=== PATIENT | male | born 1945 | race Caucasian/White ===

== ENCOUNTER 2019-09-25 07:35 | Outpatient (CLI) | payer MEDICARE, SELFPAY ==
[2019-09-25 08:16] LABS: Basophils Absolute Auto 0.1 K/mm3 (0.0-0.1); Basophils Percent Auto 0.8 % (0.2-1.2); Eosinophils Absolute Auto 0.3 K/mm3 (0-0.3); Eosinophils Percent Auto 3.4 % (0-4.4); Hematocrit 46.8 % (42.0-52.0); Immature Granulocyte Absolute 0.04 K/mm3 (0.00-0.031); Immature Granulocyte Percent A 0.5 % (0-0.5); Lymphocytes Absolute Auto 1.25 K/mm3 (0.9-3.2); Lymphocytes Percent Auto 17.1 % (18.3-44.2); Mean Corpuscular HGB Conc 32.1 g/dl (32-36); Mean Corpuscular Hemoglobin 30.3 pg (26-34); Mean Corpuscular Volume 94.5 fl (80-100); Mean Platelet Volume 9.8 fl (7.4-10.4); Monocytes Absolute Auto 0.6 K/mm3 (0.1-0.6); Monocytes Percent Auto 7.7 % (2.6-8.5); Neutrophils Absolute Auto 5.1 K/mm3 (1.3-6.7); Neutrophils Percent Auto 70.5 % (45.5-73.1); Platelet Count Result 187 k/mm3 (150-375); Red Blood Count 4.95 M/mm3 (4.6-6.20); Red Cell Distribution Width 12.7 % (11.5-14.5); White Blood Count 7.3 K/mm3 (4.5-10.0)
[2019-09-25 08:20] LABS: Hemoglobin A1C 6.7 % (<5.7)
[2019-09-25 08:23] LABS: Potassium 4.4 mmol/L (3.4-5.0)
[2019-09-25 08:28] LABS: Blood Urea Nitrogen 27 mg/dL (9-20); Calcium 9.3 mg/dL (8.4-10.2); Carbon Dioxide 27 mmol/L (22-30); Chloride 99 mmol/L (98-107); Cholesterol 140 mg/dL (0-200); Estimated Glomerular Filt Rate > 60; Glucose 147 mg/dL (75-110); HDL Direct 33 mg/dL; Sodium 139 mmol/L (137-145); Triglycerides 150 mg/dL (<150)
[2019-09-25 08:34] LABS: LDL Cholesterol Direct 68 mg/dL
[2019-09-25 09:01] LABS: Microalbumin Urine Random 9.7 mg/L (0-16.7)
[2019-09-25 09:16] LABS: Creatinine Urine 107.6 mg/dL
== END 2019-09-25 07:36 | disposition home or self-care (01) ==
PROVIDERS: PCP Internal Medicine; Visit Provider Internal Medicine
DX: I10 Essential (primary) hypertension (principal); E11.9 Type 2 diabetes mellitus without complications; E78.2 Mixed hyperlipidemia; Z79.899 Other long term (current) drug therapy
CPT/HCPCS: 36415; 80048; 80061; 82043; 83036; 84443; 85025

== ENCOUNTER 2020-02-04 07:00 | Outpatient (CLI) | payer MEDICARE, SELFPAY ==
[2020-02-04 08:05] LABS: Alanine Aminotransferase 19 U/L (4-50); Albumin Level 4.1 g/dL (3.5-5.1); Alkaline Phosphatase 102 U/L (38-126); Aspartate Amino Transferase 25 U/L (17-59); Bilirubin,Total 0.8 mg/dL (0.2-1.3); Blood Urea Nitrogen 19 mg/dL (9-20); Calcium 8.8 mg/dL (8.4-10.2); Carbon Dioxide 25 mmol/L (22-30); Chloride 105 mmol/L (98-107); Cholesterol 154 mg/dL (0-200); Estimated Glomerular Filt Rate > 60; Glucose 150 mg/dL (75-110); HDL Direct 28 mg/dL; Potassium 4.1 mmol/L (3.4-5.0); Sodium 136 mmol/L (137-145); Triglycerides 172 mg/dL (<150)
[2020-02-04 08:07] LABS: Hemoglobin A1C 6.8 % (<5.7)
[2020-02-04 08:17] LABS: LDL Cholesterol Direct 84 mg/dL
[2020-02-04 08:19] LABS: Creatinine Urine 72.2 mg/dL
[2020-02-04 08:23] LABS: MALB Creatinine Ratio 8.9 mg/g (0-30); Microalbumin Urine Random 6.4 mg/L (0-16.7)
== END 2020-02-04 07:01 | disposition home or self-care (01) ==
PROVIDERS: PCP Internal Medicine; Visit Provider Internal Medicine
DX: E11.9 Type 2 diabetes mellitus without complications (principal); I10 Essential (primary) hypertension; E78.2 Mixed hyperlipidemia
CPT/HCPCS: 36415; 80048; 80061; 80076; 82043; 83036

== ENCOUNTER 2020-03-22 00:51 | Outpatient (CLI) | payer MEDICARE, SELFPAY ==
[2020-03-22 18:41] LABS: SARS-CoV-2 RNA PCR Negative
== END 2020-03-22 00:52 | disposition home or self-care (01) ==
LOC: ANHCOVIDDT 00:51
PROVIDERS: PCP Internal Medicine; Visit Provider Internal Medicine Gastroenterology
DX: Z20.828 Contact with and (suspected) exposure to other viral communicable diseases (principal)
CPT/HCPCS: 87635; C9803; U0003

== ENCOUNTER 2020-03-24 01:48 | Day surgery (SDC) | payer MEDICARE, SELFPAY ==
[2020-03-17 08:59] VITALS: BMI 37.7
[2020-03-24 06:29] VITALS: BP 122/81; PULSE 61; RESP 18; TEMP 36.3; O2SAT 97; BMI 37.1
[2020-03-24] MEDS: LACTATED RINGERS 1,000 ML 150 ML IV CONT (06:42)
[2020-03-24 07:01] LABS: Glucose Point of Care 207 (65-105)
--- NOTE | 2020-03-24 07:09 | WPDANESEPPF ---
Anes - Initial Pre Proc Eval Procedure: Operation Date: 03/24/20 07:30 Proposed Procedures p Screening Colonoscopy - Quincy Blackwell MD Date/Time: 03/24/20 07:09 Surgeon: Quincy Blackwell MD Pre Op Diagnosis: neoplasm screening Patient Data Age: 74 Gender: M Height: 5 ft 8 in Weight: 110.9 kg Last Vital Signs Temp 97.4 F L 03/24/20 06:29 Pulse 61 03/24/20 06:29 Resp 18 03/24/20 06:29 BP 122/81 03/24/20 06:29 Pulse Ox 97 03/24/20 06:29 Allergies Allergy/AdvReac Type Severity Reaction Status Date / Time JACKIE Inhibitors Allergy Unknown Unknown Verified 03/24/20 06:27 Home Medications Medication Instructions Recorded Confirmed Type sitagliptin 100 mg tablet 100 mg PO DAILY #30 tablet 08/18/19 03/24/20 Rx amlodipine 2.5 mg tablet 2.5 mg PO DAILY 09/27/19 03/24/20 History aspirin 81 mg tablet,delayed 81 mg PO DAILY 09/27/19 03/24/20 History release dapagliflozin 5 mg tablet 5 mg PO DAILY 09/27/19 03/24/20 History melatonin 10 mg tablet 10 mg PO HS PRN tablet 09/27/19 03/24/20 History multivitamin 1 tablet PO DAILY 09/27/19 03/24/20 History nitroglycerin 0.4 mg sublingual 0.4 mg SUBLINGUAL Q5M PRN 09/27/19 03/17/20 History tablet omega-3 fatty acids 1,000 mg 1,000 mg PO BID 09/27/19 03/24/20 History capsule triamcinolone acetonide 0.1 % 1 applic TOPICAL BID PRN 09/27/19 03/24/20 History topical cream carvedilol 3.125 mg tablet 3.125 mg PO Q12H #180 tablet 12/06/19 03/24/20 Rx telmisartan 80 mg tablet 80 mg PO DAILY #90 tablet 12/28/19 03/24/20 Rx atorvastatin 40 mg tablet 40 mg PO DAILY #90 tablet 01/04/20 03/24/20 Rx ascorbic acid (vitamin C) 1,000 mg 1,000 mg PO Q12H 06/30/20 08/14/20 History tablet,extended release spironolactone 25 mg tablet 25 mg PO DAILY #90 tablet 02/08/20 03/24/20 Rx trazodone 50 mg PO .COMPLEX PRN 03/17/20 03/24/20 History Laboratory Tests 03/24/20 06:41 POC Capillary Glucose 207 mg/dl H mg/dl (65-105) Patient hx anesthesia problems: none Family hx anesthesia problems: none [facility] Past Medical History Medical History (Updated 02/08/20 @ 08:34 by Holly Perez CMA) Abnormal finding of blood chemistry ASHD (arteriosclerotic heart disease) Benign essential hypertension Bilateral cataracts BMI 37.0-37.9, adult Cardiac defibrillator in place Cardiomyopathy Colon cancer screening DM type 2 (diabetes mellitus, type 2) Elevated PSA Encounter for routine adult health examination without abnormal findings FHx: colon cancer Hyperlipidemia On residential drug therapy Vitamin D deficiency Surgical History Surgical History History of total right knee replacement Social History Social History Second hand tobacco smoke exposure: No Smoking end date: 08/11/85 Alcohol intake: never Anes - Eval Final PreProcedure Day of Procedure 03/24/20 07:09 Patient weight: obese Heart: regular rate and rhythm Lungs: clear to auscultation Airway: Mallampati scale class III Neurological: alert and oriented Last oral intake: >/= 8 hours ASA classification: IV Emergent: no Anesthetic plan: proceed Anesthesia type and monitoring: general GIVS and standard monitoring Informed Consent: The patient's anesthetic plan and its attendant risks and benefits were discussed with the patient/family/POA. Questions were solicited and answers provided to the satisfaction of the patient/family/POA.
--- NOTE | 2020-03-24 07:12 | PM.HPGS ---
History of Present Illness History of Present Illness Consent: Risks, benefits, and alternatives have been discussed and questions answered. Patient agrees to proceed with procedure. Chief complaint: neoplasm screening Narrative: Kenny Schneider is a 74 year old male Here for screening colonoscopy. 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 Vitamin D deficiency Surgical History Surgical History History of total right knee replacement Family History Family History Father Family history of cardiovascular disease Family history of heart disease in male family member before age 55 Mother Family history of cardiovascular disease Family history of heart disease in male family member before age 55 Social History Social History Second hand tobacco smoke exposure: No Smoking end date: 08/11/85 Alcohol intake: never Meds Home Medications and Allergies Home Medications Medication Instructions Recorded Confirmed Type sitagliptin 100 mg tablet 100 mg PO DAILY #30 tablet 08/18/19 03/24/20 Rx amlodipine 2.5 mg tablet 2.5 mg PO DAILY 09/27/19 03/24/20 History aspirin 81 mg tablet,delayed 81 mg PO DAILY 09/27/19 03/24/20 History release dapagliflozin 5 mg tablet 5 mg PO DAILY 09/27/19 03/24/20 History melatonin 10 mg tablet 10 mg PO HS PRN tablet 09/27/19 03/24/20 History multivitamin 1 tablet PO DAILY 09/27/19 03/24/20 History nitroglycerin 0.4 mg sublingual 0.4 mg SUBLINGUAL Q5M PRN 09/27/19 03/17/20 History tablet omega-3 fatty acids 1,000 mg 1,000 mg PO BID 09/27/19 03/24/20 History capsule triamcinolone acetonide 0.1 % 1 applic TOPICAL BID PRN 09/27/19 03/24/20 History topical cream carvedilol 3.125 mg tablet 3.125 mg PO Q12H #180 tablet 12/06/19 03/24/20 Rx telmisartan 80 mg tablet 80 mg PO DAILY #90 tablet 12/28/19 03/24/20 Rx atorvastatin 40 mg tablet 40 mg PO DAILY #90 tablet 01/04/20 03/24/20 Rx ascorbic acid (vitamin C) 1,000 mg 1,000 mg PO Q12H 02/08/20 03/24/20 History tablet,extended release spironolactone 25 mg tablet 25 mg PO DAILY #90 tablet 02/08/20 03/24/20 Rx trazodone 50 mg PO .COMPLEX PRN 03/17/20 03/24/20 History Allergies Allergy/AdvReac Type Severity Reaction Status Date / Time JACKIE Inhibitors Allergy Unknown Unknown Verified 03/24/20 06:27 Vital Signs Vital Signs - 24 hr 03/24/20 06:29 Temperature 36.3 C L Pulse Rate 61 Respiratory Rate 18 Blood Pressure 122/81 Pulse Oximetry 97 Exam Resp: Auscultation: clear to auscultation bilaterally Cardio: Rate: regular rate Rhythm: regular rhythm GI: GI Palp: Yes Soft to palpation and No Tenderness to palpation present (GI) Assessment and Plan Assessment and plan (1) Colon cancer screening: Code(s): Z12.11 - Encounter for screening for malignant neoplasm of colon Status: Acute Assessment and Plan: Colonoscopy with possible biopsy or polypectomy or cautery or injection of substances.
[2020-03-24 07:56] VITALS: BP 91/54; PULSE 82; RESP 20; O2SAT 99
[2020-03-24 08:06] VITALS: BP 98/58; PULSE 86; RESP 20; O2SAT 99
[2020-03-24 08:16] VITALS: BP 105/58; PULSE 84; RESP 20; O2SAT 99
== END 2020-03-24 08:36 | disposition home or self-care (01) ==
PROVIDERS: PCP Internal Medicine; Visit Provider Internal Medicine Gastroenterology
PROC: 0DJD8ZZ Inspection of Lower Intestinal Tract, Via Natural or Artificial Opening Endoscopic (ICD-10-PCS; CPT 45378; principal; 2020-03-24 07:30)
DX: Z12.11 Encounter for screening for malignant neoplasm of colon (principal); Z80.0 Family history of malignant neoplasm of digestive organs; D12.3 Benign neoplasm of transverse colon; D12.6 Benign neoplasm of colon, unspecified; D12.8 Benign neoplasm of rectum; K57.30 Diverticulosis of large intestine without perforation or abscess without bleeding; K64.8 Other hemorrhoids; I10 Essential (primary) hypertension; I25.10 Atherosclerotic heart disease of native coronary artery without angina pectoris; E11.9 Type 2 diabetes mellitus without complications; E78.5 Hyperlipidemia, unspecified; E66.9 Obesity, unspecified; Z68.37 Body mass index [BMI] 37.0-37.9, adult; I42.9 Cardiomyopathy, unspecified; Z95.810 Presence of automatic (implantable) cardiac defibrillator; Z79.899 Other long term (current) drug therapy; Z79.82 Long term (current) use of aspirin; Z96.651 Presence of right artificial knee joint
CPT/HCPCS: 45380; 45385; 88305; J2704; J7120

== ENCOUNTER 2020-05-27 07:10 | Outpatient (CLI) | payer MEDICARE, SELFPAY ==
[2020-05-27 07:34] LABS: Basophils Absolute Auto 0.1 K/mm3 (0.0-0.1); Basophils Percent Auto 0.9 % (0.2-1.2); Eosinophils Absolute Auto 0.2 K/mm3 (0-0.3); Eosinophils Percent Auto 2.6 % (0-4.4); Hematocrit 46.9 % (42.0-52.0); Hemoglobin 15.5 g/dL (14.0-18.0); Immature Granulocyte Absolute 0.03 K/mm3 (0.00-0.031); Immature Granulocyte Percent A 0.4 % (0-0.5); Lymphocytes Absolute Auto 1.09 K/mm3 (0.9-3.2); Lymphocytes Percent Auto 13.7 % (18.3-44.2); Mean Corpuscular Hemoglobin 30.7 pg (26-34); Mean Corpuscular Volume 92.9 fl (80-100); Mean Platelet Volume 9.4 fl (7.4-10.4); Monocytes Absolute Auto 0.7 K/mm3 (0.1-0.6); Neutrophils Absolute Auto 5.8 K/mm3 (1.3-6.7); Neutrophils Percent Auto 73.4 % (45.5-73.1); Platelet Count Result 197 k/mm3 (150-375); Red Blood Count 5.05 M/mm3 (4.6-6.20); Red Cell Distribution Width 12.6 % (11.5-14.5)
[2020-05-27 07:47] LABS: Hemoglobin A1C 6.6 % (<5.7)
[2020-05-27 08:02] LABS: Alanine Aminotransferase 29 U/L (4-50); Albumin Level 4.3 g/dL (3.5-5.1); Alkaline Phosphatase 94 U/L (38-126); Anion Gap 8 mmol/L (8-16); Aspartate Amino Transferase 33 U/L (17-59); Bilirubin,Total 0.7 mg/dL (0.2-1.3); Blood Urea Nitrogen 29 mg/dL (9-20); Calcium 9.6 mg/dL (8.4-10.2); Carbon Dioxide 29 mmol/L (22-30); Chloride 103 mmol/L (98-107); Cholesterol 156 mg/dL (0-200); Estimated Glomerular Filt Rate 59; Glucose 161 mg/dL (75-110); HDL Direct 32 mg/dL; Sodium 140 mmol/L (137-145); Triglycerides 158 mg/dL (<150)
[2020-05-27 08:12] LABS: LDL Cholesterol Direct 76 mg/dL
[2020-05-31 05:45] LABS: Homocysteine 18.2 umol/L (<11.4)
[2020-06-01 10:10] LABS: Vitamin D 1,25 (OH)2 Total 17 pg/mL (18-72); Vitamin D2 1,25 (OH)2 <8 pg/mL; Vitamin D3 1,25 (OH)2 17 pg/mL
== END 2020-05-27 07:11 | disposition home or self-care (01) ==
PROVIDERS: PCP Internal Medicine; Visit Provider Internal Medicine
DX: E78.2 Mixed hyperlipidemia (principal); I10 Essential (primary) hypertension; E55.9 Vitamin D deficiency, unspecified; E11.9 Type 2 diabetes mellitus without complications; R79.9 Abnormal finding of blood chemistry, unspecified
CPT/HCPCS: 36415; 80053; 80061; 82652; 83036; 83090; 85025

== ENCOUNTER 2020-10-28 06:59 | Outpatient (CLI) | payer MEDICARE, SELFPAY ==
[2020-10-28 07:28] LABS: Basophils Absolute Auto 0.1 K/mm3 (0.0-0.1); Basophils Percent Auto 0.8 % (0.2-1.2); Eosinophils Absolute Auto 0.3 K/mm3 (0-0.3); Eosinophils Percent Auto 3.5 % (0-4.4); Hematocrit 43.3 % (42.0-52.0); Hemoglobin 14.3 g/dL (14.0-18.0); Immature Granulocyte Absolute 0.07 K/mm3 (0.00-0.031); Immature Granulocyte Percent A 0.9 % (0-0.5); Lymphocytes Absolute Auto 0.92 K/mm3 (0.9-3.2); Lymphocytes Percent Auto 12.5 % (18.3-44.2); Mean Corpuscular Hemoglobin 30.8 pg (26-34); Mean Corpuscular Volume 93.3 fl (80-100); Mean Platelet Volume 8.9 fl (7.4-10.4); Monocytes Absolute Auto 0.6 K/mm3 (0.1-0.6); Neutrophils Absolute Auto 5.5 K/mm3 (1.3-6.7); Neutrophils Percent Auto 74.3 % (45.5-73.1); Platelet Count Result 210 k/mm3 (150-375); Red Blood Count 4.64 M/mm3 (4.6-6.20); Red Cell Distribution Width 12.6 % (11.5-14.5); White Blood Count 7.4 K/mm3 (4.5-10.0)
[2020-10-28 07:40] LABS: Anion Gap 5 mmol/L (8-16); Blood Urea Nitrogen 19 mg/dL (9-20); Carbon Dioxide 32 mmol/L (22-30); Chloride 104 mmol/L (98-107); Cholesterol 131 mg/dL (0-200); Estimated Glomerular Filt Rate > 60; Glucose 160 mg/dL (75-110); HDL Direct 30 mg/dL; Potassium 4.2 mmol/L (3.4-5.0); Sodium 141 mmol/L (137-145); Triglycerides 109 mg/dL (<150)
[2020-10-28 07:51] LABS: LDL Cholesterol Direct 63 mg/dL
[2020-10-28 08:15] LABS: Hemoglobin A1C 6.3 % (<5.7)
[2020-10-28 08:20] LABS: Vitamin D 25 Hydroxy 55.5 ng/mL
[2020-10-28 08:46] LABS: Creatinine Urine 89.2 mg/dL
[2020-10-28 08:49] LABS: MALB Creatinine Ratio 14.3 mg/g (0-30); Microalbumin Urine Random 12.8 mg/L (0-16.7)
== END 2020-10-28 07:00 | disposition home or self-care (01) ==
PROVIDERS: PCP Internal Medicine; Visit Provider Internal Medicine
DX: E11.9 Type 2 diabetes mellitus without complications (principal); E55.9 Vitamin D deficiency, unspecified; I10 Essential (primary) hypertension; R97.20 Elevated prostate specific antigen [PSA]; Z12.11 Encounter for screening for malignant neoplasm of colon; Z79.899 Other long term (current) drug therapy; Z95.810 Presence of automatic (implantable) cardiac defibrillator
CPT/HCPCS: 36415; 80048; 80061; 82043; 82306; 83036; 85025

== ENCOUNTER 2021-01-15 12:52 | Outpatient (CLI) | payer MEDICARE, SELFPAY ==
--- NOTE | ~2021-01-15 | XR_ITS ---
XR chest 2V 01/15/2021 13:59 Indication: Follow-up pacemaker insertion Procedure: 2 view chest Comparison: No prior studies for comparison. Findings: Moderate cardiomegaly. No focal air space disease, pulmonary edema, pleural effusion or nick pected pneumothorax. Pacemaker tip in the right ventricle. There are cholecystectomy clips. Impression: 1: No acute cardiopulmonary disease. 2: Moderate cardiomegaly. Reviewed, dictated and finalized at location B. Impression: 1: No acute cardiopulmonary disease. 2: Moderate cardiomegaly.
[2021-01-15 13:26] LABS: CRP < 0.5 mg/dL (<1.0)
[2021-01-15 13:32] LABS: Erythrocyte Sedimentation Rate 22 mm/hr (0-20)
--- NOTE | 2021-01-15 16:03 | P.PCNPFT_ITS ---
PFT Procedure Performed PFT Procedure Performed Spirometry with Pre/Post Bronchodilator Plethysmography (Lung Vol) Diffusing Cap (DLCO) Flow Vol Loop PFT Interpretation This is a pulmonary function test with pre and post-bronchodilator spirometry, plethysmography and diffusing capacity. The test was performed and results interpreted in accordance with the 2019 and 2005 ATS/ERS Task Force guidelines respectively using the Global Lung Function Initiative-2012 reference equations. Patient demonstrated good effort and cooperation. Reproducibility criteria were met. The quality of the pre bronchodilator spirometry maneuver was Grade A and post bronchodilator spirometry maneuver was Grade A. Findings: Spirometry: the contour the inspiratory and expiratory flow tracing are normal. The pre bronchodilator FVC is 2.50 L, 66% predicted. The pre bronchodilator FEV1 is 2.08 L, 73% predicted. The FEV1: FVC ratio was 83%. The post bronchodilator FVC is 2.49 L, representing no change. The post bronchodilator FEV1 is 2.14 L, representing a 3% increase. Plethysmography: The total lung capacity is 4.20 L, 63% predicted. The functional residual capacity is 2.00 L, 56% predicted. The residual volume is 1.69 L, 69% predicted. Diffusion capacity: The absolute diffusion capacity is 18.9, 79% predicted. Th e diffusing capacity corrected for alveolar volume is 5.16, 133% predicted. Impression: There is a mild restrictive ventilatory abnormality. The spirometry is normal without evidence of an obstructive abnormality. There is no significant improvement after inhaling a single dose of albuterol. The absolute diffusing capacity is normal and increased when corrected for alveolar volume. There are no prior studies for comparison
== END 2021-01-15 12:53 | disposition home or self-care (01) ==
PROVIDERS: PCP Internal Medicine; Visit Provider Internal Medicine
DX: R29.898 Other symptoms and signs involving the musculoskeletal system (principal); R53.1 Weakness; R06.02 Shortness of breath; R94.2 Abnormal results of pulmonary function studies; I51.7 Cardiomegaly
CPT/HCPCS: 36415; 71046; 85652; 86140; 94060; 94726; 94729

== ENCOUNTER 2021-03-12 08:10 | Outpatient (CLI) | payer MEDICARE, SELFPAY ==
[2021-03-12 08:36] LABS: Basophils Absolute Auto 0.1 K/mm3 (0.0-0.1); Basophils Percent Auto 0.6 % (0.2-1.2); Eosinophils Absolute Auto 0.2 K/mm3 (0-0.3); Eosinophils Percent Auto 2.1 % (0-4.4); Hematocrit 46.6 % (42.0-52.0); Immature Granulocyte Absolute 0.06 K/mm3 (0.00-0.031); Immature Granulocyte Percent A 0.7 % (0-0.5); Lymphocytes Absolute Auto 1.02 K/mm3 (0.9-3.2); Lymphocytes Percent Auto 11.2 % (18.3-44.2); Mean Corpuscular HGB Conc 32.2 g/dl (32-36); Mean Corpuscular Hemoglobin 30.2 pg (26-34); Mean Corpuscular Volume 93.8 fl (80-100); Mean Platelet Volume 9.3 fl (7.4-10.4); Monocytes Absolute Auto 0.8 K/mm3 (0.1-0.6); Monocytes Percent Auto 8.5 % (2.6-8.5); Neutrophils Percent Auto 76.9 % (45.5-73.1); Platelet Count Result 191 k/mm3 (150-375); Red Blood Count 4.97 M/mm3 (4.6-6.20); Red Cell Distribution Width 12.5 % (11.5-14.5); White Blood Count 9.1 K/mm3 (4.5-10.0)
[2021-03-12 08:48] LABS: Anion Gap 7 mmol/L (8-16); Blood Urea Nitrogen 25 mg/dL (9-20); Calcium 9.8 mg/dL (8.4-10.2); Carbon Dioxide 25 mmol/L (22-30); Chloride 103 mmol/L (98-107); Cholesterol 138 mg/dL (0-200); Estimated Glomerular Filt Rate 54; Glucose 150 mg/dL (65-110); HDL Direct 34 mg/dL; Potassium 4.8 mmol/L (3.4-5.0); Sodium 135 mmol/L (137-145); Triglycerides 164 mg/dL (<150)
[2021-03-12 09:01] LABS: LDL Cholesterol Direct 62 mg/dL
[2021-03-12 18:09] LABS: Hemoglobin A1C 6.9 % (<5.7)
== END 2021-03-12 08:11 | disposition home or self-care (01) ==
PROVIDERS: PCP Internal Medicine; Visit Provider Internal Medicine
DX: E11.9 Type 2 diabetes mellitus without complications (principal); I10 Essential (primary) hypertension; E78.2 Mixed hyperlipidemia; Z79.899 Other long term (current) drug therapy
CPT/HCPCS: 36415; 80048; 80061; 83036; 85025

== ENCOUNTER 2021-03-19 08:23 | Outpatient (CLI) | payer MEDICARE, SELFPAY ==
[2021-03-19 08:57] LABS: Anion Gap 7 mmol/L (8-16); Blood Urea Nitrogen 22 mg/dL (9-20); Calcium 9.5 mg/dL (8.4-10.2); Carbon Dioxide 26 mmol/L (22-30); Chloride 101 mmol/L (98-107); Estimated Glomerular Filt Rate 54; Glucose 152 mg/dL (65-110); Magnesium 1.9 mg/dL (1.6-2.3); Potassium 4.5 mmol/L (3.4-5.0); Sodium 134 mmol/L (137-145)
== END 2021-03-19 08:24 | disposition home or self-care (01) ==
PROVIDERS: PCP Internal Medicine; Visit Provider Internal Medicine
DX: I48.92 Unspecified atrial flutter (principal); E11.9 Type 2 diabetes mellitus without complications; Z79.899 Other long term (current) drug therapy; Z95.810 Presence of automatic (implantable) cardiac defibrillator
CPT/HCPCS: 36415; 80048; 83735

== ENCOUNTER → 2021-05-08 14:44 | Outpatient (REF) | payer MEDICARE, SELFPAY | LOC: ANHLAB 14:44 | PROVIDERS: PCP Internal Medicine; Visit Provider Nurse Practitioner | DX: L98.9 Disorder of the skin and subcutaneous tissue, unspecified (principal) | CPT/HCPCS: 88305 ==

== ENCOUNTER 2021-05-26 10:01 | Outpatient (CLI) | payer MEDICARE, SELFPAY ==
--- NOTE | ~2021-05-26 | XR_ITS ---
XR hip LT min 2V 05/26/2021 10:14 Indication: Left hip pain Procedure: 2 views left hip Comparison: No prior studies for comparison. Findings: There is a possible nondisplaced left femoral neck fracture. There is cortical buckling abner ng the lateral margin of the femoral neck. Mild osteoarthritis of the hip. No focal soft tissue abnor mality. Impression: 1: Possible nondisplaced left femoral neck fracture. Consider correlation with CT or MRI. Reviewed, dictated and finalized at location A. Impression: 1: Possible nondisplaced left femoral neck fracture. Consider correlation with CT or MRI.
== END 2021-05-26 10:02 | disposition home or self-care (01) ==
LOC: ANHIMG 10:02
PROVIDERS: PCP Internal Medicine; Visit Provider Internal Medicine
DX: M25.552 Pain in left hip (principal); R93.6 Abnormal findings on diagnostic imaging of limbs
CPT/HCPCS: 73502

== ENCOUNTER 2021-05-28 15:24 | Outpatient (CLI) | payer MEDICARE, SELFPAY ==
--- NOTE | ~2021-05-28 | CT_ITS ---
EXAMINATION: CT hip LT wo con DATE: 05/28/2021 15:40 INDICATION: Left hip pain. Possible femoral neck fracture. TECHNIQUE: High resolution computed tomography (CT) of the left hip was performed without intravenous contrast. Additional sagittal and coronal reconstructions were performed. Automated exposure control and iterative reconstruction technique were employed. The dose-length product was 562.43 mGy-cm. COMPARISON: Left hip radiographs dated 05/26/2021 FINDINGS: Bone alignment is normal. No fracture. Mild left hip osteoarthritis. Small anterosuperior os acetabul um with large marginal osteophytes along the superolateral to posterior rim of the left acetabulum. N o left hip joint effusion. Small sclerotic bone islands at the left sacral ala, inferior to the left greater trochanter and superior to the left acetabulum. Additional mild osteoarthritis at the left sa croiliac joint. Prominent diverticulosis along the sigmoid and visualized distal descending colon wit hout adjacent inflammatory stranding to suggest diverticulitis. Bladder is normal. Prostatomegaly melodie suring 6.3 x 4.6 cm. 4.3 x 1.3 x 2.8 cm soft tissue density along the left gonadal vein proximal to t he entrance to the inguinal canal. The inguinal canal appears to blindly terminate proximal to the sc rotum just in the soft tissue density represents an undescended left testis. No pathologically enlarg ed left pelvic or inguinal lymphadenopathy. No free fluid in the visualized pelvis. IMPRESSION: 1. Mild left hip osteoarthritis. No acute osseous abnormality. 2. 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 3. Prominent diverticulosis. 4. Prostatomegaly. Reviewed, dictated and finalized at location A. IMPRESSION: 1. Mild left hip osteoarthritis. No acute osseous abnormality. 2. Undescended left testis located in the left hemipelvis proximal to the ingui nal canal. 3. Prominent diverticulosis. 4. Prostatomegaly.
== END 2021-05-28 15:25 | disposition home or self-care (01) ==
LOC: ANHIMG 15:25
PROVIDERS: PCP Internal Medicine; Visit Provider Orthopaedic Surgery
DX: S79.922A Unspecified injury of left thigh, initial encounter (principal); M16.12 Unilateral primary osteoarthritis, left hip; Q53.9 Undescended testicle, unspecified; K57.90 Diverticulosis of intestine, part unspecified, without perforation or abscess without bleeding; N40.0 Benign prostatic hyperplasia without lower urinary tract symptoms
CPT/HCPCS: 73700

== ENCOUNTER 2021-06-12 12:18 | Inpatient (IN) | payer MEDICARE, SELFPAY ==
[2021-06-12] VITALS (39 sets, daily range): BP systolic 102–151; BP diastolic 61–107; PULSE 52–110; RESP 12–27; TEMP 36.8–37.2; O2SAT 93–100; BMI 36.9
--- NOTE | ~2021-06-12 | XR_ITS ---
EXAMINATION: XR chest 1V portable INDICATION: Defibrillator firing, arrhythmia TECHNIQUE: Portable AP chest at 1342 hours COMPARISON: 01/15/2021 FINDINGS: There is stable cardiomegaly. A single lead pacemaker of the left chest wall ends with its lead in the right ventricle. There is a mild diffuse interstitial pattern. No pleural effusion or pne umothorax is identified. IMPRESSION: 1. Cardiomegaly with likely mild pulmonary edema. Reviewed, dictated and finalized at location B.
--- NOTE | 2021-06-12 12:28 | ECG_ITS ---
Measurements Intervals [place] Rate: 85 P: -75 [place]: 115 QRS: -66 QRSD: 141 T: 64 QT: 390 QTc: 465 Interpretive Statements SINUS RHYTHM WITH FIRST DEGREE AV BLOCK ATRIAL AND VENTRICULAR PREMATURE COMPLEXES LEFT BUNDLE BRANCH BLOCK BASELINE ARTIFACT- I, II, III, AVR, AVL, AVF, V1-V6 ABNORMAL ECG Electronically Signed On 06-12-2021 14:22:54 CDT by Niels Brower D.O.
--- NOTE | 2021-06-12 12:45 | PC.NURSE ---
While in room, patient stated he began to feel lightheaded. Upon entering room with NICO Lopez, patient's heart rhythm appeared to show VTACH. Patient was then defibrillated by ICD. Patient alert and oriented after shock. Patient sinus tachycardic on the monitor.
--- NOTE | 2021-06-12 12:52 | ED.ARRPALP ---
HPI - Arrhythmia/Palpitations General Chief Complaint: Arrhythmia/Palpitations Stated Complaint: DEFIB FIRING Time Seen by Provider: 06/12/21 12:30 Source: patient, RN notes reviewed and old records reviewed Mode of arrival: ambulatory Limitations: no limitations History of Present Illness HPI narrative: This is a 76 year old male with history of hypertension, atrial fibrillation with defibrillator who presents for evaluation defibrillator firing. Patient states he was riding in car on his way back home when he felt his defibrillator fire with small episode of preceding dizziness . This occurred at 1150 am and he states his defibrillator fired again 15 minutes later. He denies chest pain, shortness of breath, nausea, vomiting. He reports 2 months his defibrillator fired and he was found to have gone into episode of atrial flutter. He was started on Xarelto and his carvedilol was increased to 3.125 mg bid. 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 Related Data Home Medications Medication Instructions Recorded Confirmed multivitamin 1 tablet PO DAILY 09/27/19 06/12/21 omega-3 fatty acids 1,000 mg 1,000 mg PO DAILY 09/27/19 06/12/21 capsule ascorbic acid (vitamin C) 1,000 mg 1,000 mg PO Q12H 02/08/20 06/12/21 tablet,extended release rivaroxaban 20 mg tablet 20 mg PO DAILY 03/14/21 06/12/21 coQ10 (ubiquinol) 200 mg PO DAILY 06/12/21 06/12/21 dapagliflozin [Farxiga] 5 mg PO DAILY 06/12/21 06/12/21 Allergies Allergy/AdvReac Type Severity Reaction Status Date / Time No Known Allergies Allergy Verified 06/12/21 19:09 Review of Systems Review of Systems: All systems reviewed & are unremarkable except as noted in HPI and below PMFSH Past Medical History Medical History A-fib Abnormal finding of blood chemistry ASHD (arteriosclerotic heart disease) Atrial flutter Benign essential hypertension Bilateral cataracts BMI 37.0-37.9, adult Cardiac defibrillator in place Cardiomyopathy Colon cancer screening DM type 2 (diabetes mellitus, type 2) Elevated PSA Encounter for routine adult health examination without abnormal findings FHx: colon cancer Heavy sensation of lower extremity History of colon polyps History of lower leg fracture bilateral Hyperlipidemia Left hip pain On halfway drug therapy Pacemaker Shortness of breath Vitamin D deficiency Weakness Surgical History Surgical History History of cholecystectomy History of total right knee replacement Family History Family History (Updated 06/12/21 @ 18:08 by Izzy Vee RN) Father Family history of heart disease in male family member before age 55 Family history of cardiovascular disease Mother Family history of heart disease in male family member before age 55 Family history of cardiovascular disease Sibling Colon cancer Social History Social History Social History: Surrogate decision maker: Delaney Schneider, . Code status: Full code. Smoking status: Never smoker Second hand tobacco smoke exposure: No Smoking end date: 08/11/85 Alcohol intake: never Substance use: never Substance use type: does not use Additional living arrangements comments: The patient lives in [place] with his . Additional occupation/education comments: Retired [employer] [facility] [employer]. Also worked at [employer] Exam Const: General: no acute distress and alert Orientation/consciousness: patient oriented x3 Eyes: EOM: EOMs intact bilaterally Chest: Chest palpation & inspection: normal inspection of the chest Resp: Effort & Inspection: normal respiratory effort and no retractions Auscultation: clear to auscultation bilaterally Cardio: Rate: regular rate Rhythm: regular rhythm Heart sounds: no murmurs GI: GI Palp: Yes Soft to palpati
[2021-06-12 13:03] LABS: INR 2.1
--- NOTE | 2021-06-12 13:05 | PC.NURSE ---
Spoke to Verónica at [employer]. Verónica states a rep will be here in about 40 minutes. NICO mccoy.
[2021-06-12] MEDS: AMIODARONE 150 MG/D5W 100 ML 150 MG/100 ML BAG 600 MG IV CONT ×2 (13:37→15:24)
--- NOTE | 2021-06-12 13:39 | PC.NURSE ---
Addendum entered by Richard Isabel RN 06/12/21 13:44: Correction: Patient been shocked 5 times in total. Original Note: Patient shocked 3 times in total in the ED. [email or web address] tech in ED at this time.
[2021-06-12] MEDS: AMIODARONE 360 MG/D5W 200 ML 360 MG/200 ML BAG 33.33 MG IV CONT (13:49)
[2021-06-12 13:57] LABS: Anion Gap 6 mmol/L (8-16); Blood Urea Nitrogen 22 mg/dL (9-20); Calcium 9.4 mg/dL (8.4-10.2); Carbon Dioxide 29 mmol/L (22-30); Chloride 102 mmol/L (98-107); Estimated Glomerular Filt Rate 54; Glucose 150 mg/dL (65-110); Potassium 3.9 mmol/L (3.4-5.0); Sodium 137 mmol/L (137-145)
[2021-06-12 14:07] LABS: Magnesium 1.9 mg/dL (1.6-2.3)
[2021-06-12 14:18] LABS: Basophils Absolute Auto 0.1 K/mm3 (0.0-0.1); Basophils Percent Auto 0.7 % (0.2-1.2); Eosinophils Absolute Auto 0.2 K/mm3 (0-0.3); Eosinophils Percent Auto 2.2 % (0-4.4); Hematocrit 46.1 % (42.0-52.0); Hemoglobin 15.4 g/dL (14.0-18.0); Immature Granulocyte Absolute 0.19 K/mm3 (0.00-0.031); Immature Granulocyte Percent A 1.9 % (0-0.5); Lymphocytes Absolute Auto 1.28 K/mm3 (0.9-3.2); Lymphocytes Percent Auto 13.1 % (18.3-44.2); Mean Corpuscular HGB Conc 33.4 g/dl (32-36); Mean Corpuscular Hemoglobin 31.4 pg (26-34); Mean Corpuscular Volume 94.1 fl (80-100); Mean Platelet Volume 9.8 fl (7.4-10.4); Monocytes Percent Auto 10.4 % (2.6-8.5); Neutrophils Percent Auto 71.7 % (45.5-73.1); Platelet Count Result 209 k/mm3 (150-375); Red Cell Distribution Width 12.5 % (11.5-14.5); White Blood Count 9.8 K/mm3 (4.5-10.0)
--- NOTE | 2021-06-12 15:08 | WPDCNINT ---
Assessment and Plan Assessment and plan (1) Ventricular tachycardia, incessant: Code(s): I47.2 - Ventricular tachycardia Status: Acute Assessment and Plan: Patient presented with complaint of multiple AICD shocks and has had multiple additional shocks in ER. Interrogation of AICD confirms incessant ventricular tachycardia. His EKG otherwise shows sinus rhythm with bundle branch block. At the moment, patient is asymptomatic and hemodynamically stable in between AICD shocks and is on room air. He will need to be closely monitored in ICU for any possible deterioration. Patient was given amio bolus and started on amiodarone infusion after consultation with Cardiology. I discussed with Cardiology and will give additional amiodarone bolus of 150 mg at this time Also will give 1 g of magnesium sulfate We may need to add lidocaine if this persists and this decision will be deferred to Cardiology. Also discussed with patient possibility of requiring intubation and sedation if ventricular tachycardia became severe requiring frequent shocks or hemodynamic instability. 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 as he told me that he had cardiac catheterization done prior to AICD placement and did not had any stent placed or bypass surgery Recent echo done in March of this year showed EF of 25-30%, moderate MR, moderate aortic stenosis, mild TR, severely enlarged left ventricular cavity and diastolic dysfunction As above mentioned continue beta-mairsela, ARB, Aldactone, anticoagulation (3) Atrial flutter: Qualifiers: Atrial flutter type: unspecified Qualified Code(s): I48.92 - Unspecified atrial flutter Code(s): I48.92 - Unspecified atrial flutter Status: Acute Assessment and Plan: Patient has history of atrial flutter which is likely proximal as currently he is in sinus rhythm with bundle-branch block (4) DM type 2 (diabetes mellitus, type 2): Qualifiers: Diabetes mellitus usp insulin use: without usp use Diabetes mellitus complication status: without complication Qualified Code(s): E11.9 - Type 2 diabetes mellitus without complications Code(s): E11.9 - Type 2 diabetes mellitus without complications Status: Acute Assessment and Plan: Sliding scale insulin Hold p.o. diabetic medications at this time (5) Benign essential hypertension: Code(s): I10 - Essential (primary) hypertension Status: Acute Assessment and Plan: Continue telmisartan Aldactone and Coreg (6) Electrolyte abnormality: Code(s): E87.8 - Other disorders of electrolyte and fluid balance, not elsewhere classified Status: Acute Assessment and Plan: Patient has magnesium of 1.9. In light of recurrent VTs, I will give him 1 g of magnesium Additional Plan DVT prophylaxis -continue Xarelto Nutrition -NPO at this Code Status - Full Code Total Critical Care Time - minutes Due to a high probability of clinically significant, life threatening deterioration, the patient required my highest level of preparedness to intervene emergently and I personally spent this critical care time directly and personally managing the patient. This critical care time included obtaining a history; examining the patient; pulse oximetry; ordering and review of studies; arranging urgent treatment with development of a management plan; evaluation of patient's response to treatment; frequent reassessment; and discussions with other providers
--- NOTE | 2021-06-12 15:17 | PC.NURSE ---
Per EDP Jessica, infuse another 150mg bolus of Amiodarone.
[2021-06-12] MEDS: MAGNESIUM SULF 1 GM/D5W 100 ML 1 GM/100 ML BAG IVPB ×2 (15:26→15:40)
[2021-06-12] MEDS: METOPROLOL TARTRATE INJ 5 MG/5 ML VIAL IV PUSH (15:32)
--- NOTE | 2021-06-12 15:43 | PC.NURSE ---
NICO Adorno in room. Per Dr. Adorno, give 5mg Metoprolol IVP and another 1G of magnesium.
--- NOTE | 2021-06-12 16:02 | PM.CNCAR ---
Assessment and Plan Assessment and plan (1) Ventricular tachycardia, incessant: Code(s): I47.2 - Ventricular tachycardia Status: Acute Assessment and Plan: Recurrent wide complex tachycardia consistent with ventricular tachycardia status post multiple appropriate ICD discharge, failed ATP attempts. Severe LV systolic dysfunction EF 25-30% by echocardiogram March 2021, nonischemic etiology. IV amiodarone boluses, infusion loading, IV beta-marislea, IV magnesium, IV lidocaine as needed for suppression of recurrent ventricular cardiac to prevent ongoing ICD defibrillations. Monitor electrolytes closely. Admit to ICU on telemetry. Patient may require transfer to high-level care outside facility with electrophysiology consultative services if unable to control medically. Patient has remained hemodynamically stable. Benzodiazepines may also be useful if he has with caution given recurrent ICD shocks and to assist in suppression of ventricular tachyarrhythmias. Repeat 2D echocardiogram in a.m.. Precise etiology for recurrent ventricular tachycardia remains unclear although patient clearly is at high risk given severe LV dysfunction. He has no history of CAD and provides no anginal symptoms. Trend troponin. Discontinue carvedilol in favor of metoprolol 25 mg p.o. q.6 hours. Continue amiodarone load with boluses as necessary. May repeat lidocaine 50 mg in 20 minutes after initial bolus if recurrent VT requiring defibrillation. Check TSH. IV metoprolol tartrate if ongoing recurrent VT. Of unable to suppress may consider transferred to outside hospital such as [facility]. I discussed with Dr. Farrar who agreed to accept if required and pending bed availability. Thankfully, patient is hemodynamically stable these events yet continues to experience traumatic recurrent fibrillations which is unacceptable. Aggressive medical antiarrhythmic therapy as tolerated. Further recommendations to follow. Discussed with patient and his at length as well as Dr. Lopez of the emergency department. They verbalized understanding and agreed with the plan of care. Patient is aware of the potential life-threatening nature of ventricular tachycardia and the indication for ICD implantation initially for primary prophylaxis. That being said there is no question his ICD has saved his life thus far today yet patient remains in a dangerous clinical scenario requiring aggressive medical management as tolerated due to the risk for further associated complications and/or . (2) ICD (implantable cardioverter-defibrillator) discharge: Code(s): Z45.02 - Encounter for adjustment and management of automatic implantable cardiac defibrillator Status: Acute Assessment and Plan: As above, normal device function appropriate ICD defibrillations for generally monomorphic ventricular tachycardia although I have seen at least 2 separate, stable morphologies. (3) Nonischemic cardiomyopathy: Code(s): I42.8 - Other cardiomyopathies Status: Acute Assessment and Plan: Patient is not currently in significant clinical decompensated heart failure. Chest x-ray with mild pulmonary vascular congestion. Patient hypoxic or complaints significant dyspnea. He denies any weight gain or lower extremity edema. Continue home medical therapy for now. (4) DM type 2 (diabetes mellitus, type 2): Qualifiers: Diabetes mellitus rehab manager insulin use: without assisted use Diabetes mellitus complication status: without complication Qualified Code(s): E11.9 - Type 2 diabetes mellitus without complications Code(s): E11.9 - Type 2 diabetes mellitus without complications Status: Acute Assessment and Plan: Per primary service. (5) Hyperlipidemia associated with type 2 diabetes mellitus: Code(s): E11.69 - Type 2 diabetes mellitus with other specified complication; E78.5 - Hyperlipidemia, unsp
[2021-06-12 17:08] LABS: Troponin I 0.082 ng/mL (0.000-0.034)
--- NOTE | 2021-06-12 17:32 | ADMGEN ---
This patient, Kenny Schneider, was admitted to Intensive Care Unit-5 @1725. Patient/family oriented to hospital policies and general routines including ID bracelet, bed and alarms, visiting hours, pain management, procedures, bathroom and other care routines, personal items, smoking policy, room service/diet, and visiting hours. Information on how to activate the Rapid Response Team has been discussed. Patient/Family are encouraged to report perceived risks to care and to ask questions if they do not understand what they are told or what they should do.
[2021-06-12 17:47] LABS: Hemoglobin A1C 6.6 % (<5.7)
[2021-06-12] MEDS: METOPROLOL TARTRATE 25 MG TABLET PO (18:40)
[2021-06-12] MEDS: RIVAROXABAN 20 MG TABLET PO (18:41)
[2021-06-12 18:44] LABS: Glucose Point of Care 171 mg/dl (65-105)
--- NOTE | 2021-06-12 19:00 | PM.IMHP ---
H&P: HPI History of Present Illness Date/Time: 06/12/21 19:00 Chief Complaint: Defibrillator firing. Narrative: This is a very pleasant 76-year-old male with history of nonischemic cardiomyopathy, hypertension, hyperlipidemia, and diabetes who presented to the emergency department earlier today via private vehicle for evaluation after his defibrillator fired. He was in his usual state of health this morning and while driving down the road he began to feel lightheaded and his vision was blurry. Shortly thereafter his defibrillator fired and did so once again approximately 6 minutes later. His then drove him to the emergency department for evaluation and he reports that his device has fired at least 17 more time since arrival. On interrogation he was noted to have monomorphic wide complex tachycardia consistent with ventricular tachycardia with heart rates 220-280 beats per minute. In the emergency department he received a total of 2 boluses of amiodarone, a 100 mg bolus of lidocaine, 5 mg IV push of metoprolol, and 2 mg of IV magnesium. At the time my evaluation he is resting comfortably and has no current complaints. He states compliance with his home medications. The only change in medication recently was the addition of right peroxide van after he was found to have paroxysmal atrial flutter on previous interrogation. He has not had exertional chest pain or shortness of breath. No orthopnea, PND, or lower extremity edema. Review of Systems Review of Systems: Twelve systems were reviewed. No fever, chills, sweats. No recent cold or flu symptoms. He denies sick contacts. No nausea, vomiting, or diarrhea. Except as documented, all other systems were reviewed and are negative. [facility] Past Medical History Medical History (Updated 06/12/21 @ 20:46 by Emi Ryder PA-C) Atrial flutter Benign essential hypertension Bilateral cataracts Cardiac arrest with ventricular fibrillation (2013) Chronic anticoagulation History of colon polyps Hyperlipidemia Hypertension Nonischemic cardiomyopathy Echocardiogram in March 2021 showed severe LV systolic dysfunction with an EF of 25 to 30%. Type 2 diabetes mellitus Hemoglobin A1c was 6.6% on 06/12/2021. Vitamin D deficiency Surgical History Surgical History (Updated 06/12/21 @ 20:39 by Emi Ryder PA-C) History of cholecystectomy History of implantable cardioverter-defibrillator (ICD) insertion History of open reduction and internal fixation (ORIF) procedure Bilateral lower extremity fractures. History of total right knee replacement Family History Family History Father Family history of heart disease in male family member before age 55 Family history of cardiovascular disease Mother Family history of heart disease in male family member before age 55 Family history of cardiovascular disease Sibling Colon cancer Social History Social History (Updated 06/12/21 @ 20:40 by Emi Ryder PA-C) Social History: Surrogate decision maker: Delaney Schneider, . Code status: Full code. Smoking status: Never smoker Second hand tobacco smoke exposure: No Smoking end date: 08/11/85 Alcohol intake: never Substance use: never Substance use type: does not use Additional living arrangements comments: The patient lives in [place] with his . Additional occupation/education comments: Retired [employer]. Also worked at [employer]. Meds Home Medications and Allergies Home Medications Medication Instructions Recorded Confirmed Type sitagliptin 100 mg tablet 100 mg PO DAILY #30 tablet 08/18/19 04/04/21 Rx multivitamin 1 tablet PO DAILY 09/27/19 04/04/21 History omega-3 fatty acids 1,000 mg 1,000 mg PO BID 09/27/19 04/04/21 History capsule ascorbic acid (vitamin C) 1,000 mg 1,000 mg PO Q12H 02/08/20 04/04/21 History tablet,extended release cholecalci
[2021-06-12] MEDS: AMIODARONE 360 MG/D5W 200 ML 360 MG/200 ML BAG 16.67 MG IV CONT (19:38)
[2021-06-13] VITALS (20 sets, daily range): BP systolic 107–128; BP diastolic 51–99; PULSE 48–62; RESP 13–22; TEMP 36.5–36.8; O2SAT 93–99
[2021-06-13] MEDS: METOPROLOL TARTRATE 25 MG TABLET PO ×3 (00:08→22:47)
[2021-06-13 00:15] LABS: Glucose Point of Care 184 mg/dl (65-105)
[2021-06-13 05:21] LABS: Alanine Aminotransferase 22 U/L (4-50); Albumin Level 3.7 g/dL (3.5-5.1); Alkaline Phosphatase 74 U/L (38-126); Anion Gap 9 mmol/L (8-16); Aspartate Amino Transferase 29 U/L (17-59); Blood Urea Nitrogen 18 mg/dL (9-20); Calcium 8.5 mg/dL (8.4-10.2); Carbon Dioxide 23 mmol/L (22-30); Chloride 103 mmol/L (98-107); Estimated CRCL calculation 70 ml/min; Estimated Glomerular Filt Rate > 60; Glucose 142 mg/dL (65-110); Magnesium 2.2 mg/dL (1.6-2.3); Phosphorus 2.8 mg/dL (2.5-4.5); Potassium 4.3 mmol/L (3.4-5.0); Sodium 135 mmol/L (137-145)
--- NOTE | 2021-06-13 06:11 | PC.NURSE ---
Spoke With Dr. Koehler regarding HR and 6am dose of lopressor. Hold morning Lopressor. Continue Amio drip.
[2021-06-13] MEDS: AMIODARONE 360 MG/D5W 200 ML 360 MG/200 ML BAG 16.67 MG IV CONT (06:22)
[2021-06-13] MEDS: TELMISARTAN 40 MG TABLET 80 MG PO (09:22)
[2021-06-13] MEDS: ATORVASTATIN 40 MG TABLET PO (09:22)
[2021-06-13] MEDS: SPIRONOLACTONE 25 MG TABLET PO (09:22)
--- NOTE | 2021-06-13 09:57 | WPDINTPN ---
Progress Note: A&P Assessment and Plan (1) Ventricular tachycardia, incessant: Code(s): I47.2 - Ventricular tachycardia Status: Acute Assessment and Plan: Patient presented with complaint of multiple AICD shocks and has had multiple additional shocks in ER. Interrogation of AICD confirms incessant ventricular tachycardia. His EKG otherwise shows sinus rhythm with bundle branch block. he was admitted to ICU for close monitoring for any possible deterioration. Patient was given amio bolus and started on amiodarone infusion after consultation with Cardiology. later he was given another amiodarone bolus. Patient was given a bolus of lidocaine and 2 g of magnesium sulfate patient was switched to metoprolol q.6 hours which I will change to q.8 hours at this time due to sinus bradycardia No recurrence of VT or AICD shocks since arrival to ICU (2) Cardiomyopathy: Code(s): I42.9 - Cardiomyopathy, unspecified Status: Acute Assessment and Plan: Although although details are not available at this time, it appears the patient has nonischemic cardiomyopathy as he told me that he had cardiac catheterization done prior to AICD placement and did not had any stent placed or bypass surgery Recent echo done in March of this year showed EF of 25-30%, moderate MR, moderate aortic stenosis, mild TR, severely enlarged left ventricular cavity and diastolic dysfunction Continue beta-marisela, ARB, Aldactone, anticoagulation (3) Atrial flutter: Qualifiers: Atrial flutter type: unspecified Qualified Code(s): I48.92 - Unspecified atrial flutter Code(s): I48.92 - Unspecified atrial flutter Status: Acute Assessment and Plan: Patient has history of atrial flutter which is likely proximal as currently he is in sinus rhythm with bundle-branch block (4) DM type 2 (diabetes mellitus, type 2): Qualifiers: Diabetes mellitus group home insulin use: without group home use Diabetes mellitus complication status: without complication Qualified Code(s): E11.9 - Type 2 diabetes mellitus without complications Code(s): E11.9 - Type 2 diabetes mellitus without complications Status: Acute Assessment and Plan: continue Sliding scale insulin resume p.o. diabetic medications at this time (5) Benign essential hypertension: Code(s): I10 - Essential (primary) hypertension Status: Acute Assessment and Plan: Continue telmisartan Aldactone and metop (6) Electrolyte abnormality: Code(s): E87.8 - Other disorders of electrolyte and fluid balance, not elsewhere classified Status: Acute Assessment and Plan: potassium and magnesium normal range this morning Additional Plan DVT prophylaxis -continue Xarelto Nutrition - resume diet Code Status - Full Code Transfer out of ICU today Subjective Date/time seen: 06/13/21 09:57 Patient states he feels fine this morning and did not sleep well due to alarms. He has not had any shocks since he arrived to ICU. Denies any lightheadedness or dizziness. Denies any chest pain shortness of breath headache nausea vomiting abdominal pain or diarrhea. All other systems were reviewed and were negative. Intermittent sinus bradycardia or paced rhythm. blood pressure is adequate and patient is afebrile. He is on room air Review of Systems Review of Systems: All systems reviewed & are unremarkable except as noted in HPI and below (Subjective) Exam Narrative: General: Pt is alert awake and in NAD Lungs/Chest: Trachea central Clear BS B/L, No crackles or wheezing. Patient has AICD in left anterior chest and skin overlying shows no abnormality redness or swelling Cardiac: RRR. Normal S1 S2. No murmurs Circulation: Pedal pulses are intact and symmetrical. Abdomen: Normal bowel sounds.. Obese Soft. NT. ND. Extremities: No clubbing, cyanosis or edema. Warm : [place] in place Neurologic: Follows commands. Move
[2021-06-13] MEDS: PERFLUTREN LIPID MICROSPHERES 1.5 ML VIAL DILUTED TO 10 ML TOTAL VOLUME IV PUSH (11:34)
[2021-06-13] MEDS: EMPAGLIFLOZIN 10 MG TABLET PO (12:07)
--- NOTE | 2021-06-13 12:12 | PM.PNCARD ---
Progress Note: A&P Assessment and Plan (1) Ventricular tachycardia, incessant: Code(s): I47.2 - Ventricular tachycardia Status: Acute Assessment and Plan: Recurrent wide complex tachycardia consistent with ventricular tachycardia status post multiple appropriate ICD discharge, failed ATP attempts. Severe LV systolic dysfunction EF 25-30% by echocardiogram March 2021, nonischemic etiology. Metoprolol reduced due to more frequent ventricular pacing by Critical Care which is reasonable. VT storm resolved with IV amiodarone, lidocaine bolus, beta-marisela therapy. Transition to oral amiodarone 400 mg t.i.d., change metoprolol tartrate to 25 mg b.i.d. with plans to change to Toprol XL 25 mg tomorrow morning. If no recurrent VT overnight consider discharge home tomorrow with plan follow-up with electrophysiology. 2D echocardiogram personally reviewed EF 25% largely unchanged compared to prior study. If no recurrent VT this afternoon may transfer to IMU. Discussed with critical care physician Dr Koehler who is in agreement. (2) ICD (implantable cardioverter-defibrillator) discharge: Code(s): Z45.02 - Encounter for adjustment and management of automatic implantable cardiac defibrillator Status: Acute Assessment and Plan: As above, normal device function appropriate ICD defibrillations for generally monomorphic ventricular tachycardia although I have seen at least 2 separate, stable morphologies. (3) Nonischemic cardiomyopathy: Code(s): I42.8 - Other cardiomyopathies Status: Acute Assessment and Plan: Patient is not currently in significant clinical decompensated heart failure. (4) DM type 2 (diabetes mellitus, type 2): Qualifiers: Diabetes mellitus complication status: without complication Diabetes mellitus hitting coach insulin use: without hitting coach use Qualified Code(s): E11.9 - Type 2 diabetes mellitus without complications Code(s): E11.9 - Type 2 diabetes mellitus without complications Status: Acute Assessment and Plan: Per primary service. (5) Hyperlipidemia associated with type 2 diabetes mellitus: Code(s): E11.69 - Type 2 diabetes mellitus with other specified complication; E78.5 - Hyperlipidemia, unspecified Status: Acute Assessment and Plan: Continue statin therapy. (6) Hypertension associated with diabetes: Code(s): E11.59 - Type 2 diabetes mellitus with other circulatory complications; I15.2 - Hypertension secondary to endocrine disorders Status: Acute Assessment and Plan: Avoid hypotension if possible. Continue medical therapy as tolerated for supportive cardiomyopathy. Subjective Date/time seen: Date of service: 06/13/21 12:12 Follow-up for VT storm, nonischemic cardiomyopathy No recurrent VT overnight on IV amiodarone. Patient feeling much better and very appreciative. No chest pain, shortness of breath or palpitations. Intermittent ventricular pacing on telemetry. Hemodynamically stable. Echo being performed at bedside in ICU. Review of Systems Review of Systems: All systems reviewed & are unremarkable except as noted in HPI and below Constitutional: Constitutional: Reports as per HPI, Reports no additional constitutional complaints and Denies fatigue Eyes: Eyes: Reports as per HPI and Reports no additional eye complaints ENT: Reports system reviewed and no additional complaints, except as documented and Reports as per HPI Cardiovascular: Cardiovascular: Reports as per HPI, Reports no additional cardiovascular complaints, Denies chest pain, Denies diaphoresis, Denies pedal edema, Denies leg edema, Denies lightheadedness, Denies palpitations, Denies dyspnea and Denies dyspnea on exertion Respiratory: Respiratory: Reports as per HPI, Reports no additional respiratory complaints, Denies dyspnea and Denies dyspnea on exertion Gastrointestinal: Gastrointestinal: Reports as per HPI, Reports
[2021-06-13 12:53] LABS: Glucose Point of Care 129 mg/dl (65-105)
--- NOTE | 2021-06-13 16:27 | ECHO_ITS ---
Patient Info Name: Kenny Schneider Age: 76 years : 1945 Gender: Male Ht: 67 in Wt: 245 lbs BSA: 2.34 m2 HR: 55 bpm BP: 128 / 58 mmHg Heart Rhythm: Sinus Rhythm Technical Quality: Poor Exam Date: 06/13/2021 11:01 AM Exam Location: [facility] Pulmonary Exam Room: [facility] Patient Status: Inpatient Admit Date: 06/12/2021 Staff Ordering Physician: Partha Adorno MD Core Cutter: Alicia Tate RDCS Attending Provider: Dusty Jiménez MD Referring Physician: Tila VIERA; Exam Type: CA echo dop color flow w con Study Info Indications - vt nicm AICD Complete two-dimensional, color flow and Doppler transthoracic echocardiogram is performed with contrast to opacify the left ventricle and to improve the deliniation of the left ventricle endocardial borders. Contrast/Agitated Saline Contrast/Ag. Saline: Definity Amount: 2.00 ml Administered By: Ginger Coello RN Existing IV Access: Yes IV Access Condition: patent with no signs of infiltration Reason for Poor Study: poor echocardiographic windows Summary 1. Left ventricular chamber dimension is severely enlarged. 2. Left ventricular systolic function is severely reduced, estimated at 25-30%. 3. There is moderately increased left ventricular wall thickness. 4. Left ventricular septal wall motion is abnormal with septal motion related to bundle branch block. 5. There is no aortic valve stenosis. 6. There is trace tricuspid valve regurgitation. 7. No pulmonary hypertension, estimated pulmonary arterial systolic pressure is 26 mmHg. 8. There is trace mitral valve regurgitation. Left Ventricle Left ventricular chamber dimension is severely enlarged. Left ventricular systolic function is severely reduced, estimated at 25-30%. There is moderately increased left ventricular wall thickness. Left ventricular septal wall motion is abnormal with septal motion related to bundle branch block. The left ventricular diastolic function is grade I diastolic dysfunction. Right Ventricle Right ventricular chamber dimension is normal. Right ventricular systolic function is normal. Linear artifact in right ventricle suggestive of catheter(s), pacemaker lead(s), or ICD lead(s). Left Atria Left atrial chamber dimension is mildly enlarged. Right Atria Right atrial chamber dimension is normal. Aortic Valve The aortic valve is not well visualized. There is no aortic valve stenosis. There is trace aortic valve regurgitation. There is mild aortic valve calcification. Pulmonic Valve The pulmonic valve is not well visualized. Mitral Valve The mitral valve has normal leaflets. There is trace mitral valve regurgitation. The mitral valve annulus is mildly calcified. Tricuspid Valve The tricuspid valve leaflets are normal. There is trace tricuspid valve regurgitation. No pulmonary hypertension, estimated pulmonary arterial systolic pressure is 26 mmHg. Pericardium/Pleural The pericardium appears normal. There is small pericardial effusion. Inferior Vena Cava Normal inferior vena cava with >50% collapse upon inspiration consistent with normal right atrial pressure, 5 mmHg. Aorta The aortic root size at the sinus of Valsalva is normal. There is mild aortic atherosclerosis. Left Ventricular Outflow Tract Name Value Normal
[2021-06-13] MEDS: RIVAROXABAN 20 MG TABLET PO (17:32)
[2021-06-13] MEDS: AMIODARONE HCL 200 MG TABLET 400 MG PO (17:32)
[2021-06-13 17:36] LABS: Glucose Point of Care 150 mg/dl (65-105)
[2021-06-13 19:52] LABS: Glucose Point of Care 189 mg/dl (65-105)
[2021-06-14] VITALS (10 sets, daily range): BP systolic 113–126; BP diastolic 65–67; PULSE 50–69; RESP 17–20; TEMP 36.6–36.8; O2SAT 96–99
[2021-06-14 06:31] LABS: Alanine Aminotransferase 21 U/L (4-50); Albumin Level 3.7 g/dL (3.5-5.1); Alkaline Phosphatase 88 U/L (38-126); Anion Gap 8 mmol/L (8-16); Aspartate Amino Transferase 26 U/L (17-59); Blood Urea Nitrogen 21 mg/dL (9-20); Carbon Dioxide 23 mmol/L (22-30); Chloride 104 mmol/L (98-107); Estimated CRCL calculation 53 ml/min; Estimated Glomerular Filt Rate 59; Glucose 137 mg/dL (65-110); Magnesium 2.2 mg/dL (1.6-2.3); Phosphorus 3.3 mg/dL (2.5-4.5); Potassium 4.2 mmol/L (3.4-5.0); Sodium 135 mmol/L (137-145)
[2021-06-14] MEDS: METOPROLOL TARTRATE 25 MG TABLET PO (08:45)
[2021-06-14] MEDS: ATORVASTATIN 40 MG TABLET PO (08:45)
[2021-06-14] MEDS: AMIODARONE HCL 200 MG TABLET 400 MG PO ×2 (08:45→12:57)
[2021-06-14] MEDS: EMPAGLIFLOZIN 10 MG TABLET PO (08:45)
[2021-06-14] MEDS: TELMISARTAN 40 MG TABLET 80 MG PO (08:46)
[2021-06-14] MEDS: SPIRONOLACTONE 25 MG TABLET PO (08:46)
--- NOTE | 2021-06-14 10:57 | PM.DS ---
DS: Admitting Diagnosis Discharge Date 06/14/21 Admitting Diagnosis (1) Ventricular tachycardia: Code(s): I47.2 - Ventricular tachycardia Status: Acute Assessment and Plan: Recurrent ventricular tachycardia status post multiple ICD discharges today with failed ATP attempts. At the time my evaluation he has been in a sinus bradycardia for several hours after receiving boluses of amiodarone, lidocaine, magnesium, and metoprolol in the emergency department. His carvedilol is currently on hold and he is being started on metoprolol q.6 hours. He was seen evaluated by Dr. Ellis in the emergency room and at this time he is being admitted to the ICU for close observation. Should he continue to have ongoing issues, he will be transferred to [facility] for consultation with Dr. Farrar (art therapy specialist). (2) ICD (implantable cardioverter-defibrillator) discharge: Code(s): Z45.02 - Encounter for adjustment and management of automatic implantable cardiac defibrillator Status: Acute Assessment and Plan: As as detailed above. (3) Nonischemic cardiomyopathy: Code(s): I42.8 - Other cardiomyopathies Status: Acute Assessment and Plan: Ejection fraction was 25 to 30% on echocardiogram in March 2021. (4) Type 2 diabetes mellitus: Code(s): E11.9 - Type 2 diabetes mellitus without complications Status: Acute Assessment and Plan: Hemoglobin A1c today is 6.6%. Initiate sliding scale insulin, Accu-Cheks, and hypoglycemic protocol. (5) Hypertension: Code(s): I10 - Essential (primary) hypertension Status: Acute Assessment and Plan: Blood pressures were reviewed and they have been stable. 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 Status: Acute (2) Hypertension: Code(s): I10 - Essential (primary) hypertension Status: Acute (3) Type 2 diabetes mellitus: Code(s): E11.9 - Type 2 diabetes mellitus without complications Status: Acute (4) Nonischemic cardiomyopathy: Code(s): I42.8 - Other cardiomyopathies Status: Acute (5) Ventricular tachycardia: Code(s): I47.2 - Ventricular tachycardia Status: Acute (6) Hypertension associated with diabetes: Code(s): E11.59 - Type 2 diabetes mellitus with other circulatory complications; I15.2 - Hypertension secondary to endocrine disorders Status: Acute (7) Hyperlipidemia associated with type 2 diabetes mellitus: Code(s): E11.69 - Type 2 diabetes mellitus with other specified complication; E78.5 - Hyperlipidemia, unspecified Status: Acute (8) Nonischemic cardiomyopathy: Code(s): I42.8 - Other cardiomyopathies Status: Acute (9) ICD (implantable cardioverter-defibrillator) discharge: Code(s): Z45.02 - Encounter for adjustment and management of automatic implantable cardiac defibrillator Status: Acute (10) Ventricular tachycardia, incessant: Code(s): I47.2 - Ventricular tachycardia Status: Acute (11) Electrolyte abnormality: Code(s): E87.8 - Other disorders of electrolyte and fluid balance, not elsewhere classified Status: Acute DS: Summary Hospital Course Reason for hospitalization: AICD firing Hospital Course: 76 yo M presented to ER w c/o of AICD firing. He received numerous shocks by his device for monomorphic wide complex tachycardia consistent with ventricular tachycardia with heart rates 220-280 beats per minute. In the emergency department he received a total of 2 boluses of amiodarone, a 100 mg bolus of lidocaine, 5 mg IV push of metoprolol, and 2 mg of IV magnesium. Pt was admitted to ICU and placed on Amiodarone i
[2021-06-14 13:00] LABS: Glucose Point of Care 130 mg/dl (65-105)
--- NOTE | 2021-06-14 13:03 | PC.NURSE ---
Cardiopulmonary Rehab Services flyer was given to patient.
--- NOTE | 2021-06-14 13:31 | PM.PNCARD ---
Progress Note: A&P Assessment and Plan (1) Ventricular tachycardia, incessant: Code(s): I47.2 - Ventricular tachycardia Status: Acute Assessment and Plan: Recurrent wide complex tachycardia consistent with ventricular tachycardia status post multiple appropriate ICD discharge, failed ATP attempts. Severe LV systolic dysfunction EF 25-30% by echocardiogram March 2021, nonischemic etiology. Metoprolol reduced due to more frequent ventricular pacing by Critical Care which is reasonable. VT storm resolved with IV amiodarone, lidocaine bolus, beta-marisela therapy. Continue oral Amiodarone 400 mg t.i.d. for an additional 2 days, transition to 400 mg twice daily for 2 weeks, then 400 mg once daily. Change metoprolol tartrate to Toprol XL 25 mg once daily at discharge. He may take an additional 12.5 mg Toprol XL this evening at home as he received 25 mg metoprolol tartrate this morning while in the hospital. At this time, patient stable for discharge home and to call immediately or present back to the emergency department with recurrent VT with ICD discharge. Follow-up with Dr. Tolentino within 2 weeks. Further recommendations and/or EP referral will be deferred to Dr. Tolentino. Patient verbalized understanding of the recommendations and appreciated all that has been done for him. 2D echocardiogram personally reviewed EF 25% largely unchanged compared to prior study. Stable for discharge home per Cardiology perspective. Disposition per hospitalist service. (2) ICD (implantable cardioverter-defibrillator) discharge: Code(s): Z45.02 - Encounter for adjustment and management of automatic implantable cardiac defibrillator Status: Acute Assessment and Plan: As above, normal device function appropriate ICD defibrillations for generally monomorphic ventricular tachycardia. No recurrent episodes. (3) Nonischemic cardiomyopathy: Code(s): I42.8 - Other cardiomyopathies Status: Acute Assessment and Plan: Patient is not currently in significant clinical decompensated heart failure. EF 25%. (4) DM type 2 (diabetes mellitus, type 2): Qualifiers: Diabetes mellitus termite control representative insulin use: without fdc use Diabetes mellitus complication status: without complication Qualified Code(s): E11.9 - Type 2 diabetes mellitus without complications Code(s): E11.9 - Type 2 diabetes mellitus without complications Status: Acute Assessment and Plan: Per primary service. (5) Hyperlipidemia associated with type 2 diabetes mellitus: Code(s): E11.69 - Type 2 diabetes mellitus with other specified complication; E78.5 - Hyperlipidemia, unspecified Status: Acute Assessment and Plan: Continue statin therapy. (6) Hypertension associated with diabetes: Code(s): E11.59 - Type 2 diabetes mellitus with other circulatory complications; I15.2 - Hypertension secondary to endocrine disorders Status: Acute Assessment and Plan: Avoid hypotension if possible. Continue medical therapy as tolerated for supportive cardiomyopathy. Subjective Date/time seen: Date of service: 06/14/21 13:31 Follow-up for VT storm, nonischemic cardiomyopathy, multiple ICD shocks No recurrent sustained or nonsustained ventricular tachycardia since shortly after admission. Tolerating medical therapy well. Denies complaints of chest pain, shortness of breath, palpitations, dizziness or lightheadedness. Patient feels quite well and is looking forward to discharge today. Review of Systems Review of Systems: All systems reviewed & are unremarkable except as noted in HPI and below Constitutional: Constitutional: Reports as per HPI, Reports no additional constitutional complaints and Denies fatigue Eyes: Eyes: Reports as per HPI and Reports no additional eye complaints ENT: Reports system reviewed and no additional complaints, except as documented and Reports as pe
== END 2021-06-14 13:30 | disposition home or self-care (01) | DRG 309 ==
LOC: ANHED 12:49 → ANHICU 16:29
PROVIDERS: Emergency Medicine; Internal Medicine; Internal Medicine Cardiovascular Disease; Admitting Provider Internal Medicine; Emergency Provider General Practice; PCP Internal Medicine; Visit Provider Hospitalist
DX: I47.2 Ventricular tachycardia (principal); I42.8 Other cardiomyopathies; Z95.810 Presence of automatic (implantable) cardiac defibrillator; I48.92 Unspecified atrial flutter; E11.59 Type 2 diabetes mellitus with other circulatory complications; I15.2 Hypertension secondary to endocrine disorders; E11.36 Type 2 diabetes mellitus with diabetic cataract; H26.9 Unspecified cataract; E11.69 Type 2 diabetes mellitus with other specified complication; E78.5 Hyperlipidemia, unspecified; E55.9 Vitamin D deficiency, unspecified; E87.8 Other disorders of electrolyte and fluid balance, not elsewhere classified; Z79.01 Long term (current) use of anticoagulants; Z79.899 Other long term (current) drug therapy; Z86.74 Personal history of sudden cardiac arrest; Z87.891 Personal history of nicotine dependence
CPT/HCPCS: 36415; 71045; 80048; 80053; 82948; 83036; 83735; 84100; 84443; 84484; 85025; 85610; 85730; 93005; 96365; 96374; 96375; 96376; 99285; A9270; C8929; J0282; J2001; J3475; Q9957

== ENCOUNTER → 2021-06-22 03:29 | Outpatient (CLI) | payer MEDICARE, SELFPAY ==
[2021-06-22 18:10] LABS: SARS-CoV-2 RNA PCR Positive
== END ==
PROVIDERS: PCP Internal Medicine; Visit Provider Internal Medicine
DX: U07.1 COVID-19 (principal)
CPT/HCPCS: C9803; U0003; U0005

== ENCOUNTER 2021-06-26 09:46 | Outpatient (RCR) | payer MEDICARE, SELFPAY ==
[2021-06-26] MEDS: diphenhydrAMINE HCl CAP 25 MG CAPSULE PO (10:13)
[2021-06-26] MEDS: ACETAMINOPHEN 325 MG TABLET 650 MG PO (10:13)
[2021-06-26] MEDS: FAMOTIDINE 20 MG TABLET PO (10:14)
[2021-06-26 10:37] VITALS: BP 147/66; PULSE 77; RESP 18; TEMP 37.6; O2SAT 95
[2021-06-26 11:52] VITALS: BP 119/65
== END 2021-06-26 10:30 ==
LOC: AMCINF 09:46
PROVIDERS: Referring Provider Internal Medicine; Visit Provider Internal Medicine Hematology & Oncology
DX: Z23 Encounter for immunization (principal); U07.1 COVID-19; I10 Essential (primary) hypertension; E11.9 Type 2 diabetes mellitus without complications
CPT/HCPCS: A9270; M0245; Q0245

== ENCOUNTER → 2021-07-31 15:04 | Outpatient (REF) | payer MEDICARE, SELFPAY | LOC: ANHLAB 15:04 | PROVIDERS: Visit Provider Nurse Practitioner | DX: C44.1122 Basal cell carcinoma of skin of right lower eyelid, including canthus (principal) | CPT/HCPCS: 88305 ==

== ENCOUNTER 2021-08-24 08:12 | Outpatient (CLI) | payer MEDICARE, SELFPAY ==
[2021-08-24 09:09] LABS: Alanine Aminotransferase 22 U/L (4-50); Albumin Level 4.1 g/dL (3.5-5.1); Alkaline Phosphatase 100 U/L (38-126); Anion Gap 7 mmol/L (8-16); Aspartate Amino Transferase 26 U/L (17-59); Bilirubin,Total 0.8 mg/dL (0.2-1.3); Blood Urea Nitrogen 22 mg/dL (9-20); Calcium 9.5 mg/dL (8.4-10.2); Carbon Dioxide 28 mmol/L (22-30); Chloride 103 mmol/L (98-107); Cholesterol 152 mg/dL (0-200); Estimated Glomerular Filt Rate 45; Glucose 146 mg/dL (65-110); HDL Direct 37 mg/dL; Potassium 4.6 mmol/L (3.4-5.0); Sodium 138 mmol/L (137-145); Triglycerides 123 mg/dL (<150)
[2021-08-24 09:13] LABS: Basophils Absolute Auto 0.1 K/mm3 (0.0-0.1); Basophils Percent Auto 0.9 % (0.2-1.2); Eosinophils Absolute Auto 0.2 K/mm3 (0-0.3); Eosinophils Percent Auto 2.6 % (0-4.4); Hematocrit 46.6 % (42.0-52.0); Hemoglobin 14.9 g/dL (14.0-18.0); Immature Granulocyte Absolute 0.08 K/mm3 (0.00-0.031); Immature Granulocyte Percent A 1.2 % (0-0.5); Lymphocytes Percent Auto 13.8 % (18.3-44.2); Mean Corpuscular Hemoglobin 31.8 pg (26-34); Mean Corpuscular Volume 99.4 fl (80-100); Mean Platelet Volume 9.8 fl (7.4-10.4); Monocytes Absolute Auto 0.6 K/mm3 (0.1-0.6); Monocytes Percent Auto 9.7 % (2.6-8.5); Neutrophils Absolute Auto 4.7 K/mm3 (1.3-6.7); Neutrophils Percent Auto 71.8 % (45.5-73.1); Platelet Count Result 183 k/mm3 (150-375); Red Blood Count 4.69 M/mm3 (4.6-6.20); Red Cell Distribution Width 13.3 % (11.5-14.5); White Blood Count 6.5 K/mm3 (4.5-10.0)
[2021-08-24 09:20] LABS: LDL Cholesterol Direct 69 mg/dL
[2021-08-24 09:53] LABS: Free T4 Free Thyroxine 1.39 ng/mL (0.78-2.19)
[2021-08-24 12:12] LABS: Hemoglobin A1C 6.7 % (<5.7)
== END 2021-08-24 08:13 | disposition home or self-care (01) ==
PROVIDERS: PCP Internal Medicine; Visit Provider Internal Medicine
DX: E11.9 Type 2 diabetes mellitus without complications (principal); I10 Essential (primary) hypertension; E78.2 Mixed hyperlipidemia; Z51.81 Encounter for therapeutic drug level monitoring; Z79.899 Other long term (current) drug therapy; I25.10 Atherosclerotic heart disease of native coronary artery without angina pectoris
CPT/HCPCS: 36415; 80048; 80061; 80076; 83036; 84439; 84443; 85025

== ENCOUNTER → 2021-09-10 08:48 | Outpatient (REF) | payer MEDICARE, SELFPAY | LOC: ANHLAB 08:48 | PROVIDERS: PCP Internal Medicine; Visit Provider Nurse Practitioner | DX: C44.1122 Basal cell carcinoma of skin of right lower eyelid, including canthus (principal) | CPT/HCPCS: 88305; 88331 ==

== ENCOUNTER 2021-09-18 08:18 | Outpatient (CLI) | payer MEDICARE, SELFPAY ==
[2021-09-18 09:07] LABS: Anion Gap 6 mmol/L (8-16); Blood Urea Nitrogen 24 mg/dL (9-20); Calcium 9.5 mg/dL (8.4-10.2); Carbon Dioxide 25 mmol/L (22-30); Chloride 102 mmol/L (98-107); Estimated Glomerular Filt Rate 59; Glucose 160 mg/dL (65-110); Potassium 4.6 mmol/L (3.4-5.0); Sodium 133 mmol/L (137-145)
== END 2021-09-18 08:19 | disposition home or self-care (01) ==
LOC: ANHLAB 08:19
PROVIDERS: PCP Internal Medicine; Visit Provider Internal Medicine
DX: R79.89 Other specified abnormal findings of blood chemistry (principal)
CPT/HCPCS: 36415; 80048

== ENCOUNTER 2021-12-24 10:34 | Outpatient (CLI) | payer MEDICARE, SELFPAY ==
[2021-12-24 11:03] LABS: Basophils Absolute Auto 0.1 K/mm3 (0.0-0.1); Basophils Percent Auto 0.8 % (0.2-1.2); Eosinophils Absolute Auto 0.2 K/mm3 (0-0.3); Eosinophils Percent Auto 2.9 % (0-4.4); Hematocrit 45.6 % (42.0-52.0); Hemoglobin 14.3 g/dL (14.0-18.0); Immature Granulocyte Absolute 0.04 K/mm3 (0.00-0.031); Immature Granulocyte Percent A 0.6 % (0-0.5); Lymphocytes Absolute Auto 0.85 K/mm3 (0.9-3.2); Lymphocytes Percent Auto 12.9 % (18.3-44.2); Mean Corpuscular HGB Conc 31.4 g/dl (32-36); Mean Corpuscular Hemoglobin 30.7 pg (26-34); Mean Corpuscular Volume 97.9 fl (80-100); Mean Platelet Volume 9.1 fl (7.4-10.4); Monocytes Absolute Auto 0.6 K/mm3 (0.1-0.6); Monocytes Percent Auto 8.9 % (2.6-8.5); Neutrophils Absolute Auto 4.9 K/mm3 (1.3-6.7); Neutrophils Percent Auto 73.9 % (45.5-73.1); Platelet Count Result 160 k/mm3 (150-375); Red Blood Count 4.66 M/mm3 (4.6-6.20); Red Cell Distribution Width 13.2 % (11.5-14.5); White Blood Count 6.6 K/mm3 (4.5-10.0)
[2021-12-24 11:08] LABS: Anion Gap 6 mmol/L (8-16); Blood Urea Nitrogen 18 mg/dL (9-20); Calcium 8.9 mg/dL (8.4-10.2); Carbon Dioxide 29 mmol/L (22-30); Chloride 103 mmol/L (98-107); Cholesterol 143 mg/dL (0-200); Estimated Glomerular Filt Rate 45; Glucose 165 mg/dL (65-110); HDL Direct 38 mg/dL; Potassium 4.1 mmol/L (3.4-5.0); Sodium 138 mmol/L (137-145); Triglycerides 129 mg/dL (<150)
[2021-12-24 11:17] LABS: Hemoglobin A1C 6.4 % (<5.7)
[2021-12-24 11:19] LABS: LDL Cholesterol Direct 60 mg/dL
[2021-12-24 11:39] LABS: Creatinine Urine 75.1 mg/dL
[2021-12-24 11:42] LABS: MALB Creatinine Ratio 10.7 mg/g (0-30)
[2021-12-24 12:37] LABS: Free T4 Free Thyroxine 1.88 ng/mL (0.78-2.19); Vitamin D 25 Hydroxy 64.7 ng/mL
== END 2021-12-24 10:35 | disposition home or self-care (01) ==
LOC: ANHLAB 10:37
PROVIDERS: PCP Internal Medicine; Visit Provider Internal Medicine
DX: E78.2 Mixed hyperlipidemia (principal); Z51.81 Encounter for therapeutic drug level monitoring; Z79.899 Other long term (current) drug therapy; I10 Essential (primary) hypertension; Z13.29 Encounter for screening for other suspected endocrine disorder; E55.9 Vitamin D deficiency, unspecified; E11.9 Type 2 diabetes mellitus without complications
CPT/HCPCS: 36415; 80048; 80061; 82043; 82306; 83036; 84439; 84443; 85025

== ENCOUNTER 2022-02-21 10:05 | Outpatient (CLI) | payer MEDICARE, SELFPAY ==
--- NOTE | ~2022-02-21 | XR_ITS ---
XR sinus min 3V DATE: 02/21/2022 10:25 INDICATION: Unspecified disorders of nose and nasal sinuses TECHNIQUE: Lateral, Rocha, cabrera and submental vertical views COMPARISON: None FINDINGS: The paranasal sinuses and mastoid air cells appear normally developed and aerated. IMPRESSION: Normal paranasal sinuses Reviewed, dictated and finalized at location A. IMPRESSION: Normal paranasal sinuses
--- NOTE | ~2022-02-21 | XR_ITS ---
XR chest 2V 02/21/2022 10:25 Indication: Chronic cough Procedure: 2 view chest Comparison: Comparison to multiple prior studies sequentially, with oldest reviewed study dated 02/2021. Findings: Cardiomegaly. Pacemaker lead tip in the right ventricle. No significant effusion or pneumot horax. No edema. No focal pneumonia. No acute osseous abnormality. Impression: 1: No acute cardiopulmonary disease. 2: Cardiomegaly. Reviewed, dictated and finalized at location A. Impression: 1: No acute cardiopulmonary disease. 2: Cardiomegaly.
== END 2022-02-21 10:06 | disposition home or self-care (01) ==
LOC: ANHIMG 10:07
PROVIDERS: PCP Internal Medicine; Visit Provider Internal Medicine
DX: J34.89 Other specified disorders of nose and nasal sinuses (principal); R05.3 Chronic cough; I51.7 Cardiomegaly
CPT/HCPCS: 70220; 71046

== ENCOUNTER 2022-05-27 07:49 | Outpatient (CLI) | payer MEDICARE, SELFPAY ==
[2022-05-27 08:23] LABS: Basophils Percent Auto 0.6 % (0.2-1.2); Eosinophils Absolute Auto 0.2 K/mm3 (0-0.3); Eosinophils Percent Auto 3.8 % (0-4.4); Hematocrit 43.9 % (42.0-52.0); Hemoglobin 13.7 g/dL (14.0-18.0); Immature Granulocyte Absolute 0.04 K/mm3 (0.00-0.031); Immature Granulocyte Percent A 0.6 % (0-0.5); Lymphocytes Absolute Auto 0.67 K/mm3 (0.9-3.2); Lymphocytes Percent Auto 10.7 % (18.3-44.2); Mean Corpuscular HGB Conc 31.2 g/dl (32-36); Mean Corpuscular Hemoglobin 31.4 pg (26-34); Mean Corpuscular Volume 100.5 fl (80-100); Mean Platelet Volume 9.4 fl (7.4-10.4); Monocytes Absolute Auto 0.6 K/mm3 (0.1-0.6); Monocytes Percent Auto 8.8 % (2.6-8.5); Neutrophils Absolute Auto 4.7 K/mm3 (1.3-6.7); Neutrophils Percent Auto 75.5 % (45.5-73.1); Platelet Count Result 183 k/mm3 (150-375); Red Blood Count 4.37 M/mm3 (4.6-6.20); Red Cell Distribution Width 13.3 % (11.5-14.5); White Blood Count 6.2 K/mm3 (4.5-10.0)
[2022-05-27 08:34] LABS: Alanine Aminotransferase 30 U/L (6-50); Albumin Level 3.9 g/dL (3.5-5.1); Alkaline Phosphatase 116 U/L (38-126); Anion Gap 8 mmol/L (8-16); Aspartate Amino Transferase 31 U/L (17-59); Bilirubin,Total 0.6 mg/dL (0.2-1.3); Blood Urea Nitrogen 22 mg/dL (9-20); Calcium 9.2 mg/dL (8.4-10.2); Carbon Dioxide 27 mmol/L (22-30); Chloride 103 mmol/L (98-107); Cholesterol 129 mg/dL (0-200); Estimated Glomerular Filt Rate 45; Glucose 164 mg/dL (65-110); HDL Direct 38 mg/dL; Potassium 4.1 mmol/L (3.4-5.0); Sodium 138 mmol/L (137-145); Triglycerides 121 mg/dL (<150)
[2022-05-27 08:35] LABS: Hemoglobin A1C 6.3 % (<5.7)
[2022-05-27 08:40] LABS: Add Urine Microscopic? YES; Appearance Urine Cloudy (Clear); Bilirubin Urine Negative (Negative); Blood Urine Negative (Negative); Color Urine Yellow (Yellow); Glucose Urine UA 3+ mg/dL (Negative); Ketones Urine Negative (Negative); Leukocyte Esterase Ur Negative LEU/UL (Negative); Mucus Urine Rare /lpf; Nitrate Urine Negative (Negative); Protein Urine Negative (Negative); RBC Urine 0-2 /hpf (0-2); Specific Grav Ur 1.021 (1.001-1.035); Urobilinogen Urine Negative mg/dL (<2.0); WBC Urine 0-3 /hpf
[2022-05-27 08:46] LABS: LDL Cholesterol Direct 57 mg/dL
[2022-05-27 13:39] LABS: Free T4 Free Thyroxine 1.87 ng/mL (0.78-2.19); Vitamin D 25 Hydroxy 59.9 ng/mL
== END 2022-05-27 07:50 | disposition home or self-care (01) ==
PROVIDERS: PCP Internal Medicine; Visit Provider Internal Medicine
DX: E78.5 Hyperlipidemia, unspecified (principal)
CPT/HCPCS: 36415; 80053; 80061; 81001; 82306; 83036; 84439; 84443; 85025

== ENCOUNTER 2022-06-11 21:00 | Inpatient (IN) | payer MEDICARE, SELFPAY ==
[2022-06-11] VITALS (30 sets, daily range): BP systolic 75–130; BP diastolic 55–95; PULSE 45–83; RESP 16–96; TEMP 35.7–36.3; O2SAT 20–99
--- NOTE | ~2022-06-11 | XR_ITS ---
EXAMINATION: XR abdomen obstructive series DATE: 06/17/2022 08:46 INDICATION: Abdominal distention TECHNIQUE: Frontal supine and upright views of the abdomen were obtained. COMPARISON: 06/11/2022 FINDINGS: Nasogastric tube tip in proximal side port in the body of the stomach. Cholecystectomy clips in right upper quadrant. Small to moderate amount of gas and stool scattered throughout the normal caliber co sosa. No dilated gas-filled loops of bowel to suggest obstruction. No free intraperineal gas. Consolid ation in the left lower lung zone which could represent atelectasis, pneumonia, small pleural effusio n or some combination thereof. Small right pleural effusion. Tip of a cardiac pacemaker/defibrillator lead projects of the right ventricle. Temperature probe within a [place] catheter projecting over the expected location of the bladder. IMPRESSION: 1. No free intraperitoneal gas or dilated gas-filled loops of bowel to suggest obstruction. 2. Opacities in the left lower lung zone which could represent atelectasis, pneumonia, small to moder ate pleural effusion or some combination thereof. 3. Small right pleural effusion. Reviewed, dictated and finalized at location A. EMAN IMPRESSION: 1. No free intraperitoneal gas or dilated gas-filled loops of bowel to suggest obstruction. 2. Opacities in the left lower lung zone which could represent atelectasis, pne umonia, small to moderate pleural effusion or some combination thereof. 3. Small right pleural effusion.
--- NOTE | ~2022-06-11 | XR_ITS ---
XR chest PICC line 07/14/2022 13:42 Indication: PICC line placement Procedure: AP portable chest Comparison: Comparison to multiple prior studies sequentially, with oldest reviewed study dated 06/12. Findings: Right subclavian PICC line tip in the SVC. Tracheostomy tube present. Moderate cardiomegaly . Diffuse bilateral airspace disease is unchanged. Left pleural effusion. No pneumothorax. Impression: 1: Diffuse bilateral airspace disease may represent edema and/or pneumonia. 2: Moderate cardiomegaly. 3: Small left effusion. Reviewed, dictated and finalized at location A. RER STEEL HANDLING Impression: 1: Diffuse bilateral airspace disease may represent edema and/or pneumonia. 2: Moderate cardiomegaly. 3: Small left effusion.
--- NOTE | ~2022-06-11 | XR_ITS ---
EXAMINATION: XR chest 1V portable DATE: 06/17/2022 05:58 INDICATION: Acute respiratory failure TECHNIQUE: frontal view of the chest was obtained. COMPARISON: Chest radiograph dated 06/16/2022 FINDINGS: Endotracheal tube tip 4.3 cm above the angelita. Nasogastric tube extends into the stomach. Right inter nal jugular central venous catheter with distal tip at the caudal superior vena cava. Improvement in now mild residual airspace opacities in the right mid and lower lung zones. Persistent dense consolidation in the left mid and lower lung zone. Blunting at the lateral costophrenic angles consistent with small to moderate-sized left and small right pleural effusions. Cardiomegaly. Single lead cardiac pacemaker/defibrillator with lead tip at the right ventricle. IMPRESSION: 1. Unchanged small right pleural effusion with some improvement in opacities in the right mid and low er lung zones with appearance suggesting improvement in pulmonary edema. 2. Unchanged dense consolidation in the left mid to lower lung zone consistent with small to moderate right pleural effusion with associated atelectasis or pneumonia. 3. Cardiomegaly. Reviewed, dictated and finalized at location A. OARDING TEACHER IMPRESSION: 1. Unchanged small right pleural effusion with some improvement in opacities in the right mid and lower lung zones with appearance suggesting improvement in p ulmonary edema. 2. Unchanged dense consolidation in the left mid to lower lung zone consistent with small to moderate right pleural effusion with associated atelectasis or pn eumonia. 3. Cardiomegaly.
--- NOTE | ~2022-06-11 | XR_ITS ---
XR chest 1V portable DATE: 07/05/2022 05:59 INDICATION: Respiratory failure TECHNIQUE: Portable AP chest on 07/05/2022 at 0525 hours COMPARISON: 07/04/2022 portable AP chest at 0515 hours FINDINGS: Cardiomegaly, pulmonary vascular congestion and redistribution and bilateral pulmonary infi ltrates persist. The findings suggest congestive heart failure and pulmonary edema. Bilateral central and lower lung infiltrates are noted, greatest in the left lower lobe. Pneumonia is not excluded. Tracheostomy tube is noted. Left-sided transvenous pacemaker/defibrillator with lead overlying right ventricular apex. Right internal jugular central venous catheter tip overlies the superior vena cava. IMPRESSION: Congestive heart failure and probable pulmonary edema; cannot exclude pneumonia especiall y in left lower lobe Reviewed, dictated and finalized at location A. TS EQUIPMENT RACKER IMPRESSION: Congestive heart failure and probable pulmonary edema; cannot exclu de pneumonia especially in left lower lobe
--- NOTE | ~2022-06-11 | XR_ITS ---
EXAMINATION: XR chest 1V portable DATE: 06/14/2022 05:53 INDICATION: Acute respiratory failure. TECHNIQUE: A single frontal view of the chest was obtained. COMPARISON: Chest single view 06/13/2022 FINDINGS: The lung volumes are small. There are mild airspace opacities in the mid and lower lung zon es. No pleural effusion or pneumothorax. Cardiomegaly is noted. The endotracheal tube tip is 3.9 cm a jose alberto the angelita. The nasogastric tube tip is in the stomach. A right internal jugular central venous catheter is seen with tip at the superior cavoatrial junction. There is a left chest pacer/defibrilla tor with lead in right ventricle. IMPRESSION: 1. Stable small lung volumes with airspace opacities in the mid and lower lung zones, consistent with atelectasis versus pneumonia. 2. Cardiomegaly. Reviewed, dictated and finalized at location A.
--- NOTE | ~2022-06-11 | XR_ITS ---
EXAMINATION: XR chest 1V portable DATE: 07/08/2022 10:00 INDICATION: Congestive heart failure. TECHNIQUE: A single frontal view of the chest was obtained. COMPARISON: Chest single view 07/06/2022, chest CT 06/11/2022 FINDINGS: There are airspace opacities in all lung zones bilaterally with a perihilar and left basila r predominance. There is prominent extrapleural fat bilaterally. No definite pleural effusion. No pne umothorax. Cardiomegaly is noted. There is a tracheostomy tube in expected position. There is a left chest pacer/defibrillator with lead in right ventricle. IMPRESSION: 1. Diffuse lung disease with mild improvement on the right, consistent with pulmonary edema versus pn eumonia. 2. Cardiomegaly. Reviewed, dictated and finalized at location A. TEACHER IMPRESSION: 1. Diffuse lung disease with mild improvement on the right, consistent with pul monary edema versus pneumonia. 2. Cardiomegaly.
--- NOTE | ~2022-06-11 | XR_ITS ---
EXAMINATION: XR abdomen NG/feed tube insert DATE: 07/21/2022 10:17 INDICATION: Nasogastric tube placement. TECHNIQUE: An upright view of the abdomen on 2 radiographs was obtained. COMPARISON: CT abdomen and pelvis 07/16/2022 FINDINGS: The lower abdomen is excluded. The nasogastric tube tip is in the stomach. There is a left chest pacer with lead in right ventricle. Surgical clips in the right upper quadrant are likely from cholecystectomy. IMPRESSION: 1. Nasogastric tube tip in the stomach. Reviewed, dictated and finalized at location A. ECT SPECIALIST
--- NOTE | ~2022-06-11 | XR_ITS ---
EXAMINATION: XR chest 1V portable DATE: 06/20/2022 06:10 INDICATION: Respiratory failure TECHNIQUE: frontal view of the chest was obtained. COMPARISON: Chest radiograph dated 06/19/2022 FINDINGS: Endotracheal tube tip 2.7 cm above the angelita. The cardiomediastinal silhouette is normal. Visualized bones and soft tissues are unremarkable. Nasogastric tube extends below the left hemidiaphragm with distal tip collimated off the study. Right internal jugular central venous catheter with distal tip near the superior cavoatrial junction. Decrease in the hazy airspace opacities throughout the right hemithorax consistent with decreasing sm all right pleural effusion. There is also been some interval improvement in the bilateral perihilar o pacities which likely represented pulmonary edema as well as of the retrocardiac consolidation in the left lower lung zone consistent with a small to moderate left pleural effusion with associated atele ctasis and/or pneumonia. Cardiomegaly. Single lead cardiac pacemaker/defibrillator with tip projectin g over the right ventricle. IMPRESSION: 1. Interval improvement in prior perihilar pulmonary edema and decrease in small right and small-to-m oderate left pleural effusions. 2. Decreasing consolidation in the left lower lung zone which could represent associated atelectasis or pneumonia. 3. Cardiomegaly. Reviewed, dictated and finalized at location A. ECTOR ALUMINUM BOAT IMPRESSION: 1. Interval improvement in prior perihilar pulmonary edema and decrease in smal l right and [id number] left pleural effusions. 2. Decreasing consolidation in the left lower lung zone which could represent a ssociated atelectasis or pneumonia. 3. Cardiomegaly.
--- NOTE | ~2022-06-11 | XR_ITS ---
EXAMINATION: XR chest 1V portable DATE: 06/19/2022 06:06 INDICATION: Respiratory failure. TECHNIQUE: frontal view of the chest was obtained. COMPARISON: Chest radiograph dated 06/18/2022 FINDINGS: Endotracheal tube tip 4.0 cm above the angelita. Nasogastric tube extends below the left hemidiaphragm with distal tip collimated off the study. Right internal jugular central venous catheter with distal tip near the superior cavoatrial junction. Increasing basilar predominant hazy opacities throughout the right hemithorax with additional increas ing more focal right perihilar groundglass opacities. No significant change in more dense opacities i n the left perihilar region and left lower lung zone. No pneumothorax. Cardiomegaly. Single lead card iac pacemaker/defibrillator with lead tip projecting over the right ventricle. IMPRESSION: 1. Worsening bilateral lung disease which could represent pulmonary edema, pneumonia, atelectasis or most likely some combination thereof superimposed over increasing small right and unchanged small to moderate left pleural effusions 2. Cardiomegaly. Reviewed, dictated and finalized at location A. RENCE AND INSTRUCTION LIBRARIAN IMPRESSION: 1. Worsening bilateral lung disease which could represent pulmonary edema, pneu monia, atelectasis or most likely some combination thereof superimposed over in creasing small right and unchanged small to moderate left pleural effusions 2. Cardiomegaly.
--- NOTE | ~2022-06-11 | XR_ITS ---
XR chest 1V portable DATE: 07/15/2022 07:56 INDICATION: Worsening respiratory status TECHNIQUE: Portable upright AP view on 07/15/2022 at 0751 hours COMPARISON: 07/2022 portable AP chest at 1337 hours FINDINGS: Tracheostomy tube. Left sided transvenous pacemaker defibrillator device with IV overlying right ventricular apex. Cardiomegaly. There is diminished pulmonary vascular congestion and bilateral pulmonary infiltrates s martin 07/2022 consistent with mild interval improvement of congestive changes. Small right pleural ef fusion. No pneumothorax. IMPRESSION: Congestive heart failure, mildly improved since 07/2022 Reviewed, dictated and finalized at location B. Y DRIVER
--- NOTE | ~2022-06-11 | XR_ITS ---
XR chest 1V portable DATE: 06/22/2022 18:25 INDICATION: Wheezing. Fracture. TECHNIQUE: Portable AP chest on 06/22/2022 1820 hours COMPARISON: 06/22/2022 portable AP chest at 0530 hours FINDINGS: There is cardiomegaly, pulmonary vascular congestion and redistribution. There are bilatera l primarily central and lower lung zone infiltrates suggesting pulmonary edema. Mild pleural effusion s. Left sided transvenous pacemaker device with lead overlying right ventricle. ET and NG tubes appear in satisfactory position. IMPRESSION: Congestive heart failure and pulmonary edema, mildly increased since earlier today Reviewed, dictated and finalized at location A. INE SHOP APPRENTICE IMPRESSION: Congestive heart failure and pulmonary edema, mildly increased sinc e earlier today
--- NOTE | ~2022-06-11 | XR_ITS ---
EXAMINATION: XR chest ET placement Exam Date/Time: 06/11/2022 21:20 CDT HISTORY: ET TUBE Comparison: 02/21/2022. RESULT: Lines, tubes, and devices: Endotracheal tube terminating 5 cm above the angelita in image #1 and 3 cm above the angelita in image #2. Left chest pacer with intact lead. Lungs and pleura: Lordotic positioning. Significant hypoinflation with crowding. Patchy bilateral ai rspace and diffuse reticular opacities. Cardiomediastinal silhouette: Stable severe cardiomegaly. Other: No acute osseous or upper abdominal finding. IMPRESSION: Endotracheal tube terminating 3 cm above the angelita in the final image. Pulmonary opacities may refle ct interstitial and alveolar edema. Reviewed, dictated [facility] final[facility] at [facility] IMPRESSION: Endotracheal tube terminating 3 cm above the angelita in the final image. Pulmona ry opacities may reflect interstitial and alveolar edema.
--- NOTE | ~2022-06-11 | XR_ITS ---
EXAMINATION: XR chest 1V portable DATE: 07/02/2022 05:51 INDICATION: Respiratory failure. TECHNIQUE: A single frontal view of the chest was obtained. COMPARISON: Chest single view 07/01/2022 FINDINGS: There are airspace opacities in the perihilar regions and at left lung base. There are smal l pleural effusions. No pneumothorax. Cardiomegaly is noted. There is a tracheostomy tube in expected position. There is a left chest pacer/defibrillator with lead in right ventricle. A right internal j ugular central venous catheter is seen with tip at the superior cavoatrial junction. IMPRESSION: 1. Airspace opacities in the perihilar regions and at left lung base with improvement on the right, c onsistent with atelectasis versus pneumonia. 2. Stable small pleural effusions. 3. Cardiomegaly. Reviewed, dictated and finalized at location A. NEYMAN PIPEFITTER IMPRESSION: 1. Airspace opacities in the perihilar regions and at left lung base with impro vement on the right, consistent with atelectasis versus pneumonia. 2. Stable small pleural effusions. 3. Cardiomegaly.
--- NOTE | ~2022-06-11 | XR_ITS ---
EXAMINATION: XR chest 1V portable DATE: 06/12/2022 05:44 INDICATION: Intubated. TECHNIQUE: A single frontal view of the chest was obtained. COMPARISON: Chest single view 06/11/2022, chest CT 06/11/2022 FINDINGS: There are mild airspace opacities in all lung zones bilaterally. No pleural effusion or pne umothorax. Cardiomegaly is noted. The endotracheal tube tip is 4.9 cm above the angelita. There is a le ft chest pacer/defibrillator with lead in right ventricle. The nasogastric tube tip is beyond the inf erior margin of the radiograph, but at least to the stomach. IMPRESSION: 1. Mild airspace opacities in the lungs, likely atelectasis. 2. Cardiomegaly. Reviewed, dictated and finalized at location A.
--- NOTE | ~2022-06-11 | XR_ITS ---
EXAMINATION: XR chest 1V portable DATE: 07/18/2022 06:17 INDICATION: Respiratory failure TECHNIQUE: frontal view of the chest was obtained. COMPARISON: Chest radiograph dated 07/15/2022 FINDINGS: Tracheostomy tube at the thoracic inlet. Right upper extremity peripherally inserted central venous c atheter (PICC) distal tip of which is indistinct, likely at the right brachiocephalic vein. Pulmonary vascular congestion and mild increased interstitial pattern with perihilar predominance con sistent with mild pulmonary edema. Gradient of hazy basilar predominant airspace opacities throughout both lungs with more dense retrocardiac consolidation at the left lung base and blunting at the righ t costophrenic angle consistent with small bilateral posterior layering pleural effusions and associa rodolfo atelectasis and/or pneumonia. Cardiomegaly. Single lead cardiac pacemaker/defibrillator with lead tip at the right ventricle. IMPRESSION: 1. Interval development of mild pulmonary edema. 2. New small bilateral pleural effusions with associated basilar atelectasis and/or pneumonia. 3. Cardiomegaly. Reviewed, dictated and finalized at location A. WEBSPHERE DEVELOPER IMPRESSION: 1. Interval development of mild pulmonary edema. 2. New small bilateral pleural effusions with associated basilar atelectasis an d/or pneumonia. 3. Cardiomegaly.
--- NOTE | ~2022-06-11 | XR_ITS ---
XR chest 1V portable 07/14/2022 06:41 Indication: Respiratory failure Procedure: AP portable chest Comparison: Comparison to multiple prior studies sequentially, with oldest reviewed study dated 06/12. Findings: Stable pacemaker lead. Cardiomegaly. Persistent diffuse bilateral airspace disease with low lung volumes. No pneumothorax. Impression: 1: Persistent diffuse bilateral airspace disease which may represent edema and/or pneumonia. Reviewed, dictated and finalized at location A. DER'S LABOURER Impression: 1: Persistent diffuse bilateral airspace disease which may represent edema and/ or pneumonia.
--- NOTE | ~2022-06-11 | US_ITS ---
EXAMINATION: US venous doppler [facility] DATE: 07/01/2022 10:00 INDICATION: Lower limb swelling. TECHNIQUE: Grayscale ultrasound images without and with compression and Doppler ultrasound images of the bilateral lower extremity veins were obtained. COMPARISON: None. FINDINGS: The visualized portions of right common femoral vein, profunda (deep) femoral vein, femoral vein, pop liteal vein, peroneal veins, and greater saphenous vein outflow are patent. There is thrombus in a ri ght posterior tibial vein. The visualized portions of left common femoral vein, profunda femoral vein, femoral vein, popliteal v ein, and greater saphenous vein outflow are patent. There is thrombus in left posterior tibial, peron eal, and soleus veins. IMPRESSION: 1. Deep vein thrombosis in the calves. Reviewed, dictated and finalized at location A. R BANDER HAND
--- NOTE | ~2022-06-11 | XR_ITS ---
EXAMINATION: XR chest port-a-cath/central DATE: 06/12/2022 09:29 INDICATION: Central line placement. TECHNIQUE: A single frontal view of the chest was obtained. COMPARISON: Chest single view at 5:16 AM FINDINGS: There are airspace opacities in the lower lung zones. No pleural effusion or pneumothorax. Cardiomegaly is noted. The endotracheal tube tip is 5.3 cm above the angelita. A right internal jugular central venous catheter is seen with tip at the superior cavoatrial junction. There is a left chest pacer/defibrillator with lead in right ventricle. IMPRESSION: 1. Stable airspace opacities in the lower lung zones, consistent with atelectasis versus pneumonia. 2. Cardiomegaly. Reviewed, dictated and finalized at location A. IMPRESSION: 1. Stable airspace opacities in the lower lung zones, consistent with atelectas is versus pneumonia. 2. Cardiomegaly.
--- NOTE | ~2022-06-11 | XR_ITS ---
EXAMINATION: XR chest 1V portable DATE: 06/24/2022 05:57 INDICATION: Respiratory failure. TECHNIQUE: A single frontal view of the chest was obtained. COMPARISON: Chest single view 06/23/2022, chest CT 06/11/2022 FINDINGS: There are airspace opacities in the mid and lower lung zones. There are small pleural effus ions. No pneumothorax. There is prominent extrapleural fat on the right. Cardiomegaly is noted. The e ndotracheal tube tip is 3.9 cm above the angelita. The nasogastric tube tip is in the stomach. There is a left chest pacer/defibrillator with lead in right ventricle. IMPRESSION: 1. Stable airspace opacities in the mid and lower lung zones, consistent with atelectasis versus pneu monia. 2. Stable small pleural effusions. 3. Cardiomegaly. Reviewed, dictated and finalized at location A. WIRE ALINER IMPRESSION: 1. Stable airspace opacities in the mid and lower lung zones, consistent with a telectasis versus pneumonia. 2. Stable small pleural effusions. 3. Cardiomegaly.
--- NOTE | ~2022-06-11 | US_ITS ---
EXAMINATION: US venous doppler [facility] DATE: 06/29/2022 10:59 INDICATION: Upper limb swelling. Respiratory failure. TECHNIQUE: Grayscale images without and with compression and Doppler images of the bilateral upper ex tremity veins were obtained. COMPARISON: None. FINDINGS: The right internal jugular vein, subclavian vein, axillary vein, brachial vein, basilic vein, cephali c vein, radial vein, and ulnar vein are patent. The left internal jugular vein, subclavian vein, axillary vein, brachial vein, basilic vein, cephalic vein, radial vein, and ulnar vein are patent. IMPRESSION: 1. Patent bilateral upper extremity veins. No evidence of venous thrombosis. Reviewed, dictated and finalized at location A. DIRECTOR
--- NOTE | ~2022-06-11 | CT_ITS ---
EXAMINATION: CT brain wo con DATE: 06/11/2022 23:50 INDICATION: Altered mental status. TECHNIQUE: Computed tomography (CT) of the head was performed without intravenous contrast. The mA wa s adjusted according to patient size. Iterative reconstruction technique was employed. The dose-lengt h product was 681.00 mGy-cm. COMPARISON: None FINDINGS: There are scattered areas of low attenuation in the cerebral white matter. There is no intr acranial hemorrhage, acute infarction, or abnormal intracranial mass lesion. The ventricles are filomena l in size. There are likely changes of ocular lens replacement surgeries. There is mild mucosal thick ening in the paranasal sinuses. The mastoid air cells are normal. IMPRESSION: 1. Mild nonspecific cerebral white matter disease, which likely represents chronic small vessel ische tessa disease. Reviewed, dictated and finalized at location A. IMPRESSION: 1. Mild nonspecific cerebral white matter disease, which likely represents payroll consultant migdalia small vessel ischemic disease.
--- NOTE | ~2022-06-11 | XR_ITS ---
XR chest 1V portable DATE: 06/16/2022 06:28 INDICATION: Acute respiratory failure TECHNIQUE: Portable AP chest on 06/16/2022 at 0506 COMPARISON: 06/15/2022 portable AP chest at 0536 hours FINDINGS: Cardiomegaly, prominent pulmonary vascular congestion and redistribution and bilateral pulm onary infiltrates likely due to pulmonary edema. The congestion or infiltrates are increased substant ially since 06/15/2000 Mild blunting of costophrenic angle suggests minimal pleural effusions. Left transvenous pacemaker de vice with lead overlying right apex. Right internal to suggest venous catheter tip situated near cavoatrial junction. ET tube is approxima tely 5.3 cm above angelita. NG tube in stomach. IMPRESSION: Essentially increased pulmonary vascular congestion bilateral pulmonary infiltrates consi stent with increased congestive heart failure and pulmonary edema since 06/15 Reviewed, dictated and finalized at location A. PAD PLATE FILLER IMPRESSION: Essentially increased pulmonary vascular congestion bilateral pulmo nary infiltrates consistent with increased congestive heart failure and pulmona ry edema since 06/15
--- NOTE | ~2022-06-11 | XR_ITS ---
EXAMINATION: XR chest 1V portable DATE: 06/26/2022 06:16 INDICATION: Respiratory failure. TECHNIQUE: A single frontal view of the chest was obtained on 2 radiographs. COMPARISON: Chest single view 06/25/2022 FINDINGS: The patient is rotated to his left. There are small pleural effusions. There is a diffuse i nterstitial pattern, consistent mild pulmonary edema. There are airspace opacities in left mid and lo wer lung zones. No pneumothorax. Cardiomegaly is noted. The endotracheal tube tip is 2.9 cm above the angelita. There is a left chest pacer/defibrillator with lead in right ventricle. The nasogastric tube tip is beyond the inferior margin of the radiograph, but at least to the stomach. A right internal j ugular central venous catheter is seen with tip at the superior cavoatrial junction. IMPRESSION: 1. Stable airspace opacities in left mid and lower lung zones, consistent with atelectasis versus pne umonia. 2. Mild pulmonary edema. 3. Stable small pleural effusions. 4. Cardiomegaly. Reviewed, dictated and finalized at location A. ONER CLASSIFICATION INTERVIEWER IMPRESSION: 1. Stable airspace opacities in left mid and lower lung zones, consistent with atelectasis versus pneumonia. 2. Mild pulmonary edema. 3. Stable small pleural effusions. 4. Cardiomegaly.
--- NOTE | ~2022-06-11 | XR_ITS ---
EXAMINATION: XR chest 1V portable DATE: 06/28/2022 05:57 INDICATION: Respiratory failure. TECHNIQUE: A single frontal view of the chest was obtained. COMPARISON: Chest single view 06/27/2022 FINDINGS: There are airspace opacities in the perihilar regions and left lung base. There are small p leural effusions. No pneumothorax. Cardiomegaly is noted. The endotracheal tube tip is 4.5 cm above t he angelita. There is a left chest pacer/defibrillator with lead in right ventricle. A right internal j ugular central venous catheter is seen with tip at the superior cavoatrial junction. IMPRESSION: 1. Airspace opacities in the perihilar regions and left lung base with improvement on the right, cons istent with pulmonary edema versus pneumonia. 2. Stable small pleural effusions. 3. Cardiomegaly. Reviewed, dictated and finalized at location A. ITY IMPROVEMENT CONSULTANT IMPRESSION: 1. Airspace opacities in the perihilar regions and left lung base with improvem ent on the right, consistent with pulmonary edema versus pneumonia. 2. Stable small pleural effusions. 3. Cardiomegaly.
--- NOTE | ~2022-06-11 | US_ITS ---
EXAMINATION: US renal BI DATE: 07/15/2022 11:03 INDICATION: Acute kidney injury. Assess for hydronephrosis. TECHNIQUE: Multiple ultrasound grayscale images of the kidneys were obtained. COMPARISON: None. FINDINGS: The right kidney measures 14.8 x 8.9 x 7.4 cm. The left kidney measures 13.6 x 7.0 x 6.5 cm. The kidn eys demonstrate normal echogenicity. There are bilateral simple appearing anechoic cysts measuring up to 5.1 cm in maximal diameter at the lower pole of the right kidney and 4.9 cm the lower pole of the left kidney. There is a 4.8 x 4.6 x 4.6 cm exophytic complex, likely mixed solid and cystic mass at the the mid to lower pole of the right kidney which is centrally hypoechoic with thickened more echog enic peripheral wall and multiple hyperechoic and shadowing calcifications both peripherally and cent rally. There is no hydronephrosis in either kidney. No stones identified. The bladder is partially d ecompressed due to the presence of a partially visualized Newberry catheter which limits evaluation of t he bladder. IMPRESSION: 1. 4.8 cm exophytic complex appearing right renal mass which is concerning for malignancy. Would rec ommend further evaluation with pre and postcontrast MRI or CT. 2. No hydronephrosis. Reviewed, dictated and finalized at location A. T BOSS IMPRESSION: 1. 4.8 cm exophytic complex appearing right renal mass which is concerning for malignancy. Would recommend further evaluation with pre and postcontrast MRI o r CT. 2. No hydronephrosis.
--- NOTE | ~2022-06-11 | XR_ITS ---
EXAMINATION: XR chest 1V portable INDICATION: Respiratory failure TECHNIQUE: Portable AP chest at 0530 hours COMPARISON: 06/21/2022 FINDINGS: The endotracheal tube ends approximately 3.5 cm above the angelita. The nasogastric tube is f ollowed as far as the stomach. Its tip is beyond the inferior margin of the radiograph. A right inter nal jugular catheter ends with its tip in the midsuperior vena cava. Cardiomegaly is noted. Small, st able pleural effusions are present, left greater than right. No pneumothorax is identified. Cardiomeg luiza is noted. There are diffuse interstitial pattern persists but has improved. There are unchanged l eft basilar airspace opacities. A single lead pacemaker of the left chest wall ends with its lead pro jecting in the right ventricle. IMPRESSION: 1. Cardiomegaly with improving pulmonary edema. 2. Small pleural effusions, stable. 3. Stable left basilar airspace opacity, consistent with atelectasis versus pneumonia. Reviewed, dictated and finalized at location A. HAND IMPRESSION: 1. Cardiomegaly with improving pulmonary edema. 2. Small pleural effusions, stable. 3. Stable left basilar airspace opacity, consistent with atelectasis versus pne umonia.
--- NOTE | ~2022-06-11 | XR_ITS ---
EXAMINATION: XR chest 1V portable DATE: 06/21/2022 05:09 INDICATION: Respiratory failure TECHNIQUE: frontal view of the chest was obtained. COMPARISON: Chest radiograph dated 06/20/2022 FINDINGS: Endotracheal tube tip 2.4 cm above the angelita. Nasogastric tube extends below the left hemidiaphragm with distal tip collimated off the study. Right internal jugular central venous catheter with distal tip near the superior cavoatrial junction. Patient is rotated towards the left. Slight increase in perihilar groundglass opacities consistent wi th increasing pulmonary edema. Increasing retrocardiac consolidation the left mid to lower lung zone consistent with enlarging small to moderate left pleural effusion and associated atelectasis and/or p neumonia. There has also been slight increase in a small right pleural effusion. No pneumothorax. Car diomegaly. Single lead cardiac pacemaker/defibrillator with lead tip projecting over the right ventri wilmer. IMPRESSION: 1. Increasing mild perihilar pulmonary edema. 2. Increasing small right and small to moderate left pleural effusions. 3. Consolidation in the left lower lung zone consistent with atelectasis and/or pneumonia. 4. Cardiomegaly. Reviewed, dictated and finalized at location A. CUTTER
--- NOTE | ~2022-06-11 | XR_ITS ---
EXAMINATION: XR chest 1V portable DATE: 07/01/2022 05:39 INDICATION: Respiratory failure. TECHNIQUE: A single frontal view of the chest was obtained. COMPARISON: Chest single view 06/29/2022, chest CT 06/11/2022 FINDINGS: Sensitivity is decreased by obesity. There are airspace opacities in the mid and lower lung zones, right worse than left. There are small pleural effusions. No pneumothorax. Cardiomegaly is no rodolfo. The endotracheal tube tip is 4.5 cm above the angelita. The nasogastric tube tip is beyond the inf erior margin of the radiograph, but at least to the stomach. There is a left chest pacer/defibrillato r with lead in right ventricle. IMPRESSION: 1. Stable airspace opacities in the mid and lower lung zones, right worse than left, consistent with atelectasis versus pneumonia. 2. Stable small pleural effusions. 3. Cardiomegaly. Reviewed, dictated and finalized at location A. ER INSPECTOR
--- NOTE | ~2022-06-11 | XR_ITS ---
EXAMINATION: XR chest 1V portable DATE: 07/03/2022 06:12 INDICATION: Respiratory failure. TECHNIQUE: A single frontal view of the chest was obtained. COMPARISON: Chest single view 07/02/2022, chest CT 06/11/2022 FINDINGS: There are airspace opacities in the perihilar regions and lower lung zones. No pleural effu adi or pneumothorax. Cardiomegaly is noted. There is a left chest pacer/defibrillator with lead in r ight ventricle. A tracheostomy tube is noted. A right internal jugular central venous catheter is see n with tip at the superior cavoatrial junction. IMPRESSION: 1. Airspace opacities in the perihilar regions and lower lung zones, consistent with atelectasis vers us pneumonia versus mild pulmonary edema. 2. Cardiomegaly. Reviewed, dictated and finalized at location A. THREADER IMPRESSION: 1. Airspace opacities in the perihilar regions and lower lung zones, consistent with atelectasis versus pneumonia versus mild pulmonary edema. 2. Cardiomegaly.
--- NOTE | ~2022-06-11 | XR_ITS ---
EXAMINATION: XR chest 1V portable DATE: 06/25/2022 05:49 INDICATION: Respiratory failure. TECHNIQUE: A single frontal view of the chest was obtained. COMPARISON: Chest single view 06/24/2022, chest CT 06/11/2022 FINDINGS: There are airspace opacities in the perihilar regions and lower lung zones. There are small pleural effusions. No pneumothorax. Cardiomegaly is noted. The endotracheal tube tip is 2.7 cm above the angelita. There is a left chest pacer/defibrillator with lead in right ventricle. The nasogastric tube tip is in the stomach. A right internal jugular central venous catheter is seen with tip at the superior cavoatrial junction. IMPRESSION: 1. Stable airspace opacities in the perihilar regions and lower lung zones, consistent with atelectas is versus pulmonary edema versus pneumonia. 2. Stable small pleural effusions. 3. Cardiomegaly. Reviewed, dictated and finalized at location A. RDER HELPER GRAVITY PROSPECTING IMPRESSION: 1. Stable airspace opacities in the perihilar regions and lower lung zones, con sistent with atelectasis versus pulmonary edema versus pneumonia. 2. Stable small pleural effusions. 3. Cardiomegaly.
--- NOTE | ~2022-06-11 | XR_ITS ---
EXAMINATION: XR chest 1V portable DATE: 06/29/2022 06:12 INDICATION: Respiratory failure TECHNIQUE: frontal view of the chest was obtained. COMPARISON: Chest radiograph dated 06/28/2022 FINDINGS: Endotracheal tube tip 4.8 cm above the angelita. Nasogastric tube extends into the stomach. Right inter nal jugular central venous catheter with distal tip near the superior cavoatrial junction. Persistent bilateral perihilar opacities with some improvement in opacities at the left lower lung zo ne. Small bilateral pleural effusions. No pneumothorax. Cardiomegaly. Single lead cardiac pacemaker/A ICD seen with the tip in the right ventricle. IMPRESSION: 1. Unchanged bilateral perihilar opacities and some improvement in opacities in the left lower lung z one which could represent pulmonary edema or pneumonia. 2. Unchanged small bilateral pleural effusions. 3. Cardiomegaly. Reviewed, dictated and finalized at location A. R VEHICLE DISPATCHER IMPRESSION: 1. Unchanged bilateral perihilar opacities and some improvement in opacities in the left lower lung zone which could represent pulmonary edema or pneumonia. 2. Unchanged small bilateral pleural effusions. 3. Cardiomegaly.
--- NOTE | ~2022-06-11 | XR_ITS ---
EXAMINATION: XR abdomen NG/feed tube insert DATE: 06/12/2022 00:00 INDICATION: Nasogastric tube placement. TECHNIQUE: A supine view of the abdomen was obtained. COMPARISON: Chest CT 06/11/2022 FINDINGS: The lower abdomen is excluded. There are no dilated loops of bowel. Surgical clips in the r ight upper quadrant are likely from cholecystectomy. The nasogastric tube tip is in the stomach. IMPRESSION: 1. Nasogastric tube tip in the stomach. Reviewed, dictated and finalized at location A.
--- NOTE | ~2022-06-11 | XR_ITS ---
XR chest ET placement DATE: 07/02/2022 15:36 INDICATION: Postintubation. Tracheostomy tube removed emergently. TECHNIQUE: Portable supine AP chest on 07/02/2022 at 1529 hours COMPARISON: 07/02/2022 portable AP chest at 0521 hours FINDINGS: Interval removal of tracheostomy tube and placement of an ET tube which is in satisfactory position. Right internal jugular central venous catheter tip overlies the superior vena cava. Left transvenous pacemaker device is noted with lead overlying right ventricular apex. There is cardiomegaly. Pneumomediastinum and subcutaneous emphysema in the upper chest and particularly the bilateral cervic al soft tissues. There are bilateral predominantly central pulmonary infiltrates, particularly along the mediastinum a nd cardiac margin on the left. IMPRESSION: Removal of tracheostomy tube and placement of ET tube in satisfactory position Extensive pneumomediastinum and upper thoracic and prominent bilateral cervical subcutaneous emphysem a Prominent bilateral pulmonary infiltrates, greater centrally, especially along the left mediastinum a nd cardiac margin and increased since 0521 hours today Reviewed, dictated and finalized at Location [facility]. Reviewed, dictated and finalized at location A. SUPERINTENDENT IMPRESSION: Removal of tracheostomy tube and placement of ET tube in satisfacto ry position Extensive pneumomediastinum and upper thoracic and prominent bilateral cervical subcutaneous emphysema Prominent bilateral pulmonary infiltrates, greater centrally, especially along the left mediastinum and cardiac margin and increased since 0521 hours today
--- NOTE | ~2022-06-11 | CT_ITS ---
EXAMINATION: CT abdomen pelvis wo con DATE: 07/16/2022 11:21 INDICATION: Right renal mass. TECHNIQUE: Computed tomography (CT) of the abdomen and pelvis was performed without intravenous contr ast. The dose-length product was 1631.18 mGy-cm. Automated exposure control and iterative reconstruct ion technique were employed. COMPARISON: Ultrasound dated 07/15/2022. FINDINGS: There are bilateral pleural effusions, right greater than left. There is patchy bilateral a irspace disease with more focal consolidation in the lower lobes. There are diffuse groundglass opaci ties. Cardiomegaly. Mild atherosclerosis. There is ventral abdominal wall hernia containing small bow el. There is mild thickening of the small bowel at the hernia site. Cannot exclude partial obstructio n. No free air. There is evidence for previous ventral hernia repair. Severe lower thoracic and lumba r spondylosis. There is scoliosis. There is osteoarthritis of the hips. No definite obstruction. Ther e is mild mesenteric edema. Newberry catheter present in the bladder. Colonic diverticulosis without joe dence for diverticulitis. There is a G-tube present. There is a complex solid right renal mass laterally containing coarse calcifications, consistent with renal cell carcinoma until proven otherwise. This mass measures approximately 4.4 x 3.4 cm. There ar e multiple renal cysts. There is an intermediate density 2.9 cm left renal mass laterally measuring 3 5 Hounsfield units. IMPRESSION: 1. Solid complex right renal mass measuring 4.4 cm containing coarse calcifications, consistent with renal cell carcinoma until proven otherwise. 2: Indeterminate left renal mass measuring 2.[address] or MRI with/without contrast recommended. 3: Patchy bilateral airspace disease with consolidation of the lower lobes which may represent atele ctasis and/or pneumonia. 4: Bilateral pleural effusions, right greater than left. 5: Small ventral hernia containing small bowel which is focally thickened at the hernia site. Reviewed, dictated and finalized at location A. DRINIER MACHINE OPERATOR IMPRESSION: 1. Solid complex right renal mass measuring 4.4 cm containing coarse calcificat ions, consistent with renal cell carcinoma until proven otherwise. 2: Indeterminate left renal mass measuring 2.[address] or MRI with/without contrast recommended. 3: Patchy bilateral airspace disease with consolidation of the lower lobes whi ch may represent atelectasis and/or pneumonia. 4: Bilateral pleural effusions, right greater than left. 5: Small ventral hernia containing small bowel which is focally thickened at t he hernia site.
--- NOTE | ~2022-06-11 | XR_ITS ---
EXAMINATION: XR chest 1V portable DATE: 06/27/2022 05:54 INDICATION: Respiratory failure. TECHNIQUE: A single frontal view of the chest was obtained. COMPARISON: Chest single view 06/26/2022 FINDINGS: There are small pleural effusions. There are airspace opacities in all lung zones bilateral ly with a perihilar and basilar predominance. No pneumothorax. Cardiomegaly is noted. The endotrachea l tube tip is 1.9 cm above the angelita. There is a left chest pacer/defibrillator with lead in right v entricle. The nasogastric tube tip is beyond the inferior margin of the radiograph, but at least to t he stomach. A right internal jugular central venous catheter is seen with tip in the superior vena ca va. IMPRESSION: 1. Diffuse lung disease with worsening on the right, consistent with pulmonary edema versus pneumonia . 2. Stable small pleural effusions. 3. Cardiomegaly. Reviewed, dictated and finalized at location A. ER CHROME IMPRESSION: 1. Diffuse lung disease with worsening on the right, consistent with pulmonary edema versus pneumonia. 2. Stable small pleural effusions. 3. Cardiomegaly.
--- NOTE | ~2022-06-11 | XR_ITS ---
EXAMINATION: XR chest 1V portable INDICATION: Respiratory failure TECHNIQUE: Portable AP chest at 0518 hours COMPARISON: 07/09/2022 FINDINGS: Cardiomegaly is noted. Diffuse interstitial and airspace opacities persist throughout all l ledy zones with slight worsening in the right mid and lower lung zones. Small pleural effusions are melo ggested. A tracheostomy is in expected position. There is a single lead pacemaker with its lead in ex pected position. No pneumothorax is identified. IMPRESSION: 1. Diffuse lung disease with interval worsening in the right mid and lower lung zones, consistent wit h pneumonia and/or pulmonary edema. 2. Cardiomegaly. Reviewed, dictated and finalized at location A. HAUL TRUCK DRIVER IMPRESSION: 1. Diffuse lung disease with interval worsening in the right mid and lower lung zones, consistent with pneumonia and/or pulmonary edema. 2. Cardiomegaly.
--- NOTE | ~2022-06-11 | XR_ITS ---
XR chest 1V portable DATE: 07/06/2022 06:06 INDICATION: Respiratory failure TECHNIQUE: Portable AP chest on 07/06/2022 at 0537 hours COMPARISON: 07/05/2022 portable AP chest at 0525 hours FINDINGS: Tracheostomy tube is noted. Right internal jugular central venous catheter is noted in supe rior vena cava. Left transvenous pacemaker device with right ventricular lead. Cardiomegaly, pulmonary vascular congestion and redistribution. There are very prominent bilateral pu lmonary infiltrates which predominate in the central and lower lung zones, increased since 07/05/2022 , likely due to pulmonary edema. Pneumonia or aspiration are not excluded. Diffuse osteopenia. IMPRESSION: Increased bilateral pulmonary infiltrates since 07/05/2022, likely due to pulmonary edema Increased Reviewed, dictated and finalized at location A. ARCH METHODS INSTRUCTOR
--- NOTE | ~2022-06-11 | XR_ITS ---
XR chest 1V portable DATE: 07/04/2022 05:57 INDICATION: Ventricular fibrillation, cardiac arrest, pulmonary edema, mechanical ventilation TECHNIQUE: Portable AP chest on 06/30/2022 at 0515 hours COMPARISON: 07/03/2022 portable AP chest FINDINGS: Tracheostomy tube appears in satisfactory position. Right internal urinary stent of venous catheter tip is situated near the superior cavoatrial junction. Left transvenous pacemaker device/defibrillator with lead overlying right ventricular apex. There is cardiomegaly, pulmonary vascular congestion and redistribution and bilateral slightly centra l and lower lung zone infiltrates suggesting pulmonary edema. Increased density is noted in the retro cardiac area suggesting left lower lobe atelectasis and/or consolidation. Pneumonia is not excluded. Small pleural effusions. No pneumothorax. IMPRESSION: No significant change since 07/03/2022 Reviewed, dictated and finalized at location A. INSPECTOR
--- NOTE | ~2022-06-11 | XR_ITS ---
EXAMINATION: XR chest 1V portable DATE: 07/09/2022 08:30 INDICATION: Respiratory failure. TECHNIQUE: A single frontal view of the chest was obtained on 2 radiographs. COMPARISON: Chest single view 07/08/2022 FINDINGS: There are airspace opacities in all lung zones bilaterally with a perihilar predominance. T here is prominent extrapleural fat bilaterally. There may be small pleural effusions. No pneumothorax . Cardiomegaly is noted. There is a tracheostomy tube in expected position. There is a left chest pac er/defibrillator with lead in right ventricle. IMPRESSION: 1. Diffuse lung disease with mild improvement, consistent with pulmonary edema versus pneumonia. 2. Possible small pleural effusions. 3. Cardiomegaly. Reviewed, dictated and finalized at location A. PILOT
--- NOTE | ~2022-06-11 | CT_ITS ---
EXAMINATION: CTA chest PE protocol DATE: 06/11/2022 23:52 INDICATION: Cardiac arrest. TECHNIQUE: Computed tomography angiography (CTA) of the chest was performed with 100 mL Omnipaque-350 intravenous contrast timed to evaluate the pulmonary arteries. Coronal maximum intensity projection 3D-reconstructions were created by the technologist. Automated exposure control and iterative reconst ruction technique were employed. The dose-length product was 872.86 mGy-cm. COMPARISON: None. FINDINGS: The lungs demonstrate mild atelectasis bilaterally. There is mild bronchiectasis in left lo wer lobe. No pleural effusion. Cardiomegaly is noted. No pericardial effusion. There are coronary art linda calcifications. There is a 5.6 cm fusiform aneurysm of ascending aorta. There are calcifications of aortic valve. There is no pulmonary embolus. The nasogastric tube tip is beyond the inferior angela n of the scan, but at least to the stomach. There are changes of cholecystectomy. The endotracheal tu be tip is in expected position above the angelita. There is a left chest pacer with lead in right ventr icle. There are bridging endplate osteophytes at multiple levels in the spine, consistent with diffus e idiopathic skeletal hyperostosis (DISH). There is severe thoracic spondylosis. There are old healed left rib fractures. IMPRESSION: 1. No pulmonary embolus. Sensitivity is mildly decreased by motion artifact. 2. Cardiomegaly. 3. 5.6 cm fusiform aneurysm of ascending aorta. 3. Bronchiectasis in left lower lobe. Reviewed, dictated and finalized at location A.
--- NOTE | ~2022-06-11 | XR_ITS ---
EXAMINATION: XR chest ET placement Exam Date/Time: 06/19/2022 17:00 FACING SLITTER HISTORY: Intubation Comparison: Same date at 5:13 AM. RESULT: Significant rotation limits this examination. Lines, tubes, and devices: Endotracheal tube terminates 2 cm above the angelita. Nasogastric tube term inates off the inferior field of view. Right IJ central line terminating at the cavoatrial junction Lungs and pleura: Unchanged pulmonary opacities. Cardiomediastinal silhouette: Stable. Other: No acute osseous or upper abdominal finding. IMPRESSION: Exam limited by rotation. Lines and tubes remain in stable position. Unchanged pulmonary opacities. Reviewed, dictated and finalized at location K. NG SLITTER
--- NOTE | ~2022-06-11 | XR_ITS ---
EXAMINATION: XR abdomen NG/feed tube insert DATE: 06/19/2022 17:20 INDICATION: Orogastric tube placement. TECHNIQUE: A supine view of the abdomen on 2 radiographs was obtained. COMPARISON: Chest CT 06/11/2022 FINDINGS: The right lateral aspect of the abdomen is excluded. There are no dilated loops of bowel. S urgical clips in the right upper quadrant are likely from cholecystectomy. The nasogastric tube tip i s in the stomach. IMPRESSION: 1. Nasogastric tube tip in the stomach. Reviewed, dictated and finalized at location A. E GRINDER
--- NOTE | ~2022-06-11 | XR_ITS ---
XR chest 1V portable DATE: 06/15/2022 06:29 INDICATION: Intubation TECHNIQUE: Portable upright AP chest on 06/15/2022 at 0536 hours COMPARISON: 06/2022 portable AP chest at 0509 hours FINDINGS: Cardiomegaly. Elevated right diaphragm. There is infiltrate and/atelectasis in the left mid and both lower lung zones. Left-sided transvenous pacemaker device with lead overlying right ventricle. ET tube in satisfactory position approximately 3.5 cm above angelita. NG tube extends only approximately 3.4 cm into the gastric fundus. Advancement is recommended. Surgical clips overlie right upper quadrant. IMPRESSION: Cardiomegaly Left mid and bilateral lower lung infiltrate and/atelectasis ET tube in satisfactory position NG tube advancement is recommended; tube extends only approximately 3.4 cm distal to the diaphragmati c hiatus Reviewed, dictated and finalized at location A. IMPRESSION: Cardiomegaly Left mid and bilateral lower lung infiltrate and/atelectasis ET tube in satisfactory position NG tube advancement is recommended; tube extends only approximately 3.4 cm dist al to the diaphragmatic hiatus
--- NOTE | ~2022-06-11 | XR_ITS ---
EXAMINATION: XR chest 1V portable DATE: 06/13/2022 06:16 INDICATION: Acute respiratory failure. TECHNIQUE: A single frontal view of the chest was obtained. COMPARISON: Chest single view 06/12/2022, chest CT 06/11/2022 FINDINGS: There are mild airspace opacities in the mid and lower lung zones. No pleural effusion or p neumothorax. Cardiomegaly is noted. The endotracheal tube tip is 3.2 cm above the angelita. There is a left chest pacer/defibrillator with lead in right ventricle. A right internal jugular central venous catheter is seen with tip in the right atrium. IMPRESSION: 1. Stable mild airspace opacities in the mid and lower lung zones, consistent with atelectasis versus pneumonia. 2. Cardiomegaly. Reviewed, dictated and finalized at location A. IMPRESSION: 1. Stable mild airspace opacities in the mid and lower lung zones, consistent w ith atelectasis versus pneumonia. 2. Cardiomegaly.
--- NOTE | ~2022-06-11 | XR_ITS ---
EXAMINATION: XR chest 1V portable DATE: 06/18/2022 06:14 INDICATION: Intubated TECHNIQUE: frontal view of the chest was obtained. COMPARISON: Chest radiograph dated 06/17/2022 FINDINGS: Endotracheal tube tip 4.0 cm above the angelita. Nasogastric tube extends below the left hemidiaphragm with distal tip collimated off the study. Right internal jugular central venous catheter with distal tip at the caudal superior vena cava. Thyromegaly with pulmonary vascular congestion. Persistent airspace opacities in the left mid to lowe r lung zone. Less severe but increasing opacities in the right mid to lower lung zone. Small bilatera l pleural effusions, left greater than right. Single lead cardiac pacemaker/defibrillator with lead t ip projecting over the right ventricle. IMPRESSION: 1. Opacities in the bilateral mid and lower lung zones, left greater than right but with interval inc rease on the right. Differential includes pneumonia, pulmonary edema, atelectasis or some combination thereof. 2. Small bilateral pleural effusions. 3. Cardiomegaly. Reviewed, dictated and finalized at location A. ERCAM PROGRAMMER IMPRESSION: 1. Opacities in the bilateral mid and lower lung zones, left greater than right but with interval increase on the right. Differential includes pneumonia, pulm onary edema, atelectasis or some combination thereof. 2. Small bilateral pleural effusions. 3. Cardiomegaly.
--- NOTE | ~2022-06-11 | XR_ITS ---
EXAMINATION: XR chest 1V portable INDICATION: Respiratory failure TECHNIQUE: Portable AP chest at 0543 hours COMPARISON: 06/22/2022 FINDINGS: The endotracheal tube ends approximately 2.3 cm above the angelita. The nasogastric tube is f ollowed as far as the stomach. Its tip is beyond the inferior margin of the radiograph. Cardiomegaly is noted. A right internal jugular catheter ends with its tip in the midsuperior vena cava. A mild di ffuse interstitial pattern persists without significant change. There are small, stable pleural effus ions, left greater than right. Left basilar airspace opacities persist without significant change. A single lead pacemaker of the left chest wall ends with its lead projecting in the right ventricle. IMPRESSION: 1. Cardiomegaly with stable pulmonary edema. 2. Small pleural effusions, left greater than right, stable. 3. Stable left basilar airspace opacity, consistent with atelectasis versus pneumonia. Reviewed, dictated and finalized at location A. BED PRESS OPERATOR IMPRESSION: 1. Cardiomegaly with stable pulmonary edema. 2. Small pleural effusions, left greater than right, stable. 3. Stable left basilar airspace opacity, consistent with atelectasis versus pne umonia.
--- NOTE | ~2022-06-11 | XR_ITS ---
EXAMINATION: XR chest ET placement, XR abdomen NG/feed tube insert DATE: 06/29/2022 23:32 INDICATION: Intubated. Nasogastric tube reinsertion. TECHNIQUE: 1. Portable upright AP view of the chest was obtained. 2. Portable AP semierect view of the abdomen was obtained. COMPARISON: Chest radiograph dated 06/29/2022 at 5:23 AM FINDINGS: Endotracheal tube tip 3.3 cm above the angelita. Right internal jugular central venous catheter with di stal tip at the caudal superior vena cava. Nasogastric tube with tip in proximal side port in the bod y of the stomach. Increasing gradient of basilar predominant hazy airspace opacities throughout the right lung and in t he left mid to lower lung zone consistent with posterior layering bilateral pleural effusions. More d ense bilateral perihilar and basilar opacities which could represent associated atelectasis, pneumoni a or pulmonary edema. No pneumothorax. Cardiomegaly. Single lead cardiac pacemaker/AICD seen with the tip in the right ventricle. Cholecystectomy clips in right upper quadrant. No dilated loops of gas-f illed bowel in the visualized upper abdomen to suggest obstruction. IMPRESSION: 1. Increasing posterior layering small to moderate right and small left pleural effusions. 2. Increasing perihilar and basilar opacities which could represent associated atelectasis, pulmonary edema or pneumonia. 3. Cardiomegaly. Reviewed, dictated and finalized at location A. MAN IMPRESSION: 1. Increasing posterior layering small to moderate right and small left pleural effusions. 2. Increasing perihilar and basilar opacities which could represent associated atelectasis, pulmonary edema or pneumonia. 3. Cardiomegaly.
--- NOTE | 2022-06-11 21:12 | PC.NURSE ---
5 Dr. Wheeler and respiratory at bedside for intubation. 2111 Etomidate 30mg given IVP per Dr. Wheeler verbal order. 2112 Succinylcholine 100 mg given IVP per Dr. Wheeler verbal order. 2113 Pt intubated with 7.5 tube placed at 21 @ lip.
--- NOTE | 2022-06-11 21:16 | ECG_ITS ---
Measurements Intervals [place] Rate: 47 P: 224 RI: 162 QRS: 130 QRSD: 74 T: 99 QT: 372 QTc: 330 Interpretive Statements SINUS BRADYCARDIA WITH FIRST DEGREE AV BLOCK LEFT BUNDLE BRANCH BLOCK BASELINE ARTIFACT- I, II, III, AVR, AVL, AVF, V1-V6 ABNORMAL ECG COMPARED TO ECG 06/12/2021 12:26:20 SINUS BRADYCARDIA NOW PRESENT Electronically Signed On 06-12-2022 12:06:40 CDT by Niels Brower D.O.
--- NOTE | 2022-06-11 21:20 | PC.NURSE ---
Radiology at bedside for chest xray
--- NOTE | 2022-06-11 21:33 | ED.GENADULT ---
HPI - General Adult General Chief complaint: Unspecified Stated complaint: CARDIAC ARREST - ROSC History of Present Illness HPI narrative: Patient is a 77-year-old male who presents the ER after having cardiac arrest in the field. reports that he was sitting watching TV and began to say he did not feel right. She then states he started having some jerking movements like he could be having a seizure. She then reports she saw him dark like his AICD had delivered a shock. PD arrived and attempted CPR. EMS arrived and placed the Flash on the patient. Patient was in [place] in the 30s for EMS. He received 2 doses of epinephrine as well as CPR and had an eye gel placed. He then had return of spontaneous circulation. reports she has had no other abnormalities over the previous few days and has been acting normally. Related Data Home Medications Medication Instructions Recorded Confirmed multivitamin 1 tablet PO DAILY 09/27/19 06/12/22 ascorbic acid (vitamin C) 1,000 mg 1,000 mg PO DAILY 02/08/20 06/12/22 tablet,extended release rivaroxaban 20 mg tablet (Xarelto) 20 mg PO DAILY 03/14/21 06/12/22 coQ10 (ubiquinol) 200 mg capsule 200 mg PO DAILY 06/12/21 06/12/22 amiodarone 400 mg tablet 200 mg PO DAILY 06/12/22 06/12/22 cholecalciferol (vitamin D3) 25 25 mcg PO Q12H 06/12/22 06/12/22 mcg (1,000 unit) tablet (Vitamin D3) metoprolol succinate 25 mg 25 mg PO DAILY 06/12/22 06/12/22 tablet,extended release 24 hr omega-3 fatty acids 1,000 mg 4,000 mg PO DAILY 06/12/22 06/12/22 capsule spironolactone 25 mg tablet 25 mg PO DAILY 06/12/22 06/12/22 trazodone 50 mg tablet 50 - 100 mg PO HS PRN Insomnia 06/12/22 06/12/22 Allergies Allergy/AdvReac Type Severity Reaction Status Date / Time No Known Allergies Allergy Verified 05/22/22 08:12 Review of Systems Review of Systems: ROS unobtainable: Yes unobtainable due to medical condition PMFSH Past Medical History Medical History (Updated 06/12/22 @ 03:55 by Oleg Wheeler MD) Abscess Atrial flutter Benign essential hypertension Bilateral cataracts BMI 38.0-38.9,adult Bronchitis Cardiac arrest with ventricular fibrillation (2013) CHF (congestive heart failure) Chronic anticoagulation CKD (chronic kidney disease) Cough Elevated serum creatinine Encounter for Medicare annual wellness exam History of colon polyps Hyperlipidemia Hypertension Hypotension Impacted cerumen of left ear Nonischemic cardiomyopathy Echocardiogram in March 2021 showed severe LV systolic dysfunction with an EF of 25 to 30%. Otitis of left ear Pyogenic granuloma Vitamin D deficiency Surgical History Surgical History History of cholecystectomy History of implantable cardioverter-defibrillator (ICD) insertion History of open reduction and internal fixation (ORIF) procedure Bilateral lower extremity fractures. History of total right knee replacement S/P cataract surgery Family History Family History Father Family history of heart disease in male family member before age 55 Family history of cardiovascular disease Mother Family history of heart disease in male family member before age 55 Family history of cardiovascular disease Sibling Colon cancer Social History Social History (Updated 05/31/22 @ 10:18 by Holly Perez CMA) Social History: Surrogate decision maker: Delaney Schneider, . Code status: Full code. Smoking status: Never smoker Second hand tobacco smoke exposure: No Smoking end date: 08/11/85 Alcohol intake: never Substance use: never Substance use type: does not use Has the Lack of Transportation Kept You From Medical Appointments or From Getting Medications?: No Within the Past 12 Months, Were You Worried Whether Your Food Would Run Out Before You Got Money to Buy More?: Never True What is Your Housing Situation Today?: I Have
[2022-06-11] MEDS: EPINEPHrine INJ 1 MG in DEXTROSE 5% IN WATER 250 ML 15.06 MG IV CONT (21:37)
[2022-06-11 21:41] LABS: Basophils Absolute Auto 0.1 K/mm3 (0.0-0.1); Basophils Percent Auto 0.7 % (0.2-1.2); Eosinophils Absolute Auto 0.3 K/mm3 (0-0.3); Eosinophils Percent Auto 2.8 % (0-4.4); Hematocrit 38.5 % (42.0-52.0); Hemoglobin 12.2 g/dL (14.0-18.0); Immature Granulocyte Absolute 0.44 K/mm3 (0.00-0.031); Immature Granulocyte Percent A 4.7 % (0-0.5); Lymphocytes Absolute Auto 2.36 K/mm3 (0.9-3.2); Lymphocytes Percent Auto 25.1 % (18.3-44.2); Mean Corpuscular HGB Conc 31.7 g/dl (32-36); Mean Corpuscular Hemoglobin 31.4 pg (26-34); Mean Corpuscular Volume 99.2 fl (80-100); Mean Platelet Volume 9.6 fl (7.4-10.4); Monocytes Absolute Auto 0.9 K/mm3 (0.1-0.6); Neutrophils Absolute Auto 5.3 K/mm3 (1.3-6.7); Neutrophils Percent Auto 56.7 % (45.5-73.1); Platelet Count Result 201 k/mm3 (150-375); Red Blood Count 3.88 M/mm3 (4.6-6.20); Red Cell Distribution Width 13.2 % (11.5-14.5); White Blood Count 9.4 K/mm3 (4.5-10.0)
--- NOTE | 2022-06-11 21:43 | PC.NURSE ---
[employer] pacemaker attempting to be interrogated at this time per Dr. Wheeler verbal order.
[2022-06-11 21:50] LABS: Alanine Aminotransferase 43 U/L (6-50); Albumin Level 3.6 g/dL (3.5-5.1); Alkaline Phosphatase 141 U/L (38-126); Anion Gap 12 mmol/L (8-16); Aspartate Amino Transferase 56 U/L (17-59); Bilirubin,Total 0.4 mg/dL (0.2-1.3); Blood Urea Nitrogen 29 mg/dL (9-20); Calcium 8.3 mg/dL (8.4-10.2); Carbon Dioxide 19 mmol/L (22-30); Chloride 105 mmol/L (98-107); Estimated Glomerular Filt Rate 45; Glucose 240 mg/dL (65-110); Potassium 3.9 mmol/L (3.4-5.0); Sodium 136 mmol/L (137-145)
--- NOTE | 2022-06-11 21:50 | PC.NURSE ---
Dr. Wheeler found documentation of implanted defib brand and we do not have that type of interrogator for his brand.
[2022-06-11 21:51] LABS: INR 1.6; Lactic Acid Reflex 3.7 mmol/L (0.7-2.0); Partial Thromboplastin Time 32.3 SECONDS (22.3-36.8); Prothrombin Time 18.1 Seconds (11.1-14.7)
--- NOTE | 2022-06-11 21:55 | PC.NURSE ---
[employer]formerly [employer] contacted [phone]. local rep will reach out dinah and fax us a copy of his current activity.
--- NOTE | 2022-06-11 22:00 | PC.NURSE ---
per [employer] no shocks delivered today, last shock they have a record of was June 12, 2021. Last update from his system to their system was June 11, 2022 @ 0400. However if there would have been a shock delivered it is all wireless and automatic. There shows no activity. It only showed low heart rate.
[2022-06-11] MEDS: MIDAZOLAM 100MG/NS 100ML(*CRX) 100 MG/100 ML BAG IV CONT (22:03)
[2022-06-11 22:06] LABS: Alveolar/Arterial O2 Gradient 234.1 mmHg; Carboxyhemoglobin 0.3 % THb (0-2.0); Fractional Inspired Oxygen 50 %; HCO3 ABG 18.6 mEq/l (22.0-26.0); Methemoglobin ABG 0.2 %THb (0-1.5); Oxygen Content ABG 16.9 %vol (16.0-22.0); Oxygen Saturation ABG 94.8 % (95.0-100.0); Oxyhemoglobin 94.1 % THb (90.0-100.0); PCO2 ABG 37.9 mmHg (35.0-45.0); PO2 ABG 79.8 mmHg (80.0-100.0); Reduced Hemoglobin 5.4 %THb (0-5.0); Total Hemoglobin 12.7 g/dL (12.0-18.0); pH ABG 7.309 (7.350-7.450)
[2022-06-11 22:07] LABS: Device VENTILATOR; Modified Allen's Test Unable to perform; Site Drawn LEFT RADIAL
[2022-06-11 22:08] LABS: Arterial Blood Gas PEEP 8 cmH2O; Arterial Blood Gas Tidal Volume 450 ml; Arterial Blood Gas Vent Mode CMV; Arterial Blood Gas Ventilator rate 18 /MIN
[2022-06-11 22:08] LABS: NT Pro B Type Natriuretic Pept 1470 pg/mL (5-100); Troponin I 0.065 ng/mL (0.000-0.034)
--- NOTE | 2022-06-11 22:08 | PC.NURSE ---
[employer] will come out to bump rate from 40 to 60 per manager of engineering request per freda carter.
[2022-06-11] MEDS: FENTANYL 2,500MCG/NS250ML(*CRX 2,500 MCG/250 ML BAG IV CONT (22:35)
[2022-06-11] MEDS: fentaNYL CITRATE INJ (*CRX) 100 MCG/2 ML VIAL 25 MCG IV PUSH (22:46)
[2022-06-11] MEDS: MIDAZOLAM HCL (*CRX) 2 MG/2 ML VIAL IV PUSH (22:52)
[2022-06-11] MEDS: FUROSEMIDE INJ 40 MG/4 ML VIAL IV PUSH (22:54)
--- NOTE | 2022-06-11 22:59 | PC.NURSE ---
[employer] Rep at bedside for evaluation of defibrillator.
--- NOTE | 2022-06-11 23:05 | PC.NURSE ---
Report given to KERRI Black
--- NOTE | 2022-06-11 23:25 | PC.NURSE ---
Pt taken to CT on monitor with respiratory
--- NOTE | 2022-06-11 23:50 | PC.NURSE ---
Pt returned from CT
--- NOTE | 2022-06-11 23:54 | PC.NURSE ---
Radiology at bedside for xray
[2022-06-12] VITALS (83 sets, daily range): BP systolic 74–169; BP diastolic 55–144; PULSE 59–78; RESP 13–27; TEMP 32.3–36.8; O2SAT 96–100; BMI 38.9
--- NOTE | 2022-06-12 | PC.NURSE ---
Verbal order per dr carter 2mg versed
[2022-06-12] MEDS: MIDAZOLAM HCL (*CRX) 2 MG/2 ML VIAL IV PUSH (00:02)
[2022-06-12 00:36] LABS: SARS-CoV-2 RNA PCR Negative
[2022-06-12 00:39] LABS: Reflex Lactic Acid Yes or No Add Lactic
--- NOTE | 2022-06-12 00:55 | PC.NURSE ---
per CHILD CARE ASSISTANT pt must have central line to have cooling blanket applied. This RN applied 4 ice packs around pt. Cooling blanket not applied.
[2022-06-12 00:57] LABS: Troponin I 0.431 ng/mL (0.000-0.034)
--- NOTE | 2022-06-12 01:01 | PM.IMHP ---
H&P: HPI History of Present Illness Date/Time: 06/12/22 01:01 Chief Complaint: Cardiac arrest Narrative: This is a 77-year-old male with past medical history significant for atrial flutter, hypertension, congestive heart failure, chronic kidney disease, nonischemic cardiomyopathy, AICD implanted, ejection fraction is 25-30%, moderate aortic stenosis. Patient was brought today due to witnessed cardiac arrest at home by his who is a retired nurse witnessed how the patient was in his recliner reach over to grab his blood pressure monitor in device and then he lost consciousness right after seem to have had some myoclonic jerks and 911 was called initial rhythm upon arrival was ventricular fibrillation ROSC was achieved, he was intubated on the field also he was noted to be shocked by his implantable cardioverter defibrillator device and patient was transferred to our facility. patient is now on ventilator support. History has been obtained upon reviewing medical records as well as speaking to family who is at bedside mainly who witnessed the event. Review of Systems Review of Systems: ROS unobtainable: Yes unobtainable due to medical condition (Comatose under sedation status post cardiac arrest) [facility] Past Medical History Medical History (Updated 06/12/22 @ 02:09 by Kerri Perez MD) Abscess Atrial flutter Benign essential hypertension Bilateral cataracts BMI 38.0-38.9,adult Bronchitis Cardiac arrest with ventricular fibrillation (2013) CHF (congestive heart failure) Chronic anticoagulation CKD (chronic kidney disease) Cough Elevated serum creatinine Encounter for Medicare annual wellness exam History of colon polyps Hyperlipidemia Hypertension Hypotension Impacted cerumen of left ear Nonischemic cardiomyopathy Echocardiogram in March 2021 showed severe LV systolic dysfunction with an EF of 25 to 30%. Otitis of left ear Pyogenic granuloma Vitamin D deficiency Surgical History Surgical History History of cholecystectomy History of implantable cardioverter-defibrillator (ICD) insertion History of open reduction and internal fixation (ORIF) procedure Bilateral lower extremity fractures. History of total right knee replacement S/P cataract surgery Family History Family History Father Family history of heart disease in male family member before age 55 Family history of cardiovascular disease Mother Family history of heart disease in male family member before age 55 Family history of cardiovascular disease Sibling Colon cancer Social History Social History (Updated 05/31/22 @ 10:[address] [facility]) Social History: Surrogate decision maker: Delaney Schneider, . Code status: Full code. Smoking status: Never smoker Second hand tobacco smoke exposure: No Smoking end date: 08/11/85 Alcohol intake: never Substance use: never Substance use type: does not use Has the Lack of Transportation Kept You From Medical Appointments or From Getting Medications?: No Within the Past 12 Months, Were You Worried Whether Your Food Would Run Out Before You Got Money to Buy More?: Never True What is Your Housing Situation Today?: I Have Housing Are You Worried That in the Next 2 Months, You May Not Have Your Own Housing to Live In?: No Do You Have Trouble Paying Your Heating Or Electricity Bill?: No Do You Have Trouble Paying For Medicines?: No Are You Currently Unemployed and Looking for Work?: No Highest Level of Education Completed: Associate Degree Do You Have Trouble With Childcare or the Care of a Family Member?: No Additional living arrangements comments: The patient lives in [place] with his . Additional occupation/education comments: Retired [employer]. Also worked at [employer]. Gender identity (if verbalized by the patient):
[2022-06-12] MEDS: HEPARIN SODIUM 5,000 UNITS/ML VIAL 4000 UNITS IV PUSH (01:07)
[2022-06-12 03:37] LABS: Basophils Absolute Auto 0.1 K/mm3 (0.0-0.1); Basophils Percent Auto 0.3 % (0.2-1.2); Eosinophils Percent Auto 0.1 % (0-4.4); Hematocrit 41.2 % (42.0-52.0); Hemoglobin 12.9 g/dL (14.0-18.0); Immature Granulocyte Absolute 0.21 K/mm3 (0.00-0.031); Immature Granulocyte Percent A 1.2 % (0-0.5); Lymphocytes Absolute Auto 0.76 K/mm3 (0.9-3.2); Lymphocytes Percent Auto 4.4 % (18.3-44.2); Mean Corpuscular HGB Conc 31.3 g/dl (32-36); Mean Corpuscular Hemoglobin 31.3 pg (26-34); Mean Platelet Volume 9.8 fl (7.4-10.4); Monocytes Absolute Auto 1.4 K/mm3 (0.1-0.6); Monocytes Percent Auto 7.9 % (2.6-8.5); Neutrophils Absolute Auto 14.8 K/mm3 (1.3-6.7); Neutrophils Percent Auto 86.1 % (45.5-73.1); Platelet Count Result 235 k/mm3 (150-375); Red Blood Count 4.12 M/mm3 (4.6-6.20); White Blood Count 17.2 K/mm3 (4.5-10.0)
[2022-06-12] MEDS: ROCURONIUM BROMIDE 50 MG/5 ML VIAL IV PUSH ×2 (03:40→06:29)
[2022-06-12 03:53] LABS: Anion Gap 15 mmol/L (8-16); Blood Urea Nitrogen 33 mg/dL (9-20); Calcium 8.7 mg/dL (8.4-10.2); Carbon Dioxide 23 mmol/L (22-30); Chloride 101 mmol/L (98-107); Estimated CRCL calculation 38 ml/min; Estimated Glomerular Filt Rate 37; Glucose 290 mg/dL (65-110); Magnesium 1.9 mg/dL (1.6-2.3); Potassium 4.2 mmol/L (3.4-5.0); Sodium 139 mmol/L (137-145)
[2022-06-12 03:58] LABS: Lactic Acid 4.7 mmol/L (0.7-2.0)
[2022-06-12 04:10] LABS: Troponin I 0.916 ng/mL (0.000-0.034)
[2022-06-12 05:07] LABS: Glucose Point of Care 298 mg/dl (65-105)
[2022-06-12 05:20] LABS: Alveolar/Arterial O2 Gradient 184.6 mmHg; Base Excess ABG -5.1 mEq/l (+/-2.0); Carboxyhemoglobin 0.1 % THb (0-2.0); Fractional Inspired Oxygen 50 %; HCO3 ABG 21.4 mEq/l (22.0-26.0); Methemoglobin ABG 0.3 %THb (0-1.5); Oxygen Content ABG 19.6 %vol (16.0-22.0); Oxyhemoglobin 97.3 % THb (90.0-100.0); PCO2 ABG 45.4 mmHg (35.0-45.0); PO2 ABG 120.8 mmHg (80.0-100.0); PO2 FiO2 Ratio Arterial Blood 2.42 %; Reduced Hemoglobin 2.3 %THb (0-5.0); Total Hemoglobin 14.2 g/dL (12.0-18.0)
[2022-06-12 05:21] LABS: Modified Allen's Test Unable to perform; Site Drawn RIGHT RADIAL; pH ABG 7.292 (7.350-7.450)
[2022-06-12 05:22] LABS: Arterial Blood Gas PEEP 8 cmH2O; Arterial Blood Gas Tidal Volume 450 ml; Arterial Blood Gas Vent Mode CMV; Arterial Blood Gas Ventilator rate 18 /MIN; Device VENTILATOR
[2022-06-12] MEDS: HEPARIN SOD/D5W 100 UNITS/ML 25,000 UNITS/250 ML BAG 10 UNITS IV CONT (05:22)
[2022-06-12] MEDS: SODIUM CHLORIDE 0.9% IV 1,000 ML 999 ML IV CONT (06:29)
[2022-06-12 07:33] LABS: Glucose Point of Care 259 mg/dl (65-105)
--- NOTE | 2022-06-12 08:00 | ECG_ITS ---
Measurements Intervals Tram Rate: 60 P: NE: 0 QRS: -67 QRSD: 230 T: 61 QT: 590 QTc: 590 Interpretive Statements ELECTRONIC VENTRICULAR PACEMAKER BASELINE ARTIFACT- I, III NO FURTHER INTERPRETATION IS POSSIBLE ATYPICAL ECG COMPARED TO ECG 06/12/2021 12:26:20 ELECTRONIC VENTRICULAR PACEMAKER NOW PRESENT Electronically Signed On 06-12-2022 10:56:58 CDT by Niels Brower D.O.
--- NOTE | 2022-06-12 08:22 | PC.NURSE ---
New orders for Fentanyl and Versed ordered per Dr. Bean for titrating purposes. New bags hung and scanned. Lasix IVP d/c'd per Dr. Bean as well.
[2022-06-12] MEDS: FENTANYL 2,500MCG/NS250ML(*CRX 2,500 MCG/250 ML BAG IV CONT (08:38)
[2022-06-12] MEDS: MIDAZOLAM 100MG/NS 100ML(*CRX) 100 MG/100 ML BAG IV CONT (08:38)
[2022-06-12] MEDS: MINERAL OIL/WHITE PETROLATUM OINTMENT 1 APPLIC EACH EYE ×2 (08:39→20:23)
[2022-06-12 08:46] LABS: Glucose Point of Care 305 mg/dl (65-105)
--- NOTE | 2022-06-12 09:03 | PM.CNCAR ---
Assessment and Plan Assessment and plan (1) Cardiac arrest with ventricular fibrillation: Code(s): I46.9 - Cardiac arrest, cause unspecified; I49.01 - Ventricular fibrillation Status: Acute Assessment and Plan: Patient has suffered a VFib arrest and was appropriately defibrillated by his ICD. However then he suffered a PEA arrest requiring CPR. Currently intubated and sedated in the ICU on a cooling protocol Initially hypotensive, supported with epinephrine, resolved. Initially bradycardic, ICD reprogrammed for a backup rate of 60, improved. This is a single lead pacemaker but a Biotronik lead that has atrial sensing electrodes. May have hypoxic encephalopathy. Continue supportive care. (2) Acute on chronic systolic CHF (congestive heart failure): Code(s): I50.23 - Acute on chronic systolic (congestive) heart failure Status: Acute Assessment and Plan: History of nonischemic cardiomyopathy, EF 25-30%. Echo when patient is off his cooling protocol Received 1 dose of IV Lasix in the emergency room; CXR improved. Resume heart failure medications when blood pressure stable Chest x-ray in the morning. Daily BMP (3) Presence of combination internal cardiac defibrillator (ICD) and pacemaker: Code(s): Z95.810 - Presence of automatic (implantable) cardiac defibrillator Status: Acute Assessment and Plan: Biotronik ICD single lead ICD with atrial sensing electrodes History of V-tach, on chronic amiodarone; resume when patient does not appear bradycardic Appropriate ICD discharge yesterday evening for VFib No recurrent ventricular arrhythmias since admission. At some point will reprogrammed the ICD to a backup VVI, rate of 40. (4) Paroxysmal atrial flutter: Code(s): I48.92 - Unspecified atrial flutter Status: Acute Assessment and Plan: History of paroxysmal atrial flutter, on Eliquis. None seen this admission Currently on a heparin drip History of Present Illness History of Present Illness Consult date/time: 06/12/22 09:03 Reason For Visit: V FIB ARREST, Pulmonary Edema Narrative: Kenny Sears is a 77-year-old male whom I was asked to see at the request of Dr. Wheeler for my advice and opinion regarding his cardiac arrest, in consultation. He has a history of a nonischemic cardiomyopathy with his EF being 25-30% a couple years ago. chronic anticoagulation for paroxysmal atrial flutter, hypertension, CHF, CKD, moderate aortic stenosis. Mr. Schneider is followed by Dr. Tolentino for his nonischemic cardiomyopathy. He has a history of a Biotronik ICD. He has a history of a V. tach storm apparently a few years ago , but no recent problems with arrhythmias taking metoprolol and amiodarone. The patient was in his normal state of health until last night when he was watching TV and did not feel well. He was reaching for his blood pressure cuff then became unresponsive. His apparently noted some jerking movements and it appeared that his ICD had delivered a shock. The police department arrived and started CPR (AED advised no shock) and when EMS arrived at 8:25 p.m. he was in a PEA arrest. He received 2 doses of epi and had return of spontaneous circulation and CPR was discontinued at 8:40 p.m. He was transferred to the ER. He was started on an epinephrine drip for bradycardia and hypotension. He was intubated in the emergency room. His ICD was interrogated and showed that he had an episode of polymorphic V-tach/ VFib with an appropriate ICD discharge at 8:23 p.m. last night , converting him to AV paced rhythm. Because of his bradycardia I recommended his backup pacing rate be increased to 60 beats per minute and the device was reprogrammed. In the emergency room he was not waking up and appeared to be posturing. The patient is now in the ICU, on a vent with an FiO2 of 40%, and sedated. The epinephrine has been weaned off and his blood pressure
[2022-06-12] MEDS: INSULIN ASPART (*BKC) 100 UNITS/ML SUB-Q (09:21)
[2022-06-12 09:25] LABS: Glucose Point of Care 282 mg/dl (65-105)
[2022-06-12 10:06] LABS: Glucose Point of Care 251 mg/dl (65-105)
[2022-06-12] MEDS: SODIUM CHLORIDE 0.9% IV 1,000 ML 50 ML IV CONT (11:02)
[2022-06-12 11:09] LABS: Glucose Point of Care 250 mg/dl (65-105)
[2022-06-12 11:09] LABS: Anion Gap 14 mmol/L (8-16); Blood Urea Nitrogen 32 mg/dL (9-20); Calcium 8.3 mg/dL (8.4-10.2); Carbon Dioxide 23 mmol/L (22-30); Chloride 104 mmol/L (98-107); Estimated CRCL calculation 44 ml/min; Estimated Glomerular Filt Rate 45; Glucose 226 mg/dL (65-110); Magnesium 1.9 mg/dL (1.6-2.3); Phosphorus 4.2 mg/dL (2.5-4.5); Potassium 4.5 mmol/L (3.4-5.0); Sodium 141 mmol/L (137-145)
[2022-06-12 11:11] LABS: Hemoglobin A1C 6.2 % (<5.7)
[2022-06-12 12:03] LABS: Glucose Point of Care 227 mg/dl (65-105)
[2022-06-12] MEDS: PANTOPRAZOLE SODIUM IV 40 MG VIAL IV PUSH (12:03)
[2022-06-12] MEDS: INSULIN HUMAN REGULAR (*BKC) 100 UNITS in SODIUM CHLORIDE 0.9% IV 99 ML IV CONT (12:14)
[2022-06-12] MEDS: CISATRACURIUM BESYLATE 20 MG/10 ML VIAL 17 MG IV PUSH (12:16)
[2022-06-12] MEDS: CISATRACURIUM BESYLATE 200 MG in DEXTROSE 5% 80 ML 10.17 ML IV CONT (12:18)
[2022-06-12 12:19] LABS: Partial Thromboplastin Time 98.4 SECONDS (22.3-36.8)
[2022-06-12] MEDS: hetaSTARCH 6%/NACL 500 ML 250 ML IV CONT (12:31)
--- NOTE | 2022-06-12 12:40 | WPDCNINT ---
Assessment and Plan Assessment and plan (1) Cardiac arrest with ventricular fibrillation: Code(s): I46.9 - Cardiac arrest, cause unspecified; I49.01 - Ventricular fibrillation Status: Acute Assessment and Plan: Patient presented with VFib arrest, ROSC within 15 minutes, total down time was about 25 minutes. -currently on targeted temperature management -elevated troponins likely related to cardiac arrest -patient is on heparin infusion possible NSTEMI -appreciate cardiology evaluation -echocardiogram will be done in the morning as patient is currently being cooled (2) Acute respiratory failure with hypoxia: Code(s): J96.01 - Acute respiratory failure with hypoxia Status: Acute Assessment and Plan: Acute respiratory failure likely related to cardiac arrest -patient was intubated ED on 06/11/2022 -continue CMV mode of ventilation, peep of 8 in 50% FiO2, wean FiO2 to maintain O2 sats greater than 92% -currently on fentanyl and Versed for sedation -patient is shivering so will add Nimbex -had bronchodilators (3) Acute kidney injury: Code(s): N17.9 - Acute kidney failure, unspecified Status: Acute Assessment and Plan: Patient with acute kidney injury likely related cardiac arrest, diuretics -patient was given IV fluids this morning due to elevated lactic acid -creatinine improving -repeat lactic is trending down -continue to monitor renal function, electrolytes and urine output (4) DM type 2 (diabetes mellitus, type 2): Code(s): E11.9 - Type 2 diabetes mellitus without complications Status: Acute Assessment and Plan: Has been hyperglycemic, started on insulin infusion for appropriate blood sugar control (5) Nonischemic cardiomyopathy: Code(s): I42.8 - Other cardiomyopathies Status: Acute Assessment and Plan: Nausea nonischemic cardiomyopathy with EF of 20-25% on an echocardiogram done and 06/12/2021 -status post AICD -chest x-ray does not reveal significant pulmonary edema, will hold all diuresis at this time given decreased renal function and increase lactic acid -will cautiously hydrate patient Plan DVT prophylaxis: On heparin infusion Stress ulcer prophylaxis: IV Protonix Nutrition: NPO for now Code Status: Full code Critical Care Time Spent: 51 minutes Due to a high probability of clinically significant, life threatening deterioration, the patient required my highest level of preparedness to intervene emergently and I personally spent this critical care time directly and personally managing the patient. This critical care time included obtaining a history; examining the patient; pulse oximetry; ordering and review of studies; arranging urgent treatment with development of a management plan; evaluation of patient's response to treatment; frequent reassessment; and discussions with other providers. It was exclusive of separately billable procedures and treating other patients and teaching time. Please see Assessment and Plan section and the rest of the note for further information on patient assessment and treatment Mac Developer Consult Note Consult date: 06/12/22 Reason for consult: VFib arrest, acute respiratory failure, HPI: Kenny Schneider is a 77 year old male with significant past medical history of atrial flutter, cardiac arrest with ventricular fibrillation, CHF, CKD, severe LV systolic dysfunction with EF of 25-30% status post AICD, essential hypertension, diabetes, hyperlipidemia ED via EMS after he was found in VFib arrest, according the EMS note from the time they arrived he was in PEA, CPR was started in ROSC within 15 minutes of CPR. Patient was down for about 10 minutes prior to that. So total down time was around 25 minutes. Patient did receive epinephrine in the field. Patient was intubated in the ER. Patient was given Lasix in the ER, started on hypothermia protocol and transferred to the ICU for further management. JENNIFER shafer
[2022-06-12 12:53] LABS: Creatine Kinase 118 U/L (55-170); Lactic Acid Reflex 3.2 mmol/L (0.7-2.0)
--- NOTE | 2022-06-12 13:04 | P.PCNBED_ITS ---
Procedures Central Line Placement Right IJ: Central Line Date: 06/12/22 Central Line Time: 09:02 Consent: I have discussed with the patient and/or surrogate, the non-emergent placement of a central venous catheter, including its clinical necessity/indication and associated potential risks and complications. The patient and/or surrogate understand(s) and acknowledge(s) the need to proceed with central venous catheter insertion as an important element of the patient's clinical management. Time Out Performed: Yes Patient Position: supine Patient placed on monitor/pulse ox: Yes Provider Prep: mask, sterile gown, sterile gloves, Max. sterile barrier precautions, cap and hand hygiene with conventional soap/water or alcohol based hand rub Central line prep: 2% Chlorhexidine scrub Local anesthesia used: lidocaine 1% Amount of anesthesia used (ml): 3 Sterile US Technique with sterile gel/sterile probe covers: Yes Nepali: 12 Length (cm): 16 Depth of Insertion (cm): 16 Post Procedure: sutured in place, good blood return, all ports aspirated, flushed, capped, transparent dressing, hemostatic product, antimicrobial product, securement product and aseptic technique maintained throughout procedure Post procedure x-ray: tip of catheter in good position Patient tolerated procedure: well Complications: none
[2022-06-12 13:20] LABS: Glucose Point of Care 219 mg/dl (65-105)
[2022-06-12] MEDS: CENTRAL LINE FLUSH 10 ML IV PUSH ×2 (14:12→20:23)
[2022-06-12 14:18] LABS: Glucose Point of Care 211 mg/dl (65-105)
[2022-06-12 15:00] LABS: Reflex Lactic Acid Yes or No Add Lactic
[2022-06-12 15:27] LABS: Glucose Point of Care 192 mg/dl (65-105)
[2022-06-12 15:30] LABS: Lactic Acid 2.1 mmol/L (0.7-2.0)
--- NOTE | 2022-06-12 16:00 | ECG_ITS ---
Measurements Intervals [place] Rate: 60 P: MA: 0 QRS: -58 QRSD: 158 T: 0 QT: 280 QTc: 280 Interpretive Statements ELECTRONIC VENTRICULAR PACEMAKER BASELINE WANDER- I, AVR, AVL, AVF NO FURTHER INTERPRETATION IS POSSIBLE ATYPICAL ECG COMPARED TO ECG 06/12/2022 10:04:23 NO SIGNIFICANT CHANGES Electronically Signed On 06-12-2022 16:07:54 CDT by Niels Brower D.O.
[2022-06-12 16:16] LABS: Glucose Point of Care 177 mg/dl (65-105)
[2022-06-12 16:25] LABS: Anion Gap 13 mmol/L (8-16); Blood Urea Nitrogen 31 mg/dL (9-20); Calcium 8.1 mg/dL (8.4-10.2); Carbon Dioxide 22 mmol/L (22-30); Chloride 106 mmol/L (98-107); Estimated CRCL calculation 50 ml/min; Estimated Glomerular Filt Rate 53; Glucose 138 mg/dL (65-110); Potassium 3.4 mmol/L (3.4-5.0); Sodium 141 mmol/L (137-145)
[2022-06-12 16:25] LABS: Hematocrit 35.1 % (42.0-52.0); Hemoglobin 11.4 g/dL (14.0-18.0); Mean Corpuscular HGB Conc 32.5 g/dl (32-36); Mean Corpuscular Hemoglobin 31.5 pg (26-34); Mean Platelet Volume 9.4 fl (7.4-10.4); Platelet Count Result 155 k/mm3 (150-375); Red Blood Count 3.62 M/mm3 (4.6-6.20); Red Cell Distribution Width 13.1 % (11.5-14.5); White Blood Count 11.5 K/mm3 (4.5-10.0)
[2022-06-12 16:34] LABS: Lactic Acid Reflex 2.1 mmol/L (0.7-2.0)
[2022-06-12 16:36] LABS: Anion Gap 11 mmol/L (8-16); Blood Urea Nitrogen 31 mg/dL (9-20); Calcium 8.1 mg/dL (8.4-10.2); Carbon Dioxide 23 mmol/L (22-30); Chloride 106 mmol/L (98-107); Creatine Kinase 128 U/L (55-170); Estimated CRCL calculation 50 ml/min; Estimated Glomerular Filt Rate 53; Glucose 129 mg/dL (65-110); Magnesium 1.9 mg/dL (1.6-2.3); Phosphorus 2.3 mg/dL (2.5-4.5); Potassium 3.4 mmol/L (3.4-5.0); Sodium 140 mmol/L (137-145)
--- NOTE | 2022-06-12 16:45 | PC.NURSE ---
Spoke with Dr. Bean regarding decreasing in patient's BP. New order to start Levophed infusion and to maintain MAP >70. Also new order for Albuin 25% IVPB q6hr x4 bottles.
[2022-06-12] MEDS: NOREPINEPHRINE 8 MG/D5W 250 ML 8 MG/250 ML BAG 9.38 MG IV CONT (17:13)
[2022-06-12 17:27] LABS: Glucose Point of Care 133 mg/dl (65-105)
[2022-06-12] MEDS: ALBUMIN HUMAN 25% 25 GM/100 ML 100 ML IVPB (17:36)
--- NOTE | 2022-06-12 17:38 | PCRCNOTE ---
Window of time for administration has passed. See next scheduled administration.
[2022-06-12 18:25] LABS: Glucose Point of Care 145 mg/dl (65-105)
[2022-06-12 18:30] LABS: Anion Gap 8 mmol/L (8-16); Blood Urea Nitrogen 31 mg/dL (9-20); Calcium 8.1 mg/dL (8.4-10.2); Carbon Dioxide 23 mmol/L (22-30); Chloride 108 mmol/L (98-107); Estimated CRCL calculation 50 ml/min; Estimated Glomerular Filt Rate 53; Glucose 131 mg/dL (65-110); Potassium 3.6 mmol/L (3.4-5.0); Sodium 139 mmol/L (137-145)
--- NOTE | 2022-06-12 19:10 | PC.NURSE ---
Spoke with Dr. Bean regarding patient's insulin. Pt's blood glucose has been less than 180 since 1600 and GAP was closed at that time. New orders to administer 20u Lantus SQ now, stop insulin drip and all labs per protocol, resume moderate dose sliding scale and continue Q1HR accu-checks per hypothermia protocol.
[2022-06-12 19:19] LABS: Glucose Point of Care 131 mg/dl (65-105)
--- NOTE | 2022-06-12 19:20 | PC.NURSE ---
Yellow band removed from pt's left ring finger and given to pt's son to take home.
[2022-06-12] MEDS: INSULIN GLARGINE (*BKC) 100 UNITS/ML 20 UNITS SUB-Q (19:28)
[2022-06-12] MEDS: ALBUTEROL SULFATE NEB 2.5 MG/3 ML INH INHALATION (20:38)
[2022-06-12] MEDS: IPRATROPIUM BR 0.02% INH SOLN 0.5 MG/2.5 ML VIAL INHALATION (20:39)
[2022-06-12 20:54] LABS: Glucose Point of Care 135 mg/dl (65-105)
[2022-06-12 21:24] LABS: Glucose Point of Care 147 mg/dl (65-105)
[2022-06-12 22:23] LABS: Glucose Point of Care 145 mg/dl (65-105)
[2022-06-12 22:33] LABS: Creatine Kinase 457 U/L (55-170)
[2022-06-12 23:21] LABS: Glucose Point of Care 163 mg/dl (65-105)
[2022-06-13] VITALS (66 sets, daily range): BP systolic 82–112; BP diastolic 49–94; PULSE 60–83; RESP 18–28; TEMP 32.3–37.6; O2SAT 91–100
[2022-06-13] MEDS: ALBUMIN HUMAN 25% 25 GM/100 ML 100 ML IVPB ×3 (00:21→11:51)
[2022-06-13 00:37] LABS: Glucose Point of Care 177 mg/dl (65-105)
[2022-06-13 01:28] LABS: Glucose Point of Care 141 mg/dl (65-105)
[2022-06-13] MEDS: ALBUTEROL SULFATE NEB 2.5 MG/3 ML INH INHALATION ×4 (02:02→20:30)
[2022-06-13] MEDS: IPRATROPIUM BR 0.02% INH SOLN 0.5 MG/2.5 ML VIAL INHALATION ×4 (02:02→20:30)
[2022-06-13 02:25] LABS: Glucose Point of Care 146 mg/dl (65-105)
[2022-06-13 03:20] LABS: Glucose Point of Care 145 mg/dl (65-105)
[2022-06-13 04:32] LABS: Glucose Point of Care 140 mg/dl (65-105)
[2022-06-13 04:35] LABS: Basophils Percent Auto 0.2 % (0.2-1.2); Eosinophils Absolute Auto 0.1 K/mm3 (0-0.3); Eosinophils Percent Auto 1.4 % (0-4.4); Hematocrit 32.3 % (42.0-52.0); Hemoglobin 10.5 g/dL (14.0-18.0); Immature Granulocyte Absolute 0.07 K/mm3 (0.00-0.031); Immature Granulocyte Percent A 0.8 % (0-0.5); Lymphocytes Absolute Auto 0.64 K/mm3 (0.9-3.2); Lymphocytes Percent Auto 7.2 % (18.3-44.2); Mean Corpuscular HGB Conc 32.5 g/dl (32-36); Mean Corpuscular Hemoglobin 31.3 pg (26-34); Mean Corpuscular Volume 96.1 fl (80-100); Mean Platelet Volume 9.1 fl (7.4-10.4); Monocytes Absolute Auto 0.5 K/mm3 (0.1-0.6); Monocytes Percent Auto 5.7 % (2.6-8.5); Neutrophils Absolute Auto 7.5 K/mm3 (1.3-6.7); Neutrophils Percent Auto 84.7 % (45.5-73.1); Platelet Count Result 135 k/mm3 (150-375); Red Blood Count 3.36 M/mm3 (4.6-6.20); Red Cell Distribution Width 13.2 % (11.5-14.5); White Blood Count 8.8 K/mm3 (4.5-10.0)
[2022-06-13 04:44] LABS: Lactic Acid Reflex 1.1 mmol/L (0.7-2.0)
[2022-06-13 04:45] LABS: Alanine Aminotransferase 42 U/L (6-50); Albumin Level 3.3 g/dL (3.5-5.1); Alkaline Phosphatase 86 U/L (38-126); Anion Gap 9 mmol/L (8-16); Aspartate Amino Transferase 51 U/L (17-59); Bilirubin,Total 0.7 mg/dL (0.2-1.3); Blood Urea Nitrogen 29 mg/dL (9-20); Calcium 8.3 mg/dL (8.4-10.2); Carbon Dioxide 21 mmol/L (22-30); Chloride 110 mmol/L (98-107); Creatine Kinase 604 U/L (55-170); Estimated CRCL calculation 59 ml/min; Estimated Glomerular Filt Rate > 60; Glucose 131 mg/dL (65-110); Magnesium 1.9 mg/dL (1.6-2.3); Phosphorus 2.4 mg/dL (2.5-4.5); Potassium 3.2 mmol/L (3.4-5.0); Sodium 140 mmol/L (137-145)
[2022-06-13 04:56] LABS: Partial Thromboplastin Time 148.6 SECONDS (22.3-36.8)
[2022-06-13 05:25] LABS: Alveolar/Arterial O2 Gradient 124.3 mmHg; Base Excess ABG -3.5 mEq/l (+/-2.0); Carboxyhemoglobin 0.3 % THb (0-2.0); Fractional Inspired Oxygen 30 %; HCO3 ABG 19.1 mEq/l (22.0-26.0); Methemoglobin ABG 0.2 %THb (0-1.5); Oxygen Content ABG 15.4 %vol (16.0-22.0); Oxyhemoglobin 95.4 % THb (90.0-100.0); PCO2 ABG 27.4 mmHg (35.0-45.0); PO2 ABG 84.6 mmHg (80.0-100.0); PO2 FiO2 Ratio Arterial Blood 2.82 %; Reduced Hemoglobin 4.1 %THb (0-5.0); Total Hemoglobin 11.4 g/dL (12.0-18.0); pH ABG 7.462 (7.350-7.450)
[2022-06-13 05:26] LABS: Arterial Blood Gas PEEP 8 cmH2O; Arterial Blood Gas Tidal Volume 450 ml; Arterial Blood Gas Vent Mode CMV; Arterial Blood Gas Ventilator rate 22 /MIN; Device VENTILATOR; Modified Allen's Test Unable to perform; Site Drawn RIGHT RADIAL
[2022-06-13] MEDS: CENTRAL LINE FLUSH 10 ML IV PUSH ×3 (05:37→20:23)
[2022-06-13 05:41] LABS: Glucose Point of Care 117 mg/dl (65-105)
[2022-06-13 06:10] LABS: Glucose Point of Care 122 mg/dl (65-105)
[2022-06-13] MEDS: SODIUM CHLORIDE 0.9% IV 1,000 ML 50 ML IV CONT (07:02)
[2022-06-13] MEDS: hetaSTARCH 6%/NACL 500 ML 250 ML IV CONT (07:20)
[2022-06-13 07:30] LABS: Glucose Point of Care 127 mg/dl (65-105)
[2022-06-13] MEDS: MIDAZOLAM 100MG/NS 100ML(*CRX) 100 MG/100 ML BAG IV CONT (08:14)
[2022-06-13] MEDS: MINERAL OIL/WHITE PETROLATUM OINTMENT 1 APPLIC EACH EYE ×2 (08:17→20:23)
[2022-06-13] MEDS: PANTOPRAZOLE SODIUM IV 40 MG VIAL IV PUSH (08:17)
[2022-06-13] MEDS: POTASSIUM PHOS/SODIUM PHOS 250 MG TABLET PO (08:19)
[2022-06-13 08:23] LABS: Glucose Point of Care 128 mg/dl (65-105)
--- NOTE | 2022-06-13 08:39 | PCNSR ---
On 06/12/22, the student, Yonatan Carroll, provided care and completed [employer] [facility] on this patient. I have reviewed the student's documentation and agree with the findings.
--- NOTE | 2022-06-13 08:42 | WPDINTPN ---
Progress Note: A&P Assessment and Plan (1) Cardiac arrest with ventricular fibrillation: Code(s): I46.9 - Cardiac arrest, cause unspecified; I49.01 - Ventricular fibrillation Status: Acute Assessment and Plan: Patient presented with VFib arrest, ROSC within 15 minutes after EMS arrived and started CPR, (total down time was about 25 minutes.) -currently on targeted temperature management, will start rewarming him this morning. -elevated troponins likely related to cardiac arrest -patient is on heparin infusion possible NSTEMI, will discuss with Cardiology -appreciate cardiology evaluation -echocardiogram to be done on 06/13/2022 -patient may have hypoxic encephalopathy given extensive downtime (2) Acute respiratory failure with hypoxia: Code(s): J96.01 - Acute respiratory failure with hypoxia Status: Acute Assessment and Plan: Acute respiratory failure likely related to cardiac arrest -patient was intubated ED on 06/11/2022 -continue CMV mode of ventilation, peep of 8 in 30% FiO2, wean FiO2 to maintain O2 sats greater than 92% -currently on fentanyl and Versed for sedation -patient is shivering so added Nimbex -continue bronchodilators (3) Acute kidney injury: Code(s): N17.9 - Acute kidney failure, unspecified Status: Acute Assessment and Plan: Patient with acute kidney injury likely related cardiac arrest, diuretics -patient was given IV fluidin the ICU on 06/12 due to elevated lactic acid -creatinine back to normal at 1.10 -lactic acid this morning is 1.1 -continue to monitor renal function, electrolytes and urine output (4) DM type 2 (diabetes mellitus, type 2): Qualifiers: Diabetes mellitus complication status: without complication 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 (5) Nonischemic cardiomyopathy: Code(s): I42.8 - Other cardiomyopathies Status: Acute Assessment and Plan: Nausea nonischemic cardiomyopathy with EF of 20-25% on an echocardiogram done and 06/12/2021 -status post AICD -chest x-ray does not reveal significant pulmonary edema, will hold all diuresis at this time given decreased renal function and increase lactic acid -will cautiously hydrate patient Plan DVT prophylaxis: On heparin infusion Stress ulcer prophylaxis: IV Protonix Nutrition: Will start tube feeds today Code Status: Full code Critical Care Time Spent: 34 minutes Due to a high probability of clinically significant, life threatening deterioration, the patient required my highest level of preparedness to intervene emergently and I personally spent this critical care time directly and personally managing the patient. This critical care time included obtaining a history; examining the patient; pulse oximetry; ordering and review of studies; arranging urgent treatment with development of a management plan; evaluation of patient's response to treatment; frequent reassessment; and discussions with other providers. It was exclusive of separately billable procedures and treating other patients and teaching time. Please see Assessment and Plan section and the rest of the note for further information on patient assessment and treatment Subjective Date/time seen: 06/13/22 08:42 Interval history: Reason for consult: VFib cardiac arrest, acute respiratory failure, acute kidney injury, hyperglycemia 06/12/2022: Patient seen and examined the ICU, remains intubated on CMV mode of ventilation, peep of 8 and 30% FiO2. Patient is sedated with fentanyl, Versed infusion. He is als
[2022-06-13 09:03] LABS: Glucose Point of Care 121 mg/dl (65-105)
[2022-06-13 10:40] LABS: Lactic Acid Reflex 0.9 mmol/L (0.7-2.0)
[2022-06-13 10:41] LABS: Creatine Kinase 606 U/L (55-170)
--- NOTE | 2022-06-13 11:08 | PCFNICU ---
ICU Rounding Note: Pt current nutrition is NPO. Last recorded weight is 112.1 kg. Bowel Motility: no BM documented(PA gastrointestinal or I/O) Labs Reviewed: Hgb:10.5, Hct: 32.3, Alb:3.3, K:3.2, BUN:29, Glu:131 Meds Noted:norco, albutein, albuterol, dextrose, fentanyl, gulcagon, glutose, heparin, hespan, novolog, atrovent, versed, levohed, zofraan, protonix, definity, saline Skin: WNL Additional Notes: Pt on target temperature management. Per MD once pt is rewarm will titrate down sedation. Per MD will start tube feeding. Nutrition recommendation: Vital AF 1.2 @20ml/hr, advance by 10ml q4h till goal rate 60ml/hr and 30ml flushes q4h. Will provide 1716kcal, 99g protein and 1160ml fluid. Following daily in ICU rounds. follow up T/F monitor feeding tolerance, per policy gastric residual, wt and labs.
[2022-06-13 11:22] LABS: Glucose Point of Care 116 mg/dl (65-105)
--- NOTE | 2022-06-13 11:41 | PCNSR ---
On 06/13/22, the student, Yonatan Carroll, provided care and [facility]. I have reviewed the student's documentation and agree with the findings.
[2022-06-13 11:45] LABS: Partial Thromboplastin Time 60.3 SECONDS (22.3-36.8)
[2022-06-13] MEDS: HEPARIN SODIUM 5,000 UNITS/ML VIAL 3500 UNITS IV PUSH ×2 (11:51→18:21)
[2022-06-13] MEDS: HEPARIN SOD/D5W 100 UNITS/ML 25,000 UNITS/250 ML BAG 6 UNITS IV CONT (12:03)
[2022-06-13 12:05] LABS: Glucose Point of Care 105 mg/dl (65-105)
--- NOTE | 2022-06-13 12:21 | PM.PNCARD ---
Progress Note: A&P Assessment and Plan (1) Cardiac arrest with ventricular fibrillation: Code(s): I46.9 - Cardiac arrest, cause unspecified; I49.01 - Ventricular fibrillation Status: Acute Assessment and Plan: Patient has suffered a VFib arrest and was appropriately defibrillated by his ICD.? However then he suffered a PEA arrest requiring CPR. Currently intubated and sedated in the ICU. Now in the rewarming phase of the cooling protocol. Initially hypotensive, supported with epinephrine, resolved. Initially bradycardic, ICD reprogrammed for a backup rate of 60, improved.? This is a single lead pacemaker but a Biotronik lead that has atrial sensing electrodes. May have hypoxic encephalopathy. Continue supportive care. (2) Acute on chronic systolic CHF (congestive heart failure): Code(s): I50.23 - Acute on chronic systolic (congestive) heart failure Status: Acute Assessment and Plan: History of nonischemic cardiomyopathy, EF 25-30%. Echo when patient is off his cooling protocol Received 1 dose of IV Lasix in the emergency room; CXR improved. Resume heart failure medications when blood pressure stable Daily BMP (3) Presence of combination internal cardiac defibrillator (ICD) and pacemaker: Code(s): Z95.810 - Presence of automatic (implantable) cardiac defibrillator Status: Acute Assessment and Plan: Biotronik ICD single lead ICD with atrial sensing electrodes History of V-tach, on chronic amiodarone; resume when patient does not appear bradycardic Appropriate ICD discharge yesterday evening for VFib No recurrent ventricular arrhythmias since admission. At some point will reprogrammed the ICD to a backup VVI,? rate of 40. (4) Paroxysmal atrial flutter: Code(s): I48.92 - Unspecified atrial flutter Status: Acute Assessment and Plan: History of paroxysmal atrial flutter, on Eliquis. None seen this admission Currently on a heparin drip Time Spent With Patient Time with patient: 15 - 25 minutes Subjective Date/time seen: 06/13/22 12:21 Interval history: Reason for visit: Cardiac arrest Kenny Sears? is a 77-year-old male? whom I was asked to see at the request of Dr. Wheeler for my advice and opinion regarding his cardiac arrest, in consultation.? ? He has a history of a nonischemic cardiomyopathy with his EF being 25-30% a couple years ago. chronic anticoagulation for paroxysmal atrial flutter, hypertension, CHF, CKD, moderate aortic stenosis. Mr. Schneider is followed by Dr. Tolentino for his nonischemic cardiomyopathy.? He has a history of a Biotronik ICD.? He has a history of a V. tach storm apparently a few years ago , but no recent problems with arrhythmias taking metoprolol and amiodarone. The patient was in his normal state of health until? last night when he was watching TV and did not feel well.? He was reaching for his blood pressure cuff then became unresponsive.? His apparently noted some jerking movements and it appeared that his ICD had delivered a shock.? The police department arrived and started CPR (AED advised no shock) and when EMS arrived at 8:25 p.m. he was in a PEA arrest.? He received 2 doses of epi and had return of spontaneous circulation and CPR was discontinued at 8:40 p.m.? He was transferred to the ER.? He was started on an epinephrine drip for bradycardia and hypotension.? ? He was intubated in the emergency room.? His ICD was interrogated and showed that he had an episode of polymorphic V-tach/ VFib with an appropriate ICD discharge at 8:23 p.m. last night , converting him to AV paced rhythm.? Because of his bradycardia I recommended his backup pacing rate be increased to 60 beats per minute and the device was reprogrammed.? In the emergency room he was not waking up and appeared to be posturing. ?The patient is now in the ICU, on a vent with an FiO2 of 40%, and sedated.? The epinephrine has been weaned off and his blood pressure i
[2022-06-13] MEDS: LACTATED RINGERS 1,000 ML 500 ML IV CONT (12:36)
[2022-06-13 13:00] LABS: Glucose Point of Care 119 mg/dl (65-105)
--- NOTE | 2022-06-13 13:50 | PC.NURSE ---
1215: Notified Dr. Koehler of patient's urine output being less than 30ml within an hour (output of 17ml). Dr. Koehler stated I will look into the labs and patient chart and put some orders in. 1225: New order for 1L LR IV @ 500ml/hr. 1300: Notified Dr. Koehler of urine output of 20ml. No new orders at this time
[2022-06-13 14:25] LABS: Glucose Point of Care 122 mg/dl (65-105)
[2022-06-13 15:12] LABS: Glucose Point of Care 149 mg/dl (65-105)
--- NOTE | 2022-06-13 15:16 | PC.NURSE ---
Notified Dr. Koehler of urine output of 26 ml/hr. No new orders at this time
[2022-06-13 16:56] LABS: Glucose Point of Care 141 mg/dl (65-105)
--- NOTE | 2022-06-13 17:23 | PM.IMPN ---
Progress Note: A&P Assessment and Plan (1) Paroxysmal atrial flutter: Code(s): I48.92 - Unspecified atrial flutter Status: Acute (2) Acute on chronic systolic CHF (congestive heart failure): Code(s): I50.23 - Acute on chronic systolic (congestive) heart failure Status: Acute (3) Acute kidney injury: Code(s): N17.9 - Acute kidney failure, unspecified Status: Acute (4) Cardiac arrest with ventricular fibrillation: Code(s): I46.9 - Cardiac arrest, cause unspecified; I49.01 - Ventricular fibrillation Status: Acute (5) Respiratory failure: Code(s): J96.90 - Respiratory failure, unspecified, unspecified whether with hypoxia or hypercapnia Status: Acute (6) Pulmonary edema: Code(s): J81.1 - Chronic pulmonary edema Status: Acute (7) Non-ST elevated myocardial infarction: Code(s): I21.4 - Non-ST elevation (NSTEMI) myocardial infarction Status: Acute (8) Acute respiratory failure with hypoxia: Code(s): J96.01 - Acute respiratory failure with hypoxia Status: Acute (9) Cardiac arrest due to underlying cardiac condition: Code(s): I46.2 - Cardiac arrest due to underlying cardiac condition Status: Acute (10) Abdominal aortic aneurysm (AAA) without rupture: Code(s): I71.4 - Abdominal aortic aneurysm, without rupture Status: Acute (11) Presence of combination internal cardiac defibrillator (ICD) and pacemaker: Code(s): Z95.810 - Presence of automatic (implantable) cardiac defibrillator Status: Acute (12) BMI 38.0-38.9,adult: Code(s): Z68.38 - Body mass index [BMI] 38.0-38.9, adult Status: Acute (13) Hyperlipidemia associated with type 2 diabetes mellitus: Code(s): E11.69 - Type 2 diabetes mellitus with other specified complication; E78.5 - Hyperlipidemia, unspecified Status: Acute Plan 06/12/22 ?patient is undergoing cooling protocol ?continue supportive care ?cardiology consult ?currently on ventilator support ?likely secondary to cardiac arrest ?device interrogation ?continue home meds ?patient on statin ?Accu-Cheks? 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 Review of Systems Review of Systems: ROS unobtainable: Yes unobtainable due to endotracheal tube Exam Narrative: GEN: NAD, intubated and sedated HEENT: NCAT, MMM Neck: no JVD Heart: IRR Lungs: symmetric chest rise aerating well Ext: edema Objective Data Vital Signs Vital Signs: Vital Signs - 24 hr 06/12/22 17:40 06/12/22 18:17 06/12/22 18:18 Temperature Pulse Rate 60 Respiratory Rate 23 H Blood Pressure 108/80 120/57 L Pulse Oximetry Oxygen Delivery Fraction of Inspired Oxygen 06/12/22 18:18 06/12/22 18:19 06/12/22 18:00 Temperature 91.7 F L Pulse Rate 60 60 60 Respiratory Rate 23 H 23 H Blood Pressure 102/57 L 109/76 Pulse Oximetry 100 Oxygen Delivery Fraction of Inspired Oxygen 06/12/22 18:00 06/12/22 19:00 06/12/22 19:38 Temperature 93.1 F L Pulse Rate 60 60 60 Respiratory Rate 22 H 22 H Blood Pressure 122/77 Pulse Oximetry 99 Oxygen Delivery Fraction of Inspired Oxygen 06/12/22 19:38 06/12/22 19:38 06/12/22 20:00 Temperature 92.8 F L Pulse Rate 60 60 Respiratory Rate 22 H 22 H 22 H Blood Pressure 121/77 120/79 Pulse Oximetry 100 Oxygen Delivery Fraction of Inspired Oxygen 06/12/22 20:00 06/12/22 21:00 06/12/22 20:39 Temperature 91.8 F L Pulse Rate 60 62 Respiratory Rate 22 H 22
[2022-06-13 18:14] LABS: Partial Thromboplastin Time 62.1 SECONDS (22.3-36.8)
[2022-06-13 18:16] LABS: Creatine Kinase 442 U/L (55-170); Lactic Acid Reflex 1.1 mmol/L (0.7-2.0)
[2022-06-13] MEDS: INSULIN GLARGINE (*BKC) 100 UNITS/ML 20 UNITS SUB-Q (20:23)
[2022-06-13 20:33] LABS: Glucose Point of Care 138 mg/dl (65-105)
[2022-06-14] VITALS (52 sets, daily range): BP systolic 84–134; BP diastolic 43–75; PULSE 60–98; RESP 16–30; TEMP 37.1–38.1; O2SAT 91–96
[2022-06-14 00:36] LABS: Glucose Point of Care 138 mg/dl (65-105)
[2022-06-14 00:55] LABS: Partial Thromboplastin Time 98.4 SECONDS (22.3-36.8)
[2022-06-14] MEDS: ALBUTEROL SULFATE NEB 2.5 MG/3 ML INH INHALATION ×4 (02:00→21:20)
[2022-06-14] MEDS: IPRATROPIUM BR 0.02% INH SOLN 0.5 MG/2.5 ML VIAL INHALATION ×4 (02:00→21:20)
[2022-06-14] MEDS: SODIUM CHLORIDE 0.9% IV 1,000 ML 50 ML IV CONT ×2 (02:59→20:36)
--- NOTE | 2022-06-14 03:35 | ECHO_ITS ---
Patient Info Name: Kenny Schneider Age: 77 years : 1945 Gender: Male Ht: 67 in Wt: 266 lbs BSA: 2.45 m2 HR: 76 bpm BP: 91 / 45 mmHg Heart Rhythm: Sinus Rhythm Technical Quality: Poor Exam Date: 06/14/2022 8:55 AM Exam Location: [facility] Pulmonary Patient Status: Inpatient Admit Date: 06/11/2022 Staff Ordering Physician: Kerri Perez MD Invas Tech: Anel Kelly RDCS Attending Provider: Dusty Jiménez MD Referring Physician: Chris TRACY; Exam Type: CA echo dop color flow w con Study Info Indications - V FIB ARREST ACID FIRING Complete two-dimensional, color flow and Doppler transthoracic echocardiogram is performed with contrast to opacify the left ventricle and to improve the deliniation of the left ventricle endocardial borders. Contrast/Agitated Saline Contrast/Ag. Saline: Definity Amount: 3.00 ml Administered By: Anel Kelly RDCS Existing IV Access: Yes IV Access Condition: patent with no signs of infiltration Summary 1. Left ventricular chamber dimension is severely enlarged. 2. Left ventricular systolic function is severely reduced, estimated at 25-30%. 3. There is mild aortic valve sclerosis. 4. There is trace mitral valve regurgitation. 5. Left atrial chamber dimension is mildly enlarged. Left Ventricle Left ventricular chamber dimension is severely enlarged. Left ventricular systolic function is severely reduced, estimated at 25-30%. The left ventricular diastolic function is grade I diastolic dysfunction. Right Ventricle Right ventricular chamber dimension is normal. Linear artifact in right ventricle suggestive of catheter(s), pacemaker lead(s), or ICD lead(s). Left Atria Left atrial chamber dimension is mildly enlarged. Right Atria Right atrial chamber dimension is mildly enlarged. Aortic Valve The aortic valve is trileaflet. There is mild aortic valve sclerosis. Pulmonic Valve The pulmonic valve is not well visualized. Mitral Valve The mitral valve has normal leaflets. There is trace mitral valve regurgitation. Tricuspid Valve The tricuspid valve leaflets are normal. Pericardium/Pleural The pericardium appears normal. Aorta The aortic root size at the sinus of Valsalva is normal. Left Ventricular Outflow Tract Name Value Normal LVOT 2D LVOT Diameter 2.71 cm LVOT Doppler LVOT Peak Gradient 4 mmHg LVOT Mean Gradient 3 mmHg LVOT VTI 20.12 cm LVOT VTI/AV VTI Ratio 0.46 LVOT Stroke Volume 116.00 ml LVOT CO 7.59 l/min LVOT CI 3.10 L/min/m2 Pulmonic Valve Name Value Normal RVOT Doppler RVOT Peak Gradient
[2022-06-14 04:41] LABS: Glucose Point of Care 152 mg/dl (65-105)
[2022-06-14] MEDS: NOREPINEPHRINE 8 MG/D5W 250 ML 8 MG/250 ML BAG 9.38 MG IV CONT (05:21)
[2022-06-14 05:53] LABS: Alveolar/Arterial O2 Gradient 99.3 mmHg; Arterial Blood Gas PEEP 8 cmH2O; Arterial Blood Gas Tidal Volume 450 ml; Arterial Blood Gas Vent Mode CMV; Arterial Blood Gas Ventilator rate 22 /MIN; Base Excess ABG -2.5 mEq/l (+/-2.0); Carboxyhemoglobin 0.3 % THb (0-2.0); Device VENTILATOR; Fractional Inspired Oxygen 30 %; HCO3 ABG 22.1 mEq/l (22.0-26.0); Methemoglobin ABG 0.4 %THb (0-1.5); Modified Allen's Test Unable to perform; Oxygen Content ABG 15.8 %vol (16.0-22.0); Oxygen Saturation ABG 94.3 % (95.0-100.0); Oxyhemoglobin 93.1 % THb (90.0-100.0); PCO2 ABG 37.2 mmHg (35.0-45.0); PO2 ABG 70.9 mmHg (80.0-100.0); PO2 FiO2 Ratio Arterial Blood 2.36 %; Reduced Hemoglobin 6.2 %THb (0-5.0); Site Drawn RIGHT RADIAL; pH ABG 7.391 (7.350-7.450)
[2022-06-14] MEDS: CENTRAL LINE FLUSH 10 ML IV PUSH ×3 (06:27→20:36)
[2022-06-14 06:51] LABS: Basophils Percent Auto 0.2 % (0.2-1.2); Eosinophils Absolute Auto 0.1 K/mm3 (0-0.3); Eosinophils Percent Auto 1.5 % (0-4.4); Hematocrit 30.6 % (42.0-52.0); Hemoglobin 9.7 g/dL (14.0-18.0); Immature Granulocyte Absolute 0.06 K/mm3 (0.00-0.031); Immature Granulocyte Percent A 0.7 % (0-0.5); Lymphocytes Absolute Auto 0.29 K/mm3 (0.9-3.2); Lymphocytes Percent Auto 3.3 % (18.3-44.2); Mean Corpuscular HGB Conc 31.7 g/dl (32-36); Mean Corpuscular Hemoglobin 31.4 pg (26-34); Mean Platelet Volume 9.8 fl (7.4-10.4); Monocytes Absolute Auto 0.5 K/mm3 (0.1-0.6); Monocytes Percent Auto 6.1 % (2.6-8.5); Neutrophils Absolute Auto 7.7 K/mm3 (1.3-6.7); Neutrophils Percent Auto 88.2 % (45.5-73.1); Platelet Count Result 138 k/mm3 (150-375); Red Blood Count 3.09 M/mm3 (4.6-6.20); Red Cell Distribution Width 13.7 % (11.5-14.5); White Blood Count 8.7 K/mm3 (4.5-10.0)
[2022-06-14 06:59] LABS: Partial Thromboplastin Time 77.7 SECONDS (22.3-36.8)
[2022-06-14 07:06] LABS: Alanine Aminotransferase 40 U/L (6-50); Albumin Level 3.2 g/dL (3.5-5.1); Alkaline Phosphatase 68 U/L (38-126); Anion Gap 8 mmol/L (8-16); Aspartate Amino Transferase 68 U/L (17-59); Bilirubin,Total 0.6 mg/dL (0.2-1.3); Blood Urea Nitrogen 25 mg/dL (9-20); Carbon Dioxide 22 mmol/L (22-30); Chloride 111 mmol/L (98-107); Estimated CRCL calculation 49 ml/min; Estimated Glomerular Filt Rate 53; Glucose 179 mg/dL (65-110); Magnesium 1.7 mg/dL (1.6-2.3); Phosphorus 2.9 mg/dL (2.5-4.5); Potassium 3.7 mmol/L (3.4-5.0); Sodium 141 mmol/L (137-145)
[2022-06-14] MEDS: AMPICILLIN SULB 3 GM/NS 100 ML 3 GM/100 ML VIAL IVPB ×3 (08:00→17:40)
[2022-06-14] MEDS: PANTOPRAZOLE SODIUM IV 40 MG VIAL IV PUSH (08:01)
[2022-06-14] MEDS: MINERAL OIL/WHITE PETROLATUM OINTMENT 1 APPLIC EACH EYE ×2 (08:01→20:36)
[2022-06-14 08:04] LABS: Glucose Point of Care 167 mg/dl (65-105)
--- NOTE | 2022-06-14 09:23 | IVDEFINITY ---
Prior to administration of IV Definity the patient was educated on the risks and benefits of the imaging enhancing agent including potential adverse side effects. The patient verbalized understanding. Allergies were verified. No exclusion criteria were identified and at least one of the following inclusion criteria were met: 1) physician request, 2) patient technically difficult to image (per the [place] [employer] guidelines of two or more segments not discernable within the apical view), or 3) questionable left ventricular function. ?
--- NOTE | 2022-06-14 09:25 | PM.PNCARD ---
Progress Note: A&P Assessment and Plan (1) Cardiac arrest with ventricular fibrillation: Code(s): I46.9 - Cardiac arrest, cause unspecified; I49.01 - Ventricular fibrillation Status: Acute Plan patient has severe dilated nonischemic cardiomyopathy unfortunately despite defibrillator in amiodarone treatment has had a lethal ventricular arrhythmia which was resuscitated following which she likely will have significant anoxic brain injury. Vital signs and oxygenation are favorable and he is no longer cooled and off sedation. No meaningful neurological responsiveness today. Appears to have a poor prognosis discussed with family in the room Ramakrishna Tolentino MD FAC Subjective Date/time seen: Date of service:06/14/22 09:25 Interval history: Follow-up visit in this 77-year-old man with: Longstanding nonischemic cardiomyopathy presenting to the hospital following out of hospital cardiac arrest with VT/VFib and appropriate response of his defibrillator. Despite this he was without a pulse for approximately 25 minutes at least. Patient is still intubated on the ventilator in the ICU he is re warmed and off sedation Review of Systems Review of Systems: ROS unobtainable: Yes unobtainable due to endotracheal tube and unobtainable due to mental status Exam Const: Other: obese elderly man sedated unresponsive on ventilator support HENMT: Mouth: Yes moist mucous membranes Eyes: Sclera: sclerae normal Neck: Other: unable to assess JVD given his obesity /normal carotid pulses Resp: Other: few central rhonchi noted Cardio: Rate: regular rate Rhythm: regular rhythm GI: GI Palp: Yes Soft to palpation Auscultation: normal bowel sounds Skin: General skin exam: normal color Neuro: Other: unresponsive Objective Data Vital Signs Vital Signs: Vital Signs - 24 hr 06/13/22 09:34 06/13/22 09:39 06/13/22 09:41 Temperature Pulse Rate 60 61 60 Respiratory Rate 22 H 22 H Blood Pressure Pulse Oximetry 97 Oxygen Delivery Mechanical Ventilation Fraction of Inspired Oxygen 30 06/13/22 10:00 06/13/22 10:21 06/13/22 10:04 Temperature 33.8 C L Pulse Rate 60 60 Respiratory Rate 22 H 22 H Blood Pressure 96/60 L 86/57 L 96/60 L Pulse Oximetry 96 Oxygen Delivery Fraction of Inspired Oxygen 06/13/22 10:05 06/13/22 10:05 06/13/22 10:00 Temperature Pulse Rate 60 60 60 Respiratory Rate 23 H 23 H Blood Pressure Pulse Oximetry Oxygen Delivery Fraction of Inspired Oxygen 06/13/22 10:30 06/13/22 11:00 06/13/22 11:45 Temperature 34.6 C L Pulse Rate 60 Respiratory Rate 22 H Blood Pressure 97/57 L 100/78 82/53 L Pulse Oximetry 94 Oxygen Delivery Fraction of Inspired Oxygen 06/13/22 12:03 06/13/22 12:04 06/13/22 12:00 Temperature 34.6 C L Pulse Rate 60 60 60 Respiratory Rate 23 H 23 H 22 H Blood Pressure 86/58 L Pulse Oximetry 96 Oxygen Delivery Fraction of Inspired Oxygen 06/13/22 12:05 06/13/22 12:05 06/13/22 12:00 Temperature Pulse Rate 60 Respiratory Rate Blood Pressure 94/55 L Pulse Oximetry 95 Oxygen Delivery Mechanical Ventilation Fraction of Inspired Oxygen 30 30 06/13/22 12:54 06/13/22 12:00 06/13/22 12:00 Temperature 34.7 C L Pulse Rate 60 60 Respiratory Rate 22 H Blood Pressure 101/61 Pulse Oximetry 95 95 Oxygen Delivery Mechanical Ventilation Fraction of Inspired Oxygen 30 06/13/22 14:00 06/13/22 14:17 06/13/22 14:17 Temperature 35.8 C L Pulse Rate 62 61 Respiratory Rate 22 H 22 H Blood Pressure 93/61 L 102/61 Pulse Oximetry 92 Oxygen Delivery Fraction of Inspired Oxygen 06/13/22 14:18 06/13/22 14:00 06/13/22 15:00 Temperature 36.5 C Pulse Rate 60 60 64 Respiratory Rate 22 H 22 H Blood Pressure 98/55 L Pulse Oximetry 92 Oxygen Delivery Fraction of Inspired Oxygen 06/13/22 15:21 06/13/22 15:25 06/13/22 15:3
[2022-06-14] MEDS: PERFLUTREN LIPID MICROSPHERES 1.5 ML VIAL DILUTED TO 10 ML TOTAL VOLUME IV PUSH (09:30)
--- NOTE | 2022-06-14 09:35 | WPDINTPN ---
Progress Note: A&P Assessment and Plan (1) Cardiac arrest with ventricular fibrillation: Code(s): I46.9 - Cardiac arrest, cause unspecified; I49.01 - Ventricular fibrillation Status: Acute Assessment and Plan: Patient presented with VFib arrest, ROSC within 15 minutes after EMS arrived and started CPR, (total down time was about 25 minutes.) -patient status post target temperature management, rewarmed to normal body temperature. -elevated troponins likely related to cardiac arrest -patient on heparin, discussed with Cardiology will discontinue -appreciate cardiology evaluation -echocardiogram to be done on 06/14/2022, pending report -patient may have hypoxic encephalopathy given extensive downtime -will discontinue sedation to evaluate neurological function -will consult neurology (2) Acute respiratory failure with hypoxia: Code(s): J96.01 - Acute respiratory failure with hypoxia Status: Acute Assessment and Plan: Acute respiratory failure likely related to cardiac arrest -patient was intubated ED on 06/11/2022 -continue CMV mode of ventilation, peep of 8 in 30% FiO2, wean FiO2 to maintain O2 sats greater than 92% -currently on fentanyl and Versed for sedation -patient is shivering so added Nimbex -continue bronchodilators (3) Acute kidney injury: Code(s): N17.9 - Acute kidney failure, unspecified Status: Acute Assessment and Plan: Patient with acute kidney injury likely related cardiac arrest, diuretics -patient was given IV fluidin the ICU on 06/12 due to elevated lactic acid -creatinine back to normal at 1.30 -lactic acid this morning is 1.1 -continue to monitor renal function, electrolytes and urine output (4) DM type 2 (diabetes mellitus, type 2): Qualifiers: Diabetes mellitus complication status: without complication Diabetes mellitus detention insulin use: without long distance operator use Qualified Code(s): E11.9 - Type 2 diabetes mellitus without complications Code(s): E11.9 - Type 2 diabetes mellitus without complications Status: Acute Assessment and Plan: Has been hyperglycemic, started on insulin infusion for appropriate blood sugar control -patient was transition to Lantus overnight with moderate dose sliding scale -continue Lantus q.h.s. (5) Nonischemic cardiomyopathy: Code(s): I42.8 - Other cardiomyopathies Status: Acute Assessment and Plan: Nausea nonischemic cardiomyopathy with EF of 20-25% on an echocardiogram done and 06/12/2021 -status post AICD -chest x-ray does not reveal significant pulmonary edema, will hold all diuresis at this time given decreased renal function and increase lactic acid -will cautiously hydrate patient Plan DVT prophylaxis: Stop heparin infusion, will switch to prophylactic loving Stress ulcer prophylaxis: IV Protonix Nutrition: Continue tube feeds Discussed with patient's brother and updated him with patient's condition and plan of care. I answered all questions Code Status: Full code Critical Care Time Spent: 34 minutes Due to a high probability of clinically significant, life threatening deterioration, the patient required my highest level of preparedness to intervene emergently and I personally spent this critical care time directly and personally managing the patient. This critical care time included obtaining a history; examining the patient; pulse oximetry; ordering and review of studies; arranging urgent treatment with development of a management plan; evaluation of patient's response to treatment; frequent reassessment; and discussions with other providers. It was exclusive of separately billable procedures and treating other patients and teaching time. Please see Assessment and Plan section and the rest of the note for further information on patient assessment and treatment Subjective Date/time seen: 06/14/22 09:35 Interval history: Reason for consult: VFib cardiac arrest, a
--- NOTE | 2022-06-14 11:33 | PCNFU ---
Nutrition Follow-Up Complete: decreased nutrient needs related to NPO status as evidence by diet order Meet estimated energy needs through TF Goal: Goal not met. continue original goal. Pt current nutrition is tube feeding Vital AF 1.2. Last recorded weight is 109.4 kg. Bowel Motility: none documented in I/O and PA gastrointestinal Labs Reviewed:Hgb: 9.7, Hct: 30.6, Alb: 3.2, GFR: 53, BUN: 25, Glu: 179 Meds Noted:albuterol, unsyn (antibiotic), dextrose, lovenox, , glucagon, glutose, novolog, , atrovent, reglan, lubrifresh, levophed, zofran, protonix, definity, normal saline Skin: WNL, warm Additional Notes: Pt rewarmed through target temp management. Per MD sedation was turned off, pt opens eyes, responds to pain, but does not follow command. Tube feeding was was poorly tolerated with high gastric residuals. Tube feeding resumed again Vital AF 1.2at 20ml/hr. Recommendation: increase pt tube feeding 10ml as pt's tolerance improves and 30ml flushes q4h. Goal rate 65ml/hr, provides 1716kcal(1684kcal), 99g(80-94g) protein, and 1160ml fluid with 30ml flushes q4h and saline 50ml/hr (estimated: 2000ml). Pt is meeting 101% of kcal, 105% of protein 1340ml. Agree with current diet order: Pt is meeting estimated needs. has started Reglan to improve tube feeding tolerance. follow up T/F monitor feeding tolerance, per policy gastric residual, wt and labs
[2022-06-14] MEDS: METOCLOPRAMIDE HCL INJ 10 MG/2 ML VIAL IV PUSH ×2 (12:18→17:40)
[2022-06-14 12:20] LABS: Glucose Point of Care 164 mg/dl (65-105)
--- NOTE | 2022-06-14 13:27 | PCNSR ---
On 06/14/22, the student,Yonatan Carroll, provided care and completed [facility] documentation on this patient. I have reviewed the student's documentation and agree with the findings.
[2022-06-14] MEDS: NOREPINEPHRINE 8 MG/D5W 250 ML 8 MG/250 ML BAG 13.13 MG IV CONT (13:28)
--- NOTE | 2022-06-14 13:34 | WPDNEURCNPN ---
Assessment and Plan Assessment and plan (1) Paroxysmal atrial flutter: Code(s): I48.92 - Unspecified atrial flutter Status: Acute (2) Cardiac arrest with ventricular fibrillation: Code(s): I46.9 - Cardiac arrest, cause unspecified; I49.01 - Ventricular fibrillation Status: Acute (3) Respiratory failure: Code(s): J96.90 - Respiratory failure, unspecified, unspecified whether with hypoxia or hypercapnia Status: Acute (4) Hypoxic ischemic encephalopathy: Code(s): P91.60 - Hypoxic ischemic encephalopathy [HIE], unspecified Status: Acute Plan while the medical treatment is being continued as such we will obtain the EEG to evaluate the brain function and further recommendation according Consult date: 06/14/22 HPI: Kenny Schneider is a 77 year old male admitted to the hospital through the emergency room subsequent to having had cardiopulmonary arrest in the field reportedly was sitting watching TV and began to see he did not feel right and started having jerking movements and subsequently became dark PD arrived in attempted CPR EMS arrived he did receive 2 doses of epinephrine as well as CPR when he was found to have spontaneous circulation as per the there were no other abnormalities over the last several days and had been acting normal. his medications included rivaroxaban 20 mg daily amiodarone 200 mg daily with metoprolol 25 mg daily also spironolactone 25 mg daily, past history is consistent with the atrial flutter, attention, cardiac arrest in 2013 ventricular fibrillation, congestive heart failure, chronic anticoagulation therapy, chronic kidney disease, in addition to nonischemic cardiomyopathy and history of implantable cardioverter-defibrillator insert, not a smoker nor drinker Review of Systems Review of Systems: All systems reviewed & are unremarkable except as noted in HPI and below [facility] Past Medical History Medical History (Updated 06/14/22 @ 13:43 by Mahesh Fernandez MD) Abscess Atrial flutter Benign essential hypertension Bilateral cataracts BMI 38.0-38.9,adult Bronchitis Cardiac arrest with ventricular fibrillation (2013) CHF (congestive heart failure) Chronic anticoagulation CKD (chronic kidney disease) Cough Elevated serum creatinine Encounter for Medicare annual wellness exam History of colon polyps (Unknown) Hyperlipidemia Hypertension Hypotension Impacted cerumen of left ear Nonischemic cardiomyopathy Echocardiogram in March 2021 showed severe LV systolic dysfunction with an EF of 25 to 30%. Otitis of left ear Paroxysmal atrial flutter Pyogenic granuloma Vitamin D deficiency Surgical History Surgical History History of cholecystectomy History of implantable cardioverter-defibrillator (ICD) insertion History of open reduction and internal fixation (ORIF) procedure Bilateral lower extremity fractures. History of total right knee replacement S/P cataract surgery Family History Family History Father Family history of heart disease in male family member before age 55 Family history of cardiovascular disease Mother Family history of heart disease in male family member before age 55 Family history of cardiovascular disease Sibling Colon cancer Social History Social History (Updated 05/31/22 @ 10:18 by Holly Perez [facility]) Social History: Surrogate decision maker: Delaney Schneider, . Code status: Full code. Smoking status: Never smoker Second hand tobacco smoke exposure: No Alcohol intake: never Substance use: never Substance use type: does not use Has the Lack of Transportation Kept You From Medical Appointments or From Getting Medications?: No Within the Past 12 Months, Were You Worried Whether Your Food Would Run Out Before You Got Money to Buy More?: Never True What is Your Housing Situation Today?: I Have Housing
[2022-06-14] MEDS: dexmedeTOMIDine 400 MCG/100 ML 400 MCG/100 ML BAG 5.47 MCG IV CONT (15:42)
[2022-06-14] MEDS: INSULIN ASPART (*BKC) 100 UNITS/ML SUB-Q ×2 (16:06→20:35)
[2022-06-14 16:25] LABS: Glucose Point of Care 216 mg/dl (65-105)
[2022-06-14] MEDS: INSULIN GLARGINE (*BKC) 100 UNITS/ML 20 UNITS SUB-Q (20:35)
[2022-06-14 21:18] LABS: Glucose Point of Care 219 mg/dl (65-105)
[2022-06-15] VITALS (108 sets, daily range): BP systolic 81–148; BP diastolic 48–104; PULSE 59–110; RESP 17–34; TEMP 37.1–38.2; O2SAT 80–100
[2022-06-15 00:23] LABS: Glucose Point of Care 222 mg/dl (65-105)
[2022-06-15] MEDS: METOCLOPRAMIDE HCL INJ 10 MG/2 ML VIAL IV PUSH ×4 (00:39→17:13)
[2022-06-15] MEDS: AMPICILLIN SULB 3 GM/NS 100 ML 3 GM/100 ML VIAL IVPB ×4 (00:39→17:11)
[2022-06-15] MEDS: INSULIN ASPART (*BKC) 100 UNITS/ML SUB-Q ×4 (00:40→17:13)
[2022-06-15] MEDS: ALBUTEROL SULFATE NEB 2.5 MG/3 ML INH INHALATION ×4 (02:48→20:33)
[2022-06-15] MEDS: IPRATROPIUM BR 0.02% INH SOLN 0.5 MG/2.5 ML VIAL INHALATION ×4 (02:48→20:33)
[2022-06-15] MEDS: dexmedeTOMIDine 400 MCG/100 ML 400 MCG/100 ML BAG 10.94 MCG IV CONT ×2 (04:40→09:37)
[2022-06-15] MEDS: CENTRAL LINE FLUSH 10 ML IV PUSH ×3 (04:44→21:23)
[2022-06-15 04:53] LABS: Alveolar/Arterial O2 Gradient 79.5 mmHg; Base Excess ABG -2.1 mEq/l (+/-2.0); Carboxyhemoglobin 0.8 % THb (0-2.0); Fractional Inspired Oxygen 30 %; HCO3 ABG 21.7 mEq/l (22.0-26.0); Methemoglobin ABG 0.2 %THb (0-1.5); Oxygen Content ABG 17.5 %vol (16.0-22.0); Oxygen Saturation ABG 97.4 % (95.0-100.0); Oxyhemoglobin 96.1 % THb (90.0-100.0); PCO2 ABG 34.4 mmHg (35.0-45.0); PO2 FiO2 Ratio Arterial Blood 3.13 %; Reduced Hemoglobin 2.9 %THb (0-5.0); Total Hemoglobin 12.9 g/dL (12.0-18.0); pH ABG 7.418 (7.350-7.450)
[2022-06-15 04:57] LABS: Modified Allen's Test Pass; Site Drawn LEFT RADIAL
[2022-06-15 04:58] LABS: Arterial Blood Gas PEEP 8 cmH2O; Arterial Blood Gas Tidal Volume 450 ml; Arterial Blood Gas Vent Mode CMV; Arterial Blood Gas Ventilator rate 22 /MIN; Device VENTILATOR
[2022-06-15] MEDS: NOREPINEPHRINE 8 MG/D5W 250 ML 8 MG/250 ML BAG 11.25 MG IV CONT (05:50)
[2022-06-15 06:44] LABS: Basophils Absolute Auto 0.1 K/mm3 (0.0-0.1); Basophils Percent Auto 0.5 % (0.2-1.2); Eosinophils Absolute Auto 0.2 K/mm3 (0-0.3); Eosinophils Percent Auto 2.4 % (0-4.4); Hematocrit 31.8 % (42.0-52.0); Immature Granulocyte Absolute 0.09 K/mm3 (0.00-0.031); Lymphocytes Absolute Auto 0.53 K/mm3 (0.9-3.2); Lymphocytes Percent Auto 5.8 % (18.3-44.2); Mean Corpuscular HGB Conc 31.4 g/dl (32-36); Mean Corpuscular Volume 98.5 fl (80-100); Mean Platelet Volume 9.9 fl (7.4-10.4); Monocytes Absolute Auto 0.7 K/mm3 (0.1-0.6); Monocytes Percent Auto 7.3 % (2.6-8.5); Neutrophils Absolute Auto 7.6 K/mm3 (1.3-6.7); Platelet Count Result 138 k/mm3 (150-375); Red Blood Count 3.23 M/mm3 (4.6-6.20); Red Cell Distribution Width 13.6 % (11.5-14.5); White Blood Count 9.1 K/mm3 (4.5-10.0)
[2022-06-15 06:48] LABS: Partial Thromboplastin Time 38.8 SECONDS (22.3-36.8)
[2022-06-15 06:52] LABS: Alanine Aminotransferase 42 U/L (6-50); Albumin Level 3.2 g/dL (3.5-5.1); Alkaline Phosphatase 71 U/L (38-126); Anion Gap 12 mmol/L (8-16); Aspartate Amino Transferase 74 U/L (17-59); Bilirubin,Total 0.7 mg/dL (0.2-1.3); Blood Urea Nitrogen 21 mg/dL (9-20); Calcium 8.1 mg/dL (8.4-10.2); Carbon Dioxide 23 mmol/L (22-30); Chloride 108 mmol/L (98-107); Estimated CRCL calculation 53 ml/min; Estimated Glomerular Filt Rate 59; Glucose 203 mg/dL (65-110); Magnesium 1.7 mg/dL (1.6-2.3); Phosphorus 3.1 mg/dL (2.5-4.5); Potassium 3.6 mmol/L (3.4-5.0); Sodium 143 mmol/L (137-145)
[2022-06-15 08:19] LABS: Glucose Point of Care 211 mg/dl (65-105)
--- NOTE | 2022-06-15 09:22 | WPDINTPN ---
Progress Note: A&P Assessment and Plan (1) Cardiac arrest with ventricular fibrillation: Code(s): I46.9 - Cardiac arrest, cause unspecified; I49.01 - Ventricular fibrillation Status: Acute Assessment and Plan: Patient presented with VFib arrest, ROSC within 15 minutes after EMS arrived and started CPR, (total down time was about 25 minutes.) -patient status post target temperature management, rewarmed to normal body temperature. -elevated troponins likely related to cardiac arrest -patient on heparin, discussed with Cardiology will discontinue -appreciate cardiology evaluation -patient is off all sedation, had to be started on small dose of Precedex due to patient being restless and tachypneic -he does open his eyes and follows simple commands -appreciate Neurology evaluation and recommendation 06/14/2022 echocardiogram showed LV chamber dimension is severely enlarged, severely reduced LV systolic function with EF of 25-30%, mild aortic valve sclerosis, trace mitral valve regurg left atrial chamber dimension is mildly enlarged. (2) Acute respiratory failure with hypoxia: Code(s): J96.01 - Acute respiratory failure with hypoxia Status: Acute Assessment and Plan: Acute respiratory failure likely related to cardiac arrest -patient was intubated ED on 06/11/2022 -continue CMV mode of ventilation, peep of 8 in 30% FiO2, wean FiO2 to maintain O2 sats greater than 92% -off all sedation, only on small dose of Precedex -continue bronchodilators (3) Acute kidney injury: Code(s): N17.9 - Acute kidney failure, unspecified Status: Acute Assessment and Plan: Patient with acute kidney injury likely related cardiac arrest, diuretics -patient was given IV fluidin the ICU on 06/12 due to elevated lactic acid -creatinine back to normal at 1.20 -continue to monitor renal function, electrolytes and urine output (4) DM type 2 (diabetes mellitus, type 2): Qualifiers: Diabetes mellitus custodial insulin use: without risk specialist use Diabetes mellitus complication status: without complication Qualified Code(s): E11.9 - Type 2 diabetes mellitus without complications Code(s): E11.9 - Type 2 diabetes mellitus without complications Status: Acute Assessment and Plan: Has been hyperglycemic, started on insulin infusion for appropriate blood sugar control -patient was transition to Lantus overnight with moderate dose sliding scale -continue Lantus q.h.s. -will add small dose of Lantus QD (5) Nonischemic cardiomyopathy: Code(s): I42.8 - Other cardiomyopathies Status: Acute Assessment and Plan: nonischemic cardiomyopathy with EF of 20-25% on an echocardiogram done and 06/12/2021 -status post AICD -chest x-ray does not reveal significant pulmonary edema, will hold all diuresis at this time given decreased renal function and increase lactic acid -discontinue IV fluids Plan DVT prophylaxis: Stop heparin infusion, will switch to prophylactic loving Stress ulcer prophylaxis: IV Protonix Nutrition: Continue tube feeds 06/14/2022: Discussed patient's and son, and updated with patient's condition and plan of care. I answered all questions Code Status: Full code Critical Care Time Spent: 35 minutes Due to a high probability of clinically significant, life threatening deterioration, the patient required my highest level of preparedness to intervene emergently and I personally spent this critical care time directly and personally managing the patient. This critical care time included obtaining a history; examining the patient; pulse oximetry; ordering and review of studies; arranging urgent treatment with development of a management plan; evaluation of patient's response to treatment; frequent reassessment; and discussions with other providers. It was exclusive of separately billable procedures and treating other patients and teaching time. Please see Assessment and Keyshawn
[2022-06-15] MEDS: INSULIN GLARGINE (*BKC) 100 UNITS/ML SUB-Q (09:43)
[2022-06-15] MEDS: PANTOPRAZOLE SODIUM IV 40 MG VIAL IV PUSH (09:44)
[2022-06-15] MEDS: ENOXAPARIN 40 MG/0.4 ML SYRINGE SUB-Q (09:44)
[2022-06-15] MEDS: MINERAL OIL/WHITE PETROLATUM OINTMENT 1 APPLIC EACH EYE ×2 (09:44→21:23)
[2022-06-15 12:02] LABS: Glucose Point of Care 198 mg/dl (65-105)
--- NOTE | 2022-06-15 12:07 | PM.PNCARD ---
Progress Note: A&P Assessment and Plan (1) Cardiac arrest with ventricular fibrillation: Code(s): I46.9 - Cardiac arrest, cause unspecified; I49.01 - Ventricular fibrillation Status: Acute Assessment and Plan: Remains on Lovophed low dose. Resume Amiodarone. ICD in place. No recurrent ICD shock. No recurrent VT on telemetry Electrolytes stable potassium 3.6 not currently on Amiodarone po, will restart per tube. Monitor electrolytes keep potassium around 4.0 magnesium 2.0 as appropriate. Hold off on beta-marisela therapy due to ongoing use of pressors. (2) Hypoxic ischemic encephalopathy: Code(s): P91.60 - Hypoxic ischemic encephalopathy [HIE], unspecified Status: Acute Assessment and Plan: slow improvement. Weaning sedation. Remains intubated. Prognosis guarded. (3) Respiratory failure: Code(s): J96.90 - Respiratory failure, unspecified, unspecified whether with hypoxia or hypercapnia Status: Acute Assessment and Plan: Remains intubated. Wean ventilatory support as tolerated. Patient currently uncomfortable with low dose Precedex (4) Nonischemic cardiomyopathy: Code(s): I42.8 - Other cardiomyopathies Status: Acute Assessment and Plan: severe dilated nonischemic cardiomyopathy, status post ICD. EF 25% (5) Acute kidney injury: Code(s): N17.9 - Acute kidney failure, unspecified Status: Acute Assessment and Plan: Improved. Stable. Subjective Date/time seen: Date of service:06/15/22 12:07 Interval history: Follow-up visit in this 77-year-old man with: Longstanding nonischemic cardiomyopathy presenting to the hospital following out of hospital cardiac arrest with VT/VFib and appropriate response of his defibrillator. Despite this he was without a pulse for approximately 25 minutes at least. Patient is still intubated on the ventilator in the ICU he is re warmed and off sedation Patient remains intubated, following commands, eyes open more respiratory distress this morning On Precedex ventricular paced rhythm on telemetry occasional PVCs no sustained ventricular tachycardia. Unable to obtain history from the patient due to intubation mechanical ventilatory support. Low-grade fever. Remains on IV Unasyn. Review of Systems Review of Systems: ROS unobtainable: Yes unobtainable due to endotracheal tube, unobtainable due to medical condition and unobtainable due to mental status Gastrointestinal: Gastrointestinal: Denies hematochezia Genitourinary: Genitourinary: Denies hematuria Neurologic: Denies confusion Psychiatric: Psychiatric: Denies confusion Exam Narrative: eyes open, moving head, tracking Const: General: in distress mild and respiratory; No confusion Orientation/consciousness: oriented to person, patient oriented x3, No confusion and patient obtunded Other: obese elderly man sedated unresponsive on ventilator support HENMT: Mouth: Yes moist mucous membranes Other: endotracheal tube/ intubated mechanical ventilatory support Eyes: Sclera: sclerae normal Other: Pupils equal and round Neck: Neck: supple Thyroid: thyroid normal Other: unable to assess JVD given his obesity /normal carotid pulses Resp: Effort & Inspection: normal respiratory effort Auscultation: clear to auscultation bilaterally Other: few central rhonchi noted Cardio: Rate: regular rate Rhythm: regular rhythm Heart sounds: no murmurs GI: Inspection: normal to inspection Auscultation: normal bowel sounds Other: No hepatosplenomegaly Skin: General skin exam: normal color and no rashes or lesions noted Neuro: General: oriented to person, patient oriented x3, No confusion and patient obtunded Other: unresponsive Extrem: Right lower extremity: no edema Left lower extremity: no edema Other: Extremities cool, no distal pulses palpated Psych: Other: Intubated and sedated Objective Data Vital Signs
[2022-06-15] MEDS: MIDAZOLAM HCL (*CRX) 2 MG/2 ML VIAL (12:19)
[2022-06-15] MEDS: FUROSEMIDE INJ 40 MG/4 ML VIAL IV PUSH (12:29)
[2022-06-15] MEDS: dexmedeTOMIDine 400 MCG/100 ML 400 MCG/100 ML BAG 24.62 MCG IV CONT (16:06)
[2022-06-15 16:40] LABS: Glucose Point of Care 209 mg/dl (65-105)
--- NOTE | 2022-06-15 19:00 | PC.NURSE ---
On 06/15/22, the student, Dasha Stone, provided care and completed [employer] documentation on this patient. I have reviewed the student's documentation and agree with the findings.
[2022-06-15] MEDS: dexmedeTOMIDine 400 MCG/100 ML 400 MCG/100 ML BAG 30.09 MCG IV CONT ×2 (19:41→23:30)
[2022-06-15 21:46] LABS: Glucose Point of Care 200 mg/dl (65-105)
[2022-06-15] MEDS: INSULIN GLARGINE (*BKC) 100 UNITS/ML 20 UNITS SUB-Q (21:53)
[2022-06-16] VITALS (109 sets, daily range): BP systolic 73–139; BP diastolic 55–78; PULSE 60–955; RESP 18–29; TEMP 36.8–37.7; O2SAT 92–100
--- NOTE | 2022-06-16 01:06 | PC.NURSE ---
Daylight Savings Time For Daylight Savings Time Ending in the Fall - Clocks are moved back. For Daylight Savings Time Beginning in the Spring - Clocks are moved ahead. For [facility], the time of change occurs at 0200 hrs. Time is taken from the hotel server. This entry on the patient's chart recognizes the change in time reflected during documentation. Example: 2 entries for vital signs may be charted for 0200 hrs.
[2022-06-16] MEDS: AMPICILLIN SULB 3 GM/NS 100 ML 3 GM/100 ML VIAL IVPB ×5 (01:25→23:54)
[2022-06-16] MEDS: dexmedeTOMIDine 400 MCG/100 ML 400 MCG/100 ML BAG 30.09 MCG IV CONT ×3 (01:26→08:33)
[2022-06-16] MEDS: INSULIN ASPART (*BKC) 100 UNITS/ML SUB-Q ×5 (01:28→20:14)
[2022-06-16 01:39] LABS: Glucose Point of Care 203 mg/dl (65-105)
[2022-06-16] MEDS: IPRATROPIUM BR 0.02% INH SOLN 0.5 MG/2.5 ML VIAL INHALATION ×4 (02:49→20:01)
[2022-06-16] MEDS: ALBUTEROL SULFATE NEB 2.5 MG/3 ML INH INHALATION ×4 (02:49→20:00)
[2022-06-16] MEDS: CENTRAL LINE FLUSH 10 ML IV PUSH ×3 (05:08→20:15)
[2022-06-16 06:22] LABS: Alveolar/Arterial O2 Gradient 152.5 mmHg; Base Excess ABG 1.7 mEq/l (+/-2.0); Fractional Inspired Oxygen 40 %; HCO3 ABG 25.9 mEq/l (22.0-26.0); Methemoglobin ABG 0.2 %THb (0-1.5); Oxygen Content ABG 17.3 %vol (16.0-22.0); Oxyhemoglobin 96.3 % THb (90.0-100.0); PCO2 ABG 39.2 mmHg (35.0-45.0); PO2 ABG 87.6 mmHg (80.0-100.0); PO2 FiO2 Ratio Arterial Blood 2.19 %; Reduced Hemoglobin 3.5 %THb (0-5.0); Total Hemoglobin 12.7 g/dL (12.0-18.0); pH ABG 7.438 (7.350-7.450)
[2022-06-16 06:49] LABS: Basophils Percent Auto 0.3 % (0.2-1.2); Eosinophils Absolute Auto 0.1 K/mm3 (0-0.3); Eosinophils Percent Auto 0.9 % (0-4.4); Hematocrit 31.2 % (42.0-52.0); Hemoglobin 9.8 g/dL (14.0-18.0); Immature Granulocyte Absolute 0.06 K/mm3 (0.00-0.031); Immature Granulocyte Percent A 0.8 % (0-0.5); Lymphocytes Absolute Auto 0.24 K/mm3 (0.9-3.2); Lymphocytes Percent Auto 3.1 % (18.3-44.2); Mean Corpuscular HGB Conc 31.4 g/dl (32-36); Mean Corpuscular Hemoglobin 30.9 pg (26-34); Mean Corpuscular Volume 98.4 fl (80-100); Mean Platelet Volume 10.2 fl (7.4-10.4); Monocytes Absolute Auto 0.5 K/mm3 (0.1-0.6); Monocytes Percent Auto 6.7 % (2.6-8.5); Neutrophils Absolute Auto 6.8 K/mm3 (1.3-6.7); Neutrophils Percent Auto 88.2 % (45.5-73.1); Platelet Count Result 135 k/mm3 (150-375); Red Blood Count 3.17 M/mm3 (4.6-6.20); Red Cell Distribution Width 13.4 % (11.5-14.5); White Blood Count 7.7 K/mm3 (4.5-10.0)
[2022-06-16 06:50] LABS: Partial Thromboplastin Time 38.3 SECONDS (22.3-36.8)
[2022-06-16 06:54] LABS: Alanine Aminotransferase 46 U/L (6-50); Alkaline Phosphatase 81 U/L (38-126); Anion Gap 10 mmol/L (8-16); Aspartate Amino Transferase 49 U/L (17-59); Bilirubin,Total 0.7 mg/dL (0.2-1.3); Blood Urea Nitrogen 25 mg/dL (9-20); Calcium 8.4 mg/dL (8.4-10.2); Carbon Dioxide 24 mmol/L (22-30); Chloride 109 mmol/L (98-107); Estimated CRCL calculation 58 ml/min; Estimated Glomerular Filt Rate > 60; Glucose 250 mg/dL (65-110); Magnesium 1.9 mg/dL (1.6-2.3); Phosphorus 3.1 mg/dL (2.5-4.5); Potassium 4.1 mmol/L (3.4-5.0); Sodium 143 mmol/L (137-145)
--- NOTE | 2022-06-16 08:12 | WPDINTPN ---
Progress Note: A&P Assessment and Plan (1) Cardiac arrest with ventricular fibrillation: Code(s): I46.9 - Cardiac arrest, cause unspecified; I49.01 - Ventricular fibrillation Status: Acute Assessment and Plan: Patient presented with VFib arrest, ROSC within 15 minutes after EMS arrived and started CPR, (total down time was about 25 minutes.) -patient status post target temperature management, -elevated troponins likely related to cardiac arrest -patient is off all sedation, had to be started on small dose of Precedex due to patient being restless and tachypneic -he does open his eyes and follows simple commands -appreciate Neurology evaluation and recommendation -appreciate cardiology evaluation, patient started on amiodarone per feeding tube -currently off Levophed 06/14/2022 echocardiogram showed LV chamber dimension is severely enlarged, severely reduced LV systolic function with EF of 25-30%, mild aortic valve sclerosis, trace mitral valve regurg left atrial chamber dimension is mildly enlarged. (2) Acute respiratory failure with hypoxia: Code(s): J96.01 - Acute respiratory failure with hypoxia Status: Acute Assessment and Plan: Acute respiratory failure likely related to cardiac arrest -patient was intubated ED on 06/11/2022 -continue CMV mode of ventilation, peep of 8 in 30% FiO2, wean FiO2 to maintain O2 sats greater than 92% -off all sedation, only on small dose of Precedex -continue bronchodilators -chest x-ray continues to show left mid and bilateral lower lung infiltrates/atelectasis, could be pulmonary edema -low-grade fevers, added vancomycin -will gently diurese patient (3) Acute kidney injury: Code(s): N17.9 - Acute kidney failure, unspecified Status: Acute Assessment and Plan: Patient with acute kidney injury likely related cardiac arrest, diuretics -patient was given IV fluidin the ICU on 06/12 due to elevated lactic acid -creatinine back to normal -continue to monitor renal function, electrolytes and urine output (4) DM type 2 (diabetes mellitus, type 2): Qualifiers: Diabetes mellitus meterman insulin use: without meterman use Diabetes mellitus complication status: without complication Qualified Code(s): E11.9 - Type 2 diabetes mellitus without complications Code(s): E11.9 - Type 2 diabetes mellitus without complications Status: Acute Assessment and Plan: Patient was significantly hyperglycemic on admission, was placed on insulin infusion which is currently off Continue Accu-Cheks and sliding scale insulin -increase Lantus (5) Nonischemic cardiomyopathy: Code(s): I42.8 - Other cardiomyopathies Status: Acute Assessment and Plan: nonischemic cardiomyopathy with EF of 20-25% on an echocardiogram done and 06/12/2021 -status post AICD -chest x-ray does not reveal significant pulmonary edema, will hold all diuresis at this time given decreased renal function and increase lactic acid -discontinue IV fluids -gentle diuresis -will discuss with Cardiology regarding Xarelto, telmisartan, spironolactone and metoprolol -restart atorvastatin Plan DVT prophylaxis: Stop heparin infusion, will switch to prophylactic loving Stress ulcer prophylaxis: IV Protonix Nutrition: Continue tube feeds Discussed with daughter and son, and updated with patient's condition and plan of care. I answered all questions Code Status: Full code Critical Care Time Spent: 33 minutes Due to a high probability of clinically significant, life threatening deterioration, the patient required my highest level of preparedness to intervene emergently and I personally spent this critical care time directly and personally managing the patient. This critical care time included obtaining a history; examining the patient; pulse oximetry; ordering and review of studies; arranging urgent treatment with development of a management plan; evaluation of pat
[2022-06-16] MEDS: PANTOPRAZOLE SODIUM IV 40 MG VIAL IV PUSH (08:34)
[2022-06-16] MEDS: MINERAL OIL/WHITE PETROLATUM OINTMENT 1 APPLIC EACH EYE ×2 (08:34→20:15)
[2022-06-16] MEDS: ENOXAPARIN 40 MG/0.4 ML SYRINGE SUB-Q (08:34)
[2022-06-16] MEDS: FUROSEMIDE INJ 40 MG/4 ML VIAL 20 MG IV PUSH (08:40)
[2022-06-16] MEDS: AMIODARONE HCL 200 MG TABLET PO (08:50)
[2022-06-16 08:57] LABS: Glucose Point of Care 235 mg/dl (65-105)
[2022-06-16 09:19] LABS: Platelet Estimate Adequate (Adequate)
[2022-06-16 09:20] LABS: Poikilocytosis 1+ (NORMAL); Schistocytes None Seen (NORMAL)
[2022-06-16] MEDS: ATORVASTATIN 40 MG TABLET PO (09:28)
[2022-06-16] MEDS: AMIODARONE 150 MG/D5W 100 ML 150 MG/100 ML BAG 600 MG IV CONT (09:45)
[2022-06-16] MEDS: MIDAZOLAM HCL (*CRX) 2 MG/2 ML VIAL IV PUSH ×2 (09:45→09:58)
[2022-06-16] MEDS: MIDAZOLAM 100MG/NS 100ML(*CRX) 100 MG/100 ML BAG IV CONT ×2 (09:57→10:00)
[2022-06-16] MEDS: AMIODARONE 360 MG/D5W 200 ML 360 MG/200 ML BAG 33.33 MG IV CONT (10:00)
--- NOTE | 2022-06-16 10:16 | PM.PNCARD ---
Progress Note: A&P Assessment and Plan (1) Cardiac arrest with ventricular fibrillation: Code(s): I46.9 - Cardiac arrest, cause unspecified; I49.01 - Ventricular fibrillation Status: Acute Assessment and Plan: off pressors this a.m. continue Amiodarone. no ICD discharge with slower VT this morning status post external defibrillation x1. ICD in place. Electrolytes stable potassium 4.1 , magnesium 1.9 this a.m.. Monitor electrolytes keep potassium around 4.0 magnesium 2.0 as appropriate. Resume beta-marisela therapy as BP permits. (2) Ventricular tachycardia: Code(s): I47.2 - Ventricular tachycardia Status: Acute Assessment and Plan: as above, sustained VT approximately 140 beats per minute this morning s/p external defibx1 successful. IV Amio 150mg bolus and infusion initiated. Amiodarone po resumed yesterday. electrolytes stable. If recurrent slower VT may need to lower VT detect and therapies. monitor for now. (3) Hypoxic ischemic encephalopathy: Code(s): P91.60 - Hypoxic ischemic encephalopathy [HIE], unspecified Status: Acute Assessment and Plan: slow improvement. Weaning sedation. Remains intubated. Prognosis guarded. (4) Respiratory failure: Code(s): J96.90 - Respiratory failure, unspecified, unspecified whether with hypoxia or hypercapnia Status: Acute Assessment and Plan: Remains intubated. Wean ventilatory support as tolerated. Patient currently uncomfortable with low dose Precedex (5) Nonischemic cardiomyopathy: Code(s): I42.8 - Other cardiomyopathies Status: Acute Assessment and Plan: severe dilated nonischemic cardiomyopathy, status post ICD. EF 25% (6) Acute kidney injury: Code(s): N17.9 - Acute kidney failure, unspecified Status: Acute Assessment and Plan: Improved. Stable. Subjective Date/time seen: Date of service:06/16/22 10:16 Interval history: Follow-up visit in this 77-year-old man with: Longstanding nonischemic cardiomyopathy presenting to the hospital following out of hospital cardiac arrest with VT/VFib and appropriate response of his defibrillator. Despite this he was without a pulse for approximately 25 minutes at least. Patient is still intubated on the ventilator in the ICU he is re warmed and off sedation 06/15/2022 Patient remains intubated, following commands, eyes open more respiratory distress this morning On Precedex ventricular paced rhythm on telemetry occasional PVCs no sustained ventricular tachycardia. Unable to obtain history from the patient due to intubation mechanical ventilatory support. Low-grade fever. Remains on IV Unasyn. 06/16/2022 patient developed recurrent sustained ventricular tachycardia heart rate 140 beats per minute with hypotension status post defibrillation x1 with bahai of ventricular paced rhythm. Patient received oral amiodarone, IV amiodarone bolus and infusion initiated. Electrolytes stable, no reported issues overnight or early this morning as precipitating event. Patient remains intubated was off pressors. ICD VT 1 detect 162 beats per minute VT 2 detect 172 beats per minute Review of Systems Review of Systems: ROS unobtainable: Yes unobtainable due to endotracheal tube, unobtainable due to medical condition and unobtainable due to mental status Gastrointestinal: Gastrointestinal: Denies hematochezia Genitourinary: Genitourinary: Denies hematuria Neurologic: Denies confusion Psychiatric: Psychiatric: Denies confusion Exam Narrative: eyes open, moving head, tracking Const: General: in distress mild and respiratory and patient obtunded; No confusion Orientation/consciousness: oriented to person, patient oriented x3, No confusion and patient obtunded Other: obese elderly man sedated unresponsive on ventilator support HENMT: Mouth: Yes moist mucous membranes Other: endotracheal tube/ intubated m
[2022-06-16 11:21] LABS: Alveolar/Arterial O2 Gradient 108.4 mmHg; Base Excess ABG -1.3 mEq/l (+/-2.0); Fractional Inspired Oxygen 40 %; HCO3 ABG 24.1 mEq/l (22.0-26.0); Oxygen Content ABG 16.2 %vol (16.0-22.0); Oxygen Saturation ABG 98.4 % (95.0-100.0); Oxyhemoglobin 97.1 % THb (90.0-100.0); PCO2 ABG 43.3 mmHg (35.0-45.0); PO2 FiO2 Ratio Arterial Blood 3.17 %; Total Hemoglobin 11.7 g/dL (12.0-18.0); pH ABG 7.364 (7.350-7.450)
[2022-06-16 11:23] LABS: Arterial Blood Gas Ventilator rate 22 /MIN; Device VENTILATOR; Modified Allen's Test Pass; Site Drawn RIGHT RADIAL
[2022-06-16 11:24] LABS: Arterial Blood Gas PEEP 8 cmH2O; Arterial Blood Gas Tidal Volume 450 ml; Arterial Blood Gas Vent Mode CMV
[2022-06-16] MEDS: dexmedeTOMIDine 400 MCG/100 ML 400 MCG/100 ML BAG 27.35 MCG IV CONT (11:53)
[2022-06-16 12:21] LABS: Glucose Point of Care 207 mg/dl (65-105)
--- NOTE | 2022-06-16 14:54 | PM.IMPN ---
Progress Note: A&P Assessment and Plan (1) Cardiac arrest with ventricular fibrillation: Code(s): I46.9 - Cardiac arrest, cause unspecified; I49.01 - Ventricular fibrillation Status: Acute Assessment and Plan: Patient presented with VFib arrest, ROSC within 15 minutes after EMS arrived and started CPR, (total down time was about 25 minutes.) -patient status post target temperature management, -elevated troponins likely related to cardiac arrest - off sedation and started on precedex for restlessness. 06/14/2022 echocardiogram showed LV chamber dimension is severely enlarged, severely reduced LV systolic function with EF of 25-30%, mild aortic valve sclerosis, trace mitral valve regurg left atrial chamber dimension is mildly enlarged. Sustained ventricular tachycardia: 06/16/2022 status post successful external defibrillator x1 amiodarone started (2) Acute respiratory failure with hypoxia: Code(s): J96.01 - Acute respiratory failure with hypoxia Status: Acute Assessment and Plan: Acute respiratory failure likely related to cardiac arrest -patient was intubated ED on 06/11/2022 -continue CMV mode of ventilation, peep of 8 in 30% FiO2, wean FiO2 to maintain O2 sats greater than 92% -off all sedation, only on small dose of Precedex -continue bronchodilators -chest x-ray continues to show left mid and bilateral lower lung infiltrates/atelectasis, could be pulmonary edema -low-grade fevers, added vancomycin - diuresis started (3) Acute kidney injury: Code(s): N17.9 - Acute kidney failure, unspecified Status: Acute Assessment and Plan: Patient with acute kidney injury likely related cardiac arrest, diuretics -patient was given IV fluidin the ICU on 06/12 due to elevated lactic acid -creatinine back to normal -continue to monitor renal function, electrolytes and urine output (4) DM type 2 (diabetes mellitus, type 2): Qualifiers: Diabetes mellitus rat exterminator insulin use: without rat exterminator use Diabetes mellitus complication status: without complication Qualified Code(s): E11.9 - Type 2 diabetes mellitus without complications Code(s): E11.9 - Type 2 diabetes mellitus without complications Status: Acute Assessment and Plan: Patient was significantly hyperglycemic on admission, was placed on insulin infusion which is currently off Continue Accu-Cheks and sliding scale insulin -increase Lantus (5) Nonischemic cardiomyopathy: Code(s): I42.8 - Other cardiomyopathies Status: Acute Assessment and Plan: nonischemic cardiomyopathy with EF of 20-25% on an echocardiogram done and 06/12/2021 -status post AICD -chest x-ray does not reveal significant pulmonary edema, will hold all diuresis at this time given decreased renal function and increase lactic acid -discontinue IV fluids -gentle diuresis - Plan DVT prophylaxis: Lovenox Stress ulcer prophylaxis: IV Protonix Nutrition: Continue tube feeds code status: Full code Subjective Date/time seen: 06/16/22 14:54 Interval history: chart reviewed. intubated and on ventilator. went into ventricular tachycardia earlier today aborted with external defib. amiodarone started. Review of Systems Review of Systems: ROS unobtainable: Yes unobtainable due to mental status Exam Narrative: General: Intubated and sedated HEENT:? Pupils equal and reactive, sclera is clear Neck:? Supple Respiratory:? Coarse breath sounds bilaterally, decreased at bases, adequate air entry Cardiac:? Paced rhythm Abdomen:? Soft, nontender, nondistended, hypoactive bowel sounds, protuberant/obese Extremities:? 1+ edema, palpable pedal pulses Neuro:? Patient is intubated sedated Skin:? No lesions noted, warm and dry Psych:? Unable to assess at this time Objective Data Vital Signs Vital Signs: Vital Signs - 24 hr 06/15/22 16:00 06/15/22 16:05 06/15/22 16:09 Temperature 100.7 F H Pulse Rate 74 73 R
[2022-06-16] MEDS: dexmedeTOMIDine 400 MCG/100 ML 400 MCG/100 ML BAG 21.88 MCG IV CONT (15:17)
[2022-06-16] MEDS: AMIODARONE 360 MG/D5W 200 ML 360 MG/200 ML BAG 16.67 MG IV CONT ×2 (16:00→23:55)
[2022-06-16 17:21] LABS: Glucose Point of Care 175 mg/dl (65-105)
[2022-06-16 20:15] LABS: Glucose Point of Care 202 mg/dl (65-105)
[2022-06-16] MEDS: INSULIN GLARGINE (*BKC) 100 UNITS/ML 30 UNITS SUB-Q (20:15)
[2022-06-16] MEDS: dexmedeTOMIDine 400 MCG/100 ML 400 MCG/100 ML BAG 13.68 MCG IV CONT (21:11)
[2022-06-16] MEDS: NOREPINEPHRINE 8 MG/D5W 250 ML 8 MG/250 ML BAG 9.38 MG IV CONT (23:02)
[2022-06-16 23:54] LABS: Glucose Point of Care 197 mg/dl (65-105)
[2022-06-17] VITALS (38 sets, daily range): BP systolic 75–119; BP diastolic 51–94; PULSE 60–84; RESP 20–30; TEMP 37–37.9; O2SAT 97–100
[2022-06-17] MEDS: ALBUTEROL SULFATE NEB 2.5 MG/3 ML INH INHALATION ×4 (02:15→20:20)
[2022-06-17] MEDS: IPRATROPIUM BR 0.02% INH SOLN 0.5 MG/2.5 ML VIAL INHALATION ×4 (02:15→20:20)
[2022-06-17] MEDS: MIDAZOLAM 100MG/NS 100ML(*CRX) 100 MG/100 ML BAG IV CONT (04:07)
[2022-06-17] MEDS: dexmedeTOMIDine 400 MCG/100 ML 400 MCG/100 ML BAG 13.68 MCG IV CONT (04:34)
[2022-06-17 05:03] LABS: Glucose Point of Care 175 mg/dl (65-105)
[2022-06-17 05:44] LABS: Alveolar/Arterial O2 Gradient 140.7 mmHg; Base Excess ABG 2.5 mEq/l (+/-2.0); Carboxyhemoglobin 0.3 % THb (0-2.0); Fractional Inspired Oxygen 40 %; HCO3 ABG 26.5 mEq/l (22.0-26.0); Methemoglobin ABG 0.3 %THb (0-1.5); Oxygen Content ABG 15.5 %vol (16.0-22.0); Oxygen Saturation ABG 97.8 % (95.0-100.0); Oxyhemoglobin 96.5 % THb (90.0-100.0); PCO2 ABG 38.5 mmHg (35.0-45.0); PO2 ABG 100.2 mmHg (80.0-100.0); Reduced Hemoglobin 2.9 %THb (0-5.0); Total Hemoglobin 11.3 g/dL (12.0-18.0); pH ABG 7.455 (7.350-7.450)
[2022-06-17 05:46] LABS: Device VENTILATOR; Modified Allen's Test Pass; Site Drawn RIGHT RADIAL
[2022-06-17 05:47] LABS: Arterial Blood Gas PEEP 5 cmH2O; Arterial Blood Gas Tidal Volume 450 ml; Arterial Blood Gas Vent Mode CMV; Arterial Blood Gas Ventilator rate 22 /MIN
[2022-06-17] MEDS: AMPICILLIN SULB 3 GM/NS 100 ML 3 GM/100 ML VIAL IVPB ×4 (06:06→23:08)
[2022-06-17] MEDS: CENTRAL LINE FLUSH 10 ML IV PUSH ×3 (06:07→22:06)
[2022-06-17 06:42] LABS: Basophils Absolute Auto 0.1 K/mm3 (0.0-0.1); Basophils Percent Auto 0.6 % (0.2-1.2); Eosinophils Absolute Auto 0.5 K/mm3 (0-0.3); Eosinophils Percent Auto 5.6 % (0-4.4); Hematocrit 32.3 % (42.0-52.0); Hemoglobin 10.2 g/dL (14.0-18.0); Immature Granulocyte Absolute 0.08 K/mm3 (0.00-0.031); Lymphocytes Percent Auto 5.9 % (18.3-44.2); Mean Corpuscular HGB Conc 31.6 g/dl (32-36); Mean Corpuscular Hemoglobin 31.5 pg (26-34); Mean Corpuscular Volume 99.7 fl (80-100); Mean Platelet Volume 9.7 fl (7.4-10.4); Monocytes Percent Auto 12.4 % (2.6-8.5); Neutrophils Absolute Auto 6.3 K/mm3 (1.3-6.7); Neutrophils Percent Auto 74.5 % (45.5-73.1); Platelet Count Result 156 k/mm3 (150-375); Red Blood Count 3.24 M/mm3 (4.6-6.20); Red Cell Distribution Width 13.7 % (11.5-14.5); White Blood Count 8.4 K/mm3 (4.5-10.0)
[2022-06-17 06:48] LABS: Alanine Aminotransferase 49 U/L (6-50); Albumin Level 2.9 g/dL (3.5-5.1); Alkaline Phosphatase 79 U/L (38-126); Anion Gap 10 mmol/L (8-16); Aspartate Amino Transferase 74 U/L (17-59); Bilirubin,Total 0.5 mg/dL (0.2-1.3); Blood Urea Nitrogen 33 mg/dL (9-20); Calcium 8.5 mg/dL (8.4-10.2); Carbon Dioxide 28 mmol/L (22-30); Chloride 104 mmol/L (98-107); Estimated CRCL calculation 46 ml/min; Estimated Glomerular Filt Rate 49; Glucose 185 mg/dL (65-110); Magnesium 1.8 mg/dL (1.6-2.3); Phosphorus 3.5 mg/dL (2.5-4.5); Potassium 3.6 mmol/L (3.4-5.0); Sodium 142 mmol/L (137-145)
[2022-06-17 06:49] LABS: Partial Thromboplastin Time 35.1 SECONDS (22.3-36.8)
--- NOTE | 2022-06-17 08:16 | WPDINTPN ---
Progress Note: A&P Assessment and Plan (1) Cardiac arrest with ventricular fibrillation: Code(s): I46.9 - Cardiac arrest, cause unspecified; I49.01 - Ventricular fibrillation Status: Acute Assessment and Plan: Patient presented with VFib arrest, ROSC within 15 minutes after EMS arrived and started CPR, (total down time was about 25 minutes.) -patient status post target temperature management, -elevated troponins likely related to cardiac arrest -post target temperature management he did open his eyes and follows simple commands 06/16/2022: Patient had slow VFib/V-tach with no ICD discharge, requiring defibrillation x1, electrolytes were within normal limits patient was given amiodarone bolus and started on amiodarone infusion,. Cardiology was present during the episode. Cardiology going to evaluate AICD discharge thresholds -restarted on Levophed on 06/1606/14/2022 echocardiogram showed LV chamber dimension is severely enlarged, severely reduced LV systolic function with EF of 25-30%, mild aortic valve sclerosis, trace mitral valve regurg left atrial chamber dimension is mildly enlarged. (2) Acute respiratory failure with hypoxia: Code(s): J96.01 - Acute respiratory failure with hypoxia Status: Acute Assessment and Plan: Acute respiratory failure likely related to cardiac arrest -patient was intubated ED on 06/11/2022 -continue CMV mode of ventilation, peep of 8 in 30% FiO2, wean FiO2 to maintain O2 sats greater than 92% -off all sedation, only on small dose of Precedex -continue bronchodilators -06/17 chest x-ray: Small right pleural effusion with improvement in opacity in the right mid and lower lung zones with appearance suggesting improvement in pulmonary edema. Unchanged dense consolidation in the left mid to lower lung zone. Cardiomegaly -low-grade fevers, added vancomycin (3) Acute kidney injury: Code(s): N17.9 - Acute kidney failure, unspecified Status: Acute Assessment and Plan: Patient with acute kidney injury likely related cardiac arrest, diuretics - creatinine increased a little, possible secondary to V-tach/VFib, hypotension. Will continue to monitor -Urine output has been adequate -continue to monitor renal function, electrolytes and urine output (4) DM type 2 (diabetes mellitus, type 2): Qualifiers: Diabetes mellitus long-term insulin use: without intermediate accountant use Diabetes mellitus complication status: without complication Qualified Code(s): E11.9 - Type 2 diabetes mellitus without complications Code(s): E11.9 - Type 2 diabetes mellitus without complications Status: Acute Assessment and Plan: Patient was significantly hyperglycemic on admission, was placed on insulin infusion which is currently off Continue Accu-Cheks and sliding scale insulin -continue Lantus (5) Nonischemic cardiomyopathy: Code(s): I42.8 - Other cardiomyopathies Status: Acute Assessment and Plan: nonischemic cardiomyopathy with EF of 20-25% on an echocardiogram done and 06/12/2021 -status post AICD -chest x-ray does not reveal significant pulmonary edema, will hold all diuresis at this time given decreased renal function and increase lactic acid -of IV fluids -will discuss with Cardiology regarding Xarelto, -continue atorvastatin -continue to hold spironolactone, telmisartan and metoprolol as patient on Levophed Plan DVT prophylaxis: Prophylactic Lovenox Stress ulcer prophylaxis: IV Protonix Nutrition: Continue tube feeds Discussed with , daughter and son, and updated with patient's condition and plan of care. I answered all questions Code Status: Full code Critical Care Time Spent: 34 minutes Due to a high probability of clinically significant, life threatening deterioration, the patient required my highest level of preparedness to intervene emergently and I personally spent this critical care time directly and perso
[2022-06-17] MEDS: ATORVASTATIN 40 MG TABLET PO (08:52)
[2022-06-17] MEDS: MINERAL OIL/WHITE PETROLATUM OINTMENT 1 APPLIC EACH EYE ×2 (08:52→22:05)
[2022-06-17] MEDS: ENOXAPARIN 40 MG/0.4 ML SYRINGE SUB-Q (08:52)
[2022-06-17] MEDS: PANTOPRAZOLE SODIUM IV 40 MG VIAL IV PUSH (08:52)
[2022-06-17] MEDS: INSULIN ASPART (*BKC) 100 UNITS/ML SUB-Q ×2 (09:03→11:08)
[2022-06-17 09:04] LABS: Glucose Point of Care 204 mg/dl (65-105)
[2022-06-17] MEDS: ALBUMIN HUMAN 25% 25 GM/100 ML 100 ML IVPB ×3 (09:11→21:00)
--- NOTE | 2022-06-17 10:40 | PCFNICU ---
ICU Rounding Note: Pt current nutrition is Vital 1.2 @ 65 ml/h. 1716 kcals, 99 g protein, 1160 ml free water. flushes 30 ml q 4h. Nutrition recommendation: Agree with current TF regimen for now with pressors on. No changes to TF regimen. Last recorded weight is 107.4 kg. Bowel Motility: None charted Labs Reviewed: Hgc 10.2, Hct 32.3, Alb 2.9, BUN 33, Creat 1.4 Meds Noted: Precedex, Levophed, Skin: Blistering from cooling blanket. Wound care consult Additional Notes: Pressors on, levophed @ 9.38 ml/h. Day 6 of vent. Meeting about 90% EER at current rate 65 ml/h. Lost -12 lbs since initial weight. Consider increasing to 75 ml/h after pressors decrease or discontinue. 18 kcals/kg = 1933 kcals. Current rate: 16 kcals/kg = 1718 kcals/day. Min vent 8.3 L/min today (decreasing). MAP 66. Following daily in ICU rounds. follow up T/F monitor feeding tolerance, per policy gastric residual, wt and labs.
[2022-06-17] MEDS: dexmedeTOMIDine 400 MCG/100 ML 400 MCG/100 ML BAG 8.21 MCG IV CONT ×2 (11:03→23:06)
[2022-06-17 11:17] LABS: Glucose Point of Care 250 mg/dl (65-105)
[2022-06-17 17:24] LABS: Glucose Point of Care 162 mg/dl (65-105)
[2022-06-17] MEDS: AMIODARONE 360 MG/D5W 200 ML 360 MG/200 ML BAG 16.67 MG IV CONT (18:31)
[2022-06-17] MEDS: INSULIN GLARGINE (*BKC) 100 UNITS/ML 30 UNITS SUB-Q (22:05)
[2022-06-17 22:12] LABS: Glucose Point of Care 209 mg/dl (65-105)
[2022-06-18] VITALS (67 sets, daily range): BP systolic 92–151; BP diastolic 57–75; PULSE 60–74; RESP 20–36; TEMP 37.1–38.1; O2SAT 91–100
[2022-06-18 00:27] LABS: Glucose Point of Care 187 mg/dl (65-105)
[2022-06-18] MEDS: ALBUTEROL SULFATE NEB 2.5 MG/3 ML INH INHALATION ×4 (02:41→20:17)
[2022-06-18] MEDS: IPRATROPIUM BR 0.02% INH SOLN 0.5 MG/2.5 ML VIAL INHALATION ×4 (02:42→20:17)
[2022-06-18] MEDS: ALBUMIN HUMAN 25% 25 GM/100 ML 100 ML IVPB (03:10)
[2022-06-18] MEDS: NOREPINEPHRINE 8 MG/D5W 250 ML 8 MG/250 ML BAG 5.63 MG IV CONT (03:11)
[2022-06-18 04:53] LABS: Basophils Percent Auto 0.6 % (0.2-1.2); Eosinophils Absolute Auto 0.4 K/mm3 (0-0.3); Eosinophils Percent Auto 5.8 % (0-4.4); Hematocrit 28.1 % (42.0-52.0); Hemoglobin 8.8 g/dL (14.0-18.0); Immature Granulocyte Absolute 0.06 K/mm3 (0.00-0.031); Immature Granulocyte Percent A 0.9 % (0-0.5); Lymphocytes Absolute Auto 0.47 K/mm3 (0.9-3.2); Lymphocytes Percent Auto 7.3 % (18.3-44.2); Mean Corpuscular HGB Conc 31.3 g/dl (32-36); Mean Corpuscular Volume 98.9 fl (80-100); Mean Platelet Volume 10.1 fl (7.4-10.4); Monocytes Absolute Auto 0.9 K/mm3 (0.1-0.6); Monocytes Percent Auto 13.4 % (2.6-8.5); Neutrophils Absolute Auto 4.6 K/mm3 (1.3-6.7); Platelet Count Result 133 k/mm3 (150-375); Red Blood Count 2.84 M/mm3 (4.6-6.20); Red Cell Distribution Width 13.7 % (11.5-14.5); White Blood Count 6.4 K/mm3 (4.5-10.0)
[2022-06-18 05:30] LABS: Alanine Aminotransferase 46 U/L (6-50); Albumin Level 3.6 g/dL (3.5-5.1); Alkaline Phosphatase 75 U/L (38-126); Anion Gap 10 mmol/L (8-16); Aspartate Amino Transferase 66 U/L (17-59); Bilirubin,Total 0.6 mg/dL (0.2-1.3); Blood Urea Nitrogen 37 mg/dL (9-20); Calcium 8.5 mg/dL (8.4-10.2); Carbon Dioxide 28 mmol/L (22-30); Chloride 104 mmol/L (98-107); Estimated CRCL calculation 53 ml/min; Estimated Glomerular Filt Rate 59; Glucose 168 mg/dL (65-110); Potassium 3.7 mmol/L (3.4-5.0); Sodium 142 mmol/L (137-145)
[2022-06-18 05:38] LABS: Alveolar/Arterial O2 Gradient 77.3 mmHg; Base Excess ABG 3.7 mEq/l (+/-2.0); Carboxyhemoglobin 0.1 % THb (0-2.0); Fractional Inspired Oxygen 30 %; HCO3 ABG 28.3 mEq/l (22.0-26.0); Oxygen Content ABG 13.2 %vol (16.0-22.0); Oxygen Saturation ABG 96.7 % (95.0-100.0); Oxyhemoglobin 95.8 % THb (90.0-100.0); PCO2 ABG 43.1 mmHg (35.0-45.0); PO2 FiO2 Ratio Arterial Blood 2.87 %; Reduced Hemoglobin 4.1 %THb (0-5.0); Total Hemoglobin 9.7 g/dL (12.0-18.0); pH ABG 7.435 (7.350-7.450)
[2022-06-18] MEDS: CENTRAL LINE FLUSH 10 ML IV PUSH ×3 (05:46→20:49)
[2022-06-18] MEDS: AMIODARONE 360 MG/D5W 200 ML 360 MG/200 ML BAG 16.67 MG IV CONT ×2 (05:46→16:50)
[2022-06-18] MEDS: AMPICILLIN SULB 3 GM/NS 100 ML 3 GM/100 ML VIAL IVPB ×4 (05:46→23:02)
[2022-06-18 06:11] LABS: Device VENTILATOR; Modified Allen's Test Pass; Site Drawn RIGHT RADIAL
[2022-06-18 06:12] LABS: Arterial Blood Gas PEEP 8 cmH2O; Arterial Blood Gas Tidal Volume 450 ml; Arterial Blood Gas Vent Mode CMV; Arterial Blood Gas Ventilator rate 20 /MIN
[2022-06-18 08:23] LABS: Arterial Blood Gas PEEP 8 cmH2O; Arterial Blood Gas Tidal Volume 450 ml; Arterial Blood Gas Vent Mode ASSIST CONTROL; Arterial Blood Gas Ventilator rate 22 /MIN; Device VENTILATOR
[2022-06-18] MEDS: POTASSIUM CHLORIDE 20 MEQ PACKET (FOR LIQUID) 40 MEQ FEED TUBE (08:44)
[2022-06-18] MEDS: MINERAL OIL/WHITE PETROLATUM OINTMENT 1 APPLIC EACH EYE ×2 (08:45→20:49)
[2022-06-18] MEDS: PANTOPRAZOLE SODIUM IV 40 MG VIAL IV PUSH (08:45)
[2022-06-18] MEDS: ATORVASTATIN 40 MG TABLET PO (08:45)
[2022-06-18] MEDS: ENOXAPARIN 40 MG/0.4 ML SYRINGE SUB-Q (08:45)
[2022-06-18] MEDS: FUROSEMIDE INJ 40 MG/4 ML VIAL IV PUSH (08:45)
[2022-06-18] MEDS: MIDAZOLAM HCL (*CRX) 2 MG/2 ML VIAL IV PUSH ×2 (09:12→22:56)
[2022-06-18 09:32] LABS: NT Pro B Type Natriuretic Pept 2900 pg/mL (5-100)
[2022-06-18] MEDS: LORazepam INJ (*CRX) 2 MG/ML VIAL IV PUSH (09:47)
[2022-06-18] MEDS: dexmedeTOMIDine 400 MCG/100 ML 400 MCG/100 ML BAG 19.15 MCG IV CONT ×3 (09:49→19:40)
[2022-06-18 10:11] LABS: Procalcitonin 0.2 ng/mL
--- NOTE | 2022-06-18 10:43 | WPDINTPN ---
Progress Note: A&P Assessment and Plan (1) Cardiac arrest with ventricular fibrillation: Code(s): I46.9 - Cardiac arrest, cause unspecified; I49.01 - Ventricular fibrillation Status: Acute Assessment and Plan: Patient presented with VFib arrest, ROSC within 15 minutes after EMS arrived and started CPR, (total down time was about 25 minutes.) -patient status post target temperature management, -elevated troponins likely related to cardiac arrest -post target temperature management he is following simple commands with all 4 extremities 06/16/2022: Patient had slow VFib/V-tach with no ICD discharge, requiring defibrillation x1, electrolytes were within normal limits patient was given amiodarone bolus and started on amiodarone infusion,. Cardiology was present during the episode. Cardiology going to evaluate AICD discharge thresholds Continue Levophed for shock and blood pressure support 06/14/2022 echocardiogram showed LV chamber dimension is severely enlarged, severely reduced LV systolic function with EF of 25-30%, mild aortic valve sclerosis, trace mitral valve regurg left atrial chamber dimension is mildly enlarged. (2) Acute respiratory failure with hypoxia: Code(s): J96.01 - Acute respiratory failure with hypoxia Status: Acute Assessment and Plan: Acute respiratory failure likely related to cardiac arrest -patient was intubated ED on 06/11/2022 -continue CMV mode of ventilation, peep of 8 in 30% FiO2, wean FiO2 to maintain O2 sats greater than 92% -off all sedation except Precedex -continue bronchodilators - Chest x-ray reviewed - 12/16 PSV weaning trial was performed. Patient quickly failed trial due to high RSBI with respiratory rate up to 40 and obvious respiratory distress and use of accessory muscles On vancomycin and Unasyn -check procalcitonin (3) Acute kidney injury: Code(s): N17.9 - Acute kidney failure, unspecified Status: Acute Assessment and Plan: Patient with acute kidney injury likely related cardiac arrest, diuretics -110/07 creatinine increased a little, possible secondary to V-tach/VFib, hypotension. Will continue to monitor -creatinine at 1.2 today -Urine output has been adequate -continue Lasix IV for volume overload -continue to monitor renal function, electrolytes and urine output (4) DM type 2 (diabetes mellitus, type 2): Qualifiers: Diabetes mellitus sales activity manager insulin use: without sales activity manager use Diabetes mellitus complication status: without complication Qualified Code(s): E11.9 - Type 2 diabetes mellitus without complications Code(s): E11.9 - Type 2 diabetes mellitus without complications Status: Acute Assessment and Plan: Patient was significantly hyperglycemic on admission, was placed on insulin infusion which is currently off Continue Accu-Cheks and sliding scale insulin -continue Lantus (5) Nonischemic cardiomyopathy: Code(s): I42.8 - Other cardiomyopathies Status: Acute Assessment and Plan: nonischemic cardiomyopathy with EF of 20-25% on an echocardiogram done and 06/12/2021 -status post AICD -chest x-ray does not reveal significant pulmonary edema, will hold all diuresis at this time given decreased renal function and increase lactic acid -of IV fluids. Will give Lasix -discussed with Dr. Butterfield with Cardiology and no plans for further diagnostic workup including cardiac catheterization at this time -continue atorvastatin -continue to hold spironolactone, telmisartan and metoprolol at this time as patient on Levophed -check BNP Echo Summary ? 1. Left ventricular chamber dimension is severely enlarged. ? 2. Left ventricular systolic function is severely reduced, estimated at 25-30%. ? 3. There is mild aortic valve sclerosis. ? 4. There is trace mitral valve regurgitation. ? 5. Left atrial chamber dimension is mildly enlarged. (6) Sepsis: Code(s): A41.9 - Sepsis, unspecified organism
--- NOTE | 2022-06-18 10:58 | PCNFU ---
Nutrition Follow-Up Complete: decreased nutrient needs related to NPO status as evidence by diet order Goal: Meet estimated energy needs through TF Patient is progressing towards goal. We will continue current goal. Pt current nutrition is Vital AF at 65 ml/hr. Last recorded weight is 108.1 kg, down from 113 kg on admit. Bowel Motility: +Bm reported 06/17 Labs Reviewed:Glu 168, BUN 37, Hct 28.1,Hgb 8.8 Meds Noted:Precedex, Levophed, Lasix, Lovenox,Atrovent,Vancomycin. Skin: WNL Additional Notes: Patient remains on mechanical vent and tube feedings of Vital AF 1.2 at 65 ml/hr. Current tube feedings providing 1716 kcals/99 gms protein/1160 ml water. Meeting 100% kcal needs and 100% protein needs. Free water flush 30 ml q 4 hours. Agree with diet orders. follow up T/F monitor feeding tolerance, per policy gastric residual, wt and labs
--- NOTE | 2022-06-18 11:06 | PM.PNCARD ---
Progress Note: A&P Assessment and Plan (1) Cardiac arrest with ventricular fibrillation: Code(s): I46.9 - Cardiac arrest, cause unspecified; I49.01 - Ventricular fibrillation Status: Acute Assessment and Plan: Wean pressors as able. Continue Amiodarone. Will recheck a magnesium today. Will give 40 mEq of potassium chloride IV x1. Monitor electrolytes keep potassium around 4.0 magnesium 2.0 as appropriate. Will check an EKG now as it appears that he is in atrial flutter (2) Ventricular tachycardia: Code(s): I47.2 - Ventricular tachycardia Status: Acute Assessment and Plan: as above, sustained VT approximately 140 beats per minute this morning s/p external defibx1 successful. IV Amio 150mg bolus and infusion initiated. Amiodarone po resumed yesterday. electrolytes stable. If recurrent slower VT may need to lower VT detect and therapies. monitor for now. Will need electrophysiology evaluation/opinion (3) Hypoxic ischemic encephalopathy: Code(s): P91.60 - Hypoxic ischemic encephalopathy [HIE], unspecified Status: Acute Assessment and Plan: slow improvement. Weaning sedation. Remains intubated. Prognosis guarded. (4) Respiratory failure: Code(s): J96.90 - Respiratory failure, unspecified, unspecified whether with hypoxia or hypercapnia Status: Acute Assessment and Plan: Remains intubated. Wean ventilatory support as tolerated. Patient currently uncomfortable with low dose Precedex (5) Nonischemic cardiomyopathy: Code(s): I42.8 - Other cardiomyopathies Status: Acute Assessment and Plan: severe dilated nonischemic cardiomyopathy, status post ICD. EF 25% (6) Acute kidney injury: Code(s): N17.9 - Acute kidney failure, unspecified Status: Acute Assessment and Plan: Improved. Stable. Subjective Date/time seen: 06/18/22 11:06 Interval history: Follow-up visit in this 77-year-old man with: Longstanding nonischemic cardiomyopathy presenting to the hospital following out of hospital cardiac arrest with VT/VFib and appropriate response of his defibrillator. Despite this he was without a pulse for approximately 25 minutes at least. Patient is still intubated on the ventilator in the ICU he is re warmed and off sedation 06/15/2022 Patient remains intubated, following commands, eyes open more respiratory distress this morning On Precedex ventricular paced rhythm on telemetry occasional PVCs no sustained ventricular tachycardia. Unable to obtain history from the patient due to intubation mechanical ventilatory support. Low-grade fever. Remains on IV Unasyn. 06/16/2022 patient developed recurrent sustained ventricular tachycardia heart rate 140 beats per minute with hypotension status post defibrillation x1 with orthodoxy of ventricular paced rhythm. Patient received oral amiodarone, IV amiodarone bolus and infusion initiated. Electrolytes stable, no reported issues overnight or early this morning as precipitating event. Patient remains intubated was off pressors. ICD VT 1 detect 162 beats per minute VT 2 detect 172 beats per minute Date of service 06/18/2022: He is responsive and following simple commands while sedated on the ventilator. Is having some ventricular ectopy and is in atrial flutter at this point. Review of Systems Review of Systems: ROS unobtainable: Yes unobtainable due to endotracheal tube, unobtainable due to medical condition and unobtainable due to mental status Gastrointestinal: Gastrointestinal: Denies hematochezia Genitourinary: Genitourinary: Denies hematuria Integumentary/Breasts: Skin/Breast: Denies wounds Neurologic: Denies confusion Psychiatric: Psychiatric: Denies confusion Exam Narrative: eyes open, moving head, tracking Const: General: in distress mild and respiratory; No confusion Orientation/consciousness: oriented to person and No confusion Other:
--- NOTE | 2022-06-18 11:14 | ECG_ITS ---
Measurements Intervals [place] Rate: 60 P: NC: 0 QRS: -70 QRSD: 195 T: -26 QT: 533 QTc: 533 Interpretive Statements ELECTRONIC VENTRICULAR PACEMAKER UNDERLYING ATRIAL FLUTTER/TACHYCARDIA BASELINE ARTIFACT- I, II, AVR, AVL, AVF NO FURTHER INTERPRETATION IS POSSIBLE ABNORMAL ECG COMPARED TO ECG 06/12/2022 16:06:33 NO SIGNIFICANT CHANGES Electronically Signed On 06-18-2022 13:30:46 LEGAL CONTRACTS SPECIALIST by Niels Brower D.O.
[2022-06-18 11:53] LABS: Glucose Point of Care 253 mg/dl (65-105)
[2022-06-18] MEDS: INSULIN ASPART (*BKC) 100 UNITS/ML SUB-Q ×2 (12:16→17:31)
--- NOTE | 2022-06-18 14:41 | PM.IMPN ---
Progress Note: A&P Assessment and Plan (1) Cardiac arrest with ventricular fibrillation: Code(s): I46.9 - Cardiac arrest, cause unspecified; I49.01 - Ventricular fibrillation Status: Acute Assessment and Plan: Patient presented with VFib arrest, ROSC within 15 minutes after EMS arrived and started CPR, (total down time was about 25 minutes.) -patient status post target temperature management, -elevated troponins likely related to cardiac arrest -post target temperature management he is following simple commands with all 4 extremities 06/16/2022: Patient had slow VFib/V-tach with no ICD discharge, requiring defibrillation x1, electrolytes were within normal limits patient was given amiodarone bolus and started on amiodarone infusion,. Cardiology was present during the episode. Cardiology going to evaluate AICD discharge thresholds Continue Levophed for shock and blood pressure support 06/14/2022 echocardiogram showed LV chamber dimension is severely enlarged, severely reduced LV systolic function with EF of 25-30%, mild aortic valve sclerosis, trace mitral valve regurg left atrial chamber dimension is mildly enlarged. (2) Acute respiratory failure with hypoxia: Code(s): J96.01 - Acute respiratory failure with hypoxia Status: Acute Assessment and Plan: Acute respiratory failure likely related to cardiac arrest -patient was intubated ED on 06/11/2022 -continue CMV mode of ventilation, peep of 8 in 30% FiO2, wean FiO2 to maintain O2 sats greater than 92% -off all sedation except Precedex -continue bronchodilators - Chest x-ray reviewed - 12/16 PSV weaning trial was performed. Patient quickly failed trial due to high RSBI with respiratory rate up to 40 and obvious respiratory distress and use of accessory muscles On vancomycin and Unasyn -check procalcitonin (3) Acute kidney injury: Code(s): N17.9 - Acute kidney failure, unspecified Status: Acute Assessment and Plan: Patient with acute kidney injury likely related cardiac arrest, diuretics creatinine increased a little to 1.4 06/17, possible secondary to V-tach/VFib, hypotension. Will continue to monitor -creatinine down to 1.2 -Urine output has been adequate -continue Lasix IV for volume overload -continue to monitor renal function, electrolytes and urine output (4) DM type 2 (diabetes mellitus, type 2): Qualifiers: Diabetes mellitus accounts administrator insulin use: without accounts administrator use Diabetes mellitus complication status: without complication Qualified Code(s): E11.9 - Type 2 diabetes mellitus without complications Code(s): E11.9 - Type 2 diabetes mellitus without complications Status: Acute Assessment and Plan: Patient was significantly hyperglycemic on admission, was placed on insulin infusion which is currently off Continue Accu-Cheks and sliding scale insulin -continue Lantus (5) Nonischemic cardiomyopathy: Code(s): I42.8 - Other cardiomyopathies Status: Acute Assessment and Plan: nonischemic cardiomyopathy with EF of 20-25% on an echocardiogram done and 06/12/2021 -status post AICD -chest x-ray does not reveal significant pulmonary edema, will hold all diuresis at this time given decreased renal function and increase lactic acid -of IV fluids. Will give Lasix -discussed with Dr. Butterfield with Cardiology and no plans for further diagnostic workup including cardiac catheterization at this time -continue atorvastatin -continue to hold spironolactone, telmisartan and metoprolol at this time as patient on Levophed -check BNP Echo Summary ? 1. Left ventricular chamber dimension is severely enlarged. ? 2. Left ventricular systolic function is severely reduced, estimated at 25-30%. ? 3. There is mild aortic valve sclerosis. ? 4. There is trace mitral valve regurgitation. ? 5. Left atrial chamber dimension is mildly enlarged. (6) Sepsis: Code(s): A41.9 - Sepsis, unspecified organism
[2022-06-18 17:21] LABS: Glucose Point of Care 203 mg/dl (65-105)
[2022-06-18 20:53] LABS: Glucose Point of Care 194 mg/dl (65-105)
[2022-06-18] MEDS: INSULIN GLARGINE (*BKC) 100 UNITS/ML 30 UNITS SUB-Q (20:56)
[2022-06-18 23:48] LABS: Glucose Point of Care 204 mg/dl (65-105)
[2022-06-19] VITALS (85 sets, daily range): BP systolic 90–129; BP diastolic 49–80; PULSE 60–102; RESP 15–36; TEMP 36.9–38.1; O2SAT 93–100
[2022-06-19] MEDS: INSULIN ASPART (*BKC) 100 UNITS/ML SUB-Q ×4 (00:10→20:39)
[2022-06-19] MEDS: dexmedeTOMIDine 400 MCG/100 ML 400 MCG/100 ML BAG 41.03 MCG IV CONT (00:11)
--- NOTE | 2022-06-19 02:22 | PC.NURSE ---
0215 Patient remains tachypneic RR 32-36. Dr Koehler informed and orders received.
[2022-06-19] MEDS: PROPOFOL IV EMULSION 100 ML 3.24 MG IV CONT (02:35)
[2022-06-19] MEDS: dexmedeTOMIDine 400 MCG/100 ML 400 MCG/100 ML BAG 16.41 MCG IV CONT ×2 (02:47→08:40)
[2022-06-19] MEDS: IPRATROPIUM BR 0.02% INH SOLN 0.5 MG/2.5 ML VIAL INHALATION ×4 (03:13→20:00)
[2022-06-19] MEDS: ALBUTEROL SULFATE NEB 2.5 MG/3 ML INH INHALATION ×4 (03:13→20:00)
[2022-06-19] MEDS: AMIODARONE 360 MG/D5W 200 ML 360 MG/200 ML BAG 16.67 MG IV CONT (04:55)
[2022-06-19 05:15] LABS: Alveolar/Arterial O2 Gradient 94.1 mmHg; Base Excess ABG 5.2 mEq/l (+/-2.0); Carboxyhemoglobin 0.2 % THb (0-2.0); Fractional Inspired Oxygen 30 %; HCO3 ABG 28.8 mEq/l (22.0-26.0); Methemoglobin ABG 0.2 %THb (0-1.5); Oxygen Content ABG 13.9 %vol (16.0-22.0); Oxygen Saturation ABG 95.9 % (95.0-100.0); Oxyhemoglobin 94.5 % THb (90.0-100.0); PCO2 ABG 38.8 mmHg (35.0-45.0); PO2 ABG 74.2 mmHg (80.0-100.0); PO2 FiO2 Ratio Arterial Blood 2.47 %; Reduced Hemoglobin 5.1 %THb (0-5.0); Total Hemoglobin 10.4 g/dL (12.0-18.0); pH ABG 7.489 (7.350-7.450)
[2022-06-19 05:18] LABS: Arterial Blood Gas PEEP 8 cmH2O; Arterial Blood Gas Tidal Volume 450 ml; Arterial Blood Gas Vent Mode CMV; Arterial Blood Gas Ventilator rate 20 /MIN; Device VENTILATOR; Modified Allen's Test Unable to perform; Site Drawn RIGHT RADIAL
[2022-06-19 05:37] LABS: Hemoglobin 9.4 g/dL (14.0-18.0); Mean Corpuscular HGB Conc 31.3 g/dl (32-36); Mean Platelet Volume 10.3 fl (7.4-10.4); Platelet Count Result 144 k/mm3 (150-375); Red Blood Count 3.03 M/mm3 (4.6-6.20); Red Cell Distribution Width 13.5 % (11.5-14.5)
[2022-06-19 05:46] LABS: Alanine Aminotransferase 43 U/L (6-50); Albumin Level 3.4 g/dL (3.5-5.1); Alkaline Phosphatase 80 U/L (38-126); Anion Gap 12 mmol/L (8-16); Aspartate Amino Transferase 53 U/L (17-59); Bilirubin,Total 0.6 mg/dL (0.2-1.3); Blood Urea Nitrogen 36 mg/dL (9-20); Calcium 8.6 mg/dL (8.4-10.2); Carbon Dioxide 28 mmol/L (22-30); Chloride 102 mmol/L (98-107); Estimated CRCL calculation 53 ml/min; Estimated Glomerular Filt Rate 59; Glucose 180 mg/dL (65-110); Magnesium 2.1 mg/dL (1.6-2.3); Potassium 3.8 mmol/L (3.4-5.0); Sodium 142 mmol/L (137-145)
[2022-06-19] MEDS: CENTRAL LINE FLUSH 10 ML IV PUSH ×3 (05:56→21:23)
[2022-06-19] MEDS: AMPICILLIN SULB 3 GM/NS 100 ML 3 GM/100 ML VIAL IVPB ×3 (05:56→17:19)
[2022-06-19] MEDS: PROPOFOL IV EMULSION 100 ML 19.46 MG IV CONT (06:16)
[2022-06-19] MEDS: ENOXAPARIN 40 MG/0.4 ML SYRINGE SUB-Q (08:05)
[2022-06-19] MEDS: PANTOPRAZOLE SODIUM IV 40 MG VIAL IV PUSH (08:06)
[2022-06-19] MEDS: MINERAL OIL/WHITE PETROLATUM OINTMENT 1 APPLIC EACH EYE ×3 (08:06→20:39)
[2022-06-19] MEDS: ATORVASTATIN 40 MG TABLET PO (08:06)
[2022-06-19] MEDS: FUROSEMIDE INJ 40 MG/4 ML VIAL IV PUSH ×2 (08:17→15:06)
--- NOTE | 2022-06-19 08:35 | WPDINTPN ---
Progress Note: A&P Assessment and Plan (1) Cardiac arrest with ventricular fibrillation: Code(s): I46.9 - Cardiac arrest, cause unspecified; I49.01 - Ventricular fibrillation Status: Acute Assessment and Plan: Patient presented with VFib arrest, ROSC within 15 minutes after EMS arrived and started CPR, (total down time was about 25 minutes.) -patient status post target temperature management, -elevated troponins likely related to cardiac arrest -post target temperature management he is following simple commands with all 4 extremities 06/16/2022: Patient had slow VFib/V-tach with no ICD discharge, requiring defibrillation x1, electrolytes were within normal limits patient was given amiodarone bolus and started on amiodarone infusion,. Cardiology was present during the episode. Cardiology going to evaluate AICD discharge thresholds Continue Levophed for shock and blood pressure support Continue amiodarone infusion 06/14/2022 echocardiogram showed LV chamber dimension is severely enlarged, severely reduced LV systolic function with EF of 25-30%, mild aortic valve sclerosis, trace mitral valve regurg left atrial chamber dimension is mildly enlarged. (2) Acute respiratory failure with hypoxia: Code(s): J96.01 - Acute respiratory failure with hypoxia Status: Acute Assessment and Plan: Acute respiratory failure likely related to cardiac arrest -patient was intubated ED on 06/11/2022 -continue CMV mode of ventilation, peep of 8 in 30% FiO2, wean FiO2 to maintain O2 sats greater than 92% -sedated with propofol and Precedex -continue bronchodilators - Chest x-ray reviewed and shows worsening. Will continue diuretics - 5 PSV weaning trial was performed. Patient quickly failed trial due to high RSBI with respiratory rate up to 40 and obvious respiratory distress and use of accessory muscles -will trial again today but with worsening chest x-ray, I would continue with diuresis and antibiotics Continue vancomycin and Unasyn Low procalcitonin (3) Acute kidney injury: Code(s): N17.9 - Acute kidney failure, unspecified Status: Acute Assessment and Plan: Patient with acute kidney injury likely related cardiac arrest, diuretics -110/07 creatinine increased a little, possible secondary to V-tach/VFib, hypotension. Will continue to monitor -creatinine stable at 1.2 today -Urine output has been adequate -continue Lasix IV for volume overload -continue to monitor renal function, electrolytes and urine output (4) DM type 2 (diabetes mellitus, type 2): Qualifiers: Diabetes mellitus termite technician insulin use: without termite technician use Diabetes mellitus complication status: without complication Qualified Code(s): E11.9 - Type 2 diabetes mellitus without complications Code(s): E11.9 - Type 2 diabetes mellitus without complications Status: Acute Assessment and Plan: Patient was significantly hyperglycemic on admission, was placed on insulin infusion which is currently off Continue Accu-Cheks and sliding scale insulin. Changed to q.4 hours -continue Lantus increased dose (5) Nonischemic cardiomyopathy: Code(s): I42.8 - Other cardiomyopathies Status: Acute Assessment and Plan: nonischemic cardiomyopathy with EF of 20-25% on an echocardiogram done and 06/12/2021 -status post AICD -chest x-ray does not reveal significant pulmonary edema, will hold all diuresis at this time given decreased renal function and increase lactic acid -off IV fluids. Will give Lasix -discussed with Dr. Butterfield with Cardiology and no plans for further diagnostic workup including cardiac catheterization at this time -continue atorvastatin -continue to hold spironolactone, telmisartan and metoprolol at this time as patient on Levophed - BNP 2900 Echo Summary ? 1. Left ventricular chamber dimension is severely enlarged. ? 2. Left ventricular systolic function is severely reduced, estimated at 25
[2022-06-19 08:46] LABS: Vancomycin Trough 11.3 ug/mL (10.0-20.0)
[2022-06-19 09:46] LABS: Alveolar/Arterial O2 Gradient 156.1 mmHg; Base Excess ABG 4.8 mEq/l (+/-2.0); Fractional Inspired Oxygen 40 %; HCO3 ABG 29.6 mEq/l (22.0-26.0); Oxygen Content ABG 14.8 %vol (16.0-22.0); Oxygen Saturation ABG 95.7 % (95.0-100.0); Oxyhemoglobin 94.4 % THb (90.0-100.0); PCO2 ABG 45.1 mmHg (35.0-45.0); PO2 ABG 77.2 mmHg (80.0-100.0); PO2 FiO2 Ratio Arterial Blood 1.93 %; Total Hemoglobin 11.1 g/dL (12.0-18.0); pH ABG 7.435 (7.350-7.450)
[2022-06-19 09:47] LABS: Arterial Blood Gas Vent Mode SPONTANEOUS; Device VENTILATOR; Modified Allen's Test Pass; Site Drawn RIGHT RADIAL
[2022-06-19 09:48] LABS: Arterial Blood Gas PEEP 8 cmH2O; Arterial Blood Gas Pressure Support 5 cmH2O
--- NOTE | 2022-06-19 10:51 | PM.EVENT ---
Event Note Event Note Event Note: 12/16 PSV SBT done for close to 1 hour. RSBI, ABGI and Vitals are acceptable. Pt awake and following commands. Will extubate and monitor. He does have pulmonary edema and has been given Lasix. NPO for now. He is morbidly obese and will need Bipap PRN and at night for now.
--- NOTE | 2022-06-19 11:13 | PM.PNCARD ---
Progress Note: A&P Assessment and Plan (1) Cardiac arrest with ventricular fibrillation: Code(s): I46.9 - Cardiac arrest, cause unspecified; I49.01 - Ventricular fibrillation Status: Acute Assessment and Plan: Off pressors. DC amiodarone IV and resume oral amiodarone 200 mg daily. KCL 40 mg p.o. x1. Agree with diuresis. Monitor electrolytes keep potassium around 4.0 magnesium 2.0 as appropriate. Repeat ECG (2) Ventricular tachycardia: Code(s): I47.2 - Ventricular tachycardia Status: Acute Assessment and Plan: as above, sustained VT approximately 140 beats per minute this morning s/p external defibx1 successful. P.o. amiodarone to be started. If recurrent slower VT may need to lower VT detect and therapies. monitor for now. Will need electrophysiology evaluation/opinion (3) Hypoxic ischemic encephalopathy: Code(s): P91.60 - Hypoxic ischemic encephalopathy [HIE], unspecified Status: Acute Assessment and Plan: slow improvement. Weaning sedation. Remains intubated. Prognosis guarded. (4) Respiratory failure: Code(s): J96.90 - Respiratory failure, unspecified, unspecified whether with hypoxia or hypercapnia Status: Acute Assessment and Plan: Remains intubated. Wean ventilatory support as tolerated. Patient currently uncomfortable with low dose Precedex (5) Nonischemic cardiomyopathy: Code(s): I42.8 - Other cardiomyopathies Status: Acute Assessment and Plan: severe dilated nonischemic cardiomyopathy, status post ICD. EF 25% (6) Acute kidney injury: Code(s): N17.9 - Acute kidney failure, unspecified Status: Acute Assessment and Plan: Improved. Stable. Subjective Date/time seen: 06/19/22 11:13 Interval history: Follow-up visit in this 77-year-old man with: Longstanding nonischemic cardiomyopathy presenting to the hospital following out of hospital cardiac arrest with VT/VFib and appropriate response of his defibrillator. Despite this he was without a pulse for approximately 25 minutes at least. Patient is still intubated on the ventilator in the ICU he is re warmed and off sedation 06/15/2022 Patient remains intubated, following commands, eyes open more respiratory distress this morning On Precedex ventricular paced rhythm on telemetry occasional PVCs no sustained ventricular tachycardia. Unable to obtain history from the patient due to intubation mechanical ventilatory support. Low-grade fever. Remains on IV Unasyn. 06/16/2022 patient developed recurrent sustained ventricular tachycardia heart rate 140 beats per minute with hypotension status post defibrillation x1 with anabaptist of ventricular paced rhythm. Patient received oral amiodarone, IV amiodarone bolus and infusion initiated. Electrolytes stable, no reported issues overnight or early this morning as precipitating event. Patient remains intubated was off pressors. ICD VT 1 detect 162 beats per minute VT 2 detect 172 beats per minute Date of service 06/18/2022: He is responsive and following simple commands while sedated on the ventilator. Is having some ventricular ectopy and is in atrial flutter at this point. Date of service 06/19/2022: He was extubated today. His dyspneic no chest pain. Review of Systems Review of Systems: All systems reviewed & are unremarkable except as noted in HPI and below Constitutional: Constitutional: Denies chills Cardiovascular: Cardiovascular: Denies chest pain and Reports leg edema Respiratory: Respiratory: Reports dyspnea Gastrointestinal: Gastrointestinal: Denies hematochezia Genitourinary: Genitourinary: Denies hematuria Integumentary/Breasts: Skin/Breast: Denies wounds Neurologic: Denies confusion Psychiatric: Psychiatric: Denies confusion Exam Narrative: eyes open, moving head, tracking Const: General: comfortable Orientation/consciousness: oriented to person HEN
--- NOTE | 2022-06-19 11:20 | PCFNICU ---
ICU Rounding Note: Pt current nutrition is NPO. Last recorded weight is 109.4 kg. Bowel Motility:+BM reported 06/17 Labs Reviewed:Glu 180, BUN 36, Hct 30.0,Hgb 9.4, Alb 3.4 Meds Noted:Precedex, Levophed, Lasix, Lovenox,Atrovent,Vancomycin. Skin: WNL Additional Notes: Patient currently extubated. NPO. Plans for speech eval. Following daily in ICU rounds and reassessing every 3 days.
--- NOTE | 2022-06-19 11:21 | ECG_ITS ---
Measurements Intervals [place] Rate: 63 P: -89 ND: 168 QRS: -73 QRSD: 201 T: -28 QT: 545 QTc: 560 Interpretive Statements ELECTRONIC VENTRICULAR PACEMAKER BASELINE ARTIFACT- V4-V5 NO FURTHER INTERPRETATION IS POSSIBLE ATYPICAL ECG COMPARED TO ECG 06/18/2022 12:02:05 NO SIGNIFICANT CHANGES Electronically Signed On 06-19-2022 15:32:41 PHARMACY TECHNICIAN PER DIEM by Niels Brower D.O.
[2022-06-19 11:56] LABS: Glucose Point of Care 211 mg/dl (65-105)
[2022-06-19] MEDS: KCL 40 MEQ/WATER 100 ML 100 ML 25 ML IVPB (12:55)
--- NOTE | 2022-06-19 13:04 | PCSTNOTE ---
ST attempted to complete bedside swallow evaluation on this date; nursing requested to postpone until 06/20 due to decrease in stability.
[2022-06-19] MEDS: dexmedeTOMIDine 400 MCG/100 ML 400 MCG/100 ML BAG 19.15 MCG IV CONT (15:07)
--- NOTE | 2022-06-19 16:17 | PM.IMPN ---
Progress Note: A&P Assessment and Plan (1) Cardiac arrest with ventricular fibrillation: Code(s): I46.9 - Cardiac arrest, cause unspecified; I49.01 - Ventricular fibrillation Status: Acute Assessment and Plan: Patient presented with VFib arrest, ROSC within 15 minutes after EMS arrived and started CPR, (total down time was about 25 minutes.) -patient status post target temperature management, -elevated troponins likely related to cardiac arrest -post target temperature management he is following simple commands with all 4 extremities 06/16/2022: Patient had slow VFib/V-tach with no ICD discharge, requiring defibrillation x1, electrolytes were within normal limits patient was given amiodarone bolus and started on amiodarone infusion,. Cardiology was present during the episode. Cardiology going to evaluate AICD discharge thresholds Continue Levophed for shock and blood pressure support 06/14/2022 echocardiogram showed LV chamber dimension is severely enlarged, severely reduced LV systolic function with EF of 25-30%, mild aortic valve sclerosis, trace mitral valve regurg left atrial chamber dimension is mildly enlarged. (2) Acute respiratory failure with hypoxia: Code(s): J96.01 - Acute respiratory failure with hypoxia Status: Acute Assessment and Plan: Acute respiratory failure likely related to cardiac arrest -patient was intubated ED on 06/11/2022 -continue CMV mode of ventilation, peep of 8 in 30% FiO2, wean FiO2 to maintain O2 sats greater than 92% -off all sedation except Precedex -continue bronchodilators - Chest x-ray reviewed - 06/18 PSV weaning trial was performed. Patient quickly failed trial due to high RSBI with respiratory rate up to 40 and obvious respiratory distress and use of accessory muscles On vancomycin and Unasyn 11 9 extubated this a.m. but needed to be reintubated again this evening (3) Acute kidney injury: Code(s): N17.9 - Acute kidney failure, unspecified Status: Acute Assessment and Plan: Patient with acute kidney injury likely related cardiac arrest, diuretics creatinine increased a little to 1.4 06/17, possible secondary to V-tach/VFib, hypotension. Will continue to monitor -creatinine down to 1.2 -Urine output has been adequate -continue Lasix IV for volume overload -continue to monitor renal function, electrolytes and urine output (4) DM type 2 (diabetes mellitus, type 2): Qualifiers: Diabetes mellitus complication status: without complication Diabetes mellitus longterm insulin use: without longterm use Qualified Code(s): E11.9 - Type 2 diabetes mellitus without complications Code(s): E11.9 - Type 2 diabetes mellitus without complications Status: Acute Assessment and Plan: Patient was significantly hyperglycemic on admission, was placed on insulin infusion which is currently off Continue Accu-Cheks and sliding scale insulin -continue Lantus (5) Nonischemic cardiomyopathy: Code(s): I42.8 - Other cardiomyopathies Status: Acute Assessment and Plan: nonischemic cardiomyopathy with EF of 20-25% on an echocardiogram done and 06/12/2021 -status post AICD -chest x-ray does not reveal significant pulmonary edema, will hold all diuresis at this time given decreased renal function and increase lactic acid -of IV fluids. Will give Lasix -discussed with Dr. Butetrfield with Cardiology and no plans for further diagnostic workup including cardiac catheterization at this time -continue atorvastatin -continue to hold spironolactone, telmisartan and metoprolol at this time as patient on Levophed - BNP 20 Echo Summary ? 1. Left ventricular chamber dimension is severely enlarged. ? 2. Left ventricular systolic function is severely reduced, estimated at 25-30%. ? 3. There is mild aortic valve sclerosis. ? 4. There is trace mitral valve regurgitation. ? 5. Left atrial chamber dimension is mildly enlarged. (6) Sepsis:
--- NOTE | 2022-06-19 16:55 | P.PNCROSS_ITS ---
Event Note Event Note Event Note: The patient was having respiratory stridor and needed to be reintubated. The p atient was very anxious and was breathing approximately 42 respirations a minute and his heart rate was in the 100s.
--- NOTE | 2022-06-19 16:56 | WPDPROCEDUR ---
Procedures Intubation Sedative: etomidate Mg given: 40 Paralytic: rocuronium Mg given: 40 Laryngoscope: fiber optic video scope Assist device used: fiber optic device ET tube size: 7.5 Tube secured depth (cm): 23 Tube secured location: lips Tube placement confirmation: visualized tube passing through cords, equal breath sounds bilaterally and confirmation by capnometry Additional comments: ET tube 2.0 cm above the angelita.
[2022-06-19] MEDS: ETOMIDATE 20 MG/10 ML AMPUL 40 MG IV PUSH (16:59)
[2022-06-19] MEDS: ROCURONIUM BROMIDE 50 MG/5 ML VIAL 40 MG IV PUSH (16:59)
[2022-06-19] MEDS: methylPREDNISolone SOD SUCC 40 MG VIAL IV PUSH (17:01)
[2022-06-19] MEDS: dexmedeTOMIDine 400 MCG/100 ML 400 MCG/100 ML BAG 24.62 MCG IV CONT (17:23)
[2022-06-19] MEDS: PROPOFOL IV EMULSION 100 ML 32.43 MG IV CONT (19:39)
[2022-06-19 20:38] LABS: Glucose Point of Care 234 mg/dl (65-105)
[2022-06-19] MEDS: INSULIN GLARGINE (*BKC) 100 UNITS/ML 35 UNITS SUB-Q (20:39)
[2022-06-19] MEDS: dexmedeTOMIDine 400 MCG/100 ML 400 MCG/100 ML BAG 21.88 MCG IV CONT (21:23)
[2022-06-19] MEDS: PROPOFOL IV EMULSION 100 ML 22.7 MG IV CONT (23:06)
[2022-06-20] VITALS (116 sets, daily range): BP systolic 87–116; BP diastolic 54–89; PULSE 57–66; RESP 14–24; TEMP 35.9–37.3; O2SAT 80–100
[2022-06-20] MEDS: AMPICILLIN SULB 3 GM/NS 100 ML 3 GM/100 ML VIAL IVPB ×5 (00:10→23:46)
[2022-06-20 00:16] LABS: Glucose Point of Care 218 mg/dl (65-105)
[2022-06-20] MEDS: INSULIN ASPART (*BKC) 100 UNITS/ML SUB-Q ×4 (00:18→12:10)
[2022-06-20] MEDS: IPRATROPIUM BR 0.02% INH SOLN 0.5 MG/2.5 ML VIAL INHALATION ×4 (02:20→20:28)
[2022-06-20] MEDS: ALBUTEROL SULFATE NEB 2.5 MG/3 ML INH INHALATION ×4 (02:20→20:28)
[2022-06-20] MEDS: dexmedeTOMIDine 400 MCG/100 ML 400 MCG/100 ML BAG 16.41 MCG IV CONT (03:43)
[2022-06-20] MEDS: PROPOFOL IV EMULSION 100 ML 19.46 MG IV CONT ×2 (04:00→23:46)
[2022-06-20 04:27] LABS: Glucose Point of Care 207 mg/dl (65-105)
[2022-06-20 04:40] LABS: Glucose Point of Care 236 mg/dl (65-105)
[2022-06-20 04:55] LABS: Hematocrit 31.3 % (42.0-52.0); Hemoglobin 9.9 g/dL (14.0-18.0); Mean Corpuscular HGB Conc 31.6 g/dl (32-36); Mean Corpuscular Volume 98.1 fl (80-100); Mean Platelet Volume 10.7 fl (7.4-10.4); Platelet Count Result 171 k/mm3 (150-375); Red Blood Count 3.19 M/mm3 (4.6-6.20); Red Cell Distribution Width 13.2 % (11.5-14.5); White Blood Count 8.9 K/mm3 (4.5-10.0)
[2022-06-20 05:41] LABS: Alanine Aminotransferase 46 U/L (6-50); Albumin Level 3.3 g/dL (3.5-5.1); Alkaline Phosphatase 82 U/L (38-126); Anion Gap 14 mmol/L (8-16); Aspartate Amino Transferase 56 U/L (17-59); Bilirubin,Total 0.5 mg/dL (0.2-1.3); Blood Urea Nitrogen 47 mg/dL (9-20); Calcium 8.7 mg/dL (8.4-10.2); Carbon Dioxide 26 mmol/L (22-30); Chloride 100 mmol/L (98-107); Estimated CRCL calculation 30 ml/min; Estimated Glomerular Filt Rate 29; Glucose 225 mg/dL (65-110); Magnesium 2.2 mg/dL (1.6-2.3); Phosphorus 4.7 mg/dL (2.5-4.5); Sodium 140 mmol/L (137-145)
[2022-06-20] MEDS: CENTRAL LINE FLUSH 10 ML IV PUSH ×3 (06:06→20:42)
[2022-06-20 06:13] LABS: Alveolar/Arterial O2 Gradient 60.2 mmHg; Arterial Blood Gas Vent Mode CMV; Arterial Blood Gas Ventilator rate 16 /MIN; Base Excess ABG 2.5 mEq/l (+/-2.0); Device VENTILATOR; Fractional Inspired Oxygen 30 %; HCO3 ABG 27.5 mEq/l (22.0-26.0); Modified Allen's Test Unable to perform; Oxygen Content ABG 15.5 %vol (16.0-22.0); Oxygen Saturation ABG 97.7 % (95.0-100.0); Oxyhemoglobin 96.5 % THb (90.0-100.0); PCO2 ABG 44.2 mmHg (35.0-45.0); PO2 ABG 101.8 mmHg (80.0-100.0); PO2 FiO2 Ratio Arterial Blood 3.39 %; Site Drawn RIGHT RADIAL; Total Hemoglobin 11.3 g/dL (12.0-18.0); pH ABG 7.412 (7.350-7.450)
[2022-06-20 06:14] LABS: Arterial Blood Gas PEEP 8 cmH2O; Arterial Blood Gas Tidal Volume 450 ml
[2022-06-20 07:46] LABS: Triglycerides 113 mg/dL (<150)
[2022-06-20] MEDS: ALBUMIN HUMAN 5% 25 GM/500 ML BTL IV CONT (08:34)
[2022-06-20] MEDS: ATORVASTATIN 40 MG TABLET PO (08:36)
[2022-06-20] MEDS: MINERAL OIL/WHITE PETROLATUM OINTMENT 1 APPLIC EACH EYE ×2 (08:36→20:42)
[2022-06-20] MEDS: ENOXAPARIN 40 MG/0.4 ML SYRINGE SUB-Q (08:36)
[2022-06-20] MEDS: AMIODARONE HCL 200 MG TABLET PO (08:36)
[2022-06-20] MEDS: PANTOPRAZOLE SODIUM IV 40 MG VIAL IV PUSH (08:36)
--- NOTE | 2022-06-20 08:37 | PCSTNOTE ---
Order for Bedside Swallow Evaluation cancelled as patient has been intubated. Please re-order when appropriate.
[2022-06-20] MEDS: PROPOFOL IV EMULSION 100 ML 12.97 MG IV CONT (09:09)
[2022-06-20] MEDS: dexmedeTOMIDine 400 MCG/100 ML 400 MCG/100 ML BAG 10.94 MCG IV CONT ×2 (09:11→17:47)
--- NOTE | 2022-06-20 09:12 | WPDINTPN ---
Progress Note: A&P Assessment and Plan (1) Acute respiratory failure with hypoxia: Code(s): J96.01 - Acute respiratory failure with hypoxia Status: Acute Assessment and Plan: Acute respiratory failure likely related to cardiac arrest -patient was intubated ED on 06/11/2022 -patient was extubated on06/19 after weaning trials for couple of days. After few hours patient became tachypneic, with increased work of breathing and respiratory distress. Patient was given additional dose of Lasix and was placed on BiPAP. On BiPAP patient initially improved later deteriorated had to be intubated. Post extubation I did not hear any stridor on exam. Patient was wheezing and grunting but it was not inspiratory stridor. Later I was told by the nursing staff the patient was stridorous prior to re-intubation. I will treat him with a short course of Solu-Medrol -continue CMV mode of ventilation, peep of 8 in 30% FiO2, wean FiO2 to maintain O2 sats greater than 92% -sedated with propofol and Precedex -continue bronchodilators - Chest x-ray reviewed Continue vancomycin and Unasyn Low procalcitonin (2) Cardiac arrest with ventricular fibrillation: Code(s): I46.9 - Cardiac arrest, cause unspecified; I49.01 - Ventricular fibrillation Status: Acute Assessment and Plan: Patient presented with VFib arrest, ROSC within 15 minutes after EMS arrived and started CPR, (total down time was about 25 minutes.) -patient status post target temperature management, -elevated troponins likely related to cardiac arrest -post target temperature management he is following simple commands with all 4 extremities 06/16/2022: Patient had slow VFib/V-tach with no ICD discharge, requiring defibrillation x1, electrolytes were within normal limits patient was given amiodarone bolus and started on amiodarone infusion,. Cardiology was present during the episode. Cardiology going to evaluate AICD discharge thresholds Cardiology has switched amiodarone infusion to p.o. amiodarone now 06/14/2022 echocardiogram showed LV chamber dimension is severely enlarged, severely reduced LV systolic function with EF of 25-30%, mild aortic valve sclerosis, trace mitral valve regurg left atrial chamber dimension is mildly enlarged. (3) Acute kidney injury: Code(s): N17.9 - Acute kidney failure, unspecified Status: Acute Assessment and Plan: Patient with acute kidney injury likely related cardiac arrest, diuretics Patient presented with elevated creatinine but improved with IV fluids Patient was given diuretics yesterday and creatinine has now increased to 2.2 Hold further diuretics Will give some albumin to expand intravascular volume -continue to monitor renal function, electrolytes and urine output (4) DM type 2 (diabetes mellitus, type 2): Qualifiers: Diabetes mellitus complication status: without complication Diabetes mellitus long-term insulin use: without terminal superintendent use Qualified Code(s): E11.9 - Type 2 diabetes mellitus without complications Code(s): E11.9 - Type 2 diabetes mellitus without complications Status: Acute Assessment and Plan: Patient was significantly hyperglycemic on admission, was placed on insulin infusion which is currently off Continue Accu-Cheks and sliding scale insulin. Changed to q.4 hours -continue Lantus (5) Nonischemic cardiomyopathy: Code(s): I42.8 - Other cardiomyopathies Status: Acute Assessment and Plan: nonischemic cardiomyopathy with EF of 20-25% on an echocardiogram done and 06/12/2021 -status post AICD -chest x-ray does not reveal significant pulmonary edema, will hold all diuresis at this time given decreased renal function and increase lactic acid -off IV fluids. -discussed with Dr. Butterfield with Cardiology and no plans for further diagnostic workup including cardiac catheterization at this time -continue atorvastatin -continue to hold spironolactone, telmisar
--- NOTE | 2022-06-20 09:20 | PM.PNCARD ---
Progress Note: A&P Assessment and Plan (1) Cardiac arrest with ventricular fibrillation: Code(s): I46.9 - Cardiac arrest, cause unspecified; I49.01 - Ventricular fibrillation Status: Acute Assessment and Plan: Off pressors. Continue amiodarone. Monitor electrolytes keep potassium around 4.0 magnesium 2.0 as appropriate. (2) Ventricular tachycardia: Code(s): I47.2 - Ventricular tachycardia Status: Acute Assessment and Plan: as above, sustained VT approximately 140 beats per minute this morning s/p external defibx1 successful. P.o. amiodarone to be started. If recurrent slower VT may need to lower VT detect and therapies. monitor for now. Will need electrophysiology evaluation/opinion (3) Hypoxic ischemic encephalopathy: Code(s): P91.60 - Hypoxic ischemic encephalopathy [HIE], unspecified Status: Acute Assessment and Plan: slow improvement. Weaning sedation. Remains intubated. Prognosis guarded. (4) Respiratory failure: Code(s): J96.90 - Respiratory failure, unspecified, unspecified whether with hypoxia or hypercapnia Status: Acute Assessment and Plan: Remains intubated. Wean ventilatory support as tolerated. (5) Nonischemic cardiomyopathy: Code(s): I42.8 - Other cardiomyopathies Status: Acute Assessment and Plan: severe dilated nonischemic cardiomyopathy, status post ICD. EF 25% (6) Acute kidney injury: Code(s): N17.9 - Acute kidney failure, unspecified Status: Acute Assessment and Plan: A bit worse today following aggressive diuretics yesterday. Continue to follow Subjective Date/time seen: 06/20/22 09:20 Interval history: Follow-up visit in this 77-year-old man with: Longstanding nonischemic cardiomyopathy presenting to the hospital following out of hospital cardiac arrest with VT/VFib and appropriate response of his defibrillator. Despite this he was without a pulse for approximately 25 minutes at least. Patient is still intubated on the ventilator in the ICU he is re warmed and off sedation 06/15/2022 Patient remains intubated, following commands, eyes open more respiratory distress this morning On Precedex ventricular paced rhythm on telemetry occasional PVCs no sustained ventricular tachycardia. Unable to obtain history from the patient due to intubation mechanical ventilatory support. Low-grade fever. Remains on IV Unasyn. 06/16/2022 patient developed recurrent sustained ventricular tachycardia heart rate 140 beats per minute with hypotension status post defibrillation x1 with yarsani of ventricular paced rhythm. Patient received oral amiodarone, IV amiodarone bolus and infusion initiated. Electrolytes stable, no reported issues overnight or early this morning as precipitating event. Patient remains intubated was off pressors. ICD VT 1 detect 162 beats per minute VT 2 detect 172 beats per minute Date of service 06/18/2022: He is responsive and following simple commands while sedated on the ventilator. Is having some ventricular ectopy and is in atrial flutter at this point. Date of service 06/19/2022: He was extubated today. His dyspneic no chest pain. Date of service 06/20/2022: Unfortunately failed extubation yesterday and needed to be reintubated around 6:00 p.m.. Rhythm stable. Review of Systems Review of Systems: All systems reviewed & are unremarkable except as noted in HPI and below ROS unobtainable: Yes unobtainable due to endotracheal tube, unobtainable due to medical condition and unobtainable due to mental status Constitutional: Constitutional: Denies chills Cardiovascular: Cardiovascular: Denies chest pain, Reports leg edema and Reports dyspnea Respiratory: Respiratory: Reports dyspnea Gastrointestinal: Gastrointestinal: Denies hematochezia Genitourinary: Genitourinary: Denies hematuria Integumentary/Breasts: Skin/Breast: Denies wounds Ne
[2022-06-20 09:21] LABS: Glucose Point of Care 244 mg/dl (65-105)
--- NOTE | 2022-06-20 11:18 | PCFNICU ---
ICU Rounding Note: Pt current nutrition is Vital AF 1.2 at 45 ml/hr. Last recorded weight is 107.4 kg, down from 113 kg on admit. Bowel Motility:+Bm reported 06/17 Labs Reviewed:Glu 225, GFR 29, BUN 47, Cr 2.2,Alb 3.3 Meds Noted:Precedex, Propofol 20 mics or 12.97 ml/lg=350 kcals. Skin: WNL Additional Notes: Patient remains on mechanical vent and tube feedings of Vital AF 1.2 at 45 ml/hr. Propofol infusion coming down. Plans to meet goal rate at 65 ml/hr. Free water flush 30 ml a 4 hours. Agree with diet orders. Following daily in ICU rounds. follow up T/F monitor feeding tolerance, per policy gastric residual, wt and labs.
[2022-06-20] MEDS: methylPREDNISolone SOD SUCC 40 MG VIAL IV PUSH ×3 (11:51→20:42)
[2022-06-20 12:09] LABS: Glucose Point of Care 266 mg/dl (65-105)
[2022-06-20] MEDS: ALBUMIN HUMAN 25% 25 GM/100 ML 100 ML IVPB ×3 (12:10→23:46)
[2022-06-20 17:06] LABS: Glucose Point of Care 166 mg/dl (65-105)
--- NOTE | 2022-06-20 17:33 | PM.IMPN ---
Progress Note: A&P Assessment and Plan (1) Cardiac arrest with ventricular fibrillation: Code(s): I46.9 - Cardiac arrest, cause unspecified; I49.01 - Ventricular fibrillation Status: Acute Assessment and Plan: Patient presented with VFib arrest, ROSC within 15 minutes after EMS arrived and started CPR, (total down time was about 25 minutes.) -patient status post target temperature management, -elevated troponins likely related to cardiac arrest -post target temperature management he is following simple commands with all 4 extremities 06/16/2022: Patient had slow VFib/V-tach with no ICD discharge, requiring defibrillation x1, electrolytes were within normal limits patient was given amiodarone bolus and started on amiodarone infusion,. Cardiology was present during the episode. Cardiology going to evaluate AICD discharge thresholds Continue Levophed for shock and blood pressure support 06/14/2022 echocardiogram showed LV chamber dimension is severely enlarged, severely reduced LV systolic function with EF of 25-30%, mild aortic valve sclerosis, trace mitral valve regurg left atrial chamber dimension is mildly enlarged. 06/20/2022 interval history: patient was extubated on . however developed increased respiratory distress and hence placed on BiPAP. he was in respiratory distress while on BiPAP. and patient was reintubate currently on vent, patient with cardiac rest secondary to ventricular fibrillation, seen by welding machine operator plasma arc recommending hydrogenation still operator evaluation, patient is seen by explosion welder and appreciate will continue to monitor. (2) Acute respiratory failure with hypoxia: Code(s): J96.01 - Acute respiratory failure with hypoxia Status: Acute Assessment and Plan: Acute respiratory failure likely related to cardiac arrest -patient was intubated ED on 06/11/2022 -continue CMV mode of ventilation, peep of 8 in 30% FiO2, wean FiO2 to maintain O2 sats greater than 92% -off all sedation except Precedex -continue bronchodilators - Chest x-ray reviewed - 06/18 PSV weaning trial was performed. Patient quickly failed trial due to high RSBI with respiratory rate up to 40 and obvious respiratory distress and use of accessory muscles On vancomycin and Unasyn 11 9 extubated this a.m. but needed to be reintubated again this evening (3) Acute kidney injury: Code(s): N17.9 - Acute kidney failure, unspecified Status: Acute Assessment and Plan: Patient with acute kidney injury likely related cardiac arrest, diuretics creatinine increased a little to 1.4 06/17, possible secondary to V-tach/VFib, hypotension. Will continue to monitor -creatinine down to 1.2 -Urine output has been adequate -continue Lasix IV for volume overload -continue to monitor renal function, electrolytes and urine output (4) DM type 2 (diabetes mellitus, type 2): Qualifiers: Diabetes mellitus manager intermediate insulin use: without [facility] use Diabetes mellitus complication status: without complication Qualified Code(s): E11.9 - Type 2 diabetes mellitus without complications Code(s): E11.9 - Type 2 diabetes mellitus without complications Status: Acute Assessment and Plan: Patient was significantly hyperglycemic on admission, was placed on insulin infusion which is currently off Continue Accu-Cheks and sliding scale insulin -continue Lantus (5) Nonischemic cardiomyopathy: Code(s): I42.8 - Other cardiomyopathies Status: Acute Assessment and Plan: nonischemic cardiomyopathy with EF of 20-25% on an echocardiogram done and 06/12/2021 -status post AICD -chest x-ray does not reveal significant pulmonary edema, will hold all diuresis at this time given decreased renal function and increase lactic acid -of IV fluids. Will give Lasix -discussed with Dr. Butterfield with Cardiology and no plans for further diagnostic workup including cardiac catheterization at this time -continue atorvast
[2022-06-20] MEDS: PROPOFOL IV EMULSION 100 ML 16.22 MG IV CONT (17:46)
[2022-06-20 20:19] LABS: Glucose Point of Care 188 mg/dl (65-105)
[2022-06-20] MEDS: INSULIN GLARGINE (*BKC) 100 UNITS/ML 35 UNITS SUB-Q (20:42)
[2022-06-21] VITALS (37 sets, daily range): BP systolic 97–122; BP diastolic 61–73; PULSE 60–75; RESP 14–26; TEMP 36.2–37.3; O2SAT 94–99
[2022-06-21 00:05] LABS: Glucose Point of Care 240 mg/dl (65-105)
[2022-06-21] MEDS: INSULIN ASPART (*BKC) 100 UNITS/ML SUB-Q ×6 (00:05→19:59)
[2022-06-21] MEDS: IPRATROPIUM BR 0.02% INH SOLN 0.5 MG/2.5 ML VIAL INHALATION ×4 (02:13→20:21)
[2022-06-21] MEDS: dexmedeTOMIDine 400 MCG/100 ML 400 MCG/100 ML BAG 10.94 MCG IV CONT (02:13)
[2022-06-21] MEDS: ALBUTEROL SULFATE NEB 2.5 MG/3 ML INH INHALATION ×4 (02:14→20:21)
[2022-06-21] MEDS: PROPOFOL IV EMULSION 100 ML 19.46 MG IV CONT (04:33)
[2022-06-21] MEDS: CENTRAL LINE FLUSH 10 ML IV PUSH ×3 (05:22→20:04)
[2022-06-21] MEDS: AMPICILLIN SULB 3 GM/NS 100 ML 3 GM/100 ML VIAL IVPB ×3 (05:22→17:00)
[2022-06-21] MEDS: methylPREDNISolone SOD SUCC 40 MG VIAL IV PUSH (05:22)
[2022-06-21] MEDS: ALBUMIN HUMAN 25% 25 GM/100 ML 100 ML IVPB (05:22)
[2022-06-21 05:25] LABS: Glucose Point of Care 264 mg/dl (65-105)
[2022-06-21 05:32] LABS: Hematocrit 28.1 % (42.0-52.0); Hemoglobin 8.9 g/dL (14.0-18.0); Mean Corpuscular HGB Conc 31.7 g/dl (32-36); Mean Corpuscular Hemoglobin 30.6 pg (26-34); Mean Corpuscular Volume 96.6 fl (80-100); Mean Platelet Volume 10.9 fl (7.4-10.4); Platelet Count Result 176 k/mm3 (150-375); Red Blood Count 2.91 M/mm3 (4.6-6.20); Red Cell Distribution Width 13.2 % (11.5-14.5); White Blood Count 7.7 K/mm3 (4.5-10.0)
[2022-06-21 05:39] LABS: Alanine Aminotransferase 52 U/L (6-50); Albumin Level 3.6 g/dL (3.5-5.1); Alkaline Phosphatase 80 U/L (38-126); Anion Gap 13 mmol/L (8-16); Aspartate Amino Transferase 46 U/L (17-59); Bilirubin,Total 0.5 mg/dL (0.2-1.3); Blood Urea Nitrogen 64 mg/dL (9-20); Calcium 8.8 mg/dL (8.4-10.2); Carbon Dioxide 25 mmol/L (22-30); Chloride 100 mmol/L (98-107); Estimated CRCL calculation 36 ml/min; Estimated Glomerular Filt Rate 37; Glucose 242 mg/dL (65-110); Magnesium 2.3 mg/dL (1.6-2.3); Phosphorus 4.6 mg/dL (2.5-4.5); Potassium 4.4 mmol/L (3.4-5.0); Sodium 138 mmol/L (137-145)
[2022-06-21 05:55] LABS: Vancomycin Trough 19.9 ug/mL (10.0-20.0)
[2022-06-21 05:58] LABS: Alveolar/Arterial O2 Gradient 62.9 mmHg; Base Excess ABG 1.6 mEq/l (+/-2.0); Carboxyhemoglobin 0.3 % THb (0-2.0); Fractional Inspired Oxygen 30 %; HCO3 ABG 26.2 mEq/l (22.0-26.0); Methemoglobin ABG 0.2 %THb (0-1.5); Oxygen Content ABG 16.1 %vol (16.0-22.0); Oxygen Saturation ABG 97.8 % (95.0-100.0); Oxyhemoglobin 96.3 % THb (90.0-100.0); PCO2 ABG 41.2 mmHg (35.0-45.0); PO2 ABG 102.6 mmHg (80.0-100.0); PO2 FiO2 Ratio Arterial Blood 3.42 %; Reduced Hemoglobin 3.2 %THb (0-5.0); Total Hemoglobin 11.8 g/dL (12.0-18.0); pH ABG 7.421 (7.350-7.450)
[2022-06-21 05:59] LABS: Arterial Blood Gas PEEP 8 cmH2O; Arterial Blood Gas Tidal Volume 450 ml; Arterial Blood Gas Vent Mode CMV; Arterial Blood Gas Ventilator rate 16 /MIN; Device VENTILATOR; Modified Allen's Test Pass; Site Drawn RIGHT RADIAL
[2022-06-21 07:56] LABS: Glucose Point of Care 240 mg/dl (65-105)
--- NOTE | 2022-06-21 08:52 | WPDINTPN ---
Progress Note: A&P Assessment and Plan (1) Acute respiratory failure with hypoxia: Code(s): J96.01 - Acute respiratory failure with hypoxia Status: Acute Assessment and Plan: Acute respiratory failure likely related to cardiac arrest -patient was intubated ED on 06/11/2022 -patient was extubated on 06/19 after weaning trials for couple of days. After few hours patient became tachypneic, with increased work of breathing and respiratory distress. Patient was given additional dose of Lasix and was placed on BiPAP. On BiPAP patient initially improved later deteriorated had to be intubated. Post extubation I did not hear any stridor on exam. Patient was wheezing and grunting but it was not inspiratory stridor. Later I was told by the nursing staff the patient was stridorous prior to re-intubation. I will treat him with a short course of Solu-Medrol 06/21 -completed a course of Solu-Medrol. Cuff leak present today on exam. Failed PSV trial within minutes due to high RSBI. Placed on pressure support of 12/5. Continue as tolerated -continue CMV mode of ventilation, peep decreased to 5 and on 30% FiO2, wean FiO2 to maintain O2 sats greater than 92% -sedated with propofol and Precedex -continue bronchodilators - Chest x-ray reviewed Continue Unasyn. DC vancomycin 06/21 Low procalcitonin (2) Cardiac arrest with ventricular fibrillation: Code(s): I46.9 - Cardiac arrest, cause unspecified; I49.01 - Ventricular fibrillation Status: Acute Assessment and Plan: Patient presented with VFib arrest, ROSC within 15 minutes after EMS arrived and started CPR, (total down time was about 25 minutes.) -patient status post target temperature management, -elevated troponins likely related to cardiac arrest -post target temperature management he is following simple commands with all 4 extremities 06/16/2022: Patient had slow VFib/V-tach with no ICD discharge, requiring defibrillation x1, electrolytes were within normal limits patient was given amiodarone bolus and started on amiodarone infusion,. Cardiology was present during the episode. Cardiology going to evaluate AICD discharge thresholds Cardiology has switched amiodarone infusion to p.o. amiodarone now 06/14/2022 echocardiogram showed LV chamber dimension is severely enlarged, severely reduced LV systolic function with EF of 25-30%, mild aortic valve sclerosis, trace mitral valve regurg left atrial chamber dimension is mildly enlarged. (3) Acute kidney injury: Code(s): N17.9 - Acute kidney failure, unspecified Status: Acute Assessment and Plan: Patient with acute kidney injury likely related cardiac arrest, diuretics Patient presented with elevated creatinine but improved with IV fluids 06/20 Patient was given diuretics yesterday and creatinine has now increased to 2.2 Hold further diuretics Patient was given albumin to expand intravascular volume 06/21 -creatinine improved to 1.8 although BUN is still elevated. Hold Lasix for another 24 hours -continue to monitor renal function, electrolytes and urine output (4) DM type 2 (diabetes mellitus, type 2): Qualifiers: Diabetes mellitus filler leaf cutter long insulin use: without filler leaf cutter long use Diabetes mellitus complication status: without complication Qualified Code(s): E11.9 - Type 2 diabetes mellitus without complications Code(s): E11.9 - Type 2 diabetes mellitus without complications Status: Acute Assessment and Plan: Patient was significantly hyperglycemic on admission, was placed on insulin infusion which is currently off Continue Accu-Cheks and sliding scale insulin. Changed to q.4 hours -continue Lantus . Will give additional dose this morning (5) Nonischemic cardiomyopathy: Code(s): I42.8 - Other cardiomyopathies Status: Acute Assessment and Plan: nonischemic cardiomyopathy with EF of 20-25% on an echocardiogram done and 06/12/2021 -status post AICD -chest
[2022-06-21] MEDS: PANTOPRAZOLE SODIUM IV 40 MG VIAL IV PUSH (08:56)
[2022-06-21] MEDS: AMIODARONE HCL 200 MG TABLET PO (08:56)
[2022-06-21] MEDS: ENOXAPARIN 40 MG/0.4 ML SYRINGE SUB-Q (08:56)
[2022-06-21] MEDS: INSULIN GLARGINE (*BKC) 100 UNITS/ML 15 UNITS SUB-Q (09:02)
[2022-06-21] MEDS: ATORVASTATIN 40 MG TABLET PO (09:10)
--- NOTE | 2022-06-21 11:04 | PCFNICU ---
ICU Rounding Note: Pt current nutrition is Vital 1.2 @ 45 ml/h. Nutrition recommendation: Continue current rate as pt will go back on propofol after breathing trial. Goal rate is Vital 1.2 @ 65 ml/h Last recorded weight is 111 kg. Bowel Motility: Last BM 06/17/22 Labs Reviewed: BUN 64, Creat 1.8, Glu 240 Meds Noted: Precedex, versed; Zofran Skin: Blisters Additional Notes: Propofol currently stopped for trial. Was running at 16.22 ml/h for total 428 kcals. Following daily in ICU rounds. follow up T/F monitor feeding tolerance, per policy gastric residual, wt and labs.
[2022-06-21] MEDS: dexmedeTOMIDine 400 MCG/100 ML 400 MCG/100 ML BAG 13.68 MCG IV CONT ×2 (11:20→18:14)
--- NOTE | 2022-06-21 11:52 | PM.PNCARD ---
Progress Note: A&P Assessment and Plan (1) Cardiac arrest with ventricular fibrillation: Code(s): I46.9 - Cardiac arrest, cause unspecified; I49.01 - Ventricular fibrillation Status: Acute (2) Presence of combination internal cardiac defibrillator (ICD) and pacemaker: Code(s): Z95.810 - Presence of automatic (implantable) cardiac defibrillator Status: Acute (3) Nonischemic cardiomyopathy: Code(s): I42.8 - Other cardiomyopathies Status: Acute Plan he 77-year-old man with: Long history of nonischemic dilated cardiomyopathy has been stable recently on the medical regimen including low-dose of amiodarone, low-dose metoprolol and telmisartan. He he had lethal ventricular arrhythmia which was a appropriately treated and terminated by his defibrillator and following that has been intubated sedated on ventilator support in the ICU. He does have more pulmonary congestion on chest x-ray today. His CHF regimen has not been resumed since his admission because of hypotension/hemodynamic concerns and renal function concerns. Today I will advance his amiodarone dosage to 400 mg daily since 200 mg was his stable home dosage. I will also start modest dose of metoprolol since he is off of inotropes. It is tempting to start Entresto for his low ejection fraction. Blood pressure however is in the 90s and so I will forego that at least today. Prognosis is obviously guarded given his advanced age, severe instability and lethal arrhythmias as described in previous notes . The patient may be a candidate for follow-up angiography if he becomes more stabilized survives all of this. I do not see a immediate/compelling reason to bring this patient to the rn labor and delivery for a follow-up angiogram. The incident event was discussed in detail again with his this morning he was seated in a chair while they were watching a baseball game together and he abruptly lost consciousness without any antecedent chest pain. Ramakrishna Tolentino MD [facility]. Subjective Date/time seen: date of service:06/21/22 11:52 Interval history: Follow-up visit in this 77-year-old man with: Longstanding nonischemic cardiomyopathy presenting to the hospital following out of hospital cardiac arrest with VT/VFib and appropriate response of his defibrillator. Despite this he was without a pulse for approximately 25 minutes at least. Patient is still intubated on the ventilator in the ICU he is re warmed and off sedation 06/15/2022 Patient remains intubated, following commands, eyes open more respiratory distress this morning On Precedex ventricular paced rhythm on telemetry occasional PVCs no sustained ventricular tachycardia. Unable to obtain history from the patient due to intubation mechanical ventilatory support. Low-grade fever. Remains on IV Unasyn. 06/16/2022 patient developed recurrent sustained ventricular tachycardia heart rate 140 beats per minute with hypotension status post defibrillation x1 with voodoo of ventricular paced rhythm. Patient received oral amiodarone, IV amiodarone bolus and infusion initiated. Electrolytes stable, no reported issues overnight or early this morning as precipitating event. Patient remains intubated was off pressors. ICD VT 1 detect 162 beats per minute VT 2 detect 172 beats per minute Date of service 06/18/2022: He is responsive and following simple commands while sedated on the ventilator. Is having some ventricular ectopy and is in atrial flutter at this point. Date of service 06/19/2022: He was extubated today. His dyspneic no chest pain. Date of service 06/20/2022: Unfortunately failed extubation yesterday and needed to be reintubated around 6:00 p.m.. Rhythm stable. Date of service 05/21/2022: Patient remains intubated sedated dated on ventilator support. Brief run of nonsustained VT of 5 beats this morning no other arrhythmias baseline rhythm was electronically paced Exam Narra
[2022-06-21 11:55] LABS: Glucose Point of Care 237 mg/dl (65-105)
[2022-06-21] MEDS: METOPROLOL SUCCINATE EXT REL 12.5 MG TABCR PO (12:43)
[2022-06-21] MEDS: PROPOFOL IV EMULSION 100 ML 16.22 MG IV CONT (12:51)
[2022-06-21 16:37] LABS: Glucose Point of Care 253 mg/dl (65-105)
--- NOTE | 2022-06-21 17:24 | PM.IMPN ---
Progress Note: A&P Assessment and Plan (1) Cardiac arrest with ventricular fibrillation: Code(s): I46.9 - Cardiac arrest, cause unspecified; I49.01 - Ventricular fibrillation Status: Acute Assessment and Plan: Patient presented with VFib arrest, ROSC within 15 minutes after EMS arrived and started CPR, (total down time was about 25 minutes.) -patient status post target temperature management, -elevated troponins likely related to cardiac arrest -post target temperature management he is following simple commands with all 4 extremities 06/16/2022: Patient had slow VFib/V-tach with no ICD discharge, requiring defibrillation x1, electrolytes were within normal limits patient was given amiodarone bolus and started on amiodarone infusion,. Cardiology was present during the episode. Cardiology going to evaluate AICD discharge thresholds Continue Levophed for shock and blood pressure support 06/14/2022 echocardiogram showed LV chamber dimension is severely enlarged, severely reduced LV systolic function with EF of 25-30%, mild aortic valve sclerosis, trace mitral valve regurg left atrial chamber dimension is mildly enlarged. 06/21/2022 interval history: patient was extubated on . however developed increased respiratory distress and hence placed on BiPAP. he was in respiratory distress while on BiPAP. and patient was reintubate currently on vent, again today patient was given trial of weaning however was not able to tolerate and continue on ventilator, patient with cardiac rest secondary to ventricular fibrillation, seen by chain mender recommending ldr rn evaluation, and patient may benefit with repeat cardiac catheterization once clinically stable, patient is seen by incubator operator and appreciate will continue to monitor. (2) Acute respiratory failure with hypoxia: Code(s): J96.01 - Acute respiratory failure with hypoxia Status: Acute Assessment and Plan: Acute respiratory failure likely related to cardiac arrest -patient was intubated ED on 06/11/2022 -continue CMV mode of ventilation, peep of 8 in 30% FiO2, wean FiO2 to maintain O2 sats greater than 92% -off all sedation except Precedex -continue bronchodilators - Chest x-ray reviewed - 06/18 PSV weaning trial was performed. Patient quickly failed trial due to high RSBI with respiratory rate up to 40 and obvious respiratory distress and use of accessory muscles On vancomycin and Unasyn 11 9 extubated this a.m. but needed to be reintubated again this evening (3) Acute kidney injury: Code(s): N17.9 - Acute kidney failure, unspecified Status: Acute Assessment and Plan: Patient with acute kidney injury likely related cardiac arrest, diuretics creatinine increased a little to 1.4 06/17, possible secondary to V-tach/VFib, hypotension. Will continue to monitor -creatinine down to 1.2 -Urine output has been adequate -continue Lasix IV for volume overload -continue to monitor renal function, electrolytes and urine output (4) DM type 2 (diabetes mellitus, type 2): Qualifiers: Diabetes mellitus supervisor intermediates insulin use: without supervisor intermediates use Diabetes mellitus complication status: without complication Qualified Code(s): E11.9 - Type 2 diabetes mellitus without complications Code(s): E11.9 - Type 2 diabetes mellitus without complications Status: Acute Assessment and Plan: Patient was significantly hyperglycemic on admission, was placed on insulin infusion which is currently off Continue Accu-Cheks and sliding scale insulin -continue Lantus (5) Nonischemic cardiomyopathy: Code(s): I42.8 - Other cardiomyopathies Status: Acute Assessment and Plan: nonischemic cardiomyopathy with EF of 20-25% on an echocardiogram done and 06/12/2021 -status post AICD -chest x-ray does not reveal significant pulmonary edema, will hold all diuresis at this time given decreased renal function and increas
[2022-06-21] MEDS: PROPOFOL IV EMULSION 100 ML 12.97 MG IV CONT (18:12)
[2022-06-21] MEDS: INSULIN GLARGINE (*BKC) 100 UNITS/ML 35 UNITS SUB-Q (20:01)
[2022-06-21 20:03] LABS: Glucose Point of Care 211 mg/dl (65-105)
[2022-06-21] MEDS: MINERAL OIL/WHITE PETROLATUM OINTMENT 1 APPLIC EACH EYE (20:04)
[2022-06-21 23:21] LABS: Glucose Point of Care 247 mg/dl (65-105)
[2022-06-22] VITALS (78 sets, daily range): BP systolic 87–111; BP diastolic 56–83; PULSE 60–120; RESP 16–33; TEMP 35.2–37.4; O2SAT 87–100
[2022-06-22] MEDS: PROPOFOL IV EMULSION 100 ML 11.68 MG IV CONT (00:40)
[2022-06-22] MEDS: dexmedeTOMIDine 400 MCG/100 ML 400 MCG/100 ML BAG 13.68 MCG IV CONT ×3 (00:40→15:32)
[2022-06-22] MEDS: AMPICILLIN SULB 3 GM/NS 100 ML 3 GM/100 ML VIAL IVPB ×4 (00:45→17:26)
[2022-06-22] MEDS: INSULIN ASPART (*BKC) 100 UNITS/ML SUB-Q ×2 (00:56→08:56)
[2022-06-22] MEDS: ALBUTEROL SULFATE NEB 2.5 MG/3 ML INH INHALATION ×4 (03:02→20:50)
[2022-06-22] MEDS: IPRATROPIUM BR 0.02% INH SOLN 0.5 MG/2.5 ML VIAL INHALATION ×4 (03:02→20:50)
[2022-06-22 04:37] LABS: Glucose Point of Care 183 mg/dl (65-105)
[2022-06-22 04:40] LABS: Hematocrit 30.6 % (42.0-52.0); Hemoglobin 9.5 g/dL (14.0-18.0); Mean Corpuscular Hemoglobin 30.6 pg (26-34); Mean Corpuscular Volume 98.7 fl (80-100); Mean Platelet Volume 10.6 fl (7.4-10.4); Platelet Count Result 197 k/mm3 (150-375); Red Cell Distribution Width 13.3 % (11.5-14.5); White Blood Count 7.4 K/mm3 (4.5-10.0)
[2022-06-22 04:55] LABS: Alanine Aminotransferase 46 U/L (6-50); Albumin Level 3.4 g/dL (3.5-5.1); Alkaline Phosphatase 85 U/L (38-126); Anion Gap 9 mmol/L (8-16); Aspartate Amino Transferase 35 U/L (17-59); Bilirubin,Total 0.5 mg/dL (0.2-1.3); Blood Urea Nitrogen 70 mg/dL (9-20); Calcium 8.7 mg/dL (8.4-10.2); Carbon Dioxide 28 mmol/L (22-30); Chloride 104 mmol/L (98-107); Estimated CRCL calculation 36 ml/min; Estimated Glomerular Filt Rate 37; Glucose 208 mg/dL (65-110); Magnesium 2.4 mg/dL (1.6-2.3); Phosphorus 3.5 mg/dL (2.5-4.5); Potassium 3.8 mmol/L (3.4-5.0); Sodium 141 mmol/L (137-145)
[2022-06-22 05:34] LABS: Fractional Inspired Oxygen 30 %
[2022-06-22] MEDS: CENTRAL LINE FLUSH 10 ML IV PUSH ×3 (06:06→21:00)
[2022-06-22 06:56] LABS: pH ABG 7.434 (7.350-7.450)
[2022-06-22 06:57] LABS: PCO2 ABG 40.2 mmHg (35.0-45.0); PO2 ABG 127.4 mmHg (80.0-100.0)
[2022-06-22 06:58] LABS: HCO3 ABG 26.3 mEq/l (22.0-26.0)
[2022-06-22 06:59] LABS: Oxygen Saturation ABG 98.6 % (95.0-100.0)
[2022-06-22 07:00] LABS: Alveolar/Arterial O2 Gradient 39.3 mmHg; Total Hemoglobin 11.3 g/dL (12.0-18.0)
[2022-06-22 07:02] LABS: Carboxyhemoglobin 0.5 % THb (0-2.0); Oxygen Content ABG 15.7 %vol (16.0-22.0); Oxyhemoglobin 97.4 % THb (90.0-100.0)
[2022-06-22 07:03] LABS: Methemoglobin ABG 0.1 %THb (0-1.5)
[2022-06-22 07:04] LABS: Modified Allen's Test Pass; PO2 FiO2 Ratio Arterial Blood 4.25 %; Site Drawn LEFT RADIAL
[2022-06-22 07:05] LABS: Arterial Blood Gas PEEP 8 cmH2O; Arterial Blood Gas Tidal Volume 450 ml; Arterial Blood Gas Vent Mode CMV; Arterial Blood Gas Ventilator rate 16 /MIN; Device VENTILATOR
[2022-06-22 08:25] LABS: Glucose Point of Care 205 mg/dl (65-105)
[2022-06-22] MEDS: PANTOPRAZOLE SODIUM IV 40 MG VIAL IV PUSH (08:53)
--- NOTE | 2022-06-22 08:54 | PM.PNCARD ---
Progress Note: A&P Assessment and Plan (1) Cardiac arrest with ventricular fibrillation: Code(s): I46.9 - Cardiac arrest, cause unspecified; I49.01 - Ventricular fibrillation Status: Acute (2) Presence of combination internal cardiac defibrillator (ICD) and pacemaker: Code(s): Z95.810 - Presence of automatic (implantable) cardiac defibrillator Status: Acute Plan 77-year-old man with severe dilated nonischemic cardiomyopathy condition remains relatively tenuous. Guideline directed medical therapy can not really not be started or initiated at this point his blood pressure is still too tenuous in the mid 90s. Chest x-ray does look better today will make another attempt at removing some fluid with diuresis today. Once he is off the ventilator and sedation altogether I would like to very cautiously in gradually start some Entresto. Started low-dose beta-marisela resuming yesterday. Depending on his overall condition and recovery we will consider a follow-up coronary angiogram at some point but once again there is no urgency to that. Ramakrishna Tolentino MD [facility] Subjective Date/time seen: Date of service:06/22/22 08:55 Interval history: Follow-up visit in this 77-year-old man with: Severe nonischemic cardiomyopathy with lethal ventricular arrhythmias admitted last week following out of hospital VT arrest which was terminated by his ICD. He was admitted to the ICU for evaluation and management following this. He remains intubated on ventilator support. He the propofol has been reduced this morning he is awake responsive and appears to be neurologically intact. Denies any chest pain occurrence following collapsing at home last week. Exam Narrative: eyes open, moving head, tracking Const: General: comfortable, in distress mild and respiratory and patient obtunded; No confusion Orientation/consciousness: oriented to person, patient oriented x3, No confusion and patient obtunded Other: Awake alert on the ventilator responsive to commands recognizes me and shaking my hand HENMT: Mouth: Yes moist mucous membranes Other: endotracheal tube/ intubated mechanical ventilatory support Eyes: Sclera: sclerae normal Other: Pupils equal and round Neck: Neck: supple Thyroid: thyroid normal Other: unable to assess JVD given his obesity /normal carotid pulses Resp: Effort & Inspection: normal respiratory effort Auscultation: clear to auscultation bilaterally Other: few central rhonchi noted Cardio: Rate: regular rate Rhythm: regular rhythm and abnormal rhythm regularly irregular Heart sounds: no murmurs GI: Inspection: normal to inspection Auscultation: normal bowel sounds Other: No hepatosplenomegaly Skin: General skin exam: normal color and no rashes or lesions noted Neuro: General: oriented to person, patient oriented x3, No confusion and patient obtunded Other: alert and responsive today Extrem: Right lower extremity: no edema Left lower extremity: no edema Other: Mild diffuse edema Psych: Mental Status: mental status grossly normal Other: Intubated and sedated Objective Data Vital Signs Vital Signs: Vital Signs - 24 hr 06/21/22 08:56 06/21/22 08:57 06/21/22 10:00 Temperature 37.3 C Pulse Rate 75 70 60 Respiratory Rate 26 H 25 H Blood Pressure 122/69 Pulse Oximetry 96 Oxygen Delivery Fraction of Inspired Oxygen 06/21/22 10:00 06/21/22 10:48 06/21/22 11:20 Temperature Pulse Rate 60 66 65 Respiratory Rate 22 H Blood Pressure Pulse Oximetry 97 Oxygen Delivery Mechanical Ventilation Fraction of Inspired Oxygen 30 06/21/22 12:51 06/21/22 13:53 06/21/22 13:56 Temperature Pulse Rate 60 60 60 Respiratory Rate 24 H 19 Blood Pressure Pulse Oximetry 94 Oxygen Delivery Mechanical Ventilation Fraction of Inspired Oxygen 30 06/21/22 12:00 06/21/22 12:00 06/21/22 12:00 Temperature Pulse Rate 63 Respirat
[2022-06-22] MEDS: MINERAL OIL/WHITE PETROLATUM OINTMENT 1 APPLIC EACH EYE ×2 (08:55→21:00)
[2022-06-22] MEDS: ENOXAPARIN 40 MG/0.4 ML SYRINGE SUB-Q (08:56)
[2022-06-22] MEDS: METOPROLOL SUCCINATE EXT REL 12.5 MG TABCR PO (08:56)
[2022-06-22] MEDS: ATORVASTATIN 40 MG TABLET PO (08:56)
[2022-06-22] MEDS: INSULIN GLARGINE (*BKC) 100 UNITS/ML 10 UNITS SUB-Q (08:57)
[2022-06-22] MEDS: ALBUMIN HUMAN 25% 25 GM/100 ML 100 ML IVPB ×2 (08:57→18:55)
[2022-06-22] MEDS: AMIODARONE HCL 200 MG TABLET 400 MG PO (08:57)
[2022-06-22] MEDS: FUROSEMIDE INJ 40 MG/4 ML VIAL IV PUSH ×2 (09:33→20:59)
--- NOTE | 2022-06-22 10:29 | WPDINTPN ---
Progress Note: A&P Assessment and Plan (1) Acute respiratory failure with hypoxia: Code(s): J96.01 - Acute respiratory failure with hypoxia Status: Acute Assessment and Plan: Acute respiratory failure likely related to cardiac arrest -patient was intubated ED on 06/11/2022 -patient was extubated on 06/19 after weaning trials for couple of days. After few hours patient became tachypneic, with increased work of breathing and respiratory distress. Patient was given additional dose of Lasix and was placed on BiPAP. On BiPAP patient initially improved later deteriorated had to be intubated. Post extubation I did not hear any stridor on exam. Patient was wheezing and grunting but it was not inspiratory stridor. Later I was told by the nursing staff the patient was stridorous prior to re-intubation. I will treat him with a short course of Solu-Medrol 06/21 -completed a course of Solu-Medrol. Cuff leak present today on exam. Failed PSV trial within minutes due to high RSBI. Placed on pressure support of 12/5. Continue as tolerated 06/22 -failed PSV weaning trial. Needs pressure support of 12/5 for adequate RSBI. Will continue as tolerated -otherwise he is on CMV mode of ventilation, at 30% FiO2, wean FiO2 to maintain O2 sats greater than 92% -sedated with propofol and Precedex -continue bronchodilators - Chest x-ray reviewed shows mild improve -will give albumin and Lasix today Continue Unasyn. DC vancomycin 06/21 Low procalcitonin (2) Cardiac arrest with ventricular fibrillation: Code(s): I46.9 - Cardiac arrest, cause unspecified; I49.01 - Ventricular fibrillation Status: Acute Assessment and Plan: Patient presented with VFib arrest, ROSC within 15 minutes after EMS arrived and started CPR, (total down time was about 25 minutes.) -patient status post target temperature management, -elevated troponins likely related to cardiac arrest -post target temperature management he is following simple commands with all 4 extremities 06/16/2022: Patient had slow VFib/V-tach with no ICD discharge, requiring defibrillation x1, electrolytes were within normal limits patient was given amiodarone bolus and started on amiodarone infusion,. Cardiology was present during the episode. Cardiology going to evaluate AICD discharge thresholds Cardiology has switched amiodarone infusion to p.o. amiodarone now 06/14/2022 echocardiogram showed LV chamber dimension is severely enlarged, severely reduced LV systolic function with EF of 25-30%, mild aortic valve sclerosis, trace mitral valve regurg left atrial chamber dimension is mildly enlarged. (3) Acute kidney injury: Code(s): N17.9 - Acute kidney failure, unspecified Status: Acute Assessment and Plan: Patient with acute kidney injury likely related cardiac arrest, diuretics Patient presented with elevated creatinine but improved with IV fluids 06/20 Patient was given diuretics yesterday and creatinine has now increased to 2.2 Hold further diuretics Patient was given albumin to expand intravascular volume 06/21 -creatinine improved to 1.8 and has remained stable over last 24 hours although BUN is still elevated. -will give dose of albumin followed by Lasix today -continue to monitor renal function, electrolytes and urine output (4) DM type 2 (diabetes mellitus, type 2): Qualifiers: Diabetes mellitus assisted insulin use: without assisted use Diabetes mellitus complication status: without complication Qualified Code(s): E11.9 - Type 2 diabetes mellitus without complications Code(s): E11.9 - Type 2 diabetes mellitus without complications Status: Acute Assessment and Plan: Patient was significantly hyperglycemic on admission, was placed on insulin infusion which is currently off Continue Accu-Cheks and sliding scale insulin. Changed to q.4 hours -continue Lantus and increased (5) Nonischemic cardiomyopathy: Code(s): I42.8
[2022-06-22] MEDS: PROPOFOL IV EMULSION 100 ML 9.73 MG IV CONT (10:49)
[2022-06-22 12:25] LABS: Glucose Point of Care 181 mg/dl (65-105)
[2022-06-22 17:37] LABS: Glucose Point of Care 136 mg/dl (65-105)
[2022-06-22] MEDS: PROPOFOL IV EMULSION 100 ML 12.97 MG IV CONT (20:57)
[2022-06-22] MEDS: INSULIN GLARGINE (*BKC) 100 UNITS/ML 45 UNITS SUB-Q (21:00)
[2022-06-22 21:09] LABS: Glucose Point of Care 176 mg/dl (65-105)
[2022-06-22] MEDS: dexmedeTOMIDine 400 MCG/100 ML 400 MCG/100 ML BAG 16.41 MCG IV CONT (21:55)
[2022-06-23] VITALS (53 sets, daily range): BP systolic 90–107; BP diastolic 60–87; PULSE 59–73; RESP 16–25; TEMP 36.8–37.3; O2SAT 95–100
[2022-06-23] MEDS: AMPICILLIN SULB 3 GM/NS 100 ML 3 GM/100 ML VIAL IVPB ×4 (00:30→17:51)
[2022-06-23 01:47] LABS: Glucose Point of Care 175 mg/dl (65-105)
[2022-06-23] MEDS: IPRATROPIUM BR 0.02% INH SOLN 0.5 MG/2.5 ML VIAL INHALATION ×4 (02:11→20:33)
[2022-06-23] MEDS: ALBUTEROL SULFATE NEB 2.5 MG/3 ML INH INHALATION ×4 (02:11→20:33)
[2022-06-23] MEDS: PROPOFOL IV EMULSION 100 ML 12.97 MG IV CONT ×2 (02:24→11:18)
[2022-06-23] MEDS: dexmedeTOMIDine 400 MCG/100 ML 400 MCG/100 ML BAG 16.41 MCG IV CONT (03:49)
[2022-06-23 05:27] LABS: Alveolar/Arterial O2 Gradient 83.4 mmHg; Base Excess ABG 5.2 mEq/l (+/-2.0); Carboxyhemoglobin 0.2 % THb (0-2.0); Fractional Inspired Oxygen 30 %; HCO3 ABG 29.8 mEq/l (22.0-26.0); Methemoglobin ABG 0.1 %THb (0-1.5); Oxyhemoglobin 94.8 % THb (90.0-100.0); PCO2 ABG 44.3 mmHg (35.0-45.0); PO2 ABG 78.5 mmHg (80.0-100.0); PO2 FiO2 Ratio Arterial Blood 2.62 %; Reduced Hemoglobin 4.9 %THb (0-5.0); Total Hemoglobin 10.4 g/dL (12.0-18.0); pH ABG 7.446 (7.350-7.450)
[2022-06-23 05:29] LABS: Device VENTILATOR; Modified Allen's Test Pass; Site Drawn RIGHT RADIAL
[2022-06-23 05:30] LABS: Arterial Blood Gas PEEP 8 cmH2O; Arterial Blood Gas Tidal Volume 450 ml; Arterial Blood Gas Vent Mode CMV; Arterial Blood Gas Ventilator rate 16 /MIN
[2022-06-23 05:38] LABS: Hematocrit 29.3 % (42.0-52.0); Hemoglobin 9.2 g/dL (14.0-18.0); Mean Corpuscular HGB Conc 31.4 g/dl (32-36); Mean Corpuscular Hemoglobin 31.1 pg (26-34); Mean Platelet Volume 10.2 fl (7.4-10.4); Platelet Count Result 207 k/mm3 (150-375); Red Blood Count 2.96 M/mm3 (4.6-6.20); Red Cell Distribution Width 13.3 % (11.5-14.5); White Blood Count 7.2 K/mm3 (4.5-10.0)
[2022-06-23] MEDS: CENTRAL LINE FLUSH 10 ML IV PUSH ×3 (05:43→20:23)
[2022-06-23 05:49] LABS: Triglycerides 121 mg/dL (<150)
[2022-06-23 05:50] LABS: Alanine Aminotransferase 38 U/L (6-50); Albumin Level 3.4 g/dL (3.5-5.1); Alkaline Phosphatase 77 U/L (38-126); Anion Gap 11 mmol/L (8-16); Aspartate Amino Transferase 36 U/L (17-59); Bilirubin,Total 0.4 mg/dL (0.2-1.3); Blood Urea Nitrogen 74 mg/dL (9-20); Calcium 8.5 mg/dL (8.4-10.2); Carbon Dioxide 29 mmol/L (22-30); Chloride 103 mmol/L (98-107); Estimated CRCL calculation 43 ml/min; Estimated Glomerular Filt Rate 45; Glucose 173 mg/dL (65-110); Magnesium 2.4 mg/dL (1.6-2.3); Phosphorus 2.8 mg/dL (2.5-4.5); Potassium 3.5 mmol/L (3.4-5.0); Sodium 143 mmol/L (137-145)
[2022-06-23 08:13] LABS: Glucose Point of Care 170 mg/dl (65-105)
[2022-06-23] MEDS: ALBUMIN HUMAN 25% 25 GM/100 ML 100 ML IVPB (09:16)
--- NOTE | 2022-06-23 09:36 | WPDINTPN ---
Progress Note: A&P Assessment and Plan (1) Acute respiratory failure with hypoxia: Code(s): J96.01 - Acute respiratory failure with hypoxia Status: Acute Assessment and Plan: Acute respiratory failure likely related to cardiac arrest -patient was intubated ED on 06/11/2022 -patient was extubated on 06/19 after weaning trials for couple of days. After few hours patient became tachypneic, with increased work of breathing and respiratory distress. Patient was given additional dose of Lasix and was placed on BiPAP. On BiPAP patient initially improved later deteriorated had to be intubated. Post extubation I did not hear any stridor on exam. Patient was wheezing and grunting but it was not inspiratory stridor. Later I was told by the nursing staff the patient was stridorous prior to re-intubation. I will treat him with a short course of Solu-Medrol 06/21 -completed a course of Solu-Medrol. Cuff leak present today on exam. Failed PSV trial within minutes due to high RSBI. Placed on pressure support of 12/5. Continue as tolerated 06/22 -failed PSV weaning trial. Needs pressure support of 12/5 for adequate RSBI. Will continue as tolerated 06/23 -failed 5/8 PSV trial due to high RSBI. Requires 12/8 pressure support for adequate RSBI. Continue as tolerated -otherwise he is on CMV mode of ventilation, at 30% FiO2, wean FiO2 to maintain O2 sats greater than 92% -sedated with propofol and Precedex -continue bronchodilators - Chest x-ray reviewed shows cardiomegaly with pulmonary edema -will again give albumin and Lasix today Continue Unasyn for a 10 day course. DC vancomycin 06/21 Low procalcitonin (2) Cardiac arrest with ventricular fibrillation: Code(s): I46.9 - Cardiac arrest, cause unspecified; I49.01 - Ventricular fibrillation Status: Acute Assessment and Plan: Patient presented with VFib arrest, ROSC within 15 minutes after EMS arrived and started CPR, (total down time was about 25 minutes.) -patient status post target temperature management, -elevated troponins likely related to cardiac arrest -post target temperature management he is following simple commands with all 4 extremities 06/16/2022: Patient had slow VFib/V-tach with no ICD discharge, requiring defibrillation x1, electrolytes were within normal limits patient was given amiodarone bolus and started on amiodarone infusion,. Cardiology was present during the episode. Cardiology going to evaluate AICD discharge thresholds Cardiology has switched amiodarone infusion to p.o. amiodarone now 06/14/2022 echocardiogram showed LV chamber dimension is severely enlarged, severely reduced LV systolic function with EF of 25-30%, mild aortic valve sclerosis, trace mitral valve regurg left atrial chamber dimension is mildly enlarged. (3) Acute kidney injury: Code(s): N17.9 - Acute kidney failure, unspecified Status: Acute Assessment and Plan: Patient with acute kidney injury likely related cardiac arrest, diuretics Patient presented with elevated creatinine but improved with IV fluids 06/20 Patient was given diuretics yesterday and creatinine has now increased to 2.2 Hold further diuretics Patient was given albumin to expand intravascular volume 06/21 -creatinine improved to 1.8 and has remained stable over last 24 hours although BUN is still elevated. 06/21 creatinine improved to 1.5 although BUN remains elevated -will give another dose of albumin followed by Lasix today -continue to monitor renal function, electrolytes and urine output (4) DM type 2 (diabetes mellitus, type 2): Qualifiers: Diabetes mellitus termite helper insulin use: without jail use Diabetes mellitus complication status: without complication Qualified Code(s): E11.9 - Type 2 diabetes mellitus without complications Code(s): E11.9 - Type 2 diabetes mellitus without complications Status: Acute Assessment and Plan: Patient was significantly h
[2022-06-23] MEDS: METOPROLOL SUCCINATE EXT REL 12.5 MG TABCR PO (09:38)
[2022-06-23] MEDS: MINERAL OIL/WHITE PETROLATUM OINTMENT 1 APPLIC EACH EYE ×2 (09:38→20:22)
[2022-06-23] MEDS: ENOXAPARIN 40 MG/0.4 ML SYRINGE SUB-Q (09:38)
[2022-06-23] MEDS: ATORVASTATIN 40 MG TABLET PO (09:38)
[2022-06-23] MEDS: PANTOPRAZOLE SODIUM IV 40 MG VIAL IV PUSH (09:38)
[2022-06-23] MEDS: POTASSIUM CHLORIDE 20 MEQ PACKET (FOR LIQUID) 40 MEQ FEED TUBE (09:39)
[2022-06-23] MEDS: AMIODARONE HCL 200 MG TABLET 400 MG PO (09:39)
[2022-06-23] MEDS: dexmedeTOMIDine 400 MCG/100 ML 400 MCG/100 ML BAG 19.15 MCG IV CONT ×3 (10:27→20:17)
[2022-06-23] MEDS: FUROSEMIDE INJ 40 MG/4 ML VIAL IV PUSH (10:32)
--- NOTE | 2022-06-23 10:38 | PM.PNCARD ---
Progress Note: A&P Assessment and Plan (1) Cardiac arrest due to underlying cardiac condition: Code(s): I46.2 - Cardiac arrest due to underlying cardiac condition Status: Acute (2) Nonischemic cardiomyopathy: Code(s): I42.8 - Other cardiomyopathies Status: Acute Plan 77-year-old man with: Severe nonischemic cardiomyopathy hospitalized following out of hospital cardiac arrest with appropriate treatment from his ICD. Patient will be started on very low-dose of Entresto today hopefully he will hemodynamically tolerate this. Obviously prognosis continues to be guarded given his presentation and tenuous hemodynamics/respiratory status Ramakrishna Tolentino MD [facility] Subjective Date/time seen: date of service:06/23/22 10:38 Interval history: Follow-up visit in this 77-year-old man with: Severe nonischemic cardiomyopathy with lethal ventricular arrhythmias admitted last week following out of hospital VT arrest which was terminated by his ICD. He was admitted to the ICU for evaluation and management following this. He remains intubated on ventilator support. He the propofol has been reduced this morning he is awake responsive and appears to be neurologically intact. Denies any chest pain occurrence following collapsing at home last week. Date of service 06/23/2022. Patient is still on the ventilator poor sedated at this time. Clinically essentially unchanged. No problems with significant hypotension discussed starting vaso dilator at modest doses to assist with hemodynamic performance and hopefully ultimately extubation. Exam Narrative: eyes open, moving head, tracking Const: General: comfortable, in distress mild and respiratory and patient obtunded; No confusion Orientation/consciousness: oriented to person, patient oriented x3, No confusion and patient obtunded Other: Awake alert on the ventilator responsive to commands recognizes me and shaking my hand HENMT: Mouth: Yes moist mucous membranes Other: endotracheal tube/ intubated mechanical ventilatory support Eyes: Sclera: sclerae normal Other: Pupils equal and round Neck: Neck: supple Thyroid: thyroid normal Other: unable to assess JVD given his obesity /normal carotid pulses Resp: Effort & Inspection: normal respiratory effort Auscultation: clear to auscultation bilaterally Other: few central rhonchi noted Cardio: Rate: regular rate Rhythm: regular rhythm and abnormal rhythm regularly irregular Heart sounds: no murmurs GI: Inspection: normal to inspection Auscultation: normal bowel sounds Other: No hepatosplenomegaly Skin: General skin exam: normal color and no rashes or lesions noted Neuro: General: oriented to person, patient oriented x3, No confusion and patient obtunded Other: alert and responsive today Extrem: Right lower extremity: no edema Left lower extremity: no edema Other: Mild diffuse edema Psych: Mental Status: mental status grossly normal Other: Intubated and sedated Objective Data Vital Signs Vital Signs: Vital Signs - 24 hr 06/22/22 10:49 06/22/22 11:51 06/22/22 13:30 Temperature Pulse Rate 63 71 Respiratory Rate 23 H Blood Pressure Pulse Oximetry 100 Oxygen Delivery Mechanical Ventilation Fraction of Inspired Oxygen 30 30 06/22/22 10:45 06/22/22 11:00 06/22/22 11:01 Temperature 36.9 C 36.9 C 36.9 C Pulse Rate 72 64 60 Respiratory Rate 22 H 16 20 Blood Pressure 102/83 Pulse Oximetry 95 99 Oxygen Delivery Fraction of Inspired Oxygen 06/22/22 11:16 06/22/22 11:30 06/22/22 11:32 Temperature 36.9 C 37.1 C 37.1 C Pulse Rate 61 63 60 Respiratory Rate 31 H 29 H 29 H Blood Pressure 110/69 Pulse Oximetry 97 97 97 Oxygen Delivery Fraction of Inspired Oxygen 06/22/22 11:45 06/22/22 12:00 06/22/22 12:02 Temperature 37.2 C 37.2 C 37.2 C Pulse Rate 60 68 60 Respiratory Rate 20 29 H 31 H Blood Pressure 93/56 L Pulse Oxi
[2022-06-23 12:09] LABS: Glucose Point of Care 195 mg/dl (65-105)
[2022-06-23] MEDS: SACUBITRIL/VALSARTAN 12-13 MG TABLET 1 TAB PO ×2 (12:19→20:22)
--- NOTE | 2022-06-23 13:34 | PM.IMPN ---
Progress Note: A&P Assessment and Plan (1) Cardiac arrest with ventricular fibrillation: Code(s): I46.9 - Cardiac arrest, cause unspecified; I49.01 - Ventricular fibrillation Status: Acute Assessment and Plan: Patient presented with VFib arrest, ROSC within 15 minutes after EMS arrived and started CPR, (total down time was about 25 minutes.) -patient status post target temperature management, -elevated troponins likely related to cardiac arrest -post target temperature management he is following simple commands with all 4 extremities 06/16/2022: Patient had slow VFib/V-tach with no ICD discharge, requiring defibrillation x1, electrolytes were within normal limits patient was given amiodarone bolus and started on amiodarone infusion,. Cardiology was present during the episode. Cardiology going to evaluate AICD discharge thresholds Continue Levophed for shock and blood pressure support 06/14/2022 echocardiogram showed LV chamber dimension is severely enlarged, severely reduced LV systolic function with EF of 25-30%, mild aortic valve sclerosis, trace mitral valve regurg left atrial chamber dimension is mildly enlarged. 06/23/2022 interval history: patient was extubated on . however developed increased respiratory distress and hence placed on BiPAP. he was in respiratory distress while on BiPAP. and patient was reintubated, currently on vent, again today patient was given trial of weaning however was not able to tolerate and continue on ventilator, patient with cardiac rest secondary to ventricular fibrillation, seen by lead enterprise architect recommending import clerk evaluation, patient with severe nonischemic cardiomyopathy, lead enterprise architect started patient on low dose of Entresto will monitor if patient can tolerate, and patient may benefit with repeat cardiac catheterization once clinically stable, patient is seen by steel post installer supervisor and appreciate will continue to monitor. (2) Acute respiratory failure with hypoxia: Code(s): J96.01 - Acute respiratory failure with hypoxia Status: Acute Assessment and Plan: Acute respiratory failure likely related to cardiac arrest -patient was intubated ED on 06/11/2022 -continue CMV mode of ventilation, peep of 8 in 30% FiO2, wean FiO2 to maintain O2 sats greater than 92% -off all sedation except Precedex -continue bronchodilators - Chest x-ray reviewed - 06/18 PSV weaning trial was performed. Patient quickly failed trial due to high RSBI with respiratory rate up to 40 and obvious respiratory distress and use of accessory muscles On vancomycin and Unasyn 9 extubated this a.m. but needed to be reintubated again this evening (3) Acute kidney injury: Code(s): N17.9 - Acute kidney failure, unspecified Status: Acute Assessment and Plan: Patient with acute kidney injury likely related cardiac arrest, diuretics creatinine increased a little to 1.4 06/17, possible secondary to V-tach/VFib, hypotension. Will continue to monitor -creatinine down to 1.2 -Urine output has been adequate -continue Lasix IV for volume overload -continue to monitor renal function, electrolytes and urine output (4) DM type 2 (diabetes mellitus, type 2): Qualifiers: Diabetes mellitus salvage determiner insulin use: without fpc use Diabetes mellitus complication status: without complication Qualified Code(s): E11.9 - Type 2 diabetes mellitus without complications Code(s): E11.9 - Type 2 diabetes mellitus without complications Status: Acute Assessment and Plan: Patient was significantly hyperglycemic on admission, was placed on insulin infusion which is currently off Continue Accu-Cheks and sliding scale insulin -continue Lantus (5) Nonischemic cardiomyopathy: Code(s): I42.8 - Other cardiomyopathies Status: Acute Assessment and Plan: nonischemic cardiomyopathy with EF of 20-25% on an echocardiogram done and 06/12/2021 -status
[2022-06-23 16:21] LABS: Glucose Point of Care 230 mg/dl (65-105)
[2022-06-23] MEDS: INSULIN ASPART (*BKC) 100 UNITS/ML SUB-Q ×2 (16:50→20:22)
[2022-06-23] MEDS: INSULIN GLARGINE (*BKC) 100 UNITS/ML 45 UNITS SUB-Q (20:21)
[2022-06-23 20:39] LABS: Glucose Point of Care 207 mg/dl (65-105)
[2022-06-23] MEDS: PROPOFOL IV EMULSION 100 ML 9.73 MG IV CONT (22:07)
[2022-06-24] VITALS (38 sets, daily range): BP systolic 86–110; BP diastolic 55–69; PULSE 57–86; RESP 16–25; TEMP 37–37.4; O2SAT 95–100
[2022-06-24 00:18] LABS: Glucose Point of Care 174 mg/dl (65-105)
[2022-06-24] MEDS: AMPICILLIN SULB 3 GM/NS 100 ML 3 GM/100 ML VIAL IVPB ×2 (00:19→06:09)
[2022-06-24] MEDS: dexmedeTOMIDine 400 MCG/100 ML 400 MCG/100 ML BAG 19.15 MCG IV CONT ×5 (01:45→22:55)
[2022-06-24] MEDS: ALBUTEROL SULFATE NEB 2.5 MG/3 ML INH INHALATION ×4 (02:28→19:50)
[2022-06-24] MEDS: IPRATROPIUM BR 0.02% INH SOLN 0.5 MG/2.5 ML VIAL INHALATION ×4 (02:28→19:51)
[2022-06-24 04:32] LABS: Hematocrit 29.6 % (42.0-52.0); Hemoglobin 9.3 g/dL (14.0-18.0); Mean Corpuscular HGB Conc 31.4 g/dl (32-36); Mean Corpuscular Hemoglobin 31.2 pg (26-34); Mean Corpuscular Volume 99.3 fl (80-100); Platelet Count Result 215 k/mm3 (150-375); Red Blood Count 2.98 M/mm3 (4.6-6.20); Red Cell Distribution Width 13.4 % (11.5-14.5); White Blood Count 8.9 K/mm3 (4.5-10.0)
[2022-06-24 05:04] LABS: Alanine Aminotransferase 32 U/L (6-50); Albumin Level 3.3 g/dL (3.5-5.1); Alkaline Phosphatase 77 U/L (38-126); Anion Gap 9 mmol/L (8-16); Aspartate Amino Transferase 28 U/L (17-59); Bilirubin,Total 0.4 mg/dL (0.2-1.3); Blood Urea Nitrogen 57 mg/dL (9-20); Calcium 8.5 mg/dL (8.4-10.2); Carbon Dioxide 31 mmol/L (22-30); Chloride 105 mmol/L (98-107); Estimated CRCL calculation 49 ml/min; Estimated Glomerular Filt Rate 53; Glucose 154 mg/dL (65-110); Magnesium 2.3 mg/dL (1.6-2.3); Phosphorus 2.8 mg/dL (2.5-4.5); Potassium 3.7 mmol/L (3.4-5.0); Sodium 145 mmol/L (137-145)
[2022-06-24 05:19] LABS: Alveolar/Arterial O2 Gradient 70.7 mmHg; Base Excess ABG 6.3 mEq/l (+/-2.0); Fractional Inspired Oxygen 30 %; HCO3 ABG 31.7 mEq/l (22.0-26.0); Oxygen Content ABG 13.9 %vol (16.0-22.0); Oxygen Saturation ABG 96.4 % (95.0-100.0); Oxyhemoglobin 95.2 % THb (90.0-100.0); PCO2 ABG 49.7 mmHg (35.0-45.0); PO2 ABG 84.8 mmHg (80.0-100.0); PO2 FiO2 Ratio Arterial Blood 2.83 %; Total Hemoglobin 10.3 g/dL (12.0-18.0); pH ABG 7.422 (7.350-7.450)
[2022-06-24 05:20] LABS: Arterial Blood Gas Vent Mode CMV; Arterial Blood Gas Ventilator rate 16 /MIN; Device VENTILATOR; Modified Allen's Test Pass; Site Drawn LEFT RADIAL
[2022-06-24 05:21] LABS: Arterial Blood Gas PEEP 8 cmH2O; Arterial Blood Gas Tidal Volume 450 ml
[2022-06-24] MEDS: CENTRAL LINE FLUSH 10 ML IV PUSH ×3 (06:09→20:20)
[2022-06-24] MEDS: PROPOFOL IV EMULSION 100 ML 9.73 MG IV CONT (06:09)
--- NOTE | 2022-06-24 09:07 | PM.PNCARD ---
Progress Note: A&P Assessment and Plan (1) Cardiac arrest with ventricular fibrillation: Code(s): I46.9 - Cardiac arrest, cause unspecified; I49.01 - Ventricular fibrillation Status: Acute (2) Presence of combination internal cardiac defibrillator (ICD) and pacemaker: Code(s): Z95.810 - Presence of automatic (implantable) cardiac defibrillator Status: Acute (3) Nonischemic cardiomyopathy: Code(s): I42.8 - Other cardiomyopathies Status: Acute Plan continue low doses of metoprolol and Entresto for now. Will continue to follow with you clinically. Expect he will likely need a tracheostomy relatively soon as weaning trial failed again today. Ramakrishna Tolentino MD [facility] Subjective Date/time seen: date of service:06/24/22 09:07 Interval history: Follow-up visit in this 77-year-old man with: Severe nonischemic cardiomyopathy with lethal ventricular arrhythmias admitted last week following out of hospital VT arrest which was terminated by his ICD. He was admitted to the ICU for evaluation and management following this. He remains intubated on ventilator support. He the propofol has been reduced this morning he is awake responsive and appears to be neurologically intact. Denies any chest pain occurrence following collapsing at home last week. Date of service 06/24/2022: Patient is condition essentially unchanged clinically. Remains intubated on ventilator support in the ICU. Low dose of the Entresto started yesterday. Seems to be tolerating that hemodynamically. Diuresing well in the past 24 hours. Unfortunately failed weaning trial again this morning. Spoke to patient and family will likely need a tracheostomy in the near future because of ongoing ventilator dependency Exam Narrative: patient is arousable alert and responsive on the ventilator Const: General: comfortable, in distress mild and respiratory and patient obtunded; No confusion Orientation/consciousness: oriented to person, patient oriented x3, No confusion and patient obtunded Other: Awake alert on the ventilator responsive to commands recognizes me and shaking my hand HENMT: Mouth: Yes moist mucous membranes Other: endotracheal tube/ intubated mechanical ventilatory support Eyes: Sclera: sclerae normal Other: Pupils equal and round Neck: Neck: supple Thyroid: thyroid normal Other: unable to assess JVD given his obesity /normal carotid pulses Resp: Effort & Inspection: normal respiratory effort Auscultation: clear to auscultation bilaterally Other: few central rhonchi noted Cardio: Rate: regular rate Rhythm: regular rhythm and abnormal rhythm regularly irregular Heart sounds: no murmurs GI: Inspection: normal to inspection Auscultation: normal bowel sounds Other: No hepatosplenomegaly Skin: General skin exam: normal color and no rashes or lesions noted Neuro: General: oriented to person, patient oriented x3, No confusion and patient obtunded Other: alert and responsive today Extrem: Right lower extremity: no edema Left lower extremity: no edema Other: Mild diffuse edema Psych: Mental Status: mental status grossly normal Other: Intubated and sedated Objective Data Vital Signs Vital Signs: Vital Signs - 24 hr 06/23/22 09:10 06/23/22 09:38 06/23/22 09:39 Temperature Pulse Rate 62 73 72 Respiratory Rate Blood Pressure Pulse Oximetry 97 Oxygen Delivery Mechanical Ventilation Fraction of Inspired Oxygen 30 06/23/22 09:50 06/23/22 10:00 06/23/22 10:27 Temperature 36.8 C Pulse Rate 72 69 67 Respiratory Rate 25 H 18 23 H Blood Pressure 104/62 Pulse Oximetry 97 Oxygen Delivery Fraction of Inspired Oxygen 06/23/22 10:52 06/23/22 11:18 06/23/22 11:20 Temperature Pulse Rate 65 66 66 Respiratory Rate 20 20 Blood Pressure Pulse Oximetry 97 Oxygen Delivery Mechanical Ventilation Fraction of Inspired Oxygen 30 1
[2022-06-24] MEDS: AMIODARONE HCL 200 MG TABLET 400 MG PO (09:20)
[2022-06-24] MEDS: ENOXAPARIN 40 MG/0.4 ML SYRINGE SUB-Q (09:21)
[2022-06-24] MEDS: POTASSIUM CHLORIDE 20 MEQ PACKET (FOR LIQUID) 40 MEQ FEED TUBE (09:21)
[2022-06-24] MEDS: METOPROLOL SUCCINATE EXT REL 12.5 MG TABCR PO (09:21)
[2022-06-24] MEDS: ATORVASTATIN 40 MG TABLET PO (09:21)
[2022-06-24] MEDS: FUROSEMIDE INJ 40 MG/4 ML VIAL IV PUSH ×2 (09:22→17:47)
[2022-06-24] MEDS: SACUBITRIL/VALSARTAN 12-13 MG TABLET 1 TAB PO ×2 (09:22→20:20)
[2022-06-24] MEDS: PANTOPRAZOLE SODIUM IV 40 MG VIAL IV PUSH (09:22)
[2022-06-24] MEDS: ALBUMIN HUMAN 25% 25 GM/100 ML 100 ML IVPB ×2 (09:26→17:11)
--- NOTE | 2022-06-24 11:25 | PCFNICU ---
ICU Rounding Note: Pt current nutrition is Vital 1.2 @ 45 ml/h. Nutrition recommendation: Continue current tube feeding regimen Vital 1.2 @ 45 ml/h with flushes 30 ml q 4 h. Last recorded weight is 109.6 kg. 06/11/22: 113 kg Weight loss -7.5 lb/2 weeks. 3%/2 weeks Bowel Motility: +1 BM 06/24/22 Labs Reviewed: Hgb 9.3, Hct 29.6, Alb 3.3, BUN 57 Meds Noted: Versed, Propofol. Lasix Skin: Blister Additional Notes: Propofol providing 257 kcals/day. Agree with current orders. Following daily in ICU rounds. follow up T/F monitor feeding tolerance, per policy gastric residual, wt and labs.
--- NOTE | 2022-06-24 11:54 | WPDINTPN ---
Progress Note: A&P Assessment and Plan (1) Acute respiratory failure with hypoxia: Code(s): J96.01 - Acute respiratory failure with hypoxia Status: Acute Assessment and Plan: Acute respiratory failure likely related to cardiac arrest -patient was intubated ED on 06/11/2022 -patient was extubated on 06/19 after weaning trials for couple of days. After few hours patient became tachypneic, with increased work of breathing and respiratory distress. Patient was given additional dose of Lasix and was placed on BiPAP. On BiPAP patient initially improved later deteriorated had to be intubated. Post extubation I did not hear any stridor on exam. Patient was wheezing and grunting but it was not inspiratory stridor. Later I was told by the nursing staff the patient was stridorous prior to re-intubation. I will treat him with a short course of Solu-Medrol 06/21 -completed a course of Solu-Medrol. Cuff leak present today on exam. Failed PSV trial within minutes due to high RSBI. Placed on pressure support of 12/5. Continue as tolerated 06/22 -failed PSV weaning trial. Needs pressure support of 12/5 for adequate RSBI. Will continue as tolerated 06/23 -failed 5/8 PSV trial due to high RSBI. Requires 12/8 pressure support for adequate RSBI. Continue as tolerated 06/24 -failed weaning trial within minutes with high RSBI and respiratory distress. I increased pressure support up to 15 that did not help and patient's respiratory rate remained of 30 with visible use of accessory muscles and patient was in respiratory distress. Switched back to CMV mode. Patient's family was at bedside. -continue CMV mode of ventilation, at 30% FiO2, wean FiO2 to maintain O2 sats greater than 92% -sedated with propofol and Precedex -continue bronchodilators - Chest x-ray reviewed shows cardiomegaly with pulmonary edema -will continue albumin and Lasix today Continue Unasyn for a 10 day course. DC vancomycin 06/21 Patient has been failing weaning trials and is close to date 12 on the ventilator. It is likely the patient will need tracheostomy and PEG tube if family desires. I will discuss with patient's today (2) Cardiac arrest with ventricular fibrillation: Code(s): I46.9 - Cardiac arrest, cause unspecified; I49.01 - Ventricular fibrillation Status: Acute Assessment and Plan: Patient presented with VFib arrest, ROSC within 15 minutes after EMS arrived and started CPR, (total down time was about 25 minutes.) -patient status post target temperature management, -elevated troponins likely related to cardiac arrest -post target temperature management he is following simple commands with all 4 extremities 06/16/2022: Patient had slow VFib/V-tach with no ICD discharge, requiring defibrillation x1, electrolytes were within normal limits patient was given amiodarone bolus and started on amiodarone infusion,. Cardiology was present during the episode. Cardiology going to evaluate AICD discharge thresholds Cardiology has switched amiodarone infusion to p.o. amiodarone now 06/14/2022 echocardiogram showed LV chamber dimension is severely enlarged, severely reduced LV systolic function with EF of 25-30%, mild aortic valve sclerosis, trace mitral valve regurg left atrial chamber dimension is mildly enlarged. (3) Acute kidney injury: Code(s): N17.9 - Acute kidney failure, unspecified Status: Acute Assessment and Plan: Patient with acute kidney injury likely related cardiac arrest, diuretics Patient presented with elevated creatinine but improved with IV fluids 06/20 Patient was given diuretics yesterday and creatinine has now increased to 2.2 Hold further diuretics Patient was given albumin to expand intravascular volume 06/21 -creatinine improved to 1.8 and has remained stable over last 24 hours although BUN is still elevated. 06/21 creatinine improved to 1.5 although BUN remains elevated 06/24 -creatinine improved to 1.3 today
[2022-06-24 12:02] LABS: Glucose Point of Care 169 mg/dl (65-105)
--- NOTE | 2022-06-24 12:06 | WPDNEUROPN ---
Subjective Date/time seen: 06/24/22 12:06 Interval history: 77 years old has been admitted to intensive care subsequent to a cardiopulmonary arrest in the field and has been in the Intensive Care ever since the admission. Patient is being followed by the accounting administrator as well and most recent has automatic defibrillator and pacemaker with the underlying diagnosis of nonischemic cardiomyopathy he is being continued on metoprolol and and entresto, he has had thus course of Solu-Medrol and 14 he failed weaning trial within minutes he will be continued on CMV mode of ventilation, sedation with propofol and Precedex, along with the bronchodilators most recent chest x-ray with pulmonary edema along with the cardiomegaly and is being maintained on antibiotic Unasyn for 10 days course considering that he has been on ventilator for 12 days he will end up having the tracheostomy Review of Systems Review of Systems: All systems reviewed & are unremarkable except as noted in HPI and below Exam Narrative: intubated,, sedated, follows instructions, looks to the right and to the left, reflexes are sluggish plantar responses are neutral on the ventilator as discussed above treatment will be continued as such Objective Data Vital Signs Vital Signs: Vital Signs - 24 hr 06/23/22 14:01 06/23/22 14:04 06/23/22 14:13 Temperature Pulse Rate 61 65 61 Respiratory Rate 19 20 Blood Pressure Pulse Oximetry 99 Oxygen Delivery Mechanical Ventilation Fraction of Inspired Oxygen 30 06/23/22 14:00 06/23/22 14:27 06/23/22 14:00 Temperature 37.1 C Pulse Rate 61 60 61 Respiratory Rate 24 H Blood Pressure 99/62 L Pulse Oximetry 95 98 Oxygen Delivery Mechanical Ventilation Fraction of Inspired Oxygen 30 06/23/22 16:00 06/23/22 16:44 06/23/22 16:00 Temperature 37.1 C Pulse Rate 61 60 Respiratory Rate 22 H Blood Pressure 96/64 L Pulse Oximetry 97 98 Oxygen Delivery Mechanical Ventilation Mechanical Ventilation Fraction of Inspired Oxygen 30 30 06/23/22 16:00 06/23/22 17:57 06/23/22 16:00 Temperature 37.2 C Pulse Rate 60 62 Respiratory Rate 20 Blood Pressure 101/61 Pulse Oximetry 99 Oxygen Delivery Fraction of Inspired Oxygen 30 06/23/22 18:00 06/23/22 20:00 06/23/22 20:38 Temperature 37.0 C Pulse Rate 60 60 61 Respiratory Rate 20 Blood Pressure 99/87 L Pulse Oximetry 99 100 Oxygen Delivery Mechanical Ventilation Fraction of Inspired Oxygen 30 06/23/22 20:38 06/23/22 20:38 06/23/22 20:54 Temperature Pulse Rate 60 60 60 Respiratory Rate 20 20 21 H Blood Pressure Pulse Oximetry 100 Oxygen Delivery Mechanical Ventilation Fraction of Inspired Oxygen 06/23/22 20:00 06/23/22 20:00 06/23/22 23:12 Temperature Pulse Rate 60 Respiratory Rate Blood Pressure Pulse Oximetry 98 Oxygen Delivery Mechanical Ventilation Mechanical Ventilation Fraction of Inspired Oxygen 30 30 30 06/23/22 23:12 06/23/22 20:00 06/23/22 22:00 Temperature Pulse Rate 60 62 60 Respiratory Rate 24 H Blood Pressure Pulse Oximetry 98 Oxygen Delivery Mechanical Ventilation Fraction of Inspired Oxygen 30 06/23/22 22:02 06/23/22 23:00 06/23/22 23:01 Temperature 37.1 C 37.3 C 37.3 C Pulse Rate 60 60 66 Respiratory Rate 25 H 23 H 25 H Blood Pressure 90/69 L 105/70 Pulse Oximetry 99 98 96 Oxygen Delivery Fraction of Inspired Oxygen 06/23/22 23:15 06/23/22 23:30 06/23/22 23:31 Temperature 37.3 C 37.3 C 37.3 C Pulse Rate 60 60 60 Respiratory Rate 25 H 25 H 23 H Blood Pressure 107/69 Pulse Oximetry 98 98 99 Oxygen Delivery Fraction of Inspired Oxygen 06/23/22 23:49 06/24/22 00:00 06/24/22 00:00 Temperature 37.3 C Pulse Rate 64 Respiratory Rate 20 Blood Pressure Pulse Oximetry 99 Oxygen Delivery Mechanical Ventilation Fraction of Inspired Oxygen 30 30 06/24/22 00:00 06/24/22 00:01 06/24/22
[2022-06-24 13:17] LABS: Glucose Point of Care 166 mg/dl (65-105)
[2022-06-24] MEDS: PROPOFOL IV EMULSION 100 ML 12.97 MG IV CONT ×2 (14:08→20:29)
[2022-06-24 17:18] LABS: Glucose Point of Care 185 mg/dl (65-105)
[2022-06-24] MEDS: INSULIN GLARGINE (*BKC) 100 UNITS/ML 45 UNITS SUB-Q (20:20)
[2022-06-24] MEDS: MINERAL OIL/WHITE PETROLATUM OINTMENT 1 APPLIC EACH EYE (20:20)
[2022-06-24 20:23] LABS: Glucose Point of Care 172 mg/dl (65-105)
[2022-06-25] VITALS (41 sets, daily range): BP systolic 85–106; BP diastolic 53–70; PULSE 60–99; RESP 14–24; TEMP 36.8–37.7; O2SAT 93–100
[2022-06-25 00:23] LABS: Glucose Point of Care 186 mg/dl (65-105)
[2022-06-25] MEDS: IPRATROPIUM BR 0.02% INH SOLN 0.5 MG/2.5 ML VIAL INHALATION ×4 (01:45→21:08)
[2022-06-25] MEDS: ALBUTEROL SULFATE NEB 2.5 MG/3 ML INH INHALATION ×4 (01:45→21:07)
[2022-06-25] MEDS: dexmedeTOMIDine 400 MCG/100 ML 400 MCG/100 ML BAG 19.15 MCG IV CONT ×4 (04:08→19:59)
[2022-06-25] MEDS: PROPOFOL IV EMULSION 100 ML 12.97 MG IV CONT ×3 (04:09→23:09)
[2022-06-25 04:37] LABS: Hematocrit 30.2 % (42.0-52.0); Hemoglobin 9.4 g/dL (14.0-18.0); Mean Corpuscular HGB Conc 31.1 g/dl (32-36); Mean Corpuscular Hemoglobin 30.9 pg (26-34); Mean Corpuscular Volume 99.3 fl (80-100); Mean Platelet Volume 9.5 fl (7.4-10.4); Platelet Count Result 236 k/mm3 (150-375); Red Blood Count 3.04 M/mm3 (4.6-6.20); Red Cell Distribution Width 13.4 % (11.5-14.5); White Blood Count 9.8 K/mm3 (4.5-10.0)
[2022-06-25 04:50] LABS: Alanine Aminotransferase 30 U/L (6-50); Albumin Level 3.6 g/dL (3.5-5.1); Alkaline Phosphatase 88 U/L (38-126); Anion Gap 8 mmol/L (8-16); Aspartate Amino Transferase 27 U/L (17-59); Bilirubin,Total 0.5 mg/dL (0.2-1.3); Blood Urea Nitrogen 55 mg/dL (9-20); Calcium 8.7 mg/dL (8.4-10.2); Carbon Dioxide 31 mmol/L (22-30); Chloride 106 mmol/L (98-107); Estimated CRCL calculation 53 ml/min; Estimated Glomerular Filt Rate 59; Glucose 182 mg/dL (65-110); Magnesium 2.3 mg/dL (1.6-2.3); Potassium 3.9 mmol/L (3.4-5.0); Sodium 145 mmol/L (137-145)
[2022-06-25 05:31] LABS: Alveolar/Arterial O2 Gradient 81.4 mmHg; Carboxyhemoglobin 0.3 % THb (0-2.0); Fractional Inspired Oxygen 30 %; HCO3 ABG 31.8 mEq/l (22.0-26.0); Methemoglobin ABG 0.1 %THb (0-1.5); Oxygen Content ABG 14.3 %vol (16.0-22.0); Oxygen Saturation ABG 96.1 % (95.0-100.0); Oxyhemoglobin 94.8 % THb (90.0-100.0); PO2 ABG 78.5 mmHg (80.0-100.0); PO2 FiO2 Ratio Arterial Blood 2.62 %; Reduced Hemoglobin 4.8 %THb (0-5.0); Total Hemoglobin 10.7 g/dL (12.0-18.0); pH ABG 7.457 (7.350-7.450)
[2022-06-25 05:33] LABS: Device VENTILATOR; Modified Allen's Test Pass; Site Drawn RIGHT RADIAL
[2022-06-25 05:34] LABS: Arterial Blood Gas PEEP 5 cmH2O; Arterial Blood Gas Tidal Volume 450 ml; Arterial Blood Gas Vent Mode CMV; Arterial Blood Gas Ventilator rate 16 /MIN
[2022-06-25] MEDS: CENTRAL LINE FLUSH 10 ML IV PUSH ×3 (06:37→21:01)
[2022-06-25] MEDS: METOPROLOL SUCCINATE EXT REL 12.5 MG TABCR PO (08:22)
[2022-06-25] MEDS: MINERAL OIL/WHITE PETROLATUM OINTMENT 1 APPLIC EACH EYE ×2 (08:22→21:01)
[2022-06-25] MEDS: AMIODARONE HCL 200 MG TABLET 400 MG PO (08:22)
[2022-06-25] MEDS: ATORVASTATIN 40 MG TABLET PO (08:22)
[2022-06-25] MEDS: ENOXAPARIN 40 MG/0.4 ML SYRINGE SUB-Q (08:22)
[2022-06-25] MEDS: PANTOPRAZOLE SODIUM IV 40 MG VIAL IV PUSH (08:23)
[2022-06-25] MEDS: SACUBITRIL/VALSARTAN 12-13 MG TABLET 1 TAB PO ×2 (08:23→21:02)
--- NOTE | 2022-06-25 10:03 | PM.PNCARD ---
Progress Note: A&P Assessment and Plan (1) Cardiac arrest with ventricular fibrillation: Code(s): I46.9 - Cardiac arrest, cause unspecified; I49.01 - Ventricular fibrillation Status: Acute (2) Presence of combination internal cardiac defibrillator (ICD) and pacemaker: Code(s): Z95.810 - Presence of automatic (implantable) cardiac defibrillator Status: Acute (3) Nonischemic cardiomyopathy: Code(s): I42.8 - Other cardiomyopathies Status: Acute Plan continue low doses of metoprolol and Entresto for now. Will continue to follow with you clinically. Likely will need a trach Continue with Amiodarone. Time Spent With Patient Time with patient: 15 - 25 minutes Subjective Date/time seen: 06/25/22 10:03 Interval history: Reason for visit: Cardiac arrest ? Follow-up visit in this 77-year-old man with: ? Severe nonischemic cardiomyopathy with lethal ventricular arrhythmias admitted following out of hospital VT arrest which was terminated by his ICD.? He was admitted to the ICU for evaluation and management following this.? He remains intubated on ventilator support.? ?? Date of service 06/24/2022:? ? Patient is condition essentially unchanged clinically.? Remains intubated on ventilator support in the ICU.? Low dose of the Entresto started yesterday.? Seems to be tolerating that hemodynamically.? Diuresing well in the past 24 hours.? Unfortunately failed weaning trial again this morning.? Spoke to patient and family will likely need a tracheostomy in the near future because of ongoing ventilator dependency 06/25/2022: No acute events overnight. Condition remains unchanged. Remains intubated. Hemodynamics tolerating Entresto and beta marisela. Review of Systems Review of Systems: ROS unobtainable: Yes unobtainable due to endotracheal tube Exam Const: General: comfortable and no acute distress HENMT: Mouth: Yes moist mucous membranes Other: endotracheal tube/ intubated mechanical ventilatory support Eyes: Sclera: sclerae normal Neck: Neck: supple Other: unable to assess JVD given his obesity Resp: Auscultation: clear to auscultation bilaterally Other: On mechanical ventilation Cardio: Rate: regular rate Rhythm: regular rhythm Skin: General skin exam: normal color Neuro: Other: Sedated Extrem: Right lower extremity: no edema Left lower extremity: no edema Psych: Mental Status: mental status grossly normal Other: Intubated and sedated Objective Data Vital Signs Vital Signs: Vital Signs - 24 hr 06/24/22 10:30 06/24/22 11:28 06/24/22 12:00 Temperature Pulse Rate 86 60 60 Respiratory Rate 21 H 21 H Blood Pressure Pulse Oximetry 97 Oxygen Delivery Mechanical Ventilation Fraction of Inspired Oxygen 30 06/24/22 12:00 06/24/22 12:00 06/24/22 12:00 Temperature Pulse Rate 60 60 Respiratory Rate 18 Blood Pressure Pulse Oximetry 97 Oxygen Delivery Mechanical Ventilation Fraction of Inspired Oxygen 30 30 06/24/22 12:00 06/24/22 12:00 06/24/22 14:08 Temperature 37.4 C Pulse Rate 60 60 60 Respiratory Rate 18 20 18 Blood Pressure 93/59 L Pulse Oximetry 97 Oxygen Delivery Fraction of Inspired Oxygen 06/24/22 14:08 06/24/22 13:55 06/24/22 13:55 Temperature Pulse Rate 60 61 61 Respiratory Rate 18 17 Blood Pressure Pulse Oximetry 96 Oxygen Delivery Mechanical Ventilation Fraction of Inspired Oxygen 30 06/24/22 14:05 06/24/22 14:00 06/24/22 14:00 Temperature 37.4 C Pulse Rate 57 L 60 60 Respiratory Rate 18 18 Blood Pressure 86/55 L Pulse Oximetry 95 Oxygen Delivery Fraction of Inspired Oxygen 06/24/22 16:00 06/24/22 16:00 06/24/22 16:00 Temperature Pulse Rate 60 60 Respiratory Rate 18 Blood Pressure Pulse Oximetry 97 Oxygen Delivery Mechanical Ventilation Fraction of Inspired Oxygen 30 30 06/24/22 16:00 06/24/22 17:14 06/24/22 17:47 Te
--- NOTE | 2022-06-25 11:35 | PCNFU ---
Nutrition Follow-Up Complete: decreased nutrient needs related to NPO status as evidence by diet order goal: meet estimated energy needs through TF Patient is progressing towards goal. We will continue current goal. Pt current nutrition is Vital AF 1.2 at 45 ml/hr. Nutrition recommendation: goal rate at 65 ml/hr Last recorded weight is 110.1 kg, down from 113 kg on admit. Bowel Motility: +Bm reported 06/24 Labs Reviewed:Glu 182, BUN 55 Meds Noted:Precedex, Lipitor, Lantus, Protonix Skin: WNL Additional Notes: Patient on breathing trial at this time weaning Propofol and Precedex. Possible Trach/PEG at end of week. Currently tube feedings of Nepro at 45 ml/hr recommend goal rate at 65 ml/hr providing 1716 kcals/107 gms protein/1160 ml water. Free water flush 30 ml q 4 hours. Agree with diet orders. Monitoring:monitor feeding tolerance, per policy gastric residual, wt and labs every Friday and Friday.
--- NOTE | 2022-06-25 11:51 | WPDINTPN ---
Progress Note: A&P Assessment and Plan (1) Acute respiratory failure with hypoxia: Code(s): J96.01 - Acute respiratory failure with hypoxia Status: Acute Assessment and Plan: Acute respiratory failure likely related to cardiac arrest -patient was intubated ED on 06/11/2022 -patient was extubated on 06/19 after weaning trials for couple of days. After few hours patient became tachypneic, with increased work of breathing and respiratory distress. Patient was given additional dose of Lasix and was placed on BiPAP. On BiPAP patient initially improved later deteriorated and was reintubated on 06/19 Post extubation I did not hear any stridor on exam. Patient was wheezing and grunting but it was not inspiratory stridor. Later I was told by the nursing staff the patient was stridorous prior to re-intubation. Status post Solu-Medrol 06/21 -completed a course of Solu-Medrol. Cuff leak present today on exam. Failed PSV trial within minutes due to high RSBI. Placed on pressure support of 12/5. Continue as tolerated 06/22 -failed PSV weaning trial. Needs pressure support of 12/5 for adequate RSBI. Will continue as tolerated 06/23 -failed 5/8 PSV trial due to high RSBI. Requires 12/8 pressure support for adequate RSBI. Continue as tolerated 06/24 -failed weaning trial within minutes with high RSBI and respiratory distress. I increased pressure support up to 15 that did not help and patient's respiratory rate remained of 30 with visible use of accessory muscles and patient was in respiratory distress. 06/25: Failed pressure support, was started on ASV mode of ventilation -have asked the bedside RN and DC the propofol, and the. Patient's family was at bedside. -continue CMV mode of ventilation, at 30% FiO2, wean FiO2 to maintain O2 sats greater than 92% -sedated with propofol and Precedex infusion. -placed patient on ASV mode of ventilation. Have asked the bedside RN to hold the sedation, will try SBT today -will repeat Bumex IV today today -continue bronchodilators (Atrovent and ipratropium) S/P Unasyn for a 10 day course. DC vancomycin 06/21 Patient has been failing weaning trials and is close to date 12 on the ventilator. It is likely the patient will need tracheostomy and PEG tube if family desires. I discussed with patient's , she is agreeable to tracheostomy and PEG tube placement (2) Cardiac arrest with ventricular fibrillation: Code(s): I46.9 - Cardiac arrest, cause unspecified; I49.01 - Ventricular fibrillation Status: Acute Assessment and Plan: Patient presented with VFib arrest, ROSC within 15 minutes after EMS arrived and started CPR, (total down time was about 25 minutes.) -patient status post target temperature management, -elevated troponins likely related to cardiac arrest -post target temperature management he is following simple commands with all 4 extremities 06/16/2022: Patient had slow VFib/V-tach with no ICD discharge, requiring defibrillation x1, electrolytes were within normal limits patient was given amiodarone bolus and started on amiodarone infusion,. Cardiology was present during the episode. Cardiology going to evaluate AICD discharge thresholds Cardiology has switched amiodarone infusion to p.o. amiodarone now 06/14/2022 echocardiogram showed LV chamber dimension is severely enlarged, severely reduced LV systolic function with EF of 25-30%, mild aortic valve sclerosis, trace mitral valve regurg left atrial chamber dimension is mildly enlarged. (3) Acute kidney injury: Code(s): N17.9 - Acute kidney failure, unspecified Status: Acute Assessment and Plan: Patient with acute kidney injury likely related cardiac arrest, diuretics Patient presented with elevated creatinine but improved with IV fluids 06/20 Patient was given diuretics yesterday and creatinine has now increased to 2.2 Hold further diuretics Patient was given albumin to expand intravascular volume
[2022-06-25] MEDS: MIDAZOLAM HCL (*CRX) 2 MG/2 ML VIAL (13:17)
[2022-06-25] MEDS: BUMETANIDE INJ 1 MG/4 ML VIAL IV PUSH (13:25)
[2022-06-25 13:33] LABS: Glucose Point of Care 198 mg/dl (65-105)
--- NOTE | 2022-06-25 17:07 | PM.IMPN ---
Progress Note: A&P Assessment and Plan (1) Cardiac arrest with ventricular fibrillation: Code(s): I46.9 - Cardiac arrest, cause unspecified; I49.01 - Ventricular fibrillation Status: Acute Assessment and Plan: Patient presented with VFib arrest, ROSC within 15 minutes after EMS arrived and started CPR, (total down time was about 25 minutes.) -patient status post target temperature management, -elevated troponins likely related to cardiac arrest -post target temperature management he is following simple commands with all 4 extremities 06/16/2022: Patient had slow VFib/V-tach with no ICD discharge, requiring defibrillation x1, electrolytes were within normal limits patient was given amiodarone bolus and started on amiodarone infusion,. Cardiology was present during the episode. Cardiology going to evaluate AICD discharge thresholds Continue Levophed for shock and blood pressure support 06/14/2022 echocardiogram showed LV chamber dimension is severely enlarged, severely reduced LV systolic function with EF of 25-30%, mild aortic valve sclerosis, trace mitral valve regurg left atrial chamber dimension is mildly enlarged. 06/25/2022 interval history: patient was extubated on however developed increased respiratory distress and hence placed on BiPAP. he was in respiratory distress while on BiPAP. and patient was reintubated, currently on vent, again on 06/23 patient was given trial of weaning however was not able to tolerate and continue on ventilator, today patient is more awake, his daughter is present in the room, and may have and weaning trial, patient with cardiac rest secondary to ventricular fibrillation, seen by grease renderer recommending hurl shaker evaluation, patient with severe nonischemic cardiomyopathy, grease renderer started patient on low dose of Entresto will monitor if patient can tolerate, and patient may benefit with repeat cardiac catheterization once clinically stable, patient is seen by gypsum calciner and appreciate will continue to monitor. (2) Acute respiratory failure with hypoxia: Code(s): J96.01 - Acute respiratory failure with hypoxia Status: Acute Assessment and Plan: Acute respiratory failure likely related to cardiac arrest -patient was intubated ED on 06/11/2022 -continue CMV mode of ventilation, peep of 8 in 30% FiO2, wean FiO2 to maintain O2 sats greater than 92% -off all sedation except Precedex -continue bronchodilators - Chest x-ray reviewed - 06/18 PSV weaning trial was performed. Patient quickly failed trial due to high RSBI with respiratory rate up to 40 and obvious respiratory distress and use of accessory muscles On vancomycin and Unasyn 11 9 extubated this a.m. but needed to be reintubated again this evening (3) Acute kidney injury: Code(s): N17.9 - Acute kidney failure, unspecified Status: Acute Assessment and Plan: Patient with acute kidney injury likely related cardiac arrest, diuretics creatinine increased a little to 1.4 06/17, possible secondary to V-tach/VFib, hypotension. Will continue to monitor -creatinine down to 1.2 -Urine output has been adequate -continue Lasix IV for volume overload -continue to monitor renal function, electrolytes and urine output (4) DM type 2 (diabetes mellitus, type 2): Qualifiers: Diabetes mellitus intermediate teacher insulin use: without skilled nursing use Diabetes mellitus complication status: without complication Qualified Code(s): E11.9 - Type 2 diabetes mellitus without complications Code(s): E11.9 - Type 2 diabetes mellitus without complications Status: Acute Assessment and Plan: Patient was significantly hyperglycemic on admission, was placed on insulin infusion which is currently off Continue Accu-Cheks and sliding scale insulin -continue Lantus (5) Nonischemic cardiomyopathy: Code(s): I42.8 - Other cardiomyopathies Status: Acute Assessment and Pl
[2022-06-25 17:29] LABS: Glucose Point of Care 222 mg/dl (65-105)
[2022-06-25] MEDS: INSULIN ASPART (*BKC) 100 UNITS/ML SUB-Q (17:33)
[2022-06-25 20:59] LABS: Glucose Point of Care 176 mg/dl (65-105)
[2022-06-25] MEDS: INSULIN GLARGINE (*BKC) 100 UNITS/ML 45 UNITS SUB-Q (21:01)
[2022-06-26] VITALS (51 sets, daily range): BP systolic 84–117; BP diastolic 57–73; PULSE 60–83; RESP 16–32; TEMP 37.1–37.9; O2SAT 93–100
[2022-06-26 00:25] LABS: Glucose Point of Care 169 mg/dl (65-105)
[2022-06-26] MEDS: ALBUTEROL SULFATE NEB 2.5 MG/3 ML INH INHALATION ×4 (01:57→20:25)
[2022-06-26] MEDS: IPRATROPIUM BR 0.02% INH SOLN 0.5 MG/2.5 ML VIAL INHALATION ×4 (01:57→20:25)
[2022-06-26 03:56] LABS: Hematocrit 31.9 % (42.0-52.0); Hemoglobin 9.9 g/dL (14.0-18.0); Mean Corpuscular Hemoglobin 30.9 pg (26-34); Mean Corpuscular Volume 99.7 fl (80-100); Mean Platelet Volume 9.9 fl (7.4-10.4); Platelet Count Result 280 k/mm3 (150-375); Red Cell Distribution Width 13.2 % (11.5-14.5); White Blood Count 12.2 K/mm3 (4.5-10.0)
[2022-06-26 04:08] LABS: Alanine Aminotransferase 34 U/L (6-50); Albumin Level 3.6 g/dL (3.5-5.1); Alkaline Phosphatase 109 U/L (38-126); Anion Gap 8 mmol/L (8-16); Aspartate Amino Transferase 41 U/L (17-59); Bilirubin,Total 0.5 mg/dL (0.2-1.3); Blood Urea Nitrogen 55 mg/dL (9-20); Calcium 8.7 mg/dL (8.4-10.2); Carbon Dioxide 31 mmol/L (22-30); Chloride 105 mmol/L (98-107); Estimated CRCL calculation 50 ml/min; Estimated Glomerular Filt Rate 53; Glucose 169 mg/dL (65-110); Magnesium 2.2 mg/dL (1.6-2.3); Potassium 4.1 mmol/L (3.4-5.0); Sodium 144 mmol/L (137-145); Triglycerides 132 mg/dL (<150)
[2022-06-26] MEDS: CENTRAL LINE FLUSH 10 ML IV PUSH ×3 (04:15→22:15)
[2022-06-26] MEDS: PROPOFOL IV EMULSION 100 ML 19.46 MG IV CONT (04:27)
[2022-06-26] MEDS: dexmedeTOMIDine 400 MCG/100 ML 400 MCG/100 ML BAG 13.68 MCG IV CONT ×2 (04:28→11:50)
[2022-06-26 04:53] LABS: Alveolar/Arterial O2 Gradient 60.6 mmHg; Base Excess ABG 4.8 mEq/l (+/-2.0); Carboxyhemoglobin 0.3 % THb (0-2.0); Fractional Inspired Oxygen 30 %; HCO3 ABG 31.4 mEq/l (22.0-26.0); Methemoglobin ABG 0.2 %THb (0-1.5); Oxygen Saturation ABG 96.2 % (95.0-100.0); Oxyhemoglobin 94.7 % THb (90.0-100.0); PCO2 ABG 56.3 mmHg (35.0-45.0); PO2 ABG 87.2 mmHg (80.0-100.0); PO2 FiO2 Ratio Arterial Blood 2.91 %; Reduced Hemoglobin 4.8 %THb (0-5.0); Total Hemoglobin 11.2 g/dL (12.0-18.0); pH ABG 7.364 (7.350-7.450)
[2022-06-26 05:00] LABS: Device VENTILATOR; Modified Allen's Test Unable to perform; Site Drawn RIGHT RADIAL
[2022-06-26 05:01] LABS: Arterial Blood Gas PEEP 5 cmH2O; Arterial Blood Gas Tidal Volume 450 ml; Arterial Blood Gas Vent Mode CMV; Arterial Blood Gas Ventilator rate 16 /MIN
[2022-06-26 08:04] LABS: Glucose Point of Care 216 mg/dl (65-105)
[2022-06-26] MEDS: ENOXAPARIN 40 MG/0.4 ML SYRINGE SUB-Q (09:33)
[2022-06-26] MEDS: PANTOPRAZOLE SODIUM IV 40 MG VIAL IV PUSH (09:33)
[2022-06-26] MEDS: ATORVASTATIN 40 MG TABLET PO (09:38)
[2022-06-26] MEDS: INSULIN ASPART (*BKC) 100 UNITS/ML SUB-Q (09:39)
[2022-06-26] MEDS: hetaSTARCH 6%/NACL 500 ML 250 ML IV CONT (09:48)
--- NOTE | 2022-06-26 10:33 | WPDINTPN ---
Progress Note: A&P Assessment and Plan (1) Acute respiratory failure with hypoxia: Code(s): J96.01 - Acute respiratory failure with hypoxia Status: Acute Assessment and Plan: Acute respiratory failure likely related to cardiac arrest -patient was intubated ED on 06/11/2022 -patient was extubated on 06/19 after weaning trials for couple of days. After few hours patient became tachypneic, with increased work of breathing and respiratory distress. Patient was given additional dose of Lasix and was placed on BiPAP. On BiPAP patient initially improved later deteriorated and was reintubated on 06/19 Post extubation I did not hear any stridor on exam. Patient was wheezing and grunting but it was not inspiratory stridor. Later I was told by the nursing staff the patient was stridorous prior to re-intubation. Status post Solu-Medrol 06/21 -completed a course of Solu-Medrol. Cuff leak present today on exam. Failed PSV trial within minutes due to high RSBI. Placed on pressure support of 12/5. Continue as tolerated 06/22 -failed PSV weaning trial. Needs pressure support of 12/5 for adequate RSBI. Will continue as tolerated 06/23 -failed 5/8 PSV trial due to high RSBI. Requires 12/8 pressure support for adequate RSBI. Continue as tolerated 06/24 -failed weaning trial within minutes with high RSBI and respiratory distress. I increased pressure support up to 15 that did not help and patient's respiratory rate remained of 30 with visible use of accessory muscles and patient was in respiratory distress. 06/25: Failed pressure support, was started on ASV mode of ventilation, tolerated ASV all day long before he was switched to CMV for tachypnea and tachycardia -blood pressures this morning were low, as the bedside RN to wean the propofol, continue Precedex infusion -continue CMV mode of ventilation, at 30% FiO2, wean FiO2 to maintain O2 sats greater than 92% -patient diuresed well, will hold diuresis today on 06/26, due to low blood pressures -continue bronchodilators (Atrovent and ipratropium) S/P Unasyn for a 10 day course. DC vancomycin 06/21 Patient has been failing weaning trials and is close to date 12 on the ventilator. It is likely the patient will need tracheostomy and PEG tube if family desires. I discussed with patient's , she is agreeable to tracheostomy and PEG tube placement. ENT cannot do a tracheostomy until 07/01/2022 (2) Cardiac arrest with ventricular fibrillation: Code(s): I46.9 - Cardiac arrest, cause unspecified; I49.01 - Ventricular fibrillation Status: Acute Assessment and Plan: Patient presented with VFib arrest, ROSC within 15 minutes after EMS arrived and started CPR, (total down time was about 25 minutes.) -patient status post target temperature management, -elevated troponins likely related to cardiac arrest -post target temperature management he is following simple commands with all 4 extremities 06/16/2022: Patient had slow VFib/V-tach with no ICD discharge, requiring defibrillation x1, electrolytes were within normal limits patient was given amiodarone bolus and started on amiodarone infusion,. Cardiology was present during the episode. Cardiology going to evaluate AICD discharge thresholds Cardiology has switched amiodarone infusion to p.o. amiodarone now 06/14/2022 echocardiogram showed LV chamber dimension is severely enlarged, severely reduced LV systolic function with EF of 25-30%, mild aortic valve sclerosis, trace mitral valve regurg left atrial chamber dimension is mildly enlarged. (3) Acute kidney injury: Code(s): N17.9 - Acute kidney failure, unspecified Status: Acute Assessment and Plan: Patient with acute kidney injury likely related cardiac arrest, diuretics Patient presented with elevated creatinine but improved with IV fluids 06/20 Patient was given diuretics yesterday and creatinine has now increased to 2.2 Hold further diuretics Kelly
--- NOTE | 2022-06-26 10:41 | PCFNICU ---
ICU Rounding Note: Pt current nutrition is Vital AF 1.2 at 45 ml/hr Nutrition recommendation:once propofol has been discontinued recommend 65 ml/hr. Last recorded weight is 109.9 kg. Bowel Motility:+Bm reported 06/26 Labs Reviewed:Glu 169, GFR 53, Hct 31.9,Hgb 9.9 Meds Noted:Precedex,Propofol, Novolog, Lantus,Protonix, Lovenox, Lipitor. Skin: WNL Additional Notes:Patient remains on mechanical vent. Weaning sedation,Propofol at 6.49 ml/fm=993 kcals. Plans for PEG/Trach next week. Following daily in ICU rounds. follow up T/F monitor feeding tolerance, per policy gastric residual, wt and labs.
[2022-06-26] MEDS: PROPOFOL IV EMULSION 100 ML 6.49 MG IV CONT (11:51)
[2022-06-26 12:20] LABS: Glucose Point of Care 189 mg/dl (65-105)
[2022-06-26] MEDS: AMIODARONE HCL 200 MG TABLET 400 MG PO (13:08)
[2022-06-26 16:25] LABS: Glucose Point of Care 190 mg/dl (65-105)
[2022-06-26] MEDS: dexmedeTOMIDine 400 MCG/100 ML 400 MCG/100 ML BAG 19.15 MCG IV CONT (17:42)
[2022-06-26 20:38] LABS: Glucose Point of Care 188 mg/dl (65-105)
[2022-06-26] MEDS: MINERAL OIL/WHITE PETROLATUM OINTMENT 1 APPLIC EACH EYE (20:40)
[2022-06-26] MEDS: INSULIN GLARGINE (*BKC) 100 UNITS/ML 45 UNITS SUB-Q (20:41)
[2022-06-26] MEDS: SACUBITRIL/VALSARTAN 12-13 MG TABLET 1 TAB PO (20:49)
[2022-06-26] MEDS: dexmedeTOMIDine 400 MCG/100 ML 400 MCG/100 ML BAG 16.41 MCG IV CONT (23:03)
[2022-06-27] VITALS (37 sets, daily range): BP systolic 85–144; BP diastolic 58–85; PULSE 60–91; RESP 15–95; TEMP 36.5–37.7; O2SAT 25–100
[2022-06-27 00:09] LABS: Glucose Point of Care 190 mg/dl (65-105)
[2022-06-27] MEDS: PROPOFOL IV EMULSION 100 ML 12.97 MG IV CONT (02:48)
[2022-06-27 04:34] LABS: Glucose Point of Care 163 mg/dl (65-105)
[2022-06-27 04:41] LABS: Hematocrit 29.6 % (42.0-52.0); Mean Corpuscular HGB Conc 30.4 g/dl (32-36); Mean Corpuscular Hemoglobin 30.6 pg (26-34); Mean Corpuscular Volume 100.7 fl (80-100); Mean Platelet Volume 9.9 fl (7.4-10.4); Platelet Count Result 265 k/mm3 (150-375); Red Blood Count 2.94 M/mm3 (4.6-6.20); Red Cell Distribution Width 13.2 % (11.5-14.5)
[2022-06-27 04:54] LABS: Alanine Aminotransferase 28 U/L (6-50); Albumin Level 3.1 g/dL (3.5-5.1); Alkaline Phosphatase 90 U/L (38-126); Anion Gap 10 mmol/L (8-16); Aspartate Amino Transferase 26 U/L (17-59); Bilirubin,Total 0.4 mg/dL (0.2-1.3); Blood Urea Nitrogen 57 mg/dL (9-20); Calcium 8.5 mg/dL (8.4-10.2); Carbon Dioxide 31 mmol/L (22-30); Chloride 105 mmol/L (98-107); Estimated CRCL calculation 55 ml/min; Estimated Glomerular Filt Rate 59; Glucose 173 mg/dL (65-110); Magnesium 2.3 mg/dL (1.6-2.3); Potassium 3.6 mmol/L (3.4-5.0); Sodium 146 mmol/L (137-145)
[2022-06-27 05:41] LABS: Alveolar/Arterial O2 Gradient 86.6 mmHg; Base Excess ABG 5.3 mEq/l (+/-2.0); Carboxyhemoglobin 0.3 % THb (0-2.0); Fractional Inspired Oxygen 30 %; HCO3 ABG 30.6 mEq/l (22.0-26.0); Methemoglobin ABG 0.2 %THb (0-1.5); Oxygen Content ABG 14.3 %vol (16.0-22.0); Oxygen Saturation ABG 94.3 % (95.0-100.0); Oxyhemoglobin 93.5 % THb (90.0-100.0); PCO2 ABG 48.3 mmHg (35.0-45.0); PO2 ABG 70.6 mmHg (80.0-100.0); PO2 FiO2 Ratio Arterial Blood 2.35 %; Total Hemoglobin 10.8 g/dL (12.0-18.0); pH ABG 7.419 (7.350-7.450)
[2022-06-27 05:42] LABS: Device VENTILATOR; Modified Allen's Test Pass; Site Drawn RIGHT RADIAL
[2022-06-27 05:43] LABS: Arterial Blood Gas PEEP 5 cmH2O; Arterial Blood Gas Tidal Volume 450 ml; Arterial Blood Gas Vent Mode CMV; Arterial Blood Gas Ventilator rate 16 /MIN
[2022-06-27] MEDS: dexmedeTOMIDine 400 MCG/100 ML 400 MCG/100 ML BAG 13.68 MCG IV CONT (06:08)
[2022-06-27] MEDS: CENTRAL LINE FLUSH 10 ML IV PUSH ×3 (06:09→20:58)
[2022-06-27] MEDS: IPRATROPIUM BR 0.02% INH SOLN 0.5 MG/2.5 ML VIAL INHALATION ×3 (07:43→21:07)
[2022-06-27] MEDS: ALBUTEROL SULFATE NEB 2.5 MG/3 ML INH INHALATION ×3 (07:43→21:08)
[2022-06-27 07:51] LABS: Glucose Point of Care 169 mg/dl (65-105)
[2022-06-27] MEDS: MINERAL OIL/WHITE PETROLATUM OINTMENT 1 APPLIC EACH EYE ×2 (09:26→20:57)
[2022-06-27] MEDS: METOPROLOL SUCCINATE EXT REL 12.5 MG TABCR PO (09:26)
[2022-06-27] MEDS: AMIODARONE HCL 200 MG TABLET 400 MG PO (09:27)
[2022-06-27] MEDS: PANTOPRAZOLE SODIUM IV 40 MG VIAL IV PUSH (09:27)
[2022-06-27] MEDS: ATORVASTATIN 40 MG TABLET PO (09:27)
[2022-06-27] MEDS: SACUBITRIL/VALSARTAN 12-13 MG TABLET 1 TAB PO (09:27)
[2022-06-27] MEDS: ENOXAPARIN 40 MG/0.4 ML SYRINGE SUB-Q (09:27)
--- NOTE | 2022-06-27 11:20 | WPDINTPN ---
Progress Note: A&P Assessment and Plan (1) Acute respiratory failure with hypoxia: Code(s): J96.01 - Acute respiratory failure with hypoxia Status: Acute Assessment and Plan: Acute respiratory failure likely related to cardiac arrest -patient was intubated ED on 06/11/2022 -patient was extubated on 06/19 after weaning trials for couple of days. After few hours patient became tachypneic, with increased work of breathing and respiratory distress. Patient was given additional dose of Lasix and was placed on BiPAP. On BiPAP patient initially improved later deteriorated and was reintubated on 06/19 Post extubation I did not hear any stridor on exam. Patient was wheezing and grunting but it was not inspiratory stridor. Later I was told by the nursing staff the patient was stridorous prior to re-intubation. Status post Solu-Medrol 06/21 -completed a course of Solu-Medrol. Cuff leak present today on exam. Failed PSV trial within minutes due to high RSBI. Placed on pressure support of 12/5. Continue as tolerated 06/22 -failed PSV weaning trial. Needs pressure support of 12/5 for adequate RSBI. Will continue as tolerated 06/23 -failed 5/8 PSV trial due to high RSBI. Requires 12/8 pressure support for adequate RSBI. Continue as tolerated 06/24 -failed weaning trial within minutes with high RSBI and respiratory distress. I increased pressure support up to 15 that did not help and patient's respiratory rate remained of 30 with visible use of accessory muscles and patient was in respiratory distress. 06/25: Failed pressure support, was started on ASV mode of ventilation, tolerated ASV all day long before he was switched to CMV for tachypnea and tachycardia 06/26: Patient tolerated pressure support ventilation 12/5 for about 2 hours, after that he was put on ASV all day long. Switched to CMV during night as he does not sleep in this start him on propofol so we can get some rest. -blood pressures are much improved this morning -will diurese again today -continue bronchodilators (Atrovent and ipratropium) S/P Unasyn for a 10 day course. DC vancomycin 06/21 Patient has been failing weaning trials and is close to date 12 on the ventilator. It is likely the patient will need tracheostomy and PEG tube if family desires. I discussed with patient's , she is agreeable to tracheostomy and PEG tube placement. ENT cannot do a tracheostomy until 07/01/2022 (2) Cardiac arrest with ventricular fibrillation: Code(s): I46.9 - Cardiac arrest, cause unspecified; I49.01 - Ventricular fibrillation Status: Acute Assessment and Plan: Patient presented with VFib arrest, ROSC within 15 minutes after EMS arrived and started CPR, (total down time was about 25 minutes.) -patient status post target temperature management, -elevated troponins likely related to cardiac arrest -post target temperature management he is following simple commands with all 4 extremities 06/16/2022: Patient had slow VFib/V-tach with no ICD discharge, requiring defibrillation x1, electrolytes were within normal limits patient was given amiodarone bolus and started on amiodarone infusion,. Cardiology was present during the episode. Cardiology going to evaluate AICD discharge thresholds Cardiology has switched amiodarone infusion to p.o. amiodarone now 06/14/2022 echocardiogram showed LV chamber dimension is severely enlarged, severely reduced LV systolic function with EF of 25-30%, mild aortic valve sclerosis, trace mitral valve regurg left atrial chamber dimension is mildly enlarged. (3) Acute kidney injury: Code(s): N17.9 - Acute kidney failure, unspecified Status: Acute Assessment and Plan: Patient with acute kidney injury likely related cardiac arrest, diuretics Patient presented with elevated creatinine but improved with IV fluids 06/20 Patient was given diuretics yesterday and creatinine has now increased to 2.2 Hold further
--- NOTE | 2022-06-27 11:21 | PCFNICU ---
ICU Rounding Note: Pt current nutrition is Vital AF 1.2 at 65 ml/hr Last recorded weight is 117.3 kg, up from 113 kg on admit. Bowel Motility:+BM reported 06/26 Labs Reviewed:Glu 173, BUN 53, Na 146, Alb 3.1 Meds Noted:Precedex,Versed, NovoLog, Lantus,Protonix, Lovenox, Lipitor. Skin: Skin tear-buttock Additional Notes: Patient remains on mechanical vent. Tube feedings at goal rate of 65 ml/hr of Vital AF 1.2. Flush has been increased to 60 ml q 4 hours, Na 146 today. Propofol has been discontinued. Plans for possible PEG/Trach next week. Agree with diet orders. Following daily in ICU rounds. follow up T/F monitor feeding tolerance, per policy gastric residual, wt and labs.
[2022-06-27] MEDS: BUMETANIDE INJ 1 MG/4 ML VIAL IV PUSH (11:50)
[2022-06-27] MEDS: dexmedeTOMIDine 400 MCG/100 ML 400 MCG/100 ML BAG 19.15 MCG IV CONT ×2 (12:34→18:16)
[2022-06-27 13:28] LABS: Glucose Point of Care 239 mg/dl (65-105)
[2022-06-27] MEDS: PROPOFOL IV EMULSION 100 ML 3.24 MG IV CONT (15:59)
[2022-06-27 17:58] LABS: Glucose Point of Care 179 mg/dl (65-105)
[2022-06-27 20:55] LABS: Glucose Point of Care 177 mg/dl (65-105)
[2022-06-27] MEDS: INSULIN GLARGINE (*BKC) 100 UNITS/ML 45 UNITS SUB-Q (20:57)
[2022-06-28] VITALS (46 sets, daily range): BP systolic 85–100; BP diastolic 50–72; PULSE 60–82; RESP 19–29; TEMP 36.7–37.4; O2SAT 95–100
[2022-06-28] MEDS: dexmedeTOMIDine 400 MCG/100 ML 400 MCG/100 ML BAG 10.94 MCG IV CONT (00:18)
[2022-06-28] MEDS: PROPOFOL IV EMULSION 100 ML 12.97 MG IV CONT ×2 (00:20→06:47)
[2022-06-28 00:30] LABS: Glucose Point of Care 162 mg/dl (65-105)
[2022-06-28 06:17] LABS: Hemoglobin 9.3 g/dL (14.0-18.0); Mean Corpuscular Hemoglobin 30.4 pg (26-34); Mean Platelet Volume 10.5 fl (7.4-10.4); Platelet Count Result 305 k/mm3 (150-375); Red Blood Count 3.06 M/mm3 (4.6-6.20); Red Cell Distribution Width 13.2 % (11.5-14.5); White Blood Count 8.9 K/mm3 (4.5-10.0)
[2022-06-28 06:43] LABS: Glucose Point of Care 172 mg/dl (65-105)
[2022-06-28 06:47] LABS: Alanine Aminotransferase 31 U/L (6-50); Albumin Level 3.1 g/dL (3.5-5.1); Alkaline Phosphatase 111 U/L (38-126); Anion Gap 6 mmol/L (8-16); Aspartate Amino Transferase 25 U/L (17-59); Bilirubin,Total 0.5 mg/dL (0.2-1.3); Blood Urea Nitrogen 54 mg/dL (9-20); Calcium 8.7 mg/dL (8.4-10.2); Carbon Dioxide 31 mmol/L (22-30); Chloride 108 mmol/L (98-107); Estimated CRCL calculation 56 ml/min; Estimated Glomerular Filt Rate 59; Glucose 171 mg/dL (65-110); Magnesium 2.3 mg/dL (1.6-2.3); Potassium 3.6 mmol/L (3.4-5.0); Sodium 145 mmol/L (137-145)
[2022-06-28] MEDS: dexmedeTOMIDine 400 MCG/100 ML 400 MCG/100 ML BAG 16.41 MCG IV CONT (06:48)
[2022-06-28 07:43] LABS: Alveolar/Arterial O2 Gradient 72.1 mmHg; Base Excess ABG 4.7 mEq/l (+/-2.0); Carboxyhemoglobin 0.2 % THb (0-2.0); HCO3 ABG 29.9 mEq/l (22.0-26.0); Oxygen Content ABG 14.8 %vol (16.0-22.0); Oxygen Saturation ABG 96.6 % (95.0-100.0); Oxyhemoglobin 95.2 % THb (90.0-100.0); PCO2 ABG 47.2 mmHg (35.0-45.0); PO2 ABG 86.3 mmHg (80.0-100.0); pH ABG 7.419 (7.350-7.450)
[2022-06-28 07:44] LABS: Fractional Inspired Oxygen 30 %; Methemoglobin ABG 0.2 %THb (0-1.5); PO2 FiO2 Ratio Arterial Blood 2.88 %; Reduced Hemoglobin 4.4 %THb (0-5.0)
[2022-06-28 07:46] LABS: Arterial Blood Gas PEEP 5 cmH2O; Arterial Blood Gas Tidal Volume 450 ml; Arterial Blood Gas Vent Mode CMV; Arterial Blood Gas Ventilator rate 16 /MIN; Device VENTILATOR; Modified Allen's Test Unable to perform; Site Drawn RIGHT RADIAL
[2022-06-28] MEDS: IPRATROPIUM BR 0.02% INH SOLN 0.5 MG/2.5 ML VIAL INHALATION ×3 (08:04→20:26)
[2022-06-28] MEDS: ALBUTEROL SULFATE NEB 2.5 MG/3 ML INH INHALATION ×3 (08:04→20:27)
[2022-06-28] MEDS: MINERAL OIL/WHITE PETROLATUM OINTMENT 1 APPLIC EACH EYE ×2 (08:49→20:37)
[2022-06-28] MEDS: polyethylene glycoL 3350 17 GM POWD.PACK PO (08:49)
[2022-06-28] MEDS: SACUBITRIL/VALSARTAN 12-13 MG TABLET 1 TAB PO ×2 (08:49→20:37)
[2022-06-28] MEDS: METOPROLOL SUCCINATE EXT REL 12.5 MG TABCR PO (08:50)
[2022-06-28] MEDS: ENOXAPARIN 40 MG/0.4 ML SYRINGE SUB-Q (08:50)
[2022-06-28] MEDS: AMIODARONE HCL 200 MG TABLET 400 MG PO (08:50)
[2022-06-28] MEDS: ATORVASTATIN 40 MG TABLET PO (08:51)
[2022-06-28] MEDS: PANTOPRAZOLE SODIUM IV 40 MG VIAL IV PUSH (08:51)
[2022-06-28] MEDS: CENTRAL LINE FLUSH 10 ML IV PUSH ×3 (09:02→20:37)
--- NOTE | 2022-06-28 09:02 | P.PNINT_ITS ---
Progress Note: A&P Assessment and Plan (1) Acute respiratory failure with hypoxia: Code(s): J96.01 - Acute respiratory failure with hypoxia Status: Acute Assessment and Plan: Acute respiratory failure likely related to cardiac arrest -patient was intubated ED on 06/11/2022 -patient was extubated on 06/19 after weaning trials for couple of days. After few hours patient became tachypneic, with increased work of breathing and respiratory distress. Patient was given additional dose of Lasix and was placed on BiPAP. On BiPAP patient initially improved later deteriorated and was reintubated on 06/19 Post extubation I did not hear any stridor on exam. Patient was wheezing and grunting but it was not inspiratory stridor. Later I was told by the nursing staff the patient was stridorous prior to re-intubation. Status post Solu- Medrol 06/21 -completed a course of Solu-Medrol. Cuff leak present today on exam. Failed PSV trial within minutes due to high RSBI. Placed on pressure support of 12/5. Continue as tolerated 06/22 -failed PSV weaning trial. Needs pressure support of 12/5 for adequate RSBI. Will continue as tolerated 06/23 -failed 5/8 PSV trial due to high RSBI. Requires 12/8 pressure support for adequate RSBI. Continue as tolerated 06/24 -failed weaning trial within minutes with high RSBI and respiratory distress. I increased pressure support up to 15 that did not help and patient's respiratory rate remained of 30 with visible use of accessory muscles and patient was in respiratory distress. 06/25: Failed pressure support, was started on ASV mode of ventilation, tolerated ASV all day long before he was switched to CMV for tachypnea and tachycardia 06/26: Patient tolerated pressure support ventilation 12/5 for about 2 hours, after that he was put on ASV all day long. Switched to CMV during night as he does not sleep in this start him on propofol so we can get some rest. -blood pressures are much improved this morning 06/27/2022: Patient did tolerate PSV 12/5 for roughly 2-1/2 hours and then was anxious, worked up because they had to clean him after his bowel movement and was placed on CMV mode of ventilation. Patient diuresed very well, chest x-ray with improvement on the right side. -will diurese again today -continue bronchodilators (Atrovent and ipratropium) S/P Unasyn for a 10 day course. DC vancomycin 06/21 Patient has been failing weaning trials and is close to date 12 on the ventilator. It is likely the patient will need tracheostomy and PEG tube if family desires. I discussed with patient's , she is agreeable to tracheostomy and PEG tube placement. ENT cannot do a tracheostomy until 07/01/2022 (2) Cardiac arrest with ventricular fibrillation: Code(s): I46.9 - Cardiac arrest, cause unspecified; I49.01 - Ventricular fibrillation Status: Acute Assessment and Plan: Patient presented with VFib arrest, ROSC within 15 minutes after EMS arrived and started CPR, (total down time was about 25 minutes.) -patient status post target temperature management, -elevated troponins likely related to cardiac arrest -post target temperature management he is following simple commands with all 4 extremities 06/16/2022: Patient had slow VFib/V-tach with no ICD discharge, requiring defibrillation x1, electrolytes were within normal limits patient was given amiodarone bolus and started on amiodarone infusion,. Cardiology was present during the episode. Cardiology going to evaluate AICD discharge thresholds Cardiology has switched amiodarone infusion to p.o. amiodarone now 06/14/2022 echocardiogram showed LV chamb
[2022-06-28] MEDS: FUROSEMIDE INJ 40 MG/4 ML VIAL 20 MG IV PUSH (10:24)
[2022-06-28 12:06] LABS: Glucose Point of Care 177 mg/dl (65-105)
[2022-06-28] MEDS: dexmedeTOMIDine 400 MCG/100 ML 400 MCG/100 ML BAG 21.88 MCG IV CONT (12:52)
--- NOTE | 2022-06-28 13:25 | PCNFU ---
Nutrition Follow-Up Complete: decreased nutrient needs related to NPO status as evidence by diet order goal: Meet estimated energy needs through TF Patient is progressing towards goal. We will continue current goal. Pt current nutrition is Vital AF 1.2 at 45 ml/hr . Nutrition recommendation: goal rate at 65 ml/hr Last recorded weight is 119.5 kg. Bowel Motility:+Bm reported 06/16 Labs Reviewed:Glu 171, BUN 54, Alb 3.1 Meds Noted:Miralax,Precedex, NovoLog, Lantus,Protonix, Lovenox, Lipitor,Propofol 9.49 ml/hr Skin: Skin Tear-buttock Additional Notes: Patient current with mechanical vent. tube feedings of Vital AF 1.2 at 45 ml/hr and tolerating. Tube feedings providing 1188 kcals/74 gms protein/803 ml water. Propofol providing an additional 171 kcals. Recommend tube feedings advancing to 55 ml/hr if propofol remains at 10 mics. Once tube feedings have been discontinued recommend tube feedings at goal rate of 65 ml/hr. Flush at 60 ml q 4 hours. Plans for Trach/PEG next week. follow up T/F monitor feeding tolerance, per policy gastric residual, wt and labs
--- NOTE | 2022-06-28 14:24 | PM.PNCARD ---
Progress Note: A&P Assessment and Plan (1) Cardiac arrest with ventricular fibrillation: Code(s): I46.9 - Cardiac arrest, cause unspecified; I49.01 - Ventricular fibrillation Status: Acute (2) Presence of combination internal cardiac defibrillator (ICD) and pacemaker: Code(s): Z95.810 - Presence of automatic (implantable) cardiac defibrillator Status: Acute (3) Nonischemic cardiomyopathy: Code(s): I42.8 - Other cardiomyopathies Status: Acute Plan 77-year-old man with longstanding nonischemic cardiomyopathy had out of hospital VF arrest resuscitated. He is neurologically intact but unfortunately is continuing to be dependent on ventilator support. He cannot have endotracheal tube in place much longer. Family wanted to wait for a while to make the decision for tracheostomy. That is now planned for Friday. Ramakrishna Tolentino MD [facility] Subjective Date/time seen: date of service:06/28/22 14:24 Interval history: Reason for visit: Cardiac arrest ? Follow-up visit in this 77-year-old man with: ? Severe nonischemic cardiomyopathy with lethal ventricular arrhythmias admitted following out of hospital VT arrest which was terminated by his ICD.? He was admitted to the ICU for evaluation and management following this.? He remains intubated on ventilator support.? ?? Date of service 06/24/2022:? ? Patient is condition essentially unchanged clinically.? Remains intubated on ventilator support in the ICU.? Low dose of the Entresto started yesterday.? Seems to be tolerating that hemodynamically.? Diuresing well in the past 24 hours.? Unfortunately failed weaning trial again this morning.? Spoke to patient and family will likely need a tracheostomy in the near future because of ongoing ventilator dependency 06/25/2022: No acute events overnight. Condition remains unchanged. Remains intubated. Hemodynamics tolerating Entresto and beta marisela. 06/28/2022: No new cardiovascular events patient patient is hemodynamically tolerating low doses of Entresto and beta-marisela. Plans are place Friday for tracheostomy and PEG tube. Patient unfortunately remains unweanable from ventilator support Exam Narrative: patient is arousable alert and responsive on the ventilator Const: General: comfortable, no acute distress, in distress mild and respiratory and patient obtunded; No confusion Orientation/consciousness: oriented to person, patient oriented x3, No confusion and patient obtunded Other: sedated on ventilator support HENMT: Mouth: Yes moist mucous membranes Other: endotracheal tube/ intubated mechanical ventilatory support Eyes: Sclera: sclerae normal Other: Pupils equal and round Neck: Neck: supple Thyroid: thyroid normal Other: unable to assess JVD given his obesity Resp: Effort & Inspection: normal respiratory effort Auscultation: clear to auscultation bilaterally Other: On mechanical ventilation Cardio: Rate: regular rate Rhythm: regular rhythm and abnormal rhythm regularly irregular Heart sounds: no murmurs GI: Inspection: normal to inspection Auscultation: normal bowel sounds Other: No hepatosplenomegaly Skin: General skin exam: normal color and no rashes or lesions noted Neuro: General: oriented to person, patient oriented x3, No confusion and patient obtunded Other: Sedated Extrem: Right lower extremity: no edema Left lower extremity: no edema Other: Mild diffuse edema Psych: Mental Status: mental status grossly normal Other: Intubated and sedated Objective Data Vital Signs Vital Signs: Vital Signs - 24 hr 06/27/22 15:59 06/27/22 16:00 06/27/22 16:00 Temperature Pulse Rate 84 Respiratory Rate 21 H Blood Pressure Pulse Oximetry 94 Oxygen Delivery Mechanical Ventilation Fraction of Inspired Oxygen 30 30 06/27/22 16:00 06/27/22 16:00 06/27/22 17:20 Temperature 37.6 C Pulse Rate 77 61 60 Respiratory Rate 15
--- NOTE | 2022-06-28 16:03 | WPDANESEPPF ---
Anes - Initial Pre Proc Eval Procedure: Operation Date: 07/01/22 10:00 Proposed Procedures p Tracheostomy - Justyn Dave MD Date/Time: 06/28/22 16:03 Surgeon: Dusty Jiménez MD Pre Op Diagnosis: V FIB ARREST, Pulmonary Edema Patient Data Age: 77 Gender: M Height: 1.7 m Weight: 119.5 kg Last Vital Signs Temp 37.4 C 06/28/22 14:00 Pulse 79 06/28/22 14:11 Resp 20 06/28/22 14:11 BP 85/57 L 06/28/22 14:00 Pulse Ox 95 06/28/22 14:00 O2 Del Method Mechanical Ventilation 06/28/22 13:55 O2 Flow Rate 4 06/19/22 16:00 FiO2 30 06/28/22 13:55 Allergies Allergy/AdvReac Type Severity Reaction Status Date / Time No Known Allergies Allergy Verified 05/22/22 08:12 Home Medications Medication Instructions Recorded Confirmed Type multivitamin 1 tablet PO DAILY 09/27/19 06/12/22 History ascorbic acid (vitamin C) 1,000 mg 1,000 mg PO DAILY 02/08/20 06/12/22 History tablet,extended release rivaroxaban 20 mg tablet (Xarelto) 20 mg PO DAILY 03/14/21 06/12/22 History coQ10 (ubiquinol) 200 mg capsule 200 mg PO DAILY 06/12/21 06/12/22 History atorvastatin 40 mg tablet 40 mg PO DAILY #90 tabs 12/21/21 06/12/22 Rx nitroglycerin 0.4 mg sublingual See Rx Instructions .Route 12/21/21 06/12/22 Rx tablet .COMPLEX #25 tabs telmisartan 80 mg tablet 80 mg PO DAILY #90 tabs 12/21/21 06/12/22 Rx Januvia 100 mg tablet (sitagliptin 100 mg PO DAILY #90 tabs 02/05/22 06/12/22 Rx phosphate) dapagliflozin 5 mg tablet (Farxiga) 5 mg PO DAILY #30 tabs 04/01/22 06/12/22 Rx amiodarone 400 mg tablet 200 mg PO DAILY 06/12/22 06/12/22 History cholecalciferol (vitamin D3) 25 25 mcg PO Q12H 06/12/22 06/12/22 History mcg (1,000 unit) tablet (Vitamin D3) metoprolol succinate 25 mg 25 mg PO DAILY 06/12/22 06/12/22 History tablet,extended release 24 hr omega-3 fatty acids 1,000 mg 4,000 mg PO DAILY 06/12/22 06/12/22 History capsule spironolactone 25 mg tablet 25 mg PO DAILY 06/12/22 06/12/22 History trazodone 50 mg tablet 50 - 100 mg PO HS PRN Insomnia 06/12/22 06/12/22 History Laboratory Tests 06/27/22 06/27/22 06/28/22 17:56 20:53 00:21 WBC RBC Hgb Hct MCV MCH MCHC RDW Plt Count MPV Puncture Site ABG pH ABG pCO2 ABG pO2 ABG PO2/FiO2 Ratio ABG HCO3 ABG O2 Saturation ABG O2 Content ABG Base Excess A-a Gradient Oxyhemoglobin Carboxyhemoglobin Methemoglobin Reduced Hemoglobin Total Hemoglobin O2 Delivery Device O2 Liters/Min Minute Volume Vent Rate Vent Mode FiO2 Tidal Volume PEEP Peak Inspir Pressure Pressure Support Sodium Potassium Chloride Carbon Dioxide Anion Gap BUN Creatinine Estim Creat Clear Calc Estimated GFR Glucose POC Capillary Glucose 179 mg/dl H mg/dl 177 mg/dl H mg/dl 162 mg/dl H mg/dl (65-105) (65-105) (65-105) Calcium Magnesium Total Bilirubin AST ALT Alkaline Phosphatase Total Protein Albumin 06/28/22 06/28/22 06/28/22 05:21 05:25 05:25 WBC 8.9 K/mm3 K/mm3 (4.5-10.0) RBC 3.06 M/mm3 L M/mm3 (4.6-6.20) Hgb 9.3 g/dL L g/dL (14.0-18.0) Hct 30.0 % L % (42.0-52.0) MCV 98.0 fl fl (80-100) MCH 30.4 pg pg (26-34) MCHC 31.0 g/dl L g/dl (32-36) RDW 13.2 % % (11.5-14.5) Plt Count 305 k/mm3 k/mm3 (150-375) MPV
[2022-06-28 18:32] LABS: Glucose Point of Care 166 mg/dl (65-105)
[2022-06-28] MEDS: dexmedeTOMIDine 400 MCG/100 ML 400 MCG/100 ML BAG IV CONT (18:56)
[2022-06-28] MEDS: INSULIN GLARGINE (*BKC) 100 UNITS/ML 45 UNITS SUB-Q (20:38)
[2022-06-28 20:43] LABS: Glucose Point of Care 172 mg/dl (65-105)
[2022-06-28] MEDS: PROPOFOL IV EMULSION 100 ML 9.73 MG IV CONT (21:39)
[2022-06-28 23:46] LABS: Glucose Point of Care 164 mg/dl (65-105)
[2022-06-29] VITALS (52 sets, daily range): BP systolic 64–137; BP diastolic 42–82; PULSE 59–112; RESP 17–32; TEMP 36.6–37.6; O2SAT 93–100
[2022-06-29] MEDS: NOREPINEPHRINE 8 MG/D5W 250 ML 8 MG/250 ML BAG 9.38 MG IV CONT (01:35)
[2022-06-29] MEDS: dexmedeTOMIDine 400 MCG/100 ML 400 MCG/100 ML BAG 16.41 MCG IV CONT (01:50)
[2022-06-29] MEDS: ALBUTEROL SULFATE NEB 2.5 MG/3 ML INH INHALATION ×4 (02:58→20:11)
[2022-06-29] MEDS: IPRATROPIUM BR 0.02% INH SOLN 0.5 MG/2.5 ML VIAL INHALATION ×4 (02:58→20:11)
[2022-06-29 05:04] LABS: Hematocrit 31.7 % (42.0-52.0); Hemoglobin 9.9 g/dL (14.0-18.0); Mean Corpuscular HGB Conc 31.2 g/dl (32-36); Mean Corpuscular Hemoglobin 31.2 pg (26-34); Mean Platelet Volume 9.7 fl (7.4-10.4); Platelet Count Result 364 k/mm3 (150-375); Red Blood Count 3.17 M/mm3 (4.6-6.20); Red Cell Distribution Width 13.2 % (11.5-14.5); White Blood Count 12.2 K/mm3 (4.5-10.0)
[2022-06-29 05:16] LABS: Alanine Aminotransferase 31 U/L (6-50); Albumin Level 3.3 g/dL (3.5-5.1); Alkaline Phosphatase 122 U/L (38-126); Anion Gap 14 mmol/L (8-16); Aspartate Amino Transferase 28 U/L (17-59); Bilirubin,Total 0.4 mg/dL (0.2-1.3); Blood Urea Nitrogen 49 mg/dL (9-20); Calcium 8.7 mg/dL (8.4-10.2); Carbon Dioxide 30 mmol/L (22-30); Chloride 105 mmol/L (98-107); Estimated CRCL calculation 62 ml/min; Estimated Glomerular Filt Rate > 60; Glucose 194 mg/dL (65-110); Magnesium 2.2 mg/dL (1.6-2.3); Potassium 3.3 mmol/L (3.4-5.0); Sodium 149 mmol/L (137-145); Triglycerides 107 mg/dL (<150)
[2022-06-29 05:49] LABS: Alveolar/Arterial O2 Gradient 79.1 mmHg; Carboxyhemoglobin 0.3 % THb (0-2.0); Fractional Inspired Oxygen 30 %; HCO3 ABG 27.7 mEq/l (22.0-26.0); Methemoglobin ABG 0.2 %THb (0-1.5); Oxygen Content ABG 14.9 %vol (16.0-22.0); Oxygen Saturation ABG 96.5 % (95.0-100.0); Oxyhemoglobin 95.1 % THb (90.0-100.0); PCO2 ABG 43.1 mmHg (35.0-45.0); PO2 ABG 84.2 mmHg (80.0-100.0); PO2 FiO2 Ratio Arterial Blood 2.81 %; Reduced Hemoglobin 4.4 %THb (0-5.0); Total Hemoglobin 11.1 g/dL (12.0-18.0); pH ABG 7.426 (7.350-7.450)
[2022-06-29 05:51] LABS: Device VENTILATOR; Modified Allen's Test Pass; Site Drawn RIGHT RADIAL
[2022-06-29 05:52] LABS: Arterial Blood Gas PEEP 5 cmH2O; Arterial Blood Gas Tidal Volume 450 ml; Arterial Blood Gas Vent Mode CMV; Arterial Blood Gas Ventilator rate 16 /MIN
[2022-06-29] MEDS: PROPOFOL IV EMULSION 100 ML 12.97 MG IV CONT (06:00)
[2022-06-29] MEDS: CENTRAL LINE FLUSH 10 ML IV PUSH ×3 (06:21→20:39)
[2022-06-29] MEDS: dexmedeTOMIDine 400 MCG/100 ML 400 MCG/100 ML BAG 19.15 MCG IV CONT (06:31)
[2022-06-29] MEDS: ALBUMIN HUMAN 25% 25 GM/100 ML 100 ML IVPB ×3 (08:19→17:06)
--- NOTE | 2022-06-29 09:18 | WPDINTPN ---
Progress Note: A&P Assessment and Plan (1) Acute respiratory failure with hypoxia: Code(s): J96.01 - Acute respiratory failure with hypoxia Status: Acute Assessment and Plan: Acute respiratory failure likely related to cardiac arrest -patient was intubated ED on 06/11/2022 -patient was extubated on 06/19 after weaning trials for couple of days. After few hours patient became tachypneic, with increased work of breathing and respiratory distress. Patient was given additional dose of Lasix and was placed on BiPAP. On BiPAP patient initially improved later deteriorated and was reintubated on 06/19 Post extubation I did not hear any stridor on exam. Patient was wheezing and grunting but it was not inspiratory stridor. Later I was told by the nursing staff the patient was stridorous prior to re-intubation. Status post Solu-Medrol 06/21 -completed a course of Solu-Medrol. Cuff leak present today on exam. Failed PSV trial within minutes due to high RSBI. Placed on pressure support of 12/5. Continue as tolerated 06/22 -failed PSV weaning trial. Needs pressure support of 12/5 for adequate RSBI. Will continue as tolerated 06/23 -failed 5/8 PSV trial due to high RSBI. Requires 12/8 pressure support for adequate RSBI. Continue as tolerated 06/24 -failed weaning trial within minutes with high RSBI and respiratory distress. I increased pressure support up to 15 that did not help and patient's respiratory rate remained of 30 with visible use of accessory muscles and patient was in respiratory distress. 06/25: Failed pressure support, was started on ASV mode of ventilation, tolerated ASV all day long before he was switched to CMV for tachypnea and tachycardia 06/26: Patient tolerated pressure support ventilation 12/5 for about 2 hours, after that he was put on ASV all day long. Switched to CMV during night as he does not sleep in this start him on propofol so we can get some rest. -blood pressures are much improved this morning 06/27/2022: Patient did tolerate PSV 12/5 for roughly 2-1/2 hours and then was anxious, worked up because they had to clean him after his bowel movement and was placed on CMV mode of ventilation. Patient diuresed very well, chest x-ray with improvement on the right side. -patient diuresed well on 06/28, dropped his pressures was started on Levophed, will hold diuresis for now -continue bronchodilators (Atrovent and ipratropium) S/P Unasyn for a 10 day course. DC vancomycin 06/21 Patient has been failing weaning trials and is close to date 12 on the ventilator. It is likely the patient will need tracheostomy and PEG tube if family desires. I discussed with patient's , she is agreeable to tracheostomy and PEG tube placement. ENT cannot do a tracheostomy until 07/01/2022 (2) Cardiac arrest with ventricular fibrillation: Code(s): I46.9 - Cardiac arrest, cause unspecified; I49.01 - Ventricular fibrillation Status: Acute Assessment and Plan: Patient presented with VFib arrest, ROSC within 15 minutes after EMS arrived and started CPR, (total down time was about 25 minutes.) -patient status post target temperature management, -elevated troponins likely related to cardiac arrest -post target temperature management he is following simple commands with all 4 extremities 06/16/2022: Patient had slow VFib/V-tach with no ICD discharge, requiring defibrillation x1, electrolytes were within normal limits patient was given amiodarone bolus and started on amiodarone infusion,. Cardiology was present during the episode. Cardiology going to evaluate AICD discharge thresholds Cardiology has switched amiodarone infusion to p.o. amiodarone now 06/14/2022 echocardiogram showed LV chamber dimension is severely enlarged, severely reduced LV systolic function with EF of 25-30%, mild aortic valve sclerosis, trace mitral valve regurg left atrial chamber dimension is mildly enlarged. (3) Acute kidney
--- NOTE | 2022-06-29 09:38 | PM.PNCARD ---
Progress Note: A&P Assessment and Plan (1) Cardiac arrest with ventricular fibrillation: Code(s): I46.9 - Cardiac arrest, cause unspecified; I49.01 - Ventricular fibrillation Status: Acute Assessment and Plan: Stable rhythm at this point. Continue amiodarone (2) Presence of combination internal cardiac defibrillator (ICD) and pacemaker: Code(s): Z95.810 - Presence of automatic (implantable) cardiac defibrillator Status: Acute (3) Nonischemic cardiomyopathy: Code(s): I42.8 - Other cardiomyopathies Status: Acute Assessment and Plan: Continue current management (4) Hypokalemia: Code(s): E87.6 - Hypokalemia Status: Acute Assessment and Plan: Agree with potassium supplement Plan 77-year-old man with longstanding nonischemic cardiomyopathy had out of hospital VF arrest resuscitated. He is neurologically intact but unfortunately is continuing to be dependent on ventilator support. Subjective Date/time seen: 06/29/22 09:38 Interval history: Reason for visit: Cardiac arrest ? Follow-up visit in this 77-year-old man with: ? Severe nonischemic cardiomyopathy with lethal ventricular arrhythmias admitted following out of hospital VT arrest which was terminated by his ICD.? He was admitted to the ICU for evaluation and management following this.? He remains intubated on ventilator support.? ?? Date of service 06/24/2022:? ? Patient is condition essentially unchanged clinically.? Remains intubated on ventilator support in the ICU.? Low dose of the Entresto started yesterday.? Seems to be tolerating that hemodynamically.? Diuresing well in the past 24 hours.? Unfortunately failed weaning trial again this morning.? Spoke to patient and family will likely need a tracheostomy in the near future because of ongoing ventilator dependency 06/25/2022: No acute events overnight. Condition remains unchanged. Remains intubated. Hemodynamics tolerating Entresto and beta marisela. 06/28/2022: No new cardiovascular events patient patient is hemodynamically tolerating low doses of Entresto and beta-marisela. Plans are place Friday for tracheostomy and PEG tube. Patient unfortunately remains unweanable from ventilator support Date of service 06/29/2022: Awake and responsive but still ventilated. Plan for tracheostomy on Friday. No chest pain or shortness of breath Review of Systems Review of Systems: All systems reviewed & are unremarkable except as noted in HPI and below ROS unobtainable: Yes unobtainable due to endotracheal tube, unobtainable due to medical condition and unobtainable due to mental status Constitutional: Constitutional: Denies chills Cardiovascular: Cardiovascular: Denies chest pain, Reports leg edema and Reports dyspnea Respiratory: Respiratory: Reports dyspnea Gastrointestinal: Gastrointestinal: Denies hematochezia Genitourinary: Genitourinary: Denies hematuria Integumentary/Breasts: Skin/Breast: Denies wounds Neurologic: Denies confusion Psychiatric: Psychiatric: Denies confusion Exam Narrative: patient is arousable alert and responsive on the ventilator Const: General: comfortable, no acute distress, in distress mild and respiratory and patient obtunded; No confusion Orientation/consciousness: oriented to person, patient oriented x3, No confusion and patient obtunded Other: sedated on ventilator support HENMT: Mouth: Yes moist mucous membranes Other: endotracheal tube/ intubated mechanical ventilatory support Eyes: Sclera: sclerae normal Other: Pupils equal and round Neck: Neck: supple Thyroid: thyroid normal Other: unable to assess JVD given his obesity Resp: Effort & Inspection: normal respiratory effort Auscultation: clear to auscultation bilaterally Other: On mechanical ventilation Cardio: Rate: regular rate Rhythm: regular rhythm and abnormal rhythm regularly irregular Heart sounds: no murmurs
[2022-06-29] MEDS: polyethylene glycoL 3350 17 GM POWD.PACK PO (10:03)
[2022-06-29] MEDS: AMIODARONE HCL 200 MG TABLET 400 MG PO (10:03)
[2022-06-29] MEDS: PANTOPRAZOLE SODIUM IV 40 MG VIAL IV PUSH (10:03)
[2022-06-29] MEDS: KCL 40 MEQ/WATER 100 ML 100 ML 25 ML IVPB (10:03)
[2022-06-29] MEDS: ENOXAPARIN 40 MG/0.4 ML SYRINGE SUB-Q (10:03)
[2022-06-29] MEDS: MINERAL OIL/WHITE PETROLATUM OINTMENT 1 APPLIC EACH EYE ×2 (10:03→20:38)
[2022-06-29] MEDS: ATORVASTATIN 40 MG TABLET PO (10:04)
--- NOTE | 2022-06-29 11:30 | PM.IMPN ---
Progress Note: A&P Assessment and Plan (1) Acute respiratory failure with hypoxia: Code(s): J96.01 - Acute respiratory failure with hypoxia Status: Acute Assessment and Plan: Resp failure - likely from cardiac arest -continue bronchodilators (Atrovent and ipratropium) S/P Unasyn for a 10 day course. DC vancomycin 06/21 Patient has been failing weaning trials and is close to date 12 on the ventilator. It is likely the patient will need tracheostomy and PEG tube if family desires. I discussed with patient's , she is agreeable to tracheostomy and PEG tube placement. ENT cannot do a tracheostomy until 07/01/2022 (2) Cardiac arrest with ventricular fibrillation: Code(s): I46.9 - Cardiac arrest, cause unspecified; I49.01 - Ventricular fibrillation Status: Acute Assessment and Plan: Patient presented with VFib arrest, ROSC within 15 minutes after EMS arrived and started CPR, (total down time was about 25 minutes.) 06/14/2022 echocardiogram showed LV chamber dimension is severely enlarged, severely reduced LV systolic function with EF of 25-30%, mild aortic valve sclerosis, trace mitral valve regurg left atrial chamber dimension is mildly enlarged. (3) Acute kidney injury: Code(s): N17.9 - Acute kidney failure, unspecified Status: Acute Assessment and Plan: cr 1.1 today -continue to monitor renal function, electrolytes and urine output (4) DM type 2 (diabetes mellitus, type 2): Qualifiers: Diabetes mellitus halfway insulin use: without halfway use Diabetes mellitus complication status: without complication Qualified Code(s): E11.9 - Type 2 diabetes mellitus without complications Code(s): E11.9 - Type 2 diabetes mellitus without complications Status: Acute Assessment and Plan: Continue Accu-Cheks and sliding scale insulin. -continue Lantus at current rate (5) Nonischemic cardiomyopathy: Code(s): I42.8 - Other cardiomyopathies Status: Acute Assessment and Plan: nonischemic cardiomyopathy with EF of 20-25% on an echocardiogram done and 06/12/2021 -status post AICD -off IV fluids. -no plans for further diagnostic workup including cardiac catheterization at this time -continue atorvastatin -patient is now on low-dose metoprolol and Entresto (6) Sepsis: Code(s): A41.9 - Sepsis, unspecified organism Status: Acute Assessment and Plan: Blood urine and sputum cultures sent on 06/17 negative till now Subjective Date/time seen: 06/29/22 11:30 patient is intubated Exam Narrative: General: Intubated and sedated, no acute distress HEENT:? Pupils equal and reactive, sclera is clear Neck:? Supple Respiratory:? Coarse breath sounds bilaterally, decreased at bases, adequate air entry Cardiac:? Paced rhythm Abdomen:? Soft, nontender, nondistended, normoactive bowel sounds, protuberant/obese Extremities:? 1+ edema, palpable pedal pulses Neuro:? Patient is intubated and sedated, does not open his eyes this morning or follows simple commands Skin:? No lesions noted, warm and dry Psych:? Unable to assess at this time Objective Data Vital Signs Vital Signs: Vital Signs - 24 hr 06/28/22 11:36 06/28/22 12:00 06/28/22 12:00 Temperature Pulse Rate 63 Respiratory Rate Blood Pressure Pulse Oximetry 98 97 Oxygen Delivery Mechanical Ventilation Mechanical Ventilation Fraction of Inspired Oxygen 30 30 30 06/28/22 12:00 06/28/22 12:00 06/28/22 13:55 Temperature 99.4 F Pulse Rate 80 72 60 Respiratory Rate 28 H Blood Pressure 93/72 L Pulse Oximetry 96 97 Oxygen Delivery Mechanical Ventilation Fraction of Inspired Oxygen 30 06/28/22 13:55 06/28/22 14:00 06/28/22 14:00 Temperature 99.4 F Pulse Rate 77 71 76 Respiratory Rate 22 H 20 Blood Pressure 85/57 L Pulse Oximetry 95 Oxygen Delivery Fraction of Inspired Oxygen 06/28/22 14:1
[2022-06-29] MEDS: dexmedeTOMIDine 400 MCG/100 ML 400 MCG/100 ML BAG 13.68 MCG IV CONT ×2 (11:59→18:00)
[2022-06-29] MEDS: PROPOFOL IV EMULSION 100 ML 6.49 MG IV CONT (12:00)
[2022-06-29 12:29] LABS: Glucose Point of Care 183 mg/dl (65-105)
--- NOTE | 2022-06-29 14:09 | WPDGICN ---
Assessment and Plan Assessment and plan (1) Cardiac arrest with ventricular fibrillation: Code(s): I46.9 - Cardiac arrest, cause unspecified; I49.01 - Ventricular fibrillation Status: Acute Assessment and Plan: intubated and he is treated by icu and supervisor tile and mottle I met family members at bedside and agreeable for peg placement later this coming week continue with TF by OGT, he is tolerating (2) Acute on chronic systolic CHF (congestive heart failure): Code(s): I50.23 - Acute on chronic systolic (congestive) heart failure Status: Acute (3) Acute respiratory failure with hypoxia: Code(s): J96.01 - Acute respiratory failure with hypoxia Status: Acute Assessment and Plan: intubated (4) Hypoxic ischemic encephalopathy: Code(s): P91.60 - Hypoxic ischemic encephalopathy [HIE], unspecified Status: Acute GI Consult Note Consult date/time: 06/29/22 14:09 Reason for consult: peg placement evaluation, prolonged intubation HPI: Kenny Schneider is a 77 year old male with significant history of atrial flutter, hypertension, congestive heart failure, chronic kidney disease, nonischemic cardiomyopathy, AICD implanted, ejection fraction is 25-30%, moderate aortic stenosis who was brought 06/12 after witnessed cardiac arrest at home and admitted to ICU, intubated. 06/19 Patient was extubated? but had to be reintubated later in the day. He has been getting enteral nutrition by OGT and he is tolerating. Now primary talked to family about G-tube and tracheostomy placement given prolonged intubation. Review of Systems Review of Systems: ROS unobtainable: Yes unobtainable due to endotracheal tube and unobtainable due to mental status [facility] Past Medical History Medical History (Updated 06/29/22 @ 09:39 by Edouard Butterfield MD) Abscess Atrial flutter Benign essential hypertension Bilateral cataracts BMI 38.0-38.9,adult Bronchitis Cardiac arrest with ventricular fibrillation (2013) CHF (congestive heart failure) Chronic anticoagulation CKD (chronic kidney disease) Cough Elevated serum creatinine Encounter for Medicare annual wellness exam History of colon polyps (Unknown) Hyperlipidemia Hypertension Hypotension Impacted cerumen of left ear Nonischemic cardiomyopathy Echocardiogram in March 2021 showed severe LV systolic dysfunction with an EF of 25 to 30%. Otitis of left ear Paroxysmal atrial flutter Pyogenic granuloma Vitamin D deficiency Surgical History Surgical History History of cholecystectomy History of implantable cardioverter-defibrillator (ICD) insertion History of open reduction and internal fixation (ORIF) procedure Bilateral lower extremity fractures. History of total right knee replacement S/P cataract surgery Family History Family History Father Family history of heart disease in male family member before age 55 Family history of cardiovascular disease Mother Family history of heart disease in male family member before age 55 Family history of cardiovascular disease Sibling Colon cancer Social History Social History (Updated 05/31/22 @ 10:18 by Holly Perez [facility]) Social History: Surrogate decision maker: Delaney Schneider, . Code status: Full code. Smoking status: Never smoker Second hand tobacco smoke exposure: No Alcohol intake: never Substance use: never Substance use type: does not use Lack of Transportation: No Lack of Food: Never True Current Housing: I Have Housing Concerned About Future Housing: No Difficulty Paying Gas/Electric Bills: No Difficulty Paying for Meds: No Currently Unemployed: No Education: Associate Degree Difficulty w/ Childcare or Family Care: No Additional living arrangements comments: The patient lives in [place] with his . Additional occupation/education comments:
[2022-06-29 18:17] LABS: Glucose Point of Care 134 mg/dl (65-105)
[2022-06-29] MEDS: SACUBITRIL/VALSARTAN 12-13 MG TABLET 1 TAB PO (20:39)
[2022-06-29] MEDS: INSULIN GLARGINE (*BKC) 100 UNITS/ML 45 UNITS SUB-Q (20:39)
[2022-06-29 20:50] LABS: Glucose Point of Care 151 mg/dl (65-105)
[2022-06-29] MEDS: ETOMIDATE 20 MG/10 ML AMPUL IV PUSH (23:16)
--- NOTE | 2022-06-29 23:27 | PM.EVENT ---
Event Note Event Note Event Note: I was called to bedside around 23:05 the patient had coughed out his ETT. He is maintaining O2 saturation greater than 95% on room air. Patient was on Levophed, Precedex and propofol. He still had audible stridor on auscultation and previous plan was for trach this coming week. Upon evaluation considering the stridor, decision was made to reintubate patient. Patient was given etomidate 20 mg for induction. He was successfully reintubated with glidescope 1st attempt by myself, good color exchange on CO2 colometric indicator, stylet removed and cuff inflated. Chest x-ray showed ET tube above angelita, imaging was difficult to visualize with glare on screen and stat chest x-ray read was ordered.
[2022-06-29] MEDS: dexmedeTOMIDine 400 MCG/100 ML 400 MCG/100 ML BAG 27.35 MCG IV CONT (23:38)
[2022-06-30] VITALS (32 sets, daily range): BP systolic 101–148; BP diastolic 57–78; PULSE 60–104; RESP 18–34; TEMP 37.1–37.6; O2SAT 95–100
[2022-06-30] MEDS: ALBUMIN HUMAN 25% 25 GM/100 ML 100 ML IVPB (00:34)
[2022-06-30 00:49] LABS: Glucose Point of Care 179 mg/dl (65-105)
[2022-06-30] MEDS: ALBUTEROL SULFATE NEB 2.5 MG/3 ML INH INHALATION ×4 (02:55→21:13)
[2022-06-30] MEDS: IPRATROPIUM BR 0.02% INH SOLN 0.5 MG/2.5 ML VIAL INHALATION ×4 (02:55→21:13)
[2022-06-30] MEDS: dexmedeTOMIDine 400 MCG/100 ML 400 MCG/100 ML BAG 32.82 MCG IV CONT ×7 (03:03→21:06)
[2022-06-30 04:52] LABS: Hematocrit 27.4 % (42.0-52.0); Hemoglobin 8.3 g/dL (14.0-18.0); Mean Corpuscular HGB Conc 30.3 g/dl (32-36); Mean Corpuscular Hemoglobin 30.7 pg (26-34); Mean Corpuscular Volume 101.5 fl (80-100); Mean Platelet Volume 10.3 fl (7.4-10.4); Platelet Count Result 270 k/mm3 (150-375); Red Cell Distribution Width 13.2 % (11.5-14.5); White Blood Count 8.6 K/mm3 (4.5-10.0)
[2022-06-30 05:03] LABS: Alanine Aminotransferase 25 U/L (6-50); Albumin Level 3.9 g/dL (3.5-5.1); Alkaline Phosphatase 98 U/L (38-126); Anion Gap 8 mmol/L (8-16); Aspartate Amino Transferase 22 U/L (17-59); Bilirubin,Total 0.6 mg/dL (0.2-1.3); Blood Urea Nitrogen 45 mg/dL (9-20); Carbon Dioxide 30 mmol/L (22-30); Chloride 108 mmol/L (98-107); Estimated CRCL calculation 74 ml/min; Estimated Glomerular Filt Rate > 60; Glucose 176 mg/dL (65-110); Magnesium 2.2 mg/dL (1.6-2.3); Phosphorus 2.3 mg/dL (2.5-4.5); Potassium 3.6 mmol/L (3.4-5.0); Sodium 146 mmol/L (137-145)
[2022-06-30 05:14] LABS: Alveolar/Arterial O2 Gradient 65.3 mmHg; Base Excess ABG 3.3 mEq/l (+/-2.0); Fractional Inspired Oxygen 30 %; HCO3 ABG 27.7 mEq/l (22.0-26.0); Oxygen Saturation ABG 97.8 % (95.0-100.0); Oxyhemoglobin 96.3 % THb (90.0-100.0); PCO2 ABG 41.3 mmHg (35.0-45.0); PO2 ABG 100.1 mmHg (80.0-100.0); PO2 FiO2 Ratio Arterial Blood 3.34 %; Total Hemoglobin 9.5 g/dL (12.0-18.0); pH ABG 7.444 (7.350-7.450)
[2022-06-30 05:19] LABS: Device VENTILATOR; Modified Allen's Test Pass; Site Drawn RIGHT RADIAL
[2022-06-30 05:20] LABS: Arterial Blood Gas PEEP 5 cmH2O; Arterial Blood Gas Tidal Volume 450 ml; Arterial Blood Gas Vent Mode CMV; Arterial Blood Gas Ventilator rate 16 /MIN
[2022-06-30] MEDS: CENTRAL LINE FLUSH 10 ML IV PUSH ×3 (06:10→21:09)
--- NOTE | 2022-06-30 07:57 | WPDINTPN ---
Progress Note: A&P Assessment and Plan (1) Acute respiratory failure with hypoxia: Code(s): J96.01 - Acute respiratory failure with hypoxia Status: Acute Assessment and Plan: Acute respiratory failure likely related to cardiac arrest -patient was intubated ED on 06/11/2022 -patient was extubated on 06/19 after weaning trials for couple of days. After few hours patient became tachypneic, with increased work of breathing and respiratory distress. Patient was given additional dose of Lasix and was placed on BiPAP. On BiPAP patient initially improved later deteriorated and was reintubated on 06/19 Post extubation I did not hear any stridor on exam. Patient was wheezing and grunting but it was not inspiratory stridor. Later I was told by the nursing staff the patient was stridorous prior to re-intubation. Status post Solu-Medrol 06/21 -completed a course of Solu-Medrol. Cuff leak present today on exam. Failed PSV trial within minutes due to high RSBI. Placed on pressure support of 12/5. Continue as tolerated 06/22 -failed PSV weaning trial. Needs pressure support of 12/5 for adequate RSBI. Will continue as tolerated 06/23 -failed 5/8 PSV trial due to high RSBI. Requires 12/8 pressure support for adequate RSBI. Continue as tolerated 06/24 -failed weaning trial within minutes with high RSBI and respiratory distress. I increased pressure support up to 15 that did not help and patient's respiratory rate remained of 30 with visible use of accessory muscles and patient was in respiratory distress. 06/25: Failed pressure support, was started on ASV mode of ventilation, tolerated ASV all day long before he was switched to CMV for tachypnea and tachycardia 06/26: Patient tolerated pressure support ventilation 12/5 for about 2 hours, after that he was put on ASV all day long. Switched to CMV during night as he does not sleep in this start him on propofol so we can get some rest. -blood pressures are much improved this morning 06/27/2022: Patient did tolerate PSV 12/5 for roughly 2-1/2 hours and then was anxious, worked up because they had to clean him after his bowel movement and was placed on CMV mode of ventilation. Patient diuresed very well, chest x-ray with improvement on the right side. -06/29: patient diuresed well on 06/28, dropped his pressures was started on Levophed, will hold diuresis for now -06/30: Patient coughed if his ETT overnight, ETT was full of thick secretions, patient was re-intubated. -continue bronchodilators (Atrovent and ipratropium) S/P Unasyn for a 10 day course. DC vancomycin 06/21 Patient has been failing weaning trials and is close to date 12 on the ventilator. It is likely the patient will need tracheostomy and PEG tube if family desires. I discussed with patient's , she is agreeable to tracheostomy and PEG tube placement. ENT cannot do a tracheostomy until 07/01/2022 (2) Cardiac arrest with ventricular fibrillation: Code(s): I46.9 - Cardiac arrest, cause unspecified; I49.01 - Ventricular fibrillation Status: Acute Assessment and Plan: Patient presented with VFib arrest, ROSC within 15 minutes after EMS arrived and started CPR, (total down time was about 25 minutes.) -patient status post target temperature management, -elevated troponins likely related to cardiac arrest -post target temperature management he is following simple commands with all 4 extremities 06/16/2022: Patient had slow VFib/V-tach with no ICD discharge, requiring defibrillation x1, electrolytes were within normal limits patient was given amiodarone bolus and started on amiodarone infusion,. Cardiology was present during the episode. Cardiology going to evaluate AICD discharge thresholds Cardiology has switched amiodarone infusion to p.o. amiodarone now 06/14/2022 echocardiogram showed LV chamber dimension is severely enlarged, severely reduced LV systolic function with EF of 25-30%, mild
--- NOTE | 2022-06-30 08:57 | WPDGIPROGNO ---
Progress Note: A&P Assessment and Plan (1) Acute respiratory failure with hypoxia: Code(s): J96.01 - Acute respiratory failure with hypoxia Status: Acute Assessment and Plan: prolonged hospitalization in ICU and still intubated plan now is G-tube placement for feeding and tracheostomy family is agreeable (2) Acute on chronic systolic CHF (congestive heart failure): Code(s): I50.23 - Acute on chronic systolic (congestive) heart failure Status: Acute Assessment and Plan: medical treatment, still intubated (3) Cardiac arrest with ventricular fibrillation: Code(s): I46.9 - Cardiac arrest, cause unspecified; I49.01 - Ventricular fibrillation Status: Acute (4) Paroxysmal atrial flutter: Code(s): I48.92 - Unspecified atrial flutter Status: Acute (5) Hypoxic ischemic encephalopathy: Code(s): P91.60 - Hypoxic ischemic encephalopathy [HIE], unspecified Status: Acute Subjective Date/time seen: 06/30/22 08:57 Interval history: intubated, tolerating tube feeding, no major changes Review of Systems Review of Systems: All systems reviewed & are unremarkable except as noted in HPI and below Exam Narrative: General: Intubated and sedated, no acute distress HEENT:? Pupils equal and reactive, sclera is clear Neck:? Supple Respiratory:? Coarse breath sounds bilaterally, decreased at bases, adequate air entry Cardiac:? Paced rhythm Abdomen:? Soft, nontender, nondistended, normoactive bowel sounds, protuberant/obese Extremities:? 1+ edema, palpable pedal pulses Neuro:? Patient is intubated on Precedex, patient is awake, alert, follows commands and nods to questions Skin:? No lesions noted, warm and dry Psych:? Unable to assess at this time Objective Data Vital Signs Vital Signs: Vital Signs - 24 hr 06/29/22 09:56 06/29/22 10:03 06/29/22 10:00 Temperature Pulse Rate 60 60 61 Respiratory Rate 28 H Blood Pressure 110/62 Pulse Oximetry Oxygen Delivery Fraction of Inspired Oxygen 06/29/22 10:00 06/29/22 10:17 06/29/22 10:00 Temperature 98.7 F Pulse Rate 60 60 60 Respiratory Rate 26 H 28 H 26 H Blood Pressure 106/53 L Pulse Oximetry 95 Oxygen Delivery Fraction of Inspired Oxygen 06/29/22 10:29 06/29/22 10:58 06/29/22 12:20 Temperature Pulse Rate 76 67 107 H Respiratory Rate Blood Pressure 107/46 L 118/80 Pulse Oximetry 96 Oxygen Delivery Mechanical Ventilation Fraction of Inspired Oxygen 30 06/29/22 12:00 06/29/22 12:00 06/29/22 11:59 Temperature Pulse Rate 110 H 110 H 112 H Respiratory Rate 26 H 26 H 26 H Blood Pressure Pulse Oximetry Oxygen Delivery Fraction of Inspired Oxygen 06/29/22 11:59 06/29/22 12:35 06/29/22 12:00 Temperature 99.2 F Pulse Rate 112 H 86 108 H Respiratory Rate 26 H 27 H Blood Pressure 131/78 118/80 Pulse Oximetry 93 Oxygen Delivery Fraction of Inspired Oxygen 06/29/22 10:00 06/29/22 13:22 06/29/22 12:00 Temperature Pulse Rate 59 L 80 Respiratory Rate Blood Pressure 119/71 Pulse Oximetry Oxygen Delivery Fraction of Inspired Oxygen 30 06/29/22 12:00 06/29/22 13:46 06/29/22 13:47 Temperature Pulse Rate 87 90 90 Respiratory Rate 30 H Blood Pressure Pulse Oximetry 95 Oxygen Delivery Mechanical Ventilation Fraction of Inspired Oxygen 30 06/29/22 14:01 06/29/22 14:00 06/29/22 14:00 Temperature 99.0 F Pulse Rate 69 81 78 Respiratory Rate 27 H 27 H Blood Pressure 112/64 Pulse Oximetry 98 Oxygen Delivery Fraction of Inspired Oxygen 06/29/22 14:00 06/29/22 14:00 06/29/22 13:45 Temperature Pulse Rate 78 76 Respiratory Rate 27 H 27 H Blood Pressure 123/68 Pulse Oximetry Oxygen Delivery Fraction of Inspired Oxygen 06/29/22 16:00 06/29/22 16:00 06/29/22 16:46 Temperature 99.2 F Pulse Rate 65 74 Respiratory Rate 29 H Blood Pressure 10
[2022-06-30] MEDS: POTASSIUM/PHOSPHORUS/SODIUM 1.5 GM PACKET 1 PACKET PO (08:58)
[2022-06-30] MEDS: TOLNAFTATE 1% POWDER 45 GM BTL 1 APPLIC TOPICAL ×2 (08:58→21:09)
[2022-06-30] MEDS: polyethylene glycoL 3350 17 GM POWD.PACK PO (08:59)
[2022-06-30] MEDS: SACUBITRIL/VALSARTAN 12-13 MG TABLET 1 TAB PO ×2 (08:59→21:09)
[2022-06-30] MEDS: ATORVASTATIN 40 MG TABLET PO (08:59)
[2022-06-30] MEDS: ENOXAPARIN 40 MG/0.4 ML SYRINGE SUB-Q (08:59)
[2022-06-30] MEDS: PANTOPRAZOLE SODIUM IV 40 MG VIAL IV PUSH ×2 (08:59→21:09)
[2022-06-30] MEDS: MINERAL OIL/WHITE PETROLATUM OINTMENT 1 APPLIC EACH EYE ×2 (08:59→21:08)
--- NOTE | 2022-06-30 10:32 | PM.PNCARD ---
Progress Note: A&P Assessment and Plan (1) Cardiac arrest with ventricular fibrillation: Code(s): I46.9 - Cardiac arrest, cause unspecified; I49.01 - Ventricular fibrillation Status: Acute Assessment and Plan: Stable rhythm at this point. Continue amiodarone (2) Presence of combination internal cardiac defibrillator (ICD) and pacemaker: Code(s): Z95.810 - Presence of automatic (implantable) cardiac defibrillator Status: Acute (3) Nonischemic cardiomyopathy: Code(s): I42.8 - Other cardiomyopathies Status: Acute Assessment and Plan: Continue current management (4) Hypokalemia: Code(s): E87.6 - Hypokalemia Status: Acute Assessment and Plan: Agree with potassium supplement (5) Volume overload: Code(s): E87.70 - Fluid overload, unspecified Status: Acute Assessment and Plan: Furosemide 20 mg IV x1. Will schedule at 2:00 p.m. today (6) Paroxysmal atrial flutter: Code(s): I48.92 - Unspecified atrial flutter Status: Acute Assessment and Plan: Appears to be back in atrial flutter at this point. Will repeat EKG. Resume anticoagulation Plan 77-year-old man with longstanding nonischemic cardiomyopathy had out of hospital VF arrest resuscitated. He is neurologically intact but unfortunately is continuing to be dependent on ventilator support. Subjective Date/time seen: 06/30/22 10:32 Interval history: Reason for visit: Cardiac arrest ? Follow-up visit in this 77-year-old man with: ? Severe nonischemic cardiomyopathy with lethal ventricular arrhythmias admitted following out of hospital VT arrest which was terminated by his ICD.? He was admitted to the ICU for evaluation and management following this.? He remains intubated on ventilator support.? ?? Date of service 06/24/2022:? ? Patient is condition essentially unchanged clinically.? Remains intubated on ventilator support in the ICU.? Low dose of the Entresto started yesterday.? Seems to be tolerating that hemodynamically.? Diuresing well in the past 24 hours.? Unfortunately failed weaning trial again this morning.? Spoke to patient and family will likely need a tracheostomy in the near future because of ongoing ventilator dependency 06/25/2022: No acute events overnight. Condition remains unchanged. Remains intubated. Hemodynamics tolerating Entresto and beta marisela. 06/28/2022: No new cardiovascular events patient patient is hemodynamically tolerating low doses of Entresto and beta-marisela. Plans are place Friday for tracheostomy and PEG tube. Patient unfortunately remains unweanable from ventilator support Date of service 06/29/2022: Awake and responsive but still ventilated. Plan for tracheostomy on Friday. No chest pain or shortness of breath Date of service 06/30/2022: He is awake, responsive. No chest pain. Plan for trach tomorrow. Appears to be back in atrial flutter Review of Systems Review of Systems: All systems reviewed & are unremarkable except as noted in HPI and below Constitutional: Constitutional: Denies chills Cardiovascular: Cardiovascular: Denies chest pain, Reports leg edema and Reports dyspnea Respiratory: Respiratory: Reports dyspnea Gastrointestinal: Gastrointestinal: Denies hematochezia Genitourinary: Genitourinary: Denies hematuria Integumentary/Breasts: Skin/Breast: Denies wounds Neurologic: Denies confusion Psychiatric: Psychiatric: Denies confusion Exam Narrative: patient is arousable alert and responsive on the ventilator Const: General: comfortable, no acute distress, in distress mild and respiratory and patient obtunded; No confusion Orientation/consciousness: oriented to person, patient oriented x3, No confusion and patient obtunded HENMT: Mouth: Yes moist mucous membranes Other: endotracheal tube/ intubated mechanical ventilatory support Eyes: Sclera: sclerae normal Other: Pupil
--- NOTE | 2022-06-30 10:38 | ECG_ITS ---
Measurements Intervals [place] Rate: 62 P: PA: 0 QRS: -57 QRSD: 136 T: 134 QT: 372 QTc: 379 Interpretive Statements ATRIAL FLUTTER/TACHYCARDIA LEFT AXIS DEVIATION LEFT BUNDLE BRANCH BLOCK BASELINE ARTIFACT- I, II, III, AVR, AVL, AVF, V2-V6 ABNORMAL ECG COMPARED TO ECG 06/19/2022 15:26:50 ATRIAL FLUTTER/TACHYCARDIA NOW PRESENT Electronically Signed On 06-30-2022 16:59:37 [employer] by Niels Brower D.O.
[2022-06-30] MEDS: FUROSEMIDE INJ 40 MG/4 ML VIAL 20 MG IV PUSH ×2 (11:09→15:21)
[2022-06-30] MEDS: BISACODYL 10 MG SUPPOSITORY RECTAL (11:11)
--- NOTE | 2022-06-30 11:11 | PM.IMPN ---
Subjective Date/time seen: 06/30/22 11:11 still intubated Exam Narrative: General: Intubated and sedated, no acute distress HEENT:? Pupils equal and reactive, sclera is clear Neck:? Supple Respiratory:? Coarse breath sounds bilaterally, decreased at bases, adequate air entry Cardiac:? Paced rhythm Abdomen:? Soft, nontender, nondistended, normoactive bowel sounds, protuberant/obese Extremities:? 1+ edema, palpable pedal pulses Neuro:? Patient is intubated on Precedex, patient is awake, alert, follows commands and nods to questions Skin:? No lesions noted, warm and dry Psych:? Unable to assess at this time Objective Data Vital Signs Vital Signs: Vital Signs - 24 hr 06/29/22 12:20 06/29/22 12:00 06/29/22 12:00 Temperature Pulse Rate 107 H 110 H 110 H Respiratory Rate 26 H 26 H Blood Pressure 118/80 Pulse Oximetry Oxygen Delivery Fraction of Inspired Oxygen 06/29/22 11:59 06/29/22 11:59 06/29/22 12:35 Temperature Pulse Rate 112 H 112 H 86 Respiratory Rate 26 H 26 H Blood Pressure 131/78 Pulse Oximetry Oxygen Delivery Fraction of Inspired Oxygen 06/29/22 12:00 06/29/22 13:22 06/29/22 12:00 Temperature 99.2 F Pulse Rate 108 H 80 Respiratory Rate 27 H Blood Pressure 118/80 119/71 Pulse Oximetry 93 Oxygen Delivery Fraction of Inspired Oxygen 30 06/29/22 12:00 06/29/22 13:46 06/29/22 13:47 Temperature Pulse Rate 87 90 90 Respiratory Rate 30 H Blood Pressure Pulse Oximetry 95 Oxygen Delivery Mechanical Ventilation Fraction of Inspired Oxygen 30 06/29/22 14:01 06/29/22 14:00 06/29/22 14:00 Temperature 99.0 F Pulse Rate 69 81 78 Respiratory Rate 27 H 27 H Blood Pressure 112/64 Pulse Oximetry 98 Oxygen Delivery Fraction of Inspired Oxygen 06/29/22 14:00 06/29/22 14:00 06/29/22 13:45 Temperature Pulse Rate 78 76 Respiratory Rate 27 H 27 H Blood Pressure 123/68 Pulse Oximetry Oxygen Delivery Fraction of Inspired Oxygen 06/29/22 16:00 06/29/22 16:00 06/29/22 16:46 Temperature 99.2 F Pulse Rate 65 74 Respiratory Rate 29 H Blood Pressure 101/60 Pulse Oximetry 99 100 Oxygen Delivery Mechanical Ventilation Fraction of Inspired Oxygen 30 30 06/29/22 16:00 06/29/22 16:00 06/29/22 12:00 Temperature Pulse Rate 65 65 Respiratory Rate 29 H 29 H Blood Pressure Pulse Oximetry 93 Oxygen Delivery Mechanical Ventilation Fraction of Inspired Oxygen 30 06/29/22 16:00 06/29/22 16:00 06/29/22 18:00 Temperature Pulse Rate 67 68 Respiratory Rate 28 H Blood Pressure Pulse Oximetry 100 Oxygen Delivery Mechanical Ventilation Fraction of Inspired Oxygen 30 06/29/22 18:00 06/29/22 18:00 06/29/22 18:09 Temperature Pulse Rate 68 68 108 H Respiratory Rate 28 H 28 H 29 H Blood Pressure Pulse Oximetry Oxygen Delivery Fraction of Inspired Oxygen 06/29/22 18:00 06/29/22 18:00 06/29/22 19:45 Temperature 99.4 F Pulse Rate 65 67 81 Respiratory Rate 27 H 30 H Blood Pressure 117/62 Pulse Oximetry 97 Oxygen Delivery Fraction of Inspired Oxygen 06/29/22 20:27 06/29/22 20:28 06/29/22 19:45 Temperature Pulse Rate 79 79 74 Respiratory Rate 29 H 20 Blood Pressure Pulse Oximetry 97 Oxygen Delivery Mechanical Ventilation Fraction of Inspired Oxygen 30 06/29/22 20:00 06/29/22 20:00 06/29/22 20:00 Temperature 99.6 F Pulse Rate 78 Respiratory Rate 30 H Blood Pressure 137/62 Pulse Oximetry 97 Oxygen Delivery Mechanical Ventilation Fraction of Inspired Oxygen 30 30 06/29/22 20:00 06/29/22 20:45 06/29/22 21:35 Temperature Pulse Rate 72 68 82 Respiratory Rate 22 H 28 H Blood Pressure Pulse Oximetry Oxygen Delivery Fraction of Inspired Oxygen 06/29/22 23:41 06/29/22 22:00 06/29/22 22:00 Temperature 99.7 F H Pulse Rate 60 75 75 Respiratory Rate 32 H Blood Pressu
[2022-06-30] MEDS: INSULIN ASPART (*BKC) 100 UNITS/ML SUB-Q ×2 (12:05→18:22)
[2022-06-30 12:12] LABS: Glucose Point of Care 205 mg/dl (65-105)
--- NOTE | 2022-06-30 15:48 | WPDCN ---
Assessment and Plan Assessment and plan (1) Respiratory failure: Code(s): J96.90 - Respiratory failure, unspecified, unspecified whether with hypoxia or hypercapnia Status: Acute Plan Kenny has respiratory failure, unable to wean ventilator and failed extubation after cardiac arrest and pt and family have agreed to pursue tracheostomy for 07/01/22. Consent in chart, hold tube feeds overnight. Update: Overnight had mucous plugging that required suctioning. Doing better now. HPI Data of Consult Date/Time: 06/30/22 15:48 Requesting Physician: Dusty Jiménez MD Primary Care Provider: Anthony Velasco MD Consult Narrative Reason for consult: Tracheostomy Narrative: Kenny Schneider is a 77 year old male who had cardiac event requiring chest compression and code blue with ROSC after 25 minutes. Was intubated, and has failed extubation trials. Coughed out ETT on 06/30 and was reintubated. Family is in agreement to pursue trach and PEG. ENt consulted for Tracheostomy. Hx of cardiomyopathy with EF 25-30%. DM2. Review of Systems Review of Systems: ROS unobtainable: Yes unobtainable due to endotracheal tube PMFSH Past Medical History Medical History Abscess Atrial flutter Benign essential hypertension Bilateral cataracts BMI 38.0-38.9,adult Bronchitis Cardiac arrest with ventricular fibrillation (2013) CHF (congestive heart failure) Chronic anticoagulation CKD (chronic kidney disease) Cough Elevated serum creatinine Encounter for Medicare annual wellness exam History of colon polyps (Unknown) Hyperlipidemia Hypertension Hypotension Impacted cerumen of left ear Nonischemic cardiomyopathy Echocardiogram in March 2021 showed severe LV systolic dysfunction with an EF of 25 to 30%. Otitis of left ear Paroxysmal atrial flutter Pyogenic granuloma Vitamin D deficiency Surgical History Surgical History History of cholecystectomy History of implantable cardioverter-defibrillator (ICD) insertion History of open reduction and internal fixation (ORIF) procedure Bilateral lower extremity fractures. History of total right knee replacement S/P cataract surgery Family History Family History Father Family history of heart disease in male family member before age 55 Family history of cardiovascular disease Mother Family history of heart disease in male family member before age 55 Family history of cardiovascular disease Sibling Colon cancer Social History Social History Social History: Surrogate decision maker: Delaney Schneider, . Code status: Full code. Smoking status: Never smoker Second hand tobacco smoke exposure: No Alcohol intake: never Substance use: never Substance use type: does not use Lack of Transportation: No Lack of Food: Never True Current Housing: I Have Housing Concerned About Future Housing: No Difficulty Paying Gas/Electric Bills: No Difficulty Paying for Meds: No Currently Unemployed: No Education: Associate Degree Difficulty w/ Childcare or Family Care: No Additional living arrangements comments: The patient lives in [place] with his . Additional occupation/education comments: Retired [employer]. Also worked at [employer]. Gender identity (if verbalized by the patient): Male Spiritual care concerns: No Meds Home Medications and Allergies Home Medications Medication Instructions Recorded Confirmed Type multivitamin 1 tablet PO DAILY 09/27/19 06/12/22 History ascorbic acid (vitamin C) 1,000 mg 1,000 mg PO DAILY 02/08/20 06/12/22 History tablet,extended release rivaroxaban 20 mg tablet (Xarelto) 20 mg PO DAILY 03/14/21 06/12/22 History coQ10 (ubiquinol) 200 mg capsule 200 mg PO
[2022-06-30 18:20] LABS: Glucose Point of Care 202 mg/dl (65-105)
--- NOTE | 2022-06-30 23:00 | PC.NURSE ---
Resumed care of pt at this time. Report received from KERRI Almazan.
[2022-07-01] VITALS (50 sets, daily range): BP systolic 80–134; BP diastolic 55–83; PULSE 60–104; RESP 15–34; TEMP 36.3–37.9; O2SAT 93–100
[2022-07-01] MEDS: PROPOFOL IV EMULSION 100 ML 3.62 MG IV CONT
[2022-07-01] MEDS: dexmedeTOMIDine 400 MCG/100 ML 400 MCG/100 ML BAG 38.29 MCG IV CONT ×2 (00:03→02:34)
--- NOTE | 2022-07-01 00:05 | ECG_ITS ---
Measurements Intervals [place] Rate: 73 P: [place]: 0 QRS: -54 QRSD: 152 T: 91 QT: 338 QTc: 374 Interpretive Statements ATRIAL FLUTTER/TACHYCARDIA ELECTRONIC VENTRICULAR PACEMAKER COMPLEXES, FUSION COMPLEX AND VENTRICULAR PREMATURE COMPLEX LEFT BUNDLE BRANCH BLOCK BASELINE ARTIFACT- AVR, V3, V5 ABNORMAL ECG COMPARED TO ECG 06/30/2022 11:45:32 NO SIGNIFICANT CHANGES Electronically Signed On 07-01-2022 7:54:16 [employer] by Niels Brower D.O.
[2022-07-01 00:43] LABS: Glucose Point of Care 225 mg/dl (65-105)
[2022-07-01] MEDS: INSULIN ASPART (*BKC) 100 UNITS/ML SUB-Q (00:43)
[2022-07-01] MEDS: guaiFENesin 12 HR 600 MG TABCR 1200 MG PO (02:39)
[2022-07-01] MEDS: ACETYLCYSTEINE 20% INHAL SOLN 800 MG/4 ML VIAL 200 MG INHALATION (02:45)
[2022-07-01] MEDS: ALBUTEROL SULFATE NEB 2.5 MG/3 ML INH INHALATION ×4 (02:45→20:24)
[2022-07-01] MEDS: IPRATROPIUM BR 0.02% INH SOLN 0.5 MG/2.5 ML VIAL INHALATION ×4 (02:45→20:24)
[2022-07-01 04:57] LABS: Basophils Percent Auto 0.4 % (0.2-1.2); Eosinophils Absolute Auto 0.3 K/mm3 (0-0.3); Eosinophils Percent Auto 2.3 % (0-4.4); Hematocrit 28.4 % (42.0-52.0); Hemoglobin 8.8 g/dL (14.0-18.0); Immature Granulocyte Percent A 0.9 % (0-0.5); Lymphocytes Absolute Auto 0.56 K/mm3 (0.9-3.2); Lymphocytes Percent Auto 5.2 % (18.3-44.2); Mean Corpuscular Hemoglobin 30.2 pg (26-34); Mean Corpuscular Volume 97.6 fl (80-100); Mean Platelet Volume 10.1 fl (7.4-10.4); Monocytes Absolute Auto 0.7 K/mm3 (0.1-0.6); Monocytes Percent Auto 6.4 % (2.6-8.5); Neutrophils Absolute Auto 9.2 K/mm3 (1.3-6.7); Neutrophils Percent Auto 84.8 % (45.5-73.1); Platelet Count Result 271 k/mm3 (150-375); Red Blood Count 2.91 M/mm3 (4.6-6.20); White Blood Count 10.9 K/mm3 (4.5-10.0)
[2022-07-01 05:06] LABS: Alanine Aminotransferase 25 U/L (6-50); Albumin Level 3.6 g/dL (3.5-5.1); Alkaline Phosphatase 111 U/L (38-126); Anion Gap 7 mmol/L (8-16); Aspartate Amino Transferase 20 U/L (17-59); Bilirubin,Total 0.7 mg/dL (0.2-1.3); Blood Urea Nitrogen 43 mg/dL (9-20); Calcium 8.9 mg/dL (8.4-10.2); Carbon Dioxide 31 mmol/L (22-30); Chloride 106 mmol/L (98-107); Estimated CRCL calculation 66 ml/min; Estimated Glomerular Filt Rate > 60; Glucose 162 mg/dL (65-110); Phosphorus 2.7 mg/dL (2.5-4.5); Potassium 3.5 mmol/L (3.4-5.0); Sodium 144 mmol/L (137-145)
[2022-07-01 05:07] LABS: INR 1.2; Prothrombin Time 15.1 Seconds (11.1-14.7)
[2022-07-01] MEDS: dexmedeTOMIDine 400 MCG/100 ML 400 MCG/100 ML BAG 35.56 MCG IV CONT (05:07)
[2022-07-01 05:08] LABS: Partial Thromboplastin Time 30.9 SECONDS (22.3-36.8)
[2022-07-01] MEDS: CENTRAL LINE FLUSH 10 ML IV PUSH ×3 (05:09→21:22)
[2022-07-01 05:28] LABS: Alveolar/Arterial O2 Gradient 90.5 mmHg; Base Excess ABG 7.3 mEq/l (+/-2.0); Carboxyhemoglobin 0.3 % THb (0-2.0); Device VENTILATOR; Fractional Inspired Oxygen 30 %; HCO3 ABG 31.9 mEq/l (22.0-26.0); Methemoglobin ABG 0.2 %THb (0-1.5); Modified Allen's Test Pass; Oxygen Content ABG 14.6 %vol (16.0-22.0); Oxygen Saturation ABG 94.9 % (95.0-100.0); PCO2 ABG 45.3 mmHg (35.0-45.0); PO2 ABG 70.2 mmHg (80.0-100.0); PO2 FiO2 Ratio Arterial Blood 2.34 %; Reduced Hemoglobin 5.5 %THb (0-5.0); Site Drawn RIGHT RADIAL; pH ABG 7.465 (7.350-7.450)
[2022-07-01 05:29] LABS: Arterial Blood Gas PEEP 5 cmH2O; Arterial Blood Gas Tidal Volume 450 ml; Arterial Blood Gas Vent Mode CMV; Arterial Blood Gas Ventilator rate 16 /MIN
[2022-07-01] MEDS: PROPOFOL IV EMULSION 100 ML 7.23 MG IV CONT (07:35)
[2022-07-01] MEDS: dexmedeTOMIDine 400 MCG/100 ML 400 MCG/100 ML BAG 27.35 MCG IV CONT ×3 (08:07→15:00)
[2022-07-01] MEDS: FUROSEMIDE INJ 40 MG/4 ML VIAL IV PUSH (08:09)
[2022-07-01] MEDS: KCL 40 MEQ/WATER 100 ML 100 ML 25 ML IVPB (08:09)
--- NOTE | 2022-07-01 08:47 | WPDINTPN ---
Progress Note: A&P Assessment and Plan (1) Acute respiratory failure with hypoxia: Code(s): J96.01 - Acute respiratory failure with hypoxia Status: Acute Assessment and Plan: Acute respiratory failure likely related to cardiac arrest -patient was intubated ED on 06/11/2022 -patient was extubated on 06/19 after weaning trials for couple of days. After few hours patient became tachypneic, with increased work of breathing and respiratory distress. Patient was given additional dose of Lasix and was placed on BiPAP. On BiPAP patient initially improved later deteriorated and was reintubated on 06/19 Post extubation I did not hear any stridor on exam. Patient was wheezing and grunting but it was not inspiratory stridor. Later I was told by the nursing staff the patient was stridorous prior to re-intubation. Status post Solu-Medrol 06/21 -completed a course of Solu-Medrol. Cuff leak present today on exam. Failed PSV trial within minutes due to high RSBI. Placed on pressure support of 12/5. Continue as tolerated 06/22 -failed PSV weaning trial. Needs pressure support of 12/5 for adequate RSBI. Will continue as tolerated 06/23 -failed 5/8 PSV trial due to high RSBI. Requires 12/8 pressure support for adequate RSBI. Continue as tolerated 06/24 -failed weaning trial within minutes with high RSBI and respiratory distress. I increased pressure support up to 15 that did not help and patient's respiratory rate remained of 30 with visible use of accessory muscles and patient was in respiratory distress. 06/25: Failed pressure support, was started on ASV mode of ventilation, tolerated ASV all day long before he was switched to CMV for tachypnea and tachycardia 06/26: Patient tolerated pressure support ventilation 12/5 for about 2 hours, after that he was put on ASV all day long. Switched to CMV during night as he does not sleep in this start him on propofol so we can get some rest. -blood pressures are much improved this morning 06/27/2022: Patient did tolerate PSV 12/5 for roughly 2-1/2 hours and then was anxious, worked up because they had to clean him after his bowel movement and was placed on CMV mode of ventilation. Patient diuresed very well, chest x-ray with improvement on the right side. -06/29: patient diuresed well on 06/28, dropped his pressures was started on Levophed, will hold diuresis for now -06/30: Patient coughed if his ETT overnight, ETT was full of thick secretions, patient was re-intubated. -continue bronchodilators (Atrovent and ipratropium) S/P Unasyn for a 10 day course. DC vancomycin 06/21 Patient is scheduled for tracheostomy today Will continue Lasix (2) Cardiac arrest with ventricular fibrillation: Code(s): I46.9 - Cardiac arrest, cause unspecified; I49.01 - Ventricular fibrillation Status: Acute Assessment and Plan: Patient presented with VFib arrest, ROSC within 15 minutes after EMS arrived and started CPR, (total down time was about 25 minutes.) -patient status post target temperature management, -elevated troponins likely related to cardiac arrest -post target temperature management he is following simple commands with all 4 extremities 06/16/2022: Patient had slow VFib/V-tach with no ICD discharge, requiring defibrillation x1, electrolytes were within normal limits patient was given amiodarone bolus and started on amiodarone infusion,. Cardiology was present during the episode. Cardiology going to evaluate AICD discharge thresholds Cardiology has switched amiodarone infusion to p.o. amiodarone now 06/14/2022 echocardiogram showed LV chamber dimension is severely enlarged, severely reduced LV systolic function with EF of 25-30%, mild aortic valve sclerosis, trace mitral valve regurg left atrial chamber dimension is mildly enlarged. (3) Acute kidney injury: Code(s): N17.9 - Acute kidney failure, unspecified Status: Acute Assessment and Plan: Patient with acute kid
--- NOTE | 2022-07-01 10:01 | WPDHPUPDATE1 ---
History and Physical Update Update Date/Time: 07/01/22 10:01 History and Physical has been reviewed, including an updated exam of the patient. There are NO changes in the patient's condition. Risks, benefits, and alternatives have been discussed and questions answered. Patient agrees to proceed with procedure.
--- NOTE | 2022-07-01 10:02 | P.OP_ITS ---
Procedure Note - Detailed Date of Procedure 07/01/22 Pre-op Diagnosis respiratory failure Post-op Diagnosis Same Procedure Performed Tracheostomy Surgeon Justyn Dave MD Anesthesia General Indications respiratory failure Findings 8-0 shiley cuffed trach Description of Procedure The patient was previously consented by family. They were then brought back to the OR and induced with anesthesia through the endotracheal tube. They were then transferred to the OR table. A shoulder roll was placed. Landmarks were palpated and marked. A timeout was performed. An 8-0 DCT cuffed shiley tracheostomy tube was selected and tested. The patient was prepped and drapped in the usual sterile fashion for an tracheotostomy. A horizontal incision was made along the marked line 1-2 cm above the suprasternal notch. Dissection was carried down in the midline through subcutaneous tissues using a hemostat and retraction by vein retractor and then [employer] retractors. The strap muscles were identified and divided using a combination of blunt dissection through the median raphe and electrocautery. The thyroid isthmus was encounted and divided using electrocautery and retracted. The trachea was encountered. A cricoid hook was placed to stabilize and elevate the trachea. The tracheostomy tube was tested on the field and showed no leak. After confirmation with anesthesia and the location and measurement technician ensuring FiO2 was acceptable an #11 blade was used to make a horizontal incision into the trachea. Heavy scissors were used to make parallel vertical cuts laterally through the second ring. The endotracheal tube was pulled. The tracheostomy tube was placed and successfully hooked up the circuit. The airway was stabilized and verified by anesthesia. The cricoid/tracheal hook was carefully removed. The tracheotomy tube was then secured with 0 silk sutures placed at each corner of the trach tube and the underlying skin. A tracheal tie was then placed. This ended this portion of the procedure and care of the patient was returned to anesthesia who recovered him in the ICU. Justyn Dave M.D. Estimated Blood Loss 10 Drains No Packing Yes (surgicel) Pathology None sent Complications No immediate complications Condition Stable Disposition ICU
--- NOTE | 2022-07-01 10:10 | PM.IMPN ---
Progress Note: A&P Assessment and Plan (1) Acute respiratory failure with hypoxia: Code(s): J96.01 - Acute respiratory failure with hypoxia Status: Acute Assessment and Plan: Resp failure - likely from cardiac arest -continue bronchodilators (Atrovent and ipratropium) S/P Unasyn for a 10 day course. DC vancomycin 06/21 Patient has been failing weaning trials and is close to date 12 on the ventilator. It is likely the patient will need tracheostomy and PEG tube if family desires. I discussed with patient's , she is agreeable to tracheostomy and PEG tube placement. ENT cannot do a tracheostomy until 07/01/2022 (2) Cardiac arrest with ventricular fibrillation: Code(s): I46.9 - Cardiac arrest, cause unspecified; I49.01 - Ventricular fibrillation Status: Acute Assessment and Plan: Patient presented with VFib arrest, ROSC within 15 minutes after EMS arrived and started CPR, (total down time was about 25 minutes.) 06/14/2022 echocardiogram showed LV chamber dimension is severely enlarged, severely reduced LV systolic function with EF of 25-30%, mild aortic valve sclerosis, trace mitral valve regurg left atrial chamber dimension is mildly enlarged. (3) Acute kidney injury: Code(s): N17.9 - Acute kidney failure, unspecified Status: Acute Assessment and Plan: cr 1.1 today -continue to monitor renal function, electrolytes and urine output (4) DM type 2 (diabetes mellitus, type 2): Qualifiers: Diabetes mellitus senior care insulin use: without senior care use Diabetes mellitus complication status: without complication Qualified Code(s): E11.9 - Type 2 diabetes mellitus without complications Code(s): E11.9 - Type 2 diabetes mellitus without complications Status: Acute Assessment and Plan: Continue Accu-Cheks and sliding scale insulin. -continue Lantus at current rate (5) Nonischemic cardiomyopathy: Code(s): I42.8 - Other cardiomyopathies Status: Acute Assessment and Plan: nonischemic cardiomyopathy with EF of 20-25% on an echocardiogram done and 06/12/2021 -status post AICD -off IV fluids. -no plans for further diagnostic workup including cardiac catheterization at this time -continue atorvastatin -patient is now on low-dose metoprolol and Entresto (6) Sepsis: Code(s): A41.9 - Sepsis, unspecified organism Status: Acute Assessment and Plan: Blood urine and sputum cultures sent on 06/17 negative till now Subjective Date/time seen: 07/01/22 10:10 intubated Exam Narrative: General: Intubated and sedated, no acute distress HEENT:? Pupils equal and reactive, sclera is clear Neck:? Supple Respiratory:? Coarse breath sounds bilaterally, decreased at bases, adequate air entry Cardiac:? Paced rhythm Abdomen:? Soft, nontender, nondistended, normoactive bowel sounds, protuberant/obese Extremities:? 1+ edema, palpable pedal pulses Neuro:? Patient is intubated on Precedex and low-dose propofol, patient is awake, alert, follows commands and nods to questions Skin:? No lesions noted, warm and dry Psych:? Unable to assess at this time Objective Data Vital Signs Vital Signs: Vital Signs - 24 hr 06/30/22 11:10 06/30/22 11:56 06/30/22 11:56 Temperature Pulse Rate 70 64 64 Respiratory Rate 28 H 22 H 22 H Blood Pressure Pulse Oximetry Oxygen Delivery Fraction of Inspired Oxygen 06/30/22 10:33 06/30/22 13:55 06/30/22 14:00 Temperature Pulse Rate 61 63 63 Respiratory Rate 24 H Blood Pressure Pulse Oximetry 97 95 Oxygen Delivery Mechanical Ventilation Mechanical Ventilation Fraction of Inspired Oxygen 30 30 06/30/22 14:21 06/30/22 12:00 06/30/22 14:00 Temperature 99.7 F H 99.4 F Pulse Rate 65 64 64 Respiratory Rate 23 H 23 H 22 H Blood Pressure 128/70 148/78 H Pulse Oximetry 96 97 Oxygen Delivery Fraction of Inspired Oxygen
--- NOTE | 2022-07-01 10:25 | PC.NURSE ---
Taken to surgery per bed.
[2022-07-01] MEDS: ceFAZolin SODIUM 1 GM VIAL 2 GM IV PUSH (10:32)
--- NOTE | 2022-07-01 10:49 | PCFNICU ---
ICU Rounding Note: Pt current nutrition is NPO for placing tracheostomy. Nutrition recommendation: Resume tube feeding when able. Vital 1.2 @ 45 ml/h. To reassess for protein energy needs related to mechanical ventilation. Last recorded weight is 118.1 kg. Bowel Motility: +2 BMs 07/01/22 Labs Reviewed: Hgb 8.8, Hct 28.4, BUN 43, Glu 162 Meds Noted: Precedex. Propofol @ 10.85 ml/h = 286 kcals. Skin: Skin tear Additional Notes: Disposition planned to LTAC. Following daily in ICU rounds. follow up T/F monitor feeding tolerance, per policy gastric residual, wt and labs.
[2022-07-01] MEDS: HEPARIN SOD/D5W 100 UNITS/ML 25,000 UNITS/250 ML BAG 15 UNITS IV CONT (11:28)
[2022-07-01] MEDS: MINERAL OIL/WHITE PETROLATUM OINTMENT 1 APPLIC EACH EYE ×2 (11:31→21:21)
[2022-07-01] MEDS: PANTOPRAZOLE SODIUM IV 40 MG VIAL IV PUSH ×2 (11:31→21:22)
[2022-07-01] MEDS: TOLNAFTATE 1% POWDER 45 GM BTL 1 APPLIC TOPICAL ×2 (11:32→21:22)
[2022-07-01 11:55] LABS: Basophils Absolute Auto 0.1 K/mm3 (0.0-0.1); Basophils Percent Auto 0.5 % (0.2-1.2); Eosinophils Absolute Auto 0.4 K/mm3 (0-0.3); Eosinophils Percent Auto 3.9 % (0-4.4); Hematocrit 29.9 % (42.0-52.0); Hemoglobin 9.1 g/dL (14.0-18.0); Immature Granulocyte Absolute 0.08 K/mm3 (0.00-0.031); Immature Granulocyte Percent A 0.8 % (0-0.5); Lymphocytes Absolute Auto 0.48 K/mm3 (0.9-3.2); Lymphocytes Percent Auto 4.9 % (18.3-44.2); Mean Corpuscular HGB Conc 30.4 g/dl (32-36); Mean Corpuscular Hemoglobin 30.4 pg (26-34); Mean Platelet Volume 9.7 fl (7.4-10.4); Monocytes Absolute Auto 0.6 K/mm3 (0.1-0.6); Monocytes Percent Auto 6.1 % (2.6-8.5); Neutrophils Absolute Auto 8.2 K/mm3 (1.3-6.7); Neutrophils Percent Auto 83.8 % (45.5-73.1); Platelet Count Result 262 k/mm3 (150-375); Red Blood Count 2.99 M/mm3 (4.6-6.20); Red Cell Distribution Width 13.2 % (11.5-14.5); White Blood Count 9.7 K/mm3 (4.5-10.0)
[2022-07-01 12:07] LABS: Glucose Point of Care 183 mg/dl (65-105)
[2022-07-01 12:07] LABS: INR 1.2; Prothrombin Time 14.8 Seconds (11.1-14.7)
[2022-07-01 12:08] LABS: Partial Thromboplastin Time 31.8 SECONDS (22.3-36.8)
--- NOTE | 2022-07-01 12:46 | WPDGIPROGNO ---
Progress Note: A&P Assessment and Plan (1) Acute respiratory failure with hypoxia: Code(s): J96.01 - Acute respiratory failure with hypoxia Status: Acute Assessment and Plan: prolonged icu stay, today had tracheostomy egd with g-tube placement tomorrow, heparin gtt will be held early in the morning (2) Cardiac arrest with ventricular fibrillation: Code(s): I46.9 - Cardiac arrest, cause unspecified; I49.01 - Ventricular fibrillation Status: Acute (3) Acute on chronic systolic CHF (congestive heart failure): Code(s): I50.23 - Acute on chronic systolic (congestive) heart failure Status: Acute (4) DVT, lower extremity: Code(s): I82.409 - Acute embolism and thrombosis of unspecified deep veins of unspecified lower extremity Status: Acute Assessment and Plan: on heparin gtt now Subjective Date/time seen: 07/01/22 12:46 Interval history: today had tracheostomy placement, also he has dvt on heparin gtt Review of Systems Review of Systems: All systems reviewed & are unremarkable except as noted in HPI and below Exam Narrative: General: Intubated and sedated, no acute distress HEENT:? Pupils equal and reactive, sclera is clear Neck:? Supple, trach in place Respiratory:? Coarse breath sounds bilaterally, decreased at bases, adequate air entry Cardiac:? Paced rhythm Abdomen:? Soft, nontender, nondistended, normoactive bowel sounds, protuberant/obese Extremities:? 1+ edema, palpable pedal pulses Neuro:? Patient is intubated Skin:? No lesions noted, warm and dry Psych:? Unable to assess at this time Objective Data Vital Signs Vital Signs: Vital Signs - 24 hr 06/30/22 13:55 06/30/22 14:00 06/30/22 14:21 Temperature Pulse Rate 63 63 65 Respiratory Rate 24 H 23 H Blood Pressure Pulse Oximetry 95 Oxygen Delivery Mechanical Ventilation Fraction of Inspired Oxygen 30 06/30/22 14:00 06/30/22 14:00 06/30/22 15:19 Temperature 99.4 F Pulse Rate 64 74 64 Respiratory Rate 22 H 24 H 21 H Blood Pressure 148/78 H Pulse Oximetry 97 Oxygen Delivery Fraction of Inspired Oxygen 06/30/22 15:19 06/30/22 14:00 06/30/22 16:00 Temperature 99.4 F Pulse Rate 64 63 65 Respiratory Rate 21 H 25 H Blood Pressure 120/67 Pulse Oximetry 100 Oxygen Delivery Fraction of Inspired Oxygen 06/30/22 16:00 06/30/22 16:34 06/30/22 18:00 Temperature 99.7 F H Pulse Rate 63 65 Respiratory Rate 23 H Blood Pressure 124/71 Pulse Oximetry 100 100 Oxygen Delivery Mechanical Ventilation Fraction of Inspired Oxygen 30 30 06/30/22 18:15 06/30/22 18:15 06/30/22 16:00 Temperature Pulse Rate 64 64 Respiratory Rate 23 H 23 H Blood Pressure Pulse Oximetry 100 Oxygen Delivery Mechanical Ventilation Fraction of Inspired Oxygen 30 06/30/22 16:00 06/30/22 18:00 06/30/22 20:00 Temperature 99.4 F Pulse Rate 64 64 66 Respiratory Rate 24 H Blood Pressure 129/78 Pulse Oximetry 97 Oxygen Delivery Fraction of Inspired Oxygen 06/30/22 20:00 06/30/22 21:06 06/30/22 21:06 Temperature Pulse Rate 66 67 67 Respiratory Rate 28 H 28 H Blood Pressure Pulse Oximetry Oxygen Delivery Fraction of Inspired Oxygen 06/30/22 21:16 06/30/22 21:16 06/30/22 20:00 Temperature Pulse Rate 66 65 Respiratory Rate 24 H Blood Pressure Pulse Oximetry 100 97 Oxygen Delivery Mechanical Ventilation Mechanical Ventilation Fraction of Inspired Oxygen 30 30 06/30/22 20:00 06/30/22 22:00 06/30/22 22:00 Temperature 99.3 F Pulse Rate 64 64 Respiratory Rate 24 H Blood Pressure 102/57 L Pulse Oximetry 100 Oxygen Delivery Fraction of Inspired Oxygen 30 06/30/22 22:56 06/30/22 23:18 06/30/22 23:47 Temperature Pulse Rate 64 68 104 H Respiratory Rate 28 H 34 H Blood Pressure Pulse Oximetry 98 Oxygen Delivery Mechanical Ventilation Fraction of Inspired
[2022-07-01] MEDS: PROPOFOL IV EMULSION 100 ML 10.85 MG IV CONT ×2 (16:39→23:34)
[2022-07-01 17:58] LABS: Partial Thromboplastin Time 80.2 SECONDS (22.3-36.8)
[2022-07-01 18:16] LABS: Glucose Point of Care 164 mg/dl (65-105)
[2022-07-01] MEDS: dexmedeTOMIDine 400 MCG/100 ML 400 MCG/100 ML BAG 24.62 MCG IV CONT ×2 (18:47→23:00)
[2022-07-02] VITALS (42 sets, daily range): BP systolic 63–127; BP diastolic 43–78; PULSE 61–96; RESP 16–33; TEMP 36.6–37.6; O2SAT 99–100; BMI 40.5
[2022-07-02 00:47] LABS: Glucose Point of Care 147 mg/dl (65-105)
--- NOTE | 2022-07-02 01:15 | PC.NURSE ---
0000 07/02 Heparin gtt on hold as ordered
[2022-07-02] MEDS: IPRATROPIUM BR 0.02% INH SOLN 0.5 MG/2.5 ML VIAL INHALATION ×4 (02:28→21:10)
[2022-07-02] MEDS: ALBUTEROL SULFATE NEB 2.5 MG/3 ML INH INHALATION ×4 (02:28→21:10)
[2022-07-02 03:48] LABS: Basophils Percent Auto 0.3 % (0.2-1.2); Eosinophils Absolute Auto 0.4 K/mm3 (0-0.3); Eosinophils Percent Auto 3.5 % (0-4.4); Hematocrit 31.4 % (42.0-52.0); Hemoglobin 9.7 g/dL (14.0-18.0); Immature Granulocyte Absolute 0.08 K/mm3 (0.00-0.031); Immature Granulocyte Percent A 0.7 % (0-0.5); Lymphocytes Absolute Auto 0.44 K/mm3 (0.9-3.2); Lymphocytes Percent Auto 3.8 % (18.3-44.2); Mean Corpuscular HGB Conc 30.9 g/dl (32-36); Mean Corpuscular Hemoglobin 30.5 pg (26-34); Mean Corpuscular Volume 98.7 fl (80-100); Monocytes Absolute Auto 0.7 K/mm3 (0.1-0.6); Monocytes Percent Auto 5.9 % (2.6-8.5); Neutrophils Absolute Auto 10.1 K/mm3 (1.3-6.7); Neutrophils Percent Auto 85.8 % (45.5-73.1); Platelet Count Result 299 k/mm3 (150-375); Red Blood Count 3.18 M/mm3 (4.6-6.20); Red Cell Distribution Width 13.2 % (11.5-14.5); White Blood Count 11.7 K/mm3 (4.5-10.0)
[2022-07-02 04:00] LABS: Alanine Aminotransferase 25 U/L (6-50); Albumin Level 3.6 g/dL (3.5-5.1); Alkaline Phosphatase 123 U/L (38-126); Anion Gap 9 mmol/L (8-16); Aspartate Amino Transferase 24 U/L (17-59); Bilirubin,Total 0.8 mg/dL (0.2-1.3); Blood Urea Nitrogen 42 mg/dL (9-20); Calcium 8.9 mg/dL (8.4-10.2); Carbon Dioxide 29 mmol/L (22-30); Chloride 105 mmol/L (98-107); Estimated CRCL calculation 60 ml/min; Estimated Glomerular Filt Rate > 60; Glucose 170 mg/dL (65-110); Magnesium 1.9 mg/dL (1.6-2.3); Potassium 3.8 mmol/L (3.4-5.0); Sodium 143 mmol/L (137-145)
[2022-07-02] MEDS: dexmedeTOMIDine 400 MCG/100 ML 400 MCG/100 ML BAG 19.15 MCG IV CONT ×2 (04:10→09:52)
[2022-07-02 05:36] LABS: Alveolar/Arterial O2 Gradient 88.3 mmHg; Base Excess ABG 6.8 mEq/l (+/-2.0); Carboxyhemoglobin 0.4 % THb (0-2.0); Fractional Inspired Oxygen 30 %; HCO3 ABG 31.9 mEq/l (22.0-26.0); Methemoglobin ABG 0.2 %THb (0-1.5); Oxygen Content ABG 19.9 %vol (16.0-22.0); Oxygen Saturation ABG 94.8 % (95.0-100.0); Oxyhemoglobin 93.9 % THb (90.0-100.0); PCO2 ABG 46.7 mmHg (35.0-45.0); PO2 ABG 70.7 mmHg (80.0-100.0); PO2 FiO2 Ratio Arterial Blood 2.36 %; Reduced Hemoglobin 5.5 %THb (0-5.0); Total Hemoglobin 15.1 g/dL (12.0-18.0); pH ABG 7.452 (7.350-7.450)
[2022-07-02 05:38] LABS: Device VENTILATOR; Modified Allen's Test Pass; Site Drawn RIGHT RADIAL
[2022-07-02 05:39] LABS: Arterial Blood Gas PEEP 5 cmH2O; Arterial Blood Gas Tidal Volume 450 ml; Arterial Blood Gas Vent Mode CMV; Arterial Blood Gas Ventilator rate 16 /MIN
[2022-07-02] MEDS: CENTRAL LINE FLUSH 10 ML IV PUSH ×2 (06:05→21:02)
[2022-07-02 07:20] LABS: Triglycerides 119 mg/dL (<150)
--- NOTE | 2022-07-02 08:36 | WPDINTPN ---
Progress Note: A&P Assessment and Plan (1) Acute respiratory failure with hypoxia: Code(s): J96.01 - Acute respiratory failure with hypoxia Status: Acute Assessment and Plan: Acute respiratory failure likely related to cardiac arrest -patient was intubated ED on 06/11/2022 -patient was extubated on 06/19 after weaning trials for couple of days. After few hours patient became tachypneic, with increased work of breathing and respiratory distress. Patient was given additional dose of Lasix and was placed on BiPAP. On BiPAP patient initially improved later deteriorated and was reintubated on 06/19 Post extubation I did not hear any stridor on exam. Patient was wheezing and grunting but it was not inspiratory stridor. Later I was told by the nursing staff the patient was stridorous prior to re-intubation. Status post Solu-Medrol 06/21 -completed a course of Solu-Medrol. Cuff leak present today on exam. Failed PSV trial within minutes due to high RSBI. Placed on pressure support of 12/5. Continue as tolerated 06/22 -failed PSV weaning trial. Needs pressure support of 12/5 for adequate RSBI. Will continue as tolerated 06/23 -failed 5/8 PSV trial due to high RSBI. Requires 12/8 pressure support for adequate RSBI. Continue as tolerated 06/24 -failed weaning trial within minutes with high RSBI and respiratory distress. I increased pressure support up to 15 that did not help and patient's respiratory rate remained of 30 with visible use of accessory muscles and patient was in respiratory distress. 06/25: Failed pressure support, was started on ASV mode of ventilation, tolerated ASV all day long before he was switched to CMV for tachypnea and tachycardia 06/26: Patient tolerated pressure support ventilation 12/5 for about 2 hours, after that he was put on ASV all day long. Switched to CMV during night as he does not sleep in this start him on propofol so we can get some rest. -blood pressures are much improved this morning 06/27/2022: Patient did tolerate PSV 12/5 for roughly 2-1/2 hours and then was anxious, worked up because they had to clean him after his bowel movement and was placed on CMV mode of ventilation. Patient diuresed very well, chest x-ray with improvement on the right side. -06/29: patient diuresed well on 06/28, dropped his pressures was started on Levophed, will hold diuresis for now -06/30: Patient coughed if his ETT overnight, ETT was full of thick secretions, patient was re-intubated. 07/01-tracheostomy done Will try pressure support ventilation after PEG tube placement today continue bronchodilators (Atrovent and ipratropium) S/P Unasyn for a 10 day course. DC vancomycin 06/21 Will continue Lasix (2) Cardiac arrest with ventricular fibrillation: Code(s): I46.9 - Cardiac arrest, cause unspecified; I49.01 - Ventricular fibrillation Status: Acute Assessment and Plan: Patient presented with VFib arrest, ROSC within 15 minutes after EMS arrived and started CPR, (total down time was about 25 minutes.) -patient status post target temperature management, -elevated troponins likely related to cardiac arrest -post target temperature management he is following simple commands with all 4 extremities 06/16/2022: Patient had slow VFib/V-tach with no ICD discharge, requiring defibrillation x1, electrolytes were within normal limits patient was given amiodarone bolus and started on amiodarone infusion,. Cardiology was present during the episode. Cardiology going to evaluate AICD discharge thresholds Cardiology has switched amiodarone infusion to p.o. amiodarone now 06/14/2022 echocardiogram showed LV chamber dimension is severely enlarged, severely reduced LV systolic function with EF of 25-30%, mild aortic valve sclerosis, trace mitral valve regurg left atrial chamber dimension is mildly enlarged. (3) Acute kidney injury: Code(s): N17.9 - Acute kidney failure, unspecified Status: Acute
[2022-07-02 09:12] LABS: Glucose Point of Care 150 mg/dl (65-105)
--- NOTE | 2022-07-02 09:15 | PM.PNCARD ---
Progress Note: A&P Assessment and Plan (1) Cardiac arrest with ventricular fibrillation: Code(s): I46.9 - Cardiac arrest, cause unspecified; I49.01 - Ventricular fibrillation Status: Acute Assessment and Plan: Stable rhythm at this point. Continue amiodarone (2) Presence of combination internal cardiac defibrillator (ICD) and pacemaker: Code(s): Z95.810 - Presence of automatic (implantable) cardiac defibrillator Status: Acute (3) Nonischemic cardiomyopathy: Code(s): I42.8 - Other cardiomyopathies Status: Acute Assessment and Plan: Continue current management (4) Paroxysmal atrial flutter: Code(s): I48.92 - Unspecified atrial flutter Status: Acute Assessment and Plan: Appears to be back in atrial flutter at this point, however, is rate-controlled. On Heparin drip, transition to Eliquis after PEG tube placement. Increase Metoprolol for additional rate control as tolerated. (5) DVT, lower extremity: Code(s): I82.409 - Acute embolism and thrombosis of unspecified deep veins of unspecified lower extremity Status: Acute Assessment and Plan: Found on venous duplex 07/01. DVT in the calves in the right posterior tibial vein, left posterior tibial, left peroneal, and left soleus veins. On Heparin drip, transitioning to Eliquis after PEG is placed. Time Spent With Patient Time with patient: 15 - 25 minutes Subjective Date/time seen: 07/02/22 09:15 Interval history: Reason for visit: Cardiac arrest ?Follow-up visit in this 77-year-old man with: ? Severe nonischemic cardiomyopathy with lethal ventricular arrhythmias admitted following out of hospital VT arrest which was terminated by his ICD.? He was admitted to the ICU for evaluation and management following this.? ?? Date of service 06/24/2022:? ? Patient is condition essentially unchanged clinically.? Remains intubated on ventilator support in the ICU.? Low dose of the Entresto started yesterday.? Seems to be tolerating that hemodynamically.? Diuresing well in the past 24 hours.? Unfortunately failed weaning trial again this morning.? Spoke to patient and family will likely need a tracheostomy in the near future because of ongoing ventilator dependency 06/25/2022: No acute events overnight. Condition remains unchanged. Remains intubated. Hemodynamics tolerating Entresto and beta marisela. ? 06/28/2022:? ? No new cardiovascular events patient patient is hemodynamically tolerating low doses of Entresto and beta-marisela.? Plans are place Friday for tracheostomy and PEG tube.? Patient unfortunately remains? unweanable from ventilator support Date of service 06/29/2022:? Awake and responsive but still ventilated.? Plan for tracheostomy on Friday.? No chest pain or shortness of breath Date of service 06/30/2022:? He is awake, responsive.? No chest pain.? Plan for trach tomorrow.? Appears to be back in atrial flutter Date of service 07/02/2022: EKG showing rate-controlled flutter. On heparin drip for DVT as well. Patient does follow commands now. Getting PEG today. Review of Systems Review of Systems: All systems reviewed & are unremarkable except as noted in HPI and below Constitutional: Constitutional: Denies chills Cardiovascular: Cardiovascular: Denies chest pain, Reports leg edema and Reports dyspnea Respiratory: Respiratory: Reports dyspnea Neurologic: Denies confusion Psychiatric: Psychiatric: Denies confusion Exam Narrative: patient is arousable alert and responsive on the ventilator via trach Const: General: comfortable and no acute distress HENMT: Mouth: Yes moist mucous membranes Other: endotracheal tube/ intubated mechanical ventilatory support Eyes: Sclera: sclerae normal Other: Pupils equal and round Neck: Neck: supple Other: unable to assess JVD given his obesity Resp: Effort & Inspection: normal respiratory effort Auscultation: clear to auscultation
[2022-07-02] MEDS: PROPOFOL IV EMULSION 100 ML 10.85 MG IV CONT ×2 (09:52→15:25)
[2022-07-02] MEDS: KCL 20 MEQ/SW 100 ML 100 ML 50 MEQ IVPB (09:53)
[2022-07-02] MEDS: TOLNAFTATE 1% POWDER 45 GM BTL 1 APPLIC TOPICAL ×2 (09:54→21:02)
[2022-07-02] MEDS: PANTOPRAZOLE SODIUM IV 40 MG VIAL IV PUSH ×2 (09:54→21:01)
--- NOTE | 2022-07-02 10:43 | PCNFU ---
Nutrition Follow-Up Complete: decreased nutrient needs related to NPO status as evidence by diet order goal: Meet estimated energy needs through TF patient is progressing towards goal. We will continue current goal. Pt current nutrition is NPO. Nutrition recommendation: goal rate 65 ml/hr. Last recorded weight is 117.4 kg. Bowel Motility:+Bm reported 07/02 Labs Reviewed:Glu 170, BUN 42, Hct 31.4,Hgb 9.7 Meds Noted:Precedex, Propofol 10/85 ml/hr, Protonix, Heparin. Skin: Skin Tear noted, wound consult Additional Notes: Patient current with Trach. PEG today.Propofol at 10/86 ml/bz=721 kcals. Plans for propofol to be discontinued after PEG placement. Recommend goal rate tube feedings of Vital AF 1.2 at 65 ml/hr providing 1716 kcals/107 gms protein/1160 ml water. Flush 30 ml q 4 hours. Agree with diet orders. Discharge plans LTAC. follow up T/F monitor feeding tolerance, per policy gastric residual, wt and labs
[2022-07-02] MEDS: fentaNYL CITRATE INJ (*CRX) 100 MCG/2 ML VIAL 25 MCG IV PUSH ×2 (10:55→11:10)
--- NOTE | 2022-07-02 11:39 | WPDANESPN ---
Anes - Prog Note Post-Op Date/Time: 07/02/22 11:39 Vital Signs: Last Vital Signs Temp 37.3 C 07/02/22 10:40 Pulse 66 07/02/22 11:20 Resp 21 H 07/02/22 11:20 BP 89/46 L 07/02/22 11:20 Pulse Ox 100 07/02/22 11:20 O2 Del Method Mechanical Ventilation 07/02/22 11:20 O2 Flow Rate 4 06/19/22 16:00 FiO2 30 07/02/22 11:20 Pain Score (VAS): 0 I/O: Intake & Output 07/01/22 07/02/22 07/02/22 23:59 07:59 15:59 Intake Total 400 100 200 Output Total 900 1000 Balance -500 -900 200 Laboratory Tests 07/02/22 03:41 07/02/22 03:41 07/01/22 07/01/22 07/01/22 11:49 11:49 12:02 WBC 9.7 RBC 2.99 L Hgb 9.1 L Hct 29.9 L MCV 100.0 MCH 30.4 MCHC 30.4 L RDW 13.2 Plt Count 262 MPV 9.7 Immature Gran % (Auto) 0.8 H Neut % (Auto) 83.8 H Lymph % (Auto) 4.9 L Canadian % (Auto) 6.1 Eos % (Auto) 3.9 Baso % (Auto) 0.5 Lymph # (Auto) 0.48 L Canadian # (Auto) 0.6 Eos # (Auto) 0.4 H Baso # (Auto) 0.1 Abs Immat Gran (auto) 0.08 H Absolute Neuts (auto) 8.2 H Absolute Nucleated RBC 0.0 Nucleated RBC % 0.0 PT 14.8 H INR 1.2 APTT 31.8 Puncture Site ABG pH ABG pCO2 ABG pO2 ABG PO2/FiO2 Ratio ABG HCO3 ABG O2 Saturation ABG O2 Content ABG Base Excess A-a Gradient Oxyhemoglobin Carboxyhemoglobin Methemoglobin Reduced Hemoglobin Total Hemoglobin O2 Delivery Device O2 Liters/Min Minute Volume Vent Rate Vent Mode FiO2 Tidal Volume PEEP Peak Inspir Pressure Pressure Support Sodium Potassium Chloride Carbon Dioxide Anion Gap BUN Creatinine Estim Creat Clear Calc Estimated GFR Glucose POC Capillary Glucose 183 H Calcium Magnesium Total Bilirubin AST ALT Alkaline Phosphatase Total Protein Albumin Triglycerides 07/01/22 07/01/22 07/01/22 17:33 18:11 23:41 WBC RBC Hgb Hct MCV MCH MCHC RDW Plt Count MPV Immature Gran % (Auto) Neut % (Auto) Lymph % (Auto) Canadian % (Auto) Eos % (Auto) Baso % (Auto) Lymph # (Auto) Canadian # (Auto) Eos # (Auto) Baso # (Auto) Abs Immat Gran (auto) Absolute Neuts (auto) Absolute Nucleated RBC Nucleated RBC % PT INR APTT 80.2 H 83.0 H Puncture Site ABG pH ABG pCO2 ABG pO2 ABG PO2/FiO2 Ratio ABG HCO3 ABG O2 Saturation ABG O2 Content ABG Base Excess A-a Gradient Oxyhemoglobin Carboxyhemoglobin Methemoglobin Reduced Hemoglobin Total Hemoglobin O2 Delivery Device O2 Liters/Min Minute Volume Vent Rate Vent Mode FiO2 Tidal Volume PEEP Peak Inspir Pressure Pressure Support Sodium Potassium Chloride Carbon Dioxide Anion Gap BUN Creatinine Estim Creat Clear Calc Estimated GFR Glucose POC Capillary Glucose 164 H Calcium Magnesium Total Bilirubin AST ALT Alkaline Phosphatase Total Protein Albumin Triglycerides 07/02/22 07/02/22 07/02/22 00:45 03:41 03:41 WBC 11.7 H RBC 3.18 L Hgb 9.7 L Hct 31.4 L MCV 98.7 MCH 30.5 MCHC 30.9 L RDW 13.2 Plt Count 299 MPV 10.0 Immature Gran % (Auto) 0.7 H Neut % (Auto) 85.8 H Lymph % (Auto) 3.8 L Canadian % (Auto) 5.9 Eos % (Auto) 3.5 Baso % (Auto) 0.3 Lymph # (Auto) 0.44 L Canadian # (Auto) 0.7 H Eos # (Auto) 0.4 H Baso # (Auto) 0.0 Abs Immat Gran (auto) 0.08 H Absolute Neuts (auto) 10.1 H Absolute Nucleated RBC 0.0 Nucleated RBC % 0.0 PT INR APTT Puncture Site ABG pH ABG pCO2 ABG pO2 ABG PO2/FiO2 Ratio ABG HCO3 ABG O2 Saturation ABG O2 Content ABG Base Excess A-a Gradient Oxyhemoglobin Carboxyhemoglobin Methemoglobin Reduced Hemoglob
[2022-07-02 12:13] LABS: Glucose Point of Care 163 mg/dl (65-105)
--- NOTE | 2022-07-02 12:17 | SUR.OPER ---
3ml Lidocaine 1% given by Dr. Brown for PEG placement.
[2022-07-02] MEDS: FUROSEMIDE INJ 40 MG/4 ML VIAL IV PUSH (12:33)
--- NOTE | 2022-07-02 13:03 | PM.IMPN ---
Progress Note: A&P Assessment and Plan (1) Acute respiratory failure with hypoxia: Code(s): J96.01 - Acute respiratory failure with hypoxia Status: Acute Assessment and Plan: Resp failure - likely from cardiac arest -continue bronchodilators (Atrovent and ipratropium) S/P Unasyn for a 10 day course. DC vancomycin 06/21 Patient has been failing weaning trials and is close to date 12 on the ventilator. It is likely the patient will need tracheostomy and PEG tube if family desires. I discussed with patient's , she is agreeable to tracheostomy and PEG tube placement. ENT cannot do a tracheostomy until 07/01/2022 (2) Cardiac arrest with ventricular fibrillation: Code(s): I46.9 - Cardiac arrest, cause unspecified; I49.01 - Ventricular fibrillation Status: Acute Assessment and Plan: Patient presented with VFib arrest, ROSC within 15 minutes after EMS arrived and started CPR, (total down time was about 25 minutes.) 06/14/2022 echocardiogram showed LV chamber dimension is severely enlarged, severely reduced LV systolic function with EF of 25-30%, mild aortic valve sclerosis, trace mitral valve regurg left atrial chamber dimension is mildly enlarged. (3) Acute kidney injury: Code(s): N17.9 - Acute kidney failure, unspecified Status: Acute Assessment and Plan: cr 1.1 today -continue to monitor renal function, electrolytes and urine output (4) DM type 2 (diabetes mellitus, type 2): Qualifiers: Diabetes mellitus skilled nursing insulin use: without skilled nursing use Diabetes mellitus complication status: without complication Qualified Code(s): E11.9 - Type 2 diabetes mellitus without complications Code(s): E11.9 - Type 2 diabetes mellitus without complications Status: Acute Assessment and Plan: Continue Accu-Cheks and sliding scale insulin. -continue Lantus at current rate (5) Nonischemic cardiomyopathy: Code(s): I42.8 - Other cardiomyopathies Status: Acute Assessment and Plan: nonischemic cardiomyopathy with EF of 20-25% on an echocardiogram done and 06/12/2021 -status post AICD -off IV fluids. -no plans for further diagnostic workup including cardiac catheterization at this time -continue atorvastatin -patient is now on low-dose metoprolol and Entresto (6) Sepsis: Code(s): A41.9 - Sepsis, unspecified organism Status: Acute Assessment and Plan: Blood urine and sputum cultures sent on 06/17 negative till now Subjective Date/time seen: 07/02/22 13:03 Status post trach PEG tube planned for today. Exam Narrative: General: Intubated and sedated, no acute distress HEENT:? Pupils equal and reactive, sclera is clear, trach in place Neck:? Supple Respiratory:? Coarse breath sounds bilaterally, decreased at bases, adequate air entry Cardiac:? Paced rhythm Abdomen:? Soft, nontender, nondistended, normoactive bowel sounds, protuberant/obese Extremities:? 1+ edema left more than right, palpable pedal pulses Neuro:? Patient is intubated on Precedex and low-dose propofol, patient is awake, alert, follows commands and nods to questions Skin:? No lesions noted, warm and dry Psych:? Unable to assess at this time Objective Data Vital Signs Vital Signs: Vital Signs - 24 hr 07/01/22 14:00 07/01/22 14:00 07/01/22 16:00 Temperature 97.3 F L Pulse Rate 65 65 65 Respiratory Rate 18 Blood Pressure 94/56 L Pulse Oximetry 98 Oxygen Delivery Fraction of Inspired Oxygen 07/01/22 16:00 07/01/22 16:00 07/01/22 14:55 Temperature Pulse Rate 65 64 Respiratory Rate 17 26 H Blood Pressure Pulse Oximetry 100 Oxygen Delivery Mechanical Ventilation Fraction of Inspired Oxygen 30 30 07/01/22 15:01 07/01/22 15:03 07/01/22 15:00 Temperature Pulse Rate 65 60 64 Respiratory Rate 17 20 Blood Pressure Pulse Oximetry 100 Oxygen Delivery Mechanical Ventilati
[2022-07-02] MEDS: ETOMIDATE 20 MG/10 ML AMPUL IV PUSH (15:14)
[2022-07-02] MEDS: ETOMIDATE 40 MG/20 ML VIAL 20 MG IV PUSH (15:17)
--- NOTE | 2022-07-02 15:44 | P.PNCROSS_ITS ---
Event Note Event Note Event Note: Called by nurse that patient was having difficulty breathing and was not getting his volumes on the ventilator. Patient had tracheostomy done yesterday and this morning when I evaluated the patient he had adequate tidal volumes with equal breath sounds and no respiratory distress. When I arrived at bedside patient was in respiratory distress and struggling to breathe. Ventilator was alarming with low tidal volume. Patient had significant amount of subcu air and his neck with his neck swollen up. Trach was in place with sutures ties. I grabbed the disposable bronchoscope and inserted it through the tracheostomy tube. I was not able to see the airway and I could only see tissue blocking the trach tube. I was able to see some lumen when I change the angle of the trach but it did not appeared to be trachea. Exam was difficult as patient has significant amount of secretions and the disposable bronchoscope has a poor quality with no suction attached at that time. ENT was called and was not immediately available although Dr. Dave was on his way. I decided to intubate the patient. Quickly we set up intubation including drugs, glide scope and ETT. I could not find stylet in either of the ET tube bags.. Patient was ventilated with Ambu bagged through his nose and mouth. One set up was secured. Trach was removed and I try to intubate the patient. Again significant amount of secretions were seen in his oropharynx which were suctioned out. I was able to see cords. I was unable to advance ET tube due to resistance past the cords. Patient was given 20 mg etomidate for this procedure. Patient was also coughing. I intentionally did not paralyzed patient considering the situation of possible airway obstruction. ET tube was removed patient was given another 20 mg of etomidate. Patient was suction again. His saturation did drop temporarily. I also requested charge nurse to call anesthesia for back. On 2nd attempt I I again met resistance while inserting ETT. This time I rotated the ET tube by 90? and was able to pass the ET tube down into the trachea. Patient was ventilated, ETT was confirmed with CO2 detector. Chest x-ray was done and ET tube was in acceptable position. I again then used bronchoscope to advance bronchoscopy t hrough ETT to visualized angelita I have updated patient's daughter and explained her the events. I also have discussed with Dr. Dave who is going to take him to OR to examine and replace the tracheostomy. Total Critical Care Time - 60 minutes Due to a high probability of clinically significant, life threatening deterioration, the patient required my highest level of preparedness to interve ne emergently and I personally spent this critical care time directly and personally managing the patient. This critical care time included obtaining a history; examining the patient; pulse oximetry; ordering and review of studies; arranging urgent treatment with development of a management plan; evaluation of patient's response to treatment; frequent reassessment; and discussions with other providers. It was exclusive of separately billable procedures and treating other patients and teaching time. Please see Assessment and Plan section and the rest of the note for further information on patient assessment and treatment
--- NOTE | 2022-07-02 15:48 | PCRCNOTE ---
At 15:15 RT called to bedside due to pt not giving tidal volumes on ventilator, trach at the time in place was not ventilating pt, due to this Dr. Koehler had to reintubate pt with a 7.5 ET to maintain airway.
[2022-07-02] MEDS: dexmedeTOMIDine 400 MCG/100 ML 400 MCG/100 ML BAG 13.68 MCG IV CONT (15:49)
--- NOTE | 2022-07-02 15:51 | WPDPROCEDUR ---
Procedures Intubation Intubation Date: 07/02/22 Intubation Time: 13:30 Consent: Procedure was done as emergency and as medical necessity A pre-procedural Time-Out was completed immediately before starting the procedure and confirmed: Patient Identification, Site, Procedure, Patient Position and the Availability of Requisite Equipment: Yes Sedative: etomidate Mg given: 40 Laryngoscope: fiber optic video scope ET tube size: cuffed Tube secured depth (cm): 25 Tube secured location: lips Tube placement confirmation: visualized tube passing through cords, equal breath sounds bilaterally, no breath sounds over epigastrium and confirmation by capnometry Patient tolerated procedure: other Intubation complications: difficult intubation and hypoxia Additional comments: See my separate note for all the details of the events
[2022-07-02] MEDS: NOREPINEPHRINE 8 MG/D5W 250 ML 8 MG/250 ML BAG 9.38 MG IV CONT (16:05)
--- NOTE | 2022-07-02 16:48 | WPDPN ---
Progress Note: A&P Assessment and Plan (1) Respiratory failure: Code(s): J96.90 - Respiratory failure, unspecified, unspecified whether with hypoxia or hypercapnia Status: Acute Assessment and Plan: Kenny is POD1 tracheostomy placement for respiratory failure and inability to wean from ventilator. As noted above, today his tracheostomy tube became displaced from the trachea. It is unclear when this happened, apparently there was an issue with the tube during his PEG placement, his trach ties were replaced but this afternoon he started having subcutaneous emphysema and desaturation. ICU reintubated him and I came to the bedside tonight. After discussion with Dr. Lilly in anesthesia, we decided to replace the tracheostomy tube under sedation at the bedside to avoid manipulation and movement of the patient. Discussed this with family who agreed. He was then placed under general anesthesia with propofol, precidex and etomidate and we then removed the trach dressing. Surgicel was removed from the neck wound. [employer] retractors quickly exposed the trachea and the stoma. Using a cricoid hook to suspend the airway, the ETT was withdrawn and an 8-0 proximal XLT tracheostomy tube was placed without difficulty. The cuff was inflated, he was hooked up to the ventilator and end tidal CO2 was confirmed. He was then put back on vent settings and did well. The trach was then sutured to the skin in 4 point fixation and trach ties were tightly secured to the neck. There were no complications or desaturations. Subjective Date/time seen: 07/02/22 16:48 Interval history: Pt trach became dislodged and ICU staff had to reintubate the patient to re-establish airway. The trach sutures had not come out but it appears that the trach tube was no longer in the airway and the pt developed desaturation and subcutaneous emphysema. I was notified and came to the bedside with the patient stable with an ETT and on the ventilator. Review of Systems Review of Systems: ROS unobtainable: Yes unobtainable due to endotracheal tube Exam Narrative: Trach stoma covered, pt with endotracheal tube back in and on the ventilator. Neck is edematous with subcutaneous air. Objective Data Vital Signs Vital Signs: Vital Signs - 24 hr 07/01/22 17:00 07/01/22 17:54 07/01/22 18:00 Temperature Pulse Rate 66 66 64 Respiratory Rate 18 Blood Pressure Pulse Oximetry 100 Oxygen Delivery Mechanical Ventilation Fraction of Inspired Oxygen 30 07/01/22 18:00 07/01/22 18:47 07/01/22 18:47 Temperature 36.6 C Pulse Rate 67 68 68 Respiratory Rate 18 18 18 Blood Pressure 97/66 L Pulse Oximetry 100 Oxygen Delivery Fraction of Inspired Oxygen 07/01/22 20:00 07/01/22 20:00 07/01/22 20:00 Temperature 36.9 C Pulse Rate 68 64 69 Respiratory Rate 16 18 Blood Pressure 100/59 L Pulse Oximetry 100 100 Oxygen Delivery Mechanical Ventilation Fraction of Inspired Oxygen 30 07/01/22 20:00 07/01/22 20:25 07/01/22 20:29 Temperature Pulse Rate 67 68 Respiratory Rate 17 Blood Pressure Pulse Oximetry 100 Oxygen Delivery Mechanical Ventilation Fraction of Inspired Oxygen 30 30 07/01/22 20:43 07/01/22 22:00 07/01/22 22:00 Temperature 37.3 C Pulse Rate 67 68 69 Respiratory Rate 17 16 Blood Pressure 109/67 Pulse Oximetry 100 Oxygen Delivery Fraction of Inspired Oxygen 07/01/22 22:51 07/01/22 23:00 07/01/22 23:34 Temperature Pulse Rate 69 69 69 Respiratory Rate 16 16 18 Blood Pressure Pulse Oximetry Oxygen Delivery Fraction of Inspired Oxygen 07/01/22 23:34 07/02/22 00:00 07/02/22 00:00 Temperature 37.4 C Pulse Rate 69 69 69 Respiratory Rate 18 16 Blood Pressure 110/67 Pulse Oximetry 100 Oxygen Delivery Fraction of Inspired Oxygen 07/02/22 00:00 07/02/22 00:00 07/02/22 00:41 Temperature Pulse Rate 69 69 Respiratory Rate 20
--- NOTE | 2022-07-02 16:53 | PCRCNOTE ---
At 16:45 Dr. Dave placed a 8.0 shiley XLT trach.
--- NOTE | 2022-07-02 16:55 | SUR.OPER ---
Procedure performed at patient bedside in ICU-4. Surgical team (radiation protection technician, physician's assistant, and scrub) present to assist Dr. Dave with replacement of tracheostomy tube. MATERIALS SCHEDULER and Anesthesiologist at bedside, and received report from primary RN for current drips and vent settings. Respiratory therapist at bedside at end of case to confirm vent settings and function. See surgeon operative note for further details. Tracheostomy Tube- [id number] Inner cannula placed at head of bed with label, respiratory aware
[2022-07-02 17:38] LABS: Alveolar/Arterial O2 Gradient 217.5 mmHg; Base Excess ABG 4.3 mEq/l (+/-2.0); Fractional Inspired Oxygen 100 %; HCO3 ABG 29.9 mEq/l (22.0-26.0); Oxygen Saturation ABG 99.8 % (95.0-100.0); Oxyhemoglobin 98.3 % THb (90.0-100.0); PCO2 ABG 49.8 mmHg (35.0-45.0); PO2 ABG 445.7 mmHg (80.0-100.0); PO2 FiO2 Ratio Arterial Blood 4.46 %; Total Hemoglobin 10.7 g/dL (12.0-18.0); pH ABG 7.397 (7.350-7.450)
[2022-07-02 17:39] LABS: Device VENTILATOR; Modified Allen's Test Pass; Site Drawn RIGHT RADIAL
[2022-07-02 17:40] LABS: Arterial Blood Gas PEEP 5 cmH2O; Arterial Blood Gas Tidal Volume 400 ml; Arterial Blood Gas Vent Mode CMV; Arterial Blood Gas Ventilator rate 16 /MIN
[2022-07-02] MEDS: MINERAL OIL/WHITE PETROLATUM OINTMENT 1 APPLIC EACH EYE (21:01)
[2022-07-02] MEDS: METOPROLOL SUCCINATE EXT REL 12.5 MG TABCR PO (21:01)
[2022-07-02] MEDS: INSULIN GLARGINE (*BKC) 100 UNITS/ML 45 UNITS SUB-Q (21:06)
[2022-07-02 21:12] LABS: Glucose Point of Care 183 mg/dl (65-105)
[2022-07-03] VITALS (27 sets, daily range): BP systolic 112–154; BP diastolic 52–93; PULSE 76–111; RESP 20–30; TEMP 37.2–37.5; O2SAT 95–100; BMI 11.0
[2022-07-03] LABS: Glucose Point of Care 140 mg/dl (65-105)
[2022-07-03] MEDS: ALBUTEROL SULFATE NEB 2.5 MG/3 ML INH INHALATION ×4 (02:20→21:48)
[2022-07-03] MEDS: IPRATROPIUM BR 0.02% INH SOLN 0.5 MG/2.5 ML VIAL INHALATION ×4 (02:20→21:48)
[2022-07-03 05:17] LABS: Hematocrit 30.4 % (42.0-52.0); Hemoglobin 9.5 g/dL (14.0-18.0); Mean Corpuscular HGB Conc 31.3 g/dl (32-36); Mean Corpuscular Hemoglobin 30.9 pg (26-34); Mean Platelet Volume 9.6 fl (7.4-10.4); Platelet Count Result 275 k/mm3 (150-375); Red Blood Count 3.07 M/mm3 (4.6-6.20); Red Cell Distribution Width 13.4 % (11.5-14.5); White Blood Count 12.7 K/mm3 (4.5-10.0)
[2022-07-03 06:00] LABS: Alveolar/Arterial O2 Gradient 89.9 mmHg; Base Excess ABG 4.8 mEq/l (+/-2.0); Carboxyhemoglobin 0.2 % THb (0-2.0); Fractional Inspired Oxygen 35 %; HCO3 ABG 29.9 mEq/l (22.0-26.0); Methemoglobin ABG 0.2 %THb (0-1.5); Oxygen Content ABG 15.1 %vol (16.0-22.0); Oxygen Saturation ABG 97.9 % (95.0-100.0); Oxyhemoglobin 96.7 % THb (90.0-100.0); PCO2 ABG 46.8 mmHg (35.0-45.0); PO2 ABG 105.2 mmHg (80.0-100.0); PO2 FiO2 Ratio Arterial Blood 3.01 %; Reduced Hemoglobin 2.9 %THb (0-5.0); pH ABG 7.423 (7.350-7.450)
[2022-07-03 06:02] LABS: Arterial Blood Gas PEEP 5 cmH2O; Arterial Blood Gas Tidal Volume 400 ml; Arterial Blood Gas Vent Mode CMV; Arterial Blood Gas Ventilator rate 16 /MIN; Device VENTILATOR; Modified Allen's Test Pass; Site Drawn RIGHT RADIAL
[2022-07-03] MEDS: CENTRAL LINE FLUSH 10 ML IV PUSH ×3 (06:14→20:33)
[2022-07-03 06:31] LABS: Glucose Point of Care 165 mg/dl (65-105)
[2022-07-03 07:42] LABS: Alanine Aminotransferase 22 U/L (6-50); Albumin Level 3.6 g/dL (3.5-5.1); Alkaline Phosphatase 129 U/L (38-126); Anion Gap 11 mmol/L (8-16); Aspartate Amino Transferase 21 U/L (17-59); Bilirubin,Total 0.8 mg/dL (0.2-1.3); Blood Urea Nitrogen 48 mg/dL (9-20); Carbon Dioxide 28 mmol/L (22-30); Chloride 106 mmol/L (98-107); Estimated CRCL calculation 45 ml/min; Estimated Glomerular Filt Rate 45; Glucose 159 mg/dL (65-110); Magnesium 1.9 mg/dL (1.6-2.3); Potassium 3.4 mmol/L (3.4-5.0); Sodium 145 mmol/L (137-145)
[2022-07-03] MEDS: PANTOPRAZOLE SODIUM IV 40 MG VIAL IV PUSH ×2 (09:01→20:32)
[2022-07-03] MEDS: ATORVASTATIN 40 MG TABLET PO (09:01)
[2022-07-03] MEDS: SACUBITRIL/VALSARTAN 12-13 MG TABLET 1 TAB PO ×2 (09:01→20:32)
[2022-07-03] MEDS: TOLNAFTATE 1% POWDER 45 GM BTL 1 APPLIC TOPICAL ×2 (09:01→20:32)
[2022-07-03] MEDS: APIXABAN 5 MG TABLET 10 MG PO ×2 (09:01→20:33)
[2022-07-03] MEDS: AMIODARONE HCL 200 MG TABLET 400 MG PO (09:01)
[2022-07-03] MEDS: METOPROLOL SUCCINATE EXT REL 12.5 MG TABCR PO (09:02)
--- NOTE | 2022-07-03 09:28 | WPDINTPN ---
Progress Note: A&P Assessment and Plan (1) Acute respiratory failure with hypoxia: Code(s): J96.01 - Acute respiratory failure with hypoxia Status: Acute Assessment and Plan: Acute respiratory failure likely related to cardiac arrest -patient was intubated ED on 06/11/2022 -patient was extubated on 06/19 after weaning trials for couple of days. After few hours patient became tachypneic, with increased work of breathing and respiratory distress. Patient was given additional dose of Lasix and was placed on BiPAP. On BiPAP patient initially improved later deteriorated and was reintubated on 06/19 Post extubation I did not hear any stridor on exam. Patient was wheezing and grunting but it was not inspiratory stridor. Later I was told by the nursing staff the patient was stridorous prior to re-intubation. Status post Solu-Medrol 06/21 -completed a course of Solu-Medrol. Cuff leak present today on exam. Failed PSV trial within minutes due to high RSBI. Placed on pressure support of 12/5. Continue as tolerated 06/22 -failed PSV weaning trial. Needs pressure support of 12/5 for adequate RSBI. Will continue as tolerated 06/23 -failed 5/8 PSV trial due to high RSBI. Requires 12/8 pressure support for adequate RSBI. Continue as tolerated 06/24 -failed weaning trial within minutes with high RSBI and respiratory distress. I increased pressure support up to 15 that did not help and patient's respiratory rate remained of 30 with visible use of accessory muscles and patient was in respiratory distress. 06/25: Failed pressure support, was started on ASV mode of ventilation, tolerated ASV all day long before he was switched to CMV for tachypnea and tachycardia 06/26: Patient tolerated pressure support ventilation 12/5 for about 2 hours, after that he was put on ASV all day long. Switched to CMV during night as he does not sleep in this start him on propofol so we can get some rest. -blood pressures are much improved this morning 06/27/2022: Patient did tolerate PSV 12/5 for roughly 2-1/2 hours and then was anxious, worked up because they had to clean him after his bowel movement and was placed on CMV mode of ventilation. Patient diuresed very well, chest x-ray with improvement on the right side. -06/29: patient diuresed well on 06/28, dropped his pressures was started on Levophed, will hold diuresis for now -06/30: Patient coughed if his ETT overnight, ETT was full of thick secretions, patient was re-intubated. 07/01-tracheostomy done 07/02-patient appeared to have dislodged his tracheostomy tube. He was emergently reintubated and trach was removed. Patient had a new trach placed later in the evening by ENT 07/03 -placed on pressure support ventilation of 05/15. Continue as tolerated continue bronchodilators (Atrovent and ipratropium) S/P Unasyn for a 10 day course. DC vancomycin 06/21 Hold Lasix today due to elevated creatinine (2) Cardiac arrest with ventricular fibrillation: Code(s): I46.9 - Cardiac arrest, cause unspecified; I49.01 - Ventricular fibrillation Status: Acute Assessment and Plan: Patient presented with VFib arrest, ROSC within 15 minutes after EMS arrived and started CPR, (total down time was about 25 minutes.) -patient status post target temperature management, -elevated troponins likely related to cardiac arrest -post target temperature management he is following simple commands with all 4 extremities 06/16/2022: Patient had slow VFib/V-tach with no ICD discharge, requiring defibrillation x1, electrolytes were within normal limits patient was given amiodarone bolus and started on amiodarone infusion,. Cardiology was present during the episode. Cardiology going to evaluate AICD discharge thresholds Cardiology has switched amiodarone infusion to p.o. amiodarone now 06/14/2022 echocardiogram showed LV chamber dimension is severely enlarged, severely reduced LV systolic function with EF of 25-30%, mil
--- NOTE | 2022-07-03 10:51 | WPDGIPROGNO ---
Progress Note: A&P Assessment and Plan (1) Acute respiratory failure with hypoxia: Code(s): J96.01 - Acute respiratory failure with hypoxia Status: Acute Assessment and Plan: prolonged icu stay, today had tracheostomy s/p g-tube placement and tolerating tube feeding [place], call if questions (2) Cardiac arrest with ventricular fibrillation: Code(s): I46.9 - Cardiac arrest, cause unspecified; I49.01 - Ventricular fibrillation Status: Acute (3) Acute on chronic systolic CHF (congestive heart failure): Code(s): I50.23 - Acute on chronic systolic (congestive) heart failure Status: Acute (4) DVT, lower extremity: Code(s): I82.409 - Acute embolism and thrombosis of unspecified deep veins of unspecified lower extremity Status: Acute Assessment and Plan: on heparin gtt Subjective Date/time seen: 07/03/22 10:51 Interval history: tolerating tube feeding at 40 ml/h, family at bedside Review of Systems Review of Systems: All systems reviewed & are unremarkable except as noted in HPI and below Exam Narrative: General: Trached and awake no acute distress HEENT:? Pupils equal and reactive, sclera is clear, trach in place Neck:? Supple Respiratory:? Coarse breath sounds bilaterally, decreased at bases, adequate air entry trach is in place with secretions around Cardiac:? Paced rhythm Abdomen:? Soft, nontender, nondistended, normoactive bowel sounds, protuberant/obese, G-tube in place and looks ok with abdominal binder in place Extremities:? 1+ edema left more than right, palpable pedal pulses Neuro:? patient is awake, alert, follows commands and nods to questions Skin:? No lesions noted, warm and dry Psych:? Unable to assess at this time Objective Data Vital Signs Vital Signs: Vital Signs - 24 hr 07/02/22 10:55 07/02/22 11:00 07/02/22 11:05 Temperature Pulse Rate 87 72 68 Respiratory Rate 21 H 21 H 21 H Blood Pressure 63/52 L 64/51 L 68/53 L Pulse Oximetry 100 100 100 Oxygen Delivery Mechanical Ventilation Mechanical Ventilation Mechanical Ventilation Fraction of Inspired Oxygen 30 30 30 07/02/22 11:10 07/02/22 11:15 07/02/22 11:20 Temperature Pulse Rate 68 74 66 Respiratory Rate 22 H 20 21 H Blood Pressure 64/43 L 67/48 L 89/46 L Pulse Oximetry 100 100 100 Oxygen Delivery Mechanical Ventilation Mechanical Ventilation Mechanical Ventilation Fraction of Inspired Oxygen 30 30 30 07/02/22 12:01 07/02/22 12:00 07/02/22 12:00 Temperature 99.0 F Pulse Rate 71 73 Respiratory Rate 24 H Blood Pressure 109/58 L Pulse Oximetry 100 100 Oxygen Delivery Mechanical Ventilation Fraction of Inspired Oxygen 30 30 07/02/22 12:00 07/02/22 13:34 07/02/22 14:18 Temperature Pulse Rate 72 68 Respiratory Rate 24 H Blood Pressure Pulse Oximetry 100 Oxygen Delivery Mechanical Ventilation Mechanical Ventilation Fraction of Inspired Oxygen 30 30 07/02/22 14:00 07/02/22 15:44 07/02/22 15:49 Temperature 98.7 F Pulse Rate 69 70 73 Respiratory Rate 16 19 Blood Pressure 100/58 L Pulse Oximetry 100 100 Oxygen Delivery Mechanical Ventilation Fraction of Inspired Oxygen 100 07/02/22 16:05 07/02/22 16:50 07/02/22 16:00 Temperature 99.3 F Pulse Rate 78 61 67 Respiratory Rate 21 H Blood Pressure 85/62 L 85/62 L Pulse Oximetry 100 100 Oxygen Delivery Mechanical Ventilation Fraction of Inspired Oxygen 100 07/02/22 16:00 07/02/22 16:00 07/02/22 18:00 Temperature 97.9 F Pulse Rate 65 Respiratory Rate 16 Blood Pressure 113/60 Pulse Oximetry 99 Oxygen Delivery Mechanical Ventilation Fraction of Inspired Oxygen 100 07/02/22 12:00 07/02/22 14:00 07/02/22 16:00 Temperature Pulse Rate 73 69 83 Respiratory Rate Blood Pressure Pulse Oximetry Oxygen Delivery Fraction of Inspired Oxygen 07/02/22 18:00 07/02/22 20:00 07/02/22 20:00 [facility]
--- NOTE | 2022-07-03 11:09 | PM.PNCARD ---
Progress Note: A&P Assessment and Plan (1) Cardiac arrest with ventricular fibrillation: Code(s): I46.9 - Cardiac arrest, cause unspecified; I49.01 - Ventricular fibrillation Status: Acute Assessment and Plan: Stable rhythm at this point. Continue amiodarone (2) Presence of combination internal cardiac defibrillator (ICD) and pacemaker: Code(s): Z95.810 - Presence of automatic (implantable) cardiac defibrillator Status: Acute (3) Nonischemic cardiomyopathy: Code(s): I42.8 - Other cardiomyopathies Status: Acute Assessment and Plan: Continue current management (4) Paroxysmal atrial flutter: Code(s): I48.92 - Unspecified atrial flutter Status: Acute Assessment and Plan: Appears to be back in atrial flutter at this point, however, is rate-controlled. Will continue with rate control strategy. On Eliquis now. Increase Metoprolol for additional rate control as tolerated. (5) DVT, lower extremity: Code(s): I82.409 - Acute embolism and thrombosis of unspecified deep veins of unspecified lower extremity Status: Acute Assessment and Plan: Found on venous duplex 07/01. DVT in the calves in the right posterior tibial vein, left posterior tibial, left peroneal, and left soleus veins. On Eliquis now Subjective Date/time seen: 07/03/22 11:09 Interval history: Reason for visit: Cardiac arrest ?Follow-up visit in this 77-year-old man with: ? Severe nonischemic cardiomyopathy with lethal ventricular arrhythmias admitted following out of hospital VT arrest which was terminated by his ICD.? He was admitted to the ICU for evaluation and management following this.? ?? Date of service 06/24/2022:? ? Patient is condition essentially unchanged clinically.? Remains intubated on ventilator support in the ICU.? Low dose of the Entresto started yesterday.? Seems to be tolerating that hemodynamically.? Diuresing well in the past 24 hours.? Unfortunately failed weaning trial again this morning.? Spoke to patient and family will likely need a tracheostomy in the near future because of ongoing ventilator dependency 06/25/2022: No acute events overnight. Condition remains unchanged. Remains intubated. Hemodynamics tolerating Entresto and beta marisela. ? 06/28/2022:? ? No new cardiovascular events patient patient is hemodynamically tolerating low doses of Entresto and beta-marisela.? Plans are place Friday for tracheostomy and PEG tube.? Patient unfortunately remains? unweanable from ventilator support Date of service 06/29/2022:? Awake and responsive but still ventilated.? Plan for tracheostomy on Friday.? No chest pain or shortness of breath Date of service 06/30/2022:? He is awake, responsive.? No chest pain.? Plan for trach tomorrow.? Appears to be back in atrial flutter Date of service 07/02/2022: EKG showing rate-controlled flutter. On heparin drip for DVT as well. Patient does follow commands now. Getting PEG today. Date of service 07/03/2022: Patient had quite the eventful afternoon yesterday. His trach tube ended up becoming displaced from the trachea. He then developed subcutaneous emphysema. ICU team ended up reintubating him. Then a new trach tube was placed at bedside by ENT. Patient now is stable this morning. No issues with the trach. Got PEG tube yesterday. Tele showing rate controlled flutter. Patient is awake this morning. He does shake his head yes or no when asked questions. Gives a thumbs up sign. Squeezes hand. Follows other commands easily. Review of Systems Review of Systems: 8-point ROS obtained. Negative, unless stated in HPI. Exam Narrative: patient is arousable alert and responsive Const: General: comfortable and no acute distress HENMT: Mouth: Yes moist mucous membranes Other: Trach present Eyes: General: appearance normal, both eyes and all related structures Sclera: sclerae normal Pupils: Equal, round and reactive pupils pr
--- NOTE | 2022-07-03 11:39 | PCFNICU ---
ICU Rounding Note: Pt current nutrition is Vital AF 1.2 at 65 ml/hr. Last recorded weight is 117.9 kg. Bowel Motility:+Bm reported 07/03 Labs Reviewed:Glu 170,Hct 31.4,Hgb 9.7,BUN 42 Meds Noted:Protonix. Skin: Stage II Pressure Ulcer-buttocks. Additional Notes: Patient current with PEG and Trach. Tolerating tube feedings of Vital AF 1.2 at 65 ml/hr with Flush 30 ml q 4 hours. Recommend Shaan BID flush for wound healing which will provide an additional 90 kcals and 2.5 gms protein. Plans for LTAC. Following daily in ICU rounds. follow up T/F monitor feeding tolerance, per policy gastric residual, wt and labs.
[2022-07-03 11:58] LABS: Glucose Point of Care 176 mg/dl (65-105)
[2022-07-03 16:02] LABS: Glucose Point of Care 217 mg/dl (65-105)
[2022-07-03] MEDS: INSULIN ASPART (*BKC) 100 UNITS/ML SUB-Q ×2 (18:13→23:41)
[2022-07-03] MEDS: MORPHINE SULFATE (*CRX) 4 MG/ML INJ IV PUSH (18:53)
[2022-07-03] MEDS: INSULIN GLARGINE (*BKC) 100 UNITS/ML 45 UNITS SUB-Q (20:31)
[2022-07-03] MEDS: MINERAL OIL/WHITE PETROLATUM OINTMENT 1 APPLIC EACH EYE (20:33)
[2022-07-03 20:39] LABS: Glucose Point of Care 180 mg/dl (65-105)
[2022-07-03] MEDS: LORazepam INJ (*CRX) 2 MG/ML VIAL IV PUSH (21:46)
[2022-07-04] VITALS (37 sets, daily range): BP systolic 93–143; BP diastolic 53–100; PULSE 65–133; RESP 19–35; TEMP 37.2–37.7; O2SAT 95–100
[2022-07-04 00:20] LABS: Glucose Point of Care 209 mg/dl (65-105)
[2022-07-04] MEDS: ALBUTEROL SULFATE NEB 2.5 MG/3 ML INH INHALATION ×4 (01:52→21:01)
[2022-07-04] MEDS: IPRATROPIUM BR 0.02% INH SOLN 0.5 MG/2.5 ML VIAL INHALATION ×4 (01:52→21:01)
[2022-07-04] MEDS: LORazepam INJ (*CRX) 2 MG/ML VIAL 1 MG IV PUSH (02:30)
[2022-07-04 04:05] LABS: Hematocrit 28.2 % (42.0-52.0); Hemoglobin 8.7 g/dL (14.0-18.0); Mean Corpuscular HGB Conc 30.9 g/dl (32-36); Mean Corpuscular Hemoglobin 30.1 pg (26-34); Mean Corpuscular Volume 97.6 fl (80-100); Mean Platelet Volume 10.2 fl (7.4-10.4); Platelet Count Result 270 k/mm3 (150-375); Red Blood Count 2.89 M/mm3 (4.6-6.20); Red Cell Distribution Width 13.6 % (11.5-14.5); White Blood Count 12.8 K/mm3 (4.5-10.0)
[2022-07-04 04:15] LABS: Alanine Aminotransferase 18 U/L (6-50); Albumin Level 3.4 g/dL (3.5-5.1); Alkaline Phosphatase 138 U/L (38-126); Anion Gap 9 mmol/L (8-16); Aspartate Amino Transferase 20 U/L (17-59); Bilirubin,Total 0.6 mg/dL (0.2-1.3); Blood Urea Nitrogen 54 mg/dL (9-20); Calcium 9.1 mg/dL (8.4-10.2); Carbon Dioxide 29 mmol/L (22-30); Chloride 107 mmol/L (98-107); Estimated CRCL calculation 60 ml/min; Estimated Glomerular Filt Rate > 60; Glucose 194 mg/dL (65-110); Magnesium 2.1 mg/dL (1.6-2.3); Potassium 3.2 mmol/L (3.4-5.0); Sodium 145 mmol/L (137-145)
[2022-07-04 06:03] LABS: Alveolar/Arterial O2 Gradient 81.6 mmHg; Arterial Blood Gas Ventilator rate 16 /MIN; Base Excess ABG 3.1 mEq/l (+/-2.0); Carboxyhemoglobin 0.3 % THb (0-2.0); Device VENTILATOR; Fractional Inspired Oxygen 30 %; HCO3 ABG 28.3 mEq/l (22.0-26.0); Methemoglobin ABG 0.2 %THb (0-1.5); Modified Allen's Test Pass; Oxygen Content ABG 15.9 %vol (16.0-22.0); Oxygen Saturation ABG 95.6 % (95.0-100.0); Oxyhemoglobin 94.6 % THb (90.0-100.0); PCO2 ABG 45.9 mmHg (35.0-45.0); PO2 ABG 78.4 mmHg (80.0-100.0); PO2 FiO2 Ratio Arterial Blood 2.61 %; Reduced Hemoglobin 4.9 %THb (0-5.0); Site Drawn RIGHT RADIAL; Total Hemoglobin 11.9 g/dL (12.0-18.0); pH ABG 7.408 (7.350-7.450)
[2022-07-04 06:04] LABS: Arterial Blood Gas PEEP 5 cmH2O; Arterial Blood Gas Tidal Volume 400 ml; Arterial Blood Gas Vent Mode CMV
[2022-07-04] MEDS: dexmedeTOMIDine 400 MCG/100 ML 400 MCG/100 ML BAG 5.7 MCG IV CONT (06:16)
[2022-07-04] MEDS: CENTRAL LINE FLUSH 10 ML IV PUSH ×3 (06:17→21:20)
[2022-07-04] MEDS: LORazepam INJ (*CRX) 2 MG/ML VIAL IV PUSH (06:17)
[2022-07-04 07:27] LABS: Glucose Point of Care 201 mg/dl (65-105)
[2022-07-04] MEDS: INSULIN ASPART (*BKC) 100 UNITS/ML SUB-Q (07:39)
[2022-07-04] MEDS: AMIODARONE HCL 200 MG TABLET 400 MG PO (07:42)
[2022-07-04] MEDS: SACUBITRIL/VALSARTAN 12-13 MG TABLET 1 TAB PO ×2 (07:43→20:08)
[2022-07-04] MEDS: METOPROLOL SUCCINATE EXT REL 12.5 MG TABCR PO (07:43)
[2022-07-04] MEDS: TOLNAFTATE 1% POWDER 45 GM BTL 1 APPLIC TOPICAL ×2 (07:43→21:20)
[2022-07-04] MEDS: MINERAL OIL/WHITE PETROLATUM OINTMENT 1 APPLIC EACH EYE ×2 (07:43→20:09)
[2022-07-04] MEDS: ATORVASTATIN 40 MG TABLET PO (07:44)
[2022-07-04] MEDS: polyethylene glycoL 3350 17 GM POWD.PACK PO (07:44)
[2022-07-04] MEDS: PANTOPRAZOLE SODIUM IV 40 MG VIAL IV PUSH ×2 (07:44→20:09)
[2022-07-04] MEDS: APIXABAN 5 MG TABLET 10 MG PO ×2 (07:45→20:09)
[2022-07-04] MEDS: POTASSIUM CHLORIDE 20 MEQ PACKET (FOR LIQUID) 40 MEQ FEED TUBE ×2 (08:45→14:40)
--- NOTE | 2022-07-04 08:59 | PCPTNOTE ---
Attempted physical therapy initial evaluation, per KERRI Larsen, pt is currently sedated and restrained and is on hold for this morning. Will continue to follow.
--- NOTE | 2022-07-04 09:32 | PM.PNCARD ---
Progress Note: A&P Assessment and Plan (1) Cardiac arrest with ventricular fibrillation: Code(s): I46.9 - Cardiac arrest, cause unspecified; I49.01 - Ventricular fibrillation Status: Acute Assessment and Plan: Stable rhythm at this point. Continue amiodarone (2) Presence of combination internal cardiac defibrillator (ICD) and pacemaker: Code(s): Z95.810 - Presence of automatic (implantable) cardiac defibrillator Status: Acute (3) Nonischemic cardiomyopathy: Code(s): I42.8 - Other cardiomyopathies Status: Acute Assessment and Plan: Continue current management. Agree with continued IV furosemide and potassium supplementation (4) Paroxysmal atrial flutter: Code(s): I48.92 - Unspecified atrial flutter Status: Acute Assessment and Plan: Appears to be back in atrial flutter at this point, however, is rate-controlled. Will continue with rate control strategy. On Eliquis now. Increase Metoprolol for additional rate control as tolerated. (5) DVT, lower extremity: Code(s): I82.409 - Acute embolism and thrombosis of unspecified deep veins of unspecified lower extremity Status: Acute Assessment and Plan: Found on venous duplex 07/01. DVT in the calves in the right posterior tibial vein, left posterior tibial, left peroneal, and left soleus veins. On Eliquis now Subjective Date/time seen: 07/04/22 09:32 Interval history: Reason for visit: Cardiac arrest ?Follow-up visit in this 77-year-old man with: ? Severe nonischemic cardiomyopathy with lethal ventricular arrhythmias admitted following out of hospital VT arrest which was terminated by his ICD.? He was admitted to the ICU for evaluation and management following this.? ?? Date of service 06/24/2022:? ? Patient is condition essentially unchanged clinically.? Remains intubated on ventilator support in the ICU.? Low dose of the Entresto started yesterday.? Seems to be tolerating that hemodynamically.? Diuresing well in the past 24 hours.? Unfortunately failed weaning trial again this morning.? Spoke to patient and family will likely need a tracheostomy in the near future because of ongoing ventilator dependency 06/25/2022: No acute events overnight. Condition remains unchanged. Remains intubated. Hemodynamics tolerating Entresto and beta marisela. ? 06/28/2022:? ? No new cardiovascular events patient patient is hemodynamically tolerating low doses of Entresto and beta-marisela.? Plans are place Friday for tracheostomy and PEG tube.? Patient unfortunately remains? unweanable from ventilator support Date of service 06/29/2022:? Awake and responsive but still ventilated.? Plan for tracheostomy on Friday.? No chest pain or shortness of breath Date of service 06/30/2022:? He is awake, responsive.? No chest pain.? Plan for trach tomorrow.? Appears to be back in atrial flutter Date of service 07/02/2022: EKG showing rate-controlled flutter. On heparin drip for DVT as well. Patient does follow commands now. Getting PEG today. Date of service 07/03/2022: Patient had quite the eventful afternoon yesterday. His trach tube ended up becoming displaced from the trachea. He then developed subcutaneous emphysema. ICU team ended up reintubating him. Then a new trach tube was placed at bedside by ENT. Patient now is stable this morning. No issues with the trach. Got PEG tube yesterday. Tele showing rate controlled flutter. Patient is awake this morning. He does shake his head yes or no when asked questions. Gives a thumbs up sign. Squeezes hand. Follows other commands easily. Date of service 07/04/2022: Following commands but not is alert but is on sedation. Rhythm still shows atrial fibrillation/flutter. No chest pain. Review of Systems Review of Systems: All systems reviewed & are unremarkable except as noted in HPI and below ROS unobtainable: Yes unobtainable due to endotracheal tube, unobtainable due to medical con
--- NOTE | 2022-07-04 09:51 | PM.IMPN ---
Progress Note: A&P Assessment and Plan (1) Acute respiratory failure with hypoxia: Code(s): J96.01 - Acute respiratory failure with hypoxia Status: Acute Assessment and Plan: Acute respiratory failure likely related to cardiac arrest -patient sedated and intubated 07/03 -placed on pressure support ventilation of 05/15. Continue as tolerated continue bronchodilators (Atrovent and ipratropium) S/P Unasyn for a 10 day course. DC vancomycin 06/21 Hold Lasix today due to elevated creatinine (2) Cardiac arrest with ventricular fibrillation: Code(s): I46.9 - Cardiac arrest, cause unspecified; I49.01 - Ventricular fibrillation Status: Acute Assessment and Plan: Patient presented with VFib arrest, ROSC within 15 minutes after EMS arrived and started CPR, (total down time was about 25 minutes.) -patient status post target temperature management, -elevated troponins likely related to cardiac arrest -post target temperature management he is following simple commands with all 4 extremities 06/16/2022: Patient had slow VFib/V-tach with no ICD discharge, requiring defibrillation x1, electrolytes were within normal limits patient was given amiodarone bolus and started on amiodarone infusion,. Cardiology was present during the episode. Cardiology going to evaluate AICD discharge thresholds Cardiology has switched amiodarone infusion to p.o. amiodarone now 06/14/2022 echocardiogram showed LV chamber dimension is severely enlarged, severely reduced LV systolic function with EF of 25-30%, mild aortic valve sclerosis, trace mitral valve regurg left atrial chamber dimension is mildly enlarged. 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 Changed to q.4 hours -continue Lantus (5) Nonischemic cardiomyopathy: Code(s): I42.8 - Other cardiomyopathies Status: Acute Assessment and Plan: nonischemic cardiomyopathy with EF of 20-25% on an echocardiogram done and 06/12/2021 -status post AICD -discussed with Dr. Butterfield with Cardiology and no plans for further diagnostic workup including cardiac catheterization at this time -continue atorvastatin -patient is now on low-dose metoprolol and Entresto Echo Summary ? 1. Left ventricular chamber dimension is severely enlarged. ? 2. Left ventricular systolic function is severely reduced, estimated at 25-30%. ? 3. There is mild aortic valve sclerosis. ? 4. There is trace mitral valve regurgitation. ? 5. Left atrial chamber dimension is mildly enlarged. (6) Sepsis: Code(s): A41.9 - Sepsis, unspecified organism Status: Acute Assessment and Plan: Blood urine and sputum cultures sent on 06/17 negative till now Was On vancomycin and Unasyn 06/21 -DC vancomycin S/p 10 days of Unasyn Low procalcitonin (7) DVT, lower extremity: Code(s): I82.409 - Acute embolism and thrombosis of unspecified deep veins of unspecified lower extremity Status: Acute Assessment and Plan: 07/01 -lower extremity Dopplers showed DVT in both calves Eliquis started Subjective Date/time seen: 07/04/22 09:51 Sedated, int
--- NOTE | 2022-07-04 10:02 | WPDINTPN ---
Progress Note: A&P Assessment and Plan (1) Acute respiratory failure with hypoxia: Code(s): J96.01 - Acute respiratory failure with hypoxia Status: Acute Assessment and Plan: Acute respiratory failure likely related to cardiac arrest -patient was intubated ED on 06/11/2022 -patient was extubated on 06/19 after weaning trials for couple of days. After few hours patient became tachypneic, with increased work of breathing and respiratory distress. Patient was given additional dose of Lasix and was placed on BiPAP. On BiPAP patient initially improved later deteriorated and was reintubated on 06/19 Post extubation I did not hear any stridor on exam. Patient was wheezing and grunting but it was not inspiratory stridor. Later I was told by the nursing staff the patient was stridorous prior to re-intubation. Status post Solu-Medrol 06/21 -completed a course of Solu-Medrol. Cuff leak present today on exam. Failed PSV trial within minutes due to high RSBI. Placed on pressure support of 12/5. Continue as tolerated 06/22 -failed PSV weaning trial. Needs pressure support of 12/5 for adequate RSBI. Will continue as tolerated 06/23 -failed 5/8 PSV trial due to high RSBI. Requires 12/8 pressure support for adequate RSBI. Continue as tolerated 06/24 -failed weaning trial within minutes with high RSBI and respiratory distress. I increased pressure support up to 15 that did not help and patient's respiratory rate remained of 30 with visible use of accessory muscles and patient was in respiratory distress. 06/25: Failed pressure support, was started on ASV mode of ventilation, tolerated ASV all day long before he was switched to CMV for tachypnea and tachycardia 06/26: Patient tolerated pressure support ventilation 12/5 for about 2 hours, after that he was put on ASV all day long. Switched to CMV during night as he does not sleep in this start him on propofol so we can get some rest. -blood pressures are much improved this morning 06/27/2022: Patient did tolerate PSV 12/5 for roughly 2-1/2 hours and then was anxious, worked up because they had to clean him after his bowel movement and was placed on CMV mode of ventilation. Patient diuresed very well, chest x-ray with improvement on the right side. -06/29: patient diuresed well on 06/28, dropped his pressures was started on Levophed, will hold diuresis for now -06/30: Patient coughed if his ETT overnight, ETT was full of thick secretions, patient was re-intubated. 07/01-tracheostomy done 07/02-patient appeared to have dislodged his tracheostomy tube. He was emergently reintubated and trach was removed. Patient had a new trach placed later in the evening by ENT 07/03, 07/04 -placed on pressure support ventilation of 05/15. Continue as tolerated continue bronchodilators (Atrovent and ipratropium) S/P Unasyn for a 10 day course. DC vancomycin 06/21 Hold Lasix again today due to elevated but improving creatinine (2) Cardiac arrest with ventricular fibrillation: Code(s): I46.9 - Cardiac arrest, cause unspecified; I49.01 - Ventricular fibrillation Status: Acute Assessment and Plan: Patient presented with VFib arrest, ROSC within 15 minutes after EMS arrived and started CPR, (total down time was about 25 minutes.) -patient status post target temperature management, -elevated troponins likely related to cardiac arrest -post target temperature management he is following simple commands with all 4 extremities 06/16/2022: Patient had slow VFib/V-tach with no ICD discharge, requiring defibrillation x1, electrolytes were within normal limits patient was given amiodarone bolus and started on amiodarone infusion,. Cardiology was present during the episode. Cardiology going to evaluate AICD discharge thresholds Cardiology has switched amiodarone infusion to p.o. amiodarone now 06/14/2022 echocardiogram showed LV chamber dimension is severely enlarged, severely reduced LV systolic fun
[2022-07-04 12:32] LABS: Glucose Point of Care 175 mg/dl (65-105)
[2022-07-04 16:53] LABS: Glucose Point of Care 180 mg/dl (65-105)
--- NOTE | 2022-07-04 20:06 | WPDGIPROGNO ---
Progress Note: A&P Assessment and Plan (1) Acute respiratory failure with hypoxia: Code(s): J96.01 - Acute respiratory failure with hypoxia Status: Acute Assessment and Plan: prolonged icu stay he is post tracheostomy and g-tube placement- tolerating tube feeding (2) Cardiac arrest with ventricular fibrillation: Code(s): I46.9 - Cardiac arrest, cause unspecified; I49.01 - Ventricular fibrillation Status: Acute (3) Acute on chronic systolic CHF (congestive heart failure): Code(s): I50.23 - Acute on chronic systolic (congestive) heart failure Status: Acute (4) DVT, lower extremity: Code(s): I82.409 - Acute embolism and thrombosis of unspecified deep veins of unspecified lower extremity Status: Acute Assessment and Plan: treated Subjective Date/time seen: 07/04/22 20:06 Interval history: tolerating tube feeding at 65ml/h Review of Systems Review of Systems: All systems reviewed & are unremarkable except as noted in HPI and below Exam Narrative: General: Trached and awake no acute distress HEENT:? Pupils equal and reactive, sclera is clear, trach in place Neck:? Supple Respiratory:? Coarse breath sounds bilaterally, decreased at bases, adequate air entry trach is in place with secretions around Cardiac:? Paced rhythm Abdomen:? Soft, nontender, nondistended, normoactive bowel sounds, protuberant/obese, G-tube in place and looks ok with abdominal binder in place Extremities:? 1+ edema left more than right, palpable pedal pulses Neuro:? patient is awake, alert, follows commands and nods to questions Skin:? No lesions noted, warm and dry Psych:? Unable to assess at this time Objective Data Vital Signs Vital Signs: Vital Signs - 24 hr 07/03/22 21:48 07/03/22 21:00 07/03/22 22:00 Temperature 99.2 F Pulse Rate 111 H 104 H 91 Respiratory Rate 26 H 20 Blood Pressure 124/64 Pulse Oximetry 95 95 Oxygen Delivery Mechanical Ventilation Fraction of Inspired Oxygen 30 07/03/22 22:00 07/04/22 00:00 07/04/22 00:00 Temperature Pulse Rate 91 78 78 Respiratory Rate 20 Blood Pressure Pulse Oximetry 95 Oxygen Delivery Mechanical Ventilation Fraction of Inspired Oxygen 30 07/04/22 00:00 07/04/22 00:00 07/04/22 01:52 Temperature 99.5 F Pulse Rate 78 74 Respiratory Rate 19 19 Blood Pressure 119/68 Pulse Oximetry 96 Oxygen Delivery Fraction of Inspired Oxygen 30 07/04/22 02:00 07/04/22 02:00 07/04/22 02:20 Temperature 99.7 F H Pulse Rate 81 115 H 86 Respiratory Rate 24 H Blood Pressure 132/100 H Pulse Oximetry 96 99 Oxygen Delivery Mechanical Ventilation Fraction of Inspired Oxygen 30 07/04/22 04:00 07/04/22 04:00 07/04/22 04:00 Temperature Pulse Rate 88 Respiratory Rate Blood Pressure Pulse Oximetry Oxygen Delivery Mechanical Ventilation Fraction of Inspired Oxygen 30 30 07/04/22 04:00 07/04/22 05:05 07/04/22 06:16 Temperature 99.4 F Pulse Rate 89 85 128 H Respiratory Rate 24 H 35 H Blood Pressure 124/80 Pulse Oximetry 100 100 Oxygen Delivery Mechanical Ventilation Fraction of Inspired Oxygen 30 07/04/22 06:00 07/04/22 06:00 07/04/22 07:36 Temperature 99.8 F H Pulse Rate 133 H 116 H 82 Respiratory Rate 33 H 29 H Blood Pressure 129/86 Pulse Oximetry 96 Oxygen Delivery Fraction of Inspired Oxygen 07/04/22 07:42 07/04/22 07:43 07/04/22 07:40 Temperature 99.7 F H Pulse Rate 97 97 94 Respiratory Rate 24 H Blood Pressure 97/76 L Pulse Oximetry 97 Oxygen Delivery Fraction of Inspired Oxygen 07/04/22 07:59 07/04/22 07:59 07/04/22 08:38 Temperature Pulse Rate 78 88 79 Respiratory Rate 28 H 24 H Blood Pressure Pulse Oximetry 99 Oxygen Delivery Mechanical Ventilation Fraction of Inspired Oxygen 30 07/04/22 08:00 07/04/22 10:00 07/04/22 08:00 Temperature 99.4 F Pulse Rate 73 82 Respir
[2022-07-04] MEDS: QUEtiapine FUMARATE 25 MG TABLET 50 MG PO (20:09)
[2022-07-04] MEDS: INSULIN GLARGINE (*BKC) 100 UNITS/ML 55 UNITS SUB-Q (20:10)
[2022-07-04 20:16] LABS: Glucose Point of Care 171 mg/dl (65-105)
[2022-07-04] MEDS: dexmedeTOMIDine 400 MCG/100 ML 400 MCG/100 ML BAG 14.24 MCG IV CONT (20:49)
[2022-07-04 23:41] LABS: Glucose Point of Care 162 mg/dl (65-105)
[2022-07-05] VITALS (35 sets, daily range): BP systolic 83–137; BP diastolic 51–108; PULSE 70–97; RESP 14–30; TEMP 36.7–37.7; O2SAT 90–100
[2022-07-05] MEDS: IPRATROPIUM BR 0.02% INH SOLN 0.5 MG/2.5 ML VIAL INHALATION ×4 (03:02→20:45)
[2022-07-05] MEDS: ALBUTEROL SULFATE NEB 2.5 MG/3 ML INH INHALATION ×4 (03:02→20:45)
[2022-07-05 04:54] LABS: Hematocrit 28.1 % (42.0-52.0); Hemoglobin 8.5 g/dL (14.0-18.0); Mean Corpuscular HGB Conc 30.2 g/dl (32-36); Mean Corpuscular Hemoglobin 30.6 pg (26-34); Mean Corpuscular Volume 101.1 fl (80-100); Mean Platelet Volume 9.9 fl (7.4-10.4); Platelet Count Result 222 k/mm3 (150-375); Red Blood Count 2.78 M/mm3 (4.6-6.20); Red Cell Distribution Width 13.8 % (11.5-14.5); White Blood Count 10.6 K/mm3 (4.5-10.0)
[2022-07-05] MEDS: CENTRAL LINE FLUSH 10 ML IV PUSH ×3 (05:08→21:29)
[2022-07-05 05:09] LABS: Alanine Aminotransferase 20 U/L (6-50); Albumin Level 3.2 g/dL (3.5-5.1); Alkaline Phosphatase 136 U/L (38-126); Anion Gap 8 mmol/L (8-16); Aspartate Amino Transferase 28 U/L (17-59); Bilirubin,Total 0.5 mg/dL (0.2-1.3); Blood Urea Nitrogen 52 mg/dL (9-20); Calcium 8.9 mg/dL (8.4-10.2); Carbon Dioxide 31 mmol/L (22-30); Chloride 110 mmol/L (98-107); Estimated CRCL calculation 59 ml/min; Estimated Glomerular Filt Rate > 60; Glucose 206 mg/dL (65-110); Magnesium 2.1 mg/dL (1.6-2.3); Sodium 149 mmol/L (137-145)
[2022-07-05] MEDS: dexmedeTOMIDine 400 MCG/100 ML 400 MCG/100 ML BAG 11.39 MCG IV CONT (05:40)
[2022-07-05 06:35] LABS: Glucose Point of Care 198 mg/dl (65-105)
[2022-07-05 06:52] LABS: Alveolar/Arterial O2 Gradient 49.5 mmHg; Base Excess ABG 6.1 mEq/l (+/-2.0); Carboxyhemoglobin 0.3 % THb (0-2.0); Fractional Inspired Oxygen 30 %; HCO3 ABG 30.7 mEq/l (22.0-26.0); Methemoglobin ABG 0.4 %THb (0-1.5); Oxygen Content ABG 10.6 %vol (16.0-22.0); Oxygen Saturation ABG 98.2 % (95.0-100.0); Oxyhemoglobin 96.7 % THb (90.0-100.0); PCO2 ABG 45.5 mmHg (35.0-45.0); PO2 ABG 110.9 mmHg (80.0-100.0); Reduced Hemoglobin 2.6 %THb (0-5.0); pH ABG 7.447 (7.350-7.450)
[2022-07-05 07:02] LABS: Device VENTILATOR; Modified Allen's Test Pass; Site Drawn RIGHT RADIAL; Total Hemoglobin 7.6 g/dL (12.0-18.0)
[2022-07-05 07:03] LABS: Arterial Blood Gas Vent Mode ASV
[2022-07-05 07:04] LABS: Arterial Blood Gas PEEP 5 cmH2O; Peak Inspiratory Pressure 15 cmH2O
--- NOTE | 2022-07-05 09:50 | WPDINTPN ---
Progress Note: A&P Assessment and Plan (1) Acute respiratory failure with hypoxia: Code(s): J96.01 - Acute respiratory failure with hypoxia Status: Acute Assessment and Plan: Acute respiratory failure likely related to cardiac arrest -patient was intubated ED on 06/11/2022 -patient was extubated on 06/19 after weaning trials for couple of days. After few hours patient became tachypneic, with increased work of breathing and respiratory distress. Patient was given additional dose of Lasix and was placed on BiPAP. On BiPAP patient initially improved later deteriorated and was reintubated on 06/19 Post extubation I did not hear any stridor on exam. Patient was wheezing and grunting but it was not inspiratory stridor. Later I was told by the nursing staff the patient was stridorous prior to re-intubation. Status post Solu-Medrol 06/21 -completed a course of Solu-Medrol. Cuff leak present today on exam. Failed PSV trial within minutes due to high RSBI. Placed on pressure support of 12/5. Continue as tolerated 06/22 -failed PSV weaning trial. Needs pressure support of 12/5 for adequate RSBI. Will continue as tolerated 06/23 -failed 5/8 PSV trial due to high RSBI. Requires 12/8 pressure support for adequate RSBI. Continue as tolerated 06/24 -failed weaning trial within minutes with high RSBI and respiratory distress. I increased pressure support up to 15 that did not help and patient's respiratory rate remained of 30 with visible use of accessory muscles and patient was in respiratory distress. 06/25: Failed pressure support, was started on ASV mode of ventilation, tolerated ASV all day long before he was switched to CMV for tachypnea and tachycardia 06/26: Patient tolerated pressure support ventilation 12/5 for about 2 hours, after that he was put on ASV all day long. Switched to CMV during night as he does not sleep in this start him on propofol so we can get some rest. -blood pressures are much improved this morning 06/27/2022: Patient did tolerate PSV 12/5 for roughly 2-1/2 hours and then was anxious, worked up because they had to clean him after his bowel movement and was placed on CMV mode of ventilation. Patient diuresed very well, chest x-ray with improvement on the right side. -06/29: patient diuresed well on 06/28, dropped his pressures was started on Levophed, will hold diuresis for now -06/30: Patient coughed if his ETT overnight, ETT was full of thick secretions, patient was re-intubated. 07/01-tracheostomy done 07/02-patient appeared to have dislodged his tracheostomy tube. He was emergently reintubated and trach was removed. Patient had a new trach placed later in the evening by ENT 07/03, 07/04, 07/05 -placed on pressure support ventilation of 15/ 5. Continue as tolerated. He does not tolerate lower pressure support due to high RSBI continue bronchodilators (Atrovent and ipratropium) S/P Unasyn for a 10 day course. DC vancomycin 06/21 Hold Lasix for now (2) Cardiac arrest with ventricular fibrillation: Code(s): I46.9 - Cardiac arrest, cause unspecified; I49.01 - Ventricular fibrillation Status: Acute Assessment and Plan: Patient presented with VFib arrest, ROSC within 15 minutes after EMS arrived and started CPR, (total down time was about 25 minutes.) -patient status post target temperature management, -elevated troponins likely related to cardiac arrest -post target temperature management he is following simple commands with all 4 extremities 06/16/2022: Patient had slow VFib/V-tach with no ICD discharge, requiring defibrillation x1, electrolytes were within normal limits patient was given amiodarone bolus and started on amiodarone infusion,. Cardiology was present during the episode. Cardiology going to evaluate AICD discharge thresholds Cardiology has switched amiodarone infusion to p.o. amiodarone now 06/14/2022 echocardiogram showed LV chamber dimension is severely enlarged, severel
[2022-07-05] MEDS: SACUBITRIL/VALSARTAN 12-13 MG TABLET 1 TAB PO ×2 (10:01→21:28)
[2022-07-05] MEDS: PANTOPRAZOLE SODIUM IV 40 MG VIAL IV PUSH ×2 (10:01→21:27)
[2022-07-05] MEDS: APIXABAN 5 MG TABLET 10 MG PO ×2 (10:01→21:27)
[2022-07-05] MEDS: AMIODARONE HCL 200 MG TABLET 400 MG PO (10:02)
[2022-07-05] MEDS: METOPROLOL SUCCINATE EXT REL 12.5 MG TABCR PO (10:03)
[2022-07-05] MEDS: ATORVASTATIN 40 MG TABLET PO (10:03)
[2022-07-05] MEDS: polyethylene glycoL 3350 17 GM POWD.PACK PO (10:04)
[2022-07-05] MEDS: TOLNAFTATE 1% POWDER 45 GM BTL 1 APPLIC TOPICAL ×2 (10:05→21:29)
--- NOTE | 2022-07-05 10:05 | PM.IMPN ---
Progress Note: A&P Assessment and Plan (1) Acute respiratory failure with hypoxia: Code(s): J96.01 - Acute respiratory failure with hypoxia Status: Acute Assessment and Plan: Acute respiratory failure likely related to cardiac arrest -placed on pressure support ventilation of 15/ 5. Continue as tolerated. He does not tolerate lower pressure support due to high RSBI continue bronchodilators (Atrovent and ipratropium) S/P Unasyn for a 10 day course. DC vancomycin 06/21 Hold Lasix for now (2) Cardiac arrest with ventricular fibrillation: Code(s): I46.9 - Cardiac arrest, cause unspecified; I49.01 - Ventricular fibrillation Status: Acute Assessment and Plan: 06/16/2022: Patient had slow VFib/V-tach with no ICD discharge, requiring defibrillation x1, electrolytes were within normal limits patient was given amiodarone bolus and started on amiodarone infusion,. Cardiology was present during the episode. Cardiology going to evaluate AICD discharge thresholds Cardiology has switched amiodarone infusion to p.o. amiodarone now 06/14/2022 echocardiogram showed LV chamber dimension is severely enlarged, severely reduced LV systolic function with EF of 25-30%, mild aortic valve sclerosis, trace mitral valve regurg left atrial chamber dimension is mildly enlarged. 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 (5) Nonischemic cardiomyopathy: Code(s): I42.8 - Other cardiomyopathies Status: Acute Assessment and Plan: nonischemic cardiomyopathy with EF of 20-25% on an echocardiogram done and 06/12/2021 -status post AICD -discussed with Dr. Butterfield with Cardiology and no plans for further diagnostic workup including cardiac catheterization at this time -continue atorvastatin -patient is now on low-dose metoprolol and Entresto Echo Summary ? 1. Left ventricular chamber dimension is severely enlarged. ? 2. Left ventricular systolic function is severely reduced, estimated at 25-30%. ? 3. There is mild aortic valve sclerosis. ? 4. There is trace mitral valve regurgitation. ? 5. Left atrial chamber dimension is mildly enlarged. (6) Sepsis: Code(s): A41.9 - Sepsis, unspecified organism Status: Acute Assessment and Plan: Blood urine and sputum cultures sent on 06/17 negative till now Was On vancomycin and Unasyn 06/21 -DC vancomycin S/p 10 days of Unasyn Low procalcitonin (7) DVT, lower extremity: Code(s): I82.409 - Acute embolism and thrombosis of unspecified deep veins of unspecified lower extremity Status: Acute Assessment and Plan: 07/01 -lower extremity Dopplers showed DVT in both calves Eliquis started Plan management per creative arts therapist Subjective Date/time seen: 07/05/22 10:05 sedated intubated Review of Systems Review of Systems: ROS unobtainable: Yes unobtainable due to endotracheal tube, unobtainable due to medical condition and unobtainable due to mental status Exam Narrative: General: sedated intubated HEENT:? Pupils equal and reactive, sclera is clear, trach in place Neck:? Supple Respiratory:? Coarse breath sounds bilaterally, decreased at ba
--- NOTE | 2022-07-05 10:20 | PCNFU ---
Nutrition Follow-Up Complete: decreased nutrient needs related to NPO status as evidence by diet order Goal: Meet estimated energy needs through TF - Goal being met Pt current nutrition is Vital AF 1.2 @ goal rate 65 ml/h with flushes 30 ml q 4 hours. Nutrition recommendation: Continue same tube feeding order and flushes Last recorded weight is 114.6 kg. Bowel Motility: +1 BM 07/04/22 Labs Reviewed: Hgb 8.5, Hct 28.1, Na 149, BUN 52, Glu 198 Meds Noted: Precedex, Zofran, miralax Skin: Stage 2 buttocks Additional Notes: Tube feeding was increased to goal and patient is tolerating well. S/p trach and PEG tube. follow up T/F monitor feeding tolerance, per policy gastric residual, wt and labs
--- NOTE | 2022-07-05 10:52 | PCPTNOTE ---
Began PT evaluation in bed. However, pt's RN needing perform procedure/change equipment prior to PT evaluation/getting pt to EOB. Will follow.
--- NOTE | 2022-07-05 10:55 | PM.PNCARD ---
Progress Note: A&P Assessment and Plan (1) Cardiac arrest with ventricular fibrillation: Code(s): I46.9 - Cardiac arrest, cause unspecified; I49.01 - Ventricular fibrillation Status: Acute Assessment and Plan: Stable rhythm at this point. Continue amiodarone (2) Presence of combination internal cardiac defibrillator (ICD) and pacemaker: Code(s): Z95.810 - Presence of automatic (implantable) cardiac defibrillator Status: Acute (3) Nonischemic cardiomyopathy: Code(s): I42.8 - Other cardiomyopathies Status: Acute Assessment and Plan: Continue current management. Appears to be increasingly volume depleted. Sodium is high and BUN continues to rise. Will reduce his furosemide to 20 mg IV daily (4) Paroxysmal atrial flutter: Code(s): I48.92 - Unspecified atrial flutter Status: Acute Assessment and Plan: Appears to be back in atrial flutter at this point, however, is rate-controlled. Will continue with rate control strategy. On Eliquis now. Increase Metoprolol for additional rate control as tolerated. (5) DVT, lower extremity: Code(s): I82.409 - Acute embolism and thrombosis of unspecified deep veins of unspecified lower extremity Status: Acute Assessment and Plan: Found on venous duplex 07/01. DVT in the calves in the right posterior tibial vein, left posterior tibial, left peroneal, and left soleus veins. On Eliquis now Subjective Date/time seen: 07/05/22 10:55 Interval history: Reason for visit: Cardiac arrest ?Follow-up visit in this 77-year-old man with: ? Severe nonischemic cardiomyopathy with lethal ventricular arrhythmias admitted following out of hospital VT arrest which was terminated by his ICD.? He was admitted to the ICU for evaluation and management following this.? ?? Date of service 06/24/2022:? ? Patient is condition essentially unchanged clinically.? Remains intubated on ventilator support in the ICU.? Low dose of the Entresto started yesterday.? Seems to be tolerating that hemodynamically.? Diuresing well in the past 24 hours.? Unfortunately failed weaning trial again this morning.? Spoke to patient and family will likely need a tracheostomy in the near future because of ongoing ventilator dependency 06/25/2022: No acute events overnight. Condition remains unchanged. Remains intubated. Hemodynamics tolerating Entresto and beta marisela. ? 06/28/2022:? ? No new cardiovascular events patient patient is hemodynamically tolerating low doses of Entresto and beta-marisela.? Plans are place Friday for tracheostomy and PEG tube.? Patient unfortunately remains? unweanable from ventilator support Date of service 06/29/2022:? Awake and responsive but still ventilated.? Plan for tracheostomy on Friday.? No chest pain or shortness of breath Date of service 06/30/2022:? He is awake, responsive.? No chest pain.? Plan for trach tomorrow.? Appears to be back in atrial flutter Date of service 07/02/2022: EKG showing rate-controlled flutter. On heparin drip for DVT as well. Patient does follow commands now. Getting PEG today. Date of service 07/03/2022: Patient had quite the eventful afternoon yesterday. His trach tube ended up becoming displaced from the trachea. He then developed subcutaneous emphysema. ICU team ended up reintubating him. Then a new trach tube was placed at bedside by ENT. Patient now is stable this morning. No issues with the trach. Got PEG tube yesterday. Tele showing rate controlled flutter. Patient is awake this morning. He does shake his head yes or no when asked questions. Gives a thumbs up sign. Squeezes hand. Follows other commands easily. Date of service 07/04/2022: Following commands but not is alert but is on sedation. Rhythm still shows atrial fibrillation/flutter. No chest pain. Date of service 07/05/2022: Heavily sedated this point. And unresponsive. Still in atrial flutter Review of Systems Review of System
[2022-07-05 13:31] LABS: Glucose Point of Care 197 mg/dl (65-105)
[2022-07-05 13:31] LABS: Glucose Point of Care 175 mg/dl (65-105)
[2022-07-05] MEDS: INSULIN GLARGINE (*BKC) 100 UNITS/ML 55 UNITS SUB-Q (21:26)
[2022-07-05] MEDS: MINERAL OIL/WHITE PETROLATUM OINTMENT 1 APPLIC EACH EYE (21:27)
[2022-07-05] MEDS: QUEtiapine FUMARATE 25 MG TABLET 50 MG PO (21:28)
[2022-07-05 21:51] LABS: Glucose Point of Care 176 mg/dl (65-105)
[2022-07-06] VITALS (29 sets, daily range): BP systolic 97–135; BP diastolic 48–85; PULSE 68–95; RESP 16–28; TEMP 34.9–37.5; O2SAT 97–100; BMI 10.0
[2022-07-06 00:44] LABS: Glucose Point of Care 166 mg/dl (65-105)
[2022-07-06] MEDS: IPRATROPIUM BR 0.02% INH SOLN 0.5 MG/2.5 ML VIAL INHALATION ×4 (03:06→19:42)
[2022-07-06] MEDS: ALBUTEROL SULFATE NEB 2.5 MG/3 ML INH INHALATION ×4 (03:06→19:43)
[2022-07-06 05:50] LABS: Alveolar/Arterial O2 Gradient 66.9 mmHg; Base Excess ABG 11.7 mEq/l (+/-2.0); Carboxyhemoglobin 0.3 % THb (0-2.0); Fractional Inspired Oxygen 30 %; HCO3 ABG 36.3 mEq/l (22.0-26.0); Methemoglobin ABG 0.9 %THb (0-1.5); Oxygen Content ABG 8.9 %vol (16.0-22.0); Oxygen Saturation ABG 97.1 % (95.0-100.0); Oxyhemoglobin 95.2 % THb (90.0-100.0); PO2 ABG 88.3 mmHg (80.0-100.0); PO2 FiO2 Ratio Arterial Blood 2.94 %; Reduced Hemoglobin 3.6 %THb (0-5.0); pH ABG 7.479 (7.350-7.450)
[2022-07-06 05:52] LABS: Device VENTILATOR; Modified Allen's Test Pass; Site Drawn RIGHT RADIAL; Total Hemoglobin 6.5 g/dL (12.0-18.0)
[2022-07-06 05:53] LABS: Arterial Blood Gas Vent Mode PRESSURE SUPPORT
[2022-07-06 05:54] LABS: Arterial Blood Gas PEEP 5 cmH2O; Arterial Blood Gas Pressure Support 15 cmH2O
[2022-07-06 06:04] LABS: Glucose Point of Care 153 mg/dl (65-105)
[2022-07-06 06:07] LABS: Hematocrit 29.4 % (42.0-52.0); Hemoglobin 8.8 g/dL (14.0-18.0); Mean Corpuscular HGB Conc 29.9 g/dl (32-36); Mean Corpuscular Hemoglobin 30.4 pg (26-34); Mean Corpuscular Volume 101.7 fl (80-100); Platelet Count Result 217 k/mm3 (150-375); Red Blood Count 2.89 M/mm3 (4.6-6.20)
[2022-07-06] MEDS: CENTRAL LINE FLUSH 10 ML IV PUSH ×3 (06:14→20:55)
[2022-07-06 06:17] LABS: Alanine Aminotransferase 23 U/L (6-50); Albumin Level 3.3 g/dL (3.5-5.1); Alkaline Phosphatase 134 U/L (38-126); Anion Gap 3 mmol/L (8-16); Aspartate Amino Transferase 27 U/L (17-59); Bilirubin,Total 0.5 mg/dL (0.2-1.3); Blood Urea Nitrogen 44 mg/dL (9-20); Calcium 9.2 mg/dL (8.4-10.2); Carbon Dioxide 31 mmol/L (22-30); Chloride 113 mmol/L (98-107); Estimated CRCL calculation 72 ml/min; Estimated Glomerular Filt Rate > 60; Glucose 162 mg/dL (65-110); Magnesium 2.1 mg/dL (1.6-2.3); Potassium 4.8 mmol/L (3.4-5.0); Sodium 147 mmol/L (137-145)
--- NOTE | 2022-07-06 07:32 | PM.IMPN ---
Progress Note: A&P Assessment and Plan (1) Acute respiratory failure with hypoxia: Code(s): J96.01 - Acute respiratory failure with hypoxia Status: Acute Assessment and Plan: Acute respiratory failure likely related to cardiac arrest Appreciate critical care management (2) Cardiac arrest with ventricular fibrillation: Code(s): I46.9 - Cardiac arrest, cause unspecified; I49.01 - Ventricular fibrillation Status: Acute Assessment and Plan: 06/14/2022 echocardiogram showed LV chamber dimension is severely enlarged, severely reduced LV systolic function with EF of 25-30%, mild aortic valve sclerosis, trace mitral valve regurg left atrial chamber dimension is mildly enlarged. (3) Acute kidney injury: Code(s): N17.9 - Acute kidney failure, unspecified Status: Acute Assessment and Plan: creatinine resolved, BUN still elevated at 44 (4) DM type 2 (diabetes mellitus, type 2): Qualifiers: Diabetes mellitus complication status: without complication Diabetes mellitus skilled nursing insulin use: without skilled nursing use Qualified Code(s): E11.9 - Type 2 diabetes mellitus without complications Code(s): E11.9 - Type 2 diabetes mellitus without complications Status: Acute Assessment and Plan: Continue Accu-Cheks and sliding scale insulin. (5) Nonischemic cardiomyopathy: Code(s): I42.8 - Other cardiomyopathies Status: Acute Assessment and Plan: continue metoprolol and Entresto, status post AICD (6) Sepsis: Code(s): A41.9 - Sepsis, unspecified organism Status: Acute Assessment and Plan: status post 10 days of Unasyn (7) DVT, lower extremity: Code(s): I82.409 - Acute embolism and thrombosis of unspecified deep veins of unspecified lower extremity Status: Acute Assessment and Plan: 07/01 -lower extremity Dopplers showed DVT in both calves Eliquis started Plan DVT prophylaxis with Eliquis GI prophylaxis with PPI Code status full code Subjective Date/time seen: 07/06/22 07:32 Interval history: Trach/PEG, no overnight events noted. Review of Systems Review of Systems: ROS unobtainable: Yes unobtainable due to mental status Exam Narrative: General: trach, alert HEENT:? Pupils equal and reactive, sclera is clear, trach in place Neck:? Supple Respiratory:? Coarse breath sounds bilaterally, decreased at bases, adequate air entry trach is in place with secretions around Cardiac:? Paced rhythm Abdomen:? Soft, nontender, nondistended, normoactive bowel sounds, protuberant/obese Extremities:? 1+ edema left more than right, palpable pedal pulses Skin:? No lesions noted, warm and dry Objective Data Vital Signs Vital Signs: Vital Signs - 24 hr 07/05/22 07:53 07/05/22 07:54 07/05/22 08:17 Temperature Pulse Rate 70 70 70 Respiratory Rate 23 H 14 Blood Pressure Pulse Oximetry 100 Oxygen Delivery Mechanical Ventilation Fraction of Inspired Oxygen 30 07/05/22 08:02 07/05/22 08:16 07/05/22 09:00 Temperature Pulse Rate 70 70 70 Respiratory Rate 22 H 23 H 20 Blood Pressure Pulse Oximetry Oxygen Delivery Fraction of Inspired Oxygen 07/05/22 10:02 07/05/22 10:03 07/05/22 10:45 Temperature Pulse Rate 75 75 81 Respiratory Rate Blood Pressure Pulse Oximetry 100 Oxygen Delivery Mechanical Ventilation Fraction of Inspired Oxygen 30 07/05/22 14:15 07/05/22 14:15 07/05/22 16:41 Temperature Pulse Rate 78 78 87 Respiratory Rate 22 H Blood Pressure Pulse Oximetry 99 100 Oxygen Delivery Mechanical Ventilation Mechanical Ventilation Fraction of Inspired Oxygen 30 30 07/05/22 08:00 07/05/22 08:00 07/05/22 08:00 Temperature 98.8 F Pulse Rate 87 70 Respiratory Rate 24 H Blood Pressure 83/52 L Pulse Oximetry 100 Oxygen Delivery Fraction of Inspired Oxygen 30 07/05/22 10:00 07/05/22 10:00 07/05/22
[2022-07-06] MEDS: APIXABAN 5 MG TABLET 10 MG PO ×2 (08:28→20:55)
[2022-07-06] MEDS: SACUBITRIL/VALSARTAN 12-13 MG TABLET 1 TAB PO ×2 (08:28→20:54)
[2022-07-06] MEDS: METOPROLOL SUCCINATE EXT REL 12.5 MG TABCR PO (08:28)
[2022-07-06] MEDS: PANTOPRAZOLE SODIUM IV 40 MG VIAL IV PUSH ×2 (08:28→20:54)
[2022-07-06] MEDS: MINERAL OIL/WHITE PETROLATUM OINTMENT 1 APPLIC EACH EYE ×2 (08:29→20:54)
[2022-07-06] MEDS: ATORVASTATIN 40 MG TABLET PO (08:29)
[2022-07-06] MEDS: AMIODARONE HCL 200 MG TABLET 400 MG PO (08:29)
[2022-07-06] MEDS: polyethylene glycoL 3350 17 GM POWD.PACK PO (08:30)
[2022-07-06] MEDS: TOLNAFTATE 1% POWDER 45 GM BTL 1 APPLIC TOPICAL ×2 (08:31→20:55)
--- NOTE | 2022-07-06 09:30 | WPDINTPN ---
Progress Note: A&P Assessment and Plan (1) Acute respiratory failure with hypoxia: Code(s): J96.01 - Acute respiratory failure with hypoxia Status: Acute Assessment and Plan: Acute respiratory failure likely related to cardiac arrest -patient was intubated ED on 06/11/2022 -patient was extubated on 06/19 after weaning trials for couple of days. After few hours patient became tachypneic, with increased work of breathing and respiratory distress. Patient was given additional dose of Lasix and was placed on BiPAP. On BiPAP patient initially improved later deteriorated and was reintubated on 06/19 Post extubation I did not hear any stridor on exam. Patient was wheezing and grunting but it was not inspiratory stridor. Later I was told by the nursing staff the patient was stridorous prior to re-intubation. Status post Solu-Medrol 06/21 -completed a course of Solu-Medrol. Cuff leak present today on exam. Failed PSV trial within minutes due to high RSBI. Placed on pressure support of 12/5. Continue as tolerated 06/22 -failed PSV weaning trial. Needs pressure support of 12/5 for adequate RSBI. Will continue as tolerated 06/23 -failed 5/8 PSV trial due to high RSBI. Requires 12/8 pressure support for adequate RSBI. Continue as tolerated 06/24 -failed weaning trial within minutes with high RSBI and respiratory distress. I increased pressure support up to 15 that did not help and patient's respiratory rate remained of 30 with visible use of accessory muscles and patient was in respiratory distress. 06/25: Failed pressure support, was started on ASV mode of ventilation, tolerated ASV all day long before he was switched to CMV for tachypnea and tachycardia 06/26: Patient tolerated pressure support ventilation 12/5 for about 2 hours, after that he was put on ASV all day long. Switched to CMV during night as he does not sleep in this start him on propofol so we can get some rest. -blood pressures are much improved this morning 06/27/2022: Patient did tolerate PSV 12/5 for roughly 2-1/2 hours and then was anxious, worked up because they had to clean him after his bowel movement and was placed on CMV mode of ventilation. Patient diuresed very well, chest x-ray with improvement on the right side. -06/29: patient diuresed well on 06/28, dropped his pressures was started on Levophed, will hold diuresis for now -06/30: Patient coughed if his ETT overnight, ETT was full of thick secretions, patient was re-intubated. 07/01-tracheostomy done 07/02-patient appeared to have dislodged his tracheostomy tube. He was emergently reintubated and trach was removed. Patient had a new trach placed later in the evening by ENT 07/03, 07/04, 07/05 -placed on pressure support ventilation of 15/ 5. Continue as tolerated. He does not tolerate lower pressure support due to high RSBI 07/06 -pressure support decreased to 12/5. He does not tolerate lower pressure support at this time continue bronchodilators (Atrovent and ipratropium) S/P Unasyn for a 10 day course. DC vancomycin 06/21 Resume Lasix (2) Cardiac arrest with ventricular fibrillation: Code(s): I46.9 - Cardiac arrest, cause unspecified; I49.01 - Ventricular fibrillation Status: Acute Assessment and Plan: Patient presented with VFib arrest, ROSC within 15 minutes after EMS arrived and started CPR, (total down time was about 25 minutes.) -patient status post target temperature management, -elevated troponins likely related to cardiac arrest -post target temperature management he is following simple commands with all 4 extremities 06/16/2022: Patient had slow VFib/V-tach with no ICD discharge, requiring defibrillation x1, electrolytes were within normal limits patient was given amiodarone bolus and started on amiodarone infusion,. Cardiology was present during the episode. Cardiology going to evaluate AICD discharge thresholds Cardiology has switched amiodarone infusion to p.o. amiodaro
[2022-07-06 10:19] LABS: Glucose Point of Care 169 mg/dl (65-105)
[2022-07-06] MEDS: DEXTROSE 5% IN WATER 500 ML 100 ML IV CONT (10:38)
[2022-07-06 12:44] LABS: Glucose Point of Care 187 mg/dl (65-105)
[2022-07-06] MEDS: FUROSEMIDE INJ 40 MG/4 ML VIAL IV PUSH (13:03)
[2022-07-06 16:42] LABS: Glucose Point of Care 206 mg/dl (65-105)
[2022-07-06] MEDS: INSULIN ASPART (*BKC) 100 UNITS/ML SUB-Q (16:44)
[2022-07-06] MEDS: ONDANSETRON INJ 4 MG/2 ML VIAL IV PUSH (18:00)
[2022-07-06] MEDS: INSULIN GLARGINE (*BKC) 100 UNITS/ML 55 UNITS SUB-Q (20:53)
[2022-07-06] MEDS: QUEtiapine FUMARATE 25 MG TABLET 50 MG PO (20:55)
[2022-07-06 20:57] LABS: Glucose Point of Care 128 mg/dl (65-105)
[2022-07-07] VITALS (33 sets, daily range): BP systolic 96–122; BP diastolic 58–68; PULSE 69–130; RESP 14–28; TEMP 36.8–37.1; O2SAT 91–100
[2022-07-07 00:34] LABS: Glucose Point of Care 129 mg/dl (65-105)
[2022-07-07] MEDS: IPRATROPIUM BR 0.02% INH SOLN 0.5 MG/2.5 ML VIAL INHALATION ×4 (01:59→20:17)
[2022-07-07] MEDS: ALBUTEROL SULFATE NEB 2.5 MG/3 ML INH INHALATION ×4 (01:59→20:17)
[2022-07-07] MEDS: LORazepam INJ (*CRX) 2 MG/ML VIAL 1 MG IV PUSH (02:32)
[2022-07-07 04:29] LABS: Hematocrit 29.4 % (42.0-52.0); Hemoglobin 8.7 g/dL (14.0-18.0); Mean Corpuscular HGB Conc 29.6 g/dl (32-36); Mean Corpuscular Hemoglobin 30.2 pg (26-34); Mean Corpuscular Volume 102.1 fl (80-100); Mean Platelet Volume 9.8 fl (7.4-10.4); Platelet Count Result 213 k/mm3 (150-375); Red Blood Count 2.88 M/mm3 (4.6-6.20); White Blood Count 8.9 K/mm3 (4.5-10.0)
[2022-07-07 04:41] LABS: Alanine Aminotransferase 26 U/L (6-50); Albumin Level 3.2 g/dL (3.5-5.1); Alkaline Phosphatase 138 U/L (38-126); Anion Gap 7 mmol/L (8-16); Aspartate Amino Transferase 26 U/L (17-59); Bilirubin,Total 0.5 mg/dL (0.2-1.3); Blood Urea Nitrogen 40 mg/dL (9-20); Calcium 8.7 mg/dL (8.4-10.2); Carbon Dioxide 32 mmol/L (22-30); Chloride 109 mmol/L (98-107); Estimated CRCL calculation 65 ml/min; Estimated Glomerular Filt Rate > 60; Glucose 161 mg/dL (65-110); Sodium 148 mmol/L (137-145)
[2022-07-07] MEDS: CENTRAL LINE FLUSH 10 ML IV PUSH ×3 (04:56→20:28)
[2022-07-07 08:32] LABS: Glucose Point of Care 151 mg/dl (65-105)
[2022-07-07] MEDS: polyethylene glycoL 3350 17 GM POWD.PACK PO (08:36)
[2022-07-07] MEDS: PANTOPRAZOLE SODIUM IV 40 MG VIAL IV PUSH ×2 (08:37→20:28)
[2022-07-07] MEDS: APIXABAN 5 MG TABLET 10 MG PO ×2 (08:38→20:28)
[2022-07-07] MEDS: SACUBITRIL/VALSARTAN 12-13 MG TABLET 1 TAB PO ×2 (08:38→20:28)
[2022-07-07] MEDS: AMIODARONE HCL 200 MG TABLET 400 MG PO (08:39)
[2022-07-07] MEDS: METOPROLOL SUCCINATE EXT REL 12.5 MG TABCR PO (08:39)
[2022-07-07] MEDS: ATORVASTATIN 40 MG TABLET PO (08:41)
[2022-07-07] MEDS: MINERAL OIL/WHITE PETROLATUM OINTMENT 1 APPLIC EACH EYE ×2 (08:42→20:25)
[2022-07-07] MEDS: TOLNAFTATE 1% POWDER 45 GM BTL 1 APPLIC TOPICAL ×2 (08:43→20:28)
--- NOTE | 2022-07-07 08:47 | P.PNINT_ITS ---
Progress Note: A&P Assessment and Plan (1) Acute respiratory failure with hypoxia: Code(s): J96.01 - Acute respiratory failure with hypoxia Status: Acute Assessment and Plan: Acute respiratory failure likely related to cardiac arrest -patient was intubated ED on 06/11/2022 -patient was extubated on 06/19 after weaning trials for couple of days. After few hours patient became tachypneic, with increased work of breathing and respiratory distress. Patient was given additional dose of Lasix and was placed on BiPAP. On BiPAP patient initially improved later deteriorated and was reintubated on 06/19 Post extubation I did not hear any stridor on exam. Patient was wheezing and grunting but it was not inspiratory stridor. Later I was told by the nursing staff the patient was stridorous prior to re-intubation. Status post Solu- Medrol 06/21 -completed a course of Solu-Medrol. Cuff leak present today on exam. Failed PSV trial within minutes due to high RSBI. Placed on pressure support of 12/5. Continue as tolerated 06/22 -failed PSV weaning trial. Needs pressure support of 12/5 for adequate RSBI. Will continue as tolerated 06/23 -failed 5/8 PSV trial due to high RSBI. Requires 12/8 pressure support for adequate RSBI. Continue as tolerated 06/24 -failed weaning trial within minutes with high RSBI and respiratory distress. I increased pressure support up to 15 that did not help and patient's respiratory rate remained of 30 with visible use of accessory muscles and patient was in respiratory distress. 06/25: Failed pressure support, was started on ASV mode of ventilation, tolerated ASV all day long before he was switched to CMV for tachypnea and tachycardia 06/26: Patient tolerated pressure support ventilation 12/5 for about 2 hours, after that he was put on ASV all day long. Switched to CMV during night as he does not sleep in this start him on propofol so we can get some rest. -blood pressures are much improved this morning 06/27/2022: Patient did tolerate PSV 12/5 for roughly 2-1/2 hours and then was anxious, worked up because they had to clean him after his bowel movement and was placed on CMV mode of ventilation. Patient diuresed very well, chest x-ray with improvement on the right side. -06/29: patient diuresed well on 06/28, dropped his pressures was started on Levophed, will hold diuresis for now -06/30: Patient coughed if his ETT overnight, ETT was full of thick secretions, patient was re-intubated. 07/01-tracheostomy done 07/02-patient appeared to have dislodged his tracheostomy tube. He was mayo rgently reintubated and trach was removed. Patient had a new trach placed later in the evening by ENT 07/03, 07/04, 07/05 -placed on pressure support ventilation of 15/ 5. Continue as tolerated. He does not tolerate lower pressure support due to high RSBI 07/06 -pressure support decreased to 12/5. He does not tolerate lower pressure support at this time 07/07-FiO2 weaned down to 28%. Patient placed on 5/5 pressure support ventilation trial continue bronchodilators (Atrovent and ipratropium) S/P Unasyn for a 10 day course. DC vancomycin 06/21 Continue Lasix (2) Cardiac arrest with ventricular fibrillation: Code(s): I46.9 - Cardiac arrest, cause unspecified; I49.01 - Ventricular fibrillation Status: Acute Assessment and Plan: Patient presented with VFib arrest, ROSC within 15 minutes after EMS arrived and started CPR, (total down time was about 25 minutes.) -patient status post target temperature management, -elevated troponins likely related to cardiac arrest -post target temperature management he is following simple commands with all 4 extremities
[2022-07-07] MEDS: FUROSEMIDE INJ 40 MG/4 ML VIAL 20 MG IV PUSH (09:35)
[2022-07-07] MEDS: LORazepam INJ (*CRX) 2 MG/ML VIAL IV PUSH ×2 (09:40→20:10)
--- NOTE | 2022-07-07 09:54 | PCOTNOTE ---
Per RN, wait to see patient this AM for OT due to just received lerazopam and became tachy. HR approx. 117 BPM in supine. Will check back on patient.
[2022-07-07 10:44] LABS: Partial Thromboplastin Time 87.2 SECONDS (22.3-36.8)
[2022-07-07 12:17] LABS: Glucose Point of Care 139 mg/dl (65-105)
--- NOTE | 2022-07-07 12:29 | PCOTNOTE ---
A 2nd attempt was made this AM to have pt participate in therapy session. Per RN, pt is unarousable at this time. Will continue per poc duration/frequency tomorrow.
[2022-07-07] MEDS: ONDANSETRON INJ 4 MG/2 ML VIAL IV PUSH (15:22)
[2022-07-07 17:22] LABS: Glucose Point of Care 156 mg/dl (65-105)
[2022-07-07] MEDS: INSULIN GLARGINE (*BKC) 100 UNITS/ML 55 UNITS SUB-Q (20:25)
[2022-07-07] MEDS: QUEtiapine FUMARATE 25 MG TABLET 50 MG PO (20:31)
[2022-07-07 20:49] LABS: Glucose Point of Care 138 mg/dl (65-105)
[2022-07-07] MEDS: MORPHINE SULFATE (*CRX) 4 MG/ML INJ IV PUSH (21:43)
[2022-07-07 23:57] LABS: Glucose Point of Care 156 mg/dl (65-105)
[2022-07-08] VITALS (26 sets, daily range): BP systolic 94–114; BP diastolic 51–64; PULSE 67–91; RESP 15–24; TEMP 36.6–37.4; O2SAT 97–100
[2022-07-08] MEDS: ALBUTEROL SULFATE NEB 2.5 MG/3 ML INH INHALATION ×4 (01:42→20:23)
[2022-07-08] MEDS: IPRATROPIUM BR 0.02% INH SOLN 0.5 MG/2.5 ML VIAL INHALATION ×4 (01:42→20:23)
[2022-07-08] MEDS: LORazepam INJ (*CRX) 2 MG/ML VIAL IV PUSH ×2 (02:39→06:45)
[2022-07-08 04:12] LABS: Basophils Percent Auto 0.5 % (0.2-1.2); Eosinophils Absolute Auto 0.7 K/mm3 (0-0.3); Eosinophils Percent Auto 7.8 % (0-4.4); Hematocrit 29.2 % (42.0-52.0); Hemoglobin 8.5 g/dL (14.0-18.0); Immature Granulocyte Absolute 0.06 K/mm3 (0.00-0.031); Immature Granulocyte Percent A 0.7 % (0-0.5); Lymphocytes Absolute Auto 0.66 K/mm3 (0.9-3.2); Lymphocytes Percent Auto 7.9 % (18.3-44.2); Mean Corpuscular HGB Conc 29.1 g/dl (32-36); Mean Corpuscular Hemoglobin 30.2 pg (26-34); Mean Corpuscular Volume 103.9 fl (80-100); Monocytes Absolute Auto 0.6 K/mm3 (0.1-0.6); Monocytes Percent Auto 6.9 % (2.6-8.5); Neutrophils Absolute Auto 6.4 K/mm3 (1.3-6.7); Neutrophils Percent Auto 76.2 % (45.5-73.1); Platelet Count Result 197 k/mm3 (150-375); Red Blood Count 2.81 M/mm3 (4.6-6.20); Red Cell Distribution Width 14.3 % (11.5-14.5); White Blood Count 8.4 K/mm3 (4.5-10.0)
[2022-07-08 04:32] LABS: Anion Gap 4 mmol/L (8-16); Blood Urea Nitrogen 42 mg/dL (9-20); Calcium 8.6 mg/dL (8.4-10.2); Carbon Dioxide 36 mmol/L (22-30); Chloride 107 mmol/L (98-107); Estimated CRCL calculation 71 ml/min; Estimated Glomerular Filt Rate > 60; Glucose 154 mg/dL (65-110); Magnesium 1.9 mg/dL (1.6-2.3); Potassium 4.1 mmol/L (3.4-5.0); Sodium 147 mmol/L (137-145)
[2022-07-08] MEDS: PANTOPRAZOLE SODIUM IV 40 MG VIAL IV PUSH ×2 (09:01→20:18)
[2022-07-08] MEDS: ATORVASTATIN 40 MG TABLET PO (09:02)
[2022-07-08] MEDS: APIXABAN 5 MG TABLET 10 MG PO ×2 (09:02→20:17)
[2022-07-08] MEDS: polyethylene glycoL 3350 17 GM POWD.PACK PO (09:02)
[2022-07-08] MEDS: AMIODARONE HCL 200 MG TABLET 400 MG PO (09:02)
--- NOTE | 2022-07-08 09:23 | WPDINTPN ---
Progress Note: A&P Assessment and Plan (1) Acute respiratory failure with hypoxia: Code(s): J96.01 - Acute respiratory failure with hypoxia Status: Acute Assessment and Plan: Acute respiratory failure likely related to cardiac arrest -patient was intubated ED on 06/11/2022 -patient was extubated on 06/19 after weaning trials for couple of days. After few hours patient became tachypneic, with increased work of breathing and respiratory distress. Patient was given additional dose of Lasix and was placed on BiPAP. On BiPAP patient initially improved later deteriorated and was reintubated on 06/19 Post extubation I did not hear any stridor on exam. Patient was wheezing and grunting but it was not inspiratory stridor. Later I was told by the nursing staff the patient was stridorous prior to re-intubation. Status post Solu-Medrol 06/21 -completed a course of Solu-Medrol. Cuff leak present today on exam. Failed PSV trial within minutes due to high RSBI. Placed on pressure support of 12/5. Continue as tolerated 06/22 -failed PSV weaning trial. Needs pressure support of 12/5 for adequate RSBI. Will continue as tolerated 06/23 -failed 5/8 PSV trial due to high RSBI. Requires 12/8 pressure support for adequate RSBI. Continue as tolerated 06/24 -failed weaning trial within minutes with high RSBI and respiratory distress. I increased pressure support up to 15 that did not help and patient's respiratory rate remained of 30 with visible use of accessory muscles and patient was in respiratory distress. 06/25: Failed pressure support, was started on ASV mode of ventilation, tolerated ASV all day long before he was switched to CMV for tachypnea and tachycardia 06/26: Patient tolerated pressure support ventilation 12/5 for about 2 hours, after that he was put on ASV all day long. Switched to CMV during night as he does not sleep in this start him on propofol so we can get some rest. -blood pressures are much improved this morning 06/27/2022: Patient did tolerate PSV 12/5 for roughly 2-1/2 hours and then was anxious, worked up because they had to clean him after his bowel movement and was placed on CMV mode of ventilation. Patient diuresed very well, chest x-ray with improvement on the right side. -06/29: patient diuresed well on 06/28, dropped his pressures was started on Levophed, will hold diuresis for now -06/30: Patient coughed if his ETT overnight, ETT was full of thick secretions, patient was re-intubated. 07/01-tracheostomy done 07/02-patient appeared to have dislodged his tracheostomy tube. He was emergently reintubated and trach was removed. Patient had a new trach placed later in the evening by ENT 07/03, 07/04, 07/05 -placed on pressure support ventilation of 15/ 5. Continue as tolerated. He did not tolerate lower pressure support due to high RSBI 07/06 -pressure support decreased to 12/5. He did not tolerate lower pressure support at this time 07/07-FiO2 weaned down to 28%. Patient placed on 5/5 pressure support ventilation he tolerated for little bit but then patient got tachypneic and in distress. Pressure support was increased back to 15/5 through the day and later at night he was switched back to CMV. Overnight continue bronchodilators (Atrovent and ipratropium) S/P Unasyn for a 10 day course. DC vancomycin 06/21 Continue Lasix (2) Cardiac arrest with ventricular fibrillation: Code(s): I46.9 - Cardiac arrest, cause unspecified; I49.01 - Ventricular fibrillation Status: Acute Assessment and Plan: Patient presented with VFib arrest, ROSC within 15 minutes after EMS arrived and started CPR, (total down time was about 25 minutes.) -patient status post target temperature management, -elevated troponins likely related to cardiac arrest -post target temperature management he is following simple commands with all 4 extremities 06/16/2022: Patient had slow VFib/V-tach with no ICD discharge, requiring defibrill
--- NOTE | 2022-07-08 09:34 | PM.PNCARD ---
Progress Note: A&P Assessment and Plan (1) Cardiac arrest with ventricular fibrillation: Code(s): I46.9 - Cardiac arrest, cause unspecified; I49.01 - Ventricular fibrillation Status: Acute Assessment and Plan: Stable rhythm at this point. Continue amiodarone (2) Presence of combination internal cardiac defibrillator (ICD) and pacemaker: Code(s): Z95.810 - Presence of automatic (implantable) cardiac defibrillator Status: Acute (3) Nonischemic cardiomyopathy: Code(s): I42.8 - Other cardiomyopathies Status: Acute Assessment and Plan: Continue current management. Will repeat a portable chest x-ray today. Adjust diuretics accordingly (4) Paroxysmal atrial flutter: Code(s): I48.92 - Unspecified atrial flutter Status: Acute Assessment and Plan: Appears to be back in atrial flutter at this point, however, is rate-controlled. Will continue with rate control strategy. On Eliquis now. Continue metoprolol (5) DVT, lower extremity: Code(s): I82.409 - Acute embolism and thrombosis of unspecified deep veins of unspecified lower extremity Status: Acute Assessment and Plan: Found on venous duplex 07/01. DVT in the calves in the right posterior tibial vein, left posterior tibial, left peroneal, and left soleus veins. On Eliquis now Subjective Date/time seen: 07/08/22 09:34 Interval history: Reason for visit: Cardiac arrest ?Follow-up visit in this 77-year-old man with: ? Severe nonischemic cardiomyopathy with lethal ventricular arrhythmias admitted following out of hospital VT arrest which was terminated by his ICD.? He was admitted to the ICU for evaluation and management following this.? ?? Date of service 06/24/2022:? ? Patient is condition essentially unchanged clinically.? Remains intubated on ventilator support in the ICU.? Low dose of the Entresto started yesterday.? Seems to be tolerating that hemodynamically.? Diuresing well in the past 24 hours.? Unfortunately failed weaning trial again this morning.? Spoke to patient and family will likely need a tracheostomy in the near future because of ongoing ventilator dependency 06/25/2022: No acute events overnight. Condition remains unchanged. Remains intubated. Hemodynamics tolerating Entresto and beta marisela. ? 06/28/2022:? ? No new cardiovascular events patient patient is hemodynamically tolerating low doses of Entresto and beta-marisela.? Plans are place Friday for tracheostomy and PEG tube.? Patient unfortunately remains? unweanable from ventilator support Date of service 06/29/2022:? Awake and responsive but still ventilated.? Plan for tracheostomy on Friday.? No chest pain or shortness of breath Date of service 06/30/2022:? He is awake, responsive.? No chest pain.? Plan for trach tomorrow.? Appears to be back in atrial flutter Date of service 07/02/2022: EKG showing rate-controlled flutter. On heparin drip for DVT as well. Patient does follow commands now. Getting PEG today. Date of service 07/03/2022: Patient had quite the eventful afternoon yesterday. His trach tube ended up becoming displaced from the trachea. He then developed subcutaneous emphysema. ICU team ended up reintubating him. Then a new trach tube was placed at bedside by ENT. Patient now is stable this morning. No issues with the trach. Got PEG tube yesterday. Tele showing rate controlled flutter. Patient is awake this morning. He does shake his head yes or no when asked questions. Gives a thumbs up sign. Squeezes hand. Follows other commands easily. Date of service 07/04/2022: Following commands but not is alert but is on sedation. Rhythm still shows atrial fibrillation/flutter. No chest pain. Date of service 07/05/2022: Heavily sedated this point. And unresponsive. Still in atrial flutter Date of service 07/08/2022: Sedated. Restless night. In atrial flutter. No active complaints Review of Systems Review of Systems:
[2022-07-08] MEDS: TOLNAFTATE 1% POWDER 45 GM BTL 1 APPLIC TOPICAL ×2 (10:17→20:18)
[2022-07-08] MEDS: SACUBITRIL/VALSARTAN 12-13 MG TABLET 1 TAB PO ×2 (10:25→20:19)
[2022-07-08] MEDS: METOPROLOL SUCCINATE EXT REL 12.5 MG TABCR PO (10:25)
[2022-07-08] MEDS: FUROSEMIDE INJ 40 MG/4 ML VIAL 20 MG IV PUSH (10:25)
[2022-07-08 13:09] LABS: Glucose Point of Care 136 mg/dl (65-105)
--- NOTE | 2022-07-08 14:58 | PCOTNOTE ---
Attempted to see patient for OT this date, however per PT assistance RN advised not to see due to given Ativan. Will continue plan of care.
--- NOTE | 2022-07-08 14:59 | PCPTNOTE ---
Attempted to see patient for PT, per RN advised not to see patient due to patient being very drowsy this date from anxiety medication from last night.
[2022-07-08 18:01] LABS: Glucose Point of Care 141 mg/dl (65-105)
[2022-07-08] MEDS: LORazepam INJ (*CRX) 2 MG/ML VIAL 1 MG IV PUSH (20:15)
[2022-07-08] MEDS: INSULIN GLARGINE (*BKC) 100 UNITS/ML 55 UNITS SUB-Q (20:16)
[2022-07-08] MEDS: QUEtiapine FUMARATE 25 MG TABLET 50 MG PO (20:18)
[2022-07-08] MEDS: MINERAL OIL/WHITE PETROLATUM OINTMENT 1 APPLIC EACH EYE (20:18)
[2022-07-08 20:41] LABS: Glucose Point of Care 160 mg/dl (65-105)
[2022-07-09] VITALS (31 sets, daily range): BP systolic 93–120; BP diastolic 51–68; PULSE 65–101; RESP 18–25; TEMP 36.6–37.4; O2SAT 94–100; BMI 10.0
[2022-07-09] MEDS: MORPHINE SULFATE (*CRX) 2 MG/ML INJ IV PUSH (00:10)
[2022-07-09 00:15] LABS: Glucose Point of Care 146 mg/dl (65-105)
[2022-07-09] MEDS: LORazepam INJ (*CRX) 2 MG/ML VIAL 1 MG IV PUSH ×2 (00:45→04:15)
[2022-07-09] MEDS: IPRATROPIUM BR 0.02% INH SOLN 0.5 MG/2.5 ML VIAL INHALATION ×4 (02:10→20:12)
[2022-07-09] MEDS: ALBUTEROL SULFATE NEB 2.5 MG/3 ML INH INHALATION ×4 (02:10→20:12)
[2022-07-09 04:27] LABS: Hematocrit 28.7 % (42.0-52.0); Hemoglobin 8.7 g/dL (14.0-18.0); Mean Corpuscular HGB Conc 30.3 g/dl (32-36); Mean Platelet Volume 10.2 fl (7.4-10.4); Platelet Count Result 201 k/mm3 (150-375); Red Cell Distribution Width 14.2 % (11.5-14.5); White Blood Count 9.4 K/mm3 (4.5-10.0)
[2022-07-09 04:52] LABS: Anion Gap 9 mmol/L (8-16); Blood Urea Nitrogen 46 mg/dL (9-20); Calcium 8.5 mg/dL (8.4-10.2); Carbon Dioxide 34 mmol/L (22-30); Chloride 106 mmol/L (98-107); Estimated CRCL calculation 65 ml/min; Estimated Glomerular Filt Rate > 60; Glucose 56 mg/dL (65-110); Potassium 3.9 mmol/L (3.4-5.0); Sodium 149 mmol/L (137-145)
[2022-07-09] MEDS: DEXTROSE 50% 25 GM/50 ML SYRINGE IV PUSH (04:53)
[2022-07-09 05:25] LABS: Glucose Point of Care 100 mg/dl (65-105)
[2022-07-09] MEDS: AMIODARONE HCL 200 MG TABLET 400 MG PO (08:09)
[2022-07-09] MEDS: ATORVASTATIN 40 MG TABLET PO (08:10)
[2022-07-09] MEDS: APIXABAN 5 MG TABLET 10 MG PO ×2 (08:10→21:00)
[2022-07-09] MEDS: PANTOPRAZOLE SODIUM IV 40 MG VIAL IV PUSH ×2 (08:10→20:59)
[2022-07-09] MEDS: FUROSEMIDE INJ 40 MG/4 ML VIAL 20 MG IV PUSH (08:10)
[2022-07-09] MEDS: polyethylene glycoL 3350 17 GM POWD.PACK PO (08:11)
[2022-07-09] MEDS: METOPROLOL SUCCINATE EXT REL 12.5 MG TABCR PO (08:11)
[2022-07-09] MEDS: MINERAL OIL/WHITE PETROLATUM OINTMENT 1 APPLIC EACH EYE ×2 (08:11→20:59)
[2022-07-09] MEDS: SACUBITRIL/VALSARTAN 12-13 MG TABLET 1 TAB PO ×2 (08:11→20:59)
[2022-07-09] MEDS: TOLNAFTATE 1% POWDER 45 GM BTL 1 APPLIC TOPICAL ×2 (08:11→20:59)
--- NOTE | 2022-07-09 10:25 | WPDINTPN ---
Progress Note: A&P Assessment and Plan (1) Acute respiratory failure with hypoxia: Code(s): J96.01 - Acute respiratory failure with hypoxia Status: Acute Assessment and Plan: Acute respiratory failure likely related to cardiac arrest -patient was intubated ED on 06/11/2022 -patient was extubated on 06/19 after weaning trials for couple of days. After few hours patient became tachypneic, with increased work of breathing and respiratory distress. Patient was given additional dose of Lasix and was placed on BiPAP. On BiPAP patient initially improved later deteriorated and was reintubated on 06/19 Post extubation I did not hear any stridor on exam. Patient was wheezing and grunting but it was not inspiratory stridor. Later I was told by the nursing staff the patient was stridorous prior to re-intubation. Status post Solu-Medrol 06/21 -completed a course of Solu-Medrol. Cuff leak present today on exam. Failed PSV trial within minutes due to high RSBI. Placed on pressure support of 12/5. Continue as tolerated 06/22 -failed PSV weaning trial. Needs pressure support of 12/5 for adequate RSBI. Will continue as tolerated 06/23 -failed 5/8 PSV trial due to high RSBI. Requires 12/8 pressure support for adequate RSBI. Continue as tolerated 06/24 -failed weaning trial within minutes with high RSBI and respiratory distress. I increased pressure support up to 15 that did not help and patient's respiratory rate remained of 30 with visible use of accessory muscles and patient was in respiratory distress. 06/25: Failed pressure support, was started on ASV mode of ventilation, tolerated ASV all day long before he was switched to CMV for tachypnea and tachycardia 06/26: Patient tolerated pressure support ventilation 12/5 for about 2 hours, after that he was put on ASV all day long. Switched to CMV during night as he does not sleep in this start him on propofol so we can get some rest. -blood pressures are much improved this morning 06/27/2022: Patient did tolerate PSV 12/5 for roughly 2-1/2 hours and then was anxious, worked up because they had to clean him after his bowel movement and was placed on CMV mode of ventilation. Patient diuresed very well, chest x-ray with improvement on the right side. -06/29: patient diuresed well on 06/28, dropped his pressures was started on Levophed, will hold diuresis for now -06/30: Patient coughed if his ETT overnight, ETT was full of thick secretions, patient was re-intubated. 07/01-tracheostomy done 07/02-patient appeared to have dislodged his tracheostomy tube. He was emergently reintubated and trach was removed. Patient had a new trach placed later in the evening by ENT 07/03, 07/04, 07/05 -placed on pressure support ventilation of 15/ 5. Continue as tolerated. He did not tolerate lower pressure support due to high RSBI 07/06 -pressure support decreased to 12/5. He did not tolerate lower pressure support at this time 07/07-FiO2 weaned down to 28%. Patient placed on 5/5 pressure support ventilation he tolerated for little bit but then patient got tachypneic and in distress. Pressure support was increased back to 15/5 through the day and later at night he was switched back to CMV. Overnight 07/08-patient was too sedated to tolerate pressure support yesterday during the day 1129 -chest x-ray reviewed IMPRESSION: 1. Diffuse lung disease with mild improvement, consistent with pulmonary edema versus pneumonia. 2. Possible small pleural effusions. 3. Cardiomegaly. Will try pressure support ventilation again today. Patient placed on 5/5. PSV continue as tolerated continue bronchodilators (Atrovent and ipratropium) S/P Unasyn for a 10 day course. DC vancomycin 06/21 Continue Lasix (2) Cardiac arrest with ventricular fibrillation: Code(s): I46.9 - Cardiac arrest, cause unspecified; I49.01 - Ventricular fibrillation Status: Acute Assessment and Plan: Patient presented with VFib arrest, R
--- NOTE | 2022-07-09 11:20 | PCNFU ---
Nutrition Follow-Up Complete: decreased nutrient needs related to NPO status as evidence by diet order goal: Meet estimated energy needs through TF Patient is progressing towards goal. We will continue current goal. Pt current nutrition is Vital AF 1.2 Last recorded weight is 115.6 kg. Bowel Motility:+Bm reported 07/07 Labs Reviewed:Na 149,BUN 46, Glu 56, Hgb 8.7,Hct 28.7 Meds Noted:Miralax, Protonix, Ativan, Lasix, Lantus, Novolog, Lipitor, Eliquis Skin: Stage II pressure ulcer-buttock Additional Notes: Patient current with PEG and Trach. Tube feedings at 60ml/hr today with plans for goal rate at 65 ml/hr. Tube feedings are being tolerated per nursing. Shaan BID added for wound healing, providing an additional 90 kcals and 2.5 gms protein. Agree with diet orders. follow up T/F monitor feeding tolerance, per policy gastric residual, wt and labs
[2022-07-09 12:12] LABS: Glucose Point of Care 116 mg/dl (65-105)
[2022-07-09 18:05] LABS: Glucose Point of Care 117 mg/dl (65-105)
[2022-07-09] MEDS: QUEtiapine FUMARATE 25 MG TABLET 50 MG PO (20:59)
[2022-07-09 21:04] LABS: Glucose Point of Care 154 mg/dl (65-105)
[2022-07-09] MEDS: INSULIN GLARGINE (*BKC) 100 UNITS/ML 45 UNITS SUB-Q (21:08)
[2022-07-10] VITALS (28 sets, daily range): BP systolic 92–130; BP diastolic 47–91; PULSE 61–99; RESP 19–29; TEMP 36.5–37.2; O2SAT 98–100; BMI 10.0
[2022-07-10] MEDS: LORazepam INJ (*CRX) 2 MG/ML VIAL 1 MG IV PUSH ×2 (00:19→04:45)
[2022-07-10 00:39] LABS: Glucose Point of Care 146 mg/dl (65-105)
[2022-07-10] MEDS: ALBUTEROL SULFATE NEB 2.5 MG/3 ML INH INHALATION ×4 (01:23→21:00)
[2022-07-10] MEDS: IPRATROPIUM BR 0.02% INH SOLN 0.5 MG/2.5 ML VIAL INHALATION ×4 (01:23→21:00)
[2022-07-10] MEDS: MORPHINE SULFATE (*CRX) 4 MG/ML INJ IV PUSH (02:10)
[2022-07-10 05:22] LABS: Anion Gap 3 mmol/L (8-16); Blood Urea Nitrogen 42 mg/dL (9-20); Calcium 8.5 mg/dL (8.4-10.2); Carbon Dioxide 36 mmol/L (22-30); Chloride 105 mmol/L (98-107); Estimated CRCL calculation 73 ml/min; Estimated Glomerular Filt Rate > 60; Glucose 172 mg/dL (65-110); Sodium 144 mmol/L (137-145)
[2022-07-10 05:28] LABS: Hemoglobin 8.6 g/dL (14.0-18.0); Mean Corpuscular HGB Conc 29.7 g/dl (32-36); Mean Corpuscular Hemoglobin 29.7 pg (26-34); Mean Platelet Volume 10.6 fl (7.4-10.4); Platelet Count Result 200 k/mm3 (150-375); Red Cell Distribution Width 13.9 % (11.5-14.5); White Blood Count 8.5 K/mm3 (4.5-10.0)
[2022-07-10] MEDS: MORPHINE SULFATE (*CRX) 2 MG/ML INJ IV PUSH (08:14)
[2022-07-10] MEDS: polyethylene glycoL 3350 17 GM POWD.PACK PO (08:24)
[2022-07-10] MEDS: AMIODARONE HCL 200 MG TABLET 400 MG PO (08:24)
[2022-07-10] MEDS: QUEtiapine FUMARATE 25 MG TABLET 50 MG PO ×2 (08:25→20:12)
[2022-07-10] MEDS: APIXABAN 5 MG TABLET PO ×2 (08:25→20:12)
[2022-07-10] MEDS: ATORVASTATIN 40 MG TABLET PO (08:26)
[2022-07-10] MEDS: PANTOPRAZOLE SODIUM IV 40 MG VIAL IV PUSH ×2 (08:26→20:13)
[2022-07-10] MEDS: FUROSEMIDE INJ 40 MG/4 ML VIAL 20 MG IV PUSH (08:26)
[2022-07-10] MEDS: METOPROLOL SUCCINATE EXT REL 12.5 MG TABCR PO (08:26)
[2022-07-10] MEDS: SACUBITRIL/VALSARTAN 12-13 MG TABLET 1 TAB PO ×2 (08:27→20:13)
[2022-07-10] MEDS: MINERAL OIL/WHITE PETROLATUM OINTMENT 1 APPLIC EACH EYE ×2 (08:27→20:12)
[2022-07-10] MEDS: TOLNAFTATE 1% POWDER 45 GM BTL 1 APPLIC TOPICAL ×2 (08:27→20:13)
--- NOTE | 2022-07-10 10:25 | PM.PNCARD ---
Progress Note: A&P Assessment and Plan (1) Cardiac arrest with ventricular fibrillation: Code(s): I46.9 - Cardiac arrest, cause unspecified; I49.01 - Ventricular fibrillation Status: Acute Assessment and Plan: Stable rhythm at this point. Continue amiodarone (2) Presence of combination internal cardiac defibrillator (ICD) and pacemaker: Code(s): Z95.810 - Presence of automatic (implantable) cardiac defibrillator Status: Acute (3) Nonischemic cardiomyopathy: Code(s): I42.8 - Other cardiomyopathies Status: Acute Assessment and Plan: Continue current management. Adjust diuretics accordingly (4) Paroxysmal atrial flutter: Code(s): I48.92 - Unspecified atrial flutter Status: Acute Assessment and Plan: Appears to be back in atrial flutter at this point, however, is rate-controlled. Will continue with rate control strategy. On Eliquis now. Continue metoprolol (5) DVT, lower extremity: Code(s): I82.409 - Acute embolism and thrombosis of unspecified deep veins of unspecified lower extremity Status: Acute Assessment and Plan: Found on venous duplex 07/01. DVT in the calves in the right posterior tibial vein, left posterior tibial, left peroneal, and left soleus veins. On Eliquis now Subjective Date/time seen: 07/10/22 10:25 Interval history: Reason for visit: Cardiac arrest ?Follow-up visit in this 77-year-old man with: ? Severe nonischemic cardiomyopathy with lethal ventricular arrhythmias admitted following out of hospital VT arrest which was terminated by his ICD.? He was admitted to the ICU for evaluation and management following this.? ?? Date of service 06/24/2022:? ? Patient is condition essentially unchanged clinically.? Remains intubated on ventilator support in the ICU.? Low dose of the Entresto started yesterday.? Seems to be tolerating that hemodynamically.? Diuresing well in the past 24 hours.? Unfortunately failed weaning trial again this morning.? Spoke to patient and family will likely need a tracheostomy in the near future because of ongoing ventilator dependency 06/25/2022: No acute events overnight. Condition remains unchanged. Remains intubated. Hemodynamics tolerating Entresto and beta marisela. ? 06/28/2022:? ? No new cardiovascular events patient patient is hemodynamically tolerating low doses of Entresto and beta-marisela.? Plans are place Friday for tracheostomy and PEG tube.? Patient unfortunately remains? unweanable from ventilator support Date of service 06/29/2022:? Awake and responsive but still ventilated.? Plan for tracheostomy on Friday.? No chest pain or shortness of breath Date of service 06/30/2022:? He is awake, responsive.? No chest pain.? Plan for trach tomorrow.? Appears to be back in atrial flutter Date of service 07/02/2022: EKG showing rate-controlled flutter. On heparin drip for DVT as well. Patient does follow commands now. Getting PEG today. Date of service 07/03/2022: Patient had quite the eventful afternoon yesterday. His trach tube ended up becoming displaced from the trachea. He then developed subcutaneous emphysema. ICU team ended up reintubating him. Then a new trach tube was placed at bedside by ENT. Patient now is stable this morning. No issues with the trach. Got PEG tube yesterday. Tele showing rate controlled flutter. Patient is awake this morning. He does shake his head yes or no when asked questions. Gives a thumbs up sign. Squeezes hand. Follows other commands easily. Date of service 07/04/2022: Following commands but not is alert but is on sedation. Rhythm still shows atrial fibrillation/flutter. No chest pain. Date of service 07/05/2022: Heavily sedated this point. And unresponsive. Still in atrial flutter Date of service 07/08/2022: Sedated. Restless night. In atrial flutter. No active complaints Date of service 07/10/2022: Another restless night. No chest pain. Confused R
--- NOTE | 2022-07-10 11:32 | PCFNICU ---
ICU Rounding Note: Pt current nutrition is Vital AF 1.2 at 65 ml/hr. Last recorded weight is 117 kg,. Bowel Motility: +Bm reported 07/07 Labs Reviewed: Glu 172, BUN 42, Hct 29.0,Hgb 8.6 Meds Noted:Precedex, Seroquel,Miralax, Protonix, Ativan, Lasix, Lantus, NovoLog, Lipitor, Eliquis Skin: Stage II Pressure Ulcer-buttock Additional Notes: Patient current with PEG and Trach. Tolerating tube feedings of Vital AF 1.2 at 65 ml/hr. Protein Modular of Shaan BID for wound healing providing an additional 90 kcals and 2.5 gms protein. Flush 200 ml q 4 hours. Na WNL today. Agree with diet orders. Plans for LTAC at discharge. Following daily in ICU rounds. follow up T/F monitor feeding tolerance, per policy gastric residual, wt and labs.
--- NOTE | 2022-07-10 11:49 | P.PNINT_ITS ---
Progress Note: A&P Assessment and Plan (1) Acute respiratory failure with hypoxia: Code(s): J96.01 - Acute respiratory failure with hypoxia Status: Acute Assessment and Plan: Acute respiratory failure likely related to cardiac arrest -patient was intubated ED on 06/11/2022 -patient was extubated on 06/19 after weaning trials for couple of days. After few hours patient became tachypneic, with increased work of breathing and respiratory distress. Patient was given additional dose of Lasix and was placed on BiPAP. On BiPAP patient initially improved later deteriorated and was reintubated on 06/19 Post extubation I did not hear any stridor on exam. Patient was wheezing and grunting but it was not inspiratory stridor. Later I was told by the nursing staff the patient was stridorous prior to re-intubation. Status post Solu- Medrol 06/21 -completed a course of Solu-Medrol. Cuff leak present today on exam. Failed PSV trial within minutes due to high RSBI. Placed on pressure support of 12/5. Continue as tolerated 06/22 -failed PSV weaning trial. Needs pressure support of 12/5 for adequate RSBI. Will continue as tolerated 06/23 -failed 5/8 PSV trial due to high RSBI. Requires 12/8 pressure support for adequate RSBI. Continue as tolerated 06/24 -failed weaning trial within minutes with high RSBI and respiratory distress. I increased pressure support up to 15 that did not help and patient's respiratory rate remained of 30 with visible use of accessory muscles and patient was in respiratory distress. 06/25: Failed pressure support, was started on ASV mode of ventilation, tolerated ASV all day long before he was switched to CMV for tachypnea and tachycardia 06/26: Patient tolerated pressure support ventilation 12/5 for about 2 hours, after that he was put on ASV all day long. Switched to CMV during night as he does not sleep in this start him on propofol so we can get some rest. -blood pressures are much improved this morning 06/27/2022: Patient did tolerate PSV 12/5 for roughly 2-1/2 hours and then was anxious, worked up because they had to clean him after his bowel movement and was placed on CMV mode of ventilation. Patient diuresed very well, chest x-ray with improvement on the right side. -06/29: patient diuresed well on 06/28, dropped his pressures was started on Levophed, will hold diuresis for now -06/30: Patient coughed if his ETT overnight, ETT was full of thick secretions, patient was re-intubated. 07/01-tracheostomy done 07/02-patient appeared to have dislodged his tracheostomy tube. He was mayo rgently reintubated and trach was removed. Patient had a new trach placed later in the evening by ENT 07/03, 07/04, 07/05 -placed on pressure support ventilation of 15/ 5. Continue as tolerated. He did not tolerate lower pressure support due to high RSBI 07/06 -pressure support decreased to 12/5. He did not tolerate lower pressure support at this time 07/07-FiO2 weaned down to 28%. Patient placed on 5/5 pressure support ventilation he tolerated for little bit but then patient got tachypneic and in distress. Pressure support was increased back to 15/5 through the day and later at night he was switched back to CMV. Overnight 07/08-patient was too sedated to tolerate pressure support yesterday during the day 1129 -chest x-ray reviewed IMPRESSION: 1. Diffuse lung disease with mild improvement, consistent with pulmonary edema versus pneumonia. 2. Possible small pleural effusions. 3. Cardiomegaly. 07/09: Patient tolerated PSV 5/5 all day. Was placed on CMV mode overnight. 07/10: Patient has been placed on PSV 5/5 since this morning and has been tolerating, will switch to ASV mode or CMV overnig
[2022-07-10 11:56] LABS: Glucose Point of Care 193 mg/dl (65-105)
[2022-07-10 18:11] LABS: Glucose Point of Care 172 mg/dl (65-105)
[2022-07-10] MEDS: INSULIN GLARGINE (*BKC) 100 UNITS/ML 45 UNITS SUB-Q (20:27)
[2022-07-11] VITALS (30 sets, daily range): BP systolic 90–147; BP diastolic 54–83; PULSE 59–96; RESP 16–26; TEMP 36.3–37.2; O2SAT 96–100
[2022-07-11] MEDS: MORPHINE SULFATE (*CRX) 4 MG/ML INJ IV PUSH ×2 (00:08→04:47)
[2022-07-11 00:09] LABS: Glucose Point of Care 148 mg/dl (65-105)
[2022-07-11] MEDS: IPRATROPIUM BR 0.02% INH SOLN 0.5 MG/2.5 ML VIAL INHALATION ×4 (02:30→20:34)
[2022-07-11] MEDS: ALBUTEROL SULFATE NEB 2.5 MG/3 ML INH INHALATION ×4 (02:30→20:34)
[2022-07-11 04:22] LABS: Basophils Percent Auto 0.3 % (0.2-1.2); Eosinophils Absolute Auto 0.5 K/mm3 (0-0.3); Eosinophils Percent Auto 5.8 % (0-4.4); Hematocrit 32.5 % (42.0-52.0); Hemoglobin 9.6 g/dL (14.0-18.0); Immature Granulocyte Absolute 0.08 K/mm3 (0.00-0.031); Immature Granulocyte Percent A 0.9 % (0-0.5); Lymphocytes Absolute Auto 0.81 K/mm3 (0.9-3.2); Lymphocytes Percent Auto 9.1 % (18.3-44.2); Mean Corpuscular HGB Conc 29.5 g/dl (32-36); Mean Corpuscular Hemoglobin 29.9 pg (26-34); Mean Corpuscular Volume 101.2 fl (80-100); Mean Platelet Volume 10.4 fl (7.4-10.4); Monocytes Absolute Auto 0.4 K/mm3 (0.1-0.6); Monocytes Percent Auto 4.9 % (2.6-8.5); Platelet Count Result 202 k/mm3 (150-375); Red Blood Count 3.21 M/mm3 (4.6-6.20); White Blood Count 8.9 K/mm3 (4.5-10.0)
[2022-07-11 04:29] LABS: Alanine Aminotransferase 22 U/L (6-50); Albumin Level 3.4 g/dL (3.5-5.1); Alkaline Phosphatase 133 U/L (38-126); Anion Gap 6 mmol/L (8-16); Aspartate Amino Transferase 23 U/L (17-59); Bilirubin,Total 0.7 mg/dL (0.2-1.3); Blood Urea Nitrogen 42 mg/dL (9-20); Calcium 9.1 mg/dL (8.4-10.2); Carbon Dioxide 36 mmol/L (22-30); Chloride 105 mmol/L (98-107); Estimated CRCL calculation 73 ml/min; Estimated Glomerular Filt Rate > 60; Glucose 110 mg/dL (65-110); Phosphorus 2.5 mg/dL (2.5-4.5); Sodium 147 mmol/L (137-145)
[2022-07-11 05:04] LABS: Platelet Estimate Adequate (Adequate)
[2022-07-11 05:06] LABS: Hypochromasia 1+ (NORMAL)
[2022-07-11 05:08] LABS: Ovalocytes 1+ (NORMAL); Schistocytes None Seen (NORMAL)
[2022-07-11 06:09] LABS: Alveolar/Arterial O2 Gradient 76.2 mmHg; Carboxyhemoglobin 0.3 % THb (0-2.0); Fractional Inspired Oxygen 30 %; Methemoglobin ABG 0.2 %THb (0-1.5); Oxygen Content ABG 14.3 %vol (16.0-22.0); Oxygen Saturation ABG 96.1 % (95.0-100.0); Oxyhemoglobin 94.7 % THb (90.0-100.0); PCO2 ABG 50.7 mmHg (35.0-45.0); PO2 ABG 78.1 mmHg (80.0-100.0); Reduced Hemoglobin 4.8 %THb (0-5.0); Total Hemoglobin 10.7 g/dL (12.0-18.0); pH ABG 7.481 (7.350-7.450)
[2022-07-11 06:10] LABS: Glucose Point of Care 89 mg/dl (65-105)
[2022-07-11 06:10] LABS: Arterial Blood Gas PEEP 5 cmH2O; Arterial Blood Gas Tidal Volume 400 ml; Arterial Blood Gas Vent Mode CMV; Arterial Blood Gas Ventilator rate 16 /MIN; Device VENTILATOR; Modified Allen's Test Pass; Site Drawn RIGHT RADIAL
[2022-07-11] MEDS: PANTOPRAZOLE SODIUM IV 40 MG VIAL IV PUSH ×2 (08:25→20:11)
[2022-07-11] MEDS: FUROSEMIDE INJ 40 MG/4 ML VIAL 20 MG IV PUSH (08:25)
[2022-07-11] MEDS: AMIODARONE HCL 200 MG TABLET 400 MG PO (09:30)
[2022-07-11] MEDS: QUEtiapine FUMARATE 25 MG TABLET 50 MG PO ×2 (09:31→20:11)
[2022-07-11] MEDS: APIXABAN 5 MG TABLET PO ×2 (09:31→20:11)
[2022-07-11] MEDS: ATORVASTATIN 40 MG TABLET PO (09:31)
[2022-07-11] MEDS: METOPROLOL SUCCINATE EXT REL 12.5 MG TABCR PO (09:31)
[2022-07-11] MEDS: MINERAL OIL/WHITE PETROLATUM OINTMENT 1 APPLIC EACH EYE ×2 (09:32→20:25)
[2022-07-11] MEDS: TOLNAFTATE 1% POWDER 45 GM BTL 1 APPLIC TOPICAL ×2 (09:32→20:52)
[2022-07-11] MEDS: SACUBITRIL/VALSARTAN 12-13 MG TABLET 1 TAB PO ×2 (09:32→20:29)
[2022-07-11] MEDS: polyethylene glycoL 3350 17 GM POWD.PACK PO (09:32)
--- NOTE | 2022-07-11 10:50 | PC.NURSE ---
G tube-- Replacement 20 [place] Right Angle Tube-- LOT [id number] Exp 12-18-22
--- NOTE | 2022-07-11 11:25 | PCFNICU ---
ICU Rounding Note: Pt current nutrition is Vital AF 1.2 at 20 ml/hr advancing as tolerated to goal rate of 65 ml/hr. Last recorded weight is 117 kg. Bowel Motility: +Bm reported 07/10 Labs Reviewed:BUN 42, Na 147, Alb 3.4 Meds Noted::Seroquel,Miralax, Protonix, Ativan, Lasix, Lantus, NovoLog, Lipitor, Eliquis Skin: State II Pressure Ulcer-buttock Additional Notes: Patient current with Trach/PEG. PEG pulled last night, reinserted. Tube feedings have resumed. Patient has been tolerating breathing trial today. Agree with tube feedings. Flush at 200 ml q 4 hours. Plans for LTAC today. Following daily in ICU rounds. monitor feeding tolerance, per policy gastric residual, wt and labs every Friday and Friday.
[2022-07-11 12:30] LABS: Glucose Point of Care 86 mg/dl (65-105)
--- NOTE | 2022-07-11 13:09 | WPDGIPROGNO ---
Progress Note: A&P Assessment and Plan (1) Gastrostomy tube dysfunction: Code(s): K94.23 - Gastrostomy malfunction Status: Acute Assessment and Plan: irving catheter was removed and I replaced for a 20F at the bedside, used same gastrostomy site without any problem then inflate balloon with 15ml water and secure in place ok to resume tube feeding again place an abdominal binder (patient has been confused and he pulled out previous g-tube) (2) Cardiac arrest with ventricular fibrillation: Code(s): I46.9 - Cardiac arrest, cause unspecified; I49.01 - Ventricular fibrillation Status: Acute (3) Respiratory failure: Code(s): J96.90 - Respiratory failure, unspecified, unspecified whether with hypoxia or hypercapnia Status: Acute Assessment and Plan: s/p trach still in icu (4) Hypoxic ischemic encephalopathy: Code(s): P91.60 - Hypoxic ischemic encephalopathy [HIE], unspecified Status: Acute (5) Delirium: Code(s): R41.0 - Disorientation, unspecified Status: Acute Subjective Date/time seen: 07/11/22 13:09 Interval history: I was called by RN after midnight because patient pulled out his G-tube, a temporary irving catheter was placed. Review of Systems Review of Systems: All systems reviewed & are unremarkable except as noted in HPI and below Exam Narrative: General: Trached and awake no acute distress HEENT:? Pupils equal and reactive, sclera is clear, trach in place Neck:? Supple Respiratory:? Coarse breath sounds bilaterally, decreased at bases, adequate air entry trach is in place with secretions around Cardiac:? Paced rhythm Abdomen:? Soft, nontender, nondistended, normoactive bowel sounds, protuberant/obese, Irving catheter in gastrostomy site Extremities:? 1+ edema left more than right, palpable pedal pulses Neuro:? patient is drowsy but arousable on stimulation. Nods appropriately and follows simple commands in all extremities Skin:? No lesions noted, warm and dry Psych:? Unable to assess at this time HEENT: Subcutaneous air in the neck has resolved Objective Data Vital Signs Vital Signs: Vital Signs - 24 hr 07/10/22 14:09 07/10/22 14:27 07/10/22 14:12 Temperature Pulse Rate 67 78 61 Respiratory Rate 22 H 20 Blood Pressure Pulse Oximetry 99 Oxygen Delivery Mechanical Ventilation Fraction of Inspired Oxygen 35 07/10/22 14:00 07/10/22 14:00 07/10/22 16:00 Temperature 98.5 F 98.3 F Pulse Rate 85 85 81 Respiratory Rate 20 22 H Blood Pressure 95/59 L 95/58 L Pulse Oximetry 100 100 Oxygen Delivery Fraction of Inspired Oxygen 07/10/22 17:05 07/10/22 16:00 07/10/22 16:00 Temperature Pulse Rate 92 83 Respiratory Rate Blood Pressure Pulse Oximetry 99 Oxygen Delivery Mechanical Ventilation Fraction of Inspired Oxygen 35 35 07/10/22 16:00 07/10/22 16:00 07/10/22 18:00 Temperature 98.5 F Pulse Rate 83 83 86 Respiratory Rate 22 H 22 H Blood Pressure 95/58 L Pulse Oximetry 100 100 Oxygen Delivery Mechanical Ventilation Fraction of Inspired Oxygen 35 07/10/22 18:00 07/10/22 20:00 07/10/22 20:00 Temperature 98.8 F Pulse Rate 86 86 86 Respiratory Rate 22 H 19 Blood Pressure 100/53 L 111/91 H Pulse Oximetry 100 100 Oxygen Delivery Fraction of Inspired Oxygen 07/10/22 20:00 07/10/22 20:00 07/10/22 21:00 Temperature Pulse Rate 86 85 Respiratory Rate 19 24 H Blood Pressure Pulse Oximetry 100 Oxygen Delivery Mechanical Ventilation Fraction of Inspired Oxygen 35 35 07/10/22 20:20 07/10/22 21:10 07/10/22 22:00 Temperature Pulse Rate 86 87 86 Respiratory Rate 20 Blood Pressure Pulse Oximetry 100 Oxygen Delivery Mechanical Ventilation Fraction of Inspired Oxygen 35 07/10/22 22:00 07/11/22 00:00 07/11/22 00:00 Temperature Pulse Rate 86 87 86 Respiratory Rate 21 H 21 H Blood Pressure 125/66 Pulse Oximetry 10
[2022-07-11] MEDS: hetaSTARCH 6%/NACL 500 ML 250 ML IV CONT (13:23)
--- NOTE | 2022-07-11 17:15 | PC.NURSE ---
Hematuria noted in urinary catheter tubing, patient noted to pull on catheter tubing. Catheter flushed, no clots noted. Urine now noted to be yellow, with pink tinge coloring. Will continue to monitor closely.
[2022-07-11 17:59] LABS: Glucose Point of Care 117 mg/dl (65-105)
[2022-07-11] MEDS: LORazepam INJ (*CRX) 2 MG/ML VIAL IV PUSH (20:10)
[2022-07-11] MEDS: INSULIN GLARGINE (*BKC) 100 UNITS/ML 45 UNITS SUB-Q (20:24)
[2022-07-11] MEDS: ALPRAZolam (*CRX) 0.5 MG TABLET 1 MG FEED TUBE (22:47)
[2022-07-12] VITALS (27 sets, daily range): BP systolic 90–128; BP diastolic 54–89; PULSE 63–91; RESP 14–28; TEMP 36.3–37.6; O2SAT 97–100
[2022-07-12 00:03] LABS: Glucose Point of Care 171 mg/dl (65-105)
[2022-07-12] MEDS: IPRATROPIUM BR 0.02% INH SOLN 0.5 MG/2.5 ML VIAL INHALATION ×4 (02:33→20:17)
[2022-07-12] MEDS: ALBUTEROL SULFATE NEB 2.5 MG/3 ML INH INHALATION ×4 (02:33→20:17)
[2022-07-12] MEDS: QUEtiapine FUMARATE 25 MG TABLET 50 MG PO ×2 (07:48→21:15)
[2022-07-12] MEDS: AMIODARONE HCL 200 MG TABLET 400 MG PO (07:48)
[2022-07-12] MEDS: METOPROLOL SUCCINATE EXT REL 12.5 MG TABCR PO (07:49)
[2022-07-12] MEDS: ATORVASTATIN 40 MG TABLET PO (07:49)
[2022-07-12] MEDS: APIXABAN 5 MG TABLET PO ×2 (07:49→21:15)
[2022-07-12] MEDS: PANTOPRAZOLE SODIUM IV 40 MG VIAL IV PUSH ×2 (07:50→21:16)
[2022-07-12] MEDS: MINERAL OIL/WHITE PETROLATUM OINTMENT 1 APPLIC EACH EYE ×2 (07:50→21:16)
[2022-07-12] MEDS: TOLNAFTATE 1% POWDER 45 GM BTL 1 APPLIC TOPICAL ×2 (07:51→21:16)
[2022-07-12] MEDS: SACUBITRIL/VALSARTAN 12-13 MG TABLET 1 TAB PO ×2 (07:51→21:15)
--- NOTE | 2022-07-12 09:21 | PCOTNOTE ---
Checked on patient to see for OT, patient not very arousable. Per RN, patient did not sleep much last night. Patient's daughter bedside to encourage patient participation, but patient did not rouse. Will try to see patient later today or continue plan of care for OT.
[2022-07-12 11:32] LABS: Glucose Point of Care 161 mg/dl (65-105)
--- NOTE | 2022-07-12 11:40 | PCNFU ---
Nutrition Follow-Up Complete: decreased nutrient needs related to NPO status as evidence by diet order goal: Meet estimated energy needs through TF Patient is meeting goal. We will continue current goal. Pt current nutrition is Vital AF 1.2 at 65 ml/hr Last recorded weight is 118 kg. Bowel Motility:+BM reported 07/12 Labs Reviewed:no labs to report Meds Noted:Seroquel,Miralax, Protonix, Ativan, Lasix, Lantus, NovoLog, Lipitor, Eliquis Skin: Stage II pressure ulcer-buttock Additional Notes:Patient is current with Trach/PEG. Tolerating tube feedings of Vital AF 1.2 at 65 ml/hr. Current tube feeding is providing 1716 kcals/107 gms protein/1160 ml water. Meeting 100% caloric and 100% protein needs at 15 kcal/kg. Flush 200 ml q 4 hours. Plans for LTAC at discharge. follow up T/F monitor feeding tolerance, per policy gastric residual, wt and labs
[2022-07-12 18:13] LABS: Glucose Point of Care 152 mg/dl (65-105)
[2022-07-12 21:10] LABS: Glucose Point of Care 136 mg/dl (65-105)
[2022-07-12] MEDS: ALPRAZolam (*CRX) 0.5 MG TABLET PO (21:15)
[2022-07-12] MEDS: INSULIN GLARGINE (*BKC) 100 UNITS/ML 45 UNITS SUB-Q (21:16)
[2022-07-13] VITALS (27 sets, daily range): BP systolic 98–115; BP diastolic 50–94; PULSE 63–87; RESP 14–29; TEMP 36.6–37.4; O2SAT 95–100
[2022-07-13 00:10] LABS: Glucose Point of Care 166 mg/dl (65-105)
[2022-07-13] MEDS: ALBUTEROL SULFATE NEB 2.5 MG/3 ML INH INHALATION ×4 (02:13→20:33)
[2022-07-13] MEDS: IPRATROPIUM BR 0.02% INH SOLN 0.5 MG/2.5 ML VIAL INHALATION ×4 (02:13→20:32)
[2022-07-13 06:02] LABS: Glucose Point of Care 158 mg/dl (65-105)
[2022-07-13] MEDS: APIXABAN 5 MG TABLET PO ×2 (08:02→20:51)
[2022-07-13] MEDS: ATORVASTATIN 40 MG TABLET PO (08:02)
[2022-07-13] MEDS: QUEtiapine FUMARATE 25 MG TABLET 50 MG PO ×2 (08:02→20:51)
[2022-07-13] MEDS: AMIODARONE HCL 200 MG TABLET 400 MG PO (08:02)
[2022-07-13] MEDS: PANTOPRAZOLE SODIUM IV 40 MG VIAL IV PUSH ×2 (08:03→20:51)
[2022-07-13] MEDS: METOPROLOL SUCCINATE EXT REL 12.5 MG TABCR PO (08:04)
[2022-07-13] MEDS: SACUBITRIL/VALSARTAN 12-13 MG TABLET 1 TAB PO ×2 (08:05→20:51)
[2022-07-13] MEDS: TOLNAFTATE 1% POWDER 45 GM BTL 1 APPLIC TOPICAL ×2 (08:05→20:51)
[2022-07-13 11:44] LABS: Glucose Point of Care 172 mg/dl (65-105)
[2022-07-13 18:01] LABS: Glucose Point of Care 171 mg/dl (65-105)
[2022-07-13 20:34] LABS: Glucose Point of Care 182 mg/dl (65-105)
[2022-07-13] MEDS: ALPRAZolam (*CRX) 0.5 MG TABLET PO (20:51)
[2022-07-13] MEDS: MINERAL OIL/WHITE PETROLATUM OINTMENT 1 APPLIC EACH EYE (20:51)
[2022-07-13] MEDS: INSULIN GLARGINE (*BKC) 100 UNITS/ML 45 UNITS SUB-Q (20:52)
[2022-07-14] VITALS (35 sets, daily range): BP systolic 74–121; BP diastolic 46–80; PULSE 65–106; RESP 16–25; TEMP 36.6–37.4; O2SAT 96–100
[2022-07-14] LABS: Glucose Point of Care 169 mg/dl (65-105)
[2022-07-14] MEDS: MORPHINE SULFATE (*CRX) 4 MG/ML INJ IV PUSH ×2 (00:51→03:40)
[2022-07-14] MEDS: ALBUTEROL SULFATE NEB 2.5 MG/3 ML INH INHALATION ×4 (02:29→20:57)
[2022-07-14] MEDS: IPRATROPIUM BR 0.02% INH SOLN 0.5 MG/2.5 ML VIAL INHALATION ×4 (02:29→20:57)
[2022-07-14 04:56] LABS: Basophils Absolute Auto 0.1 K/mm3 (0.0-0.1); Basophils Percent Auto 0.4 % (0.2-1.2); Eosinophils Absolute Auto 0.3 K/mm3 (0-0.3); Eosinophils Percent Auto 2.8 % (0-4.4); Hematocrit 28.8 % (42.0-52.0); Hemoglobin 8.6 g/dL (14.0-18.0); Immature Granulocyte Absolute 0.09 K/mm3 (0.00-0.031); Immature Granulocyte Percent A 0.8 % (0-0.5); Immature Platelet Fraction Pct 7.9 % (0.9-11.2); Lymphocytes Absolute Auto 0.64 K/mm3 (0.9-3.2); Lymphocytes Percent Auto 5.7 % (18.3-44.2); Mean Corpuscular HGB Conc 29.9 g/dl (32-36); Mean Corpuscular Hemoglobin 30.3 pg (26-34); Mean Corpuscular Volume 101.4 fl (80-100); Monocytes Absolute Auto 0.5 K/mm3 (0.1-0.6); Monocytes Percent Auto 4.8 % (2.6-8.5); Neutrophils Absolute Auto 9.6 K/mm3 (1.3-6.7); Neutrophils Percent Auto 85.5 % (45.5-73.1); Red Blood Count 2.84 M/mm3 (4.6-6.20); Red Cell Distribution Width 13.9 % (11.5-14.5); White Blood Count 11.3 K/mm3 (4.5-10.0)
[2022-07-14 05:07] LABS: Alanine Aminotransferase 26 U/L (6-50); Alkaline Phosphatase 122 U/L (38-126); Anion Gap 6 mmol/L (8-16); Aspartate Amino Transferase 28 U/L (17-59); Bilirubin,Total 0.5 mg/dL (0.2-1.3); Blood Urea Nitrogen 45 mg/dL (9-20); Calcium 8.5 mg/dL (8.4-10.2); Carbon Dioxide 31 mmol/L (22-30); Chloride 101 mmol/L (98-107); Estimated CRCL calculation 65 ml/min; Estimated Glomerular Filt Rate > 60; Glucose 167 mg/dL (65-110); Phosphorus 3.4 mg/dL (2.5-4.5); Potassium 4.1 mmol/L (3.4-5.0); Sodium 138 mmol/L (137-145)
[2022-07-14 05:16] LABS: Alveolar/Arterial O2 Gradient 89.8 mmHg; Base Excess ABG 7.7 mEq/l (+/-2.0); Carboxyhemoglobin 0.3 % THb (0-2.0); Fractional Inspired Oxygen 30 %; HCO3 ABG 33.5 mEq/l (22.0-26.0); Methemoglobin ABG 0.4 %THb (0-1.5); Oxygen Saturation ABG 91.5 % (95.0-100.0); Oxyhemoglobin 90.9 % THb (90.0-100.0); PCO2 ABG 53.4 mmHg (35.0-45.0); PO2 ABG 61.4 mmHg (80.0-100.0); PO2 FiO2 Ratio Arterial Blood 2.05 %; Reduced Hemoglobin 8.4 %THb (0-5.0); Total Hemoglobin 10.9 g/dL (12.0-18.0); pH ABG 7.416 (7.350-7.450)
[2022-07-14 05:17] LABS: Device VENTILATOR; Modified Allen's Test Unable to perform; Site Drawn RIGHT RADIAL
[2022-07-14 05:18] LABS: Arterial Blood Gas PEEP 5 cmH2O; Arterial Blood Gas Vent Mode PRESSURE SUPPORT
[2022-07-14 05:19] LABS: Arterial Blood Gas Pressure Support 5 cmH2O
[2022-07-14] MEDS: MORPHINE SULFATE (*CRX) 2 MG/ML INJ IV PUSH (07:36)
[2022-07-14] MEDS: AMIODARONE HCL 200 MG TABLET 400 MG PO (07:37)
[2022-07-14] MEDS: QUEtiapine FUMARATE 25 MG TABLET 50 MG PO ×2 (07:37→20:31)
[2022-07-14] MEDS: FUROSEMIDE INJ 40 MG/4 ML VIAL 20 MG IV PUSH (08:21)
[2022-07-14] MEDS: ATORVASTATIN 40 MG TABLET PO (08:21)
[2022-07-14] MEDS: SACUBITRIL/VALSARTAN 12-13 MG TABLET 1 TAB PO ×2 (08:21→20:31)
[2022-07-14] MEDS: PANTOPRAZOLE SODIUM IV 40 MG VIAL IV PUSH ×2 (08:22→20:30)
[2022-07-14] MEDS: polyethylene glycoL 3350 17 GM POWD.PACK PO (08:22)
[2022-07-14] MEDS: APIXABAN 5 MG TABLET PO ×2 (08:22→20:31)
[2022-07-14] MEDS: METOPROLOL SUCCINATE EXT REL 12.5 MG TABCR PO (08:23)
[2022-07-14] MEDS: MINERAL OIL/WHITE PETROLATUM OINTMENT 1 APPLIC EACH EYE ×2 (08:23→20:30)
[2022-07-14] MEDS: TOLNAFTATE 1% POWDER 45 GM BTL 1 APPLIC TOPICAL ×2 (08:23→20:30)
--- NOTE | 2022-07-14 09:22 | WPDINTPN ---
Progress Note: A&P Assessment and Plan (1) Acute respiratory failure with hypoxia: Code(s): J96.01 - Acute respiratory failure with hypoxia Status: Acute Assessment and Plan: Acute respiratory failure likely related to cardiac arrest -patient was intubated ED on 06/11/2022 -patient was extubated on 06/19 after weaning trials for couple of days. After few hours patient became tachypneic, with increased work of breathing and respiratory distress. Patient was given additional dose of Lasix and was placed on BiPAP. On BiPAP patient initially improved later deteriorated and was reintubated on 06/19 Post extubation I did not hear any stridor on exam. Patient was wheezing and grunting but it was not inspiratory stridor. Later I was told by the nursing staff the patient was stridorous prior to re-intubation. Status post Solu-Medrol -06/30: Patient coughed if his ETT overnight, ETT was full of thick secretions, patient was re-intubated. 07/01-tracheostomy done 07/02-patient appeared to have dislodged his tracheostomy tube. He was emergently reintubated and trach was removed. Patient had a new trach placed later in the evening by ENT 07/09: Patient tolerated PSV 5/5 all day. Was placed on CMV mode overnight. 07/10: Patient has been placed on PSV 5/5 since this morning and has been tolerating, will switch to ASV mode or CMV overnight 07/12: Patient has been on pressure support 5/5 all day all night continue bronchodilators (Atrovent and ipratropium) S/P Unasyn for a 10 day course. DC vancomycin 06/21 Blood pressures have been better, will diurese patient -chest x-ray this morning: Persistent diffuse bilateral airspace disease which may represent edema and/or pneumonia -increased pressure support to 10/8 on 07/14 -continue diuresis (2) Cardiac arrest with ventricular fibrillation: Code(s): I46.9 - Cardiac arrest, cause unspecified; I49.01 - Ventricular fibrillation Status: Acute Assessment and Plan: Patient presented with VFib arrest, ROSC within 15 minutes after EMS arrived and started CPR, (total down time was about 25 minutes.) -patient status post target temperature management, -elevated troponins likely related to cardiac arrest -post target temperature management he is following simple commands with all 4 extremities 06/16/2022: Patient had slow VFib/V-tach with no ICD discharge, requiring defibrillation x1, electrolytes were within normal limits patient was given amiodarone bolus and started on amiodarone infusion,. Cardiology was present during the episode. Cardiology going to evaluate AICD discharge thresholds Cardiology has switched amiodarone infusion to p.o. amiodarone now 06/14/2022 echocardiogram showed LV chamber dimension is severely enlarged, severely reduced LV systolic function with EF of 25-30%, mild aortic valve sclerosis, trace mitral valve regurg left atrial chamber dimension is mildly enlarged. (3) Acute kidney injury: Code(s): N17.9 - Acute kidney failure, unspecified Status: Acute Assessment and Plan: Patient with acute kidney injury likely related cardiac arrest, diuretics Patient presented with elevated creatinine but improved with IV fluids Creatinine improved to normal range Continue Lasix Continue to monitor renal function, electrolytes and urine output (4) DM type 2 (diabetes mellitus, type 2): Qualifiers: Diabetes mellitus detention insulin use: without detention use Diabetes mellitus complication status: without complication Qualified Code(s): E11.9 - Type 2 diabetes mellitus without complications Code(s): E11.9 - Type 2 diabetes mellitus without complications Status: Acute Assessment and Plan: Patient was significantly hyperglycemic on admission, was placed on insulin infusion which is currently off Continue Accu-Cheks and sliding scale insulin. Changed to q.4 hours Continue Lantus (5) Nonischemic cardiom
[2022-07-14] MEDS: hetaSTARCH 6%/NACL 500 ML 250 ML IV CONT (10:12)
[2022-07-14 11:11] LABS: Glucose Point of Care 170 mg/dl (65-105)
[2022-07-14] MEDS: ONDANSETRON INJ 4 MG/2 ML VIAL IV PUSH (11:29)
[2022-07-14] MEDS: SODIUM CHLORIDE 0.9% IV 500 ML IV CONT (12:49)
[2022-07-14] MEDS: ALBUMIN HUMAN 25% 25 GM/100 ML 100 ML IVPB ×3 (12:50→23:58)
[2022-07-14] MEDS: CENTRAL LINE FLUSH 10 ML IV PUSH ×2 (15:53→20:30)
[2022-07-14 17:13] LABS: Glucose Point of Care 156 mg/dl (65-105)
[2022-07-14] MEDS: NOREPINEPHRINE 8 MG/D5W 250 ML 8 MG/250 ML BAG 9.38 MG IV CONT (18:13)
[2022-07-14] MEDS: INSULIN GLARGINE (*BKC) 100 UNITS/ML 45 UNITS SUB-Q (20:27)
[2022-07-14 21:03] LABS: Glucose Point of Care 163 mg/dl (65-105)
[2022-07-14] MEDS: ALPRAZolam (*CRX) 0.5 MG TABLET PO (21:55)
[2022-07-15] VITALS (33 sets, daily range): BP systolic 79–118; BP diastolic 44–76; PULSE 69–96; RESP 14–22; TEMP 36.6–37.3; O2SAT 95–100
[2022-07-15 00:09] LABS: Glucose Point of Care 145 mg/dl (65-105)
[2022-07-15] MEDS: ALBUTEROL SULFATE NEB 2.5 MG/3 ML INH INHALATION ×4 (02:29→20:02)
[2022-07-15] MEDS: IPRATROPIUM BR 0.02% INH SOLN 0.5 MG/2.5 ML VIAL INHALATION ×4 (02:29→20:02)
[2022-07-15] MEDS: CENTRAL LINE FLUSH 10 ML IV PUSH ×4 (04:52→20:32)
[2022-07-15 05:12] LABS: Hematocrit 24.1 % (42.0-52.0); Mean Corpuscular HGB Conc 29.5 g/dl (32-36); Mean Corpuscular Hemoglobin 29.6 pg (26-34); Mean Corpuscular Volume 100.4 fl (80-100); Mean Platelet Volume 10.7 fl (7.4-10.4); Platelet Count Result 191 k/mm3 (150-375); Red Cell Distribution Width 14.5 % (11.5-14.5); White Blood Count 9.1 K/mm3 (4.5-10.0)
[2022-07-15 05:17] LABS: Hemoglobin 7.1 g/dL (14.0-18.0)
[2022-07-15] MEDS: ALBUMIN HUMAN 25% 25 GM/100 ML 100 ML IVPB (05:27)
[2022-07-15 05:30] LABS: Alanine Aminotransferase 23 U/L (6-50); Albumin Level 3.1 g/dL (3.5-5.1); Alkaline Phosphatase 92 U/L (38-126); Anion Gap 5 mmol/L (8-16); Aspartate Amino Transferase 26 U/L (17-59); Bilirubin,Total 0.7 mg/dL (0.2-1.3); Blood Urea Nitrogen 76 mg/dL (9-20); Calcium 8.5 mg/dL (8.4-10.2); Carbon Dioxide 33 mmol/L (22-30); Chloride 101 mmol/L (98-107); Estimated CRCL calculation 29 ml/min; Estimated Glomerular Filt Rate 28; Glucose 158 mg/dL (65-110); Phosphorus 3.5 mg/dL (2.5-4.5); Potassium 4.4 mmol/L (3.4-5.0); Sodium 139 mmol/L (137-145)
[2022-07-15 08:15] LABS: Alveolar/Arterial O2 Gradient 60.9 mmHg; Base Excess ABG 8.3 mEq/l (+/-2.0); Fractional Inspired Oxygen 30 %; HCO3 ABG 33.4 mEq/l (22.0-26.0); Oxygen Content ABG 11.5 %vol (16.0-22.0); Oxygen Saturation ABG 97.3 % (95.0-100.0); Oxyhemoglobin 95.7 % THb (90.0-100.0); PCO2 ABG 50.3 mmHg (35.0-45.0); PO2 ABG 93.9 mmHg (80.0-100.0); PO2 FiO2 Ratio Arterial Blood 3.13 %; Total Hemoglobin 8.4 g/dL (12.0-18.0)
[2022-07-15 08:16] LABS: Arterial Blood Gas PEEP 5 cmH2O; Arterial Blood Gas Tidal Volume 400 ml; Arterial Blood Gas Vent Mode CMV; Arterial Blood Gas Ventilator rate 16 /MIN; Device VENTILATOR; Modified Allen's Test Pass; Site Drawn LEFT RADIAL
[2022-07-15] MEDS: PANTOPRAZOLE SODIUM IV 40 MG VIAL IV PUSH ×2 (08:28→20:33)
[2022-07-15] MEDS: AMIODARONE HCL 200 MG TABLET 400 MG PO (08:29)
[2022-07-15] MEDS: ATORVASTATIN 40 MG TABLET PO (08:29)
[2022-07-15] MEDS: QUEtiapine FUMARATE 25 MG TABLET 50 MG PO ×2 (08:29→20:33)
[2022-07-15] MEDS: SACUBITRIL/VALSARTAN 12-13 MG TABLET 1 TAB PO (08:29)
[2022-07-15] MEDS: MINERAL OIL/WHITE PETROLATUM OINTMENT 1 APPLIC EACH EYE ×2 (08:29→20:33)
[2022-07-15] MEDS: TOLNAFTATE 1% POWDER 45 GM BTL 1 APPLIC TOPICAL ×2 (08:30→20:31)
[2022-07-15 08:33] LABS: Lactic Acid Reflex 1.1 mmol/L (0.7-2.0)
[2022-07-15] MEDS: SODIUM CHLORIDE 0.9% IV 1,000 ML 999 ML IV CONT (08:48)
[2022-07-15 10:01] LABS: Mucus Urine Rare /lpf; RBC Urine >75 /hpf (0-2); Squamous Epithelial Cell Urine Moderate /hpf (Few); WBC Clumps Urine Present /HPF; WBC Urine >75 /hpf
[2022-07-15 10:22] LABS: Add Urine Microscopic? YES; Appearance Urine Turbid (Clear); Color Urine Brown (Yellow)
[2022-07-15 10:23] LABS: Eosinophil Urine None Seen % (None Seen)
[2022-07-15 11:14] LABS: Creatinine Urine 88.1 mg/dL
[2022-07-15 11:16] LABS: Potassium Urine Random 35.2 meq/L; Sodium Urine Random 22 meq/L
[2022-07-15] MEDS: SODIUM CHLORIDE 0.9% IV 1,000 ML 75 ML IV CONT (11:25)
--- NOTE | 2022-07-15 11:27 | PCFNICU ---
ICU Rounding Note: Pt current nutrition is Vital 1.2 @ 65 ml/h with flushes 30 ml q 4 h. Shaan flushes BID for wound healing. Nutrition recommendation: Agree with current tube feeding orders, continue current orders Last recorded weight is 116.7 kg. Bowel Motility:+ 1 BM 12/5 Labs Reviewed: Hgb 7.1, Hct 24.1, Alb 3.1, BUN 76, Creat 2.3 Meds Noted: No sedation, xanax only. Back on Levophed @ 5 mcg/min Skin: Stage 2 Kris buttocks. Additional Notes: Communication with re: pressors, no need to decrease TF to trickle feed at this time.Continue same orders. Following daily in ICU rounds. follow up T/F monitor feeding tolerance, per policy gastric residual, wt and labs.
[2022-07-15 12:07] LABS: Glucose Point of Care 179 mg/dl (65-105)
--- NOTE | 2022-07-15 12:23 | PM.CNNEP ---
Assessment and Plan Assessment and plan (1) Acute kidney injury: Code(s): N17.9 - Acute kidney failure, unspecified Status: Acute Assessment and Plan: patient has low urine output and an elevated creatinine. His ultrasound shows an exophytic mass, possibly cancer. However does not show any acute changes that would cause the renal insufficiency. Urine electrolytes were done and do show pre renal azotemia. UA has some white cells in it. This happened after he developed hypotension yesterday. It is possible that he has pre renal azotemia due to low blood pressure. He also has a recent drop in his hemoglobin down to 7.1 which could contribute to this as well. Infection is always a possibility. Obstruction is ruled out by the ultrasound. This is happening too fast to be allergic interstitial nephritis. At this point I agree with gingerly giving him IV fluids and treating the blood pressure. Hopefully renal function will improve soon (2) Hypotension: Code(s): I95.9 - Hypotension, unspecified Status: Acute Assessment and Plan: blood pressure is low. Hemoglobin is down a little bit but not enough to cause low blood pressure I do not think. He is on Furosemide, metoprolol and Entresto and these have been held. blood , urine, and sputum cultures have been done.. He does not have a fever and his white cell count is not elevated. It does not look toxic right now. (3) Cardiac arrest with ventricular fibrillation: Code(s): I46.9 - Cardiac arrest, cause unspecified; I49.01 - Ventricular fibrillation Status: Acute Assessment and Plan: This was his admitting issue. He has not had no rest lately. (4) Respiratory failure: Code(s): J96.90 - Respiratory failure, unspecified, unspecified whether with hypoxia or hypercapnia Status: Acute Assessment and Plan: He remains on the ventilator. (5) Anemia: Code(s): D64.9 - Anemia, unspecified Status: Acute Plan hemoglobin is down a bit. Will check stool guaiacs History of Present Illness Reason for Consult Consult date: 07/15/22 Chief Complaint Chief complaint: V FIB ARREST, Pulmonary Edema History of Present Illness Narrative: Kenny is a very pleasant 77-year-old gentleman who has multiple medical problems including congestive heart failure with an ejection fraction of around 25-30%, atrial flutter, nonischemic cardiomyopathy, AICD in place, moderate aortic stenosis, chronic kidney disease although his baseline creatinine has been normal, hypertension, hyperlipidemia, and vitamin-D deficiency. The patient was admitted on the 1st with cardiac arrest. 911 was called. Is found to be in VFib in the field. He was intubated and also shocked by his AICD. The patient was seen in the emergency room and moved to the ICU after stabilization.. He has had a long course after that having failed extubation and ended up with a tracheostomy. Over the last few days he has been applying for LTAC spot at [facility] in [place]. Yesterday the patient dropped his blood pressure and required Levophed. An output decreased overnight and his creatinine has risen so renal consultation was requested. He has received some albumin and intermittent saline infusions to try to bring the blood pressure up. He is still on the Levophed. The patient is awake and can communicate. His and sister are also in the room. He says he is breathing okay right now. He is not having any chest pain. No belly issues. Review of Systems Constitutional: Constitutional: Reports no additional constitutional complaints Eyes: Eyes: Reports no additional eye complaints ENT: Reports system reviewed and no additional complaints, except as documented Cardiovascular: Cardiovascular: Reports no additional cardiovascular complaints Respiratory: Respiratory: Reports no additional respiratory complaints Olivier
--- NOTE | 2022-07-15 12:32 | WPDINTPN ---
Progress Note: A&P Assessment and Plan (1) Sepsis: Code(s): A41.9 - Sepsis, unspecified organism Status: Acute Assessment and Plan: Blood urine and sputum cultures sent on 06/17 negative till now Was On vancomycin and Unasyn 06/21 -DC vancomycin S/p 10 days of Unasyn Low procalcitonin -07/14/2022: Septic shock: WBC count trending up, patient is afebrile, chest x-ray shows bilateral diffuse infiltrates -obtain sputum culture -hold antibiotics for now -remains on Levophed, maintain mean arterial pressures >65 mmHg for adequate end organ in renal perfusion -kidney functions has worsened -will give IV fluid bolus and maintenance IV fluids -07/15/2022 blood, urine and sputum cultures have been obtained and pending -07/14/2022 sputum cultures 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 After few hours patient became tachypneic, with increased work of breathing and respiratory distress. Patient was given additional dose of Lasix and was placed on BiPAP. On BiPAP patient initially improved later deteriorated and was reintubated on 06/19 Post extubation I did not hear any stridor on exam. Patient was wheezing and grunting but it was not inspiratory stridor. Later I was told by the nursing staff the patient was stridorous prior to re-intubation. Status post Solu-Medrol -06/30: Patient coughed if his ETT overnight, ETT was full of thick secretions, patient was re-intubated. 07/01-tracheostomy done 07/02-patient appeared to have dislodged his tracheostomy tube. He was emergently reintubated and trach was removed. Patient had a new trach placed later in the evening by ENT 07/09: Patient tolerated PSV 5/5 all day. Was placed on CMV mode overnight. 07/10: Patient has been placed on PSV 5/5 since this morning and has been tolerating, will switch to ASV mode or CMV overnight 07/12: Patient has been on pressure support 5/5 all day all night continue bronchodilators (Atrovent and ipratropium) S/P Unasyn for a 10 day course. DC vancomycin 06/21 Blood pressures have been better, will diurese patient -chest x-ray this morning: Congestive heart failure, mildly improved since 07/2022? -currently on CMV mode of ventilation, peep of 5 on 30% FiO2 -hold diuresis patient on pressors (3) Cardiac arrest with ventricular fibrillation: Code(s): I46.9 - Cardiac arrest, cause unspecified; I49.01 - Ventricular fibrillation Status: Acute Assessment and Plan: Patient presented with VFib arrest, ROSC within 15 minutes after EMS arrived and started CPR, (total down time was about 25 minutes.) -patient status post target temperature management, -elevated troponins likely related to cardiac arrest -post target temperature management he is following simple commands with all 4 extremities 06/16/2022: Patient had slow VFib/V-tach with no ICD discharge, requiring defibrillation x1, electrolytes were within normal limits patient was given amiodarone bolus and started on amiodarone infusion,. Cardiology was present during the episode. Cardiology going to evaluate AICD discharge thresholds Cardiology has switched amiodarone infusion to p.o. amiodarone now 06/14/2022 echocardiogram showed LV chamber dimension is severely enlarged, severely reduced LV systolic function with EF of 25-30%, mild aortic valve sclerosis, trace mitral valve regurg left atrial chamber dimension is mildly enlarged. (4) Acute kidney injury: Code(s): N17.9 - Acute kidney failure, unspecified Status: Acute Assessment and Plan: Patient with acute kidney injury likely related cardiac arrest, diuretics Patient present
[2022-07-15 18:46] LABS: Glucose Point of Care 198 mg/dl (65-105)
[2022-07-15] MEDS: INSULIN GLARGINE (*BKC) 100 UNITS/ML 45 UNITS SUB-Q (20:31)
[2022-07-15] MEDS: ALPRAZolam (*CRX) 0.5 MG TABLET PO (20:34)
[2022-07-15 20:52] LABS: Glucose Point of Care 178 mg/dl (65-105)
[2022-07-15 21:24] LABS: IFOB Positive Control Positive; Immunochemical Fecal Occult Bl Positive (N)
[2022-07-15] MEDS: NOREPINEPHRINE 8 MG/D5W 250 ML 8 MG/250 ML BAG 7.5 MG IV CONT (22:26)
[2022-07-16] VITALS (30 sets, daily range): BP systolic 86–134; BP diastolic 48–89; PULSE 63–98; RESP 17–27; TEMP 36.8–37.3; O2SAT 96–100
[2022-07-16 00:12] LABS: Glucose Point of Care 188 mg/dl (65-105)
[2022-07-16] MEDS: IPRATROPIUM BR 0.02% INH SOLN 0.5 MG/2.5 ML VIAL INHALATION ×4 (01:29→20:17)
[2022-07-16] MEDS: ALBUTEROL SULFATE NEB 2.5 MG/3 ML INH INHALATION ×4 (01:29→20:17)
[2022-07-16] MEDS: CENTRAL LINE FLUSH 10 ML IV PUSH ×3 (05:45→21:19)
[2022-07-16 06:08] LABS: Hematocrit 25.2 % (42.0-52.0); Hemoglobin 7.8 g/dL (14.0-18.0); Mean Corpuscular Hemoglobin 30.6 pg (26-34); Mean Corpuscular Volume 98.8 fl (80-100); Mean Platelet Volume 10.9 fl (7.4-10.4); Platelet Count Result 226 k/mm3 (150-375); Red Blood Count 2.55 M/mm3 (4.6-6.20); Red Cell Distribution Width 14.5 % (11.5-14.5); White Blood Count 9.1 K/mm3 (4.5-10.0)
[2022-07-16 06:23] LABS: Albumin Level 3.2 g/dL (3.5-5.1); Anion Gap 6 mmol/L (8-16); Blood Urea Nitrogen 94 mg/dL (9-20); Calcium 8.6 mg/dL (8.4-10.2); Carbon Dioxide 29 mmol/L (22-30); Chloride 103 mmol/L (98-107); Estimated CRCL calculation 36 ml/min; Estimated Glomerular Filt Rate 34; Glucose 169 mg/dL (65-110); Phosphorus 2.7 mg/dL (2.5-4.5); Potassium 4.4 mmol/L (3.4-5.0); Sodium 138 mmol/L (137-145)
[2022-07-16 06:25] LABS: Alanine Aminotransferase 22 U/L (6-50); Albumin Level 3.3 g/dL (3.5-5.1); Alkaline Phosphatase 108 U/L (38-126); Anion Gap 5 mmol/L (8-16); Aspartate Amino Transferase 26 U/L (17-59); Bilirubin,Total 0.7 mg/dL (0.2-1.3); Blood Urea Nitrogen 93 mg/dL (9-20); Calcium 8.6 mg/dL (8.4-10.2); Carbon Dioxide 29 mmol/L (22-30); Chloride 103 mmol/L (98-107); Estimated CRCL calculation 36 ml/min; Estimated Glomerular Filt Rate 34; Glucose 167 mg/dL (65-110); Magnesium 2.1 mg/dL (1.6-2.3); Phosphorus 2.7 mg/dL (2.5-4.5); Potassium 4.4 mmol/L (3.4-5.0); Sodium 137 mmol/L (137-145)
[2022-07-16] MEDS: QUEtiapine FUMARATE 25 MG TABLET 50 MG PO ×2 (08:30→21:18)
[2022-07-16] MEDS: TOLNAFTATE 1% POWDER 45 GM BTL 1 APPLIC TOPICAL ×2 (08:30→21:17)
[2022-07-16] MEDS: MINERAL OIL/WHITE PETROLATUM OINTMENT 1 APPLIC EACH EYE ×2 (08:30→21:16)
[2022-07-16] MEDS: PANTOPRAZOLE SODIUM IV 40 MG VIAL IV PUSH ×2 (08:30→21:17)
[2022-07-16] MEDS: ATORVASTATIN 40 MG TABLET PO (08:30)
[2022-07-16] MEDS: AMIODARONE HCL 200 MG TABLET 400 MG PO (08:30)
--- NOTE | 2022-07-16 11:35 | PCNFU ---
Nutrition Follow-Up Complete: decreased nutrient needs related to NPO status as evidence by diet order Goal: Meet estimated energy needs through TF Patient is meeting goal. We will continue current goal. Pt current nutrition is Vital AF 1.2 at 65 ml/hr. Last recorded weight is 118.6 kg. Bowel Motility:+Bm reported 07/16 Labs Reviewed:Glu 167, BUN 93, Cr 1.9, Alb 3.3,Hct 25.2,Hgb 7.8 Meds Noted:Seroquel,Levophed, Protonix, Ativan, Lasix, Lantus, NovoLog, Lipitor, Eliquis Skin: State II PU-buttock Additional Notes: Patient is current with Trach and PEG. Tolerating tube feedings of Vital AF 1.2 at 65 ml/hr. Protein Modular of Shaan BID given for wound healing, providing an additional 90 kcals and 2.5 gms protein. Totol kcal intake: 1896 kcals/107 gms protein/1160 ml water. Meeting 100% kcal at 15 kcal/kg. 100% protein needs at 1.6 gm/kg protein needs. Flush 200 ml q 4 hours. Agree with diet orders. follow up T/F monitor feeding tolerance, per policy gastric residual, wt and labs
[2022-07-16 12:14] LABS: Glucose Point of Care 145 mg/dl (65-105)
--- NOTE | 2022-07-16 13:31 | P.PNINT_ITS ---
Progress Note: A&P Assessment and Plan (1) Sepsis: Code(s): A41.9 - Sepsis, unspecified organism Status: Acute Assessment and Plan: Blood urine and sputum cultures sent on 06/17 negative till now Was On vancomycin and Unasyn 06/21 -DC vancomycin S/p 10 days of Unasyn Low procalcitonin -07/14/2022: Septic shock: WBC count trending up, patient is afebrile, chest x-ray shows bilateral diffuse infiltrates -obtain sputum culture -hold antibiotics for now -remains on Levophed, maintain mean arterial pressures >65 mmHg for adequate end organ in renal perfusion -urine output and kidney function improving -will give IV fluid bolus and maintenance IV fluids -07/15/2022 blood, urine and sputum cultures have been obtained and pending -07/14/2022 sputum cultures 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 After few hours patient became tachypneic, with increased work of breathing and respiratory distress. Patient was given additional dose of Lasix and was placed on BiPAP. On BiPAP patient initially improved later deteriorated and was reintubated on 06/19 Post extubation I did not hear any stridor on exam. Patient was wheezing and grunting but it was not inspiratory stridor. Later I was told by the nursing staff the patient was stridorous prior to re-intubation. Status post Solu- Medrol -06/30: Patient coughed if his ETT overnight, ETT was full of thick secretions, patient was re-intubated. 07/01-tracheostomy done 07/02-patient appeared to have dislodged his tracheostomy tube. He was emergently reintubated and trach was removed. Patient had a new trach placed later in the evening by ENT 07/09: Patient tolerated PSV 5/5 all day. Was placed on CMV mode overnight. 07/10: Patient has been placed on PSV 5/5 since this morning and has been tolerating, will switch to ASV mode or CMV overnight 07/12: Patient has been on pressure support 5/5 all day all night continue bronchodilators (Atrovent and ipratropium) S/P Unasyn for a 10 day course. DC vancomycin 06/21 Blood pressures have been better, will diurese patient -chest x-ray this morning: Congestive heart failure, mildly improved since 07/2022? -currently on CMV mode of ventilation, peep of 5 on 30% FiO2 -hold diuresis patient on pressors (3) Cardiac arrest with ventricular fibrillation: Code(s): I46.9 - Cardiac arrest, cause unspecified; I49.01 - Ventricular fibrillation Status: Acute Assessment and Plan: Patient presented with VFib arrest, ROSC within 15 minutes after EMS arrived and started CPR, (total down time was about 25 minutes.) -patient status post target temperature management, -elevated troponins likely related to cardiac arrest -post target temperature management he is following simple commands with all 4 extremities 06/16/2022: Patient had slow VFib/V-tach with no ICD discharge, requiring defibrillation x1, electrolytes were within normal limits patient was given amiodarone bolus and started on amiodarone infusion,. Cardiology was present during the episode. Cardiology going to evaluate AICD discharge thresholds Cardiology has switched amiodarone infusion to p.o. amiodarone now 06/14/2022 echocardiogram showed LV chamber dimension is severely enlarged, severely reduced LV systolic function
[2022-07-16 18:26] LABS: Glucose Point of Care 160 mg/dl (65-105)
--- NOTE | 2022-07-16 19:28 | PM.PNNEP ---
Progress Note: A&P Assessment and Plan (1) Acute kidney injury: Code(s): N17.9 - Acute kidney failure, unspecified Status: Acute Assessment and Plan: patient has low urine output and an elevated creatinine. His ultrasound shows an exophytic mass, possibly cancer. However does not show any acute changes that would cause the renal insufficiency. Urine 'lytes prerenal. UA has some white cells in it. Most likely prerenal azotemia due to hypotension his bp is better and his creatinine is better as well. he received some ivfs and oxygenation is stable. (2) Hypotension: Code(s): I95.9 - Hypotension, unspecified Status: Acute Assessment and Plan: blood pressure is low. it has improved. on only 3mc NE (3) Cardiac arrest with ventricular fibrillation: Code(s): I46.9 - Cardiac arrest, cause unspecified; I49.01 - Ventricular fibrillation Status: Acute Assessment and Plan: This was his admitting issue. He has not had no rest lately. (4) Respiratory failure: Code(s): J96.90 - Respiratory failure, unspecified, unspecified whether with hypoxia or hypercapnia Status: Acute Assessment and Plan: He remains on the ventilator. (5) Anemia: Code(s): D64.9 - Anemia, unspecified Status: Acute (6) Renal mass: Code(s): N28.89 - Other specified disorders of kidney and ureter Status: Acute Assessment and Plan: seen on U/S CT shows solid right renal mass. c/w renal cell cancer. consult? Plan hemoglobin is down a bit. Will check stool guaiacs Subjective Date/time seen: 07/16/22 12:00 Interval history: 07/16 pt is awake no sob no dizziness Review of Systems Cardiovascular: Cardiovascular: Reports no additional cardiovascular complaints Respiratory: Respiratory: Reports no additional respiratory complaints Gastrointestinal: Gastrointestinal: Reports no additional gastrointestinal complaints Genitourinary: Genitourinary: Reports no additional male genitourinary complaints Exam Narrative: WDWN in NAD skin no rash head ncat lungs coarse. cor reg no rub abd BS+ nontender and soft ext 1+ edema. Objective Data Vital Signs Vital Signs: Vital Signs - 24 hr 07/15/22 20:02 07/15/22 20:05 07/15/22 20:00 Temperature 97.9 F Pulse Rate 75 84 83 Respiratory Rate 19 17 Blood Pressure 118/56 L Pulse Oximetry 99 98 Oxygen Delivery Mechanical Ventilation Fraction of Inspired Oxygen 30 07/15/22 20:00 07/15/22 20:00 07/15/22 22:00 Temperature Pulse Rate 80 85 Respiratory Rate Blood Pressure Pulse Oximetry Oxygen Delivery Fraction of Inspired Oxygen 30 07/15/22 20:00 07/15/22 22:00 07/15/22 22:26 Temperature Pulse Rate 85 81 Respiratory Rate 18 Blood Pressure 112/68 102/67 Pulse Oximetry 100 Oxygen Delivery Mechanical Ventilation Fraction of Inspired Oxygen 30 07/15/22 23:09 07/16/22 00:00 07/16/22 00:07 Temperature 99.1 F Pulse Rate 81 81 81 Respiratory Rate 21 H Blood Pressure 106/62 106/62 Pulse Oximetry 98 100 Oxygen Delivery Mechanical Ventilation Fraction of Inspired Oxygen 30 07/16/22 00:00 07/16/22 00:00 07/16/22 00:00 Temperature Pulse Rate 81 Respiratory Rate Blood Pressure Pulse Oximetry Oxygen Delivery Mechanical Ventilation Fraction of Inspired Oxygen 30 30 07/16/22 01:29 07/16/22 01:45 07/16/22 02:00 Temperature Pulse Rate 81 84 81 Respiratory Rate 22 H 22 H Blood Pressure Pulse Oximetry Oxygen Delivery Fraction of Inspired Oxygen 07/16/22 02:00 07/16/22 04:00 07/16/22 04:00 Temperature 98.7 F Pulse Rate 81 84 82 Respiratory Rate 19 19 Blood Pressure 98/56 L 88/75 L Pulse Oximetry 96 99 Oxygen Delivery Fraction of Inspired Oxygen 07/16/22 04:00 07/16/22 04:00 07/16/22 05:45 Temperature Pulse Rate 82 Re
[2022-07-16] MEDS: ALPRAZolam (*CRX) 0.5 MG TABLET PO (21:17)
[2022-07-16] MEDS: INSULIN GLARGINE (*BKC) 100 UNITS/ML 45 UNITS SUB-Q (21:19)
[2022-07-16 21:34] LABS: Glucose Point of Care 155 mg/dl (65-105)
[2022-07-17] VITALS (48 sets, daily range): BP systolic 85–130; BP diastolic 53–86; PULSE 63–93; RESP 14–23; TEMP 36.6–37.5; O2SAT 97–100
[2022-07-17 01:34] LABS: Glucose Point of Care 148 mg/dl (65-105)
[2022-07-17] MEDS: ALBUTEROL SULFATE NEB 2.5 MG/3 ML INH INHALATION ×4 (02:47→20:46)
[2022-07-17] MEDS: IPRATROPIUM BR 0.02% INH SOLN 0.5 MG/2.5 ML VIAL INHALATION ×4 (02:47→20:46)
[2022-07-17] MEDS: CENTRAL LINE FLUSH 10 ML IV PUSH ×3 (05:31→21:13)
[2022-07-17 05:46] LABS: Hematocrit 25.7 % (42.0-52.0); Hemoglobin 7.8 g/dL (14.0-18.0); Mean Corpuscular HGB Conc 30.4 g/dl (32-36); Mean Corpuscular Hemoglobin 29.8 pg (26-34); Mean Corpuscular Volume 98.1 fl (80-100); Mean Platelet Volume 10.9 fl (7.4-10.4); Platelet Count Result 254 k/mm3 (150-375); Red Blood Count 2.62 M/mm3 (4.6-6.20); Red Cell Distribution Width 14.5 % (11.5-14.5); White Blood Count 8.9 K/mm3 (4.5-10.0)
[2022-07-17 05:59] LABS: Alanine Aminotransferase 23 U/L (6-50); Albumin Level 3.2 g/dL (3.5-5.1); Alkaline Phosphatase 103 U/L (38-126); Anion Gap 2 mmol/L (8-16); Aspartate Amino Transferase 26 U/L (17-59); Bilirubin,Total 0.5 mg/dL (0.2-1.3); Blood Urea Nitrogen 87 mg/dL (9-20); Calcium 8.6 mg/dL (8.4-10.2); Carbon Dioxide 32 mmol/L (22-30); Chloride 100 mmol/L (98-107); Estimated CRCL calculation 48 ml/min; Estimated Glomerular Filt Rate 49; Glucose 199 mg/dL (65-110); Phosphorus 2.8 mg/dL (2.5-4.5); Potassium 4.5 mmol/L (3.4-5.0); Sodium 134 mmol/L (137-145)
[2022-07-17] MEDS: PANTOPRAZOLE SODIUM IV 40 MG VIAL IV PUSH ×2 (09:39→21:12)
[2022-07-17] MEDS: ATORVASTATIN 40 MG TABLET PO (09:39)
[2022-07-17] MEDS: AMIODARONE HCL 200 MG TABLET 400 MG PO (09:39)
[2022-07-17] MEDS: QUEtiapine FUMARATE 25 MG TABLET 50 MG PO ×2 (09:39→21:13)
[2022-07-17] MEDS: MINERAL OIL/WHITE PETROLATUM OINTMENT 1 APPLIC EACH EYE ×2 (09:40→21:12)
[2022-07-17] MEDS: TOLNAFTATE 1% POWDER 45 GM BTL 1 APPLIC TOPICAL ×2 (09:40→21:12)
[2022-07-17] MEDS: cefTRIAXone 2 GM in SODIUM CHLORIDE 0.9% IV 100 ML 200 ML IVPB (10:38)
--- NOTE | 2022-07-17 11:50 | PCFNICU ---
ICU Rounding Note: Pt current nutrition is Vital AF 1.2 at 65 ml/hr Last recorded weight is 118.8 kg. Bowel Motility:+Bm reported 07/16 Labs Reviewed:Glu 199, Cr 1.4,BUN 87, Na 134, Alb 3.2 Meds Noted:Seroquel,Levophed, Protonix, Ativan, Lasix, Lantus, NovoLog, Lipitor, Eliquis Skin: Pressure Ulcer Stage II-buttock Additional Notes: Patient current with Trach/PEG. Tolerating tube feedings of Vital AF 1.2 at 65 ml/hr. Protein Modular of Shaan BID for wound healing providing an additional 90 kcals and 2.5 gms protein. Flush 200 ml q 4 hours. Agree with diet orders. Following daily in ICU rounds. monitor feeding tolerance, per policy gastric residual, wt and labs.
[2022-07-17 12:44] LABS: Glucose Point of Care 167 mg/dl (65-105)
--- NOTE | 2022-07-17 13:17 | WPDINTPN ---
Progress Note: A&P Assessment and Plan (1) Sepsis: Code(s): A41.9 - Sepsis, unspecified organism Status: Acute Assessment and Plan: Blood urine and sputum cultures sent on 06/17 negative till now Was On vancomycin and Unasyn 06/21 -DC vancomycin S/p 10 days of Unasyn Low procalcitonin -07/14/2022: Septic shock: WBC count trending up, patient is afebrile, chest x-ray shows bilateral diffuse infiltrates -obtain sputum culture -hold antibiotics for now -remains on Levophed, maintain mean arterial pressures >65 mmHg for adequate end organ in renal perfusion -urine output and kidney function improving -will give IV fluid bolus and maintenance IV fluids -07/15/2022 blood cultures negative x2 -07/15/2022 urine culture growing Gram-negative bacilli 07/15/2028 sputum cultures passenger relations representative of lower respiratory tract -patient started on ceftriaxone 07/17 (2) Acute respiratory failure with hypoxia: Code(s): J96.01 - Acute respiratory failure with hypoxia Status: Acute Assessment and Plan: Acute respiratory failure likely related to cardiac arrest -patient was intubated ED on 06/11/2022 -patient was extubated on 06/19 after weaning trials for couple of days. After few hours patient became tachypneic, with increased work of breathing and respiratory distress. Patient was given additional dose of Lasix and was placed on BiPAP. On BiPAP patient initially improved later deteriorated and was reintubated on 06/19 Post extubation I did not hear any stridor on exam. Patient was wheezing and grunting but it was not inspiratory stridor. Later I was told by the nursing staff the patient was stridorous prior to re-intubation. Status post Solu-Medrol -06/30: Patient coughed if his ETT overnight, ETT was full of thick secretions, patient was re-intubated. 07/01-tracheostomy done 07/02-patient appeared to have dislodged his tracheostomy tube. He was emergently reintubated and trach was removed. Patient had a new trach placed later in the evening by ENT 07/09: Patient tolerated PSV 5/5 all day. Was placed on CMV mode overnight. 07/10: Patient has been placed on PSV 5/5 since this morning and has been tolerating, will switch to ASV mode or CMV overnight 07/12: Patient has been on pressure support 5/5 all day all night continue bronchodilators (Atrovent and ipratropium) S/P Unasyn for a 10 day course. DC vancomycin 06/21 Blood pressures have been better, will diurese patient -chest x-ray this morning: Congestive heart failure, mildly improved since 07/2022? -currently on CMV mode of ventilation, peep of 5 on 30% FiO2 -hold diuresis patient on pressors (3) Cardiac arrest with ventricular fibrillation: Code(s): I46.9 - Cardiac arrest, cause unspecified; I49.01 - Ventricular fibrillation Status: Acute Assessment and Plan: Patient presented with VFib arrest, ROSC within 15 minutes after EMS arrived and started CPR, (total down time was about 25 minutes.) -patient status post target temperature management, -elevated troponins likely related to cardiac arrest -post target temperature management he is following simple commands with all 4 extremities 06/16/2022: Patient had slow VFib/V-tach with no ICD discharge, requiring defibrillation x1, electrolytes were within normal limits patient was given amiodarone bolus and started on amiodarone infusion,. Cardiology was present during the episode. Cardiology going to evaluate AICD discharge thresholds Cardiology has switched amiodarone infusion to p.o. amiodarone now 06/14/2022 echocardiogram showed LV chamber dimension is severely enlarged, severely reduced LV systolic function with EF of 25-30%, mild aortic valve sclerosis, trace mitral valve regurg left atrial chamber dimension is mildly enlarged. (4) Acute kidney injury: Code(s): N17.9 - Acute kidney failure, unspecified Status: Acute Assessment and Plan: Patient with acu
--- NOTE | 2022-07-17 13:21 | PM.PNNEP ---
Progress Note: A&P Assessment and Plan (1) Acute kidney injury: Code(s): N17.9 - Acute kidney failure, unspecified Status: Acute Assessment and Plan: patient has low urine output and an elevated creatinine. His ultrasound shows an exophytic mass, possibly cancer. However does not show any acute changes that would cause the renal insufficiency. Urine 'lytes prerenal. UA has some white cells in it. Most likely prerenal azotemia due to hypotension his bp is a little better. He still requires some pressors. Oxygenation okay. Creatinine is down to 1.4. (2) Hypotension: Code(s): I95.9 - Hypotension, unspecified Status: Acute Assessment and Plan: blood pressure is low. it has improved. on only 1 mc NE (3) Cardiac arrest with ventricular fibrillation: Code(s): I46.9 - Cardiac arrest, cause unspecified; I49.01 - Ventricular fibrillation Status: Acute Assessment and Plan: This was his admitting issue. He has not had no rest lately. (4) Respiratory failure: Code(s): J96.90 - Respiratory failure, unspecified, unspecified whether with hypoxia or hypercapnia Status: Acute Assessment and Plan: He remains on the ventilator. (5) Anemia: Code(s): D64.9 - Anemia, unspecified Status: Acute (6) Renal mass: Code(s): N28.89 - Other specified disorders of kidney and ureter Status: Acute Assessment and Plan: seen on U/S CT shows solid right renal mass. c/w renal cell cancer. consult? Plan hemoglobin is down a bit. Will check stool guaiacs Subjective Date/time seen: 07/17/22 13:21 Interval history: 07/16 pt is awake no sob no dizziness 07/17 patient is sitting at the side of the bed with physical therapy. He stood up almost on his own. He did not stand for very long and then sat back on the bed. Exam Narrative: WDWN in NAD skin no rash head ncat lungs coarse. cor reg no rub or gallop abd BS+ nontender and soft ext 1+ bilateral edema. Objective Data Vital Signs Vital Signs: Vital Signs - 24 hr 07/16/22 13:47 07/16/22 13:48 07/16/22 14:01 Temperature Pulse Rate 83 83 75 Respiratory Rate 18 23 H Blood Pressure Pulse Oximetry 99 Oxygen Delivery Mechanical Ventilation Fraction of Inspired Oxygen 30 07/16/22 16:55 07/16/22 14:00 07/16/22 16:00 Temperature Pulse Rate 80 82 71 Respiratory Rate Blood Pressure Pulse Oximetry 98 Oxygen Delivery Mechanical Ventilation Fraction of Inspired Oxygen 30 07/16/22 18:00 07/16/22 14:00 07/16/22 16:00 Temperature 98.6 F Pulse Rate 83 82 71 Respiratory Rate 23 H 20 Blood Pressure 114/65 110/66 Pulse Oximetry 100 99 Oxygen Delivery Fraction of Inspired Oxygen 07/16/22 18:00 07/16/22 16:00 07/16/22 16:00 Temperature Pulse Rate 83 Respiratory Rate 19 Blood Pressure 103/54 L Pulse Oximetry 98 Oxygen Delivery Mechanical Ventilation Fraction of Inspired Oxygen 30 30 07/16/22 20:22 07/16/22 20:23 07/16/22 20:35 Temperature Pulse Rate 83 83 87 Respiratory Rate 19 19 Blood Pressure Pulse Oximetry 100 Oxygen Delivery Mechanical Ventilation Fraction of Inspired Oxygen 30 07/16/22 20:00 07/16/22 20:00 07/16/22 20:00 Temperature Pulse Rate 82 Respiratory Rate Blood Pressure Pulse Oximetry Oxygen Delivery Mechanical Ventilation Fraction of Inspired Oxygen 30 30 07/16/22 20:00 07/16/22 22:00 07/16/22 22:00 Temperature 98.2 F Pulse Rate 82 84 84 Respiratory Rate 19 20 Blood Pressure 120/60 91/50 L Pulse Oximetry 99 98 Oxygen Delivery Fraction of Inspired Oxygen 07/16/22 22:33 07/17/22 00:00 07/17/22 00:00 Temperature Pulse Rate 63 Respiratory Rate Blood Pressure 86/48 L Pulse Oximetry Oxygen Delivery Mechanical Ventilation Fraction of Inspired Oxygen 30 30
--- NOTE | 2022-07-17 16:00 | WPDURCON ---
Assessment and Plan Assessment and plan (1) Renal mass: Code(s): N28.89 - Other specified disorders of kidney and ureter Status: Acute Assessment and Plan: I had a discussion with him and his at the bedside about following up as an outpatient with Dr. Ríos concerning his bilateral renal masses for further evaluation and discussion. They understand that the options would be partial nephrectomy bilaterally versus repeat imaging periodically to monitor. They also understand that he is not a surgical candidate d/t his grave health condition and that continued imaging to watch the masses would be the best option at this time. All questions were answered and they will f/u when and if he is able to be discharged. No further urologic care needed at this time. Urology Consult Note HPI Date Seen: 07/17/22 Time Seen: 10:00 Requesting Physician: Mario Carrera MD Primary Care Provider: Anthony Velasco MD Consult Narrative Reason for consult: Bilateral Renal Mass Narrative: Kenny Schneider is a 77 year old male who presented to the ER d/t cardiac arrest at home. He has been here since 06/11/[address] found to have bilateral renal masses 4.4cm in the right kidney which is solid and complex and an indeterminate left renal mass measuring 2.9cm which seem to represent renal cell carcinoma. His is at the bedside and states he has never had any family history of renal cancer but did smoke for 30 years prior to quitting 30 years ago. His WBC is normal at 8.9, creatinine is stable at 1.40, catheter in and draining to gravity. His urine culture is negative and urine is clear yellow. He has no concerning urological history that they are aware of. Review of Systems Cardiovascular: Cardiovascular: Denies chest pain Respiratory: Respiratory: Reports no additional respiratory complaints Gastrointestinal: Gastrointestinal: Denies abdominal pain, Denies nausea and Denies vomiting Genitourinary: Genitourinary: Denies hematuria, Denies flank pain, Denies urinary hesitancy, Denies urinary incontinence and Denies urinary urgency [facility] Past Medical History Medical History Abscess Acute kidney injury Anemia Atrial flutter Benign essential hypertension Bilateral cataracts BMI 38.0-38.9,adult Bronchitis Cardiac arrest with ventricular fibrillation (2013) CHF (congestive heart failure) Chronic anticoagulation CKD (chronic kidney disease) Cough DVT, lower extremity Elevated serum creatinine Encounter for Medicare annual wellness exam Gastrostomy tube dysfunction History of colon polyps (Unknown) Hyperlipidemia Hypertension Hypotension Hypotension Impacted cerumen of left ear Nonischemic cardiomyopathy Echocardiogram in March 2021 showed severe LV systolic dysfunction with an EF of 25 to 30%. Otitis of left ear Paroxysmal atrial flutter Pyogenic granuloma Vitamin D deficiency Surgical History Surgical History History of cholecystectomy History of implantable cardioverter-defibrillator (ICD) insertion History of open reduction and internal fixation (ORIF) procedure Bilateral lower extremity fractures. History of total right knee replacement S/P cataract surgery Family History Family History Father Family history of heart disease in male family member before age 55 Family history of cardiovascular disease Mother Family history of heart disease in male family member before age 55 Family history of cardiovascular disease Sibling Colon cancer Social History Social History Social History: Surrogate decision maker: Delaney Schneider, . Code status: Full code. Smoking status: Never smoker Second hand tobacco smoke exposure: No Alcohol intake: never Substance use
[2022-07-17 18:03] LABS: Glucose Point of Care 177 mg/dl (65-105)
[2022-07-17] MEDS: INSULIN GLARGINE (*BKC) 100 UNITS/ML 45 UNITS SUB-Q (21:13)
[2022-07-17 22:01] LABS: Glucose Point of Care 191 mg/dl (65-105)
[2022-07-17 23:43] LABS: Glucose Point of Care 163 mg/dl (65-105)
[2022-07-18] VITALS (84 sets, daily range): BP systolic 87–145; BP diastolic 34–103; PULSE 72–123; RESP 12–40; TEMP 36.7–37; O2SAT 86–100
[2022-07-18] MEDS: IPRATROPIUM BR 0.02% INH SOLN 0.5 MG/2.5 ML VIAL INHALATION ×4 (02:15→21:15)
[2022-07-18] MEDS: ALBUTEROL SULFATE NEB 2.5 MG/3 ML INH INHALATION ×4 (02:15→21:15)
[2022-07-18 05:00] LABS: Alveolar/Arterial O2 Gradient 58.3 mmHg; Base Excess ABG 7.7 mEq/l (+/-2.0); Fractional Inspired Oxygen 30 %; HCO3 ABG 32.2 mEq/l (22.0-26.0); Methemoglobin ABG 0.3 %THb (0-1.5); Oxygen Content ABG 20.5 %vol (16.0-22.0); Oxyhemoglobin 97.3 % THb (90.0-100.0); PCO2 ABG 44.5 mmHg (35.0-45.0); PO2 ABG 103.3 mmHg (80.0-100.0); PO2 FiO2 Ratio Arterial Blood 3.44 %; Reduced Hemoglobin 2.4 %THb (0-5.0); Total Hemoglobin 14.9 g/dL (12.0-18.0); pH ABG 7.478 (7.350-7.450)
[2022-07-18 05:02] LABS: Arterial Blood Gas Ventilator rate 16 /MIN; Device VENTILATOR; Modified Allen's Test Pass; Site Drawn LEFT RADIAL
[2022-07-18 05:03] LABS: Arterial Blood Gas PEEP 8 cmH2O; Arterial Blood Gas Tidal Volume 400 ml; Arterial Blood Gas Vent Mode CMV
[2022-07-18 05:21] LABS: Basophils Percent Auto 0.4 % (0.2-1.2); Eosinophils Absolute Auto 0.4 K/mm3 (0-0.3); Eosinophils Percent Auto 3.8 % (0-4.4); Hemoglobin 8.1 g/dL (14.0-18.0); Immature Granulocyte Absolute 0.11 K/mm3 (0.00-0.031); Immature Granulocyte Percent A 1.1 % (0-0.5); Lymphocytes Absolute Auto 0.52 K/mm3 (0.9-3.2); Lymphocytes Percent Auto 5.2 % (18.3-44.2); Mean Corpuscular Hemoglobin 29.6 pg (26-34); Mean Corpuscular Volume 98.5 fl (80-100); Mean Platelet Volume 10.5 fl (7.4-10.4); Monocytes Absolute Auto 0.7 K/mm3 (0.1-0.6); Neutrophils Absolute Auto 8.3 K/mm3 (1.3-6.7); Neutrophils Percent Auto 82.5 % (45.5-73.1); Platelet Count Result 266 k/mm3 (150-375); Red Blood Count 2.74 M/mm3 (4.6-6.20); Red Cell Distribution Width 14.4 % (11.5-14.5); White Blood Count 10.1 K/mm3 (4.5-10.0)
[2022-07-18] MEDS: CENTRAL LINE FLUSH 10 ML IV PUSH ×3 (05:33→21:51)
[2022-07-18 05:36] LABS: Alanine Aminotransferase 25 U/L (6-50); Albumin Level 3.3 g/dL (3.5-5.1); Alkaline Phosphatase 129 U/L (38-126); Anion Gap 5 mmol/L (8-16); Aspartate Amino Transferase 26 U/L (17-59); Bilirubin,Total 0.3 mg/dL (0.2-1.3); Blood Urea Nitrogen 73 mg/dL (9-20); Calcium 8.7 mg/dL (8.4-10.2); Carbon Dioxide 31 mmol/L (22-30); Chloride 103 mmol/L (98-107); Estimated CRCL calculation 47 ml/min; Estimated Glomerular Filt Rate 49; Glucose 160 mg/dL (65-110); Phosphorus 2.8 mg/dL (2.5-4.5); Potassium 4.4 mmol/L (3.4-5.0); Sodium 139 mmol/L (137-145)
[2022-07-18] MEDS: QUEtiapine FUMARATE 25 MG TABLET 50 MG PO ×2 (08:35→20:23)
[2022-07-18] MEDS: AMIODARONE HCL 200 MG TABLET 400 MG PO (08:35)
[2022-07-18] MEDS: ATORVASTATIN 40 MG TABLET PO (08:35)
[2022-07-18] MEDS: PANTOPRAZOLE SODIUM IV 40 MG VIAL IV PUSH ×2 (08:36→20:22)
[2022-07-18] MEDS: TOLNAFTATE 1% POWDER 45 GM BTL 1 APPLIC TOPICAL ×2 (08:36→20:22)
[2022-07-18] MEDS: MINERAL OIL/WHITE PETROLATUM OINTMENT 1 APPLIC EACH EYE (08:36)
--- NOTE | 2022-07-18 10:28 | WPDINTPN ---
Progress Note: A&P Assessment and Plan (1) Sepsis: Code(s): A41.9 - Sepsis, unspecified organism Status: Acute Assessment and Plan: Blood urine and sputum cultures sent on 06/17 negative till now Was On vancomycin and Unasyn 06/21 -DC vancomycin S/p 10 days of Unasyn Low procalcitonin -07/14/2022: Septic shock: WBC count trending up, patient is afebrile, chest x-ray shows bilateral diffuse infiltrates -obtain sputum culture -hold antibiotics for now -remains on Levophed, maintain mean arterial pressures >65 mmHg for adequate end organ in renal perfusion -urine output and kidney function improving -will give IV fluid bolus and maintenance IV fluids -07/15/2022 blood cultures negative x2 -07/15/2022 urine culture growing Proteus which is sensitive to Rocephin 07/15/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 After few hours patient became tachypneic, with increased work of breathing and respiratory distress. Patient was given additional dose of Lasix and was placed on BiPAP. On BiPAP patient initially improved later deteriorated and was reintubated on 06/19 Post extubation I did not hear any stridor on exam. Patient was wheezing and grunting but it was not inspiratory stridor. Later I was told by the nursing staff the patient was stridorous prior to re-intubation. Status post Solu-Medrol -06/30: Patient coughed if his ETT overnight, ETT was full of thick secretions, patient was re-intubated. 07/01-tracheostomy done 07/02-patient appeared to have dislodged his tracheostomy tube. He was emergently reintubated and trach was removed. Patient had a new trach placed later in the evening by ENT 07/09: Patient tolerated PSV 5/5 all day. Was placed on CMV mode overnight. 07/10: Patient has been placed on PSV 5/5 since this morning and has been tolerating, will switch to ASV mode or CMV overnight 07/12: Patient has been on pressure support 5/5 all day all night continue bronchodilators (Atrovent and ipratropium) S/P Unasyn for a 10 day course. DC vancomycin 06/21 Blood pressures have been better, will diurese patient -chest x-ray this morning: Congestive heart failure, tracheostomy, small bilateral pleural effusion -currently on CMV mode of ventilation, peep of 5 on 30% FiO2 -Will try PSV again today -hold diuretics (3) Cardiac arrest with ventricular fibrillation: Code(s): I46.9 - Cardiac arrest, cause unspecified; I49.01 - Ventricular fibrillation Status: Acute Assessment and Plan: Patient presented with VFib arrest, ROSC within 15 minutes after EMS arrived and started CPR, (total down time was about 25 minutes.) -patient status post target temperature management, -elevated troponins likely related to cardiac arrest -post target temperature management he is following simple commands with all 4 extremities 06/16/2022: Patient had slow VFib/V-tach with no ICD discharge, requiring defibrillation x1, electrolytes were within normal limits patient was given amiodarone bolus and started on amiodarone infusion,. Cardiology was present during the episode. Cardiology going to evaluate AICD discharge thresholds Cardiology has switched amiodarone infusion to p.o. amiodarone now 06/14/2022 echocardiogram showed LV chamber dimension is severely enlarged, severely reduced LV systolic function with EF of 25-30%, mild aortic valve sclerosis, trace mitral valve regurg left atrial chamber dimension is mildly enlarged. (4) Acute kidney injury: Code
--- NOTE | 2022-07-18 10:40 | PCFNICU ---
ICU Rounding Note: Pt current nutrition is Vital AF 1.2 at 65 ml/hr. Last recorded weight is 114.7 kg. Bowel Motility:+BM reported 07/16 Labs Reviewed:Glu 160, BUN 73, Cr 1.4,Alb 3.3,Hct 27.0,Hgb 8.1 Meds Noted:Seroquel, Protonix, Ativan, Lasix, Lantus, NovoLog, Lipitor, Eliquis Skin: Stage II PU-buttock Additional Notes: Patient current with Trach and PEG. Tolerating tube feedings of Vital AF 1.2 at 65 ml/hr. Flush 200 ml q 4 hours. Agree with diet orders. Following daily in ICU rounds. follow up T/F monitor feeding tolerance, per policy gastric residual, wt and labs.
[2022-07-18] MEDS: INSULIN ASPART (*BKC) 100 UNITS/ML SUB-Q ×2 (12:30→16:12)
[2022-07-18 12:42] LABS: Glucose Point of Care 240 mg/dl (65-105)
[2022-07-18] MEDS: cefTRIAXone 2 GM in SODIUM CHLORIDE 0.9% IV 100 ML 200 ML IVPB (12:59)
--- NOTE | 2022-07-18 16:55 | PM.PNNEP ---
Progress Note: A&P Assessment and Plan (1) Acute kidney injury: Code(s): N17.9 - Acute kidney failure, unspecified Status: Acute Assessment and Plan: patient has low urine output and an elevated creatinine. His ultrasound shows an exophytic mass, possibly cancer. However does not show any acute changes that would cause the renal insufficiency. Urine 'lytes prerenal. UA has some white cells in it. Most likely prerenal azotemia due to hypotension his bp is improved. He is off his norepinephrine now. Oxygenation okay. Creatinine is stable at 1.4 (2) Hypotension: Code(s): I95.9 - Hypotension, unspecified Status: Acute Assessment and Plan: blood pressure is better. Off norepinephrine urine culture showed Proteus. Sensitivities show a sensitive bug. On ceftriaxone (3) Cardiac arrest with ventricular fibrillation: Code(s): I46.9 - Cardiac arrest, cause unspecified; I49.01 - Ventricular fibrillation Status: Acute Assessment and Plan: This was his admitting issue. He has not had no rest lately. (4) Respiratory failure: Code(s): J96.90 - Respiratory failure, unspecified, unspecified whether with hypoxia or hypercapnia Status: Acute Assessment and Plan: He remains on the ventilator. (5) Anemia: Code(s): D64.9 - Anemia, unspecified Status: Acute (6) Renal mass: Code(s): N28.89 - Other specified disorders of kidney and ureter Status: Acute Assessment and Plan: seen on U/S CT shows solid right renal mass. c/w renal cell cancer. urology on the case Plan hemoglobin is down a bit. Will check stool guaiacs Subjective Date/time seen: 07/18/22 16:55 Interval history: 07/16 pt is awake no sob no dizziness 07/17 patient is sitting at the side of the bed with physical therapy. He stood up almost on his own. He did not stand for very long and then sat back on the bed. 07/18 Patient is lying comfortably in bed. Daughter in the room. he sat up in a chair for several hours today and tolerated it pretty well. No chest pain or shortness of breath Exam Narrative: WDWN in NAD skin no rash or subcu nodules head ncat lungs coarse bilaterally. cor reg no rub or gallop abd BS+ nontender and soft ext 1 bilateral edema. Objective Data Vital Signs Vital Signs: Vital Signs - 24 hr 07/17/22 18:00 07/17/22 18:00 07/17/22 20:47 Temperature Pulse Rate 83 83 88 Respiratory Rate 19 20 Blood Pressure 94/54 L Pulse Oximetry 98 Oxygen Delivery Fraction of Inspired Oxygen 07/17/22 20:45 07/17/22 20:00 07/17/22 20:00 Temperature 98.1 F Pulse Rate 88 74 79 Respiratory Rate 18 Blood Pressure 93/62 L Pulse Oximetry 97 98 Oxygen Delivery Mechanical Ventilation Fraction of Inspired Oxygen 30 07/17/22 22:00 07/17/22 22:00 07/17/22 20:00 Temperature Pulse Rate 83 83 Respiratory Rate 20 Blood Pressure 101/54 L Pulse Oximetry 100 Oxygen Delivery Fraction of Inspired Oxygen 30 07/17/22 20:00 07/18/22 00:00 07/18/22 00:00 Temperature 98.2 F Pulse Rate 85 85 Respiratory Rate 19 Blood Pressure 105/58 L Pulse Oximetry 98 100 Oxygen Delivery Mechanical Ventilation Fraction of Inspired Oxygen 30 07/18/22 00:00 07/18/22 00:00 07/18/22 02:00 Temperature Pulse Rate 89 Respiratory Rate Blood Pressure Pulse Oximetry 100 Oxygen Delivery Mechanical Ventilation Fraction of Inspired Oxygen 30 30 07/18/22 02:00 07/17/22 23:17 07/17/22 21:00 Temperature Pulse Rate 89 84 91 Respiratory Rate 20 20 Blood Pressure 129/77 Pulse Oximetry 100 99 Oxygen Delivery Mechanical Ventilation Fraction of Inspired Oxygen 30 07/18/22 02:18 07/18/22 02:21 07/18/22 04:00 Temperature Pulse Rate 85 85 93 Respiratory Rate 21 H Blood Pressure Pulse Oximetry 99
[2022-07-18] MEDS: guaiFENesin/DEXTROMETHORPHAN 10 ML UDC PO ×2 (17:11→21:30)
[2022-07-18 18:11] LABS: Glucose Point of Care 190 mg/dl (65-105)
[2022-07-18] MEDS: ALPRAZolam (*CRX) 0.5 MG TABLET PO (20:22)
[2022-07-18] MEDS: INSULIN GLARGINE (*BKC) 100 UNITS/ML 45 UNITS SUB-Q (20:23)
[2022-07-18 20:28] LABS: Glucose Point of Care 178 mg/dl (65-105)
[2022-07-19] VITALS (24 sets, daily range): BP systolic 92–137; BP diastolic 59–88; PULSE 63–110; RESP 22–36; TEMP 36.4–37.2; O2SAT 92–100
[2022-07-19 00:33] LABS: Glucose Point of Care 167 mg/dl (65-105)
[2022-07-19 05:37] LABS: Albumin Level 3.3 g/dL (3.5-5.1); Anion Gap 8 mmol/L (8-16); Blood Urea Nitrogen 74 mg/dL (9-20); Calcium 8.9 mg/dL (8.4-10.2); Carbon Dioxide 29 mmol/L (22-30); Chloride 100 mmol/L (98-107); Estimated CRCL calculation 47 ml/min; Estimated Glomerular Filt Rate 49; Glucose 211 mg/dL (65-110); Phosphorus 3.5 mg/dL (2.5-4.5); Potassium 4.1 mmol/L (3.4-5.0); Sodium 137 mmol/L (137-145)
[2022-07-19] MEDS: INSULIN ASPART (*BKC) 100 UNITS/ML SUB-Q ×2 (06:38→12:08)
[2022-07-19] MEDS: CENTRAL LINE FLUSH 10 ML IV PUSH ×3 (06:38→21:06)
[2022-07-19 06:44] LABS: Glucose Point of Care 219 mg/dl (65-105)
[2022-07-19] MEDS: QUEtiapine FUMARATE 25 MG TABLET 50 MG PO ×2 (08:12→21:05)
[2022-07-19] MEDS: ATORVASTATIN 40 MG TABLET PO (08:12)
[2022-07-19] MEDS: AMIODARONE HCL 200 MG TABLET 400 MG PO (08:12)
[2022-07-19] MEDS: TOLNAFTATE 1% POWDER 45 GM BTL 1 APPLIC TOPICAL ×2 (08:13→21:06)
[2022-07-19] MEDS: IPRATROPIUM BR 0.02% INH SOLN 0.5 MG/2.5 ML VIAL INHALATION ×3 (08:16→19:58)
[2022-07-19] MEDS: ALBUTEROL SULFATE NEB 2.5 MG/3 ML INH INHALATION ×3 (08:16→19:59)
[2022-07-19] MEDS: PANTOPRAZOLE SODIUM IV 40 MG VIAL IV PUSH ×2 (08:17→21:06)
--- NOTE | 2022-07-19 09:45 | WPDINTPN ---
Progress Note: A&P Assessment and Plan (1) Sepsis: Code(s): A41.9 - Sepsis, unspecified organism Status: Acute Assessment and Plan: Blood urine and sputum cultures sent on 06/17 negative till now Was On vancomycin and Unasyn 06/21 -DC vancomycin S/p 10 days of Unasyn Low procalcitonin -07/14/2022: Septic shock: WBC count trending up, patient is afebrile, chest x-ray shows bilateral diffuse infiltrates -obtain sputum culture -hold antibiotics for now -remains on Levophed, maintain mean arterial pressures >65 mmHg for adequate end organ in renal perfusion -urine output and kidney function improving -will give IV fluid bolus and maintenance IV fluids -07/15/2022 blood cultures negative x2 -07/15/2022 urine culture growing Proteus which is sensitive to Rocephin 07/15/2028 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 After few hours patient became tachypneic, with increased work of breathing and respiratory distress. Patient was given additional dose of Lasix and was placed on BiPAP. On BiPAP patient initially improved later deteriorated and was reintubated on 06/19 Post extubation I did not hear any stridor on exam. Patient was wheezing and grunting but it was not inspiratory stridor. Later I was told by the nursing staff the patient was stridorous prior to re-intubation. Status post Solu-Medrol -06/30: Patient coughed if his ETT overnight, ETT was full of thick secretions, patient was re-intubated. 07/01-tracheostomy done 07/02-patient appeared to have dislodged his tracheostomy tube. He was emergently reintubated and trach was removed. Patient had a new trach placed later in the evening by ENT 07/09: Patient tolerated PSV 5/5 all day. Was placed on CMV mode overnight. 07/10: Patient has been placed on PSV 5/5 since this morning and has been tolerating, will switch to ASV mode or CMV overnight 07/12: Patient has been on pressure support 5/5 all day all night continue bronchodilators (Atrovent and ipratropium) S/P Unasyn for a 10 day course. DC vancomycin 06/21 Blood pressures have been better, will diurese patient -chest x-ray this morning: Congestive heart failure, tracheostomy, small bilateral pleural effusion -currently on CMV mode of ventilation, peep of 5 on 30% FiO2 /-he tolerated PSV 5/5 for few hours yesterday before getting tachypnea and was switched back CMV -Will try PSV again today -will give Lasix today (3) Cardiac arrest with ventricular fibrillation: Code(s): I46.9 - Cardiac arrest, cause unspecified; I49.01 - Ventricular fibrillation Status: Acute Assessment and Plan: Patient presented with VFib arrest, ROSC within 15 minutes after EMS arrived and started CPR, (total down time was about 25 minutes.) -patient status post target temperature management, -elevated troponins likely related to cardiac arrest -post target temperature management he is following simple commands with all 4 extremities 06/16/2022: Patient had slow VFib/V-tach with no ICD discharge, requiring defibrillation x1, electrolytes were within normal limits patient was given amiodarone bolus and started on amiodarone infusion,. Cardiology was present during the episode. Cardiology going to evaluate AICD discharge thresholds Cardiology has switched amiodarone infusion to p.o. amiodarone now 06/14/2022 echocardiogram showed LV chamber dimension is severely enlarged, severely reduced LV systolic function with EF of 25-30%, mild aortic valve sclerosis, trac
[2022-07-19] MEDS: FUROSEMIDE INJ 40 MG/4 ML VIAL 20 MG IV PUSH (10:17)
[2022-07-19] MEDS: FLUCONAZOLE 100 MG TABLET 200 MG FEED TUBE (10:19)
--- NOTE | 2022-07-19 11:44 | PCNFU ---
Nutrition Follow-Up Complete: decreased nutrient needs related to NPO status as evidence by diet order goal: Meet estimated energy needs through TF Patient is progressing towards goal. We will continue current goal. Pt current nutrition is Vital AF 1.2 at 65 ml/hr Last recorded weight is 122.5 kg. Bowel Motility:+Bm reported 07/19 Labs Reviewed:Glu 211, Cr 1.4.BUN 74, GFR 49, Alb 3.3 Meds Noted:Seroquel, Protonix, Ativan, Lasix, Lantus, NovoLog, Lipitor, Eliquis Skin: Stage II PU-buttock Additional Notes: Patient remains current with Trach and PEG. Tube feedings of Vital AF 1.2 at 65 ml/hr and tolerating. Shaan BID for wound healing. Flush 200 ml q 4 hours. Plans for LTAC at discharge. follow up T/F monitor feeding tolerance, per policy gastric residual, wt and labs
[2022-07-19 11:54] LABS: Glucose Point of Care 224 mg/dl (65-105)
[2022-07-19] MEDS: cefTRIAXone 2 GM in SODIUM CHLORIDE 0.9% IV 100 ML 200 ML IVPB (12:08)
--- NOTE | 2022-07-19 12:34 | PM.PNNEP ---
Progress Note: A&P Assessment and Plan (1) Acute kidney injury: Code(s): N17.9 - Acute kidney failure, unspecified Status: Acute Assessment and Plan: patient has low urine output and an elevated creatinine. His ultrasound shows an exophytic mass, possibly cancer. However does not show any acute changes that would cause the renal insufficiency. has seen the patient Urine 'lytes prerenal. UA has some white cells in it. Most likely prerenal azotemia due to hypotension his bpis better Oxygenation okay. Creatinine seems to have plateaued at 1.4 (2) Hypotension: Code(s): I95.9 - Hypotension, unspecified Status: Acute Assessment and Plan: blood pressure is better. urine culture showed Proteus. Sensitivities show a sensitive bug. On ceftriaxone (3) Cardiac arrest with ventricular fibrillation: Code(s): I46.9 - Cardiac arrest, cause unspecified; I49.01 - Ventricular fibrillation Status: Acute Assessment and Plan: This was his admitting issue. He has not had no rest lately. (4) Respiratory failure: Code(s): J96.90 - Respiratory failure, unspecified, unspecified whether with hypoxia or hypercapnia Status: Acute Assessment and Plan: He remains on the ventilator per tracheostomy (5) Anemia: Code(s): D64.9 - Anemia, unspecified Status: Acute (6) Renal mass: Code(s): N28.89 - Other specified disorders of kidney and ureter Status: Acute Assessment and Plan: seen on U/S CT shows solid right renal mass. c/w renal cell cancer. urology on the case Plan hemoglobin is down a bit. Will check stool guaiacs Subjective Date/time seen: 07/19/22 12:34 Interval history: 07/16 pt is awake no sob no dizziness 07/17 patient is sitting at the side of the bed with physical therapy. He stood up almost on his own. He did not stand for very long and then sat back on the bed. 07/18 Patient is lying comfortably in bed. Daughter in the room. he sat up in a chair for several hours today and tolerated it pretty well. No chest pain or shortness of breath 07/19 Patient is awakened up in a chair. Daughter and are in the room. No shortness of breath or chest pain Exam Narrative: WDWN in NAD skin no rash or subcu nodules head ncat lungs coarse bilaterally. cor reg no rub or gallop abd BS+ nontender and soft ext 1 bilateral edema. Objective Data Vital Signs Vital Signs: Vital Signs - 24 hr 07/18/22 12:45 07/18/22 12:46 07/18/22 14:00 Temperature Pulse Rate 85 85 81 Respiratory Rate 28 H 27 H 26 H Blood Pressure 95/59 L 113/71 Pulse Oximetry 95 96 93 Oxygen Delivery Fraction of Inspired Oxygen 07/18/22 14:21 07/18/22 14:28 07/18/22 16:00 Temperature 98.0 F Pulse Rate 81 82 78 Respiratory Rate 27 H 24 H Blood Pressure 117/68 Pulse Oximetry 99 99 Oxygen Delivery Mechanical Ventilation Fraction of Inspired Oxygen 30 07/18/22 16:00 07/18/22 14:00 07/18/22 16:00 Temperature Pulse Rate 84 82 Respiratory Rate Blood Pressure Pulse Oximetry Oxygen Delivery Fraction of Inspired Oxygen 30 07/18/22 17:36 07/18/22 18:00 07/18/22 12:47 Temperature Pulse Rate 91 82 85 Respiratory Rate 24 H Blood Pressure Pulse Oximetry 95 96 Oxygen Delivery Mechanical Ventilation Fraction of Inspired Oxygen 30 07/18/22 13:00 07/18/22 13:01 07/18/22 13:15 Temperature Pulse Rate 81 84 83 Respiratory Rate 25 H 25 H 26 H Blood Pressure 105/56 L Pulse Oximetry 94 95 97 Oxygen Delivery Fraction of Inspired Oxygen 07/18/22 13:16 07/18/22 13:30 07/18/22 13:31 Temperature Pulse Rate 83 84 82 Respiratory Rate 25 H 26 H 25 H Blood Pressure 110/68 114/66 Pulse Oximetry 97 95 96 Oxygen Delivery Fraction of Inspired Oxygen 07/18/22 13:46 07/18/22 14:43 07/18/22
--- NOTE | 2022-07-19 13:38 | PCOTNOTE ---
Attempted to see pt. for occupational therapy re-evaluation. Pt. requested to be seen tomorrow as he is very fatigued from working with PT and being out of bed for several hours this AM. Nursing in agreement. Following.
[2022-07-19 16:01] LABS: Chloride Rand Ur <20 mmol/L (32-290); Creatinine Random Urine 77 mg/dL (20-320)
[2022-07-19 18:06] LABS: Glucose Point of Care 190 mg/dl (65-105)
[2022-07-19 20:42] LABS: Glucose Point of Care 188 mg/dl (65-105)
[2022-07-19] MEDS: ALPRAZolam (*CRX) 0.5 MG TABLET PO (21:05)
[2022-07-19] MEDS: INSULIN GLARGINE (*BKC) 100 UNITS/ML 45 UNITS SUB-Q (21:06)
[2022-07-20] VITALS (24 sets, daily range): BP systolic 84–134; BP diastolic 60–90; PULSE 63–89; RESP 20–28; TEMP 36.4–37.1; O2SAT 95–100
[2022-07-20 01:00] LABS: Glucose Point of Care 198 mg/dl (65-105)
[2022-07-20] MEDS: ALBUTEROL SULFATE NEB 2.5 MG/3 ML INH INHALATION ×4 (01:32→20:50)
[2022-07-20] MEDS: IPRATROPIUM BR 0.02% INH SOLN 0.5 MG/2.5 ML VIAL INHALATION ×4 (01:32→20:50)
[2022-07-20 05:55] LABS: Glucose Point of Care 203 mg/dl (65-105)
[2022-07-20] MEDS: INSULIN ASPART (*BKC) 100 UNITS/ML SUB-Q (06:12)
[2022-07-20] MEDS: CENTRAL LINE FLUSH 10 ML IV PUSH ×3 (06:13→20:16)
[2022-07-20 06:38] LABS: Hematocrit 25.7 % (42.0-52.0); Hemoglobin 7.7 g/dL (14.0-18.0); Mean Corpuscular Hemoglobin 28.8 pg (26-34); Mean Corpuscular Volume 96.3 fl (80-100); Mean Platelet Volume 10.6 fl (7.4-10.4); Platelet Count Result 302 k/mm3 (150-375); Red Blood Count 2.67 M/mm3 (4.6-6.20); Red Cell Distribution Width 14.4 % (11.5-14.5); White Blood Count 12.1 K/mm3 (4.5-10.0)
[2022-07-20 06:57] LABS: Alanine Aminotransferase 22 U/L (6-50); Albumin Level 3.2 g/dL (3.5-5.1); Alkaline Phosphatase 110 U/L (38-126); Anion Gap 3 mmol/L (8-16); Aspartate Amino Transferase 24 U/L (17-59); Bilirubin,Total 0.4 mg/dL (0.2-1.3); Blood Urea Nitrogen 80 mg/dL (9-20); Calcium 8.7 mg/dL (8.4-10.2); Carbon Dioxide 31 mmol/L (22-30); Chloride 100 mmol/L (98-107); Estimated CRCL calculation 56 ml/min; Estimated Glomerular Filt Rate 59; Glucose 191 mg/dL (65-110); Magnesium 2.1 mg/dL (1.6-2.3); Phosphorus 3.2 mg/dL (2.5-4.5); Potassium 4.3 mmol/L (3.4-5.0); Sodium 134 mmol/L (137-145)
[2022-07-20] MEDS: ATORVASTATIN 40 MG TABLET PO (08:57)
[2022-07-20] MEDS: FLUCONAZOLE 100 MG TABLET FEED TUBE (08:57)
[2022-07-20] MEDS: AMIODARONE HCL 200 MG TABLET 400 MG PO (08:58)
[2022-07-20] MEDS: PANTOPRAZOLE SODIUM IV 40 MG VIAL IV PUSH ×2 (08:58→20:15)
[2022-07-20] MEDS: TOLNAFTATE 1% POWDER 45 GM BTL 1 APPLIC TOPICAL ×2 (08:58→20:16)
[2022-07-20] MEDS: QUEtiapine FUMARATE 25 MG TABLET 50 MG PO ×2 (08:58→20:17)
[2022-07-20] MEDS: acetaZOLAMIDE SODIUM FOR INJ 500 MG VIAL IV PUSH (09:02)
--- NOTE | 2022-07-20 09:12 | WPDINTPN ---
Progress Note: A&P Assessment and Plan (1) Sepsis: Code(s): A41.9 - Sepsis, unspecified organism Status: Acute Assessment and Plan: Blood urine and sputum cultures sent on 06/17 negative till now Was On vancomycin and Unasyn 06/21 -DC vancomycin S/p 10 days of Unasyn Low procalcitonin -07/14/2022: Septic shock: WBC count trending up, patient is afebrile, chest x-ray shows bilateral diffuse infiltrates -obtain sputum culture -hold antibiotics for now -remains on Levophed, maintain mean arterial pressures >65 mmHg for adequate end organ in renal perfusion -urine output and kidney function improving -will give IV fluid bolus and maintenance IV fluids -07/15/2022 blood cultures negative x2 -07/15/2022 urine culture growing Proteus which is sensitive to Rocephin 07/15/2028 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 After few hours patient became tachypneic, with increased work of breathing and respiratory distress. Patient was given additional dose of Lasix and was placed on BiPAP. On BiPAP patient initially improved later deteriorated and was reintubated on 06/19 Post extubation I did not hear any stridor on exam. Patient was wheezing and grunting but it was not inspiratory stridor. Later I was told by the nursing staff the patient was stridorous prior to re-intubation. Status post Solu-Medrol -06/30: Patient coughed if his ETT overnight, ETT was full of thick secretions, patient was re-intubated. 07/01-tracheostomy done 07/02-patient appeared to have dislodged his tracheostomy tube. He was emergently reintubated and trach was removed. Patient had a new trach placed later in the evening by ENT 07/09: Patient tolerated PSV 5/5 all day. Was placed on CMV mode overnight. 07/10: Patient has been placed on PSV 5/5 since this morning and has been tolerating, will switch to ASV mode or CMV overnight 07/12: Patient has been on pressure support 5/5 all day all night continue bronchodilators (Atrovent and ipratropium) S/P Unasyn for a 10 day course. DC vancomycin 06/21 Blood pressures have been better, will diurese patient -chest x-ray this morning: Congestive heart failure, tracheostomy, small bilateral pleural effusion -currently on CMV mode of ventilation, peep of 5 on 30% FiO2 - He tolerated PSV 5/5 only for few hours yesterday before getting tachypnea and was switched back CMV -Will try PSV again today at 10 or 5 -will give diuretics today (3) Cardiac arrest with ventricular fibrillation: Code(s): I46.9 - Cardiac arrest, cause unspecified; I49.01 - Ventricular fibrillation Status: Acute Assessment and Plan: Patient presented with VFib arrest, ROSC within 15 minutes after EMS arrived and started CPR, (total down time was about 25 minutes.) -patient status post target temperature management, -elevated troponins likely related to cardiac arrest -post target temperature management he is following simple commands with all 4 extremities 06/16/2022: Patient had slow VFib/V-tach with no ICD discharge, requiring defibrillation x1, electrolytes were within normal limits patient was given amiodarone bolus and started on amiodarone infusion,. Cardiology was present during the episode. Cardiology going to evaluate AICD discharge thresholds Cardiology has switched amiodarone infusion to p.o. amiodarone now 06/14/2022 echocardiogram showed LV chamber dimension is severely en
[2022-07-20] MEDS: cefTRIAXone 2 GM in SODIUM CHLORIDE 0.9% IV 100 ML 200 ML IVPB (11:48)
--- NOTE | 2022-07-20 11:49 | PM.PNNEP ---
Progress Note: A&P Assessment and Plan (1) Acute kidney injury: Code(s): N17.9 - Acute kidney failure, unspecified Status: Acute Assessment and Plan: patient has low urine output and an elevated creatinine. His ultrasound shows an exophytic mass, possibly cancer. However does not show any acute changes that would cause the renal insufficiency. has seen the patient Urine 'lytes prerenal. UA has some white cells in it. Most likely prerenal azotemia due to hypotension his bp is better. He has been off pressors for few days. Oxygenation okay. Creatinine Improved to 1.2. Renal will sign off (2) Hypotension: Code(s): I95.9 - Hypotension, unspecified Status: Acute Assessment and Plan: resolved (3) Cardiac arrest with ventricular fibrillation: Code(s): I46.9 - Cardiac arrest, cause unspecified; I49.01 - Ventricular fibrillation Status: Acute Assessment and Plan: This was his admitting issue. He has not had no rest lately. (4) Respiratory failure: Code(s): J96.90 - Respiratory failure, unspecified, unspecified whether with hypoxia or hypercapnia Status: Acute Assessment and Plan: He remains on the ventilator per tracheostomy (5) Anemia: Code(s): D64.9 - Anemia, unspecified Status: Acute (6) Renal mass: Code(s): N28.89 - Other specified disorders of kidney and ureter Status: Acute Assessment and Plan: seen on U/S CT shows solid right renal mass. c/w renal cell cancer. urology on the case Plan hemoglobin is down a bit. Will check stool guaiacs Subjective Date/time seen: 07/20/22 11:49 Interval history: 07/16 pt is awake no sob no dizziness 07/17 patient is sitting at the side of the bed with physical therapy. He stood up almost on his own. He did not stand for very long and then sat back on the bed. 07/18 Patient is lying comfortably in bed. Daughter in the room. he sat up in a chair for several hours today and tolerated it pretty well. No chest pain or shortness of breath 07/19 Patient is awakened up in a chair. Daughter and are in the room. No shortness of breath or chest pain 07/20 Patient is sleeping comfortably. son is in the room Exam Narrative: WDWN in NAD skin no rash or subcu nodules head ncat lungs coarse bilaterally. cor reg no rub or gallop abd BS+ nontender and soft ext 1 bilateral edema. Objective Data Vital Signs Vital Signs: Vital Signs - 24 hr 07/19/22 13:20 07/19/22 12:00 07/19/22 14:00 Temperature 98.6 F Pulse Rate 81 103 H 80 Respiratory Rate 25 H 30 H Blood Pressure 92/69 L 137/88 Pulse Oximetry 92 96 95 Oxygen Delivery Mechanical Ventilation Fraction of Inspired Oxygen 30 07/19/22 17:37 07/19/22 16:00 07/19/22 12:00 Temperature 98 F Pulse Rate 68 74 Respiratory Rate 27 H Blood Pressure 109/85 Pulse Oximetry 100 97 96 Oxygen Delivery Mechanical Ventilation Mechanical Ventilation Fraction of Inspired Oxygen 30 30 07/19/22 12:00 07/19/22 14:00 07/19/22 16:00 Temperature Pulse Rate 96 80 85 Respiratory Rate Blood Pressure Pulse Oximetry Oxygen Delivery Fraction of Inspired Oxygen 07/19/22 18:00 07/19/22 18:00 07/19/22 16:00 Temperature Pulse Rate 86 86 Respiratory Rate 26 H Blood Pressure 118/60 Pulse Oximetry 97 97 Oxygen Delivery Mechanical Ventilation Fraction of Inspired Oxygen 30 07/19/22 16:00 07/19/22 20:07 07/19/22 20:07 Temperature Pulse Rate 68 68 Respiratory Rate 30 H Blood Pressure Pulse Oximetry 96 Oxygen Delivery Mechanical Ventilation Fraction of Inspired Oxygen 30 30 07/19/22 20:25 07/19/22 20:00 07/19/22 20:00 Temperature 97.5 F L Pulse Rate 63 84 Respiratory Rate 30 H 29 H Blood Pressure 122/81 Pulse Oximetry 93 Oxygen Delivery Fraction of Inspi
[2022-07-20] MEDS: SACUBITRIL/VALSARTAN 12-13 MG TABLET 1 TAB PO ×2 (11:58→20:16)
[2022-07-20 12:00] LABS: Glucose Point of Care 175 mg/dl (65-105)
--- NOTE | 2022-07-20 16:34 | PM.IMPN ---
Progress Note: A&P Assessment and Plan (1) Acute respiratory failure with hypoxia: Code(s): J96.01 - Acute respiratory failure with hypoxia Status: Acute Assessment and Plan: Acute respiratory failure likely related to cardiac arrest -patient was intubated ED on 06/11/2022 -patient was extubated on 06/19 after weaning trials for couple of days. After few hours patient became tachypneic, with increased work of breathing and respiratory distress. Patient was given additional dose of Lasix and was placed on BiPAP. On BiPAP patient initially improved later deteriorated and was reintubated on 06/19 Post extubation I did not hear any stridor on exam. Patient was wheezing and grunting but it was not inspiratory stridor. Later I was told by the nursing staff the patient was stridorous prior to re-intubation. Status post Solu-Medrol 06/21 -completed a course of Solu-Medrol. Cuff leak present today on exam. Failed PSV trial within minutes due to high RSBI. Placed on pressure support of 12/5. Continue as tolerated 06/22 -failed PSV weaning trial. Needs pressure support of 12/5 for adequate RSBI. Will continue as tolerated 06/23 -failed 5/8 PSV trial due to high RSBI. Requires 12/8 pressure support for adequate RSBI. Continue as tolerated 06/24 -failed weaning trial within minutes with high RSBI and respiratory distress. I increased pressure support up to 15 that did not help and patient's respiratory rate remained of 30 with visible use of accessory muscles and patient was in respiratory distress. 06/25: Failed pressure support, was started on ASV mode of ventilation, tolerated ASV all day long before he was switched to CMV for tachypnea and tachycardia 06/26: Patient tolerated pressure support ventilation 12/5 for about 2 hours, after that he was put on ASV all day long. Switched to CMV during night as he does not sleep in this start him on propofol so we can get some rest. -blood pressures are much improved this morning 06/27/2022: Patient did tolerate PSV 12/5 for roughly 2-1/2 hours and then was anxious, worked up because they had to clean him after his bowel movement and was placed on CMV mode of ventilation. Patient diuresed very well, chest x-ray with improvement on the right side. -06/29: patient diuresed well on 06/28, dropped his pressures was started on Levophed, will hold diuresis for now -06/30: Patient coughed if his ETT overnight, ETT was full of thick secretions, patient was re-intubated. 07/01-tracheostomy done 07/02-patient appeared to have dislodged his tracheostomy tube. He was emergently reintubated and trach was removed. Patient had a new trach placed later in the evening by ENT 07/03, 07/04, 07/05 -placed on pressure support ventilation of 15/ 5. Continue as tolerated. He did not tolerate lower pressure support due to high RSBI 07/06 -pressure support decreased to 12/5. He did not tolerate lower pressure support at this time 07/07-FiO2 weaned down to 28%. Patient placed on 5/5 pressure support ventilation he tolerated for little bit but then patient got tachypneic and in distress. Pressure support was increased back to 15/5 through the day and later at night he was switched back to CMV. Overnight 07/08-patient was too sedated to tolerate pressure support yesterday during the day 1129 -chest x-ray reviewed IMPRESSION: 1. Diffuse lung disease with mild improvement, consistent with pulmonary edema versus pneumonia. 2. Possible small pleural effusions. 3. Cardiomegaly. 07/09: Patient tolerated PSV 5/5 all day. Was placed on CMV mode overnight. 07/10: Patient has been placed on PSV 5/5 since this morning and has been tolerating, will switch to ASV mode or CMV overnight continue bronchodilators (Atrovent and ipratropium) S/P Unasyn for a 10 day course. DC vancomycin 06/21 Blood pressures are borderline, will hold Lasix today 07/20/2022 interval history: 77-year-old male presented with septic shock and was in respi
[2022-07-20 17:20] LABS: Glucose Point of Care 160 mg/dl (65-105)
[2022-07-20 20:14] LABS: Glucose Point of Care 154 mg/dl (65-105)
[2022-07-20] MEDS: INSULIN GLARGINE (*BKC) 100 UNITS/ML 45 UNITS SUB-Q (20:15)
[2022-07-21] VITALS (29 sets, daily range): BP systolic 97–149; BP diastolic 55–84; PULSE 59–87; RESP 18–29; TEMP 36.3–36.9; O2SAT 91–100
[2022-07-21 02:09] LABS: Glucose Point of Care 160 mg/dl (65-105)
[2022-07-21] MEDS: IPRATROPIUM BR 0.02% INH SOLN 0.5 MG/2.5 ML VIAL INHALATION ×4 (04:01→20:09)
[2022-07-21] MEDS: ALBUTEROL SULFATE NEB 2.5 MG/3 ML INH INHALATION ×4 (04:01→20:08)
[2022-07-21 05:46] LABS: Hematocrit 26.8 % (42.0-52.0); Hemoglobin 8.1 g/dL (14.0-18.0); Mean Corpuscular HGB Conc 30.2 g/dl (32-36); Mean Corpuscular Hemoglobin 29.6 pg (26-34); Mean Corpuscular Volume 97.8 fl (80-100); Mean Platelet Volume 10.3 fl (7.4-10.4); Platelet Count Result 322 k/mm3 (150-375); Red Blood Count 2.74 M/mm3 (4.6-6.20); Red Cell Distribution Width 14.6 % (11.5-14.5)
[2022-07-21] MEDS: CENTRAL LINE FLUSH 10 ML IV PUSH ×2 (05:46→20:19)
[2022-07-21 06:00] LABS: Alanine Aminotransferase 25 U/L (6-50); Albumin Level 3.3 g/dL (3.5-5.1); Alkaline Phosphatase 110 U/L (38-126); Anion Gap 4 mmol/L (8-16); Aspartate Amino Transferase 27 U/L (17-59); Bilirubin,Total 0.4 mg/dL (0.2-1.3); Blood Urea Nitrogen 65 mg/dL (9-20); Calcium 8.8 mg/dL (8.4-10.2); Carbon Dioxide 29 mmol/L (22-30); Chloride 102 mmol/L (98-107); Estimated CRCL calculation 56 ml/min; Estimated Glomerular Filt Rate 59; Glucose 146 mg/dL (65-110); Phosphorus 3.3 mg/dL (2.5-4.5); Potassium 4.7 mmol/L (3.4-5.0); Sodium 135 mmol/L (137-145)
[2022-07-21 06:52] LABS: Glucose Point of Care 143 mg/dl (65-105)
--- NOTE | 2022-07-21 07:34 | PC.NURSE ---
0530- This nurse went to change tube feedings and noticed patient's peg tube was completely out. Patient was restrained. 0545-Dr. Segundo (GI) called. 06- Dr. Brown exchange called and was told he is taking his own calls this weekend. 644- Dr. Brown exchange called second time.
[2022-07-21] MEDS: DEXTROSE 5%/LACTATED RINGERS 1,000 ML 50 ML IV CONT (09:23)
[2022-07-21] MEDS: cefTRIAXone 2 GM in SODIUM CHLORIDE 0.9% IV 100 ML 200 ML IVPB (10:21)
[2022-07-21] MEDS: QUEtiapine FUMARATE 25 MG TABLET 50 MG PO ×2 (10:29→20:19)
[2022-07-21] MEDS: FUROSEMIDE INJ 40 MG/4 ML VIAL 20 MG IV PUSH (10:29)
[2022-07-21] MEDS: ATORVASTATIN 40 MG TABLET PO (10:29)
[2022-07-21] MEDS: PANTOPRAZOLE SODIUM IV 40 MG VIAL IV PUSH ×2 (10:29→20:19)
[2022-07-21] MEDS: SACUBITRIL/VALSARTAN 12-13 MG TABLET 1 TAB PO ×2 (10:30→20:19)
[2022-07-21] MEDS: AMIODARONE HCL 200 MG TABLET 400 MG PO (10:30)
[2022-07-21] MEDS: TOLNAFTATE 1% POWDER 45 GM BTL 1 APPLIC TOPICAL ×2 (10:32→20:19)
--- NOTE | 2022-07-21 10:57 | P.PNINT_ITS ---
Progress Note: A&P Assessment and Plan (1) Sepsis: Code(s): A41.9 - Sepsis, unspecified organism Status: Acute Assessment and Plan: Blood urine and sputum cultures sent on 06/17 negative till now Was On vancomycin and Unasyn 06/21 -DC vancomycin S/p 10 days of Unasyn Low procalcitonin -07/14/2022: Septic shock: WBC count trending up, patient is afebrile, chest x-ray shows bilateral diffuse infiltrates -obtain sputum culture -hold antibiotics for now -remains on Levophed, maintain mean arterial pressures >65 mmHg for adequate end organ in renal perfusion -urine output and kidney function improving -will give IV fluid bolus and maintenance IV fluids -07/15/2022 blood cultures negative x2 -07/15/2022 urine culture growing Proteus which is sensitive to Rocephin 07/15/2028 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 After few hours patient became tachypneic, with increased work of breathing and respiratory distress. Patient was given additional dose of Lasix and was placed on BiPAP. On BiPAP patient initially improved later deteriorated and was reintubated on 06/19 Post extubation I did not hear any stridor on exam. Patient was wheezing and grunting but it was not inspiratory stridor. Later I was told by the nursing staff the patient was stridorous prior to re-intubation. Status post Solu- Medrol -06/30: Patient coughed if his ETT overnight, ETT was full of thick secretions, patient was re-intubated. 07/01-tracheostomy done 07/02-patient appeared to have dislodged his tracheostomy tube. He was emergently reintubated and trach was removed. Patient had a new trach placed later in the evening by ENT 07/09: Patient tolerated PSV 5/5 all day. Was placed on CMV mode overnight. 07/10: Patient has been placed on PSV 5/5 since this morning and has been tolerating, will switch to ASV mode or CMV overnight 07/12: Patient has been on pressure support 5/5 all day all night continue bronchodilators (Atrovent and ipratropium) S/P Unasyn for a 10 day course. DC vancomycin 06/21 Blood pressures have been better, will diurese patient -chest x-ray this morning: Congestive heart failure, tracheostomy, small bilateral pleural effusion -currently on CMV mode of ventilation, peep of 5 on 30% FiO2 - He tolerated PSV 5/5 only for few hours yesterday before getting tachypnea and was switched back CMV -he tolerated PSV 10/5 for few hours -will give diuretics today (3) Cardiac arrest with ventricular fibrillation: Code(s): I46.9 - Cardiac arrest, cause unspecified; I49.01 - Ventricular fibrillation Status: Acute Assessment and Plan: Patient presented with VFib arrest, ROSC within 15 minutes after EMS arrived and started CPR, (total down time was about 25 minutes.) -patient status post target temperature management, -elevated troponins likely related to cardiac arrest -post target temperature management he is following simple commands with all 4 extremities 06/16/2022: Patient had slow VFib/V-tach with no ICD discharge, requiring defibrillation x1, electrolytes were wi
[2022-07-21] MEDS: FLUCONAZOLE 100 MG TABLET FEED TUBE (11:03)
[2022-07-21 11:20] LABS: Glucose Point of Care 160 mg/dl (65-105)
--- NOTE | 2022-07-21 11:21 | WPDGIPROGNO ---
Progress Note: A&P Assessment and Plan (1) Gastrostomy tube dysfunction: Code(s): K94.23 - Gastrostomy malfunction Status: Acute Assessment and Plan: Peg tube became dislodged sometime throughout the night. 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 Replacement of PEG tube will now require repeat endoscopic PEG tube replacement. This can be performed this next week. Will ask Dr. Brown to follow up in the morning when he returns from the weekend. Anticoagulants will need to be held. In the interim patient may benefit from NG tube feedings. (2) Cardiac arrest with ventricular fibrillation: Code(s): I46.9 - Cardiac arrest, cause unspecified; I49.01 - Ventricular fibrillation Status: Acute (3) CHF (congestive heart failure): Code(s): I50.9 - Heart failure, unspecified Status: Acute (4) Respiratory failure: Code(s): J96.90 - Respiratory failure, unspecified, unspecified whether with hypoxia or hypercapnia Status: Acute Subjective Date/time seen: 07/21/22 11:22 Patient is seen today in the absence Dr. Brown. Because of dislodged PEG tube. Patient initially admitted to the hospital 06/11/2022. He has a significant history of atrial flutter, hypertension, congestive heart failure, chronic kidney disease, implanted defibrillator. Moderate aortic stenosis a, pay but patient has required intermittent ventilator use. Has remained in the intensive care unit since that time. Patient seen by Dr. Brown with PEG tube placement on 07/01/2022. Is become dislodged several times in the intervening weeks. This morning was found to be dislodged and I was called to replace. It is not certain how it became removed. Review of Systems Review of Systems: Review of systems noncontributory. Exam Narrative: Physical exam reveals patient comfortable. Lying in bed. HEENT exam unremarkable. Tracheostomy noted. Lungs reveal scattered rhonchi. Heart without murmur. Abdomen bowel sounds are present somewhat obese. Former PEG site the upper abdomen noted. This is fairly well closed in. Unable to introduce Newberry catheter other replacement PEG tube through this orifice at present. Objective Data Vital Signs Vital Signs: Vital Signs - 24 hr 07/20/22 11:31 07/20/22 11:37 07/20/22 11:37 Temperature Pulse Rate 85 Respiratory Rate Blood Pressure Pulse Oximetry 99 100 Oxygen Delivery Mechanical Ventilation Mechanical Ventilation Fraction of Inspired Oxygen 30 30 30 07/20/22 12:00 07/20/22 12:00 07/20/22 12:00 Temperature 98.7 F Pulse Rate 66 66 Respiratory Rate 26 H Blood Pressure 109/63 Pulse Oximetry 100 Oxygen Delivery Trach Collar Fraction of Inspired Oxygen 07/20/22 13:41 07/20/22 14:00 07/20/22 14:00 Temperature Pulse Rate 87 87 Respiratory Rate 20 Blood Pressure 119/71 Pulse Oximetry 100 Oxygen Delivery Mechanical Ventilation Fraction of Inspired Oxygen 07/20/22 15:06 07/20/22 15:06 07/20/22 15:59 Temperature Pulse Rate 86 89 Respiratory Rate 25 H Blood Pressure Pulse Oximetry 100 100 Oxygen Delivery Mechanical Ventilation Mechanical Ventilation Fraction of Inspired Oxygen 30 30 07/20/22 16:00 07/20/22 16:00 07/20/22 17:49 Temperature 98.2 F Pulse Rate 78 79 79 Respiratory Rate 20 Blood Pressure 84/60 L Pulse Oximetry 98 100 Oxygen Delivery Mechanical Ventilation Fraction of Inspired Oxygen 30 07/20/22 18:00 07/20/22 18:00 07/20/22 20:00 Temperature Pulse Rate 77 77 Respiratory Rate 25 H Blood Pressure 89/74 L Pulse Oximetry 100 Oxygen Delivery Fraction of Inspired Oxygen 30 07/20/22 20:00 07/20/22 20:00 07/20/22 22:00 Temperature 97.5 F L Pulse Rate 66 63 66 Respiratory Rate 27 H Blood Pressure 121/70 Pulse Oximetry 99 Oxygen Delivery Fraction of Inspired Oxygen 07/20/22 20:00 07/20/22 22:00 07/20/22 19:44
[2022-07-21 23:25] LABS: Glucose Point of Care 124 mg/dl (65-105)
[2022-07-22] VITALS (28 sets, daily range): BP systolic 97–122; BP diastolic 59–76; PULSE 60–88; RESP 16–28; TEMP 36.3–36.8; O2SAT 95–100
[2022-07-22] MEDS: IPRATROPIUM BR 0.02% INH SOLN 0.5 MG/2.5 ML VIAL INHALATION ×4 (01:42→20:37)
[2022-07-22] MEDS: ALBUTEROL SULFATE NEB 2.5 MG/3 ML INH INHALATION ×4 (01:42→20:37)
[2022-07-22] MEDS: DEXTROSE 5%/LACTATED RINGERS 1,000 ML 50 ML IV CONT (03:52)
[2022-07-22] MEDS: CENTRAL LINE FLUSH 10 ML IV PUSH ×3 (05:10→20:04)
[2022-07-22 05:19] LABS: Hematocrit 27.8 % (42.0-52.0); Hemoglobin 8.3 g/dL (14.0-18.0); Mean Corpuscular HGB Conc 29.9 g/dl (32-36); Mean Corpuscular Hemoglobin 29.9 pg (26-34); Mean Platelet Volume 11.6 fl (7.4-10.4); Platelet Count Result 252 k/mm3 (150-375); Red Blood Count 2.78 M/mm3 (4.6-6.20); Red Cell Distribution Width 14.6 % (11.5-14.5); White Blood Count 9.3 K/mm3 (4.5-10.0)
[2022-07-22 05:33] LABS: Alanine Aminotransferase 26 U/L (6-50); Albumin Level 3.2 g/dL (3.5-5.1); Alkaline Phosphatase 102 U/L (38-126); Anion Gap 5 mmol/L (8-16); Aspartate Amino Transferase 26 U/L (17-59); Bilirubin,Total 0.4 mg/dL (0.2-1.3); Blood Urea Nitrogen 52 mg/dL (9-20); Carbon Dioxide 27 mmol/L (22-30); Chloride 105 mmol/L (98-107); Estimated CRCL calculation 52 ml/min; Estimated Glomerular Filt Rate 53; Glucose 146 mg/dL (65-110); Magnesium 2.2 mg/dL (1.6-2.3); Phosphorus 3.6 mg/dL (2.5-4.5); Potassium 4.4 mmol/L (3.4-5.0); Sodium 137 mmol/L (137-145)
--- NOTE | 2022-07-22 09:10 | PCOTNOTE ---
Attempted to see patient for OT, patient requested to come back later. Notified patient that later he is to get his PEG tube replaced and he may not be available to see. Patient continued to request therapist come back. RN notified.
[2022-07-22] MEDS: ATORVASTATIN 40 MG TABLET PO (09:32)
[2022-07-22] MEDS: AMIODARONE HCL 200 MG TABLET 400 MG PO (09:32)
[2022-07-22] MEDS: QUEtiapine FUMARATE 25 MG TABLET 50 MG PO ×2 (09:32→20:03)
[2022-07-22] MEDS: PANTOPRAZOLE SODIUM IV 40 MG VIAL IV PUSH ×2 (09:33→20:03)
[2022-07-22] MEDS: SACUBITRIL/VALSARTAN 12-13 MG TABLET 1 TAB PO ×2 (09:33→20:04)
[2022-07-22] MEDS: TOLNAFTATE 1% POWDER 45 GM BTL 1 APPLIC TOPICAL ×2 (09:33→20:04)
[2022-07-22] MEDS: FUROSEMIDE INJ 40 MG/4 ML VIAL 20 MG IV PUSH (09:33)
[2022-07-22] MEDS: FLUCONAZOLE 100 MG TABLET FEED TUBE (09:33)
--- NOTE | 2022-07-22 10:53 | WPDINTPN ---
Progress Note: A&P Assessment and Plan (1) Sepsis: Code(s): A41.9 - Sepsis, unspecified organism Status: Acute Assessment and Plan: Blood urine and sputum cultures sent on 06/17 negative till now Was On vancomycin and Unasyn 06/21 -DC vancomycin S/p 10 days of Unasyn Low procalcitonin -07/14/2022: Septic shock: WBC count trending up, patient is afebrile, chest x-ray shows bilateral diffuse infiltrates -obtain sputum culture -hold antibiotics for now -remains on Levophed, maintain mean arterial pressures >65 mmHg for adequate end organ in renal perfusion -urine output and kidney function improving -will give IV fluid bolus and maintenance IV fluids -07/15/2022 blood cultures negative x2 -07/15/2022 urine culture growing Proteus which is sensitive to Rocephin 07/15/2028 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 After few hours patient became tachypneic, with increased work of breathing and respiratory distress. Patient was given additional dose of Lasix and was placed on BiPAP. On BiPAP patient initially improved later deteriorated and was reintubated on 06/19 Post extubation I did not hear any stridor on exam. Patient was wheezing and grunting but it was not inspiratory stridor. Later I was told by the nursing staff the patient was stridorous prior to re-intubation. Status post Solu-Medrol -06/30: Patient coughed if his ETT overnight, ETT was full of thick secretions, patient was re-intubated. 07/01-tracheostomy done 07/02-patient appeared to have dislodged his tracheostomy tube. He was emergently reintubated and trach was removed. Patient had a new trach placed later in the evening by ENT 07/09: Patient tolerated PSV 5/5 all day. Was placed on CMV mode overnight. 07/10: Patient has been placed on PSV 5/5 since this morning and has been tolerating, will switch to ASV mode or CMV overnight 07/12: Patient has been on pressure support 5/5 all day all night continue bronchodilators (Atrovent and ipratropium) S/P Unasyn for a 10 day course. DC vancomycin 06/21 Blood pressures have been better, will diurese patient -chest x-ray this morning: Congestive heart failure, tracheostomy, small bilateral pleural effusion -currently on CMV mode of ventilation, peep of 5 on 30% FiO2 -hold PSV trial as patient received sedation and is going to get a procedure today -continue diuretics today (3) Cardiac arrest with ventricular fibrillation: Code(s): I46.9 - Cardiac arrest, cause unspecified; I49.01 - Ventricular fibrillation Status: Acute Assessment and Plan: Patient presented with VFib arrest, ROSC within 15 minutes after EMS arrived and started CPR, (total down time was about 25 minutes.) -patient status post target temperature management, -elevated troponins likely related to cardiac arrest -post target temperature management he is following simple commands with all 4 extremities 06/16/2022: Patient had slow VFib/V-tach with no ICD discharge, requiring defibrillation x1, electrolytes were within normal limits patient was given amiodarone bolus and started on amiodarone infusion,. Cardiology was present during the episode. Cardiology going to evaluate AICD discharge thresholds Cardiology has switched amiodarone infusion to p.o. amiodarone now 06/14/2022 echocardiogram showed LV chamber dimension is severely enlarged, severely reduced LV systolic function with EF of 25
--- NOTE | 2022-07-22 11:04 | PCFNICU ---
ICU Rounding Note: Pt current nutrition is Vital AF 1.2 at 65 ml/hr. Last recorded weight is 119.2 kg. Bowel Motility:+BM reported 07/20 Labs Reviewed:Glu 146, BUN 52, GFR 53, Alb 3.2,Hgb 8.3,Hct 27.8 Meds Noted:Seroquel, Protonix, Ativan, Lasix, Lantus, NovoLog, Lipitor, Eliquis Skin: Pressure Ulcer stage II-buttock Additional Notes: Patient remains current with Trach. Pulled PEG last night, plans to reinsert this afternoon. Tube feedings to restart of Vital AF 1.2 at 65 ml/hr. Flush 30 ml q 4 hours. Shaan BID for wound healing. Discharge plan LTAC. Following daily in ICU rounds. follow up T/F monitor feeding tolerance, per policy gastric residual, wt and labs.
[2022-07-22 12:32] LABS: Glucose Point of Care 135 mg/dl (65-105)
[2022-07-22] MEDS: cefTRIAXone 2 GM in SODIUM CHLORIDE 0.9% IV 100 ML 200 ML IVPB (12:45)
[2022-07-22] MEDS: PROPOFOL IV EMULSION 100 ML 3.58 MG IV CONT (13:52)
--- NOTE | 2022-07-22 14:43 | SUR.OPER ---
GIVS GIVEN BY ICU NURSE, ALYSON VILLEDA.
--- NOTE | 2022-07-22 16:20 | P.DS_ITS ---
DS: Admitting Diagnosis Discharge Date 07/23/2022 Admitting Diagnosis cardiac arrest DS: Discharge Diagnosis Discharge Diagnosis (1) Acute respiratory failure with hypoxia: Code(s): J96.01 - Acute respiratory failure with hypoxia Status: Acute Assessment and Plan: Acute respiratory failure likely related to cardiac arrest -patient was intubated ED on 06/11/2022 -patient was extubated on 06/19 after weaning trials for couple of days. After few hours patient became tachypneic, with increased work of breathing and respiratory distress. Patient was given additional dose of Lasix and was placed on BiPAP. On BiPAP patient initially improved later deteriorated and was reintubated on 06/19 Post extubation I did not hear any stridor on exam. Patient was wheezing and grunting but it was not inspiratory stridor. Later I was told by the nursing staff the patient was stridorous prior to re-intubation. Status post Solu- Medrol 06/21 -completed a course of Solu-Medrol. Cuff leak present today on exam. Failed PSV trial within minutes due to high RSBI. Placed on pressure support of 12/5. Continue as tolerated 06/22 -failed PSV weaning trial. Needs pressure support of 12/5 for adequate RSBI. Will continue as tolerated 06/23 -failed 5/8 PSV trial due to high RSBI. Requires 12/8 pressure support for adequate RSBI. Continue as tolerated 06/24 -failed weaning trial within minutes with high RSBI and respiratory distress. I increased pressure support up to 15 that did not help and patient's respiratory rate remained of 30 with visible use of accessory muscles and patient was in respiratory distress. 06/25: Failed pressure support, was started on ASV mode of ventilation, tolerated ASV all day long before he was switched to CMV for tachypnea and tachycardia 06/26: Patient tolerated pressure support ventilation 12/5 for about 2 hours, after that he was put on ASV all day long. Switched to CMV during night as he does not sleep in this start him on propofol so we can get some rest. -blood pressures are much improved this morning 06/27/2022: Patient did tolerate PSV 12/5 for roughly 2-1/2 hours and then was anxious, worked up because they had to clean him after his bowel movement and was placed on CMV mode of ventilation. Patient diuresed very well, chest x-ray with improvement on the right side. -06/29: patient diuresed well on 06/28, dropped his pressures was started on Levophed, will hold diuresis for now -06/30: Patient coughed if his ETT overnight, ETT was full of thick secretions, patient was re-intubated. 07/01-tracheostomy done 07/02-patient appeared to have dislodged his tracheostomy tube. He was emergently reintubated and trach was removed. Patient had a new trach placed later in the evening by ENT 07/03, 07/04, 07/05 -placed on pressure support ventilation of 15/ 5. Continue as tolerated. He did not tolerate lower pressure support due to high RSBI 07/06 -pressure support decreased to 12/5. He did not tolerate lower pressure support at this time 07/07-FiO2 weaned down to 28%. Patient placed on 5/5 pressure support ventilation he tolerated for little bit but then patient got tachypneic and in distress. Pressure support was increased back to 15/5 through the day and later at night he was switched back to CMV. Overnight 07/08-patient was too sedated to tolerate pressure support yesterday during the day 1129 -chest x-ray reviewed IMPRESSION: 1. Diffuse lung disease with mild improvement, consistent with pulmonary edema versus pneumonia. 2. Possible small pleural effusions. 3. Cardiomegaly. 07/09: Patient tolerated PSV 5/5 all day. Was placed on CMV mode overnight. 07/10
[2022-07-22 17:32] LABS: Glucose Point of Care 127 mg/dl (65-105)
[2022-07-23] VITALS (8 sets, daily range): BP systolic 92–133; BP diastolic 58–91; PULSE 62–85; RESP 18–20; TEMP 36.8–36.9; O2SAT 98–100
[2022-07-23 00:10] LABS: Glucose Point of Care 134 mg/dl (65-105)
[2022-07-23] MEDS: ALBUTEROL SULFATE NEB 2.5 MG/3 ML INH INHALATION (02:11)
[2022-07-23] MEDS: IPRATROPIUM BR 0.02% INH SOLN 0.5 MG/2.5 ML VIAL INHALATION (02:11)
[2022-07-23] MEDS: DEXTROSE 5%/LACTATED RINGERS 1,000 ML 40 ML IV CONT (04:00)
[2022-07-23 04:24] LABS: Hematocrit 27.6 % (42.0-52.0); Hemoglobin 8.2 g/dL (14.0-18.0); Mean Corpuscular HGB Conc 29.7 g/dl (32-36); Mean Corpuscular Hemoglobin 29.2 pg (26-34); Mean Corpuscular Volume 98.2 fl (80-100); Mean Platelet Volume 9.8 fl (7.4-10.4); Platelet Count Result 369 k/mm3 (150-375); Red Blood Count 2.81 M/mm3 (4.6-6.20); Red Cell Distribution Width 14.4 % (11.5-14.5); White Blood Count 9.9 K/mm3 (4.5-10.0)
[2022-07-23 04:49] LABS: Alanine Aminotransferase 25 U/L (6-50); Albumin Level 3.1 g/dL (3.5-5.1); Alkaline Phosphatase 112 U/L (38-126); Anion Gap 5 mmol/L (8-16); Aspartate Amino Transferase 25 U/L (17-59); Bilirubin,Total 0.4 mg/dL (0.2-1.3); Blood Urea Nitrogen 39 mg/dL (9-20); Calcium 8.9 mg/dL (8.4-10.2); Carbon Dioxide 30 mmol/L (22-30); Chloride 107 mmol/L (98-107); Estimated CRCL calculation 52 ml/min; Estimated Glomerular Filt Rate 53; Glucose 153 mg/dL (65-110); Phosphorus 3.2 mg/dL (2.5-4.5); Potassium 4.2 mmol/L (3.4-5.0); Sodium 142 mmol/L (137-145)
[2022-07-23] MEDS: CENTRAL LINE FLUSH 10 ML IV PUSH (06:11)
--- NOTE | 2022-07-23 07:50 | WPDGIPROGNO ---
Progress Note: A&P Assessment and Plan (1) PEG (percutaneous endoscopic gastrostomy) status: Code(s): Z93.1 - Gastrostomy status Status: Acute Assessment and Plan: PEG tube placed yesterday. Appears to be healing adequately. Plan to start tube feedings at30cc an hour and advance as necessary per primary care service. Local care to PEG site suggest with Betadine or hydrogen peroxide every 8hours for 1 week. Okay from my perspective for patient be transferred if necessary. Subjective Date/time seen: 07/23/22 07:50 Patient alert comfortable this morning. Remains on trach. Had PEG tube placed yesterday. No complaints. Review of Systems Review of Systems: Review of systems noncontributory. Exam Narrative: Physical exam reveals lungs to have a few rhonchi. Abdomen is obese. Peg tube in good position upper left quadrant of the abdomen. Bowel sounds are present soft nontender. Peg site appears be healing well. Objective Data Vital Signs Vital Signs: Vital Signs - 24 hr 07/22/22 09:18 07/22/22 09:19 07/22/22 09:23 Temperature Pulse Rate 87 86 83 Respiratory Rate 20 22 H Blood Pressure Pulse Oximetry 100 Oxygen Delivery Mechanical Ventilation Fraction of Inspired Oxygen 30 07/22/22 09:32 07/22/22 11:51 07/22/22 13:52 Temperature Pulse Rate 65 85 75 Respiratory Rate 28 H Blood Pressure Pulse Oximetry 95 Oxygen Delivery Mechanical Ventilation Fraction of Inspired Oxygen 30 07/22/22 14:57 07/22/22 14:55 07/22/22 15:02 Temperature Pulse Rate 72 70 72 Respiratory Rate 16 16 Blood Pressure Pulse Oximetry 97 Oxygen Delivery Mechanical Ventilation Fraction of Inspired Oxygen 30 07/22/22 08:00 07/22/22 08:00 07/22/22 08:00 Temperature 97.6 F Pulse Rate 62 83 Respiratory Rate 18 Blood Pressure 117/70 Pulse Oximetry 99 Oxygen Delivery Fraction of Inspired Oxygen 30 07/22/22 08:00 07/22/22 16:00 07/22/22 16:00 Temperature Pulse Rate 77 Respiratory Rate Blood Pressure Pulse Oximetry 97 Oxygen Delivery Mechanical Ventilation Fraction of Inspired Oxygen 30 30 07/22/22 10:00 07/22/22 12:00 07/22/22 14:00 Temperature 97.8 F Pulse Rate 63 64 69 Respiratory Rate 21 H 21 H 18 Blood Pressure 108/69 115/72 108/74 Pulse Oximetry 99 99 99 Oxygen Delivery Fraction of Inspired Oxygen 07/22/22 10:00 07/22/22 12:00 07/22/22 14:00 Temperature Pulse Rate 63 65 69 Respiratory Rate Blood Pressure Pulse Oximetry Oxygen Delivery Fraction of Inspired Oxygen 07/22/22 12:00 07/22/22 12:00 07/22/22 16:00 Temperature Pulse Rate Respiratory Rate Blood Pressure Pulse Oximetry 97 97 Oxygen Delivery Mechanical Ventilation Mechanical Ventilation Fraction of Inspired Oxygen 30 30 30 07/22/22 16:00 07/22/22 16:47 07/22/22 18:00 Temperature 97.8 F Pulse Rate 75 88 83 Respiratory Rate 21 H Blood Pressure 122/69 Pulse Oximetry 100 99 Oxygen Delivery Mechanical Ventilation Fraction of Inspired Oxygen 30 07/22/22 18:00 07/22/22 20:00 07/22/22 20:32 Temperature 98.3 F Pulse Rate 86 82 84 Respiratory Rate 20 18 Blood Pressure 110/69 119/69 Pulse Oximetry 100 100 97 Oxygen Delivery Mechanical Ventilation Fraction of Inspired Oxygen 30 07/22/22 20:38 07/22/22 20:00 07/22/22 20:00 Temperature Pulse Rate 77 83 Respiratory Rate 22 H Blood Pressure Pulse Oximetry Oxygen Delivery Fraction of Inspired Oxygen 30 07/22/22 22:00 07/22/22 20:00 07/22/22 22:00 Temperature Pulse Rate 61 60 Respiratory Rate 20 Blood Pressure 113/71 Pulse Oximetry 99 99 Oxygen Delivery Mechanical Ventilation Fraction of Inspired Oxygen 30 07/22/22 23:29 07/23/22 00:00 07/23/22 00:00 Temperature Pulse Rate 61 80 Respiratory Rate Blood Pressure Pulse Oximetry 98 99 Oxygen Delivery Mechanical V
== END 2022-07-23 08:18 | disposition short-term general hospital (02) | DRG 4 ==
LOC: ANHED 06-12 00:51 → ANHICU 06-12 01:17
PROVIDERS: Hospitalist; Internal Medicine; Internal Medicine Gastroenterology; Internal Medicine Nephrology; Otolaryngology; Admitting Provider Internal Medicine; Emergency Provider Emergency Medicine; PCP Internal Medicine; Visit Provider Family Medicine
PROC: 0B110F4 Bypass Trachea to Cutaneous with Tracheostomy Device, Open Approach (ICD-10-PCS; principal; 2022-07-01 10:00)
PROC: 0DJ08ZZ Inspection of Upper Intestinal Tract, Via Natural or Artificial Opening Endoscopic (ICD-10-PCS; CPT 43235; principal; 2022-07-02 11:15)
PROC: 0DH63UZ Insertion of Feeding Device into Stomach, Percutaneous Approach (ICD-10-PCS; CPT 43246; 2022-07-02 11:15)
PROC: 0DH63UZ Insertion of Feeding Device into Stomach, Percutaneous Approach (ICD-10-PCS; CPT 43246; principal; 2022-07-22 15:15)
DX: I49.01 Ventricular fibrillation (principal); I50.23 Acute on chronic systolic (congestive) heart failure; J96.01 Acute respiratory failure with hypoxia; A41.9 Sepsis, unspecified organism; R65.21 Severe sepsis with septic shock; N17.9 Acute kidney failure, unspecified; E87.20 Acidosis, unspecified; G93.49 Other encephalopathy; K94.23 Gastrostomy malfunction; Z68.41 Body mass index [BMI] 40.0-44.9, adult; Z95.810 Presence of automatic (implantable) cardiac defibrillator; Z20.822 Contact with and (suspected) exposure to COVID-19; N18.9 Chronic kidney disease, unspecified; I12.9 Hypertensive chronic kidney disease with stage 1 through stage 4 chronic kidney disease, or unspecified chronic kidney disease; E11.22 Type 2 diabetes mellitus with diabetic chronic kidney disease; E11.65 Type 2 diabetes mellitus with hyperglycemia; E78.5 Hyperlipidemia, unspecified; I71.40 Abdominal aortic aneurysm, without rupture, unspecified; I42.0 Dilated cardiomyopathy; I46.2 Cardiac arrest due to underlying cardiac condition; E66.01 Morbid (severe) obesity due to excess calories; E87.6 Hypokalemia; D63.1 Anemia in chronic kidney disease; Z79.01 Long term (current) use of anticoagulants; Z82.49 Family history of ischemic heart disease and other diseases of the circulatory system; Z79.899 Other long term (current) drug therapy
CPT/HCPCS: 31500; 36415; 36569; 36600; 43246; 51702; 70450; 71045; 71275; 74019; 74176; 76775; 80048; 80053; 80069; 80202; 81001; 82274; 82375; 82436; 82550; 82565; 82570; 82805; 82948; 83036; 83050; 83605; 83735; 83880; 84100; 84133; 84145; 84300; 84478; 84484; 85025; 85027; 85055; 85610; 85730; 85999; 87040; 87070; 87077; 87086; 87088; 87186; 87205; 93005; 93970; 94002; 94003; 94640; 96365; 96366; 96375; 97110; 97162; 97167; 97530; 99291; C1752; A9270; C1751; C8929; C9113; J0131; J0171; J0282; J0295; J0330; J0690; J0696; J1120; J1644; J1650; J1815; J1940; J2060; J2250; J2270; J2370; J2405; J2704; J2765; J2920; J3010; J3370; J3480; J7030; J7040; J7050; J7060; J7120; J7121; P9045; P9047; Q9957; Q9967; U0003; U0005